=== PATIENT | male | born 1955 | race Caucasian/White ===

== ENCOUNTER → 2020-03-28 14:55 | Outpatient (BNVA) | payer MEDICARE, OTHER, SELFPAY | PROVIDERS: PCP Internal Medicine; Referring Provider Internal Medicine; Visit Provider Internal Medicine Cardiovascular Disease | DX: R06.00 Dyspnea, unspecified (principal); I48.0 Paroxysmal atrial fibrillation; R09.89 Other specified symptoms and signs involving the circulatory and respiratory systems; Z87.891 Personal history of nicotine dependence | CPT/HCPCS: 93005; 99212 ==

== ENCOUNTER 2020-04-11 14:54 | Outpatient (REF) | payer MEDICARE, OTHER, SELFPAY ==
--- NOTE | 2020-04-11 15:16 | US_ITS ---
EXAMINATION: US EXTRACRANIAL CAROTID DUPLEX, BILATERAL CLINICAL INFORMATION: Left carotid bruit COMPARISON: None TECHNIQUE: Real-time ultrasound and Doppler techniques (integrating B-mode 2-D vascular images, Doppler spectral analysis and color-flow Doppler imaging) were utilized to interrogate the extracranial carotid arteries, the vertebral arteries and proximal subclavian arteries bilaterally. The degree of stenosis is determined by criteria similar to NASCET. FINDINGS: Right Side: 1. There is moderate calcified and noncalcified atherosclerotic plaque seen in the bifurcation/proximal ICA region. 2. The common carotid artery PSV proximally is 161 cm/s and distally 151 cm/s. 3. The proximal internal carotid artery velocities are 156 cm/s systolic and 22 cm/s diastolic. 4. The proximal external carotid artery PSV is 153 cm/s. 5. The vertebral artery shows antegrade flow. 6. The subclavian artery waveforms are normal. Peak systolic velocity measures 221 cm/s suggestive of stenosis.. Left Side: 1. There is significant noncalcified or soft plaque seen in the left common carotid artery. There is mild calcified and noncalcified atherosclerotic plaque seen in the bifurcation/proximal ICA region. 2. The common carotid artery PSV proximally is 185 cm/s and distally 521 cm/s. 3. The proximal internal carotid artery velocities are 85 cm/s systolic and 17 cm/s diastolic. 4. The proximal external carotid artery PSV is 205 cm/s. 5. The vertebral artery shows antegrade flow. 6. The subclavian artery waveforms are normal. US/US carotid duplex BI IMPRESSION: 1. RIGHT: Moderate calcified and noncalcified plaque. 50-79% right ICA stenosis. Increased peak systolic velocity suggestive of right subclavian stenosis 2. LEFT: Severe noncalcified soft plaque in the left common carotid artery. Markedly increased peak systolic velocity in the common carotid artery suggestive of common carotid artery stenosis. Mild calcified and noncalcified plaque at the left carotid bulb. 0-49% left ICA stenosis. Increased peak systolic velocity suggestive of left ECA stenosis.
== END 2020-04-11 14:55 | disposition home or self-care (01) ==
LOC: HO.US 14:54
PROVIDERS: PCP Internal Medicine; Visit Provider Internal Medicine Cardiovascular Disease
DX: R09.89 Other specified symptoms and signs involving the circulatory and respiratory systems (principal)
CPT/HCPCS: 93880

== ENCOUNTER → 2020-04-19 14:20 | Outpatient (BNVA) | payer MEDICARE, OTHER, SELFPAY | PROVIDERS: PCP Internal Medicine; Referring Provider Internal Medicine; Visit Provider Surgery Vascular Surgery | DX: I65.23 Occlusion and stenosis of bilateral carotid arteries (principal) | CPT/HCPCS: 99212 ==

== ENCOUNTER 2020-04-26 13:26 | Outpatient (REF) | payer MEDICARE, OTHER, SELFPAY ==
[2020-04-26 17:19] LABS: Blood Urea Nitrogen 23 mg/dL (9-16); Estimated Glomerular Filt Rate 47
== END 2020-04-26 13:27 | disposition home or self-care (01) ==
LOC: HO.HMGCLDS 13:26
PROVIDERS: PCP Internal Medicine; Visit Provider Surgery Vascular Surgery
DX: I65.23 Occlusion and stenosis of bilateral carotid arteries (principal)
CPT/HCPCS: 82565; 84520

== ENCOUNTER 2020-05-02 13:57 | Outpatient (REF) | payer MEDICARE, OTHER, SELFPAY ==
--- NOTE | 2020-05-02 14:00 | CT_ITS ---
EXAMINATION: CT ANGIOGRAM NECK WITH CONTRAST CLINICAL INFORMATION: Occlusion and stenosis of bilateral carotid arteries. COMPARISON: Carotid ultrasound 04/11/2020. TECHNIQUE: Test bolus sequences followed by intravenous administration 70 mL of Omnipaque 350. Helical imaging was performed in the axial plane from the thoracic inlet to the skull base. The data was processed at the certified surgical technologist workstation for generation of MIP sequences. Angled MIPs and volume rendered reformatted images were also generated at an offline 3D workstation. Stenoses are assessed in accordance with NASCET criteria unless otherwise indicated. DLP: 593 mGy-cm FINDINGS: NECK CTA: Atheromatous changes are seen along the aortic arch but the great vessel origins are patent without significant narrowing. The proximal aspect of the right common carotid artery is difficult to evaluate due to significant artifact related to venous contrast. More distally, the right common carotid artery appears widely patent. Mild atheromatous changes are seen at the right carotid bifurcation without significant narrowing. The right ICA is widely patent. Atheromatous changes are seen along the left common carotid artery without significant stenosis. Mild atheromatous changes are seen at the left carotid bifurcation without significant stenosis. The left ICA is widely patent. The cervical course of the bilateral vertebral arteries are widely patent. PARTIALLY IMAGED HEAD CTA: No proximal vessel occlusion is seen within the imaged intracranial arterial circulation. Atheromatous changes are seen at the bilateral carotid siphons. The imaged [place] arteries are patent. The imaged portions of the intracranial contents appear normal. Postoperative findings related to prior functional endoscopic sinus surgery are noted. There is extensive polypoid opacification throughout the paranasal sinuses including within the nasal cavities. NON-VASCULAR FINDINGS: Emphysema is seen within the upper lungs. Multilevel degenerative changes are seen within the spine. CT/CT angio neck IMPRESSION: Atheromatous changes are seen within the neck but without resultant hemodynamically significant stenosis. Proximal aspect of the right common carotid artery is difficult to evaluate due to significant artifact related to adjacent venous contrast. Postoperative findings of prior functional endoscopic sinus surgery with extensive polypoid opacification noted. Consider ENT follow-up.
[2020-05-02] MEDS: iohexoL 350 MG/ML 100 ML INFUS..BTL IV (15:17)
== END 2020-05-02 13:58 | disposition home or self-care (01) ==
LOC: HO.CT 13:57
PROVIDERS: Visit Provider Surgery Vascular Surgery
DX: I65.23 Occlusion and stenosis of bilateral carotid arteries (principal)
CPT/HCPCS: 70498; Q9967

== ENCOUNTER → 2020-05-03 11:20 | Outpatient (BNVA) | payer MEDICARE, OTHER, SELFPAY | PROVIDERS: PCP Internal Medicine; Visit Provider Surgery Vascular Surgery | DX: I65.23 Occlusion and stenosis of bilateral carotid arteries (principal); I83.11 Varicose veins of right lower extremity with inflammation | CPT/HCPCS: 99212 ==

== ENCOUNTER → 2020-05-30 14:32 | Outpatient (BNVA) | payer MEDICARE, OTHER, SELFPAY | PROVIDERS: PCP Internal Medicine; Visit Provider Hospitalist | DX: J44.9 Chronic obstructive pulmonary disease, unspecified (principal); J31.0 Chronic rhinitis; R91.8 Other nonspecific abnormal finding of lung field; G47.33 Obstructive sleep apnea (adult) (pediatric); Z99.89 Dependence on other enabling machines and devices | CPT/HCPCS: 99212 ==

== ENCOUNTER → 2020-10-03 14:59 | Outpatient (BNVA) | payer MEDICARE, OTHER, SELFPAY | PROVIDERS: PCP Internal Medicine; Visit Provider Internal Medicine Cardiovascular Disease | DX: I48.0 Paroxysmal atrial fibrillation (principal); R60.0 Localized edema | CPT/HCPCS: 93005; 99212 ==

== ENCOUNTER → 2020-10-18 15:26 | Outpatient (BNVA) | payer MEDICARE, OTHER, SELFPAY | PROVIDERS: PCP Internal Medicine; Visit Provider Hospitalist | DX: L03.116 Cellulitis of left lower limb (principal); R91.8 Other nonspecific abnormal finding of lung field; G47.33 Obstructive sleep apnea (adult) (pediatric); J31.0 Chronic rhinitis; J44.9 Chronic obstructive pulmonary disease, unspecified; R60.0 Localized edema; Z99.89 Dependence on other enabling machines and devices; Z79.899 Other long term (current) drug therapy; Z87.891 Personal history of nicotine dependence | CPT/HCPCS: 99212 ==

== ENCOUNTER 2020-10-22 12:22 | Outpatient (REF) | payer MEDICARE, OTHER, SELFPAY ==
[2020-10-22 14:10] LABS: MANUAL DIFF FLAG NO
[2020-10-22 14:14] LABS: Basophils Percent Auto 0.1 % (0-2); Hematocrit 44.3 % (42-52); Hemoglobin 14.7 g/dl (14.0-18.0); Imm Gran Abs Auto 0.03 X10*3/uL (0.00-0.03); Imm Gran Pct Auto 0.3 % (0.0-0.4); Lymphocytes Absolute Auto 2.9 X10*3/uL (1.2-4.9); Lymphocytes Percent Auto 31.6 % (20-40); Mean Corpuscular HGB Conc 33.2 g/dl (31.0-36.0); Mean Corpuscular Hemoglobin 30.4 pg (27.0-33.0); Mean Corpuscular Volume 91.7 fL (80-98); Mean Platelet Volume 10.6 fL (9.4-12.4); Monocytes Absolute Auto 0.9 X10*3/uL (0.1-1.2); Monocytes Percent Auto 10.3 % (2-11); Neutrophils Absolute Auto 5.3 X10*3/uL (2.0-8.3); Neutrophils Percent Auto 57.7 % (45-73); Platelet Count 347 X10*3/uL (160-400); Red Blood Count 4.83 X10*6/uL (4.60-5.80); Red Cell Distribution Width 11.9 % (11.0-16.0); White Blood Count 9.1 X10*3/uL (4.8-10.8)
[2020-10-22 14:26] LABS: D Dimer 256 NG/ML
[2020-10-22 14:27] LABS: Alanine Aminotransferase 21 U/L (0-40); Albumin Level 3.7 g/dL (3.5-5.0); Alkaline Phosphatase 92 U/L (39-117); Anion Gap 13 (12-20); Aspartate Amino Transferase 17 U/L (5-37); Bilirubin Direct 0.3 mg/dL (0.0-0.5); Bilirubin Total 0.6 mg/dL (0.0-1.0); Blood Urea Nitrogen 17 mg/dL (9-16); Calcium 9.1 mg/dL (8.4-10.2); Carbon Dioxide 27 mmol/L (22-29); Chloride 107 mmol/L (96-108); Estimated Glomerular Filt Rate 50; Glucose Random 106 mg/dL (60-115); Potassium 4.1 mmol/L (3.3-5.1); Sodium 143 mmol/L (135-145); Total Protein 6.2 g/dL (6.5-8.0)
[2020-10-22 14:49] LABS: B Type Natriuretic Peptide 48 pg/mL (<100)
[2020-10-22 15:03] LABS: Erythrocyte Sedimentation Rate 8 MM/HR (0-15)
== END 2020-10-22 12:23 | disposition home or self-care (01) ==
LOC: HO.HMGCLDS 12:22
PROVIDERS: PCP Internal Medicine; Visit Provider Hospitalist
DX: J44.9 Chronic obstructive pulmonary disease, unspecified (principal); R60.0 Localized edema; R06.00 Dyspnea, unspecified; R91.8 Other nonspecific abnormal finding of lung field
CPT/HCPCS: 36415; 80048; 80076; 83880; 85025; 85379; 85652

== ENCOUNTER 2020-10-25 09:13 | Emergency (ER) | payer MEDICARE, OTHER, SELFPAY ==
--- NOTE | ~2020-10-25 | XR_ITS ---
EXAMINATION: XR CHEST CLINICAL INFORMATION: Shortness of breath COMPARISON: Previous chest x-ray most recent June 2018 TECHNIQUE: Frontal view of the chest was obtained. FINDINGS: The cardiac and mediastinal contours are stable. The lungs are clear. There is no pleural effusion or pneumothorax. There are degenerative changes of the spine. XR/XR chest 1V IMPRESSION: No evidence for acute disease in the chest.
--- NOTE | ~2020-10-25 | US_ITS ---
EXAMINATION: US VENOUS ULTRASOUND WITH DOPPLER LOWER EXTREMITY, BILATERAL CLINICAL INFORMATION: Swelling and pain both lower extremities COMPARISON: Ultrasound venous bilateral insufficiency exam 10/15/2019. Postablation ultrasound 11/16/2019 TECHNIQUE: Ultrasound of the deep veins is performed from the hip to the calf with compression sonography and color and pulse Doppler assessment. Spectral analysis with color-flow imaging is performed. FINDINGS: RIGHT: There is normal venous compression and respiratory variation and augmented flow. The visualized common femoral vein, superficial femoral vein, profunda femoral vein, popliteal vein, and the trifurcation region shows no evidence of deep venous thrombosis. There is no significant popliteal fossa cyst. Right posterior tibial vein was not visualized LEFT: There is normal venous compression and respiratory variation and augmented flow. The visualized common femoral vein, superficial femoral vein, profunda femoral vein, popliteal vein, and the trifurcation region shows no evidence of deep venous thrombosis. There is no significant popliteal fossa cyst. Left posterior tibial vein was not visualized If the patient's symptoms persist, followup ultrasound in 5 days 7 days might be of value to exclude proximal propagation from a non-visualized calf vein. US/US venous duplex LE BI IMPRESSION: No DVT demonstrated in the bilateral lower extremity.
--- NOTE | ~2020-10-25 | NM_ITS ---
EXAMINATION: NM LUNG IMAGE PERFUSION CLINICAL INFORMATION: Elevated d-dimer and SOB. COMPARISON: Chest x-ray 10/25/2020. TECHNIQUE: Following intravenous administration of 4 mCi of 90 9M technetium MVA, images of both lungs were obtained multiple projections. FINDINGS: There are bilateral nonsegmental defects seen centrally in the hilar region, anterior segment of right upper lobe and left lower lobe there is no segmental or subsegmental defects seen. The findings are suggestive of low to indeterminate probability for PE. No consolidation or atelectasis seen on chest x-ray 10/25/2020. NM/NM pul perfusion IMPRESSION: Multiple nonsegmental defects which could be secondary to respiratory insufficiency. Findings suggestive of low to indeterminate probability.
[2020-10-25 09:26] VITALS: BP 181/72; PULSE 85; RESP 22; TEMP 36.7; O2SAT 95; BMI 33.2
--- NOTE | 2020-10-25 09:37 | ED.GENADULT ---
HPI - General Adult General Chief complaint: General Medical Stated complaint: blood clots on legs Time Seen by Provider: 10/25/20 09:23 Source: patient Mode of arrival: ambulatory Limitations: no limitations History of Present Illness HPI narrative: 65 y/o male with history of COPD/asthma, RAYMOND on CPAP, paroxysmal afib not on anticoagulation, CKD, PVD, LE edema on Lasix who presents to the ED with increased LE edema and abnormal blood work. He saw his Server Programmer last week who ordered blood work. He was called today and told to go to the ER for ultrasound of his legs to r/o blood clot. He reports the last 6 weeks his legs have been more swollen, no improvement with lasix. He denies any chest pain or SOB (beyond his baseline). He has some mild redness of his LLE that has been present for 1 year. He has been dealing with the edema in his legs for about 1 year as well. MD complaint: elevated DDIMER, LE edema Onset (ago): month(s) Location: lower extremity Severity: moderate and similar to prior episodes Quality: aching Pain Consistency: constant Relieving factors: rest Exacerbating factors: movement Associated symptoms: denies other symptoms Treatments prior to arrival: none Related Data Home Medications Medication Instructions Recorded Confirmed levalbuterol HCl 0.63 mg/3 mL mg INHALATION 03/03/20 10/18/20 solution for nebulization omeprazole 20 mg capsule,delayed 20 mg PO DAILY 03/03/20 10/18/20 release tamsulosin 0.4 mg capsule mg PO 03/03/20 10/18/20 dronedarone 400 mg tablet 400 mg PO BID 03/28/20 05/30/20 fluticasone propionate 50 1 spray INTRANASAL DAILY 03/28/20 10/18/20 mcg/actuation nasal spray,suspension gabapentin 100 mg capsule 100 mg PO TID 03/28/20 10/18/20 loratadine 10 mg tablet 10 mg PO DAILY 03/28/20 10/18/20 dronedarone 400 mg tablet 400 mg PO BID 04/19/20 10/18/20 albuterol sulfate 90 mcg/actuation 2 inh INHALATION QID 05/30/20 10/18/20 breath activated powder inhaler benralizumab 30 mg/mL subcutaneous 30 mg SUBCUT Q8W 10/18/20 10/18/20 syringe celecoxib 200 mg capsule mg PO 10/18/20 10/18/20 Previous Rx's Medication Instructions Recorded amoxicillin 500 mg tablet 500 mg PO ONCE 1 Days #4 tab 03/02/20 furosemide 20 mg tablet 20 mg PO DAILY #90 tab 03/03/20 aspirin 81 mg tablet,delayed 81 mg PO DAILY #90 tab 04/11/20 release montelukast 10 mg tablet 10 mg PO DAILY 90 Days #90 tab 05/30/20 roflumilast 500 mcg tablet 500 mcg PO DAILY 90 Days #90 tab 05/30/20 arformoterol 15 mcg/2 mL solution 2 ml INHALATION BID #360 ml 08/15/20 for nebulization budesonide 0.5 mg/2 mL suspension 0.5 mg INHALATION BID #360 ml 08/15/20 for nebulization atorvastatin 80 mg tablet 80 mg PO DAILY #90 tab 08/17/20 doxycycline monohydrate 100 mg 100 mg PO BID 10 Days #20 tab 10/12/20 tablet bupropion HCl 75 mg tablet 150 mg PO BID 90 Days #360 tab 10/18/20 doxycycline hyclate 100 mg capsule 100 mg PO BID 11 Days #22 cap 10/18/20 levalbuterol HCl 1.25 mg/3 mL 1.25 mg INHALATION BID 90 Days 10/18/20 solution for nebulization #540 ml prednisone 10 mg tablet 10 mg PO DAILY 18 Days #63 tab 10/18/20 prednisone 10 mg tablet 10 mg PO DAILY 18 Days #63 tab 10/18/20 apixaban [Eliquis DVT-PE Treat 30D 5 mg PO PER PKG DIR #74 ea 10/25/20 Start] Allergies Allergy/AdvReac Type Severity Reaction Status Date / Time watermelon [WATERMELON] Allergy Severe ANAPHYLAXIS Verified 10/18/20 15:50 Iodinated Contrast Media Allergy Intermediate LIGHT Verified 10/18/20 15:50 [IV CONTRAST] HEADED AND SHORTNESS OF BREATH Review of Systems Review of Systems: Constitutional: No Fever, No Chills ENT/Mouth: No sore throat, No Rhinorrhea, No Swallowing Difficulty Cardiovascular: No Chest Pain, + SOB, No Orthopnea, + Edema Respiratory: No Cough, No Sputum, No Wheezing, + dyspnea Gastrointestinal: No Nausea, No Vomiting, No Diarrhea, No abdominal Pain Genitourinary: No Dysuria, No Urinary Frequency, No Hematuria Musculoskeletal: No joint pain, No Myalgias Skin: No Skin Lesions, No rash Neuro: No Weakness, No Numbness, No Dizziness, No Headache Psych: No Anxiety/Panic, No Depression Heme/Lymph: No Bruising, No Lymphadenopathy Endocrine: No Polyuria, No Polydipsia [facility] Past Medical History Medical History AC (acromioclavicular) joint arthritis Asthma-COPD overlap syndrome Atrial fibrillation BPH (benign prostatic hyperplasia) Chronic rhinitis COPD (chronic obstructive pulmonary disease) GAINES (dyspnea on exertion) Echocardiogram abnormal Edema leg Encounter for screening for lung cancer Hyperlipidemia RAYMOND on CPAP Pulmonary nodules Seasonal allergies Sleep apnea Venous insufficiency of both lower extremities Surgical History H/O colonoscopy History of cataract History of rotator cuff surgery History of surgery Family History Family History Father No problems noted. Mother CAD (coronary artery disease) CHF (congestive heart failure) HTN (hypertension) Brother No problems noted. Brother No problems noted. Sister No problems noted. Sister No problems noted. Sister No problems noted. Son No problems noted. Son No problems noted. Social History Social History (Updated 10/18/20 @ 15:39 by Khadra Ferrer MA) Alcohol intake: current Alcohol intake frequency: a few times a week Patient Tobacco Use Status: Former Tobacco user Tobacco use type: Cigarette Years Smoked: 40 years Use of substances other than those prescribed or required for medical reasons: No Advance Directives: Yes Advance Directives Information Provided: Yes Advance Directives on File: No Physical Exam Vital Signs: Vital Signs: Last Vital Signs Temp 98.1 F 10/25/20 09:26 Pulse 85 10/25/20 09:26 Resp 22 H 10/25/20 09:26 BP 181/72 H 10/25/20 09:26 Pulse Ox 95 10/25/20 09:26 Body Mass Index 33.2 Appearance: Alert. Oriented X3. No acute distress. Eyes: Pupils equal, round and reactive to light. ENT: Pharynx normal. Neck: Normal inspection. Neck supple. CVS: Normal heart rate and rhythm. Pulses normal. Respiratory: No respiratory distress. Breath sounds normal. Abdomen: Soft and nontender. +BS x4 Skin: Skin warm and dry. Normal skin color. Normal skin turgor. No rashes. Extremities: 4+ lower extremity edema. Neuro: Oriented X 3. No motor deficit. No sensory deficit. Course Course Course Narrative: 65 y/o male presenting with increased LE edema x6 weeks and recent outpatient blood work showing DDIMER of 256. No SOB or chest pain. Will get LE dopplers to assess for clot. Reevaluation(s) Reevaluation #1: LE dopplers are negative. Given elevated ddimer will proceed with V/Q scan to r/o DVT (CKD with GFR in the 40's, unable to do CTA). Reevaluation #2: V/Q scan showing multiple nonsegmental defects which could be secondary to respiratory insufficieny, finding suggestive of low to intermediate probability. Spoke with the patient about the test results and concern for possible pulmonary embolism. He has a CHADSVASc of 2 and Cardiology had recommended anticoagulation, however he refused. We discussed the scoring system, risk of stroke, in addition to the possibility of blood clots in the lungs is recommended he start anticoagulation. He was ultimately agreeable to starting. Risks and benefits were discussed in detail. He is agreeable to starting Eliquis and he will follow up with his Pulmologist and Freight Breaker moving forward. He is interested in arranging a new PCP and is working on that. Eliquis sent to his pharmacy and he was counseled on how to take it. He expressed understanding. Stable for d/c home. Discharge Plan Discharge Clinical Impression: Edema leg, Abnormal diagnostic test result Patient Disposition: Home, Self-Care Instructions: Apixaban (By mouth), Leg Edema (ED), Low-Sodium Diet (ED) Additional Instructions: Your ultrasound was negative for blood clots. Your lung scan showed low to intermediate risk of blood clot in the lungs. Given your atrial fibrillation history and intermediate risk of clots in the lungs, it is recommended that you start anticoagluation AKA blood thinner for treatment and to decrease risk of stroke. A one month prescription of Eliquis was sent to your pharmacy. Take as directed - 10 mg two times per day for 7 days and then 5 mg two times per day moving forward. Follow up with your doctor for continuation of treatment. Monitor for signs and symptoms of bleeding. Continue taking Lasix for your leg swelling. CUT OUT SALT from your diet. Elevate your legs whenever possible. If you have worsening shortness of breath or leg swelling or any other concerning symptom come back to the ER for further evaluation. Prescriptions: [place] DVT-PE Treat 30D Start 5 mg (74 tabs) tablets,dose pack 5 mg PO PER PKG DIR Qty: 74 RF: 0 No Action amoxicillin 500 mg tablet 500 mg PO ONCE 1 Days Qty: 4 RF: 3 aspirin [Adult Aspirin Regimen] 81 mg tablet,delayed release (DR/EC) 81 mg PO DAILY Qty: 90 RF: 4 arformoterol [Brovana] 15 mcg/2 mL solution for nebulization 2 ml inhalation BID Qty: 360 RF: 3 budesonide 0.5 mg/2 mL suspension for nebulization 0.5 mg inhalation BID Qty: 360 RF: 3 atorvastatin 80 mg tablet 80 mg PO DAILY Qty: 90 RF: 3 levalbuterol HCl 0.63 mg/3 mL solution for nebulization inhalation RF: 0 tamsulosin 0.4 mg capsule PO RF: 0 omeprazole 20 mg capsule,delayed release(DR/EC) 20 mg PO DAILY RF: 0 furosemide 20 mg tablet 20 mg PO DAILY Qty: 90 RF: 3 benralizumab 30 mg/mL syringe 30 mg subcut Q8W RF: 0 doxycycline monohydrate 100 mg tablet 100 mg PO BID 10 Days Qty: 20 RF: 0 Multaq 400 mg tablet 400 mg PO BID RF: 0 levalbuterol HCl [Xopenex] 1.25 mg/3 mL solution for nebulization 1.25 mg inhalation BID 90 Days Qty: 540 RF: 3 prednisone 10 mg tablet 10 mg PO DAILY 18 Days Qty: 63 RF: 0 prednisone 10 mg tablet 10 mg PO DAILY 18 Days Qty: 63 RF: 0 doxycycline hyclate 100 mg capsule 100 mg PO BID 11 Days Qty: 22 RF: 0 bupropion HCl 75 mg tablet 150 mg PO BID 90 Days Qty: 360 RF: 3 ProAir RespiClick 90 mcg/actuation aerosol powdr breath activated 2 inh inhalation QID RF: 0 montelukast 10 mg tablet 10 mg PO DAILY 90 Days Qty: 90 RF: 3 roflumilast 500 mcg tablet 500 mcg PO DAILY 90 Days Qty: 90 RF: 3 Multaq 400 mg tablet 400 mg PO BID RF: 0 loratadine 10 mg tablet 10 mg PO DAILY RF: 0 fluticasone propionate 50 mcg/actuation spray,suspension 1 spray intranasal DAILY RF: 0 gabapentin 100 mg capsule 100 mg PO TID RF: 0 celecoxib 200 mg capsule PO RF: 0
[2020-10-25] MEDS: Furosemide 40 MG TABLET PO (11:53)
--- NOTE | 2020-10-25 13:31 | PC.NURSE ---
pt ambulating to bathroom several times w steady gait to void, continues to await fo nm vent scan, pt appears to be getting impatient with wait, nm called to help expedite process.
== END 2020-10-25 15:19 | disposition home or self-care (01) ==
PROVIDERS: Emergency Provider Emergency Medicine; PCP Internal Medicine
DX: R22.43 Localized swelling, mass and lump, lower limb, bilateral (principal); M79.662 Pain in left lower leg; M79.661 Pain in right lower leg; R94.2 Abnormal results of pulmonary function studies; I48.0 Paroxysmal atrial fibrillation; Z79.82 Long term (current) use of aspirin; Z79.899 Other long term (current) drug therapy; Z87.891 Personal history of nicotine dependence
CPT/HCPCS: 71045; 78580; 93970; 99284; A9540

== ENCOUNTER → 2021-01-27 13:15 | Outpatient (BNVA) | payer MEDICARE, OTHER, SELFPAY | PROVIDERS: PCP Internal Medicine; Visit Provider Hospitalist | DX: G47.33 Obstructive sleep apnea (adult) (pediatric) (principal); R60.0 Localized edema; J44.9 Chronic obstructive pulmonary disease, unspecified; R91.8 Other nonspecific abnormal finding of lung field; J31.0 Chronic rhinitis; Z99.89 Dependence on other enabling machines and devices | CPT/HCPCS: 99212 ==

== ENCOUNTER → 2021-04-05 12:40 | Outpatient (BNVA) | payer MEDICARE, OTHER, SELFPAY | PROVIDERS: PCP Internal Medicine; Referring Provider Internal Medicine; Visit Provider Internal Medicine Cardiovascular Disease | DX: I48.0 Paroxysmal atrial fibrillation (principal); I65.29 Occlusion and stenosis of unspecified carotid artery; I49.1 Atrial premature depolarization; E78.5 Hyperlipidemia, unspecified; G47.33 Obstructive sleep apnea (adult) (pediatric); Z87.891 Personal history of nicotine dependence; Z82.49 Family history of ischemic heart disease and other diseases of the circulatory system; Z91.041 Radiographic dye allergy status; Z91.018 Allergy to other foods; Z99.89 Dependence on other enabling machines and devices; Z79.82 Long term (current) use of aspirin; Z79.899 Other long term (current) drug therapy | CPT/HCPCS: 93005; 99212 ==

== ENCOUNTER 2021-06-01 08:30 | Outpatient (REF) | payer MEDICARE, OTHER, SELFPAY ==
--- NOTE | ~2021-06-01 | US_ITS ---
EXAMINATION: US EXTRACRANIAL CAROTID DUPLEX, BILATERAL CLINICAL INFORMATION: This is a 65-year-old male with a carotid bruit. COMPARISON: Comparison is made to a previous study dated 04/11/2020 which demonstrated 50-79% right internal carotid artery stenosis and 0-49% left internal carotid artery stenosis and left, carotid artery stenosis. TECHNIQUE: Real-time ultrasound and Doppler techniques (integrating B-mode 2-D vascular images, Doppler spectral analysis and color-flow Doppler imaging) were utilized to interrogate the extracranial carotid arteries, the vertebral arteries and proximal subclavian arteries bilaterally. The degree of stenosis is determined by criteria similar to NASCET. FINDINGS: Right Side: 1. There is moderate atherosclerotic plaque seen in the bifurcation/proximal ICA region. 2. The common carotid artery PSV proximally is 127 cm/s and distally 128 cm/s. 3. The proximal internal carotid artery velocities are 160 cm/s systolic and 20 cm/s diastolic. 4. The proximal external carotid artery PSV is 200 cm/s. There is a mild hemodynamically significant stenosis in the external carotid artery. This appears more severe on the current study when compared to the previous study. 5. The vertebral artery shows antegrade flow. 6. The subclavian artery waveforms are normal. Left Side: 1. There is moderate atherosclerotic plaque seen in the bifurcation/proximal ICA region. 2. The common carotid artery PSV proximally is 166 cm/s and distally 337 cm/s. This is consistent with a hemodynamically subacute stenosis within the common carotid artery. This was seen previously. 3. The proximal internal carotid artery velocities are 106 cm/s systolic and 19 cm/s diastolic. 4. The proximal external carotid artery PSV is 150 cm/s. 5. The vertebral artery shows antegrade flow. 6. The subclavian artery waveforms are normal. US/US carotid duplex BI IMPRESSION: 1. RIGHT: Moderate, hemodynamically significant stenosis of the proximal right internal carotid artery corresponding to a 50-79% stenosis by velocity criteria. The category severity of disease appears unchanged. 2. LEFT: Minimal, non-hemodynamically significant stenosis of the proximal left internal carotid artery corresponding to a 0-49% stenosis by velocity criteria. The category severity of disease appears unchanged. 3. There is a mild hemodynamically significant stenosis in the right external carotid artery which appears more severe on the current study. 4. There is a hemodynamically significant stenosis in the left common carotid artery which was seen previously.
== END 2021-06-01 08:31 | disposition home or self-care (01) ==
LOC: HO.HMGCX 08:30
PROVIDERS: PCP Internal Medicine; Visit Provider Surgery Vascular Surgery
DX: I65.23 Occlusion and stenosis of bilateral carotid arteries (principal)
CPT/HCPCS: 93880

== ENCOUNTER 2021-07-27 12:57 | Outpatient (REF) | payer MEDICARE, OTHER, SELFPAY ==
[2021-07-27 13:43] LABS: MANUAL DIFF FLAG NO
[2021-07-27 14:14] LABS: Basophils Absolute Auto 0.1 X10*3/uL (0.0-0.2); Basophils Percent Auto 0.8 % (0-2); Eosinophils Percent Auto 16.9 % (0-4); Hematocrit 43.3 % (42.0-52.0); Hemoglobin 13.9 g/dl (14.0-18.0); Imm Gran Abs Auto 0.04 X10*3/uL (0.00-0.03); Imm Gran Pct Auto 0.3 % (0.0-0.4); Lymphocytes Percent Auto 17.5 % (20-40); Mean Corpuscular HGB Conc 32.1 g/dl (31.0-36.0); Mean Corpuscular Hemoglobin 29.6 pg (27.0-33.0); Mean Corpuscular Volume 92.1 fL (80.0-98.0); Mean Platelet Volume 10.5 fL (9.4-12.4); Monocytes Absolute Auto 1.4 X10*3/uL (0.1-1.2); Monocytes Percent Auto 11.7 % (2-11); Neutrophils Absolute Auto 6.1 x10*3/uL (2.0-8.3); Neutrophils Percent Auto 52.8 % (45-73); Platelet Count 424 X10*3/uL (160-400); Red Cell Distribution Width 12.3 % (11.0-16.0); White Blood Count 11.6 X10*3/uL (4.8-10.8)
[2021-07-27 14:34] LABS: Alanine Aminotransferase 31 U/L (0-40); Albumin Level 3.8 g/dL (3.5-5.0); Alkaline Phosphatase 126 U/L (39-117); Anion Gap 14 (12-20); Aspartate Amino Transferase 26 U/L (5-37); Bilirubin Total 0.5 mg/dL (0.0-1.0); Blood Urea Nitrogen 21 mg/dL (9-16); Calcium 9.4 mg/dL (8.4-10.2); Carbon Dioxide 26 mmol/L (22-29); Chloride 108 mmol/L (96-108); Cholesterol 123 mg/dL; Estimated Glomerular Filt Rate 46; Glucose Fasting 88 mg/dL (60-99); HDL Cholesterol 45 mg/dL; LDL Cholesterol Calculated 56 mg/dl; Potassium 5.2 mmol/L (3.3-5.1); Sodium 143 mmol/L (135-145); Total Protein 7.1 g/dL (6.5-8.0); Triglycerides 113 mg/dL
[2021-07-27 14:39] LABS: Appearance Urine CLEAR; Color Urine YELLOW; Glucose Urine UA NEG (NEG); Leukocyte Esterase Urine NEG (NEG); Nitrite Urine NEG (NEG); PH 5.5 (5.0-8.0); Specific Gravity - Urine >= 1.030 (1.005-1.025); Urine Blood NEG (NEG); Urine Ketones 15 MG/DL (NEG); Urine Protein NEG (NEG-TRACE)
[2021-07-27 14:54] LABS: Prostate Specific Antigen Scr 0.77 ng/mL (<0.05-4.0); TSH reflex Free T4 1.13 uIU/mL (0.32-4.0)
[2021-07-27 15:02] LABS: Erythrocyte Sedimentation Rate 23 MM/HR (0-15)
[2021-07-27 15:25] LABS: Mucus Urine 1+ /LPF; RBC Urine 0-2 /HPF (0); Squamous Epithelial Cell Urine TRACE /LPF; WBC Urine 0-2 /HPF (0-4)
[2021-07-29 06:32] LABS: Immunoglobulin E 16 kU/L (<OR=114)
[2021-08-03 20:17] LABS: Asperg fumigatus Precip Abs NEGATIVE (NEGATIVE); Micropoly faeni Abs NEGATIVE (NEGATIVE); Pigeon serum Abs NEGATIVE (NEGATIVE); Saccharo pora viridis Abs NEGATIVE (NEGATIVE); Thermo candidus Abs NEGATIVE (NEGATIVE); Thermoa vulgaris #1 NEGATIVE (NEGATIVE)
== END 2021-07-27 12:58 | disposition home or self-care (01) ==
LOC: HO.LAB 12:57
PROVIDERS: PCP Internal Medicine; Visit Provider Hospitalist
DX: Z00.00 Encounter for general adult medical examination without abnormal findings (principal); Z12.5 Encounter for screening for malignant neoplasm of prostate; R60.0 Localized edema; R06.00 Dyspnea, unspecified; R91.8 Other nonspecific abnormal finding of lung field; I48.0 Paroxysmal atrial fibrillation; J44.0 Chronic obstructive pulmonary disease with (acute) lower respiratory infection; J31.0 Chronic rhinitis; G47.33 Obstructive sleep apnea (adult) (pediatric); Z99.89 Dependence on other enabling machines and devices; E78.5 Hyperlipidemia, unspecified
CPT/HCPCS: 36415; 80048; 80053; 80061; 81001; 82785; 84153; 84443; 85025; 85027; 85652; 86331; 86606; 86609; 96372; 99212; J2930

== ENCOUNTER → 2021-08-17 11:46 | Outpatient (BNVA) | payer MEDICARE, OTHER, SELFPAY | PROVIDERS: PCP Internal Medicine; Visit Provider Hospitalist | DX: J44.0 Chronic obstructive pulmonary disease with (acute) lower respiratory infection (principal); R91.8 Other nonspecific abnormal finding of lung field; J31.0 Chronic rhinitis; G47.33 Obstructive sleep apnea (adult) (pediatric); Z99.89 Dependence on other enabling machines and devices | CPT/HCPCS: 99212 ==

== ENCOUNTER 2021-09-18 10:43 | Day surgery (SDC) | payer MEDICARE, OTHER, SELFPAY ==
[2021-09-13 10:10] VITALS: BMI 33.0
--- NOTE | 2021-09-15 08:42 | P.CONAN_ITS ---
Documented by User: Ping Longoria NP 09/25/21 14:37 HPI - Anesthesia Eval Consult details Narrative: 66yo M for Upper Endoscopy and Colonoscopy Eliquis for afib PMFSH Active Problems Active Problems: All Active Problems (Updated 08/17/21 @ 10:20 by Coco Lau PA-C) COPD (chronic obstructive pulmonary disease) (Acute) PAF (paroxysmal atrial fibrillation) (Acute ~2018) Asthma-COPD overlap syndrome (Acute) Pulmonary nodules (Acute) RAYMOND on CPAP (Acute) Chronic rhinitis (Acute) Varicose veins of right lower extremity with inflammation (Acute) Carotid stenosis, bilateral (Acute) Carotid bruit (Acute) Echocardiogram abnormal (Acute) Encounter for screening for lung cancer (Acute) Edema leg (Acute) Venous insufficiency of both lower extremities (Acute) Past Medical History Medical History (Updated 08/17/21 @ 10:20 by Coco Lau PA-C) 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 Mother CAD (coronary artery disease) CHF (congestive heart failure) HTN (hypertension) Brother No problems noted. Brother No problems noted. Sister No problems noted. Sister No problems noted. Sister No problems noted. Son No problems noted. Son No problems noted. Surgical History Surgical History (Updated 08/17/21 @ 10:15 by Coco Lau PA-C) History of appendectomy History of cataract (~2009) History of colonoscopy History of esophagogastroduodenoscopy (EGD) History of nasal septoplasty (~2008) History of repair of right rotator cuff (~2017) History of total left hip replacement (~2019) Social History Social History Housing: House Alcohol intake: current Alcohol intake frequency: holidays/special occasions only Patient Tobacco Use Status: Former Tobacco user Tobacco use type: Cigarette Years Smoked: 40 years e-Cigarette/Vaping Use: Former Use Second Hand Smoke Exposure: No Use of substances other than those prescribed or required for medical reasons: No Are you DNR?: No Advance Directives: No Advance Directives Information Provided: Yes Advance Directives on File: No Current occupational status: retired Meds Allergies Allergy/AdvReac Type Severity Reaction Status Date / Time watermelon [WATERMELON] Allergy Severe ANAPHYLAXIS Verified 08/17/21 11:49 Iodinated Contrast Media Allergy Intermediate LIGHT Verified 08/17/21 11:49 [IV CONTRAST] HEADED AND SHORTNESS OF BREATH Home Medications Medication Instructions Recorded Confirmed Last Taken Type fluticasone propionate 50 1 spray INTRANASAL DAILY 03/28/20 09/13/21 Unknown History mcg/actuation nasal spray,suspension albuterol sulfate 90 mcg/actuation 2 inh INHALATION QID 05/30/20 09/13/21 Unknown History breath activated powder inhaler (ProAir RespiClick) bupropion HCl 75 mg tablet 75 mg PO BID 01/27/21 09/13/21 Unknown History dupilumab 300 mg/2 mL subcutaneous mg SUBCUT 07/27/21 Unknown History pen injector (Dupixent) Exam Exam Date and Time: September 15, 2021 0842 Height,Weight and Vital Signs: Height 5 ft 9 in Weight 101.605 kg Pertinent Lab Results Pertinent Lab Results: Laboratory Tests 07/27/21 07/27/21 13:42 13:42 WBC 11.6 H Hgb 13.9 L Hct 43.3 Plt Count 424 H Sodium 143 Potassium 5.2 H D Chloride 108 Carbon Dioxide 26 BUN 21 H Creatinine 1.52 H Narrative Narrative: EKG 03/2021 Sinus rhythm with premature atrial complexes.? QT interval 412 milliseconds. CTA shows known nonsignificant stenosis per 03/2021 cardiol visit Assessment and Plan Assessment Anesthesia Assessment: Chart Reviewed Documented by User: Aldair Mora MD 10/01/21 18:21 [facility] Past Medical History Medical History (Updated 08/17/21 @ 10:20 by Coco Lau PA-C) AC (acromioclavicular) joint arthritis Asthma-COPD overlap syndrome BPH (benign prostatic hyperplasia) Chronic rhinitis COPD (chronic obstructive pulmonary disease) Echocardiogram abnormal Edema leg Encounter for screening for lung cancer Hyperlipidemia RAYMOND on CPAP PAF (paroxysmal atrial fibrillation) (~2017) Pulmonary nodules Seasonal allergies Tubular adenoma of colon (~2005) Venous insufficiency of both lower extremities Family History Family History Father No problems noted. Mother CAD (coronary artery disease) CHF (congestive heart failure) HTN (hypertension) Brother No problems noted. Brother No problems noted. Sister No problems noted. Sister No problems noted. Sister No problems noted. Son No problems noted. Son No problems noted. Family history of problems with anesthesia: No Surgical History Surgical History (Updated 08/17/21 @ 10:15 by Coco Lau PA-C) History of appendectomy History of cataract (~2009) History of colonoscopy History of esophagogastroduodenoscopy (EGD) History of nasal septoplasty (~2008) History of repair of right rotator cuff (~2017) History of total left hip replacement (~2019) History of Problems with Anesthesia: No Social History Social History Housing: House Alcohol intake: current Alcohol intake frequency: holidays/special occasions only Patient Tobacco Use Status: Former Tobacco user Tobacco use type: Cigarette Years Smoked: 40 years e-Cigarette/Vaping Use: Former Use Second Hand Smoke Exposure: No Use of substances other than those prescribed or required for medical reasons: No Are you DNR?: No Advance Directives: No Advance Directives Information Provided: Yes Advance Directives on File: No Current occupational status: retired Meds Allergies Allergy/AdvReac Type Severity Reaction Status Date / Time watermelon [WATERMELON] Allergy Severe ANAPHYLAXIS Verified 08/17/21 11:49 Iodinated Contrast Media Allergy Intermediate LIGHT Verified 08/17/21 11:49 [IV CONTRAST] HEADED AND SHORTNESS OF BREATH Home Medications Medication Instructions Recorded Confirmed Last Taken Type fluticasone propionate 50 1 spray INTRANASAL DAILY 03/28/20 09/13/21 Unknown History mcg/actuation nasal spray,suspension albuterol sulfate 90 mcg/actuation 2 inh INHALATION QID 05/30/20 09/13/21 Unknown History breath activated powder inhaler (ProAir RespiClick) bupropion HCl 75 mg tablet 75 mg PO BID 01/27/21 09/13/21 Unknown History dupilumab 300 mg/2 mL subcutaneous mg SUBCUT 07/27/21 Unknown History pen injector (Dupixent) Exam Airway Mallampati Class: II TM Dist: >3cm Neck ROM: Full Loose/Missing/Broken Teeth: Yes (Poor dentition , chipped teeth ) Heart: S1 , S2 Lungs: b/l breath sounds Assessment and Plan Assessment Anesthesia Assessment: Anesthesia Plan Discussed Final Anesthetic Review Family History of Problems with Anesthesia: No History of Problems with Anesthesia: No NPO: Yes ASA Class: III Final Preanesthetic Review: Meds/Allgs Chart Reviewed, Consent Obtained/Reviewed and Anes Risks/Benef Reviewed Patient Risk: Intermediate Procedure Risk: Intermediate Anesthetic Plan Anesthetic Plan: MAC: Disposition: Standard PACU
[2021-09-18 11:23] VITALS: BP 151/61; PULSE 90; RESP 16; TEMP 36.8; O2SAT 96
[2021-09-18] MEDS: Lactated Ringers 1,000 ML 100 ML IVCONT (11:27)
[2021-09-18 13:13] VITALS: BP 110/64; PULSE 117; RESP 20; TEMP 36.1; O2SAT 97
--- NOTE | 2021-09-18 13:17 | P.BOP_ITS ---
Brief Operative Note Date of Service: 09/18/21 Pre-op diagnosis: Watters's, Screening Post-op diagnosis: other (Hiatal hernia, Watters's esophagus, Colon polyps) Procedure: EGD with biopsies, Colonoscopy to the cecum and TI with hot snare polypectomy x 2 with placement of Resolution clips. Surgeon: Kwame Rashid Anesthesia: MAC Was an Global Compensation Manager used for this Procedure?: No Estimated blood loss (mL): 2.0 Pathology: other (A. Cecal polyp B. Polyp at 20cm C. EG Junction at 35cm) Condition: stable Disposition: PACU
[2021-09-18 13:28] VITALS: BP 102/55; PULSE 112; RESP 20; O2SAT 95
[2021-09-18 13:43] VITALS: BP 123/51; PULSE 95; RESP 20; O2SAT 93
[2021-09-18 13:58] VITALS: BP 134/61; PULSE 96; RESP 20; TEMP 36.1; O2SAT 94
--- NOTE | 2021-09-19 01:07 | OP_ITS ---
SURGEON: Kwame Rashid MD INDICATIONS: The patient presents for evaluation of gastroesophageal reflux, Watters esophagus, personal history of tubular adenoma of the colon, family history of colon cancer, and colorectal cancer screening. Full consent was obtained from him for both procedures, including risks of bleeding and perforation. PREOPERATIVE DIAGNOSIS: POSTOPERATIVE DIAGNOSIS: PROCEDURE PERFORMED: Esophagogastroduodenoscopy with biopsies, and colonoscopy to the cecum and terminal ileum with hot snare polypectomy and placement of Resolution Clips. ESTIMATED BLOOD LOSS: COMPLICATIONS: ANESTHESIA: Monitored anesthesia care. ASSISTANTS: SPECIMENS: PREOPERATIVE DIAGNOSES: Gastroesophageal reflux, Watters esophagus, personal history of tubular adenoma of the colon, family history of colon cancer, and colorectal cancer screening. POSTOPERATIVE DIAGNOSES: Gastroesophageal reflux, Watters esophagus, personal history of tubular adenoma of the colon, family history of colon cancer, and colorectal cancer screening, hiatal hernia, colon polyps, diverticulosis, and internal hemorrhoids. DESCRIPTION OF PROCEDURE: The patient was placed in the left lateral decubitus position. The digital rectal exam revealed no abnormalities. The Roomish video pediatric colonoscope was entered into the rectum and advanced easily to the cecum. Once in the cecum, I did identify normal-appearing cecal pouch other than an approximately 8 to 10 mm polyp. The terminal ileum was cannulated and appeared normal. The scope was withdrawn back in the colon. The entire cecum was well visualized and appeared normal other than the 10 mm polyp. This was removed by hot snare polypectomy and recovered by suction. A single clip was applied to the polypectomy site with good hemostasis and good deployment. There was no sign of any residual polyp. The scope was then slowly withdrawn assessing all mucosal surfaces carefully. Preparation was excellent. At 20 cm was an approximately 6 mm grossly adenomatous polyp, which was removed by hot snare polypectomy and recovered by suction. The polypectomy site appeared clean, without any sign of residual polyp nor bleeding. A single clip was applied with good hemostasis and good deployment. I did not visualize any other polyps, colitis, nor angiodysplasia. There was a mild amount of sigmoid diverticulosis. In the rectum, scope was retroflexed, visualizing internal hemorrhoids, but no other pathology. The rectal mucosa appeared normal. The scope was straightened and withdrawn from the patient. He was turned around for the upper endoscopy. The Olympus video gastroscope was passed in the posterior oropharynx and upper esophagus under direct vision. The scope was passed slowly into the distal esophagus. The gastroesophageal junction appeared at 35 cm. There were some small, less than 1 cm, areas of Watters mucosa. There was no esophagitis nor any lesions. The scope entered the stomach. There was a small hiatal hernia. The scope was advanced to pylorus and the duodenum was cannulated to the descending portion. The duodenum including the bulb appeared normal without mass or ulceration. The scope was withdrawn back in the stomach. The gastric antrum and body appeared normal with good peristalsis. The scope was retroflexed visualizing the proximal stomach carefully, which appeared normal, without any sign of mass or ulceration. The scope was straightened and withdrawn back in the esophagus. Biopsies were obtained at 35 cm in the area of Watters mucosa. Proximal to this, the esophageal mucosa appeared normal. The scope was withdrawn from the patient. He tolerated both procedures well and was returned to recovery area in stable condition. IMPRESSION: 1. Colon polyps. 2. Diverticulosis. 3. Internal hemorrhoids. 4. History of Watters esophagus. 5. Hiatal hernia. PLAN: The results of biopsies will be checked. I would recommend a repeat upper endoscopy and colonoscopy in 5 years for further surveillance. He was advised to resume his aspirin and Eliquis in 48 hours. He was advised to avoid NSAIDs. At this point, he is asymptomatic in regard to reflux and therefore, I do not think he needs to be on any acid suppression at this point since there is no evidence of any esophagitis. MD SHANICE Floyd/MARTÍN / [id number]
== END 2021-09-18 14:38 | disposition home or self-care (01) ==
PROVIDERS: PCP Internal Medicine; Visit Provider Internal Medicine
PROC: (CPT 45385; principal; 2021-09-18 11:50)
DX: Z12.11 Encounter for screening for malignant neoplasm of colon (principal); Z86.010 Personal history of colon polyps; Z80.0 Family history of malignant neoplasm of digestive organs; D12.0 Benign neoplasm of cecum; K63.5 Polyp of colon; K57.30 Diverticulosis of large intestine without perforation or abscess without bleeding; K21.9 Gastro-esophageal reflux disease without esophagitis; K22.70 Barrett's esophagus without dysplasia; K44.9 Diaphragmatic hernia without obstruction or gangrene; J44.9 Chronic obstructive pulmonary disease, unspecified; E78.5 Hyperlipidemia, unspecified; I48.0 Paroxysmal atrial fibrillation; R91.8 Other nonspecific abnormal finding of lung field; Z79.01 Long term (current) use of anticoagulants; Z79.82 Long term (current) use of aspirin; Z99.89 Dependence on other enabling machines and devices; Z87.891 Personal history of nicotine dependence
CPT/HCPCS: 45385; 43239; 88305; J3010

== ENCOUNTER → 2021-11-23 14:31 | Outpatient (BNVA) | payer MEDICARE, OTHER, SELFPAY | PROVIDERS: PCP Internal Medicine; Referring Provider Internal Medicine; Visit Provider Nurse Practitioner Family | DX: I48.0 Paroxysmal atrial fibrillation (principal); I65.23 Occlusion and stenosis of bilateral carotid arteries; I87.2 Venous insufficiency (chronic) (peripheral); G47.33 Obstructive sleep apnea (adult) (pediatric); Z79.01 Long term (current) use of anticoagulants; Z79.899 Other long term (current) drug therapy; Z99.89 Dependence on other enabling machines and devices | CPT/HCPCS: 93005; 99212 ==

== ENCOUNTER → 2022-01-02 14:02 | Outpatient (BNVA) | payer MEDICARE, OTHER, SELFPAY | PROVIDERS: PCP Internal Medicine; Visit Provider Hospitalist | DX: J44.1 Chronic obstructive pulmonary disease with (acute) exacerbation (principal); J31.0 Chronic rhinitis; R91.8 Other nonspecific abnormal finding of lung field; G47.33 Obstructive sleep apnea (adult) (pediatric); Z99.89 Dependence on other enabling machines and devices | CPT/HCPCS: 94640; 96372; 99212; J2930 ==

== ENCOUNTER 2022-01-18 10:32 | Outpatient (REF) | payer MEDICARE, OTHER, SELFPAY ==
--- NOTE | ~2022-01-18 | US_ITS ---
EXAMINATION: US EXTRACRANIAL CAROTID DUPLEX, BILATERAL CLINICAL INFORMATION: Carotid bruit. Smoking, hyperlipidemia. COMPARISON: 06/01/2021. TECHNIQUE: Real-time ultrasound and Doppler techniques (integrating B-mode 2-D vascular images, Doppler spectral analysis and color-flow Doppler imaging) were utilized to interrogate the extracranial carotid arteries, the vertebral arteries and proximal subclavian arteries bilaterally. The degree of stenosis is determined by criteria similar to NASCET. FINDINGS: Right Side: 1. There is moderate atherosclerotic plaque seen in the bifurcation/proximal ICA region. 2. The common carotid artery PSV proximally is 170 cm/s and distally 166 cm/s. 3. The proximal internal carotid artery velocities are 158 cm/s systolic and 20 cm/s diastolic. 4. The proximal external carotid artery PSV is 179 cm/s. 5. The vertebral artery shows antegrade flow. 6. The subclavian artery waveforms are normal. Left Side: 1. There is mild atherosclerotic plaque seen in the bifurcation/proximal ICA region. 2. The common carotid artery PSV proximally is 192 cm/s and distally 172 cm/s. 3. The proximal internal carotid artery velocities are 104 cm/s systolic and 80 cm/s diastolic. 4. The proximal external carotid artery PSV is 165 cm/s. 5. The vertebral artery shows antegrade flow. 6. The subclavian artery velocity is elevated at 251 cm/s. US/US carotid duplex BI IMPRESSION: 1. RIGHT: Moderate, hemodynamically significant stenosis of the proximal right internal carotid artery corresponding to a 50-79% stenosis by velocity criteria. 2. LEFT: Minimal, non-hemodynamically significant stenosis of the proximal left internal carotid artery corresponding to a 0-49% stenosis by velocity criteria. 3. There is no change in the category severity of disease when compared to the previous study dated 06/01/21.
== END 2022-01-18 10:33 | disposition home or self-care (01) ==
LOC: HO.US 10:32
PROVIDERS: Visit Provider Nurse Practitioner Family
DX: I65.23 Occlusion and stenosis of bilateral carotid arteries (principal); R09.89 Other specified symptoms and signs involving the circulatory and respiratory systems; E78.5 Hyperlipidemia, unspecified; Z72.0 Tobacco use
CPT/HCPCS: 93880

== ENCOUNTER → 2022-02-15 14:42 | Outpatient (BNVA) | payer MEDICARE, OTHER, SELFPAY | PROVIDERS: PCP Internal Medicine; Visit Provider Hospitalist | DX: J44.9 Chronic obstructive pulmonary disease, unspecified (principal); J31.0 Chronic rhinitis; R91.8 Other nonspecific abnormal finding of lung field; G47.33 Obstructive sleep apnea (adult) (pediatric); Z99.89 Dependence on other enabling machines and devices | CPT/HCPCS: 99212 ==

== ENCOUNTER → 2022-03-22 14:06 | Outpatient (BNVA) | payer MEDICARE, OTHER, SELFPAY | PROVIDERS: PCP Internal Medicine; Visit Provider Surgery Vascular Surgery | DX: I65.23 Occlusion and stenosis of bilateral carotid arteries (principal); I83.11 Varicose veins of right lower extremity with inflammation; I83.12 Varicose veins of left lower extremity with inflammation | CPT/HCPCS: 99212 ==

== ENCOUNTER → 2022-05-24 14:16 | Outpatient (BNVA) | payer MEDICARE, OTHER, SELFPAY | PROVIDERS: PCP Internal Medicine; Visit Provider Hospitalist | DX: J44.1 Chronic obstructive pulmonary disease with (acute) exacerbation (principal); J31.0 Chronic rhinitis; R06.02 Shortness of breath; U07.1 COVID-19; R91.8 Other nonspecific abnormal finding of lung field; G47.33 Obstructive sleep apnea (adult) (pediatric); Z99.89 Dependence on other enabling machines and devices | CPT/HCPCS: Q3014 ==

== ENCOUNTER → 2022-06-07 12:56 | Outpatient (BNVA) | payer MEDICARE, OTHER, SELFPAY | PROVIDERS: PCP Internal Medicine; Referring Provider Internal Medicine; Visit Provider Nurse Practitioner Family | DX: I48.0 Paroxysmal atrial fibrillation (principal); I65.23 Occlusion and stenosis of bilateral carotid arteries; I87.2 Venous insufficiency (chronic) (peripheral); E78.5 Hyperlipidemia, unspecified; G47.33 Obstructive sleep apnea (adult) (pediatric); Z87.891 Personal history of nicotine dependence; Z99.89 Dependence on other enabling machines and devices | CPT/HCPCS: 93005; 99212 ==

== ENCOUNTER 2022-06-22 09:45 | Outpatient (REF) | payer MEDICARE, OTHER, SELFPAY ==
[2022-06-22 11:17] LABS: MANUAL DIFF FLAG NO
[2022-06-22 11:24] LABS: Appearance Urine Clear; Color Urine Yellow; Glucose Urine UA Negative (Negative); Leukocyte Esterase Urine Negative (Negative); Nitrite Urine Negative (Negative); PH 5.5 (5.0-9.0); Urine Blood Negative (Negative); Urine Ketones Negative (Negative); Urine Protein Negative (Neg-Trace)
[2022-06-22 11:37] LABS: Basophils Absolute Auto 0.1 X10*3/uL (0.0-0.2); Basophils Percent Auto 0.5 % (0-2); Eosinophils Absolute Auto 0.2 X10*3/uL (0.0-0.4); Eosinophils Percent Auto 1.9 % (0-4); Hematocrit 44.8 % (42.0-52.0); Hemoglobin 14.3 g/dl (14.0-18.0); Imm Gran Abs Auto 0.04 X10*3/uL (0.00-0.03); Imm Gran Pct Auto 0.4 % (0.0-0.4); Lymphocytes Absolute Auto 2.8 X10*3/uL (1.2-4.9); Lymphocytes Percent Auto 24.5 % (20-40); Mean Corpuscular HGB Conc 31.9 g/dl (31.0-36.0); Mean Corpuscular Hemoglobin 29.9 pg (27.0-33.0); Mean Corpuscular Volume 93.7 fL (80.0-98.0); Mean Platelet Volume 10.4 fL (9.4-12.4); Monocytes Absolute Auto 1.2 X10*3/uL (0.1-1.2); Monocytes Percent Auto 10.1 % (2-11); Neutrophils Absolute Auto 7.1 x10*3/uL (2.0-8.3); Neutrophils Percent Auto 62.6 % (45-73); Platelet Count 375 X10*3/uL (160-400); Red Blood Count 4.78 X10*6/uL (4.60-5.80); Red Cell Distribution Width 12.6 % (11.0-16.0); White Blood Count 11.4 X10*3/uL (4.8-10.8)
[2022-06-22 11:50] LABS: Alanine Aminotransferase 35 U/L (0-40); Albumin Level 3.7 g/dL (3.5-5.0); Alkaline Phosphatase 90 U/L (39-117); Anion Gap 15 (12-20); Aspartate Amino Transferase 20 U/L (5-37); Bilirubin Total 0.5 mg/dL (0.0-1.0); Blood Urea Nitrogen 19 mg/dL (9-16); Calcium 9.2 mg/dL (8.4-10.2); Carbon Dioxide 27 mmol/L (22-29); Chloride 105 mmol/L (96-108); Cholesterol 157 mg/dL; Estimated Glomerular Filt Rate 52; Glucose Fasting 96 mg/dL (60-99); HDL Cholesterol 65 mg/dL; LDL Cholesterol Calculated 80 mg/dl; Potassium 4.3 mmol/L (3.3-5.1); Sodium 143 mmol/L (135-145); Total Protein 6.5 g/dL (6.5-8.0); Triglycerides 61 mg/dL
[2022-06-22 11:56] LABS: Prostate Specific Antigen Scr 0.86 ng/mL (<0.05-4.0); TSH reflex Free T4 1.13 uIU/mL (0.32-4.0)
[2022-06-22 12:05] LABS: Creatinine Urine 123.09 mg/dL; Microalbumin Urine < 5.0 mg/L
== END 2022-06-22 09:46 | disposition home or self-care (01) ==
LOC: HO.HMGCLDS 09:45
PROVIDERS: PCP Family Medicine; Visit Provider Family Medicine
DX: Z00.00 Encounter for general adult medical examination without abnormal findings (principal); I10 Essential (primary) hypertension; Z12.5 Encounter for screening for malignant neoplasm of prostate
CPT/HCPCS: 36415; 80053; 80061; 81003; 82043; 84153; 84443; 85025

== ENCOUNTER → 2022-07-26 12:54 | Outpatient (BNVA) | payer MEDICARE, OTHER, SELFPAY | PROVIDERS: PCP Family Medicine; Visit Provider Urology | DX: N40.1 Benign prostatic hyperplasia with lower urinary tract symptoms (principal); N13.8 Other obstructive and reflux uropathy; R39.11 Hesitancy of micturition; Z79.899 Other long term (current) drug therapy; Z99.89 Dependence on other enabling machines and devices | CPT/HCPCS: 51798; 99202 ==

== ENCOUNTER → 2022-09-13 14:25 | Outpatient (BNVA) | payer MEDICARE, OTHER, SELFPAY | PROVIDERS: PCP Family Medicine; Visit Provider Hospitalist | DX: J44.1 Chronic obstructive pulmonary disease with (acute) exacerbation (principal); J31.0 Chronic rhinitis; R91.8 Other nonspecific abnormal finding of lung field; G47.33 Obstructive sleep apnea (adult) (pediatric); Z99.89 Dependence on other enabling machines and devices | CPT/HCPCS: 99212 ==

== ENCOUNTER 2022-10-07 20:12 | Inpatient (IN) | payer MEDICARE, OTHER, SELFPAY ==
--- NOTE | ~2022-10-07 | XR_ITS ---
EXAMINATION: XR CHEST CLINICAL INFORMATION: Dyspnea COMPARISON: None available. TECHNIQUE: 10/25/2020 view of the chest was obtained. FINDINGS: Lung volumes are symmetric. No focal consolidation is seen. Somewhat coarsened appearance of the interstitium appears increased from prior. No evidence of pneumothorax or significant pleural effusion. Cardiac size is within normal limits. Calcification is present at the aortic arch. No acute osseous findings are seen. XR/XR chest 1V IMPRESSION: No focal consolidation. Mildly coarsened appearance of the interstitium may reflect airways disease versus developing interstitial edema in the proper clinical setting.
[2022-10-07 20:20] VITALS: BP 130/64; PULSE 110; RESP 30; TEMP 36.9; O2SAT 90; BMI 32.2
--- NOTE | 2022-10-07 20:22 | ECG_ITS ---
Test Reason : sob Blood Pressure : / mmHG Vent. Rate : 090 BPM Atrial Rate : 090 BPM P-R Int : 174 ms QRS Dur : 084 ms QT Int : 354 ms P-R-T Axes : 062 032 058 degrees QTc Int : 433 ms Normal sinus rhythm Normal ECG When compared with ECG of 01-JUN-2019 11:55, No significant change was found Referred By: Generic ED Physician Electronically Signed By:MAURA BIRMINGHAM
[2022-10-07 20:50] LABS: Basophils Percent Auto 0.2 % (0-2); Hemoglobin 13.4 g/dl (14.0-18.0); Imm Gran Abs Auto 0.13 X10*3/uL (0.00-0.03); Imm Gran Pct Auto 0.6 % (0.0-0.4); Lymphocytes Absolute Auto 1.4 X10*3/uL (1.2-4.9); Lymphocytes Percent Auto 6.9 % (20-40); MANUAL DIFF FLAG SCAN; Mean Corpuscular HGB Conc 32.7 g/dl (31.0-36.0); Mean Corpuscular Volume 91.7 fL (80.0-98.0); Mean Platelet Volume 9.4 fL (9.4-12.4); Monocytes Absolute Auto 1.7 X10*3/uL (0.1-1.2); Monocytes Percent Auto 8.1 % (2-11); Neutrophils Absolute Auto 17.5 x10*3/uL (2.0-8.3); Neutrophils Percent Auto 84.2 % (45-73); Platelet Count 431 X10*3/uL (160-400); Red Blood Count 4.47 X10*6/uL (4.60-5.80); Red Cell Distribution Width 12.7 % (11.0-16.0); SCAN SMEAR FLAG 1; White Blood Count 20.8 X10*3/uL (4.8-10.8)
--- NOTE | 2022-10-07 20:52 | ED.GENADULT ---
HPI - General Adult General Chief complaint: Dyspnea Stated complaint: trouble breathing, coughing Time Seen by Provider: 10/07/22 20:31 Source: patient, family, RN notes reviewed and old records reviewed Mode of arrival: ambulatory Limitations: no limitations History of Present Illness HPI narrative: 67-year-old male past medical history significant for COPD, paroxysmal AFib on Eliquis, obstructive sleep apnea, peripheral vascular disease presents for evaluation of shortness of breath Patient reports increasing shortness of breath over the last week. Denies any fevers or cough. He does not use oxygen at home He has been using his nebulizers with minimal relief. Patient denies any history of congestive heart failure but does have leg swelling Denies any chest pain Denies any history of DVT or PE Related Data Home Medications Medication Instructions Recorded Confirmed fluticasone propionate 50 1 spray intranasal DAILY 03/28/20 09/07/22 mcg/actuation nasal spray,suspension dupilumab 300 mg/2 mL subcutaneous 300 mg subcut 07/27/21 07/26/22 pen injector ([id number]) albuterol sulfate 90 mcg/actuation 2 puff inhalation QID 11/23/21 09/07/22 aerosol inhaler CPAP (CPAP Machine/Device) 02/15/22 07/26/22 nebulizers 02/15/22 07/26/22 tezepelumab-ekko 210 mg/1.91 mL 210 mg subcut Q4W 03/22/22 09/07/22 (110 mg/mL) subcutaneous syringe (Tezspire) Previous Rx's Medication Instructions Recorded furosemide 20 mg tablet 20 mg PO DAILY #90 tabs 01/24/21 apixaban 5 mg tablet (Eliquis) 5 mg PO BID 90 days #180 tabs 11/23/21 bupropion HCl 75 mg tablet 150 mg PO BID 90 days #360 tabs 01/23/22 diclofenac sodium 1 % topical gel 2 g topical QID PRN pain 30 days 04/05/22 #100 grams tamsulosin 0.4 mg capsule (Flomax) 0.4 mg PO BID 90 days #180 caps 04/05/22 budesonide 0.5 mg/2 mL suspension 0.5 mg (2 mL) inhalation BID #360 05/24/22 for nebulization mL dronedarone 400 mg tablet (Multaq) 400 mg PO BID 90 days #180 tabs 06/07/22 levalbuterol HCl 1.25 mg/3 mL 1.25 mg (3 mL) inhalation BID #504 06/11/22 solution for nebulization (Xopenex) mL roflumilast 500 mcg tablet 500 mcg PO DAILY #90 tabs 07/06/22 (Daliresp) montelukast 10 mg tablet 10 mg PO DAILY #90 tabs 07/23/22 prednisone 1 mg tablet 4 mg PO DAILY 30 days #120 tabs 09/13/22 prednisone 10 mg tablet 20 mg PO DAILY 30 days #60 tabs 09/13/22 arformoterol 15 mcg/2 mL solution 15 mcg (2 mL) inhalation BID #360 09/17/22 for nebulization (Brovana) mL atorvastatin 80 mg tablet 80 mg PO DAILY #90 tabs 10/03/22 Allergies Allergy/AdvReac Type Severity Reaction Status Date / Time watermelon [WATERMELON] Allergy Severe ANAPHYLAXIS Verified 10/07/22 20:20 Iodinated Contrast Media Allergy Intermediate LIGHT Verified 10/07/22 20:20 [IV CONTRAST] HEADED AND SHORTNESS OF BREATH Review of Systems Constitutional: Constitutional: Reports as per HPI, Denies chills, Denies fatigue, Denies fever(s) and Denies headache(s) ENT: Denies headache(s) Cardiovascular: Cardiovascular: Denies chest pain, Denies pedal edema, Denies leg edema, Reports dyspnea and Reports dyspnea on exertion Respiratory: Respiratory: Denies cough, Reports dyspnea and Reports dyspnea on exertion Gastrointestinal: Gastrointestinal: Denies abdominal pain, Denies constipation and Denies vomiting Genitourinary: Genitourinary: Denies difficulty urinating and Denies dysuria Neurologic: Denies headache(s) and Denies focal weakness Endocrine: Endocrine: Denies fatigue [facility] Past Medical History Medical History (Updated 10/07/22 @ 23:28 by Oliver Wong) AC (acromioclavicular) joint arthritis Asthma-COPD overlap syndrome BPH (benign prostatic hyperplasia) Chronic rhinitis COPD (chronic obstructive pulmonary disease) Echocardiogram abnormal Edema leg Encounter for screening for lung cancer Hyperlipidemia RAYMOND on CPAP PAF (paroxysmal atrial fibrillation) (~2017) Pulmonary nodules Seasonal allergies Tubular adenoma of colon (~2005) Venous insufficiency of both lower extremities Surgical History (Updated 09/07/22 @ 09:23 by Mouna Milligan RN) History of appendectomy History of cataract (~2009) History of colonoscopy History of esophagogastroduodenoscopy (EGD) History of nasal septoplasty (~2008) History of repair of right rotator cuff (~2017) History of total left hip replacement (~2019) Family History Family History Father No problems noted. Mother CAD (coronary artery disease) CHF (congestive heart failure) HTN (hypertension) Brother No problems noted. Brother No problems noted. Sister No problems noted. Sister No problems noted. Sister No problems noted. Son No problems noted. Son No problems noted. Social History Social History Housing: House Alcohol intake: current Alcohol intake frequency: holidays/special occasions only Patient Tobacco Use Status: Former Tobacco user Tobacco use type: Cigarette Years Smoked: 40 years Smoked in Last 30 Days: No e-Cigarette/Vaping Use: Former Use Second Hand Smoke Exposure: No Use of substances other than those prescribed or required for medical reasons: No Advance Directives: No Advance Directives Information Provided: No service: No Current occupational status: retired Physical Exam ED Vital Signs: Vital Signs - 24 hr 10/07/22 20:20 10/07/22 21:05 10/07/22 21:20 Temperature 98.4 F 98.2 F Pulse Rate 110 H 95 90 Respiratory Rate 30 H 20 16 Blood Pressure 130/64 142/54 H Pulse Oximetry 90 L 96 Oxygen Delivery Method Room Air Nasal Cannula Oxygen Flow Rate 2 BMI result Body Mass Index 32.2 Const General: healthy appearing, comfortable, no acute distress, alert and awake Nutritional Appearance: well nourished Orientation/consciousness: patient oriented x3 HENMT Head: Yes normocephalic and Yes atraumatic Throat: Yes posterior oropharynx normal Eyes Eyelids: Yes eyelids normal Conjunctivae: conjunctivae normal Sclerae: sclerae normal Corneas: corneas normal Pupils: Equal, round and reactive pupils present EOM: EOMs intact bilaterally Neck Neck: Yes full ROM Resp Other: Increase respiratory effort. Patient has diffuse expiratory wheeze, no crackles noted. Effort & Inspection: abnormal respiratory effort and audible wheezes Auscultation: not clear to auscultation bilaterally, no crackles, no rales, rhonchi and wheezes Cardio Other: No lower extremity edema Rate: regular rate Rhythm: regular rhythm GI Inspection: No distended Palpation (GI): Soft to palpation, not firm, nontender, no guarding and not rigid Auscultation: normoactive bowel sounds Skin General skin exam: no rashes or lesions noted and elasticity normal Neuro General: patient oriented x3 Cranial nerves: Yes Equal, round and reactive pupils present and Yes Bilaterally intact EOM present Cognition (Neuro): normal cognition Extrem Other: Moving all extremities well without any obvious deformities Course Reevaluation(s) Reevaluation #1: Patient's chest x-ray shows no evidence of focal infiltrate. There is a question of interstitial edema. The patient's BNP is only 80. He has no lower extremity edema, no crackles on exam. No JVD, less likely to be CHF. Patient reports feeling much better after his treatment. Will take him for an ambulatory sat to see if he is stable for discharge, his oxygen saturation is currently 96% on 2 L. I turned the oxygen off and will taken for a walk. Time: 23:13 Reevaluation #2: Patient has failed ambulation trial, after walking without oxygen supplementation his sat dropped to is number side quickly, he began tachypneic, tachycardic and very short of breath. Will discuss the hospitalist for admission of exacerbation of chronic lung disease. 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 Time: 23:25 Medications Administered Discontinued Medications Generic Name Dose Route Start Last Admin Trade Name Freq PRN Reason Stop Dose Admin Albuterol Sulfate 7.5 mg/ 0 mg 10/07/22 20:35 10/07/22 21:04 Albuterol/Ipratropium 3 ml INHALE 10/07/22 20:36 7.5 each ONCE ONE Administration Magnesium Sulfate/Dextrose 1 gm in 100 mls @ 100 mls/hr 10/07/22 20:35 10/07/22 22:19 Magnesium Sulfate/D5w IV 10/07/22 21:34 Infused ONCE ONE Infusion Methylprednisolone Sodium Succinate 125 mg 10/07/22 20:35 10/07/22 20:53 Methylprednisolone Sod Succ 125 Mg/2 Ml Vial IVPUSH 10/07/22 20:36 125 mg ONCE ONE Administration Medical Decision Making Medical Decision Making [facility] Narrative: 67-year-old male presents for evaluation of shortness of breath with a history of COPD. He is quite wheezy on exam consistent with a COPD exacerbation. He is tachypneic to 30 respirations per minute, his oxygen saturation is 90% on room air. Will get a chest x-ray, basic labs we will treat with a DuoNeb, Solu-Medrol, magnesium and re-evaluate to determine disposition. Differential Diagnosis COPD exacerbation Asthma Bronchitis Pneumonia Viral syndrome CHF Lab Data 10/07/22 20:45 10/07/22 20:45 Labs: Lab Results 10/07/22 10/07/22 10/07/22 Range/Units 20:45 20:45 20:45 WBC 20.8 H (4.8-10.8) X10*3/uL RBC 4.47 L (4.60-5.80) X10*6/uL Hgb 13.4 L (14.0-18.0) g/dl Hct 41.0 L (42.0-52.0) % MCV 91.7 (80.0-98.0) fL MCH 30.0 (27.0-33.0) pg MCHC 32.7 (31.0-36.0) g/dl RDW 12.7 (11.0-16.0) % Plt Count 431 H (160-400) X10*3/uL MPV 9.4 (9.4-12.4) fL Immature Gran % (Auto) 0.6 H (0.0-0.4) % Neut % (Auto) 84.2 H (45-73) % Lymph % (Auto) 6.9 L (20-40) % [place] % (Auto) 8.1 (2-11) % Eos % (Auto) 0.0 (0-4) % Baso % (Auto) 0.2 (0-2) % Lymph # (Auto) 1.4 (1.2-4.9) X10*3/uL [place] # (Auto) 1.7 H (0.1-1.2) X10*3/uL Eos # (Auto) 0.0 (0.0-0.4) X10*3/uL Baso # (Auto) 0.0 (0.0-0.2) X10*3/uL Abs Immat Gran (auto) 0.13 H (0.00-0.03) X10*3/uL Absolute Neuts (auto) 17.5 H (2.0-8.3) x10*3/uL Absolute Nucleated RBC 0.000 (0.0-0.012) X10*3/uL Nucleated RBC % (auto) 0.0 (0.0-0.2) /100WBC Smear Tech's Comments VERIFIED Sodium 142 (135-145) mmol/L Potassium 4.7 (3.3-5.1) mmol/L Chloride 107 (96-108) mmol/L Carbon Dioxide 24 (22-29) mmol/L Anion Gap 16 (12-20) BUN 20 H (9-16) mg/dL Creatinine 1.36 (0.5-1.4) mg/dL Estim Creat Clear Calc 61.0 Estimated GFR 52 Random Glucose 99 (60-115) mg/dL Calcium 9.0 (8.4-10.2) mg/dL Troponin I High Sens 10.1 (<3.5-35.0) ng/L B-Natriuretic Peptide (<100) pg/mL COVID-19 (AMALIA) (Negative) COVID-19 Clin Com Influenza Type A (JOHANA) (Negative) Influenza Type B (JOHANA) (Negative) Influenza A & B Note 10/07/22 10/07/22 10/07/22 Range/Units 20:45 20:45 20:45 WBC (4.8-10.8) X10*3/uL RBC (4.60-5.80) X10*6/uL Hgb (14.0-18.0) g/dl Hct (42.0-52.0) % MCV (80.0-98.0) fL MCH (27.0-33.0) pg MCHC (31.0-36.0) g/dl RDW (11.0-16.0) % Plt Count (160-400) X10*3/uL MPV (9.4-12.4) fL Immature Gran % (Auto) (0.0-0.4) % Neut % (Auto) (45-73) % Lymph % (Auto) (20-40) % [place] % (Auto) (2-11) % Eos % (Auto) (0-4) % Baso % (Auto) (0-2) % Lymph # (Auto) (1.2-4.9) X10*3/uL [place] # (Auto) (0.1-1.2) X10*3/uL Eos # (Auto) (0.0-0.4) X10*3/uL Baso # (Auto) (0.0-0.2) X10*3/uL Abs Immat Gran (auto) (0.00-0.03) X10*3/uL Absolute Neuts (auto) (2.0-8.3) x10*3/uL Absolute Nucleated RBC (0.0-0.012) X10*3/uL Nucleated RBC % (auto) (0.0-0.2) /100WBC Smear Tech's Comments Sodium (135-145) mmol/L Potassium (3.3-5.1) mmol/L Chloride (96-108) mmol/L Carbon Dioxide (22-29) mmol/L Anion Gap (12-20) BUN (9-16) mg/dL Creatinine (0.5-1.4) mg/dL Estim Creat Clear Calc Estimated GFR Random Glucose (60-115) mg/dL Calcium (8.4-10.2) mg/dL Troponin I High Sens (<3.5-35.0) ng/L B-Natriuretic Peptide 80 (<100) pg/mL COVID-19 (AMALIA) Negative (Negative) COVID-19 Clin Com See Note Influenza Type A (JOHANA) Negative (Negative) Influenza Type B (JOHANA) Negative (Negative) Influenza A & B Note See Note Discharge Plan Discharge Clinical Impression: Chronic lung disease Patient Disposition: Admitted As Inpatient Prescriptions: No Action furosemide 20 mg tablet 20 mg PO DAILY Qty: 90 3RF bupropion HCl 75 mg tablet 150 mg PO BID 90 Days Qty: 360 3RF levalbuterol HCl [Xopenex] 1.25 mg/3 mL solution for nebulization 1.25 mg inhalation BID Qty: 504 3RF Daliresp 500 mcg tablet 500 mcg PO DAILY Qty: 90 3RF montelukast 10 mg tablet 10 mg PO DAILY Qty: 90 3RF arformoterol [Brovana] 15 mcg/2 mL solution for nebulization 15 mcg inhalation BID Qty: 360 3RF atorvastatin 80 mg tablet 80 mg PO DAILY Qty: 90 3RF tamsulosin [Flomax] 0.4 mg capsule 0.4 mg PO BID 90 Days Qty: 180 2RF diclofenac sodium 1 % gel 2 g topical QID PRN (Reason: pain) 30 Days Qty: 100 2RF Rx Instructions: apply to single elbow, wrist or hand; for hand includes palm/fingers/back of hand Dupixent Pen 300 mg/2 mL pen injector 300 mg subcut fluticasone propionate 50 mcg/actuation spray,suspension 1 spray intranasal DAILY Multaq 400 mg tablet 400 mg PO BID 90 Days Qty: 180 3RF Rx Instructions: must administer with a meal/food Tezspire 210 mg/1.91 mL (110 mg/mL) syringe 210 mg subcut Q4W prednisone 10 mg tablet 20 mg PO DAILY 30 Days Qty: 60 3RF prednisone 1 mg tablet 4 mg PO DAILY 30 Days Qty: 120 0RF albuterol sulfate 90 mcg/actuation HFA aerosol inhaler 2 puff inhalation QID Eliquis 5 mg tablet 5 mg PO BID 90 Days Qty: 180 3RF (DME) nebulizers Misc See Rx Instructions .Route Rx Instructions: As directed (DME) CPAP Machine/Device Device See Rx Instructions .Route Rx Instructions: As directed budesonide 0.5 mg/2 mL suspension for nebulization 0.5 mg inhalation BID Qty: 360 3RF
[2022-10-07] MEDS: methylPREDNISolone Sod Succ 125 MG/2 ML VIAL IVPUSH (20:53)
[2022-10-07] MEDS: Magnesium Sulfate/D5W 1 GM/100 ML PIGGYBACK IV (20:55)
--- NOTE | 2022-10-07 21:00 | PC.NURSE ---
pt brought straight back from triage after presenting to ER with difficulty breathing. triage Sat was 90 RA, lung sounds very wheeze, speaking in short sentenses and diaphoretic. In room pt placed on monitor - NSR in 80s. Pt on 2L O2 and satting well about 96%. PA ordered labs, meds and resp updraft treatment. IV inserted and labs drawn, pt resting with at bedside with albuterol treatment running off all air, and 2L O2. RR rate 22-25. Will ctm.
[2022-10-07 21:05] VITALS: PULSE 95; RESP 20; O2SAT 95
[2022-10-07 21:09] LABS: SLIDE REVIEW VERIFIED
[2022-10-07 21:10] LABS: COVID-19 Test Negative (Negative); IDNOW Serial# 08D9AD1C; IDNOW Serial# BCCEAD1C; Influenza A Negative (Negative); Influenza B2 Negative (Negative)
[2022-10-07 21:20] VITALS: BP 142/54; PULSE 90; RESP 16; TEMP 36.8; O2SAT 96
[2022-10-07 21:21] LABS: Anion Gap 16 (12-20); Blood Urea Nitrogen 20 mg/dL (9-16); Carbon Dioxide 24 mmol/L (22-29); Chloride 107 mmol/L (96-108); Estimated Glomerular Filt Rate 52; Glucose Random 99 mg/dL (60-115); Potassium 4.7 mmol/L (3.3-5.1); Sodium 142 mmol/L (135-145)
--- NOTE | 2022-10-07 21:21 | MHC.EDTECH ---
PATIENT EKG DONE WAS READ BY PROVIDER ,VITALS SIGN TAKEN .
[2022-10-07 21:22] LABS: Troponin-I High Sensitivity 10.1 ng/L (<3.5-35.0)
[2022-10-07 21:23] LABS: B Type Natriuretic Peptide 80 pg/mL (<100)
--- NOTE | 2022-10-07 22:52 | PC.NURSE ---
pt sats remain stable, on 2L 02 95%. Pt still significantly wheezey, and has loud productive cough which flairs up when he moves around or breaths deeply
--- NOTE | 2022-10-07 23:19 | PC.NURSE ---
assumed care of pt at 2300 - ambulatory O2 trial done. pt drops down to 87% RA with ambulation, becomes sob w/ increased work of breathing. HR up to 112. PA aware. pt back in bed resting comfortably on stretcher
--- NOTE | 2022-10-07 23:49 | PM.IMHP ---
History of Present Illness Date of Service: 10/07/22 Chief Complaint: SOB 67-year-old male with past medical history of asthma COPD, BPH, RAYMOND on CPAP, paroxysmal AFib, venous insufficiency, presents to the hospital with complaints of shortness of breath increased cough and sputum production for the past 1 week. 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 He denies any fever, no chills, no chest pain, no palpitations, no abdominal pain nausea or vomiting, no diarrhea constipation, no urinary symptoms and no lower extremity edema. On arrival to the ED patient noted to be hypoxic on ambulation dropping to 87%, he is 90% at rest on room air, patient also noted to have tachycardia and tachypnea on arrival. Labs are significant for WBC count of 20, hemoglobin of 13.4, BNP of 80, troponin of 10, COVID-19, influenza negative Chest x-ray shows no focal consolidation, patient will be admitted for further management Review of Systems Review of Systems: Yes all other systems are reviewed and are negative [facility] Medical History AC (acromioclavicular) joint arthritis Asthma-COPD overlap syndrome BPH (benign prostatic hyperplasia) Chronic rhinitis COPD (chronic obstructive pulmonary disease) Echocardiogram abnormal Edema leg Encounter for screening for lung cancer Hyperlipidemia RAYMOND on CPAP PAF (paroxysmal atrial fibrillation) (~2017) Pulmonary nodules Seasonal allergies Tubular adenoma of colon (~2005) Venous insufficiency of both lower extremities Family History Father No problems noted. Mother CAD (coronary artery disease) CHF (congestive heart failure) HTN (hypertension) Brother No problems noted. Brother No problems noted. Sister No problems noted. Sister No problems noted. Sister No problems noted. Son No problems noted. Son No problems noted. Surgical History History of appendectomy History of cataract (~2009) History of colonoscopy History of esophagogastroduodenoscopy (EGD) History of nasal septoplasty (~2008) History of repair of right rotator cuff (~2017) History of total left hip replacement (~2019) Social History Housing: House Alcohol intake: current Alcohol intake frequency: holidays/special occasions only Patient Tobacco Use Status: Former Tobacco user Tobacco use type: Cigarette Years Smoked: 40 years Smoked in Last 30 Days: No e-Cigarette/Vaping Use: Former Use Second Hand Smoke Exposure: No Use of substances other than those prescribed or required for medical reasons: No Advance Directives: No Advance Directives Information Provided: No service: No Current occupational status: retired Meds Allergies Allergy/AdvReac Type Severity Reaction Status Date / Time watermelon [WATERMELON] Allergy Severe ANAPHYLAXIS Verified 10/07/22 20:20 Iodinated Contrast Media Allergy Intermediate LIGHT Verified 10/07/22 20:20 [IV CONTRAST] HEADED AND SHORTNESS OF BREATH Active Medications: Current Medications Acetaminophen (Acetaminophen 325 Mg Tablet) 650 mg PO Q6H PRN PRN Reason: Pain, Mild (Pain Scale 1-3) Albuterol/Ipratropium (Albuterol/Iprat 2.5/0.5mg 3 Ml Ampul.Neb) 3 ml INHALE RQ4H PRN PRN Reason: Shortness of Breath/Wheezing Albuterol/Ipratropium (Albuterol/Iprat 2.5/0.5mg 3 Ml Ampul.Neb) 3 ml INHALE RQ4H WHILE AWAKE DARREN Apixaban (Apixaban 5 Mg Tablet) 5 mg PO ONCE ONE Stop: 10/07/22 23:45 Docusate Sodium (Docusate Sodium 100 Mg Capsule) 100 mg PO DAILY PRN PRN Reason: Constipation Methylprednisolone Sodium Succinate (Methylprednisolone Sod Succ 40 Mg/Ml Vial) 40 mg IVPUSH Q12H DARREN Ondansetron HCl (Ondansetron Hcl 4 Mg/2 Ml Vial) 4 mg IVPUSH Q8H PRN PRN Reason: Nausea and Vomiting Pharmacy Consult (Consult Rx Perform Med Rec) 1 each MISCELLANE ONCE PRN PRN Reason: Consult order Sodium Chloride (0.9 % Sodium Chloride Flush 3 Ml Syringe) 3 ml IVFLUSH QSHIFT [facility] Home Medications Medication Instructions Recorded Confirmed Last Taken Type fluticasone propionate 50 1 spray intranasal DAILY 03/28/20 09/07/22 Unknown History mcg/actuation nasal spray,suspension dupilumab 300 mg/2 mL subcutaneous 300 mg subcut 07/27/21 07/26/22 Unknown History pen injector (itsDapper) albuterol sulfate 90 mcg/actuation 2 puff inhalation QID 11/23/21 09/07/22 Unknown History aerosol inhaler CPAP (CPAP Machine/Device) 02/15/22 07/26/22 Unknown History nebulizers 02/15/22 07/26/22 Unknown History tezepelumab-ekko 210 mg/1.91 mL 210 mg subcut Q4W 03/22/22 09/07/22 Unknown History (110 mg/mL) subcutaneous syringe (Tezspire) Physical Exam Vital Signs and Narrative: Vital Signs: Last Vital Signs Temp 98.2 F 10/07/22 21:20 Pulse 90 10/07/22 21:20 Resp 16 10/07/22 21:20 BP 142/54 H 10/07/22 21:20 Pulse Ox 96 10/07/22 21:20 O2 Del Method Nasal Cannula 10/07/22 21:20 O2 Flow Rate 2 10/07/22 21:20 BMI result Body Mass Index 32.2 Const: General: cooperative and no acute distress Orientation/consciousness: patient oriented x3 Eyes: General: appearance normal, both eyes and all related structures Resp: Other: inspiratory wheezing Effort & Inspection: normal respiratory effort Cardio: Rate: regular rate Rhythm: regular rhythm GI: Palpation (GI): Soft to palpation Auscultation: normal bowel sounds Skin: General skin exam: no rashes or lesions noted Neuro: General: patient oriented x3 Cognition (Neuro): normal cognition Extrem: General: Yes normal to inspection and Yes no pedal edema Results Labs 10/07/22 20:45 10/07/22 20:45 Labs: Laboratory Results - last 24 hr 10/07/22 10/07/22 10/07/22 20:45 20:45 20:45 MCV 91.7 MCH 30.0 MCHC 32.7 RDW 12.7 Plt Count 431 H MPV 9.4 Immature Gran % (Auto) 0.6 H Neut % (Auto) 84.2 H Lymph % (Auto) 6.9 L [place] % (Auto) 8.1 Eos % (Auto) 0.0 Baso % (Auto) 0.2 Lymph # (Auto) 1.4 [place] # (Auto) 1.7 H Eos # (Auto) 0.0 Baso # (Auto) 0.0 Abs Immat Gran (auto) 0.13 H Absolute Neuts (auto) 17.5 H Absolute Nucleated RBC 0.000 Nucleated RBC % (auto) 0.0 Smear Tech's Comments VERIFIED Anion Gap 16 Estim Creat Clear Calc 61.0 Estimated GFR 52 Random Glucose 99 Calcium 9.0 Troponin I High Sens 10.1 B-Natriuretic Peptide COVID-19 (AMALIA) COVID-19 Clin Com Influenza Type A (JOHANA) Influenza Type B (JOHANA) Influenza A & B Note 10/07/22 10/07/22 10/07/22 20:45 20:45 20:45 MCV MCH MCHC RDW Plt Count MPV Immature Gran % (Auto) Neut % (Auto) Lymph % (Auto) [place] % (Auto) Eos % (Auto) Baso % (Auto) Lymph # (Auto) [place] # (Auto) Eos # (Auto) Baso # (Auto) Abs Immat Gran (auto) Absolute Neuts (auto) Absolute Nucleated RBC Nucleated RBC % (auto) Smear Tech's Comments Anion Gap Estim Creat Clear Calc Estimated GFR Random Glucose Calcium Troponin I High Sens B-Natriuretic Peptide 80 COVID-19 (AMALIA) Negative COVID-19 Clin Com See Note Influenza Type A (JOHANA) Negative Influenza Type B (JOHANA) Negative Influenza A & B Note See Note Imaging Radiologist's Impressions: Impressions Chest X-Ray 10/07/22 21:35 IMPRESSION: No focal consolidation. Mildly coarsened appearance of the interstitium may reflect airways disease versus developing interstitial edema in the proper clinical setting. Assessment and Plan (1) Acute exacerbation of COPD with asthma: Status: Acute (2) Leukocytosis: Status: Acute (3) Acute respiratory failure with hypoxia: Status: Acute Plan this is a 67-year-old male with past medical history of asthma COPD presents to the hospital with complaints of shortness of breath, increased cough and sputum production # acute COPD/asthma exacerbation - has wheezing, dyspnea, increased cough and sputum production - tachypneic, tachycardic, hypoxic 87% - failed outpatient p.o. steroids - will treat with Solu-Medrol IV, DuoNeb p.r.n. as well as q.i.d. scheduled - monitor respiratory status - O2 as required # acute respiratory failure with hypoxia - secondary to COPD exacerbation, no evidence of pneumonia, PE less likely - management as above # leukocytosis - likely secondary to prednisone use - no evidence of pneumonia - will obtain lactic acid, - and send blood cultures precaution, - hold off starting antibiotics at this time # tachycardia, tachypnea - likely secondary to COPD exacerbation, less likely to be secondary to sepsis acute infection, will obtain lactic acid - resolved with breathing treatments # BPH - continue tamsulosin # RAYMOND - CPAP at bedtime DVT prophylaxis: Eliquis Time Spent With Patient Time: Total time managing care of this patient today ____ minutes. Quality Stroke Does the patient have a stroke diagnosis?: No VTE Prior VTE?: No VTE Risk Level:: Medical - moderate - high VTE Device Contraindication: Treatment Not Indicated VTE Drug Contraindication: N/A - Med Ordered
[2022-10-08] VITALS (10 sets, daily range): BP systolic 128–166; BP diastolic 66–75; PULSE 88–111; RESP 17–20; TEMP 36.5–37.2; O2SAT 91–96
[2022-10-08] MEDS: Apixaban 5 MG TABLET PO ×3 (00:18→22:54)
[2022-10-08 02:29] LABS: Lactic Acid 1.2 mmol/L (0.5-2.0)
[2022-10-08 06:09] LABS: Basophils Percent Auto 0.2 % (0-2); Hemoglobin 12.8 g/dl (14.0-18.0); Imm Gran Abs Auto 0.16 X10*3/uL (0.00-0.03); Lymphocytes Absolute Auto 0.6 X10*3/uL (1.2-4.9); Lymphocytes Percent Auto 3.7 % (20-40); MANUAL DIFF FLAG SCAN; Mean Corpuscular HGB Conc 32.8 g/dl (31.0-36.0); Mean Corpuscular Hemoglobin 30.5 pg (27.0-33.0); Mean Corpuscular Volume 93.1 fL (80.0-98.0); Mean Platelet Volume 9.9 fL (9.4-12.4); Monocytes Absolute Auto 0.2 X10*3/uL (0.1-1.2); Monocytes Percent Auto 1.1 % (2-11); Neutrophils Absolute Auto 15.2 x10*3/uL (2.0-8.3); Platelet Count 403 X10*3/uL (160-400); Red Blood Count 4.19 X10*6/uL (4.60-5.80); Red Cell Distribution Width 12.6 % (11.0-16.0); SCAN SMEAR FLAG 1; White Blood Count 16.1 X10*3/uL (4.8-10.8)
[2022-10-08 06:22] LABS: Anion Gap 13 (12-20); Blood Urea Nitrogen 26 mg/dL (9-16); Calcium 8.4 mg/dL (8.4-10.2); Carbon Dioxide 22 mmol/L (22-29); Chloride 108 mmol/L (96-108); Creatinine Clr Calc Pharmacy 62.9; Estimated Glomerular Filt Rate 54; Glucose Random 203 mg/dL (60-115); Potassium 4.4 mmol/L (3.3-5.1); Sodium 139 mmol/L (135-145)
[2022-10-08 06:30] LABS: SLIDE REVIEW VERIFIED
--- NOTE | 2022-10-08 07:54 | PHA.MEDREC ---
Pharmacy Consult ? Medication Reconciliation Pharmacy has completed the medication reconciliation. PT had list on his phone
[2022-10-08] MEDS: Albuterol/Iprat 2.5/0.5MG 3 ML AMPUL.NEB INHALE ×5 (08:02→22:59)
[2022-10-08] MEDS: Dronedarone HCl 400 MG TABLET PO ×2 (08:49→22:54)
[2022-10-08] MEDS: buPROPion HCL 75 MG TABLET 150 MG PO ×2 (08:49→22:54)
[2022-10-08] MEDS: Tamsulosin HCL 0.4 MG CAPSULE PO ×2 (08:49→22:54)
[2022-10-08] MEDS: 0.9 % Sodium Chloride Flush 3 ML SYRINGE IVFLUSH ×3 (08:49→22:58)
[2022-10-08] MEDS: methylPREDNISolone Sod Succ 40 MG/ML VIAL IVPUSH ×2 (08:49→22:51)
[2022-10-08] MEDS: Furosemide 20 MG TABLET PO (08:52)
[2022-10-08] MEDS: Montelukast Sodium 10 MG TABLET PO (08:53)
--- NOTE | 2022-10-08 09:42 | MHC.CM.PN ---
PATIENT LIVES WITH FAMILY. HE USES INHALERS AND A NEBULIZER NO OTHER DME OR VNA SERVICES. NO HCP ON FILE BUT HE IS WILLING TO COMPLETE ONE HERE. COMPLETED FORM WILL BE PLACED IN CHART AND UPLOADED INTO [facility]. HE WISHES TO NAME HIS , SELENA, AND TWO SONS, CHRISTO AND NABIL PLAN WILL LIKELY BE - HOME SELF CARE TO TRANSPORT IMM 10/08 IN CHART
--- NOTE | 2022-10-08 15:02 | HO.PM.IMPN ---
Subjective Subjective Date of Service: 10/08/22 Interval History: COPD exacerbation Review of Systems Patient is still significant short of breath , tight breathing. Has some chronic cough Denies any fever or chills Physical Exam Vital Signs: Vital Signs: Last Vital Signs Temp 97.7 F 10/08/22 08:00 Pulse 111 H 10/08/22 11:45 Resp 20 10/08/22 11:45 BP 166/70 H 10/08/22 08:00 Pulse Ox 92 10/08/22 08:00 O2 Del Method Nasal Cannula 10/08/22 08:00 O2 Flow Rate 2 10/08/22 08:00 BMI result Body Mass Index 32.2 Appearance: Alert.? Oriented X3.? sob cvs: rrr, [id number]. res: air entery seems dimisnhed at bases , b/l wheezing abd: no rebound or guarding ,nt, bs present. ext pulses present , no cyanosis . neuro: axo3 , nonfocal. Objective Data Active Medications Acetaminophen (Acetaminophen 325 Mg Tablet) 650 mg PO Q6H PRN PRN Reason: Pain, Mild (Pain Scale 1-3) Albuterol/Ipratropium (Albuterol/Iprat 2.5/0.5mg 3 Ml Ampul.Neb) 3 ml INHALE RQ4H PRN PRN Reason: Shortness of Breath/Wheezing Albuterol/Ipratropium (Albuterol/Iprat 2.5/0.5mg 3 Ml Ampul.Neb) 3 ml INHALE RQ4H WHILE AWAKE [facility] Last Admin: 10/08/22 11:44 Dose: 3 ml Documented By: SHIN Apixaban (Apixaban 5 Mg Tablet) 5 mg PO BID [facility] Last Admin: 10/08/22 08:53 Dose: 5 mg Documented By: JERARDO Atorvastatin Calcium (Atorvastatin Calcium 80 Mg Tablet) 80 mg PO BEDTIME [facility] Bupropion HCl (Bupropion Hcl 75 Mg Tablet) 150 mg PO BID [facility] Last Admin: 10/08/22 08:49 Dose: 150 mg Documented By: JERARDO Docusate Sodium (Docusate Sodium 100 Mg Capsule) 100 mg PO DAILY PRN PRN Reason: Constipation Dronedarone (Dronedarone Hcl 400 Mg Tablet) 400 mg PO BID [facility] Last Admin: 05/22/23 08:49 Dose: 400 mg Documented By: JERARDO Furosemide (Furosemide 20 Mg Tablet) 20 mg PO DAILY [facility]; Protocol Last Admin: 10/08/22 08:52 Dose: 20 mg Documented By: JERARDO Methylprednisolone Sodium Succinate (Methylprednisolone Sod Succ 40 Mg/Ml Vial) 40 mg IVPUSH BID [facility] Last Admin: 10/08/22 08:49 Dose: 40 mg Documented By: JERARDO Montelukast Sodium (Montelukast Sodium 10 Mg Tablet) 10 mg PO DAILY [facility] Last Admin: 10/08/22 08:53 Dose: 10 mg Documented By: JERARDO Non-Formulary Medication (Arformoterol [Brovana]) 15 mcg INHALE BID [facility] Non-Formulary Medication (Roflumilast [Daliresp]) 500 mcg PO DAILY [facility] Ondansetron HCl (Ondansetron Hcl 4 Mg/2 Ml Vial) 4 mg IVPUSH Q8H PRN PRN Reason: Nausea and Vomiting Pharmacy Consult (Consult Rx Perform Med Rec) 1 each MISCELLANE ONCE PRN PRN Reason: Consult order Sodium Chloride (0.9 % Sodium Chloride Flush 3 Ml Syringe) 3 ml IVFLUSH QSHIFT [facility] Last Admin: 10/08/22 08:49 Dose: 3 ml Documented By: JERARDO Tamsulosin HCl (Tamsulosin Hcl 0.4 Mg Capsule) 0.4 mg PO BID [facility] Last Admin: 10/08/22 08:49 Dose: 0.4 mg Documented By: JERARDO Labs 10/08/22 05:48 10/08/22 05:48 Labs: Laboratory Results - last 24 hr 10/07/22 10/07/22 10/07/22 20:45 20:45 20:45 MCV 91.7 MCH 30.0 MCHC 32.7 RDW 12.7 Plt Count 431 H MPV 9.4 Immature Gran % (Auto) 0.6 H Neut % (Auto) 84.2 H Lymph % (Auto) 6.9 L [place] % (Auto) 8.1 Eos % (Auto) 0.0 Baso % (Auto) 0.2 Lymph # (Auto) 1.4 [place] # (Auto) 1.7 H Eos # (Auto) 0.0 Baso # (Auto) 0.0 Abs Immat Gran (auto) 0.13 H Absolute Neuts (auto) 17.5 H Absolute Nucleated RBC 0.000 Nucleated RBC % (auto) 0.0 Smear Tech's Comments VERIFIED Anion Gap 16 Estim Creat Clear Calc 61.0 Estimated GFR 52 Random Glucose 99 Lactic Acid Calcium 9.0 Troponin I High Sens 10.1 B-Natriuretic Peptide COVID-19 (AMALIA) COVID-19 Clin Com Influenza Type A (JOHANA) Influenza Type B (JOHANA) Influenza A & B Note 10/07/22 10/07/22 10/07/22 20:45 20:45 20:45 MCV MCH MCHC RDW Plt Count MPV Immature Gran % (Auto) Neut % (Auto) Lymph % (Auto) [place] % (Auto) Eos % (Auto) Baso % (Auto) Lymph # (Auto) [place] # (Auto) Eos # (Auto) Baso # (Auto) Abs Immat Gran (auto) Absolute Neuts (auto) Absolute Nucleated RBC Nucleated RBC % (auto) Smear Tech's Comments Anion Gap Estim Creat Clear Calc Estimated GFR Random Glucose Lactic Acid Calcium Troponin I High Sens B-Natriuretic Peptide 80 COVID-19 (AMALIA) Negative COVID-19 [facility] Com See Note Influenza Type A (JOHANA) Negative Influenza Type B (JOHANA) Negative Influenza A & B Note See Note 10/08/22 10/08/22 10/08/22 01:55 05:48 05:48 MCV 93.1 MCH 30.5 MCHC 32.8 RDW 12.6 Plt Count 403 H MPV 9.9 Immature Gran % (Auto) 1.0 H Neut % (Auto) 94.0 H Lymph % (Auto) 3.7 L [place] % (Auto) 1.1 L Eos % (Auto) 0.0 Baso % (Auto) 0.2 Lymph # (Auto) 0.6 L [place] # (Auto) 0.2 Eos # (Auto) 0.0 Baso # (Auto) 0.0 Abs Immat Gran (auto) 0.16 H Absolute Neuts (auto) 15.2 H Absolute Nucleated RBC 0.000 Nucleated RBC % (auto) 0.0 Smear Tech's Comments VERIFIED Anion Gap 13 Estim Creat Clear Calc 62.9 Estimated GFR 54 Random Glucose 203 H Lactic Acid 1.2 Calcium 8.4 D Troponin I High Sens B-Natriuretic Peptide COVID-19 (AMALIA) COVID-19 Clin Com Influenza Type A (JOHANA) Influenza Type B (JOHANA) Influenza A & B Note Assessment and Plan (1) Acute exacerbation of COPD with asthma: Status: Acute Plan 67-year-old male with past medical history of asthma COPD? presents to the hospital with complaints of shortness of breath, increased cough and sputum production acute COPD/asthma exacerbation-? has wheezing, dyspnea, increased cough and sputum production In ed: tachypneic, tachycardic , hypoxic 87%,failed outpatient p.o. steroids on Solu-Medrol IV, DuoNeb p.r.n. as well as q.i.d. scheduled, O2 as required Monitor sats and respiratory status closely. ? acute respiratory failure with hypoxia due to above. -? secondary to COPD exacerbation, no evidence of pneumonia -? management as above ? leukocytosis -? likely secondary to prednisone use -? no evidence of pneumonia, lactic acid normal Leukocytosis trending Monitor CBC ? tachycardia, tachypnea-? likely secondary to COPD exacerbation, less likely to be secondary to sepsis acute infection. ? BPH- continue tamsulosin ? RAYMOND-? CPAP at bedtime ?DVT prophylaxis:? Eliquis Inpatient need: COPD exacerbation need IV steroids,, nebs, oxygen, monitor respiratory status closely. Time Spent With Patient Time: Total time managing care of this patient today ____ minutes. Quality Stroke Does the patient have a stroke diagnosis?: No VTE Prior VTE?: No VTE Risk Level:: Medical - moderate - high VTE Device Contraindication: Treatment Not Indicated VTE Drug Contraindication: N/A - Med Ordered
[2022-10-08] MEDS: Atorvastatin Calcium 80 MG TABLET PO (22:54)
[2022-10-09 04:00] VITALS: BP 131/64; PULSE 77; RESP 19; TEMP 36.6; O2SAT 93
[2022-10-09 06:12] LABS: Hematocrit 39.4 % (42.0-52.0); Hemoglobin 12.6 g/dl (14.0-18.0); Mean Corpuscular Hemoglobin 29.6 pg (27.0-33.0); Mean Corpuscular Volume 92.5 fL (80.0-98.0); Mean Platelet Volume 9.6 fL (9.4-12.4); Platelet Count 430 X10*3/uL (160-400); Red Blood Count 4.26 X10*6/uL (4.60-5.80); Red Cell Distribution Width 12.6 % (11.0-16.0); White Blood Count 22.2 X10*3/uL (4.8-10.8)
[2022-10-09 06:27] LABS: Anion Gap 14 (12-20); Blood Urea Nitrogen 39 mg/dL (9-16); Calcium 8.6 mg/dL (8.4-10.2); Carbon Dioxide 22 mmol/L (22-29); Chloride 105 mmol/L (96-108); Estimated Glomerular Filt Rate 52; Glucose Random 144 mg/dL (60-115); Potassium 4.3 mmol/L (3.3-5.1); Sodium 137 mmol/L (135-145)
[2022-10-09 07:35] VITALS: BP 135/65; PULSE 95; RESP 20; TEMP 37.2; O2SAT 96
[2022-10-09] MEDS: Albuterol/Iprat 2.5/0.5MG 3 ML AMPUL.NEB INHALE ×2 (07:43→11:41)
[2022-10-09 07:45] VITALS: PULSE 81; RESP 20; O2SAT 97
[2022-10-09] MEDS: Dronedarone HCl 400 MG TABLET PO (07:55)
[2022-10-09] MEDS: Montelukast Sodium 10 MG TABLET PO (07:55)
[2022-10-09] MEDS: Furosemide 20 MG TABLET PO (07:56)
[2022-10-09] MEDS: Apixaban 5 MG TABLET PO (07:56)
[2022-10-09] MEDS: Tamsulosin HCL 0.4 MG CAPSULE PO (07:56)
[2022-10-09] MEDS: buPROPion HCL 75 MG TABLET 150 MG PO (07:56)
[2022-10-09] MEDS: 0.9 % Sodium Chloride Flush 3 ML SYRINGE IVFLUSH (07:57)
[2022-10-09] MEDS: predniSONE 20 MG TABLET 40 MG PO (09:04)
--- NOTE | 2022-10-09 10:40 | P.DS_ITS ---
DS: Providers Provider Date of Service: 10/09/22 Date of admission: 10/07/22 23:47 Primary care physician: Guilherme Mcallister MD DS: Diagnosis Discharge Diagnosis (1) Acute exacerbation of COPD with asthma: Status: Acute DS: Summary Hospital Course Hospital Course: Chief Complaint: SOB ?67-year-old male with past medical history of? asthma COPD, BPH, RAYMOND on CPAP, paroxysmal AFib, venous insufficiency, presents to the hospital with complaints of shortness of breath increased cough and sputum production for the past 1 week.? ? Patient was started on prednisone several days ago by his leader assembler, with no relief of his symptoms, symptoms continued to? worsen? therefore patient decided to come to the hospital.? He denies any fever, no chills, no chest pain, no palpitations, no abdominal pain nausea or vomiting, no diarrhea constipation, no urinary symptoms and no lower extremity edema.? On arrival to the ED patient noted to be hypoxic on ambulation dropping to 87%, he is 90% at rest on room air, patient also noted to have tachycardia and tachypnea on arrival. Labs are significant for WBC count of 20, hemoglobin of 13.4, BNP of 80, troponin of 10, COVID-19, influenza negative Chest x-ray shows no focal consolidation, ?patient will be admitted for further management Hospital coruse: Patient with history of advanced COPD and required frequent prednisone use on outpatient basis. Presented yet again with another episode of acute exacerbation of COPD and noted to have elevated WBC no fever and checks x- ray showed no acute pulmonary infection. Patient was admitted treated with IV corticosteroid with significant improvement presently with some cough no shortness of breath no need for oxygen and at this point will be transitioned to oral prednisone with tapering and to follow up with his leader assembler on outpatient basis. Elevated WBC is likely related to frequent steroid use and should be monitored upon completion of the prednisone Time Spent with Patient Time attestation: Total time managing care of this patient today ____ minutes. Discharge coordination time: Greater than 30 minutes Quality: Safe Use of Opioids Does Pt have an Active Cancer Diagnosis on the Problem List?: No Quality: Stroke Does the patient have a stroke diagnosis?: No Physical Exam Vital Signs: Vital Signs: Last Vital Signs Temp 98.9 F 10/09/22 07:35 Pulse 81 10/09/22 07:45 Resp 20 10/09/22 07:45 BP 135/65 10/09/22 07:35 Pulse Ox 96 10/09/22 07:35 O2 Del Method Nasal Cannula 10/09/22 07:35 O2 Flow Rate 2 10/09/22 07:35 BMI result Body Mass Index 32.2 Const: Other: General: AO X 3, no acute distress Resp: CTA bilateral, no wheezes, no accessory muscle use CVS: S1,S2,RRR GI: +BS, NT, no distention Skin: No rash Neuro: motor grossly intact Psych: appropriate affect DS: Data Data Completed and Pending Labs on day of discharge: Laboratory Results - last 24 hr 10/09/22 10/09/22 05:46 05:46 WBC 22.2 H RBC 4.26 L Hgb 12.6 L Hct 39.4 L MCV 92.5 MCH 29.6 MCHC 32.0 RDW 12.6 Plt Count 430 H MPV 9.6 Absolute Nucleated RBC 0.000 Nucleated RBC % (auto) 0.0 Sodium 137 Potassium 4.3 Chloride 105 Carbon Dioxide 22 Anion Gap 14 BUN 39 H Creatinine 1.36 Estim Creat Clear Calc 61.0 Estimated GFR 52 Random Glucose 144 H Calcium 8.6 Discharge Plan Discharge Anticipated Discharge Date/Time: 10/09/22 10:45 Patient Disposition: Home, Self-Care Discharge Diagnosis: Acute respiratory failure with hypoxia, COPD exacerbation Referrals: Guilherme Mcallister MD [Primary Care Provider] - 1 Week Discharge Medications: New doxycycline monohydrate 100 mg Capsule 100 mg PO Q12H Qty: 9 0RF prednisone 10 mg tablets,dose pack See Taper PO DIRECTED Qty: 21 0RF Taper: Prednisone 40 mg daily for 3 Days and 0 Hour 30 mg daily for 3 Days and 0 Hour 20 mg daily for 3 Days and 0 Hour 10 mg daily for 3 Days and 0 Hour Continued furosemide 20 mg tablet 20 mg PO DAILY Qty: 90 3RF bupropion HCl 75 mg tablet 150 mg PO BID 90 Days Qty: 360 3RF levalbuterol HCl [Xopenex] 1.25 mg/3 mL solution for nebulization 1.25 mg inhalation BID Qty: 504 3RF Daliresp 500 mcg tablet 500 mcg PO DAILY Qty: 90 3RF montelukast 10 mg tablet 10 mg PO DAILY Qty: 90 3RF arformoterol [Brovana] 15 mcg/2 mL solution for nebulization 15 mcg inhalation BID Qty: 360 3RF atorvastatin 80 mg tablet 80 mg PO DAILY Qty: 90 3RF fluticasone propionate [Flovent HFA] 220 mcg/actuation Hfa Aerosol Inhaler 1 puff INHALATION Q12H tamsulosin [Flomax] 0.4 mg capsule 0.4 mg PO BID 90 Days Qty: 180 2RF Multaq 400 mg tablet 400 mg PO BID 90 Days Qty: 180 3RF Rx Instructions: must administer with a meal/food Tezspire 210 mg/1.91 mL (110 mg/mL) syringe 210 mg subcut Q4W albuterol sulfate 90 mcg/actuation HFA aerosol inhaler 2 puff inhalation QID Eliquis 5 mg tablet 5 mg PO BID 90 Days Qty: 180 3RF (DME) nebulizers Misc See Rx Instructions .Route Rx Instructions: As directed (DME) CPAP Machine/Device Device See Rx Instructions .Route Rx Instructions: As directed budesonide 0.5 mg/2 mL suspension for nebulization 0.5 mg inhalation BID Qty: 360 3RF No Action levalbuterol HCl 1.25 mg/3 mL solution for nebulization 1.25 mg inhalation BID 90 Days Qty: 540 3RF Discharge Orders: Discharge Order (Routine); Ordered 10/09/22 Ordered By: Yobani Ritter Diet: Advance to usual diet Activity on Discharge: No Running or jogging Stand Alone Forms: Patient Portal Discharge page Care Plan Goals: Full recovery from COPD exacerbation bronchitis Health Concerns: COPD Bronchitis Plan of Treatment: Take doxycycline as directed for bronchitis Take prednisone as directed for COPD exacerbation along with your usual inhalers, Take Robitussin for cough Follow-up with Dr. Head [facility] Follow-up with your primary care provider within a week, call for appointment Assessment: as above Discharge Date/Time: 10/09/22 15:06
[2022-10-09] MEDS: Doxycycline Monohydrate 100 MG CAPSULE PO (10:59)
[2022-10-09 11:38] VITALS: O2SAT 90; O2SAT 94
[2022-10-09 11:42] VITALS: PULSE 89; RESP 20; O2SAT 93
[2022-10-09] MEDS: guaiFEN/Codeine SF 200/20/10ML 10 ML LIQUID 5 ML PO (12:58)
--- NOTE | 2022-10-09 14:51 | MHC.CM.PN ---
PATIENT IS DC HOME - SELF CARE RN AWARE OF PLAN
== END 2022-10-09 15:06 | disposition home or self-care (01) | DRG 190 ==
LOC: HO.ED 23:30 → HO.EDOVER 23:54 → HO.S3 10-08 07:48
PROVIDERS: Internal Medicine; Physician Assistant; Admitting Provider Internal Medicine; Emergency Provider Internal Medicine; PCP Family Medicine; Visit Provider Internal Medicine
DX: J44.1 Chronic obstructive pulmonary disease with (acute) exacerbation (principal); J96.01 Acute respiratory failure with hypoxia; J45.901 Unspecified asthma with (acute) exacerbation; G47.33 Obstructive sleep apnea (adult) (pediatric); I48.0 Paroxysmal atrial fibrillation; I87.2 Venous insufficiency (chronic) (peripheral); N40.0 Benign prostatic hyperplasia without lower urinary tract symptoms; Z20.822 Contact with and (suspected) exposure to COVID-19; Z87.891 Personal history of nicotine dependence; Z91.041 Radiographic dye allergy status; Z79.01 Long term (current) use of anticoagulants; Z79.51 Long term (current) use of inhaled steroids; Z79.899 Other long term (current) drug therapy
CPT/HCPCS: 36415; 71045; 80048; 83605; 83880; 84484; 85025; 85027; 87502; 87635; 93005; 94640; 99285; J2920; J2930; J3475

== ENCOUNTER 2022-10-12 17:04 | Inpatient (IN) | payer MEDICARE, OTHER, SELFPAY ==
--- NOTE | ~2022-10-12 | XR_ITS ---
EXAMINATION: XR CHEST CLINICAL INFORMATION: Chest pain. Shortness of breath. COMPARISON: Chest x-ray 10/07/2022, May 2020 TECHNIQUE: 2 views of the chest were obtained. FINDINGS: Subtle hazy patchy multifocal airspace opacities in the mid and lower lungs bilaterally. These lung opacities have improved slightly since the exam of 10/07/2022. No significant pleural effusion. No pulmonary vascular congestion. Heart size is normal. Cardiac mediastinal contours are normal. XR/XR chest 2V IMPRESSION: Subtle hazy patchy multifocal airspace opacities in the mid and lower lungs bilaterally. CT chest may be helpful for further assessment.
--- NOTE | ~2022-10-12 | CT_ITS ---
EXAMINATION: CT CHEST WITH CONTRAST CLINICAL INFORMATION: Pneumonia. COMPARISON: No similar priors. TECHNIQUE: Multidetector volumetric CT imaging of the chest was obtained after the administration of 50 mL of Omnipaque 350 intravenous contrast without immediate adverse reactions. Axial MIP volume rendering provided. Sagittal and coronal reformatted images were obtained. This CT examination was performed using dose optimization techniques as appropriate, variously including the following: *Automated exposure control *Adjustment of mA and/or kV according to patient size (this includes techniques or standardized protocols for targeted exams where dose is matched to indication/reason for exam; i.e. extremities or head) *Use of iterative reconstruction technique DLP: 308 mGy-cm FINDINGS: LUNGS: Numerous bilateral nodular-like and patchy airspace opacities with many of the nodules demonstrating a tree-in-bud distribution. Background of emphysematous changes. Central airways are patent. MEDIASTINUM: Normal heart size. No pericardial effusion. Coronary artery calcifications are visualized. Normal appearance of the thyroid gland. Mediastinal and hilar lymphadenopathy, for instance a 1.2 cm short axis nodule anterior to the right mainstem bronchus (3:26). PLEURA: No pleural effusion or pneumothorax. AXILLA: No lymphadenopathy. Superficial skin based water density cyst measuring 1.6 cm (5:1) in the mid upper back, likely representing a sebaceous cyst. UPPER ABDOMEN: Cholelithiasis without significant associated inflammatory changes in the included portions of the gallbladder to suspect acute cholecystitis. Punctate calcified granuloma in the right hepatic lobe (3:54). OSSEOUS STRUCTURES: No acute or aggressive appearing osseous abnormalities. Degenerative changes of the spine. CT/CT chest w IV con IMPRESSION: 1. Numerous bilateral nodular and patchy airspace opacities, many with a tree-in-bud distribution. Multiplicity and distribution favors an infectious/inflammatory process such as an atypical pneumonia. However, a short-term follow-up diagnostic chest CT is highly recommended to ensure adequate resolution and rule out underlying malignancy in this patient with high risk factors as evident by a background of emphysematous changes. 2. Mediastinal and hilar lymphadenopathy, likely reactive. This could be follow-up with the above recommended CT. 3. Cholelithiasis but no evidence of acute cholecystitis in the included portions of the gallbladder. If clinically indicated, correlation with a right upper quadrant ultrasound could be obtained.
[2022-10-12 17:11] VITALS: BP 105/65; PULSE 97; RESP 17; TEMP 35.9; O2SAT 93; BMI 31.7
--- NOTE | 2022-10-12 17:11 | ED.GENADULT ---
HPI - General Adult General Chief complaint: Dyspnea Stated complaint: Sob Time Seen by Provider: 10/12/22 18:11 Related Data Home Medications Medication Instructions Recorded Confirmed albuterol sulfate 90 mcg/actuation 2 puff inhalation QID 11/23/21 10/08/22 aerosol inhaler CPAP (CPAP Machine/Device) 02/15/22 07/26/22 nebulizers 02/15/22 07/26/22 tezepelumab-ekko 210 mg/1.91 mL 210 mg subcut Q4W 03/22/22 10/08/22 (110 mg/mL) subcutaneous syringe (Tezspire) fluticasone propionate 220 1 puff inhalation Q12H 10/08/22 10/08/22 mcg/actuation HFA aerosol inhaler (Flovent HFA) Previous Rx's Medication Instructions Recorded furosemide 20 mg tablet 20 mg PO DAILY #90 tabs 01/24/21 apixaban 5 mg tablet (Eliquis) 5 mg PO BID 90 days #180 tabs 11/23/21 bupropion HCl 75 mg tablet 150 mg PO BID 90 days #360 tabs 01/23/22 tamsulosin 0.4 mg capsule (Flomax) 0.4 mg PO BID 90 days #180 caps 04/05/22 budesonide 0.5 mg/2 mL suspension 0.5 mg (2 mL) inhalation BID #360 05/24/22 for nebulization mL dronedarone 400 mg tablet (Multaq) 400 mg PO BID 90 days #180 tabs 06/07/22 levalbuterol HCl 1.25 mg/3 mL 1.25 mg (3 mL) inhalation BID #504 06/11/22 solution for nebulization (Xopenex) mL roflumilast 500 mcg tablet 500 mcg PO DAILY #90 tabs 07/06/22 (Daliresp) montelukast 10 mg tablet 10 mg PO DAILY #90 tabs 07/23/22 arformoterol 15 mcg/2 mL solution 15 mcg (2 mL) inhalation BID #360 09/17/22 for nebulization (Brovana) mL atorvastatin 80 mg tablet 80 mg PO DAILY #90 tabs 10/03/22 doxycycline monohydrate 100 mg 100 mg PO Q12H #9 caps 10/09/22 capsule prednisone 10 mg tablets in a dose See Taper PO DIRECTED #21 ea 10/09/22 pack levalbuterol HCl 1.25 mg/3 mL 1.25 mg (3 mL) inhalation BID 90 10/11/22 solution for nebulization days #540 mL Allergies Allergy/AdvReac Type Severity Reaction Status Date / Time watermelon [WATERMELON] Allergy Severe ANAPHYLAXIS Verified 10/07/22 20:20 Iodinated Contrast Media Allergy Intermediate LIGHT Verified 10/07/22 20:20 [IV CONTRAST] HEADED AND SHORTNESS OF BREATH PMFSH Past Medical History Medical History AC (acromioclavicular) joint arthritis Asthma-COPD overlap syndrome BPH (benign prostatic hyperplasia) Chronic rhinitis COPD (chronic obstructive pulmonary disease) Echocardiogram abnormal Edema leg Encounter for screening for lung cancer Hyperlipidemia RAYMOND on CPAP PAF (paroxysmal atrial fibrillation) (~2017) Pulmonary nodules Seasonal allergies Tubular adenoma of colon (~2005) Venous insufficiency of both lower extremities Surgical History History of appendectomy History of cataract (~2009) History of colonoscopy History of esophagogastroduodenoscopy (EGD) History of nasal septoplasty (~2008) History of repair of right rotator cuff (~2017) History of total left hip replacement (~2019) Family History Family History Father No problems noted. Mother CAD (coronary artery disease) CHF (congestive heart failure) HTN (hypertension) Brother No problems noted. Brother No problems noted. Sister No problems noted. Sister No problems noted. Sister No problems noted. Son No problems noted. Son No problems noted. Social History Social History Household Members: Family Housing: House Do you presently have visiting nurse or other home services: No Alcohol intake: current Alcohol intake frequency: holidays/special occasions only Patient Tobacco Use Status: Former Tobacco user Tobacco use type: Cigarette Years Smoked: 40 years e-Cigarette/Vaping Use: Former Use Second Hand Smoke Exposure: No Advance Directives: No Advance Directives Information Provided: Yes service: Yes Current occupational status: retired Physical Exam ED Vital Signs: Vital Signs - 24 hr 10/12/22 17:11 Temperature 96.7 F L Pulse Rate 97 Respiratory Rate 17 Blood Pressure 105/65 Pulse Oximetry 93 Oxygen Delivery Method Room Air BMI result Body Mass Index 31.7 Course Course Course Narrative: RME performed by Ashley Bean PA-C. Patient is a 67 year old assigned male at presenting to the emergency department with shortness of breath. Labs, imaging, and swabs ordered. Patient placed back in the waiting room pending room availability and results. Medications Administered Discontinued Medications Generic Name Dose Route Start Last Admin Trade Name Freq PRN Reason Stop Dose Admin Methylprednisolone Sodium Succinate 125 mg 10/12/22 18:24 10/12/22 18:56 Methylprednisolone Sod Succ 125 Mg/2 Ml Vial IVPUSH 10/12/22 18:25 125 mg ONCE ONE Administration Medical Decision Making Lab Data 10/12/22 17:46 10/12/22 17:46 Labs: Lab Results 10/12/22 10/12/22 10/12/22 Range/Units 17:46 17:46 17:46 WBC 15.7 H (4.8-10.8) X10*3/uL RBC 4.62 (4.60-5.80) X10*6/uL Hgb 14.2 (14.0-18.0) g/dl Hct 42.5 (42.0-52.0) % MCV 92.0 (80.0-98.0) fL MCH 30.7 (27.0-33.0) pg MCHC 33.4 (31.0-36.0) g/dl RDW 12.5 (11.0-16.0) % Plt Count 479 H (160-400) X10*3/uL MPV 9.6 (9.4-12.4) fL Immature Gran % (Auto) 1.9 H (0.0-0.4) % Neut % (Auto) 73.3 H (45-73) % Lymph % (Auto) 15.1 L (20-40) % [place] % (Auto) 8.0 (2-11) % Eos % (Auto) 1.4 (0-4) % Baso % (Auto) 0.3 (0-2) % Lymph # (Auto) 2.4 (1.2-4.9) X10*3/uL [place]eller # (Auto) 1.3 H (0.1-1.2) X10*3/uL Eos # (Auto) 0.2 (0.0-0.4) X10*3/uL Baso # (Auto) 0.0 (0.0-0.2) X10*3/uL Abs Immat Gran (auto) 0.30 H (0.00-0.03) X10*3/uL Absolute Neuts (auto) 11.5 H (2.0-8.3) x10*3/uL Absolute Nucleated RBC 0.000 (0.0-0.012) X10*3/uL Nucleated RBC % (auto) 0.0 (0.0-0.2) /100WBC PT (10.0-13.1) SEC INR (0.9-1.1) APTT (26.0-36.4) SEC VBG pH (7.32-7.43) VBG pCO2 mmHg VBG pO2 mmHg VBG HCO3 (22-26) mmol/L VBG O2 Saturation % VBG Base Excess mmol/L Sodium 139 (135-145) mmol/L Potassium 4.5 (3.3-5.1) mmol/L Chloride 105 (96-108) mmol/L Carbon Dioxide 28 (22-29) mmol/L Anion Gap 11 L (12-20) BUN 23 H (9-16) mg/dL Creatinine 1.13 (0.5-1.4) mg/dL Estim Creat Clear Calc 72.9 Estimated GFR > 60 Random Glucose 104 (60-115) mg/dL Calcium 8.9 (8.4-10.2) mg/dL Phosphorus (2.7-4.5) mg/dL Magnesium 2.1 (1.6-2.6) mg/dL Total Bilirubin 0.4 (0.0-1.0) mg/dL AST 35 (5-37) U/L ALT 79 H (0-40) U/L Alkaline Phosphatase 134 H (39-117) U/L Troponin I High Sens 6.3 (<3.5-35.0) ng/L Total Protein 6.3 L (6.5-8.0) g/dL Albumin 3.1 L (3.5-5.0) g/dL COVID-19 (AMALIA) (Negative) COVID-19 Clin Com 10/12/22 10/12/22 10/12/22 Range/Units 17:46 17:46 18:45 WBC (4.8-10.8) X10*3/uL RBC (4.60-5.80) X10*6/uL Hgb (14.0-18.0) g/dl Hct (42.0-52.0) % MCV (80.0-98.0) fL MCH (27.0-33.0) pg MCHC (31.0-36.0) g/dl RDW (11.0-16.0) % Plt Count (160-400) X10*3/uL MPV (9.4-12.4) fL Immature Gran % (Auto) (0.0-0.4) % Neut % (Auto) (45-73) % Lymph % (Auto) (20-40) % [place] % (Auto) (2-11) % Eos % (Auto) (0-4) % Baso % (Auto) (0-2) % Lymph # (Auto) (1.2-4.9) X10*3/uL [place]eller # (Auto) (0.1-1.2) X10*3/uL Eos # (Auto) (0.0-0.4) X10*3/uL Baso # (Auto) (0.0-0.2) X10*3/uL Abs Immat Gran (auto) (0.00-0.03) X10*3/uL Absolute Neuts (auto) (2.0-8.3) x10*3/uL Absolute Nucleated RBC (0.0-0.012) X10*3/uL Nucleated RBC % (auto) (0.0-0.2) /100WBC PT 12.8 (10.0-13.1) SEC INR 1.1 (0.9-1.1) APTT 30.4 (26.0-36.4) SEC VBG pH (7.32-7.43) VBG pCO2 mmHg VBG pO2 mmHg VBG HCO3 (22-26) mmol/L VBG O2 Saturation % VBG Base Excess mmol/L Sodium (135-145) mmol/L Potassium (3.3-5.1) mmol/L Chloride (96-108) mmol/L Carbon Dioxide (22-29) mmol/L Anion Gap (12-20) BUN (9-16) mg/dL Creatinine (0.5-1.4) mg/dL Estim Creat Clear Calc Estimated GFR Random Glucose (60-115) mg/dL Calcium (8.4-10.2) mg/dL Phosphorus 3.4 (2.7-4.5) mg/dL Magnesium (1.6-2.6) mg/dL Total Bilirubin (0.0-1.0) mg/dL AST (5-37) U/L ALT (0-40) U/L Alkaline Phosphatase (39-117) U/L Troponin I High Sens (<3.5-35.0) ng/L Total Protein (6.5-8.0) g/dL Albumin (3.5-5.0) g/dL COVID-19 (AMALIA) Negative (Negative) COVID-19 Clin Com See Note 10/12/22 Range/Units 18:47 WBC (4.8-10.8) X10*3/uL RBC (4.60-5.80) X10*6/uL Hgb (14.0-18.0) g/dl Hct (42.0-52.0) % MCV (80.0-98.0) fL MCH (27.0-33.0) pg MCHC (31.0-36.0) g/dl RDW (11.0-16.0) % Plt Count (160-400) X10*3/uL MPV (9.4-12.4) fL Immature Gran % (Auto) (0.0-0.4) % Neut % (Auto) (45-73) % Lymph % (Auto) (20-40) % Teller % (Auto) (2-11) % Eos % (Auto) (0-4) % Baso % (Auto) (0-2) % Lymph # (Auto) (1.2-4.9) X10*3/uL Teller # (Auto) (0.1-1.2) X10*3/uL Eos # (Auto) (0.0-0.4) X10*3/uL Baso # (Auto) (0.0-0.2) X10*3/uL Abs Immat Gran (auto) (0.00-0.03) X10*3/uL Absolute Neuts (auto) (2.0-8.3) x10*3/uL Absolute Nucleated RBC (0.0-0.012) X10*3/uL Nucleated RBC % (auto) (0.0-0.2) /100WBC PT (10.0-13.1) SEC INR (0.9-1.1) APTT (26.0-36.4) SEC VBG pH 7.41 (7.32-7.43) VBG pCO2 43 mmHg VBG pO2 55 mmHg VBG HCO3 27 H (22-26) mmol/L VBG O2 Saturation 85.0 % VBG Base Excess 3.0 mmol/L Sodium (135-145) mmol/L Potassium (3.3-5.1) mmol/L Chloride (96-108) mmol/L Carbon Dioxide (22-29) mmol/L Anion Gap (12-20) BUN (9-16) mg/dL Creatinine (0.5-1.4) mg/dL Estim Creat Clear Calc Estimated GFR Random Glucose (60-115) mg/dL Calcium (8.4-10.2) mg/dL Phosphorus (2.7-4.5) mg/dL Magnesium (1.6-2.6) mg/dL Total Bilirubin (0.0-1.0) mg/dL AST (5-37) U/L ALT (0-40) U/L Alkaline Phosphatase (39-117) U/L Troponin I High Sens (<3.5-35.0) ng/L Total Protein (6.5-8.0) g/dL Albumin (3.5-5.0) g/dL COVID-19 (AMALIA) (Negative) COVID-19 Clin Com Discharge Plan Discharge Clinical Impression: Respiratory failure Patient Disposition: Admitted As Inpatient
--- NOTE | 2022-10-12 17:13 | ECG_ITS ---
Test Reason : SOB Blood Pressure : / mmHG Vent. Rate : 088 BPM Atrial Rate : 088 BPM P-R Int : 166 ms QRS Dur : 086 ms QT Int : 352 ms P-R-T Axes : 079 043 071 degrees QTc Int : 425 ms Normal sinus rhythm Normal ECG When compared with ECG of 07-OCT-2022 21:14, No significant change was found Referred By: Ashley Bean Electronically Signed By:MAURA BIRMINGHAM
[2022-10-12 17:55] LABS: MANUAL DIFF FLAG NO
[2022-10-12 18:06] LABS: INTERNATIONAL NORM RATIO 1.1 (0.9-1.1); Prothrombin Time 12.8 SEC (10.0-13.1)
[2022-10-12 18:08] LABS: Partial Thromboplastin Time 30.4 SEC (26.0-36.4)
[2022-10-12 18:11] LABS: COVID-19 Test Negative (Negative); IDNOW Serial# 08D9AD1C
[2022-10-12 18:17] LABS: Alanine Aminotransferase 79 U/L (0-40); Albumin Level 3.1 g/dL (3.5-5.0); Alkaline Phosphatase 134 U/L (39-117); Anion Gap 11 (12-20); Aspartate Amino Transferase 35 U/L (5-37); Bilirubin Total 0.4 mg/dL (0.0-1.0); Blood Urea Nitrogen 23 mg/dL (9-16); Calcium 8.9 mg/dL (8.4-10.2); Carbon Dioxide 28 mmol/L (22-29); Chloride 105 mmol/L (96-108); Creatinine Clr Calc Pharmacy 72.9; Estimated Glomerular Filt Rate > 60; Glucose Random 104 mg/dL (60-115); Magnesium 2.1 mg/dL (1.6-2.6); Potassium 4.5 mmol/L (3.3-5.1); Sodium 139 mmol/L (135-145); Total Protein 6.3 g/dL (6.5-8.0)
[2022-10-12 18:25] LABS: Troponin-I High Sensitivity 6.3 ng/L (<3.5-35.0)
[2022-10-12 18:35] LABS: Basophils Percent Auto 0.3 % (0-2); Eosinophils Absolute Auto 0.2 X10*3/uL (0.0-0.4); Eosinophils Percent Auto 1.4 % (0-4); Hematocrit 42.5 % (42.0-52.0); Hemoglobin 14.2 g/dl (14.0-18.0); Imm Gran Pct Auto 1.9 % (0.0-0.4); Lymphocytes Absolute Auto 2.4 X10*3/uL (1.2-4.9); Lymphocytes Percent Auto 15.1 % (20-40); Mean Corpuscular HGB Conc 33.4 g/dl (31.0-36.0); Mean Corpuscular Hemoglobin 30.7 pg (27.0-33.0); Mean Platelet Volume 9.6 fL (9.4-12.4); Monocytes Absolute Auto 1.3 X10*3/uL (0.1-1.2); Neutrophils Absolute Auto 11.5 x10*3/uL (2.0-8.3); Neutrophils Percent Auto 73.3 % (45-73); Platelet Count 479 X10*3/uL (160-400); Red Blood Count 4.62 X10*6/uL (4.60-5.80); Red Cell Distribution Width 12.5 % (11.0-16.0); White Blood Count 15.7 X10*3/uL (4.8-10.8)
--- NOTE | 2022-10-12 18:39 | ED_ITS ---
HPI - SOB/Dyspnea General Chief Complaint: Dyspnea Stated Complaint: Sob Time Seen by Provider: 10/12/22 18:11 Source: patient and family Mode of arrival: ambulatory Limitations: no limitations History of Present Illness HPI Narrative: Patient is 67-year-old male with a significant history of COPD followed by Dr. Omar alvarez pulmonology who was previously discharged from [facility] 3 days ago after being admitted for a COPD exacerbation. He was discharged on doxycycline and a prednisone taper which he states that he has been taking as prescribed. He notes that he has been feeling unwell since being discharged and his oxygen has been fluctuating from the 80s to low 90s. He states today that he was sitting in bed when each became acutely short of breath and had increased work of breathing. His oxygen saturation at that time was 84%. His then drove him to the emergency department. Here he appears acutely dyspneic continued to feel short of breath. He denies fevers at home along with chest pain, abdominal pain, nausea vomiting, changes in bowel or bladder habits, or other systemic complaints. He has no known sick contacts. Related Data Home Medications Medication Instructions Recorded Confirmed albuterol sulfate 90 mcg/actuation 2 puff inhalation QID 11/23/21 10/08/22 aerosol inhaler CPAP (CPAP Machine/Device) 02/15/22 07/26/22 nebulizers 02/15/22 07/26/22 tezepelumab-ekko 210 mg/1.91 mL 210 mg subcut Q4W 03/22/22 10/08/22 (110 mg/mL) subcutaneous syringe (Tezspire) fluticasone propionate 220 1 puff inhalation Q12H 10/08/22 10/08/22 mcg/actuation HFA aerosol inhaler (Flovent HFA) Previous Rx's Medication Instructions Recorded furosemide 20 mg tablet 20 mg PO DAILY #90 tabs 01/24/21 apixaban 5 mg tablet (Eliquis) 5 mg PO BID 90 days #180 tabs 11/23/21 bupropion HCl 75 mg tablet 150 mg PO BID 90 days #360 tabs 01/23/22 tamsulosin 0.4 mg capsule (Flomax) 0.4 mg PO BID 90 days #180 caps 04/05/22 budesonide 0.5 mg/2 mL suspension 0.5 mg (2 mL) inhalation BID #360 01/05/23 for nebulization mL dronedarone 400 mg tablet (Multaq) 400 mg PO BID 90 days #180 tabs 06/07/22 levalbuterol HCl 1.25 mg/3 mL 1.25 mg (3 mL) inhalation BID #504 06/11/22 solution for nebulization (Xopenex) mL roflumilast 500 mcg tablet 500 mcg PO DAILY #90 tabs 07/06/22 (Daliresp) montelukast 10 mg tablet 10 mg PO DAILY #90 tabs 07/23/22 arformoterol 15 mcg/2 mL solution 15 mcg (2 mL) inhalation BID #360 09/17/22 for nebulization (Brovana) mL atorvastatin 80 mg tablet 80 mg PO DAILY #90 tabs 10/03/22 doxycycline monohydrate 100 mg 100 mg PO Q12H #9 caps 10/09/22 capsule prednisone 10 mg tablets in a dose See Taper PO DIRECTED #21 ea 10/09/22 pack levalbuterol HCl 1.25 mg/3 mL 1.25 mg (3 mL) inhalation BID 90 10/11/22 solution for nebulization days #540 mL Allergies Allergy/AdvReac Type Severity Reaction Status Date / Time watermelon [WATERMELON] Allergy Severe ANAPHYLAXIS Verified 10/07/22 20:20 Iodinated Contrast Media Allergy Intermediate LIGHT Verified 10/07/22 20:20 [IV CONTRAST] HEADED AND SHORTNESS OF BREATH Review of Systems Review of Systems: Yes all other systems are reviewed and are negative PMFSH Past Medical History Medical History AC (acromioclavicular) joint arthritis Asthma-COPD overlap syndrome BPH (benign prostatic hyperplasia) Chronic rhinitis COPD (chronic obstructive pulmonary disease) Echocardiogram abnormal Edema leg Encounter for screening for lung cancer Hyperlipidemia RAYMOND on CPAP PAF (paroxysmal atrial fibrillation) (~2017) Pulmonary nodules Seasonal allergies Tubular adenoma of colon (~2005) Venous insufficiency of both lower extremities Surgical History History of appendectomy History of cataract (~2009) History of colonoscopy History of esophagogastroduodenoscopy (EGD) History of nasal septoplasty (~2008) History of repair of right rotator cuff (~2018) History of total left hip replacement (~2019) Family History Family History Father No problems noted. Mother CAD (coronary artery disease) CHF (congestive heart failure) HTN (hypertension) Brother No problems noted. Brother No problems noted. Sister No problems noted. Sister No problems noted. Sister No problems noted. Son No problems noted. Son No problems noted. Social History Social History Household Members: Family Housing: House Do you presently have visiting nurse or other home services: No Alcohol intake: current Alcohol intake frequency: holidays/special occasions only Patient Tobacco Use Status: Former Tobacco user Tobacco use type: Cigarette Years Smoked: 40 years e-Cigarette/Vaping Use: Former Use Second Hand Smoke Exposure: No Advance Directives: No Advance Directives Information Provided: Yes service: Yes Current occupational status: retired Physical Exam Vital Signs: Vital Signs: Last Vital Signs Temp 96.7 F L 10/12/22 17:11 Pulse 97 10/12/22 17:11 Resp 17 10/12/22 17:11 BP 105/65 10/12/22 17:11 Pulse Ox 93 10/12/22 17:11 O2 Del Method Room Air 10/12/22 17:11 BMI result Body Mass Index 31.7 67-year-old male sitting in bed acutely dyspneic using accessory muscle uses and tachypneic on exam. His lungs display diffuse wheezes with scattered rhonchi. Heart is tachycardic. Abdomen is soft, obese, and non tender. No significant lower extremity edema. Mentation is normal. Medications Administered Discontinued Medications Generic Name Dose Route Start Last Admin Trade Name Freq PRN Reason Stop Dose Admin Methylprednisolone Sodium Succinate 125 mg 10/12/22 18:24 10/12/22 18:56 Methylprednisolone Sod Succ 125 Mg/2 Ml Vial IVPUSH 10/12/22 18:25 125 mg ONCE ONE Administration Medical Decision Making Medical Decision Making MDM Narrative: 67-year-old male with a history of COPD and paroxysmal AFib on Eliquis who was recently discharged from the hospital 3 days ago for COPD exacerbation presenting with persistent/worsening dyspnea. He appears in obvious respiratory discomfort on exam with diffuse wheezing. Concerns her for a persistent COPD exacerbation versus pneumonia. Do not suspect ACS or CHF. Will administer high-dose albuterol and 125 mg of Solu-Medrol. Labs reviewed along with chest x-ray. At this time findings are concerning for persistent exacerbation of his COPD. I do not feel strongly the patient is infected at this time and he is already being covered with doxycycline. Will admit the patient to the hospitalist service. He has been accepted in the ER requesting a CT of his chest which will be performed. They have elected to hold on additional antibiotics at this time as well. Will continue close monitoring while he is in the emergency department. Differential Diagnosis Differential Diagnoses: The differential diagnosis associated with the presentation includes COPD exacerbation, pneumonia, sepsis, ACS, CHF exacerbation Admission/Observation Consideration of admission/observation: Escalation of care including admission/observation considered Consult Healthcare Provider Management of the patient was discussed with: Hospitalist Lab Data MDM Lab Attestation statement: I reviewed the patient's lab results. 10/12/22 17:46 10/12/22 17:46 Labs: Lab Results 10/12/22 10/12/22 10/12/22 Range/Units 17:46 17:46 17:46 WBC 15.7 H (4.8-10.8) X10*3/uL RBC 4.62 (4.60-5.80) X10*6/uL Hgb 14.2 (14.0-18.0) g/dl Hct 42.5 (42.0-52.0) % MCV 92.0 (80.0-98.0) fL MCH 30.7 (27.0-33.0) pg MCHC 33.4 (31.0-36.0) g/dl RDW 12.5 (11.0-16.0) % Plt Count 479 H (160-400) X10*3/uL MPV 9.6 (9.4-12.4) fL Immature Gran % (Auto) 1.9 H (0.0-0.4) % Neut % (Auto) 73.3 H (45-73) % Lymph % (Auto) 15.1 L (20-40) % [place] % (Auto) 8.0 (2-11) % Eos % (Auto) 1.4 (0-4) % Baso % (Auto) 0.3 (0-2) % Lymph # (Auto) 2.4 (1.2-4.9) X10*3/uL [place] # (Auto) 1.3 H (0.1-1.2) X10*3/uL Eos # (Auto) 0.2 (0.0-0.4) X10*3/uL Baso # (Auto) 0.0 (0.0-0.2) X10*3/uL Abs Immat Gran (auto) 0.30 H (0.00-0.03) X10*3/uL Absolute Neuts (auto) 11.5 H (2.0-8.3) x10*3/uL Absolute Nucleated RBC 0.000 (0.0-0.012) X10*3/uL Nucleated RBC % (auto) 0.0 (0.0-0.2) /100WBC PT (10.0-13.1) SEC INR (0.9-1.1) APTT (26.0-36.4) SEC VBG pH (7.32-7.43) VBG pCO2 mmHg VBG pO2 mmHg VBG HCO3 (22-26) mmol/L VBG O2 Saturation % VBG Base Excess mmol/L Sodium 139 (135-145) mmol/L Potassium 4.5 (3.3-5.1) mmol/L Chloride 105 (96-108) mmol/L Carbon Dioxide 28 (22-29) mmol/L Anion Gap 11 L (12-20) BUN 23 H (9-16) mg/dL Creatinine 1.13 (0.5-1.4) mg/dL Estim Creat Clear Calc 72.9 Estimated GFR > 60 Random Glucose 104 (60-115) mg/dL Calcium 8.9 (8.4-10.2) mg/dL Magnesium 2.1 (1.6-2.6) mg/dL Total Bilirubin 0.4 (0.0-1.0) mg/dL AST 35 (5-37) U/L ALT 79 H (0-40) U/L Alkaline Phosphatase 134 H (39-117) U/L Troponin I High Sens 6.3 (<3.5-35.0) ng/L Total Protein 6.3 L (6.5-8.0) g/dL Albumin 3.1 L (3.5-5.0) g/dL COVID-19 ([facility]) (Negative) COVID-19 Clin Com 10/12/22 10/12/22 10/12/22 Range/Units 17:46 17:46 18:47 WBC (4.8-10.8) X10*3/uL RBC (4.60-5.80) X10*6/uL Hgb (14.0-18.0) g/dl Hct (42.0-52.0) % MCV (80.0-98.0) fL MCH (27.0-33.0) pg MCHC (31.0-36.0) g/dl RDW (11.0-16.0) % Plt Count (160-400) X10*3/uL MPV (9.4-12.4) fL Immature Gran % (Auto) (0.0-0.4) % Neut % (Auto) (45-73) % Lymph % (Auto) (20-40) % [place] % (Auto) (2-11) % Eos % (Auto) (0-4) % Baso % (Auto) (0-2) % Lymph # (Auto) (1.2-4.9) X10*3/uL [place] # (Auto) (0.1-1.2) X10*3/uL Eos # (Auto) (0.0-0.4) X10*3/uL Baso # (Auto) (0.0-0.2) X10*3/uL Abs Immat Gran (auto) (0.00-0.03) X10*3/uL Absolute Neuts (auto) (2.0-8.3) x10*3/uL Absolute Nucleated RBC (0.0-0.012) X10*3/uL Nucleated RBC % (auto) (0.0-0.2) /100WBC PT 12.8 (10.0-13.1) SEC INR 1.1 (0.9-1.1) APTT 30.4 (26.0-36.4) SEC VBG pH 7.41 (7.32-7.43) VBG pCO2 43 mmHg VBG pO2 55 mmHg VBG HCO3 27 H (22-26) mmol/L VBG O2 Saturation 85.0 % VBG Base Excess 3.0 mmol/L Sodium (135-145) mmol/L Potassium (3.3-5.1) mmol/L Chloride (96-108) mmol/L Carbon Dioxide (22-29) mmol/L Anion Gap (12-20) BUN (9-16) mg/dL Creatinine (0.5-1.4) mg/dL Estim Creat Clear Calc Estimated GFR Random Glucose (60-115) mg/dL Calcium (8.4-10.2) mg/dL Magnesium (1.6-2.6) mg/dL Total Bilirubin (0.0-1.0) mg/dL AST (5-37) U/L ALT (0-40) U/L Alkaline Phosphatase (39-117) U/L Troponin I High Sens (<3.5-35.0) ng/L Total Protein (6.5-8.0) g/dL Albumin (3.5-5.0) g/dL COVID-19 ([facility]) Negative (Negative) COVID-19 Clin Com See Note ABG Data Attestation ABG: I personally reviewed and interpreted this ABG as follows: Independent Interpretation I performed an independent interpretation of an: EKG and Plain X-Ray Interpretation: NSR rate of 88. No STEMI. QTc 425. Very subtle b/l hazy opacities when compared to prior Radiology Impression Discussion of test interpretation with radiology: I discussed test interpretation with the radiologist Radiologist Impression: XR/XR chest 2V IMPRESSION: Subtle hazy patchy multifocal airspace opacities in the mid and lower lungs bilaterally. CT chest may be helpful for further assessment. Critical Care Time Critical Care Time Critical Care Time: Yes Total Critical Care Time: 35 Attestation: Acute hypoxic respiratory failure in the setting of known COPD presenting with possible superimposed pneumonia requiring frequent frequent bedside evaluations of cardiopulmonary status along with aggressive medication administration. Discharge Plan Discharge Clinical Impression: Respiratory failure Patient Disposition: Admitted As Inpatient
[2022-10-12 18:55] LABS: VBG HCO3 27 mmol/L (22-26); VBG pCO2 43 mmHg; VBG pH 7.41 (7.32-7.43); VBG pO2 55 mmHg
[2022-10-12] MEDS: methylPREDNISolone Sod Succ 125 MG/2 ML VIAL IVPUSH (18:56)
[2022-10-12 19:05] LABS: Venous Blood Gas Refer to POC result
[2022-10-12 19:11] LABS: Phosphorus 3.4 mg/dL (2.7-4.5)
[2022-10-12] MEDS: Albuterol Sulfate (0.083%) 2.5 MG/3 ML VIAL.NEB 10 MG INHALE (19:37)
[2022-10-12 19:38] LABS: Procalcitonin 0.19 ng/mL
[2022-10-12 19:45] VITALS: PULSE 81; RESP 25; O2SAT 93
--- NOTE | 2022-10-12 19:52 | P.HPHOSP_ITS ---
History of Present Illness Date of Service: 10/12/22 Attending physician on admission: [facility] Chief Complaint: SOB Pt is a 67-year-old male with a PMH significant for?COPD, asthma, BPH, RAYMOND on CPAP, paroxysmal AFib on Eliquis, and venous insufficiency who presents to the ED with?persistent shortness of breath. Patient was discharged from the hospital 3 days prior after being admitted and treated for a COPD exacerbation. Patient was discharged on a 6-day course of doxycycline and on a prednisone taper. Patient states he was compliant with his medications but had no improvement to his symptoms. Has been essentially bed-bound since discharge. Patient complains of persistent shortness of breath with exertion. Has had a cough occasionally productive of whitish sputum. Patient also had a right-sided lower back pain with cough and deep inspiration. He describes it as achy and gone whenever he expires. Patient has been recording his O2 sats at home since discharge and notes they have been in the 80s to low 90s with a low of 84%. Patient denies fever, chills, nausea, vomiting. No abdominal pain. Patient denies chest pain/pressure, palpitations. In the ED patient was afebrile, tachypneic up to 25, and satting at 90% O2 on RA. Labs were significant for leukocytosis of 15.7 (down from 22.2 on 10/09/2022), chronically elevated platelets of 479, ALT 79, alk-phos 134, procalcitonin 0.19. Electrolytes WNL. Renal function baseline. Lactic acid WNL at 1.0. Coags WNL. VBG unremarkable. CXR showed subtle hazy patchy multifocal airspace opacities in the mid and lower lungs bilaterally. CT?of chest showed numerous bilateral nodular and patchy airspace opacities many with tree-in-bud distribution that favors an infectious/inflammatory process such as an atypical pneumonia. It is suggested that patient have a follow-up CT to ensure adequate resolution to rule out underlying malignancy. CT also found mediastinal and hilar lymphadenopathy that is likely reactive. EKG demonstrated normal sinus rhythm without evidence of ST elevations or depressions. Pt was treated with Solu-Medrol and DuoNebs. Pt will be admitted to the hospital acute hypoxic respiratory failure in the setting of COPD exacerbation with possible superimposed multifocal pneumonia. Review of Systems Review of Systems: Shortness of breath primarily with exertion Occasionally productive cough Right-sided lower back pain with cough and deep breathing [facility] Medical History AC (acromioclavicular) joint arthritis Asthma-COPD overlap syndrome BPH (benign prostatic hyperplasia) Chronic rhinitis COPD (chronic obstructive pulmonary disease) Echocardiogram abnormal Edema leg Encounter for screening for lung cancer Hyperlipidemia RAYMOND on CPAP PAF (paroxysmal atrial fibrillation) (~2017) Pulmonary nodules Seasonal allergies Tubular adenoma of colon (~2005) Venous insufficiency of both lower extremities Family History Father No problems noted. Mother CAD (coronary artery disease) CHF (congestive heart failure) HTN (hypertension) Brother No problems noted. Brother No problems noted. Sister No problems noted. Sister No problems noted. Sister No problems noted. Son No problems noted. Son No problems noted. Surgical History History of appendectomy History of cataract (~2009) History of colonoscopy History of esophagogastroduodenoscopy (EGD) History of nasal septoplasty (~2008) History of repair of right rotator cuff (~2017) History of total left hip replacement (~2019) Social History Household Members: Spouse Housing: House Do you presently have visiting nurse or other home services: No Alcohol intake: current Alcohol intake frequency: holidays/special occasions only Patient Tobacco Use Status: Former Tobacco user Tobacco use type: Cigarette Years Smoked: 40 years Smoked in Last 30 Days: No e-Cigarette/Vaping Use: Former Use Second Hand Smoke Exposure: No Use of substances other than those prescribed or required for medical reasons: No Currently Displaying Signs/Symptoms of Drug Intoxication Withdrawal: No Have you been hit, kicked, punched, or otherwise hurt by someone within the past year? If so, by whom?: No Do you feel safe in your current relationship?: Yes Is there a partner from a previous relationship who is making you feel unsafe now?: No Are you made to feel afraid or neglected: No Advance Directives: No Advance Directives Information Provided: Yes Do you have thoughts of harming others: None Do you have a plan to hurt others: No Plan Recently lost weight without trying: Yes Eating poorly because of decreased appetite: No Nutrition Risks: No Nutritional Risk service: Yes Current occupational status: retired Meds Allergies Allergy/AdvReac Type Severity Reaction Status Date / Time watermelon [WATERMELON] Allergy Severe ANAPHYLAXIS Verified 10/07/22 20:20 Iodinated Contrast Media Allergy Intermediate LIGHT Verified 10/07/22 20:20 [IV CONTRAST] HEADED AND SHORTNESS OF BREATH Active Medications: Current Medications Pharmacy Consult (Consult Rx Perform Med Rec) 1 each MISCELLANE ONCE PRN PRN Reason: Consult order Home Medications Medication Instructions Recorded Confirmed Last Taken Type albuterol sulfate 90 mcg/actuation 2 puff inhalation QID 11/23/21 10/12/22 10/11/22 08:00 History aerosol inhaler CPAP (CPAP Machine/Device) 02/15/22 07/26/22 Unknown History nebulizers 02/15/22 07/26/22 Unknown History tezepelumab-ekko 210 mg/1.91 mL 210 mg subcut Q4W 03/22/22 10/12/22 10/11/22 08:00 History (110 mg/mL) subcutaneous syringe (Tezspire) fluticasone propionate 220 1 puff inhalation Q12H 10/08/22 10/12/22 10/11/22 08:00 History mcg/actuation HFA aerosol inhaler (Flovent HFA) Physical Exam Vital Signs and Narrative: Vital Signs: Last Vital Signs Temp 96.7 F L 10/12/22 17:11 Pulse 81 10/12/22 19:45 Resp 25 H 10/12/22 19:45 BP 105/65 10/12/22 17:11 Pulse Ox 93 10/12/22 17:11 O2 Del Method Room Air 10/12/22 17:11 BMI result Body Mass Index 31.7 Constitutional: Alert, in mild respiratory discomfort. Mental Status: Oriented to person, place and time. Eyes: Pupils are equal, round, and reactive to light. Ear, Nose, and Throat: Oropharynx clear, mucous membranes moist. Ears and nose without deformities. Trachea midline. Respiratory: Diffuse rhonchi and wheezing. Significant coughing with deep inspiration. Cardiovascular: S1, S2 regular. No murmurs, rubs, or gallops. Gastrointestinal: Abdomen soft, non-tender, non-distended. Normal bowel sounds. Neurologic: Cranial nerves II-XII are grossly intact bilaterally. No focal neurological deficits. Moves all extremities spontaneously. Skin: Warm, dry. Musculoskeletal: No cyanosis or clubbing. Extremities: Trace bilateral pitting edema. Psychiatric: Normal mood and affect. Results Labs 10/12/22 17:46 10/12/22 17:46 Labs: Laboratory Results - last 24 hr 10/12/22 10/12/22 10/12/22 17:46 17:46 17:46 MCV 92.0 MCH 30.7 MCHC 33.4 RDW 12.5 Plt Count 479 H MPV 9.6 Immature Gran % (Auto) 1.9 H Neut % (Auto) 73.3 H Lymph % (Auto) 15.1 L [place] % (Auto) 8.0 Eos % (Auto) 1.4 Baso % (Auto) 0.3 Lymph # (Auto) 2.4 [place] # (Auto) 1.3 H Eos # (Auto) 0.2 Baso # (Auto) 0.0 Abs Immat Gran (auto) 0.30 H Absolute Neuts (auto) 11.5 H Absolute Nucleated RBC 0.000 Nucleated RBC % (auto) 0.0 PT INR APTT VBG pH VBG pCO2 VBG pO2 VBG HCO3 VBG O2 Saturation VBG Base Excess Anion Gap 11 L Estim Creat Clear Calc 72.9 Estimated GFR > 60 Random Glucose 104 Lactic Acid Calcium 8.9 Phosphorus Magnesium 2.1 Total Bilirubin 0.4 AST 35 ALT 79 H Alkaline Phosphatase 134 H Troponin I High Sens 6.3 Total Protein 6.3 L Albumin 3.1 L Procalcitonin COVID-19 ([facility]) COVID-19 Clin Com 10/12/22 10/12/22 10/12/22 17:46 17:46 18:45 MCV MCH MCHC RDW Plt Count MPV Immature Gran % (Auto) Neut % (Auto) Lymph % (Auto) [place] % (Auto) Eos % (Auto) Baso % (Auto) Lymph # (Auto) [place] # (Auto) Eos # (Auto) Baso # (Auto) Abs Immat Gran (auto) Absolute Neuts (auto) Absolute Nucleated RBC Nucleated RBC % (auto) PT 12.8 INR 1.1 APTT 30.4 VBG pH VBG pCO2 VBG pO2 VBG HCO3 VBG O2 Saturation VBG Base Excess Anion Gap Estim Creat Clear Calc Estimated GFR Random Glucose Lactic Acid Calcium Phosphorus 3.4 Magnesium Total Bilirubin AST ALT Alkaline Phosphatase Troponin I High Sens Total Protein Albumin Procalcitonin 0.19 COVID-19 ([facility]) Negative COVID-19 Clin Com See Note 10/12/22 10/12/22 18:47 19:22 MCV MCH MCHC RDW Plt Count MPV Immature Gran % (Auto) Neut % (Auto) Lymph % (Auto) [place] % (Auto) Eos % (Auto) Baso % (Auto) Lymph # (Auto) [place] # (Auto) Eos # (Auto) Baso # (Auto) Abs Immat Gran (auto) Absolute Neuts (auto) Absolute Nucleated RBC Nucleated RBC % (auto) PT INR APTT VBG pH 7.41 VBG pCO2 43 VBG pO2 55 VBG HCO3 27 H VBG O2 Saturation 85.0 VBG Base Excess 3.0 Anion Gap Estim Creat Clear Calc Estimated GFR Random Glucose Lactic Acid 1.0 Calcium Phosphorus Magnesium Total Bilirubin AST ALT Alkaline Phosphatase Troponin I High Sens Total Protein Albumin Procalcitonin COVID-19 ([facility]) COVID-19 Clin Com Imaging Radiologist's Impressions: Impressions Chest X-Ray 10/12/22 17:59 IMPRESSION: Subtle hazy patchy multifocal airspace opacities in the mid and lower lungs bilaterally. CT chest may be helpful for further assessment. Assessment and Plan (1) Acute respiratory failure with hypoxia: Status: Acute (2) COPD with acute exacerbation: Status: Acute (3) Pneumonia: Status: Acute Plan Pt is a 67-year-old male with a PMH significant for?COPD, asthma, BPH, RAYMOND on CPAP, paroxysmal AFib on Eliquis, and venous insufficiency who presents to the ED with?persistent shortness of breath. Patient was discharged from the hospital 3 days prior after being admitted and treated for a COPD exacerbation. Pt will be admitted to the hospital acute hypoxic respiratory failure in the setting of COPD exacerbation with likely superimposed multifocal pneumonia. Acute hypoxic respiratory failure in the setting of COPD exacerbation with likely superimposed multifocal pneumonia Patient discharged from hospital 3 days prior after being treated for COPD exacerbation Has continued wheezing, dyspnea, cough and sputum production since discharge despite treatment with doxy and prednisone Has been hypoxic at home as low as 87% Will treat with Solu-Medrol IV, DuoNebs Monitor respiratory status Titrate O2>92, wean as tolerated Question of multifocal pneumonia CXR showed subtle hazy patchy multifocal airspace opacities in the mid and lower lungs bilaterally CT of chest shows numerous bilateral nodular and patchy airspace opacities many with tree-in-bud distribution favoring an infectious/inflammatory process like an atypical pneumonia Hold doxycycline Will start patient on IV Zosyn, started 10/12/2022 Follow cultures Sepsis Patient meets sepsis criteria: Likely infection, WBC, tachypnea Lactic acid WNL at 1.0 Patient resuscitated with IVF and covered with broad-spectrum antibiotics Abnormal chest CT Chest CT with numerous bilateral nodular patchy airspace opacities, many and tree-in-bud distribution Chest CT also found mediastinal and hilar lymphadenopathy likely reactive CT recommendation is for short-term follow-up diagnostic chest CT to ensure adequate resolution and rule out underlying malignancy BPH Continue tamsulosin RAYMOND CPAP at bedtime Paroxysmal AFib Continue Eliquis HLD Continue statin Full Code Attending:?Dr. Ritter DVT Prophylaxis: On Eliquis Pt will require a hospitalization of at least two nights for treatment of? with . Pt will be admitted to the hospital acute hypoxic respiratory failure in the setting of COPD exacerbation with possible superimposed multifocal pneumonia. Time Spent With Patient Time: Total time managing care of this patient today ____ minutes. Quality Stroke Does the patient have a stroke diagnosis?: No VTE Prior VTE?: No VTE Risk Level:: Medical - moderate - high VTE Device Contraindication: Treatment Not Indicated VTE Drug Contraindication: N/A - Med Ordered
--- NOTE | 2022-10-12 20:31 | PC.NURSE ---
Report given to Horacio ATKINSON to move pt to overflow bed 2.
[2022-10-12 20:41] VITALS: BP 153/66; PULSE 98; RESP 24; TEMP 36.7; O2SAT 90
--- NOTE | 2022-10-12 20:45 | PHA.MEDREC ---
Pharmacy Consult ? Medication Reconciliation Pharmacy has completed the medication reconciliation. Pt discharged from this facility 3 days ago. Med rec done from discharge summary.
[2022-10-12] MEDS: iohexoL 350 MG/ML 100 ML INFUS..BTL IV (21:01)
--- NOTE | 2022-10-12 21:20 | PC.NURSE ---
pt arrived via stretcher from main ed, no resp distress observed, resting comfortably, at bedside
[2022-10-12] MEDS: Albuterol/Iprat 2.5/0.5MG 3 ML AMPUL.NEB INHALE (22:01)
[2022-10-12 22:04] VITALS: PULSE 100; RESP 18; O2SAT 93
[2022-10-12] MEDS: Tamsulosin HCL 0.4 MG CAPSULE PO ×2 (22:42→22:44)
[2022-10-12] MEDS: 0.9 % Sodium Chloride 500 ML IV (22:42)
[2022-10-12] MEDS: Apixaban 5 MG TABLET PO (22:44)
[2022-10-12 23:06] VITALS: BP 130/54; PULSE 68; RESP 20; TEMP 36.7; O2SAT 91
--- NOTE | 2022-10-12 23:18 | PC.NURSE ---
pt spo2 89-91% on room air . placed on 2 liters of oxygen [place]
[2022-10-13] VITALS (9 sets, daily range): BP systolic 131–148; BP diastolic 60–68; PULSE 75–102; RESP 17–20; TEMP 36.4–36.7; O2SAT 92–96; BMI 31.9
[2022-10-13] MEDS: Piperacillin Sodium/Tazobactam 4.5 GM in 0.9 % Sodium Chloride 100 ML IV ×4 (00:27→17:00)
[2022-10-13] MEDS: Dronedarone HCl 400 MG TABLET PO ×3 (00:28→20:49)
[2022-10-13] MEDS: 0.9 % Sodium Chloride Flush 3 ML SYRINGE IVFLUSH ×2 (00:28→07:16)
[2022-10-13] MEDS: buPROPion HCL 75 MG TABLET 150 MG PO ×3 (00:28→20:49)
[2022-10-13 06:20] LABS: Mean Corpuscular HGB Conc 32.6 g/dl (31.0-36.0); Mean Corpuscular Hemoglobin 30.3 pg (27.0-33.0); Mean Corpuscular Volume 93.1 fL (80.0-98.0); Mean Platelet Volume 9.7 fL (9.4-12.4); Platelet Count 450 X10*3/uL (160-400); Red Blood Count 4.62 X10*6/uL (4.60-5.80); Red Cell Distribution Width 12.3 % (11.0-16.0); White Blood Count 18.8 X10*3/uL (4.8-10.8)
[2022-10-13 06:29] LABS: Anion Gap 16 (12-20); Blood Urea Nitrogen 25 mg/dL (9-16); Calcium 8.8 mg/dL (8.4-10.2); Carbon Dioxide 22 mmol/L (22-29); Chloride 108 mmol/L (96-108); Creatinine Clr Calc Pharmacy 61.2; Estimated Glomerular Filt Rate 53; Glucose Random 153 mg/dL (60-115); Potassium 5.1 mmol/L (3.3-5.1); Sodium 141 mmol/L (135-145)
[2022-10-13] MEDS: methylPREDNISolone Sod Succ 40 MG/ML VIAL IVPUSH ×2 (07:16→20:49)
[2022-10-13] MEDS: Tamsulosin HCL 0.4 MG CAPSULE PO ×2 (07:17→20:50)
[2022-10-13] MEDS: Montelukast Sodium 10 MG TABLET PO (07:17)
[2022-10-13] MEDS: Atorvastatin Calcium 80 MG TABLET PO (07:17)
[2022-10-13] MEDS: Apixaban 5 MG TABLET PO ×2 (07:17→20:49)
[2022-10-13] MEDS: Furosemide 20 MG TABLET PO (07:17)
[2022-10-13] MEDS: Albuterol/Iprat 2.5/0.5MG 3 ML AMPUL.NEB INHALE ×4 (07:40→20:09)
--- NOTE | 2022-10-13 08:43 | P.PNIM_ITS ---
Subjective Subjective Date of Service: 10/13/22 Interval History: f/u on PNA, copd exacerbation, hypoxia interval history: doesn't feel good, no respiratory distress, cough Physical Exam Vital Signs: Vital Signs: Last Vital Signs Temp 97.9 F 10/13/22 07:38 Pulse 75 10/13/22 07:42 Resp 18 10/13/22 07:42 BP 141/66 H 10/13/22 07:38 Pulse Ox 96 10/13/22 07:38 O2 Del Method Nasal Cannula 10/13/22 07:38 O2 Flow Rate 3 10/13/22 07:38 BMI result Body Mass Index 31.9 Const: Other: General: AO X 3, no acute distress Resp: diffuse rhonchi CVS: S1,S2,RRR GI: +BS, NT, no distention Skin: No rash Neuro: motor grossly intact Psych: appropriate affect Objective Data Active Medications Acetaminophen (Acetaminophen 325 Mg Tablet) 650 mg PO Q6H PRN PRN Reason: Pain, Mild (Pain Scale 1-3) Albuterol Sulfate (Albuterol Sulfate 90 Mcg 8 Gm Inhaler) 2 puff INHALE RQID [facility] Last Admin: 10/13/22 07:40 Dose: Not Given Documented By: SHIN Non-Admin Reason: See Note Albuterol/Ipratropium (Albuterol/Iprat 2.5/0.5mg 3 Ml Ampul.Neb) 3 ml INHALE RQ4H WHILE AWAKE [facility] Last Admin: 10/13/22 07:40 Dose: 3 ml Documented By: SHIN Apixaban (Apixaban 5 Mg Tablet) 5 mg PO BID [facility] Last Admin: 10/13/22 07:17 Dose: 5 mg Documented By: STEPHON Atorvastatin Calcium (Atorvastatin Calcium 80 Mg Tablet) 80 mg PO DAILY [facility] Last Admin: 10/13/22 07:17 Dose: 80 mg Documented By: STEPHON Bupropion HCl (Bupropion Hcl 75 Mg Tablet) 150 mg PO BID [facility] Last Admin: 10/13/22 07:16 Dose: 150 mg Documented By: STEPHON Docusate Sodium (Docusate Sodium 100 Mg Capsule) 100 mg PO DAILY PRN PRN Reason: Constipation Dronedarone (Dronedarone Hcl 400 Mg Tablet) 400 mg PO BID [facility] Last Admin: 10/13/22 07:17 Dose: 400 mg Documented By: STEPHON Furosemide (Furosemide 20 Mg Tablet) 20 mg PO DAILY [facility]; Protocol Last Admin: 10/13/22 07:17 Dose: 20 mg Documented By: STEPHON Piperacillin Sod/Tazobactam (Sod 4.5 gm/ Sodium Chloride) 100 mls @ 200 mls/hr IV Q6H [facility] Last Infusion: 10/13/22 06:33 Dose: 0 mls/hr Documented By: PANTERA Methylprednisolone Sodium Succinate (Methylprednisolone Sod Succ 40 Mg/Ml Vial) 40 mg IVPUSH Q12H [facility] Last Admin: 10/13/22 07:16 Dose: 40 mg Documented By: STEPHON Montelukast Sodium (Montelukast Sodium 10 Mg Tablet) 10 mg PO DAILY [facility] Last Admin: 10/13/22 07:17 Dose: 10 mg Documented By: STEPHON Non-Formulary Medication (Roflumilast [Daliresp]) 500 mcg PO DAILY [facility] Ondansetron HCl (Ondansetron Hcl 4 Mg/2 Ml Vial) 4 mg IVPUSH Q8H PRN PRN Reason: Nausea and Vomiting Pharmacy Consult (Consult Rx Perform Med Rec) 1 each MISCELLANE ONCE PRN PRN Reason: Consult order Sodium Chloride (0.9 % Sodium Chloride Flush 3 Ml Syringe) 3 ml IVFLUSH QSHIFT [facility] Last Admin: 10/13/22 07:16 Dose: 3 ml Documented By: STEPHON Tamsulosin HCl (Tamsulosin Hcl 0.4 Mg Capsule) 0.4 mg PO BID [facility] Last Admin: 10/13/22 07:17 Dose: 0.4 mg Documented By: STEPHON Labs 10/13/22 05:35 10/13/22 05:35 Labs: Laboratory Results - last 24 hr 10/12/22 10/12/22 10/12/22 17:46 17:46 17:46 MCV 92.0 MCH 30.7 MCHC 33.4 RDW 12.5 Plt Count 479 H MPV 9.6 Immature Gran % (Auto) 1.9 H Neut % (Auto) 73.3 H Lymph % (Auto) 15.1 L [place] % (Auto) 8.0 Eos % (Auto) 1.4 Baso % (Auto) 0.3 Lymph # (Auto) 2.4 [place] # (Auto) 1.3 H Eos # (Auto) 0.2 Baso # (Auto) 0.0 Abs Immat Gran (auto) 0.30 H Absolute Neuts (auto) 11.5 H Absolute Nucleated RBC 0.000 Nucleated RBC % (auto) 0.0 PT INR APTT VBG pH VBG pCO2 VBG pO2 VBG HCO3 VBG O2 Saturation VBG Base Excess Anion Gap 11 L Estim Creat Clear Calc 72.9 Estimated GFR > 60 Random Glucose 104 Lactic Acid Calcium 8.9 Phosphorus Magnesium 2.1 Total Bilirubin 0.4 AST 35 ALT 79 H Alkaline Phosphatase 134 H Troponin I High Sens 6.3 Total Protein 6.3 L Albumin 3.1 L Procalcitonin COVID-19 ([facility]) COVID-19 Immunetics Com 10/12/22 10/12/22 10/12/22 17:46 17:46 18:45 MCV MCH MCHC RDW Plt Count MPV Immature Gran % (Auto) Neut % (Auto) Lymph % (Auto) [place] % (Auto) Eos % (Auto) Baso % (Auto) Lymph # (Auto) [place] # (Auto) Eos # (Auto) Baso # (Auto) Abs Immat Gran (auto) Absolute Neuts (auto) Absolute Nucleated RBC Nucleated RBC % (auto) PT 12.8 INR 1.1 APTT 30.4 VBG pH VBG pCO2 VBG pO2 VBG HCO3 VBG O2 Saturation VBG Base Excess Anion Gap Estim Creat Clear Calc Estimated GFR Random Glucose Lactic Acid Calcium Phosphorus 3.4 Magnesium Total Bilirubin AST ALT Alkaline Phosphatase Troponin I High Sens Total Protein Albumin Procalcitonin 0.19 COVID-19 ([facility]) Negative COVID-19 Clin Com See Note 10/12/22 10/12/22 10/13/22 18:47 19:22 05:35 MCV 93.1 MCH 30.3 MCHC 32.6 RDW 12.3 Plt Count 450 H MPV 9.7 Immature Gran % (Auto) Neut % (Auto) Lymph % (Auto) [place] % (Auto) Eos % (Auto) Baso % (Auto) Lymph # (Auto) [place] # (Auto) Eos # (Auto) Baso # (Auto) Abs Immat Gran (auto) Absolute Neuts (auto) Absolute Nucleated RBC 0.000 Nucleated RBC % (auto) 0.0 PT INR APTT VBG pH 7.41 VBG pCO2 43 VBG pO2 55 VBG HCO3 27 H VBG O2 Saturation 85.0 VBG Base Excess 3.0 Anion Gap Estim Creat Clear Calc Estimated GFR Random Glucose Lactic Acid 1.0 Calcium Phosphorus Magnesium Total Bilirubin AST ALT Alkaline Phosphatase Troponin I High Sens Total Protein Albumin Procalcitonin COVID-19 ([facility]) COVID-19 Clin Com 10/13/22 05:35 MCV MCH MCHC RDW Plt Count MPV Immature Gran % (Auto) Neut % (Auto) Lymph % (Auto) [place] % (Auto) Eos % (Auto) Baso % (Auto) Lymph # (Auto) [place] # (Auto) Eos # (Auto) Baso # (Auto) Abs Immat Gran (auto) Absolute Neuts (auto) Absolute Nucleated RBC Nucleated RBC % (auto) PT INR APTT VBG pH VBG pCO2 VBG pO2 VBG HCO3 VBG O2 Saturation VBG Base Excess Anion Gap 16 Estim Creat Clear Calc 61.2 Estimated GFR 53 Random Glucose 153 H Lactic Acid Calcium 8.8 Phosphorus Magnesium Total Bilirubin AST ALT Alkaline Phosphatase Troponin I High Sens Total Protein Albumin Procalcitonin COVID-19 ([facility]) COVID-19 Clin Com Assessment and Plan (1) Pneumonia: Status: Acute (2) COPD with acute exacerbation: Status: Acute (3) Respiratory failure: Status: Acute Plan 67-year-old male with a PMH significant for?COPD, asthma, BPH, RAYMOND on CPAP, paroxysmal AFib on Eliquis, and venous insufficiency who presents to the ED with?persistent shortness of breath. Patient was discharged from the hospital 3 days prior after being admitted and treated for a COPD exacerbation. Pt will be admitted to the hospital acute hypoxic respiratory failure in the setting of COPD exacerbation with likely superimposed multifocal pneumonia. Acute hypoxic respiratory failure in the setting of COPD exacerbation with likely superimposed multifocal pneumonia -treat underlying pneumonia, supplmental O2 goal of O2 sat 93, pulmonology consult Copd exacerbation--supplemental oxygen, bronchodilators by neb, iv steroid multifocal pneumonia with atypical pattern, -Zosyn 10/12, -repeat CT in near future Sepsis d/t PNA, Zosyn as above Leukocytosis--in part d/t sepsis, and recent use of steroid BPH Continue tamsulosin RAYMOND CPAP at bedtime Paroxysmal AFib Continue Eliquis HLD Continue statin Full Code DVT Prophylaxis: On Eliquis Pt will require a hospitalization of at least two nights for treatment of? with . Need for inpatient: IV Abx for sepsis, PNA, and oxygen for acute resp failure with hypoxia. Time Spent With Patient Time: Total time managing care of this patient today ____ minutes. Quality Stroke Does the patient have a stroke diagnosis?: No VTE Prior VTE?: No VTE Risk Level:: Medical - moderate - high VTE Device Contraindication: Treatment Not Indicated VTE Drug Contraindication: N/A - Med Ordered
[2022-10-13 13:31] LABS: Adenovirus PCR Not Detected (Not Detect.); Bordetella parapertussis PCR Not Detected (Not Detect.); Bordetella pertussis PCR Not Detected (Not Detect.); Chlamydia pneumoniae PCR Not Detected (Not Detect.); Coronavirus 229E PCR Not Detected (Not Detect.); Coronavirus HKU1 PCR Not Detected (Not Detect.); Coronavirus NL63 PCR Not Detected (Not Detect.); Coronavirus OC43 PCR Not Detected (Not Detect.); Human metapneumovirus PCR Not Detected (Not Detect.); Influenza A PCR Not Detected (Not Detect.); Influenza B PCR Not Detected (Not Detect.); Rhino/Enterovirus PCR Not Detected (Not Detect.); SARS-CoV-2 PCR Not Detected (Not Detect.)
[2022-10-13 13:32] LABS: Mycoplasma pneumoniae PCR Not Detected (Not Detect.); Parainfluenza 1 PCR Not Detected (Not Detect.); Parainfluenza 2 PCR Not Detected (Not Detect.); Parainfluenza 3 PCR Not Detected (Not Detect.); Parainfluenza 4 PCR Not Detected (Not Detect.); RSV PCR Not Detected (Not Detect.)
--- NOTE | 2022-10-13 14:13 | MHC.CM.PN ---
PT REPORTS HE LIVES WITH FAMILY AND IS INDEPENDENT WITH CARE PT HAS NO SERVICES AND A NEBULIZER FOR DME HCP ON FILE PCP: FRANCISCO SCHAFFER [facility] DELIVER[facility] CURRENT DC PLAN IS HOME WITH NO SERVICES VIA FAMILY TRANSPORT
--- NOTE | 2022-10-13 14:37 | P.CONPL_ITS ---
History of Present Illness History of Present Illness Consult date: 10/13/22 Reason for consult: cough, COPD and hypoxemia Chief complaint: Sob Narrative: PULMONARY CONSULT I HAVE SEEN THIS 67 YEARS OLD GENTLEMAN FOR PULMONARY CONSULTATION. He is a well known case of advanced chronic obstructive pulmonary disease with history of frequent exacerbations, and has been on maximum treatment, except for oxygen. In fact he was admitted for an acute exacerbation just last week and discharged home 3 days before, on doxycycline and prednisone taper in addition to his usual medications. He return to the emergency room because of increased shortness of breath and general weakness denies any chest pain. He does have frequent cough with only minimal expectoration. In the emergency room he did have leukocytosis, which may be partly due to recent treatment with steroids. CT scan shows thickening of the bronchial miramontes multiple nodular densities in the bibasilar areas, multiple airspace densities in the mid and lower lobes, In addition also has mediastinal and hilar lymphadenopathy which may be reactive. This gentleman is known to have obstructive sleep apnea and uses CPAP at home regularly. He has varicose veins of lower extremities with chronic stasis edema. Is other comorbidities include hypertension, hyperlipidemia, paroxysmal atrial fibrillation. And he has been on anticoagulation with apixaban Review of Systems Allergic/Immunologic: Comments: His main complaint is shortness of breath, general weakness, cough, and expectoration., PMFSH Past Medical History Medical History AC (acromioclavicular) joint arthritis Asthma-COPD overlap syndrome BPH (benign prostatic hyperplasia) Chronic rhinitis COPD (chronic obstructive pulmonary disease) Echocardiogram abnormal Edema leg Encounter for screening for lung cancer Hyperlipidemia RAYMOND on CPAP PAF (paroxysmal atrial fibrillation) (~2017) Pulmonary nodules Seasonal allergies Tubular adenoma of colon (~2005) Venous insufficiency of both lower extremities Family History Family History Father No problems noted. Mother CAD (coronary artery disease) CHF (congestive heart failure) HTN (hypertension) Brother No problems noted. Brother No problems noted. Sister No problems noted. Sister No problems noted. Sister No problems noted. Son No problems noted. Son No problems noted. Surgical History Surgical History History of appendectomy History of cataract (~2009) History of colonoscopy History of esophagogastroduodenoscopy (EGD) History of nasal septoplasty (~2008) History of repair of right rotator cuff (~2017) History of total left hip replacement (~2019) Social History Social History Household Members: Spouse Housing: House Do you presently have visiting nurse or other home services: No Alcohol intake: current Alcohol intake frequency: holidays/special occasions only Patient Tobacco Use Status: Former Tobacco user Tobacco use type: Cigarette Years Smoked: 40 years e-Cigarette/Vaping Use: Former Use Second Hand Smoke Exposure: No service: Yes Current occupational status: retired Meds Allergies Allergy/AdvReac Type Severity Reaction Status Date / Time watermelon [WATERMELON] Allergy Severe ANAPHYLAXIS Verified 10/07/22 20:20 Iodinated Contrast Media Allergy Intermediate LIGHT Verified 10/07/22 20:20 [IV CONTRAST] HEADED AND SHORTNESS OF BREATH Active Medications: Current Medications Acetaminophen (Acetaminophen 325 Mg Tablet) 650 mg PO Q6H PRN PRN Reason: Pain, Mild (Pain Scale 1-3) Albuterol Sulfate (Albuterol Sulfate 90 Mcg 8 Gm Inhaler) 2 puff INHALE RQID [facility] Last Admin: 10/13/22 11:52 Dose: Not Given Albuterol/Ipratropium (Albuterol/Iprat 2.5/0.5mg 3 Ml Ampul.Neb) 3 ml INHALE RQ4H WHILE AWAKE [facility] Last Admin: 10/13/22 11:50 Dose: 3 ml Apixaban (Apixaban 5 Mg Tablet) 5 mg PO BID [facility] Last Admin: 10/13/22 07:17 Dose: 5 mg Atorvastatin Calcium (Atorvastatin Calcium 80 Mg Tablet) 80 mg PO DAILY [facility] Last Admin: 10/13/22 07:17 Dose: 80 mg Bupropion HCl (Bupropion Hcl 75 Mg Tablet) 150 mg PO BID [facility] Last Admin: 10/13/22 07:16 Dose: 150 mg Docusate Sodium (Docusate Sodium 100 Mg Capsule) 100 mg PO DAILY PRN PRN Reason: Constipation Dronedarone (Dronedarone Hcl 400 Mg Tablet) 400 mg PO BID [facility] Last Admin: 10/13/22 07:17 Dose: 400 mg Furosemide (Furosemide 20 Mg Tablet) 20 mg PO DAILY [facility]; Protocol Last Admin: 10/13/22 07:17 Dose: 20 mg Guaifenesin/Codeine Phosphate (Guaifen/Codeine Sf 200/20/10ml 10 Ml Liquid) 5 ml PO Q6H PRN PRN Reason: Cough Piperacillin Sod/Tazobactam (Sod 4.5 gm/ Sodium Chloride) 100 mls @ 200 mls/hr IV Q6H [facility] Last Infusion: 10/13/22 11:30 Dose: Infused Methylprednisolone Sodium Succinate (Methylprednisolone Sod Succ 40 Mg/Ml Vial) 40 mg IVPUSH Q12H [facility] Last Admin: 10/13/22 07:16 Dose: 40 mg Montelukast Sodium (Montelukast Sodium 10 Mg Tablet) 10 mg PO DAILY [facility] Last Admin: 10/13/22 07:17 Dose: 10 mg Non-Formulary Medication (Roflumilast [Daliresp]) 500 mcg PO DAILY [facility] Ondansetron HCl (Ondansetron Hcl 4 Mg/2 Ml Vial) 4 mg IVPUSH Q8H PRN PRN Reason: Nausea and Vomiting Pharmacy Consult (Consult Rx Perform Med Rec) 1 each MISCELLANE ONCE PRN PRN Reason: Consult order Sodium Chloride (0.9 % Sodium Chloride Flush 3 Ml Syringe) 3 ml IVFLUSH QSHIFT [facility] Last Admin: 10/13/22 10:57 Dose: Not Given Tamsulosin HCl (Tamsulosin Hcl 0.4 Mg Capsule) 0.4 mg PO BID [facility] Last Admin: 10/13/22 07:17 Dose: 0.4 mg Home Medications Medication Instructions Recorded Confirmed Last Taken Type albuterol sulfate 90 mcg/actuation 2 puff inhalation QID 11/23/21 10/12/22 10/11/22 08:00 History aerosol inhaler CPAP (CPAP Machine/Device) 02/15/22 07/26/22 Unknown History nebulizers 02/15/22 07/26/22 Unknown History tezepelumab-ekko 210 mg/1.91 mL 210 mg subcut Q4W 03/22/22 10/12/22 10/11/22 08:00 History (110 mg/mL) subcutaneous syringe (Tezspire) fluticasone propionate 220 1 puff inhalation Q12H 10/08/22 10/12/22 10/11/22 08:00 History mcg/actuation HFA aerosol inhaler (Flovent HFA) Physical Exam Vital Signs: Vital Signs: Last Vital Signs Temp 97.9 F 10/13/22 07:38 Pulse 93 10/13/22 11:51 Resp 20 10/13/22 11:51 BP 141/66 H 10/13/22 07:38 Pulse Ox 96 10/13/22 07:38 O2 Del Method Nasal Cannula 10/13/22 07:38 O2 Flow Rate 3 10/13/22 07:38 BMI result Body Mass Index 31.9 Const: General: no acute distress (But has frequent cough and is short of breath), alert and awake Orientation/consciousness: patient oriented x3 HEENT: Head: Yes normal to inspection General nose exam: No nasal polyps present and No nasal discharge present Face and sinus: Yes sinuses nontender Mouth: oropharynx normal Throat: Yes posterior oropharynx normal Eyes: General: appearance normal, both eyes and all related structures Neck: Neck: Yes normal visual inspection, Yes no lymphadenopathy, Yes trachea midline and Yes no JVD Thyroid: Thyroid normal Chest: Chest palpation & inspection: normal inspection of the chest and no te nderness Resp: Other: Breath sounds are very distant. Breathing is quite tight on both sides. He does have scattered inspiratory wheezes with a few basilar crepitations. Cardio: Palpation: normal PMI Rate: regular rate Rhythm: regular rhythm Heart sounds: no gallops and no murmurs GI: Palpation (GI): Soft to palpation, nontender, No hepatosplenomegaly present and no masses Auscultation: normal bowel sounds Back/Spine/Pelvis: Thoracic/Lumbar Spine: thoracic and lumbar spine normal to inspection Skin: General skin exam: no rashes or lesions noted Neuro: General: patient oriented x3 and no focal motor deficits Cranial ner ves: Yes CN's II-XII intact bilaterally Extrem: General: Yes normal to inspection, Yes no clubbing, cyanosis or edema and Yes no calf tenderness Psych: Appearance: grossly normal and well kempt Speech and movement: Normal speech and movement present Results Laboratory Findings 10/13/22 05:35 10/13/22 05:35 ABG, PT/INR, D-dimer: PT/INR, D-dimer PT 12.8 SEC (10.0-13.1) 10/12/22 17:46 INR 1.1 (0.9-1.1) 10/12/22 17:46 Abnormal lab findings: Abnormal Labs 10/12/22 10/12/22 10/12/22 17:46 17:46 18:47 WBC 15.7 H Plt Count 479 H Immature Gran % (Auto) 1.9 H Neut % (Auto) 73.3 H Lymph % (Auto) 15.1 L [place] # (Auto) 1.3 H Abs Immat Gran (auto) 0.30 H Absolute Neuts (auto) 11.5 H VBG HCO3 27 H Anion Gap 11 L BUN 23 H Random Glucose ALT 79 H Alkaline Phosphatase 134 H Total Protein 6.3 L Albumin 3.1 L 10/13/22 10/13/22 05:35 05:35 WBC 18.8 H Plt Count 450 H Immature Gran % (Auto) Neut % (Auto) Lymph % (Auto) [place] # (Auto) Abs Immat Gran (auto) Absolute Neuts (auto) VBG HCO3 Anion Gap BUN 25 H Random Glucose 153 H ALT Alkaline Phosphatase Total Protein Albumin Diagnostic Findings Chest x-ray: report reviewed and image reviewed CT scan - chest: report reviewed and image reviewed Assessment and Plan (1) COPD with acute exacerbation: Status: Acute (2) Acute respiratory failure with hypoxia: Status: Acute (3) PAF (paroxysmal atrial fibrillation): Status: Acute (4) Pulmonary nodules: Status: Acute (5) RAYMOND on CPAP: Status: Acute Plan This gentleman with the advanced chronic obstructive pulmonary disease/bronchiectases, and peribronchial nodularities in the lower lobes, is currently suffering from acute exacerbation of COPD probably secondary to ongoing respiratory infection. He also has obstructive sleep apnea which is treated with CPAP, and he has been fully compliant. He has not required oxygen previously but at this time he needs O2 supplementation, Recc : I agree with the current management m, including IV Solu-Medro, DuoNeb updrafts, IV doxycycline, oxygen as needed, and continue his regular medications. He may have his own CPAP from home and use at night. Patient may need to go on oxygen when he is discharged but for this he should be evaluated before the discharge. Pulmonary nodules are most likely part of bronchiectases and jazmyn bronchial nodularities, but he would need ongoing surveillance, with repeat CT scan . Time Spent With Patient Time: Total time managing care of this patient today ____ minutes. Procedures Date of Service Date of Service: 10/13/22
[2022-10-13] MEDS: guaiFEN/Codeine SF 200/20/10ML 10 ML LIQUID 5 ML PO ×2 (14:44→20:57)
[2022-10-13 15:43] LABS: MRSA Nasal PCR NEGATIVE (Negative); SA Nasal PCR NEGATIVE (Negative)
--- NOTE | 2022-10-13 16:50 | PC.NURSE ---
AP HR 102, MD notified, pt is asymptomatic at this time.
[2022-10-14] VITALS (8 sets, daily range): BP systolic 120–156; BP diastolic 59–61; PULSE 74–100; RESP 18–20; TEMP 35.3–36.8; O2SAT 94–98
[2022-10-14] MEDS: Piperacillin Sodium/Tazobactam 4.5 GM in 0.9 % Sodium Chloride 100 ML IV ×5 (00:41→23:40)
[2022-10-14] MEDS: 0.9 % Sodium Chloride Flush 3 ML SYRINGE IVFLUSH ×3 (00:44→23:43)
[2022-10-14 06:32] LABS: Hematocrit 38.9 % (42.0-52.0); Hemoglobin 12.5 g/dl (14.0-18.0); Mean Corpuscular HGB Conc 32.1 g/dl (31.0-36.0); Mean Corpuscular Hemoglobin 29.6 pg (27.0-33.0); Mean Corpuscular Volume 92.2 fL (80.0-98.0); Mean Platelet Volume 9.6 fL (9.4-12.4); Platelet Count 403 X10*3/uL (160-400); Red Blood Count 4.22 X10*6/uL (4.60-5.80); Red Cell Distribution Width 12.7 % (11.0-16.0); White Blood Count 17.6 X10*3/uL (4.8-10.8)
[2022-10-14] MEDS: guaiFEN/Codeine SF 200/20/10ML 10 ML LIQUID 5 ML PO ×3 (06:53→21:42)
[2022-10-14] MEDS: Tamsulosin HCL 0.4 MG CAPSULE PO ×2 (07:44→20:21)
[2022-10-14] MEDS: buPROPion HCL 75 MG TABLET 150 MG PO ×2 (07:44→20:21)
[2022-10-14] MEDS: Dronedarone HCl 400 MG TABLET PO ×2 (07:44→20:21)
[2022-10-14] MEDS: Furosemide 20 MG TABLET PO (07:45)
[2022-10-14] MEDS: methylPREDNISolone Sod Succ 40 MG/ML VIAL IVPUSH ×2 (07:45→20:21)
[2022-10-14] MEDS: Montelukast Sodium 10 MG TABLET PO (07:45)
[2022-10-14] MEDS: Atorvastatin Calcium 80 MG TABLET PO (07:45)
[2022-10-14] MEDS: Apixaban 5 MG TABLET PO ×2 (07:45→20:21)
--- NOTE | 2022-10-14 07:53 | HO.PM.IMPN ---
Subjective Subjective Date of Service: 10/14/22 Interval History: f/u on PNA, copd exacerbation, hypoxia interval history: feels same, Physical Exam Vital Signs: Vital Signs: Last Vital Signs Temp 97.5 F 10/14/22 04:00 Pulse 77 10/14/22 04:00 Resp 20 10/14/22 04:00 BP 120/59 L 10/14/22 04:00 Pulse Ox 95 10/14/22 04:00 O2 Del Method CPAP 10/14/22 04:00 O2 Flow Rate 2 10/14/22 04:00 BMI result Body Mass Index 31.9 Const: Other: General: AO X 3, no acute distress Resp: diffuse rhonchi CVS: S1,S2,RRR GI: +BS, NT, no distention Skin: No rash Neuro: motor grossly intact Psych: appropriate affect Objective Data Active Medications Acetaminophen (Acetaminophen 325 Mg Tablet) 650 mg PO Q6H PRN PRN Reason: Pain, Mild (Pain Scale 1-3) Albuterol Sulfate (Albuterol Sulfate 90 Mcg 8 Gm Inhaler) 2 puff INHALE RQID [facility] Last Admin: 10/13/22 20:50 Dose: Not Given Documented By: PROSPER Non-Admin Reason: Duplicate Order Albuterol/Ipratropium (Albuterol/Iprat 2.5/0.5mg 3 Ml Ampul.Neb) 3 ml INHALE RQ4H WHILE AWAKE [facility] Last Admin: 10/13/22 20:09 Dose: 3 ml Documented By: RENATA Apixaban (Apixaban 5 Mg Tablet) 5 mg PO BID [facility] Last Admin: 10/14/22 07:45 Dose: 5 mg Documented By: STEPHON Atorvastatin Calcium (Atorvastatin Calcium 80 Mg Tablet) 80 mg PO DAILY [facility] Last Admin: 10/14/22 07:45 Dose: 80 mg Documented By: STEPHON Bupropion HCl (Bupropion Hcl 75 Mg Tablet) 150 mg PO BID [facility] Last Admin: 10/14/22 07:44 Dose: 150 mg Documented By: STEPHON Docusate Sodium (Docusate Sodium 100 Mg Capsule) 100 mg PO DAILY PRN PRN Reason: Constipation Dronedarone (Dronedarone Hcl 400 Mg Tablet) 400 mg PO BID [facility] Last Admin: 10/14/22 07:44 Dose: 400 mg Documented By: STEPHON Furosemide (Furosemide 20 Mg Tablet) 20 mg PO DAILY [facility]; Protocol Last Admin: 10/14/22 07:45 Dose: 20 mg Documented By: STEPHON Guaifenesin/Codeine Phosphate (Guaifen/Codeine Sf 200/20/10ml 10 Ml Liquid) 5 ml PO Q6H PRN PRN Reason: Cough Last Admin: 10/14/22 06:53 Dose: 5 ml Documented By: STEPHON Piperacillin Sod/Tazobactam (Sod 4.5 gm/ Sodium Chloride) 100 mls @ 200 mls/hr IV Q6H [facility] Last Infusion: 10/14/22 07:20 Dose: 0 mls/hr Documented By: STEPHON Methylprednisolone Sodium Succinate (Methylprednisolone Sod Succ 40 Mg/Ml Vial) 40 mg IVPUSH Q12H [facility] Last Admin: 10/14/22 07:45 Dose: 40 mg Documented By: STEPHON Montelukast Sodium (Montelukast Sodium 10 Mg Tablet) 10 mg PO DAILY [facility] Last Admin: 10/14/22 07:45 Dose: 10 mg Documented By: STEPHON Non-Formulary Medication (Roflumilast [Daliresp]) 500 mcg PO BEDTIME [facility] Last Admin: 10/13/22 23:06 Dose: 500 mcg Documented By: BRIAN Comments: late due to pharmacy just brought up medication Ondansetron HCl (Ondansetron Hcl 4 Mg/2 Ml Vial) 4 mg IVPUSH Q8H PRN PRN Reason: Nausea and Vomiting Pharmacy Consult (Consult Rx Perform Med Rec) 1 each MISCELLANE ONCE PRN PRN Reason: Consult order Sodium Chloride (0.9 % Sodium Chloride Flush 3 Ml Syringe) 3 ml IVFLUSH QSHIFT [facility] Last Admin: 10/14/22 07:45 Dose: 3 ml Documented By: STEPHON Tamsulosin HCl (Tamsulosin Hcl 0.4 Mg Capsule) 0.4 mg PO BID [facility] Last Admin: 10/14/22 07:44 Dose: 0.4 mg Documented By: STEPHON Labs 10/14/22 05:57 10/13/22 05:35 Labs: Laboratory Results - last 24 hr 10/12/22 10/12/22 10/14/22 20:39 20:39 05:57 MCV 92.2 MCH 29.6 MCHC 32.1 RDW 12.7 Plt Count 403 H MPV 9.6 Absolute Nucleated RBC 0.000 Nucleated RBC % (auto) 0.0 Nasal Screen MRSA (PCR) NEGATIVE Nasal S. aureus Screen NEGATIVE Nasal MRSA/S.aureus Interp SEE NOTE Respiratory Panel Lara See Note Adenovirus (Rapid PCR) Not Detected B.pert (TEM-PCR) Not Detected B.parapertussis DNA PCR Not Detected C. pneumoniae DNA (PCR) Not Detected Coronavirus OC43 (PCR) Not Detected Coronavirus HKU1 (PCR) Not Detected Coronavirus 229E (PCR) Not Detected Coronavirus NL63 (PCR) Not Detected Human Metapneumovir PCR Not Detected Influenza A (RT-PCR) Not Detected Influenza B (RT-PCR) Not Detected M. pneumoniae (PCR) Not Detected Parainfluenza 1 (PCR) Not Detected Parainfluenza 2 (PCR) Not Detected Parainfluenza 3 (PCR) Not Detected Parainfluenza 4 (PCR) Not Detected RSV (PCR) Not Detected Entero/Rhino (PCR) Not Detected SARS-CoV-2 RNA (RT-PCR) Not Detected Microbiology Microbiology Results: Microbiology 10/12/22 19:22 Blood Culture - Preliminary Blood - Venous No growth after 24 hours. 10/12/22 18:45 Blood Culture - Preliminary Blood - Venous No growth after 24 hours. Assessment and Plan (1) Pneumonia: Status: Acute (2) COPD with acute exacerbation: Status: Acute (3) Respiratory failure: Status: Acute Plan 67-year-old male with a PMH significant for?COPD, asthma, BPH, RAYMOND on CPAP, paroxysmal AFib on Eliquis, and venous insufficiency who presents to the ED with?persistent shortness of breath. Patient was discharged from the hospital 3 days prior after being admitted and treated for a COPD exacerbation. Pt will be admitted to the hospital acute hypoxic respiratory failure in the setting of COPD exacerbation with likely superimposed multifocal pneumonia. Acute hypoxic respiratory failure in the setting of COPD exacerbation with likely superimposed multifocal pneumonia -treat underlying pneumonia, supplmental O2 goal of O2 sat 93, pulmonology advises continuing present care Copd exacerbation--supplemental oxygen, bronchodilators by neb, iv steroid multifocal pneumonia with atypical pattern, -Zosyn 10/12, -repeat CT in near future Sepsis d/t PNA, Zosyn as above Leukocytosis--in part d/t sepsis, and recent use of steroid, trending down BPH Continue tamsulosin RAYMOND CPAP at bedtime Paroxysmal AFib Continue Eliquis HLD Continue statin Full Code DVT Prophylaxis: On Eliquis Need for inpatient: IV Abx for sepsis, PNA, and oxygen for acute resp failure with hypoxia. Time Spent With Patient Time: Total time managing care of this patient today ____ minutes. Quality Stroke Does the patient have a stroke diagnosis?: No VTE Prior VTE?: No VTE Risk Level:: Medical - moderate - high VTE Device Contraindication: Treatment Not Indicated VTE Drug Contraindication: N/A - Med Ordered
[2022-10-14] MEDS: Albuterol/Iprat 2.5/0.5MG 3 ML AMPUL.NEB INHALE ×4 (08:11→19:08)
[2022-10-15] VITALS (8 sets, daily range): BP systolic 132–157; BP diastolic 61–72; PULSE 82–101; RESP 16–20; TEMP 36.1–36.9; O2SAT 93–96
[2022-10-15] MEDS: Piperacillin Sodium/Tazobactam 4.5 GM in 0.9 % Sodium Chloride 100 ML IV ×3 (06:02→17:41)
[2022-10-15] MEDS: guaiFEN/Codeine SF 200/20/10ML 10 ML LIQUID 5 ML PO ×3 (06:48→22:33)
[2022-10-15] MEDS: Albuterol/Iprat 2.5/0.5MG 3 ML AMPUL.NEB INHALE ×4 (07:48→20:06)
[2022-10-15] MEDS: methylPREDNISolone Sod Succ 40 MG/ML VIAL IVPUSH ×2 (07:52→20:51)
[2022-10-15] MEDS: buPROPion HCL 75 MG TABLET 150 MG PO ×2 (07:52→20:52)
[2022-10-15] MEDS: Apixaban 5 MG TABLET PO ×2 (07:53→20:51)
[2022-10-15] MEDS: Montelukast Sodium 10 MG TABLET PO (07:53)
[2022-10-15] MEDS: Furosemide 20 MG TABLET PO (07:53)
[2022-10-15] MEDS: Tamsulosin HCL 0.4 MG CAPSULE PO ×2 (07:53→20:51)
[2022-10-15] MEDS: Dronedarone HCl 400 MG TABLET PO ×2 (07:53→20:52)
[2022-10-15] MEDS: 0.9 % Sodium Chloride Flush 3 ML SYRINGE IVFLUSH ×2 (07:55→19:44)
[2022-10-15] MEDS: Atorvastatin Calcium 80 MG TABLET PO (08:01)
--- NOTE | 2022-10-15 09:02 | P.PNIM_ITS ---
Subjective Subjective Date of Service: 10/15/22 Interval History: f/u on PNA, copd exacerbation, hypoxia interval history: feels a little better, persistent cough, no fever Physical Exam Vital Signs: Vital Signs: Last Vital Signs Temp 97 F 10/15/22 07:05 Pulse 91 10/15/22 07:49 Resp 20 10/15/22 07:49 BP 157/72 H 10/15/22 07:05 Pulse Ox 94 10/15/22 07:05 O2 Del Method Nasal Cannula 10/15/22 07:05 O2 Flow Rate 1 10/15/22 07:05 BMI result Body Mass Index 31.9 Const: Other: General: AO X 3, no acute distress Resp: diffuse rhonchi and some wheeze, no access muslce use CVS: S1,S2,RRR GI: +BS, NT, no distention Skin: No rash Neuro: motor grossly intact Psych: appropriate affect Objective Data Active Medications Acetaminophen (Acetaminophen 325 Mg Tablet) 650 mg PO Q6H PRN PRN Reason: Pain, Mild (Pain Scale 1-3) Albuterol Sulfate (Albuterol Sulfate 90 Mcg 8 Gm Inhaler) 2 puff INHALE RQID [facility] Last Admin: 10/15/22 07:41 Dose: Not Given Documented By: PADMINI Non-Admin Reason: pt on duonebs Albuterol/Ipratropium (Albuterol/Iprat 2.5/0.5mg 3 Ml Ampul.Neb) 3 ml INHALE RQ4H WHILE AWAKE [facility] Last Admin: 10/15/22 07:48 Dose: 3 ml Documented By: PADMINI Apixaban (Apixaban 5 Mg Tablet) 5 mg PO BID [facility] Last Admin: 10/15/22 07:53 Dose: 5 mg Documented By: MARIBEL Atorvastatin Calcium (Atorvastatin Calcium 80 Mg Tablet) 80 mg PO DAILY [facility] Last Admin: 10/15/22 08:01 Dose: 80 mg Documented By: MARIBEL Bupropion HCl (Bupropion Hcl 75 Mg Tablet) 150 mg PO BID [facility] Last Admin: 10/15/22 07:52 Dose: 150 mg Documented By: MARIBEL Docusate Sodium (Docusate Sodium 100 Mg Capsule) 100 mg PO DAILY PRN PRN Reason: Constipation Dronedarone (Dronedarone Hcl 400 Mg Tablet) 400 mg PO BID [facility] Last Admin: 10/15/22 07:53 Dose: 400 mg Documented By: MARIBEL Furosemide (Furosemide 20 Mg Tablet) 20 mg PO DAILY [facility]; Protocol Last Admin: 10/15/22 07:53 Dose: 20 mg Documented By: MARIBEL Guaifenesin/Codeine Phosphate (Guaifen/Codeine Sf 200/20/10ml 10 Ml Liquid) 5 ml PO Q6H PRN PRN Reason: Cough Last Admin: 10/15/22 06:48 Dose: 5 ml Documented By: CAROL Piperacillin Sod/Tazobactam (Sod 4.5 gm/ Sodium Chloride) 100 mls @ 200 mls/hr IV Q6H [facility] Last Infusion: 10/15/22 06:32 Dose: 0 mls/hr Documented By: CAROL Methylprednisolone Sodium Succinate (Methylprednisolone Sod Succ 40 Mg/Ml Vial) 40 mg IVPUSH Q12H [facility] Last Admin: 10/15/22 07:52 Dose: 40 mg Documented By: MARIBEL Montelukast Sodium (Montelukast Sodium 10 Mg Tablet) 10 mg PO DAILY [facility] Last Admin: 10/15/22 07:53 Dose: 10 mg Documented By: MARIBEL Non-Formulary Medication (Roflumilast [Daliresp]) 500 mcg PO BEDTIME [facility] Last Admin: 10/14/22 20:21 Dose: 500 mcg Documented By: PANTERA Ondansetron HCl (Ondansetron Hcl 4 Mg/2 Ml Vial) 4 mg IVPUSH Q8H PRN PRN Reason: Nausea and Vomiting Pharmacy Consult (Consult Rx Perform Med Rec) 1 each MISCELLANE ONCE PRN PRN Reason: Consult order Sodium Chloride (0.9 % Sodium Chloride Flush 3 Ml Syringe) 3 ml IVFLUSH QSHIFT [facility] Last Admin: 10/15/22 07:55 Dose: 3 ml Documented By: MARIBEL Tamsulosin HCl (Tamsulosin Hcl 0.4 Mg Capsule) 0.4 mg PO BID [facility] Last Admin: 10/15/22 07:53 Dose: 0.4 mg Documented By: MARIBEL Labs 10/14/22 05:57 10/13/22 05:35 Microbiology Microbiology Results: Microbiology 10/12/22 19:22 Blood Culture - Preliminary Blood - Venous No growth after 48 hours. 10/12/22 18:45 Blood Culture - Preliminary Blood - Venous No growth after 48 hours. Assessment and Plan (1) Pneumonia: Status: Acute (2) COPD with acute exacerbation: Status: Acute (3) Respiratory failure: Status: Acute Plan 67-year-old male with a PMH significant for?COPD, asthma, BPH, RAYMOND on CPAP, paroxysmal AFib on Eliquis, and venous insufficiency who presents to the ED with?persistent shortness of breath. Patient was discharged from the hospital 3 days prior after being admitted and treated for a COPD exacerbation. Pt will be admitted to the hospital acute hypoxic respiratory failure in the setting of COPD exacerbation with likely superimposed multifocal pneumonia. Acute hypoxic respiratory failure in the setting of COPD exacerbation and superimposed multifocal pneumonia -treat underlying pneumonia, supplmental O2 goal of O2 sat 93, pulmonology advises continuing present care Copd exacerbation--supplemental oxygen, bronchodilators by neb, iv steroid and change to PO prednisone by tomorrow multifocal pneumonia with atypical pattern, -Zosyn 10/12, change to oral Augmentin or Ceftin 1day -repeat CT in near future -robitussin AC for cough Sepsis d/t PNA, Zosyn as above, sepsis POA and now resolved. Leukocytosis--in part d/t sepsis, and recent use of steroid, trending down BPH Continue tamsulosin RAYMOND CPAP at bedtime Paroxysmal AFib Continue Eliquis HLD Continue statin Full Code DVT Prophylaxis: On Eliquis Need for inpatient: IV Abx for sepsis, PNA, and oxygen for acute resp failure with hypoxia Time Spent With Patient Time: Total time managing care of this patient today ____ minutes. Quality Stroke Does the patient have a stroke diagnosis?: No VTE Prior VTE?: No VTE Risk Level:: Medical - moderate - high VTE Device Contraindication: Treatment Not Indicated VTE Drug Contraindication: N/A - Med Ordered
[2022-10-16] VITALS (8 sets, daily range): BP systolic 125–162; BP diastolic 60–72; PULSE 75–92; RESP 16–20; TEMP 36.3–36.7; O2SAT 93–98
[2022-10-16] MEDS: Piperacillin Sodium/Tazobactam 4.5 GM in 0.9 % Sodium Chloride 100 ML IV ×4 (01:06→18:39)
[2022-10-16] MEDS: 0.9 % Sodium Chloride Flush 3 ML SYRINGE IVFLUSH ×4 (01:07→20:24)
[2022-10-16 06:26] LABS: Hematocrit 39.2 % (42.0-52.0); Hemoglobin 12.7 g/dl (14.0-18.0); Mean Corpuscular HGB Conc 32.4 g/dl (31.0-36.0); Mean Corpuscular Hemoglobin 30.2 pg (27.0-33.0); Mean Corpuscular Volume 93.3 fL (80.0-98.0); Mean Platelet Volume 10.1 fL (9.4-12.4); Platelet Count 424 X10*3/uL (160-400); Red Cell Distribution Width 12.7 % (11.0-16.0); White Blood Count 16.1 X10*3/uL (4.8-10.8)
[2022-10-16 06:36] LABS: Anion Gap 11 (12-20); Blood Urea Nitrogen 29 mg/dL (9-16); Calcium 8.9 mg/dL (8.4-10.2); Carbon Dioxide 24 mmol/L (22-29); Chloride 108 mmol/L (96-108); Estimated Glomerular Filt Rate 51; Glucose Random 123 mg/dL (60-115); Potassium 4.6 mmol/L (3.3-5.1); Sodium 138 mmol/L (135-145)
[2022-10-16] MEDS: guaiFEN/Codeine SF 200/20/10ML 10 ML LIQUID 5 ML PO ×2 (07:09→17:06)
[2022-10-16] MEDS: methylPREDNISolone Sod Succ 40 MG/ML VIAL IVPUSH ×2 (07:43→20:24)
[2022-10-16] MEDS: Dronedarone HCl 400 MG TABLET PO ×2 (07:43→20:22)
[2022-10-16] MEDS: buPROPion HCL 75 MG TABLET 150 MG PO ×2 (07:43→20:22)
[2022-10-16] MEDS: Atorvastatin Calcium 80 MG TABLET PO (07:44)
[2022-10-16] MEDS: Furosemide 20 MG TABLET PO (07:44)
[2022-10-16] MEDS: Apixaban 5 MG TABLET PO ×2 (07:44→20:23)
[2022-10-16] MEDS: Montelukast Sodium 10 MG TABLET PO (07:44)
[2022-10-16] MEDS: Tamsulosin HCL 0.4 MG CAPSULE PO ×2 (07:44→20:23)
[2022-10-16] MEDS: Albuterol/Iprat 2.5/0.5MG 3 ML AMPUL.NEB INHALE ×4 (07:48→20:09)
[2022-10-16] MEDS: Benzonatate 100 MG CAPSULE PO ×3 (11:32→20:23)
--- NOTE | 2022-10-16 14:59 | HO.PM.IMPN ---
Subjective Subjective Date of Service: 10/16/22 Interval History: f/u on PNA, copd exacerbation, hypoxia Review of Systems still sob with minimun exceresion,has aggressive cough episodes , no fevers or chills Physical Exam Vital Signs: Vital Signs: Last Vital Signs Temp 97.7 F 10/16/22 07:42 Pulse 90 10/16/22 12:04 Resp 16 10/16/22 12:04 BP 135/62 10/16/22 07:42 Pulse Ox 93 10/16/22 07:42 O2 Del Method Nasal Cannula 10/16/22 07:42 O2 Flow Rate 1.0 10/16/22 07:42 BMI result Body Mass Index 31.9 General: AO X 3, no acute distress Resp:? diffuse rhonchi and some wheeze, no access muslce use CVS: S1,S2,RRR GI: +BS, NT, no distention Skin: No rash Neuro:? motor grossly intact Psych: appropriate affect Objective Data Active Medications Acetaminophen (Acetaminophen 325 Mg Tablet) 650 mg PO Q6H PRN PRN Reason: Pain, Mild (Pain Scale 1-3) Albuterol Sulfate (Albuterol Sulfate 90 Mcg 8 Gm Inhaler) 2 puff INHALE RQID [facility] Last Admin: 10/16/22 12:05 Dose: Not Given Documented By: JAKE Non-Admin Reason: Duplicate Order Albuterol/Ipratropium (Albuterol/Iprat 2.5/0.5mg 3 Ml Ampul.Neb) 3 ml INHALE RQ4H WHILE AWAKE [facility] Last Admin: 10/16/22 12:03 Dose: 3 ml Documented By: JAKE Apixaban (Apixaban 5 Mg Tablet) 5 mg PO BID [facility] Last Admin: 10/16/22 07:44 Dose: 5 mg Documented By: MARIBEL Atorvastatin Calcium (Atorvastatin Calcium 80 Mg Tablet) 80 mg PO DAILY [facility] Last Admin: 10/16/22 07:44 Dose: 80 mg Documented By: MARIBEL Benzonatate (Benzonatate 100 Mg Capsule) 100 mg PO TID [facility] Last Admin: 10/16/22 11:32 Dose: 100 mg Documented By: MARIBEL Bupropion HCl (Bupropion Hcl 75 Mg Tablet) 150 mg PO BID [facility] Last Admin: 10/16/22 07:43 Dose: 150 mg Documented By: MARIBEL Docusate Sodium (Docusate Sodium 100 Mg Capsule) 100 mg PO DAILY PRN PRN Reason: Constipation Dronedarone (Dronedarone Hcl 400 Mg Tablet) 400 mg PO BID [facility] Last Admin: 10/16/22 07:43 Dose: 400 mg Documented By: MARIBEL Furosemide (Furosemide 20 Mg Tablet) 20 mg PO DAILY [facility]; Protocol Last Admin: 10/16/22 07:44 Dose: 20 mg Documented By: MARIBEL Guaifenesin/Codeine Phosphate (Guaifen/Codeine Sf 200/20/10ml 10 Ml Liquid) 5 ml PO Q6H PRN PRN Reason: Cough Last Admin: 10/16/22 07:09 Dose: 5 ml Documented By: MARIBEL Piperacillin Sod/Tazobactam (Sod 4.5 gm/ Sodium Chloride) 100 mls @ 200 mls/hr IV Q6H [facility] Last Infusion: 10/16/22 12:03 Dose: 0 mls/hr Documented By: MARIBEL Loratadine (Loratadine 10 Mg Tablet) 10 mg PO DAILY [facility] Methylprednisolone Sodium Succinate (Methylprednisolone Sod Succ 40 Mg/Ml Vial) 40 mg IVPUSH Q12H [facility] Last Admin: 10/16/22 07:43 Dose: 40 mg Documented By: MARIBEL Montelukast Sodium (Montelukast Sodium 10 Mg Tablet) 10 mg PO DAILY [facility] Last Admin: 10/16/22 07:44 Dose: 10 mg Documented By: MARIBEL Non-Formulary Medication (Roflumilast [Daliresp]) 500 mcg PO BEDTIME [facility] Last Admin: 10/15/22 20:52 Dose: 500 mcg Documented By: VIKAS Ondansetron HCl (Ondansetron Hcl 4 Mg/2 Ml Vial) 4 mg IVPUSH Q8H PRN PRN Reason: Nausea and Vomiting Pharmacy Consult (Consult Rx Perform Med Rec) 1 each MISCELLANE ONCE PRN PRN Reason: Consult order Sodium Chloride (0.9 % Sodium Chloride Flush 3 Ml Syringe) 3 ml IVFLUSH QSHIFT [facility] Last Admin: 10/16/22 07:43 Dose: 3 ml Documented By: MARIBEL Tamsulosin HCl (Tamsulosin Hcl 0.4 Mg Capsule) 0.4 mg PO BID [facility] Last Admin: 10/16/22 07:44 Dose: 0.4 mg Documented By: MARIBEL Labs 10/16/22 05:55 10/16/22 05:55 Labs: Laboratory Results - last 24 hr 10/16/22 10/16/22 05:55 05:55 MCV 93.3 MCH 30.2 MCHC 32.4 RDW 12.7 Plt Count 424 H MPV 10.1 Absolute Nucleated RBC 0.000 Nucleated RBC % (auto) 0.0 Anion Gap 11 L Estim Creat Clear Calc 59.0 Estimated GFR 51 Random Glucose 123 H Calcium 8.9 Assessment and Plan (1) Pneumonia: Status: Acute (2) COPD with acute exacerbation: Status: Acute (3) Respiratory failure: Status: Acute Plan 67-year-old male with a PMH significant for?COPD, asthma, BPH, RAYMOND on CPAP, paroxysmal AFib on Eliquis, and venous insufficiency who presents to the ED with?persistent shortness of breath. Patient was discharged from the hospital 3 days prior after being admitted and treated for a COPD exacerbation. Pt will be admitted to the hospital acute hypoxic respiratory failure in the setting of COPD exacerbation with likely superimposed multifocal pneumonia. Acute hypoxic respiratory failure in the setting of COPD exacerbation and superimposed multifocal pneumonia -treat underlying pneumonia, supplmental O2 goal of O2 sat 93, pulmonology advises continuing present care Copd exacerbation--supplemental oxygen, bronchodilators by neb, iv steroid and change to PO prednisone by tomorrow multifocal pneumonia with atypical pattern, -Zosyn 10/12, change to oral Augmentin or Ceftin 1day -repeat CT in near future -robitussin AC for cough Sepsis d/t PNA, Zosyn as above, sepsis POA and now resolved. Leukocytosis--in part d/t sepsis, and recent use of steroid, trending down BPH Continue tamsulosin RAYMOND CPAP at bedtime Paroxysmal AFib Continue Eliquis HLD Continue statin Full Code DVT Prophylaxis: On Eliquis Need for inpatient: IV Abx for sepsis, PNA, and oxygen for acute resp failure with hypoxia Time Spent With Patient Time: Total time managing care of this patient today ____ minutes. Quality Stroke Does the patient have a stroke diagnosis?: No VTE Prior VTE?: No VTE Risk Level:: Medical - moderate - high VTE Device Contraindication: Treatment Not Indicated VTE Drug Contraindication: N/A - Med Ordered
[2022-10-17] MEDS: Piperacillin Sodium/Tazobactam 4.5 GM in 0.9 % Sodium Chloride 100 ML IV ×3 (00:19→11:32)
[2022-10-17 04:00] VITALS: BP 151/70; PULSE 82; RESP 16; TEMP 36.9; O2SAT 97
[2022-10-17] MEDS: guaiFEN/Codeine SF 200/20/10ML 10 ML LIQUID 5 ML PO ×2 (05:36→11:37)
[2022-10-17] MEDS: Albuterol/Iprat 2.5/0.5MG 3 ML AMPUL.NEB INHALE ×2 (07:39→11:27)
[2022-10-17 07:40] VITALS: PULSE 87; RESP 18; O2SAT 95
[2022-10-17 07:45] VITALS: BP 168/77; PULSE 78; RESP 22; TEMP 36.2; O2SAT 98
[2022-10-17] MEDS: buPROPion HCL 75 MG TABLET 150 MG PO (08:21)
[2022-10-17] MEDS: Atorvastatin Calcium 80 MG TABLET PO (08:21)
[2022-10-17] MEDS: Furosemide 20 MG TABLET PO (08:21)
[2022-10-17] MEDS: Apixaban 5 MG TABLET PO (08:21)
[2022-10-17] MEDS: Tamsulosin HCL 0.4 MG CAPSULE PO (08:21)
[2022-10-17] MEDS: predniSONE 20 MG TABLET 40 MG PO (08:21)
[2022-10-17] MEDS: Montelukast Sodium 10 MG TABLET PO (08:21)
[2022-10-17] MEDS: Dronedarone HCl 400 MG TABLET PO (08:21)
[2022-10-17] MEDS: Benzonatate 100 MG CAPSULE PO (08:22)
[2022-10-17] MEDS: 0.9 % Sodium Chloride Flush 3 ML SYRINGE IVFLUSH (08:22)
[2022-10-17] MEDS: Loratadine 10 MG TABLET PO (08:22)
[2022-10-17 11:28] VITALS: PULSE 86; RESP 18; O2SAT 94
[2022-10-17 11:33] VITALS: PULSE 104; PULSE 86; O2SAT 92; O2SAT 94
--- NOTE | 2022-10-17 11:37 | MHC.CM.PN ---
IMM 10/17/22 Male 67 Patient is discharged to home self care. He has arranged for transport home.
[2022-10-17] MEDS: Doxycycline Monohydrate 100 MG CAPSULE PO (12:12)
[2022-10-17] MEDS: Amoxicillin/Potassium Clav 875 MG TABLET PO (12:12)
--- NOTE | 2022-10-20 08:18 | PM.DS ---
DS: Providers Provider Date of Service: 10/17/22 Date of admission: 10/12/22 20:46 Date of discharge: 10/17/22 Primary care physician: Guilherme Mcallister MD Consults: 10/13/22 08:42 Consult to Pulmonology Routine Consulting Provider: [facility] Reason for consultation: multilobar pneumonia, copd Has provider been notified: No Attending physician on discharge: Bri Montesinos Discharging clinician: Bri Montesinos DS: Diagnosis Discharge Diagnosis (1) Pneumonia: Status: Acute (2) COPD with acute exacerbation: Status: Acute (3) Respiratory failure: Status: Acute DS: Summary Hospital Course Hospital Course: 67-year-old male with a PMH significant for?COPD, asthma, BPH, RAYMOND on CPAP, paroxysmal AFib on Eliquis, and venous insufficiency who presents to the ED with?persistent shortness of breath.? Patient was discharged from the hospital 3 days prior after being admitted and treated for a COPD exacerbation.? Patient was discharged on a 6-day course of doxycycline and on a prednisone taper.? Patient states he was compliant with his medications but had no improvement to his symptoms. Has been essentially bed-bound since discharge.? Patient complains of persistent shortness of breath with exertion.? Has had a cough occasionally productive of whitish sputum.? Patient also had a right-sided lower back pain with cough and deep inspiration.? He describes it as achy and gone whenever he expires.? Patient has been recording his O2 sats at home since discharge and notes they have been in the 80s to low 90s with a low of 84%.? Patient denies fever, chills, nausea, vomiting.? No abdominal pain.? Patient denies chest pain/pressure, palpitations. In the ED patient was afebrile, tachypneic up to 25, and satting at 90% O2 on RA. Labs were significant for leukocytosis of 15.7 (down from 22.2 on 10/09/2022), chronically elevated platelets of 479, ALT 79, alk-phos 134, procalcitonin 0.19. Electrolytes WNL.? Renal function baseline.? Lactic acid WNL at 1.0.? Coags WNL.? VBG unremarkable.? CXR showed subtle hazy patchy multifocal airspace opacities in the mid and lower lungs bilaterally. CT?of chest showed numerous bilateral nodular and patchy airspace opacities many with tree-in-bud distribution that favors an infectious/inflammatory process such as an atypical pneumonia.? It is suggested that patient have a follow-up CT to ensure adequate resolution to rule out underlying malignancy.? CT also found mediastinal and hilar lymphadenopathy that is likely reactive. EKG demonstrated normal sinus rhythm without evidence of ST elevations or depressions. Pt was treated with Solu-Medrol and DuoNebs. Pt will be admitted to the hospital acute hypoxic respiratory failure in the setting of COPD exacerbation with possible superimposed multifocal pneumonia. Hospital course: Patient came to the hospital because shortness of breath -admitted for acute hypoxemic respiratory failure secondary to COPD exacerbation, sepsis secondary to multifocal pneumonia: Patient was treated with IV antibiotic, steroids, nebs, antibiotics, blood cultures sent-with treatment patient seems to be improved significantly, blood culture negative at 48 hours. Patient's symptoms are also improved significantly-disease patient will be going home with p.o. steroids and antibiotics.patient does not qualify for home oxygen. due to multifocal pneumonia with atypical pattern,Please repeat chest imaging study in short term ( within 3-4 weeks)after completion of treatment and pulmonary follow-up. plan: Please complete the course of antibiotics for 7 days, also complete prednisone 4 days. due to multifocal pneumonia with atypical pattern,Please repeat chest imaging study in short term ( within 3-4 weeks)after completion of treatment and pulmonary follow-up. Above management discussed the patient detail and he understand and in agreement with above plan, time spent 50 minute. Time Spent with Patient Time attestation: Total time managing care of this patient today ____ minutes. Discharge coordination time: Greater than 30 minutes Quality: Safe Use of Opioids Does Pt have an Active Cancer Diagnosis on the Problem List?: No Quality: Stroke Does the patient have a stroke diagnosis?: No Physical Exam Vital Signs: Vital Signs: Last Vital Signs Temp 97.2 F 10/17/22 07:45 Pulse 86 10/17/22 11:28 Resp 18 10/17/22 11:28 BP 168/77 H 10/17/22 07:45 Pulse Ox 98 10/17/22 07:45 O2 Del Method Nasal Cannula 10/17/22 07:45 O2 Flow Rate 1 10/17/22 07:45 BMI result Body Mass Index 31.9 General: AO X 3, no acute distress Resp:? Air entry fair, no rales or wheezing. CVS: S1,S2,RRR GI: +BS, NT, no distention Skin: No rash Neuro:? motor grossly intact Psych: appropriate affect DS: Data Imaging Chest x-ray: Radiologist's impression: ITS Impressions Chest X-Ray 10/12/22 17:59 IMPRESSION: Subtle hazy patchy multifocal airspace opacities in the mid and lower lungs bilaterally. CT chest may be helpful for further assessment. Chest CT 10/12/22 20:57 IMPRESSION: 1. Numerous bilateral nodular and patchy airspace opacities, many with a tree-in-bud distribution. Multiplicity and distribution favors an infectious/inflammatory process such as an atypical pneumonia. However, a short-term follow-up diagnostic chest CT is highly recommended to ensure adequate resolution and rule out underlying malignancy in this patient with high risk factors as evident by a background of emphysematous changes. 2. Mediastinal and hilar lymphadenopathy, likely reactive. This could be follow-up with the above recommended CT. 3. Cholelithiasis but no evidence of acute cholecystitis in the included portions of the gallbladder. If clinically indicated, correlation with a right upper quadrant ultrasound could be obtained. Discharge Plan Discharge Anticipated Discharge Date/Time: 10/17/22 11:22 Patient Disposition: Home, Self-Care Discharge Diagnosis: Acute hypoxemic respiratory failure 2nd to COPD exacerbation, pneumonia. Referrals: Guilherme Mcallister MD [Primary Care Provider] - 1 Week Discharge Medications: New amoxicillin-pot clavulanate 875-125 mg tablet 1 tab PO BID Qty: 14 0RF doxycycline hyclate 100 mg capsule 100 mg PO BID Qty: 14 0RF prednisone 20 mg tablet 40 mg PO DAILY Qty: 8 0RF Continued furosemide 20 mg tablet 20 mg PO DAILY Qty: 90 3RF bupropion HCl 75 mg tablet 150 mg PO BID 90 Days Qty: 360 3RF Daliresp 500 mcg tablet 500 mcg PO DAILY Qty: 90 3RF montelukast 10 mg tablet 10 mg PO DAILY Qty: 90 3RF arformoterol [Brovana] 15 mcg/2 mL solution for nebulization 15 mcg inhalation BID Qty: 360 3RF atorvastatin 80 mg tablet 80 mg PO DAILY Qty: 90 3RF levalbuterol HCl 1.25 mg/3 mL solution for nebulization 1.25 mg inhalation BID 90 Days Qty: 540 3RF fluticasone propionate [Flovent HFA] 220 mcg/actuation Hfa Aerosol Inhaler 1 puff INHALATION Q12H tamsulosin [Flomax] 0.4 mg capsule 0.4 mg PO BID 90 Days Qty: 180 2RF Multaq 400 mg tablet 400 mg PO BID 90 Days Qty: 180 3RF Rx Instructions: must administer with a meal/food Tezspire 210 mg/1.91 mL (110 mg/mL) syringe 210 mg subcut Q4W albuterol sulfate 90 mcg/actuation HFA aerosol inhaler 2 puff inhalation QID Eliquis 5 mg tablet 5 mg PO BID 90 Days Qty: 180 3RF (DME) nebulizers Misc See Rx Instructions .Route Rx Instructions: As directed (DME) CPAP Machine/Device Device See Rx Instructions .Route Rx Instructions: As directed budesonide 0.5 mg/2 mL suspension for nebulization 0.5 mg inhalation BID Qty: 360 3RF Held prednisone 10 mg tablets,dose pack See Taper PO DIRECTED Qty: 21 0RF Hold Instructions: Resume on 10/23/22. Taper: Prednisone 40 mg daily for 3 Days and 0 Hour 30 mg daily for 3 Days and 0 Hour 20 mg daily for 3 Days and 0 Hour 10 mg daily for 3 Days and 0 Hour Discontinued doxycycline monohydrate 100 mg Capsule 100 mg PO Q12H Qty: 9 0RF Discharge Orders: Discharge Order (Routine); Ordered 10/17/22 Ordered By: Bri Montesinos Diet: Advance to usual diet Activity on Discharge: As tolerated Stand Alone Forms: Patient Portal Discharge page Care Plan Goals: Patient came to the hospital because shortness of breath -admitted for acute hypoxemic respiratory failure secondary to COPD exacerbation, sepsis secondary to multifocal pneumonia: Patient was treated with IV antibiotic, steroids, nebs, antibiotics, blood cultures sent-with treatment patient seems to be improved significantly, blood culture negative at 48 hours. Patient's symptoms are also improved significantly-disease patient will be going home with p.o. steroids and antibiotics.patient does not qualify for home oxygen. due to multifocal pneumonia with atypical pattern,Please repeat chest imaging study in short term ( within 3-4 weeks)after completion of treatment and pulmonary follow-up. Health Concerns: As above. Plan of Treatment: As above. Assessment: As above. Patient Instructions: COPD (Chronic Obstructive Pulmonary Disease) (DC), Pneumonia (DC) Discharge Date/Time: 10/17/22 14:26
== END 2022-10-17 14:26 | disposition home or self-care (01) | DRG 871 ==
LOC: HO.ED 19:06 → HO.EDOVER 21:03 → HO.S3 23:36
PROVIDERS: Internal Medicine; Physician Assistant; Physician Assistant Medical; Admitting Provider Student in an Organized Health Care Education/Training Program; Emergency Provider Emergency Medicine; PCP Family Medicine; Visit Provider Internal Medicine
DX: A41.9 Sepsis, unspecified organism (principal); J18.9 Pneumonia, unspecified organism; J96.01 Acute respiratory failure with hypoxia; J44.0 Chronic obstructive pulmonary disease with (acute) lower respiratory infection; J44.1 Chronic obstructive pulmonary disease with (acute) exacerbation; I48.0 Paroxysmal atrial fibrillation; N40.0 Benign prostatic hyperplasia without lower urinary tract symptoms; E78.5 Hyperlipidemia, unspecified; G47.33 Obstructive sleep apnea (adult) (pediatric); Z79.01 Long term (current) use of anticoagulants; Z87.891 Personal history of nicotine dependence; Z91.041 Radiographic dye allergy status; Z79.51 Long term (current) use of inhaled steroids; Z79.899 Other long term (current) drug therapy
CPT/HCPCS: 36415; 71046; 71260; 80048; 80053; 82803; 83605; 83735; 84100; 84145; 84484; 85025; 85027; 85610; 85730; 87040; 87633; 87635; 87640; 87641; 93005; 94640; 99285; J2543; J2920; J2930; Q9967

== ENCOUNTER → 2022-10-26 10:04 | Outpatient (BNVA) | payer MEDICARE, OTHER, SELFPAY | PROVIDERS: PCP Family Medicine; Visit Provider Nurse Practitioner Family | DX: J44.1 Chronic obstructive pulmonary disease with (acute) exacerbation (principal); R91.8 Other nonspecific abnormal finding of lung field; J31.0 Chronic rhinitis; G47.33 Obstructive sleep apnea (adult) (pediatric); Z99.89 Dependence on other enabling machines and devices | CPT/HCPCS: 99212 ==

== ENCOUNTER 2022-12-18 10:12 | Outpatient (REF) | payer MEDICARE, OTHER, SELFPAY ==
--- NOTE | ~2022-12-18 | CT_ITS ---
EXAMINATION: CT CHEST WITHOUT CONTRAST CLINICAL INFORMATION: Pulmonary nodules COMPARISON: Previous chest CT September 2022 TECHNIQUE: Multidetector volumetric CT imaging of the chest was done. Axial MIP volume rendering provided. Sagittal and coronal reformatted images were obtained. This CT examination was performed using dose optimization techniques as appropriate, variously including the following: *Automated exposure control *Adjustment of mA and/or kV according to patient size (this includes techniques or standardized protocols for targeted exams where dose is matched to indication/reason for exam; i.e. extremities or head) *Use of iterative reconstruction technique DLP: 200 mGy-cm FINDINGS: LUNGS: There is biapical pleural and parenchymal scarring. Previously identified pulmonary nodules September 2022 appear decreased in size and number. There is still evidence of mild residual airways disease with scattered areas of bronchial wall thickening, increased peribronchial attenuation and clustered peribronchial nodules. Largest areas are seen in the right upper lobe axial image 282 series 5. There are several small solitary calcified and noncalcified pulmonary nodules that are stable, largest measuring 3 mm in the peripheral or subpleural left lower lobe axial image 532 series 5. No endobronchial or endotracheal lesion. MEDIASTINUM: There isatherosclerotic disease with coronary artery, aortic and aortic valve calcification. Mediastinum is otherwise normal. CORONARY ARTERY CALCIFICATION: Mild to moderate PLEURA: There is no pleural effusion. No pleural mass or thickening. AXILLA: No lymphadenopathy. UPPER ABDOMEN: Gallstones. Small calcifications in the liver probably from old granulomatous disease. Thinning or scarring of the left kidney. OSSEOUS STRUCTURES: Degenerative changes. CT/CT chest wo IV con IMPRESSION: Interval improvement in pulmonary nodules and airways disease compared to September 2022 exam. Fleischner guidelines were followed.
== END 2022-12-18 10:13 | disposition home or self-care (01) ==
LOC: HO.CT 10:12
PROVIDERS: PCP Family Medicine; Visit Provider Nurse Practitioner Family
DX: R91.8 Other nonspecific abnormal finding of lung field (principal)
CPT/HCPCS: 71250

== ENCOUNTER 2022-12-20 09:27 | Outpatient (AMB) | payer MEDICARE, OTHER, SELFPAY ==
[2022-12-20 09:38] VITALS: BP 160/62; PULSE 89; BMI 32.6
--- NOTE | 2022-12-20 09:38 | A.OFFVIS_ITS ---
Intake Vital Signs 12/20/22 09:38 12/20/22 12:03 Height 5 ft 9 in Weight 220 lb 7.396 oz BMI 32.6 BP 160/62 H 132/60 Blood Pressure Location Lt brachial Lt brachial Position Sitting Sitting Pulse 89 Intake Visit Reasons: 6 MON FUP (KM PT R/S BY US 7.13) Intake Note: 6 month f/up Steam Brush Operator Required: No Allergies watermelon [WATERMELON] Allergy (Severe, Verified 12/20/22 09:45) ANAPHYLAXIS Iodinated Contrast Media [IV CONTRAST] Allergy (Intermediate, Verified 12/20/22 09:45) LIGHT HEADED AND SHORTNESS OF BREATH Medication List - Last Reconciled 12/20/22 by IMELDA North albuterol sulfate 90 mcg/actuation 2 puffs inhalation QID apixaban (Eliquis) 5 mg PO BID 90 days arformoterol (Brovana) 15 mcg (2 mL) inhalation BID atorvastatin 80 mg PO DAILY budesonide 0.5 mg (2 mL) inhalation BID bupropion HCl 150 mg (2 x 75 mg) PO BID 90 days CPAP (CPAP Machine/Device) As directed dronedarone (Multaq) 400 mg PO BID 90 days fluticasone propionate 220 mcg/actuation (Flovent HFA) 1 puff inhalation Q12H furosemide 20 mg PO DAILY levalbuterol HCl 1.25 mg (3 mL) inhalation BID 90 days montelukast 10 mg PO DAILY nebulizers As directed prednisone See Taper mg PO DIRECTED prednisone 10 mg PO DIRECTED roflumilast (Daliresp) 500 mcg PO DAILY tamsulosin (Flomax) 0.4 mg PO BID 90 days tezepelumab-ekko (Tezspire) 210 mg subcut Q4W HPI 6 MON FUP (KM PT R/S BY US 7.13) HPI Details Kiran is a 66-year-old male with past medical history of hyperlipidemia, carotid stenosis, obstructive sleep apnea with CPAP use, paroxysmal AFib who presents for follow-up. Today he reports he was in the hospital recently with pneumonia. At this time he feels his pneumonia has fully resolved. He denies any known recurrent atrial fibrillation since last visit. No heart palpitations, dizziness, presyncope, syncope. No PND, orthopnea or edema. No chest discomfort at rest or with activity. He reports occasional epistaxis which he describes as mild. No other signs of bleeding. Taking meds as directed. Continues on Multaq. [facility] Medical History AC (acromioclavicular) joint arthritis Asthma-COPD overlap syndrome BPH (benign prostatic hyperplasia) Chronic lung disease Chronic rhinitis COPD (chronic obstructive pulmonary disease) Echocardiogram abnormal Edema leg Encounter for screening for lung cancer Hyperlipidemia RAYMOND on CPAP PAF (paroxysmal atrial fibrillation) (~2017) Pulmonary nodules Seasonal allergies Tubular adenoma of colon (~2005) Venous insufficiency of both lower extremities Surgical History History of appendectomy History of cataract (~2009) History of colonoscopy History of esophagogastroduodenoscopy (EGD) History of nasal septoplasty (~2008) History of repair of right rotator cuff (~2017) History of total left hip replacement (~2019) Family History Father No problems noted. Mother CAD (coronary artery disease) CHF (congestive heart failure) HTN (hypertension) Brother No problems noted. Brother No problems noted. Sister No problems noted. Sister No problems noted. Sister No problems noted. Son No problems noted. Son No problems noted. Social History Household Members: Spouse Housing: House Do you presently have visiting nurse or other home services: No Alcohol intake: current Alcohol intake frequency: holidays/special occasions only Patient Tobacco Use Status: Former Tobacco user Tobacco use type: Cigarette Years Smoked: 40 years e-Cigarette/Vaping Use: Former Use Second Hand Smoke Exposure: No service: Yes Current occupational status: retired Review of Systems Const All systems reviewed & are unremarkable except as noted in HPI and below ENT Reports dizziness Card Denies chest pain, Denies chest pain at rest, Denies chest pain with activity, Denies rapid heart rate, Denies pedal edema, Denies edema, Denies leg edema, Denies lightheadedness, Denies palpitations, Denies dyspnea, Denies dyspnea on exertion and Denies orthopnea Resp Denies cough, Denies dyspnea and Denies dyspnea on exertion GI Denies hematochezia and Denies change in stool character Musc Denies abnormal gait, Reports limited range of motion, Reports muscle cramps, Denies muscle weakness, Denies numbness, Denies radiating pain into limb, Denies stiffness and Denies tingling Neuro Denies abnormal gait, Reports dizziness, Denies numbness and Denies tingling Endo Denies palpitations Physical Exam Vital Signs: Last Vital Signs Pulse 89 12/20/22 09:38 BP 160/62 H 12/20/22 09:38 BMI result Body Mass Index 32.6 Const General: cooperative, healthy appearing, comfortable and no acute distress Orientation/consciousness: patient oriented x3 Neck Neck: Yes normal visual inspection Resp Effort & Inspection: normal respiratory effort Auscultation: clear to auscultation bilaterally, no crackles, no rales, no rhonchi and no wheezes Cardio Jugular venous distension: no JVD Rate: regular rate Rhythm: regular rhythm Heart sounds: S1 normal heart sound present, S2 normal heart sound present, no murmurs and no rubs Neuro General: patient oriented x3 Extrem General: Yes normal to inspection, No no pedal edema and No calf tenderness Psych Appearance: grossly normal Mental Status: mental status grossly normal Speech and movement: Normal speech and movement present Office Procedures EKG Details: Today, read by me, normal sinus rhythm, nonspecific T-wave abnormality, rate 89, QTC 438 millisecond [id number], Complete Assessment & Plan Assessment & Plan (1) PAF (paroxysmal atrial fibrillation): Onset Date: ~2017 Code(s): I48.0 - Paroxysmal atrial fibrillation Plan: History of paroxysmal atrial fibrillation. Currently suppressed with use of Multaq. EKG done today showing sinus rhythm rate 89, QTC 438 milliseconds. No reports of chest discomfort or heart palpitations. He continues on Eliquis for anticoagulation. Occasional mild epistaxis. No other bleeding issues. Recommend twice yearly kidney function tests. Labs done 10/16/2022 shows creatinine 1.4. Continue current management. Office EKG in 3 months. Cardiac follow-up and EKG in 6 months (2) Carotid stenosis, bilateral: Code(s): I65.23 - Occlusion and stenosis of bilateral carotid arteries Plan: History of carotid stenosis. Last carotid ultrasound 01/18/22 shows right ICA 50- 79% stenosis, left ICA 0- 49% stenosis. No neurological changes/symptoms reported. He is on Eliquis. He is on atorvastatin 80 mg daily. Labs done on 07/27/2021 show LDL 56. Labs done 06/22/2022 shows LDL 80. Repeat Lipid order in place from his PCP. Recheck of carotid ultrasound due 1 year from last, order is in place.. Following with Dr Mello.. (3) Venous insufficiency of both lower extremities: Code(s): I87.2 - Venous insufficiency (chronic) (peripheral) Plan: Bilateral lower leg edema from venous insufficiency. He describes having vein ablation in the past. He continues to have stable chronic edema without recent change. Following with Dr Mello (4) RAYMOND on CPAP: Code(s): G47.33 - Obstructive sleep apnea (adult) (pediatric); Z99.89 - Dependence on other enabling machines and devices Coding Level of Care Code Est Pt Level 4 (74282) Diagnoses PAF (paroxysmal atrial fibrillation) I48.0 Carotid stenosis, bilateral I65.23 Venous insufficiency of both lower extremities I87.2 RAYMOND on CPAP G47.33; Z99.89 CPT Codes EKG - CPT: 09644-[id number], Complete ([id number]) Time Spent (min) 26 Comment Chart review, documentation, interview assessment
[2022-12-20 12:03] VITALS: BP 132/60
== END 2022-12-20 10:23 | disposition home or self-care (01) ==
PROVIDERS: PCP Family Medicine; Referring Provider Family Medicine; Visit Provider Nurse Practitioner Family
DX: I48.0 Paroxysmal atrial fibrillation (principal); I65.23 Occlusion and stenosis of bilateral carotid arteries; I87.2 Venous insufficiency (chronic) (peripheral); G47.33 Obstructive sleep apnea (adult) (pediatric); Z99.89 Dependence on other enabling machines and devices
CPT/HCPCS: 93010; 99214

== ENCOUNTER → 2022-12-20 09:27 | Outpatient (BNVA) | payer MEDICARE, OTHER, SELFPAY | PROVIDERS: PCP Family Medicine; Referring Provider Family Medicine; Visit Provider Nurse Practitioner Family | DX: I48.0 Paroxysmal atrial fibrillation (principal); I87.2 Venous insufficiency (chronic) (peripheral); I65.23 Occlusion and stenosis of bilateral carotid arteries; G47.33 Obstructive sleep apnea (adult) (pediatric); Z99.89 Dependence on other enabling machines and devices | CPT/HCPCS: 93005; 99212 ==

== ENCOUNTER 2022-12-27 10:30 | Outpatient (AMB) | payer MEDICARE, OTHER, SELFPAY ==
--- NOTE | 2022-12-27 10:31 | A.OFFPC_ITS ---
Vital Signs 12/27/22 10:32 Height 5 ft 9 in Weight 221 lb 8 oz BMI 32.7 BP 140/62 H Blood Pressure Location Lt brachial Position Sitting Respiration 12 Pulse 92 Pulse Source Pulse Oximeter Temp 98.1 F Temp Source Temporal Artery Scan Pulse Oximetry (%) 95 Oxygen Delivery Method Room Air Intake Visit Reasons: f/u hyperlipidemia Loft Patternmaker Required: No Accompanied by: Self / Same As Patient Allergies watermelon [WATERMELON] Allergy (Severe, Verified 12/27/22 10:39) ANAPHYLAXIS Iodinated Contrast Media [IV CONTRAST] Allergy (Intermediate, Verified 12/27/22 10:39) LIGHT HEADED AND SHORTNESS OF BREATH Medication List - Last Reconciled 12/27/22 by Guilherme Mcallister MD albuterol sulfate 90 mcg/actuation 2 puffs inhalation QID apixaban (Eliquis) 5 mg PO BID 90 days arformoterol (Brovana) 15 mcg (2 mL) inhalation BID atorvastatin 80 mg PO DAILY budesonide 0.5 mg (2 mL) inhalation BID bupropion HCl 150 mg (2 x 75 mg) PO BID 90 days CPAP (CPAP Machine/Device) As directed dronedarone (Multaq) 400 mg PO BID 90 days fluticasone propionate 220 mcg/actuation (Flovent HFA) 1 puff inhalation Q12H furosemide 20 mg PO DAILY levalbuterol HCl 1.25 mg (3 mL) inhalation BID 90 days montelukast 10 mg PO DAILY nebulizers As directed roflumilast (Daliresp) 500 mcg PO DAILY tamsulosin (Flomax) 0.4 mg PO BID 90 days tezepelumab-ekko (Tezspire) 210 mg subcut Q4W Tobacco use date assessed: 06/28/22 Fall risk assessment: No Falls in past year Last assessed Fall Risk: 12/27/22 Dental Screening Dental Screen Date: 12/27/22 Did you have a dental visit in the last 12 months?: Yes Did you have a dental problem in the last 6 months where you did not have access to dental care?: No Was dental information given to patient?: Patient has dentist HPI f/u hyperlipidemia HPI Details 67 y/o male presents to f/u hyperlipidemia. No recent lipid panel to review. Blood pressure today elevated at 140/62 and has been elevated before in the past. He reports he does not want to take any blood pressure medications. He reports he has cut back on his salt intake. [facility] Medical History AC (acromioclavicular) joint arthritis Asthma-COPD overlap syndrome BPH (benign prostatic hyperplasia) Chronic lung disease Chronic rhinitis COPD (chronic obstructive pulmonary disease) Echocardiogram abnormal Edema leg Encounter for screening for lung cancer Hyperlipidemia RAYMOND on CPAP PAF (paroxysmal atrial fibrillation) (~2017) Pulmonary nodules Seasonal allergies Tubular adenoma of colon (~2005) Venous insufficiency of both lower extremities Surgical History History of appendectomy History of cataract (~2009) History of colonoscopy History of esophagogastroduodenoscopy (EGD) History of nasal septoplasty (~2008) History of repair of right rotator cuff (~2017) History of total left hip replacement (~2019) Family History Father No problems noted. Mother CAD (coronary artery disease) CHF (congestive heart failure) HTN (hypertension) Brother No problems noted. Brother No problems noted. Sister No problems noted. Sister No problems noted. Sister No problems noted. Son No problems noted. Son No problems noted. Social History Household Members: Spouse Housing: House Do you presently have visiting nurse or other home services: No Alcohol intake: current Alcohol intake frequency: holidays/special occasions only Patient Tobacco Use Status: Former Tobacco user Tobacco use type: Cigarette Years Smoked: 40 years e-Cigarette/Vaping Use: Former Use Second Hand Smoke Exposure: No service: Yes Current occupational status: retired Cognitive needs: No Hearing needs: No Vision needs: No Questionnaire Thrive Questionnaire Date Thrive assessed: 06/28/22 STEVEN-7 AMB Questionnaire STEVEN-7 Date STEVEN - 7 assessed: 06/28/22 Source: Developed by Drs. Kwame William, Cayla Candelario, Damian Lee and colleagues, with an educational maria g from [employer]. Physical exam (Primary Care) Vital Signs: Last Vital Signs Temp 98.1 F 12/27/22 10:32 Pulse 92 12/27/22 10:32 Resp 12 12/27/22 10:32 BP 140/62 H 12/27/22 10:32 Pulse Ox 95 12/27/22 10:32 Oxygen Delivery Method Room Air 12/27/22 10:32 BMI result Body Mass Index 32.7 Tobacco/Smoking Status: Tobacco use Status Tobacco use date assessed 06/28/22 12/27/22 10:44 Patient Tobacco Use Status Former Tobacco user 12/27/22 10:44 Tobacco use type Cigarette 12/27/22 10:44 e-Cigarette/Vaping Use Former Use 12/27/22 10:44 Thrive Assessment: Date of Thrive Assessment Date Thrive assessed 06/28/22 12/27/22 10:44 Assessment and Plan Assessment & Plan (1) Hypertension: Code(s): I10 - Essential (primary) hypertension Plan: Blood pressures are fairly consistently too high Patient was resistant to starting a blood pressure medication as he is on many medications and he is on a fixed income We discussed using lisinopril which should be fairly affordable Will follow-up in a month to see how this is affecting his blood pressure. (2) Hyperlipidemia: Code(s): E78.5 - Hyperlipidemia, unspecified Plan: Patient is on atorvastatin 80 mg daily Following lipids but he has not had these drawn yet. He will get them drawn prior to her next visit Medications: New lisinopril 20 mg PO DAILY 90 tabs 3RF 90 days Coding Level of Care Code Est Pt Level 3 (01230) Diagnoses Hypertension I10 Hyperlipidemia E78.5
[2022-12-27 10:32] VITALS: BP 140/62; PULSE 92; RESP 12; TEMP 36.7; O2SAT 95; BMI 32.7
== END 2022-12-27 11:40 | disposition home or self-care (01) ==
PROVIDERS: PCP Family Medicine; Visit Provider Family Medicine
DX: I10 Essential (primary) hypertension (principal); E78.5 Hyperlipidemia, unspecified
CPT/HCPCS: 99213

== ENCOUNTER 2023-01-03 14:08 | Outpatient (AMB) | payer MEDICARE, OTHER, SELFPAY ==
--- NOTE | 2023-01-03 14:13 | A.OFFVIS_ITS ---
Intake Vital Signs 01/03/23 14:18 Height 5 ft 9 in Weight 217 lb BMI 32.0 Pulse 88 Pulse Source Pulse Oximeter Pulse Oximetry (%) 92 Oxygen Delivery Method Room Air Intake Visit Reasons: Obstructive sleep apnea [employer]ental [employer] Manager Required: No Allergies watermelon [WATERMELON] Allergy (Severe, Verified 01/03/23 14:20) ANAPHYLAXIS Iodinated Contrast Media [IV CONTRAST] Allergy (Intermediate, Verified 01/03/23 14:20) LIGHT HEADED AND SHORTNESS OF BREATH HPI HPI Comments History of Present Illness Details Patient is a 67 y/o man with history of underlying pulmonary nodules, RAYMOND on CPAP, asthma COPD overlap syndrome, tracheobronchomalacia in addition to hypersensitivity pneumonitis due to multiple exposures especially at while he was working. He has been using CPAP therapy the CPAP therapy has been very affecting beneficial. The CPAP therapy he uses every night for more than 4 hours. Recently he did have a CT scan of his chest for the lung cancer screening program and is nodular densities have resolved which is very reassuring. He is scheduled for the CT scan in a year's time. I am hopeful that we can decrease the amount of Xopenex that he is using and then hopefully decrease the amount of budesonide that he is using. His CPAP therapy has been affecting beneficial. He has been getting supplies through [employer] now regularly. His CPAP therapy he does use for more than 4 hours a night. He has lost about 30 lb. He still on Daliresp that is likely contributing to that. If he continues doing well we can also consider decreasing the or stopping the Daliresp in the future. 07/27/2021 the patient is here for a pulmonary follow-up visit. For the last 2 weeks he has been having hard time with his breathing. Has had significant coughing spells. Moderate to severe. Has been expectorating some phlegm yellowish in color. Has been very wheezing. Has had it is a lot of ch est tightness. Has been using his nebulizer 4 times a day if not more. He has not been taking any prednisone. He continues on the Fasenra injection. He also continues with CPAP at nighttime. The CPAP therapy continues to be affecting beneficial. On examination today he has significant wheezing. He opted not a getting a breathing treatment since he already had 1 just prior to coming in. We did provide him with Solu-Medrol. Will do additional blood work to assess his eosinophilic levels and IgE levels. At this point is not clear if this is allergic related or infectious. In the meantime will treating for a bacterial infection with antibiotics. 08/17/2021 the patient is here for a pulmonary follow-up visit. He is finally feeling better. He completed the steroids. He continues on his current respiratory regimen. He is currently on Dupixent. Will have to see how he response to the Dupixent as he failed Fasenra. I am hopeful that his symptoms continue to improve. I did discuss with him to try the picks at least for 6 months. if the patient continues to be symptomatic could also consider TSLP inhibitor. the patient continues uses CPAP without any issues. He does use it for more than 4 hours a night. He has been getting supplies regularly. 01/02/2022 the patient is here for sick visit. He has been having worsening respiratory symptoms for the last for 5 days. Significant shortness of breath and wheezing. Moderate to severe. He continues uses nebulized therapy. In addition to that he has been using Dupixent every 2 weeks. Seems like he has had multiple exacerbations. He is also off the prednisone completely. I did reach out to his precision devices inspector/tester. Currently he does get allergy shots. He has a follow-up visit in February. If he continues to be symptomatic he may need to consider switching to a different biologic medications such as Tezspire. in the office he does have significant wheezing. I did provide him with to Xopenex nebs and 1 ipratropium neb. He also received 125 mg of Solu- Medrol. Patient will start antibiotic and also prednisone taper. If the patient has no better he is to follow-up and call the office. he does continue to use CPAP. However, with difficulty breathing and the coughing he has had a hard time keeping the mask on. I did advise him to wait till he felt better to put on CPAP. 02/15/2022 the patient is here for a pulmonary follow-up visit. He is feeling a lot better now. The patient did require Solu-Medrol and prednisone during the last Visit. Unfortunately, he does continue on some prednisone. He taper down to 10 mg. once he is up the prednisone his symptoms will return. Therefore I will make sure for him to have prednisone to continue therapy. He did follow-up with his precision devices inspector/tester and he will be starting a new biologic medication, Tezspire, in 2 weeks. I am hopeful that once he starts the new biologic therapy that we can see about weaning him down further from the prednisone. Will have to assess for adrenal insufficiency due to his chronic prednisone use. The patient does continue to use CPAP well. CPAP therapy continues to be affecting beneficial. He does use it for more than 4 hours a night. If he continues with his current respiratory regimen. He did also undergo a CT scan of the chest at [facility] the summer as part of the lung cancer screening program and his CT scan was stable and will be having another CT scan in a year's time. 05/24/2022 the patient has a telephone visit today. Several days ago he started developing worsening cough in addition to fevers. He did test positive for COVID about 3-4 days ago. He was not placed on PACS Flovent. Currently he is on his respiratory therapy. He is also on his baseline prednisone. He is complaining of productive cough with green mucus. Moderate severity. His fever is a little better. He has been having significant wheezing and chest tightness. He has been using his nebulizer therapy throughout the day. Will go ahead and place him on a prednisone taper in addition to start him on Levaquin. He knows the adverse effects including tendinitis. If he has any adverse effects he is to call. Otherwise if his respiratory status gets worse need to go to the ER for further evaluation. 09/13/2022 the patient is here for pulmonary follow-up visit. Overall the patient is doing better. He has been on the test prior injections now for few months and appear to be working better for him. He still can get off the prednisone. He recently ran out of prednisone his breathing got worse again. He had been down to 10 mg alternating with 20 mg daily. I did see him in a prednisone for him to slowly wean down from 20 mg which I am hopeful that he can wean slowly down to 10 mg in due time. He will continue with current respiratory therapy. He continues uses CPAP at nighttime. CPAP therapy continues to be affecting beneficial and he does use it for more than 4 hours a night. 01/03/2023 the patient is here for pulmonary follow-up visit. The patient had been hospitalized with worsening respiratory symptoms. He had been on a prednisone taper. However, now is completely off. He has been using his nebulized therapy in addition to his respiratory medications. Continues to have chest tightness and wheezing. He is also having coughing. Moderate severity. The patient has been on multiple medication now on biologic therapy. The only other option to try to improve his significant bronchospasms would be to try theophylline. He does have a history of atrial fibrillation so and to be careful with the dose. Will start him on a very small dose and see if he can tolerated. The hope is with the low-dose theophylline he may be able to be on less amount of prednisone. The patient also continues uses CPAP. He has not been getting supplies the of from the [employer], I did send a message to the [employer] and did fill out another script. The CPAP therapy has been very affecting beneficial for him. He does use it for more than 4 hours. However, without supplies the patient is not able to use it effectively. In the office we also reviewed his recent CT scan that he had 12/18/2022. There is interval improvement of the significant bronchiolitis and nodular densities appreciated on the CT scan back in he was in the hospital in September/October. [facility] Medical History AC (acromioclavicular) joint arthritis Asthma-COPD overlap syndrome BPH (benign prostatic hyperplasia) Chronic lung disease Chronic rhinitis COPD (chronic obstructive pulmonary disease) Echocardiogram abnormal Edema leg Encounter for screening for lung cancer Hyperlipidemia RAYMOND on CPAP PAF (paroxysmal atrial fibrillation) (~2017) Pulmonary nodules Seasonal allergies Tubular adenoma of colon (~2005) Venous insufficiency of both lower extremities Surgical History History of appendectomy History of cataract (~2009) History of colonoscopy History of esophagogastroduodenoscopy (EGD) History of nasal septoplasty (~2008) History of repair of right rotator cuff (~2017) History of total left hip replacement (~2019) Family History Father No problems noted. Mother CAD (coronary artery disease) CHF (congestive heart failure) HTN (hypertension) Brother No problems noted. Brother No problems noted. Sister No problems noted. Sister No problems noted. Sister No problems noted. Son No problems noted. Son No problems noted. Social History Household Members: Spouse Housing: House Do you presently have visiting nurse or other home services: No Alcohol intake: current Alcohol intake frequency: holidays/special occasions only Patient Tobacco Use Status: Former Tobacco user Tobacco use type: Cigarette Years Smoked: 40 years e-Cigarette/Vaping Use: Former Use Second Hand Smoke Exposure: No service: Yes Current occupational status: retired Cognitive needs: No Hearing needs: No Vision needs: No Review of Systems Const Reports weight gain Eyes Denies change in vision ENT Reports nasal congestion, Reports nasal discharge and Reports sore throat Card Denies chest pain and Reports dyspnea on exertion Resp Denies change in phlegm color, Denies chest congestion, Reports cough, Denies hemoptysis, Denies excessive phlegm production, Reports dyspnea on exertion and Reports wheezing GI Reports no additional complaints Musc Reports no additional complaints Skin/Breast Denies rash Neuro Reports no additional complaints Psych Reports no additional complaints Endo Denies heat intolerance Kelvin/Lymph Denies easy bleeding, Denies easy bruising and Denies lymphadenopathy Aller/Immun Reports wheezing Physical Exam Vital Signs: Last Vital Signs Pulse 88 01/03/23 14:18 Pulse Ox 92 01/03/23 14:18 Oxygen Delivery Method Room Air 01/03/23 14:18 BMI result Body Mass Index 32.0 Const General: alert Orientation/consciousness: patient oriented x3 Eyes Pupils: Equal, round and reactive pupils present Neck Neck: Yes normal visual inspection, Yes full ROM and Yes no lymphadenopathy Chest Chest palpation & inspection: normal inspection of the chest Resp Auscultation: no rhonchi, wheezes and diminished lung sounds Cardio Rate: regular rate Rhythm: regular rhythm Heart sounds: S1 normal heart sound present and S2 normal heart sound present GI Palpation (GI): Soft to palpation and nontender Auscultation: normal bowel sounds General: Yes no CVA tenderness Back/Spine/Pelvis Back: no CVA tenderness Skin General skin exam: no rashes or lesions noted Neuro General: patient oriented x3 Cranial nerves: Yes Equal, round and reactive pupils present Extrem General: Yes no clubbing, cyanosis or edema Office Procedures 6 Minute Walk Time:: 14:50 SPO2 % at rest: 92 Pulse at rest: 92 SPO2 % during excercise: 89 Pulse during excercise: 109 SPO2 % after excercise: 93 Pulse after excercise: 106 Distance in yards walked: 200 Leila Score: 7 Performance Observations:: arsalan walked on level ground without assistance, he walked on room air maintaining his SPO2 89-91% for the entire walk, no supplemental O2 needed. [id number] - 6 Minute Walk Assessment & Plan Assessment & Plan (1) Asthma-COPD overlap syndrome: Code(s): J44.9 - Chronic obstructive pulmonary disease, unspecified (2) COPD (chronic obstructive pulmonary disease): Code(s): J44.9 - Chronic obstructive pulmonary disease, unspecified Qualifiers: COPD type: chronic bronchitis Chronic bronchitis type: mucopurulent Qualified Code(s): J41.1 - Mucopurulent chronic bronchitis (3) Pulmonary nodules: Code(s): R91.8 - Other nonspecific abnormal finding of lung field (4) RAYMOND on CPAP: Code(s): G47.33 - Obstructive sleep apnea (adult) (pediatric); Z99.89 - Dependence on other enabling machines and devices (5) Chronic rhinitis: Code(s): J31.0 - Chronic rhinitis Plan Prednisone 10mg daily start Theophylline, monitor for adverse effects Labs in 2-3 weeks ANN as needed CPAP therapy, needs supplies Continue Brovana/BUdesonide/Xopenex nebs Flonase/Singulair/Loratidine LDCT Summer 2022 continue Tezspire F/U 3-4 months Orders: Orders Liver Panel Today J44.9 - Chronic obstructive pulmonary disease, unspecified Complete Blood Count Auto Diff Today J44.9 - Chronic obstructive pulmonary disease, unspecified Theophylline Today J44.9 - Chronic obstructive pulmonary disease, unspecified AMB 6 minute walk Today J44.9 - Chronic obstructive pulmonary disease, unspecified Medications: New theophylline ER 150 mg (1/2 x 300 mg) PO Q12H 30 days 30 tabs 2RF Coding Level of Care Code Est Pt Level 4 (70209) Diagnoses Asthma-COPD overlap syndrome J44.9 COPD (chronic obstructive pulmonary disease) J41.1 COPD type: chronic bronchitis Chronic bronchitis type: mucopurulent Pulmonary nodules R91.8 RAYMOND on CPAP G47.33; Z99.89 Chronic rhinitis J31.0 CPT Codes Coding ([id number]) Time Spent (min) 20
[2023-01-03 14:18] VITALS: PULSE 88; O2SAT 92; BMI 32.0
[2023-01-03 15:05] VITALS: PULSE 92; O2SAT 92
== END 2023-01-03 15:06 | disposition home or self-care (01) ==
PROVIDERS: PCP Family Medicine; Visit Provider Hospitalist
DX: G47.33 Obstructive sleep apnea (adult) (pediatric) (principal); Z99.89 Dependence on other enabling machines and devices
CPT/HCPCS: 94618; 99214

== ENCOUNTER → 2023-01-03 14:08 | Outpatient (BNVA) | payer MEDICARE, OTHER, SELFPAY | PROVIDERS: PCP Family Medicine; Visit Provider Hospitalist | DX: G47.33 Obstructive sleep apnea (adult) (pediatric) (principal); J44.9 Chronic obstructive pulmonary disease, unspecified; J41.1 Mucopurulent chronic bronchitis; J31.0 Chronic rhinitis; R91.8 Other nonspecific abnormal finding of lung field; Z99.89 Dependence on other enabling machines and devices | CPT/HCPCS: 94618; 99212 ==

== ENCOUNTER 2023-01-15 06:12 | Outpatient (REF) | payer MEDICARE, OTHER, SELFPAY ==
[2023-01-15 11:37] LABS: MANUAL DIFF FLAG NO
[2023-01-15 11:58] LABS: Basophils Absolute Auto 0.1 X10*3/uL (0.0-0.2); Basophils Percent Auto 0.9 % (0-2); Eosinophils Absolute Auto 0.2 X10*3/uL (0.0-0.4); Eosinophils Percent Auto 2.4 % (0-4); Hematocrit 43.1 % (42.0-52.0); Hemoglobin 13.7 g/dl (14.0-18.0); Imm Gran Abs Auto 0.02 X10*3/uL (0.00-0.03); Imm Gran Pct Auto 0.2 % (0.0-0.4); Lymphocytes Absolute Auto 2.7 X10*3/uL (1.2-4.9); Mean Corpuscular HGB Conc 31.8 g/dl (31.0-36.0); Mean Corpuscular Hemoglobin 29.7 pg (27.0-33.0); Mean Corpuscular Volume 93.3 fL (80.0-98.0); Mean Platelet Volume 11.4 fL (9.4-12.4); Monocytes Absolute Auto 0.8 X10*3/uL (0.1-1.2); Monocytes Percent Auto 9.2 % (2-11); Neutrophils Absolute Auto 4.9 x10*3/uL (2.0-8.3); Neutrophils Percent Auto 56.3 % (45-73); Platelet Count 376 X10*3/uL (160-400); Red Blood Count 4.62 X10*6/uL (4.60-5.80); Red Cell Distribution Width 12.6 % (11.0-16.0); White Blood Count 8.8 X10*3/uL (4.8-10.8)
[2023-01-15 12:14] LABS: Alanine Aminotransferase 18 U/L (0-40); Albumin Level 3.8 g/dL (3.5-5.0); Alkaline Phosphatase 82 U/L (39-117); Anion Gap 13 (12-20); Aspartate Amino Transferase 16 U/L (5-37); Bilirubin Direct 0.2 mg/dL (0.0-0.5); Bilirubin Total 0.4 mg/dL (0.0-1.0); Blood Urea Nitrogen 25 mg/dL (9-16); Calcium 9.2 mg/dL (8.4-10.2); Carbon Dioxide 23 mmol/L (22-29); Chloride 111 mmol/L (96-108); Cholesterol 128 mg/dL (<200); Estimated Glomerular Filt Rate 42; Glucose Fasting 95 mg/dL (60-99); HDL Cholesterol 59 mg/dL (>40); LDL Cholesterol Calculated 56 mg/dL (<100); Sodium 143 mmol/L (135-145); Total Protein 6.7 g/dL (6.5-8.0); Triglycerides 69 mg/dL (<150)
[2023-01-16 04:41] LABS: Theophylline 3.1 MG/L ((10-20))
== END 2023-01-15 06:13 | disposition home or self-care (01) ==
LOC: HO.HMGCLDS 06:12
PROVIDERS: PCP Family Medicine; Visit Provider Hospitalist
DX: Z00.00 Encounter for general adult medical examination without abnormal findings (principal); E78.5 Hyperlipidemia, unspecified; J44.9 Chronic obstructive pulmonary disease, unspecified
CPT/HCPCS: 36415; 80053; 80061; 80076; 80198; 82248; 85025

== ENCOUNTER 2023-01-28 10:25 | Outpatient (AMB) | payer MEDICARE, OTHER, SELFPAY ==
--- NOTE | 2023-01-28 10:31 | A.OFFPC_ITS ---
Vital Signs 01/28/23 10:33 Height 5 ft 9 in Weight 214 lb BMI 31.6 BP 132/72 Blood Pressure Location Rt brachial Position Sitting Pulse 88 Pulse Source Pulse Oximeter Pulse Oximetry (%) 95 Oxygen Delivery Method Room Air Intake Visit Reasons: f/u hypertension Intake Note: Patient is following up on hypertension today. Allergies watermelon [WATERMELON] Allergy (Severe, Verified 01/28/23 10:34) ANAPHYLAXIS Iodinated Contrast Media [IV CONTRAST] Allergy (Intermediate, Verified 01/28/23 10:34) LIGHT HEADED AND SHORTNESS OF BREATH Tobacco use date assessed: 06/28/22 Fall risk assessment: No Falls in past year Last assessed Fall Risk: 01/28/23 Dental Screening Dental Screen Date: 01/28/23 Did you have a dental visit in the last 12 months?: Yes Did you have a dental problem in the last 6 months where you did not have access to dental care?: No Was dental information given to patient?: Patient has dentist HPI f/u hypertension HPI Details 67 y/o male presents to f/u hypertension and hyperlipidemia. Labs were drawn 01/15/23. Reviewed labs with pt. Triglycerides 69. TC 128. LDL 56. HDL 59. He is on artovastatin 80mg daily. Elevated creatinine of 1.63. Blood pressure today 132/72. He is on lisinopril 20mg but he states he has stopped this last week as he was blacking out. HPI Comments History of Present Illness Details Documentation assistance for Guilherme Mcallister MD, was provided by Felix Oconnor,? Pulverizer Tender on 01/28/2023 11:12 AM EST. Jerome, Dr. Mcallister, have read, observed, and verified documentation.? [facility] Medical History Chronic lung disease Tubular adenoma of colon (~2005) COPD (chronic obstructive pulmonary disease) Pulmonary nodules RAYMOND on CPAP Chronic rhinitis Asthma-COPD overlap syndrome PAF (paroxysmal atrial fibrillation) (~2017) Echocardiogram abnormal Encounter for screening for lung cancer Edema leg Venous insufficiency of both lower extremities AC (acromioclavicular) joint arthritis BPH (benign prostatic hyperplasia) Seasonal allergies Hyperlipidemia Surgical History History of appendectomy History of esophagogastroduodenoscopy (EGD) History of total left hip replacement (~2019) History of repair of right rotator cuff (~2017) History of nasal septoplasty (~2008) History of colonoscopy History of cataract (~2009) Family History (Reviewed 01/28/23 @ 10:37 by Jaz Van [facility]) Father No problems noted. Mother CAD (coronary artery disease) CHF (congestive heart failure) HTN (hypertension) Brother No problems noted. Brother No problems noted. Sister No problems noted. Sister No problems noted. Sister No problems noted. Son No problems noted. Son No problems noted. Social History (Reviewed 01/28/23 @ 10:37 by Jaz Van [facility]) Household Members: Spouse Housing: House Do you presently have visiting nurse or other home services: No Alcohol intake: current Alcohol intake frequency: holidays/special occasions only Patient Tobacco Use Status: Former Tobacco user Tobacco use type: Cigarette Years Smoked: 40 years e-Cigarette/Vaping Use: Former Use Second Hand Smoke Exposure: No service: Yes Current occupational status: retired Cognitive needs: No Hearing needs: No Vision needs: No Questionnaire Thrive Questionnaire Date Thrive assessed: 06/28/22 STEVEN-7 AMB Questionnaire STEVEN-7 Date STEVEN - 7 assessed: 06/28/22 Source: Developed by Drs. Kwame William, Cayla Candelario, Damian Lee and colleagues, with an educational maria g from [employer]). Review of Systems Const Denies chills, Denies fatigue, Denies fever(s), Denies headache(s) and Denies weakness ENT Denies dizziness and Denies headache(s) Card Denies chest pain, Denies lightheadedness, Denies dyspnea and Denies other (Palpitations) Resp Denies cough, Denies dyspnea, Denies wheezing and Denies other ( shortness of breath) Musc Denies numbness and Denies tingling Neuro Denies dizziness, Denies headache(s), Denies numbness, Denies tingling, Denies paresthesias and Denies weakness Psych Denies anxiety and Denies depression Endo Denies fatigue Aller/Immun Denies wheezing Physical exam (Primary Care) Vital Signs: Last Vital Signs Pulse 88 01/28/23 10:33 BP 132/72 01/28/23 10:33 Pulse Ox 95 09/11/23 10:33 Oxygen Delivery Method Room Air 01/28/23 10:33 BMI result Body Mass Index 31.6 Tobacco/Smoking Status: Tobacco use Status Tobacco use date assessed 06/28/22 01/28/23 10:32 Patient Tobacco Use Status Former Tobacco user 01/28/23 10:32 Tobacco use type Cigarette 01/28/23 10:32 e-Cigarette/Vaping Use Former Use 01/28/23 10:32 Thrive Assessment: Date of Thrive Assessment Date Thrive assessed 06/28/22 01/28/23 10:32 Const General: no acute distress and well developed Nutritional Appearance: well nourished Orientation/consciousness: patient oriented x3 HENMT Head: Yes normocephalic and Yes atraumatic Eyes General: appearance normal, both eyes and all related structures Pupils: Equal, round and reactive pupils present EOM: EOMs intact bilaterally Resp Effort & Inspection: normal respiratory effort Auscultation: clear to auscultation bilaterally Cardio Rate: regular rate Rhythm: regular rhythm Heart sounds: S1 normal heart sound present, S2 normal heart sound present, no gallops, no murmurs and no rubs Neuro General: patient oriented x3 and gait normal Cranial nerves: Yes Equal, round and reactive pupils present Psych Affect: normal affect Assessment and Plan Assessment & Plan (1) Hypertension: Code(s): I10 - Essential (primary) hypertension Plan: Patient discontinued lisinopril as he said it was giving him problems Also creatinine level has bumped up in this may be due to lisinopril or combination of lisinopril with his furosemide. He is no longer taking this. Will recheck creatinine level. Encouraged diet low in salt/sodium encouraged weight loss and exercise (2) Hyperlipidemia: Code(s): E78.5 - Hyperlipidemia, unspecified Plan: Lipids appear well controlled. Continue atorvastatin (3) Elevated serum creatinine: Code(s): R79.89 - Other specified abnormal findings of blood chemistry Plan: As above, his creatinine level has bumped up. He has recently discontinued lisinopril Recheck creatinine (4) Shoulder pain: Code(s): M25.519 - Pain in unspecified shoulder Plan: Patient declines physical therapy He has a history of rotator cuff injury. Referred to Ortho Orders: Orders Comprehensive Met. Panel Today R79.89 - Other specified abnormal findings of blood chemistry Referrals Orthopedics Referral M25.519 - Pain in unspecified shoulder Coding Level of Care Code Est Pt Level 4 (55854) Diagnoses Hypertension I10 Hyperlipidemia E78.5 Elevated serum creatinine R79.89 Shoulder pain M25.519
[2023-01-28 10:33] VITALS: BP 132/72; PULSE 88; O2SAT 95; BMI 31.6
== END 2023-01-28 11:22 | disposition home or self-care (01) ==
PROVIDERS: PCP Family Medicine; Visit Provider Family Medicine
DX: I10 Essential (primary) hypertension (principal); E78.5 Hyperlipidemia, unspecified; R79.89 Other specified abnormal findings of blood chemistry; M25.519 Pain in unspecified shoulder
CPT/HCPCS: 99214

== ENCOUNTER 2023-01-28 11:40 | Outpatient (REF) | payer MEDICARE, OTHER, SELFPAY ==
[2023-01-28 14:58] LABS: Alanine Aminotransferase 20 U/L (0-40); Alkaline Phosphatase 96 U/L (39-117); Anion Gap 13 (12-20); Aspartate Amino Transferase 14 U/L (5-37); Bilirubin Total 0.7 mg/dL (0.0-1.0); Blood Urea Nitrogen 45 mg/dL (9-16); Calcium 9.7 mg/dL (8.4-10.2); Carbon Dioxide 24 mmol/L (22-29); Chloride 107 mmol/L (96-108); Estimated Glomerular Filt Rate 25; Glucose Random 101 mg/dL (60-115); Sodium 139 mmol/L (135-145); Total Protein 7.1 g/dL (6.5-8.0)
== END 2023-01-28 11:41 | disposition home or self-care (01) ==
LOC: HO.WFDLDS 11:40
PROVIDERS: Visit Provider Family Medicine
DX: R79.89 Other specified abnormal findings of blood chemistry (principal)
CPT/HCPCS: 36415; 80053

== ENCOUNTER 2023-02-21 12:55 | Outpatient (REF) | payer MEDICARE, OTHER, SELFPAY | END 2023-02-21 12:56 | disposition home or self-care (01) | LOC: HO.US 12:55 | PROVIDERS: PCP Family Medicine; Visit Provider Surgery Vascular Surgery | DX: I65.23 Occlusion and stenosis of bilateral carotid arteries (principal) | CPT/HCPCS: 93880 ==

== ENCOUNTER 2023-03-05 09:21 | Outpatient (AMB) | payer MEDICARE, OTHER, SELFPAY ==
--- NOTE | 2023-03-05 09:31 | MHC.OFFVIS ---
Intake Vital Signs 03/05/23 09:32 Height 5 ft 9 in Weight 214 lb BMI 31.6 Intake Visit Reasons: New Pt - left shoulder pain Intake Note: Kiran is a 67 year old right hand dominant male who presents today as a new patient for a evaluation for his left shoulder pain. Hx of left RTC repair and a right shoulder repair on 05/29/2017 and left shoulder in 2004. He states he has limited ROM since after his surgery. States pain has worsen. States he has intermittent numbness and tingling. Denies recent injury or neck pain. States he has only done P.T after his surgery with little improvement. Allergies watermelon [WATERMELON] Allergy (Severe, Verified 03/05/23 09:31) ANAPHYLAXIS Iodinated Contrast Media [IV CONTRAST] Allergy (Intermediate, Verified 03/05/23 09:31) LIGHT HEADED AND SHORTNESS OF BREATH HPI New Pt - left shoulder pain HPI Details 67-year-old right hand dominant male who presents in the office today, as a new patient, for an evaluation of left shoulder pain. The patient states he has a limited ROM after surgery. He claims to have increase in pain with intermittent numbness and tingling. He denies any injury to the left shoulder or neck. He confirms participating in physical therapy after surgery with little improvement. He claims his biggest concern is limited ROM. He confirms he also has pain. He states he is not interested in the cortisone injection due to his having them with no relief. Patient has a history of left shoulder rotator cuff repair in 2005 in [place]. A history of right shoulder rotator cuff repair and arthroscopy on 05/29/[address] Mueller[address] [facility] Medical History Chronic lung disease Tubular adenoma of colon (~2005) COPD (chronic obstructive pulmonary disease) Pulmonary nodules RAYMOND on CPAP Chronic rhinitis Asthma-COPD overlap syndrome PAF (paroxysmal atrial fibrillation) (~2017) Echocardiogram abnormal Encounter for screening for lung cancer Edema leg Venous insufficiency of both lower extremities AC (acromioclavicular) joint arthritis BPH (benign prostatic hyperplasia) Seasonal allergies Hyperlipidemia Surgical History History of appendectomy History of esophagogastroduodenoscopy (EGD) History of total left hip replacement (~2019) History of repair of right rotator cuff (~2017) History of nasal septoplasty (~2008) History of colonoscopy History of cataract (~2009) Family History Father No problems noted. Mother CAD (coronary artery disease) CHF (congestive heart failure) HTN (hypertension) Brother No problems noted. Brother No problems noted. Sister No problems noted. Sister No problems noted. Sister No problems noted. Son No problems noted. Son No problems noted. Social History Household Members: Spouse Housing: House Do you presently have visiting nurse or other home services: No Alcohol intake: current Alcohol intake frequency: holidays/special occasions only Patient Tobacco Use Status: Former Tobacco user Tobacco use type: Cigarette Years Smoked: 40 years e-Cigarette/Vaping Use: Former Use Second Hand Smoke Exposure: No service: Yes Current occupational status: retired Cognitive needs: No Hearing needs: No Vision needs: No Review of Systems Const All systems reviewed & are unremarkable except as noted in HPI and below Physical Exam Vital Signs: BMI result Body Mass Index 31.6 Const General: cooperative and no acute distress Orientation/consciousness: patient oriented x3 Resp Effort & Inspection: normal respiratory effort and able to speak in complete sentences Cardio Peripheral pulses: Peripheral pulses 2+ throughout Skin General skin exam: no rashes or lesions noted Neuro General: patient oriented x3 Extrem Other: Left shoulder: Forward flexion to 90 degrees. Abduction to 70 degrees. Able to reach back pocket. Positive cross-body reach. 3/5 strength with empty can. Negative drop arm. NVI. Assessment & Plan Assessment & Plan (1) Painful arc syndrome of left shoulder: Code(s): M75.102 - Unspecified rotator cuff tear or rupture of left shoulder, not specified as traumatic Plan Mr. Dela Cruz is a 67-year-old right hand dominant male who presents in the office today, as a new patient, for an evaluation of left shoulder pain. The patient states he has a limited ROM after surgery. He claims to have increase in pain with intermittent numbness and tingling. He denies any injury to the left shoulder or neck. He confirms participating in physical therapy after surgery with little improvement. He claims his biggest concern is limited ROM. He confirms he also has pain. He states he is not interested in the cortisone injection due to his having them with no relief. Patient has a history of left shoulder rotator cuff repair in 2004 in [place]. A history of right shoulder rotator cuff repair and arthroscopy on 05/29/[address] Mueller. The patient will be referred for an open MRI for further evaluation of the left shoulder. Follow up will be after the open MRI is obtained or 4 weeks, or sooner if needed. X-rays of the left shoulder obtained while in the office today and reviewed by me, Meghana Wellington PA-C, revealed osteoarthritis. Slight migration of the humeral head superior evidence of the subacromial decompression. Distal clavicle excision. Orders: Orders XR shoulder LT min 2V Today M25.519 - Pain in unspecified shoulder MR shoulder LT wo con Today M12.812 - Other specific arthropathies, not elsewhere classified, left shoulder Patient Instructions: Scribed for Meghana Wellington PA-C by Ava Fontanez certified medical technician, on 03/05/2023 at 9:26 am, EST. Coding Level of Care Code New Pt Level 4 (82386) Diagnoses Painful arc syndrome of left shoulder M75.102
[2023-03-05 09:32] VITALS: BMI 31.6
== END 2023-03-05 10:46 | disposition home or self-care (01) ==
PROVIDERS: PCP Family Medicine; Visit Provider Physician Assistant
DX: M75.102 Unspecified rotator cuff tear or rupture of left shoulder, not specified as traumatic (principal)
CPT/HCPCS: 99204

== ENCOUNTER 2023-03-05 14:56 | Outpatient (REF) | payer MEDICARE, OTHER, SELFPAY ==
--- NOTE | ~2023-03-05 | XR_ITS ---
EXAMINATION: XR SHOULDER, LEFT CLINICAL INFORMATION: Pain in unspecified shoulder. COMPARISON: None available. TECHNIQUE: Three views of the left shoulder. FINDINGS: Borderline widening of the acromioclavicular space of approximately 1.2 cm with hypertrophic change. Distal end of the clavicle appears concave and irregular, possibly related to prior trauma or degenerative process. Mild degenerative changes at the glenohumeral joint. Humeral head appears somewhat superiorly located. Concavity with sclerosis along the superolateral aspect of the humeral head may reflect prior trauma. Tiny calcification in the soft tissues adjacent to the humeral head. XR/XR shoulder LT min 2V IMPRESSION: Degenerative changes and possible post traumatic changes left shoulder as detailed above. Correlation with clinical exam and possible additional imaging with CT scan or MRI recommended for further evaluation.
== END 2023-03-05 14:57 | disposition home or self-care (01) ==
LOC: HO.HOSX 14:56
PROVIDERS: Visit Provider Physician Assistant
DX: M25.512 Pain in left shoulder (principal); M12.812 Other specific arthropathies, not elsewhere classified, left shoulder; M75.102 Unspecified rotator cuff tear or rupture of left shoulder, not specified as traumatic
CPT/HCPCS: 73030

== ENCOUNTER 2023-03-14 14:24 | Outpatient (AMB) | payer MEDICARE, OTHER, SELFPAY ==
[2023-03-14 14:28] VITALS: BP 128/64; PULSE 95; O2SAT 95; BMI 30.9
--- NOTE | 2023-03-14 14:28 | A.OFFVIS_ITS ---
Intake Vital Signs 03/14/23 14:28 Height 5 ft 9 in Weight 209 lb 7.026 oz BMI 30.9 BP 128/64 Blood Pressure Location Lt brachial Position Sitting Pulse 95 Pulse Source Pulse Oximeter Pulse Oximetry (%) 95 Oxygen Delivery Method Room Air Intake Visit Reasons: Obstructive sleep apnea Patient Care Associate Required: No Treater: Treater offered & declined Accompanied by: Self / Same As Patient Allergies watermelon [WATERMELON] Allergy (Severe, Verified 03/14/23 14:31) ANAPHYLAXIS Iodinated Contrast Media [IV CONTRAST] Allergy (Intermediate, Verified 03/14/23 14:31) LIGHT HEADED AND SHORTNESS OF BREATH Medication List - Last Reconciled 03/14/23 by Tori Chaves LPN albuterol sulfate 90 mcg/actuation 2 puffs inhalation QID apixaban (Eliquis) 5 mg PO BID arformoterol (Brovana) 15 mcg (2 mL) inhalation BID atorvastatin 80 mg PO DAILY budesonide 0.5 mg (2 mL) inhalation BID bupropion HCl 150 mg (2 x 75 mg) PO BID 90 days CPAP (CPAP Machine/Device) As directed dronedarone (Multaq) 400 mg PO BID 90 days fluticasone propionate 220 mcg/actuation (Flovent HFA) 1 puff inhalation Q12H furosemide 20 mg PO DAILY levalbuterol HCl 1.25 mg (3 mL) inhalation BID 90 days lisinopril 20 mg PO DAILY 90 days montelukast 10 mg PO DAILY nebulizers As directed roflumilast (Daliresp) 500 mcg PO DAILY tamsulosin (Flomax) 0.4 mg PO BID 90 days tezepelumab-ekko (Tezspire) 210 mg subcut Q4W theophylline ER 150 mg (1/2 x 300 mg) PO Q12H 30 days HPI HPI Comments History of Present Illness Details Patient is a 67 y/o man with history of underlying pulmonary nodules, RAYMOND on CPAP, asthma COPD overlap syndrome, tracheobronchomalacia in addition to hypersensitivity pneumonitis due to multiple exposures especially at while he was working. He has been using CPAP therapy the CPAP therapy has been very affecting beneficial. The CPAP therapy he uses every night for more than 4 h ours. Recently he did have a CT scan of his chest for the lung cancer screening program and is nodular densities have resolved which is very reassuring. He is scheduled for the CT scan in a year's time. I am hopeful that we can decrease the amount of Xopenex that he is using and then hopefully decrease the amount of budesonide that he is using. His CPAP therapy has been affecting beneficial. He has been getting supplies through [employer] now regularly. His CPAP therapy he does use for more than 4 hours a night. He has lost about 30 lb. He still on Daliresp that is likely contributing to that. If he continues doing well we can also consider decreasing the or stopping the Daliresp in the future. 07/27/2021 the patient is here for a pulmonary follow-up visit. For the last 2 weeks he has been having hard time with his breathing. Has had significant coughing spells. Moderate to severe. Has been expectorating some phlegm yellowish in color. Has been very wheezing. Has had it is a lot of chest tightness. Has been using his nebulizer 4 times a day if not more. He has not been taking any prednisone. He continues on the Fasenra injection. He also continues with CPAP at nighttime. The CPAP therapy continues to be affecting beneficial. On examination today he has significant wheezing. He opted not a getting a breathing treatment since he already had 1 just prior to coming in. We did provide him with Solu-Medrol. Will do additional blood work to assess his eosinophilic levels and IgE levels. At this point is not clear if this is allergic related or infectious. In the meantime will treating for a bacterial infection with antibiotics. 08/17/2021 the patient is here for a pulmonary follow-up visit. He is finally feeling better. He completed the steroids. He continues on his current respiratory regimen. He is currently on Dupixent. Will have to see how he response to the Dupixent as he failed Fasenra. I am hopeful that his symptoms continue to improve. I did discuss with him to try the picks at least for 6 months. if the patient continues to be symptomatic could also consider TSLP inhibitor. the patient continues uses CPAP without any issues. He does use it for more than 4 hours a night. He has been getting supplies regularly. 01/02/2022 the patient is here for sick visit. He has been having worsening respiratory symptoms for the last for 5 days. Significant shortness of breath and wheezing. Moderate to severe. He continues uses nebulized therapy. In addition to that he has been using Dupixent every 2 weeks. Seems like he has had multiple exacerbations. He is also off the prednisone completely. I did reach out to his uptwist spinner. Currently he does get allergy shots. He has a follow-up visit in February. If he continues to be symptomatic he may need to consider switching to a different biologic medications such as Tezspire. in the office he does have significant wheezing. I did provide him with to Xopenex nebs and 1 ipratropium neb. He also received 125 mg of Solu- Medrol. Patient will start antibiotic and also prednisone taper. If the patient has no better he is to follow-up and call the office. he does continue to use CPAP. However, with difficulty breathing and the coughing he has had a hard time keeping the mask on. I did advise him to wait till he felt better to put on CPAP. 02/15/2022 the patient is here for a pulmonary follow-up visit. He is feeling a lot better now. The patient did require Solu-Medrol and prednisone during the last Visit. Unfortunately, he does continue on some prednisone. He taper down to 10 mg. once he is up the prednisone his symptoms will return. Therefore I will make sure for him to have prednisone to continue therapy. He did follow-up with his uptwist spinner and he will be starting a new biologic medication, Tezspire, in 2 weeks. I am hopeful that once he starts the new biologic therapy that we can see about weaning him down further from the predni sone. Will have to assess for adrenal insufficiency due to his chronic prednisone use. The patient does continue to use CPAP well. CPAP therapy continues to be affecting beneficial. He does use it for more than 4 hours a night. If he continues with his current respiratory regimen. He did also undergo a CT scan of the chest at [facility] the summer as part of the lung cancer screening program and his CT scan was stable and will be having another CT scan in a year's time. 05/24/2022 the patient has a telephone visit today. Several days ago he started developing worsening cough in addition to fevers. He did test positive for COVID about 3-4 days ago. He was not placed on PACS Flovent. Currently he is on his respiratory therapy. He is also on his baseline prednisone. He is complaining of productive cough with green mucus. Moderate severity. His fever is a little better. He has been having significant wheezing and chest tightness. He has been using his nebulizer therapy throughout the day. Will go ahead and place him on a prednisone taper in addition to start him on Levaquin. He knows the adverse effects including tendinitis. If he has any adverse eff ects he is to call. Otherwise if his respiratory status gets worse need to go to the ER for further evaluation. 09/13/2022 the patient is here for pulmonary follow-up visit. Overall the patient is doing better. He has been on the test prior injections now for few months and appear to be working better for him. He still can get off the prednisone. He recently ran out of prednisone his breathing got worse again. He had been down to 10 mg alternating with 20 mg daily. I did see him in a prednisone for him to slowly wean down from 20 mg which I am hopeful that he can wean slowly down to 10 mg in due time. He will continue with current respiratory therapy. He continues uses CPAP at nighttime. CPAP therapy continues to be affecting beneficial and he does use it for more than 4 hours a night. 01/03/2023 the patient is here for pulmonary follow-up visit. The patient had been hospitalized with worsening respiratory symptoms. He had been on a prednisone taper. However, now is completely off. He has been using his nebulized therapy in addition to his respiratory medications. Continues to have chest tightness and wheezing. He is also having coughing. Moderate severity. The patient has been on multiple medication now on biologic therapy. The only other option to try to improve his significant bronchospasms would be to try theophylline. He does have a history of atrial fibrillation so and to be careful with the dose. Will start him on a very small dose and see if he can tolerated. The hope is with the low-dose theophylline he may be able to be on less amount of prednisone. The patient also continues uses CPAP. He has not been getting supplies the of from the [employer], I did send a message to the [employer] and did fill out another script. The CPAP therapy has been very affecting beneficial for him. He does use it for more than 4 hours. However, without supplies the patient is not able to use it effectively. In the office we also reviewed his recent CT scan that he had 12/18/2022. There is interval improvement of the significant bronchiolitis and nodular densities appreciated on the CT scan back in he was in the hospital in September/October. 03/14/2023 the patient is here for a pulmonary follow-up visit. The patient has been having hard time with his breathing. Having significant chest tightness and wheezing. Moderate to severe. The patient was started on theophylline during the last visit. Although he started developing some uncomfortable symptoms with nausea and headaches and therefore the patient has stopped it. Once she stopped the medication symptoms her side effects got better. He is also been dealing with some cardiac medication changes. The patient also has been off the prednisone altogether specially because of his other comorbidities. He also has been on the biologic therapy, Tezspire. still having hard time with his breathing. He has significant chest tightness and wheezing on exam. We did provide him Solu-Medrol because of significant wheezing. He is going to have to start prednisone again. Will try to keep him on a low dose. [facility] Medical History Chronic lung disease Tubular adenoma of colon (~2005) COPD (chronic obstructive pulmonary disease) Pulmonary nodules RAYMOND on CPAP Chronic rhinitis Asthma-COPD overlap syndrome PAF (paroxysmal atrial fibrillation) (~2017) Echocardiogram abnormal Encounter for screening for lung cancer Edema leg Venous insufficiency of both lower extremities AC (acromioclavicular) joint arthritis BPH (benign prostatic hyperplasia) Seasonal allergies Hyperlipidemia Surgical History History of appendectomy History of esophagogastroduodenoscopy (EGD) History of total left hip replacement (~2019) History of repair of right rotator cuff (~2017) History of nasal septoplasty (~2008) History of colonoscopy History of cataract (~2009) Family History Father No problems noted. Mother CAD (coronary artery disease) CHF (congestive heart failure) HTN (hypertension) Brother No problems noted. Brother No problems noted. Sister No problems noted. Sister No problems noted. Sister No problems noted. Son No problems noted. Son No problems noted. Social History (Updated 03/14/23 @ 14:35 by Tori Chaves LPN) Household Members: Spouse Housing: House Do you presently have visiting nurse or other home services: No Alcohol intake: current Alcohol intake frequency: holidays/special occasions only Patient Tobacco Use Status: Former Tobacco user Tobacco use type: Cigarette Years Smoked: 40 years e-Cigarette/Vaping Use: Former Use Second Hand Smoke Exposure: No service: Yes Current occupational status: retired Cognitive needs: No Hearing needs: No Vision needs: No Review of Systems Const Reports weight gain Eyes Denies change in vision ENT Reports nasal congestion, Reports nasal discharge and Reports sore throat Card Denies chest pain and Reports dyspnea on exertion Resp Denies change in phlegm color, Reports chest congestion, Reports cough, Denies hemoptysis, Denies excessive phlegm production, Reports dyspnea on exertion and Reports wheezing GI Reports no additional complaints Musc Reports no additional complaints Skin/Breast Denies rash Neuro Reports no additional complaints Psych Reports no additional complaints Endo Denies heat intolerance Kelvin/Lymph Denies easy bleeding, Denies easy bruising and Denies lymphadenopathy Aller/Immun Reports wheezing Physical Exam Vital Signs: Last Vital Signs Pulse 95 03/14/23 14:28 BP 128/64 03/14/23 14:28 Pulse Ox 95 03/14/23 14:28 Oxygen Delivery Method Room Air 03/14/23 14:28 BMI result Body Mass Index 30.9 Const General: alert Orientation/consciousness: patient oriented x3 Eyes Pupils: Equal, round and reactive pupils present Neck Neck: Yes normal visual inspection, Yes full ROM and Yes no lymphadenopathy Chest Chest palpation & inspection: normal inspection of the chest Resp Effort & Inspection: audible wheezes, Actively coughing Quality: productive, tachypneic and prolonged expiratory phase Auscultation: no rhonchi, wheezes and diminished lung sounds Cardio Rate: regular rate Rhythm: regular rhythm Heart sounds: S1 normal heart sound present and S2 normal heart sound present GI Palpation (GI): Soft to palpation and nontender Auscultation: normal bowel sounds General: Yes no CVA tenderness Back/Spine/Pelvis Back: no CVA tenderness Skin General skin exam: no rashes or lesions noted Neuro General: patient oriented x3 Cranial nerves: Yes Equal, round and reactive pupils present Extrem General: Yes no clubbing, cyanosis or edema Office Meds methylprednisolone sod suc(PF) 125 mg/2 mL solution for injection Performing Provider: Sha Head MD Performing Location: [facility] Administered by: Qiana Valencia LPN on 03/14/23 15:05 Dose Route Admin Location Dispensed Lot Number Expiration Date NDC [employer] 125 mg IM R buttock 2 mL [id number] 02/16/25 9877-1788-09 [employer] Assessment & Plan Assessment & Plan (1) Asthma-COPD overlap syndrome: Code(s): J44.9 - Chronic obstructive pulmonary disease, unspecified (2) COPD (chronic obstructive pulmonary disease): Code(s): J44.9 - Chronic obstructive pulmonary disease, unspecified Qualifiers: COPD type: COPD with acute lower respiratory infection Qualified Code(s): J44.0 - Chronic obstructive pulmonary disease with (acute) lower respiratory infection (3) Pulmonary nodules: Code(s): R91.8 - Other nonspecific abnormal finding of lung field (4) RAYMOND on CPAP: Code(s): G47.33 - Obstructive sleep apnea (adult) (pediatric); Z99.89 - Dependence on other enabling machines and devices (5) Chronic rhinitis: Code(s): J31.0 - Chronic rhinitis Plan Solumedrol 125mg IM x 1 restart low dose prednisone continue Tezspire Sputum cx/CXR if no better continue Brovana/BUdesonide ANN as needed Stopped Theophylline F/U 4-6 weeks Orders: Orders XR chest 2V Today J18.9 - Pneumonia, unspecified organism AMB Methylprednisolone Injection Today J44.1 - Chronic obstructive pulmonary disease with (acute) exacerbation Medications: New prednisone 20 mg (2 x 10 mg) PO DAILY 30 days 60 tabs 9RF cefpodoxime must administer with a meal/food 200 mg PO BID 20 tabs 0RF doxycycline hyclate 100 mg PO BID 10 days 20 caps 0RF Coding Level of Care Code Est Pt Level 4 (41849) Diagnoses Asthma-COPD overlap syndrome J44.9 Chronic obstructive pulmonary disease with acute lower respiratory infection J44.0 COPD type: COPD with acute lower respiratory infection Pulmonary nodules R91.8 RAYMOND on CPAP G47.33; Z99.89 Chronic rhinitis J31.0 Time Spent (min) 18
== END 2023-03-14 14:59 | disposition home or self-care (01) ==
PROVIDERS: PCP Family Medicine; Visit Provider Hospitalist
DX: J44.9 Chronic obstructive pulmonary disease, unspecified (principal); J44.0 Chronic obstructive pulmonary disease with (acute) lower respiratory infection; R91.8 Other nonspecific abnormal finding of lung field; G47.33 Obstructive sleep apnea (adult) (pediatric); Z99.89 Dependence on other enabling machines and devices; J31.0 Chronic rhinitis
CPT/HCPCS: 99214

== ENCOUNTER → 2023-03-14 14:24 | Outpatient (BNVA) | payer MEDICARE, OTHER, SELFPAY | PROVIDERS: PCP Family Medicine; Visit Provider Hospitalist | DX: G47.33 Obstructive sleep apnea (adult) (pediatric) (principal); J44.0 Chronic obstructive pulmonary disease with (acute) lower respiratory infection; J31.0 Chronic rhinitis; R91.8 Other nonspecific abnormal finding of lung field; Z99.89 Dependence on other enabling machines and devices | CPT/HCPCS: 96372; 99212; J2930 ==

== ENCOUNTER → 2023-03-28 09:49 | Outpatient (BNVA) | payer MEDICARE, OTHER, SELFPAY | PROVIDERS: PCP Family Medicine; Visit Provider Nurse Practitioner Family | DX: I65.23 Occlusion and stenosis of bilateral carotid arteries (principal); I83.11 Varicose veins of right lower extremity with inflammation; I83.12 Varicose veins of left lower extremity with inflammation; I48.0 Paroxysmal atrial fibrillation | CPT/HCPCS: 99212 ==

== ENCOUNTER 2023-03-28 12:51 | Outpatient (AMB) | payer MEDICARE, OTHER, SELFPAY ==
[2023-03-28 12:56] VITALS: BMI 30.9
--- NOTE | 2023-03-28 12:56 | A.OFFVIS_ITS ---
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 Pt states he does get blurred vision and loss of balance. He states he's had that for years. Accompanied by: Self / Same As Patient Allergies watermelon [WATERMELON] Allergy (Severe, Verified 03/28/23 13:02) ANAPHYLAXIS Iodinated Contrast Media [IV CONTRAST] Allergy (Intermediate, Verified 03/28/23 13:02) LIGHT HEADED AND SHORTNESS OF BREATH HPI FU Carotid US HPI Details Very pleasant 67-year-old gentleman presents for follow-up regarding carotid stenosis. Of note he had seen us in the past for venous disease as well. He reports that his leg swelling and discomfort have been significantly improved. In addition he has lost 30 lb. In terms of his carotids he remains asymptomatic. He denies any lateralizing signs or symptoms any visual changes or speech disturbances. He now presents for routine follow-up. [facility], [facility] Medical History Chronic lung disease Tubular adenoma of colon (~2005) COPD (chronic obstructive pulmonary disease) Pulmonary nodules RAYMOND on CPAP Chronic rhinitis Asthma-COPD overlap syndrome PAF (paroxysmal atrial fibrillation) (~2017) Echocardiogram abnormal Encounter for screening for lung cancer Edema leg Venous insufficiency of both lower extremities AC (acromioclavicular) joint arthritis BPH (benign prostatic hyperplasia) Seasonal allergies Hyperlipidemia Surgical History History of appendectomy History of esophagogastroduodenoscopy (EGD) History of total left hip replacement (~2019) History of repair of right rotator cuff (~2017) History of nasal septoplasty (~2008) History of colonoscopy History of cataract (~2009) Family History Father No problems noted. Mother CAD (coronary artery disease) CHF (congestive heart failure) HTN (hypertension) Brother No problems noted. Brother No problems noted. Sister No problems noted. Sister No problems noted. Sister No problems noted. Son No problems noted. Son No problems noted. Social History Household Members: Spouse Housing: House Do you presently have visiting nurse or other home services: No Alcohol intake: current Alcohol intake frequency: holidays/special occasions only Patient Tobacco Use Status: Former Tobacco user Tobacco use type: Cigarette Years Smoked: 40 years e-Cigarette/Vaping Use: Former Use Second Hand Smoke Exposure: No service: Yes Current occupational status: retired Cognitive needs: No Hearing needs: No Vision needs: No Review of Systems Const All systems reviewed & are unremarkable except as noted in HPI and below Reports no additional complaints ENT Reports Normal hearing present Card Denies chest pain, Denies chest pain at rest, Denies chest pain with activity and Denies pedal edema Resp Denies cough GI Denies abdominal pain Musc Denies abnormal gait, Denies muscle cramps and Denies radiating pain into limb Skin/Breast Denies skin ulcer and Denies wounds Neuro Reports Normal hearing present and Denies abnormal gait Psych Reports no additional complaints Physical Exam Vital Signs: BMI result Body Mass Index 30.9 Const General: cooperative, healthy appearing and comfortable Orientation/consciousness: oriented to person, oriented to place and oriented to time HEENT Head: Yes normal to inspection Neck Neck: Yes normal visual inspection Carotids: no bruits Chest Chest palpation & inspection: normal inspection of the chest Resp Effort & Inspection: normal respiratory effort and able to speak in complete sentences Auscultation: clear to auscultation bilaterally, no crackles, no rales, no rhonchi and no wheezes Cardio Rate: regular rate Rhythm: regular rhythm Heart sounds: S1 normal heart sound present and S2 normal heart sound present Bruits: no carotid bruits Peripheral pulses: Peripheral pulses 2+ throughout GI Inspection: Yes normal to inspection Skin Wounds: no wounds Hair: normal Neuro General: oriented to person, oriented to place and oriented to time Cranial nerves: Yes CN's II-XII intact bilaterally and Yes Normal hearing present Cognition (Neuro): normal cognition Motor exam (neuro): 5/5 motor strength present throughout Extrem Other: venous exam: No significant superficial varicosities or spider telangiectasias, minimal edema General: No clubbing, No cyanosis and No edema Psych Appearance: grossly normal Mental Status: mental status grossly normal Speech and movement: Normal speech and movement present Results Reviewed Results Reviewed: Carotid testing dated 02/21/2023 demonstrates right-sided stenosis 50-79% with a peak systolic of 156 and on the left side 0-49% stenosis. No change from prior year. Written report and images were reviewed. Assessment & Plan Assessment & Plan (1) Carotid stenosis, bilateral: Code(s): I65.23 - Occlusion and stenosis of bilateral carotid arteries Plan: In short patient has asymptomatic carotid disease. We have reviewed signs and symptoms of a stroke. We also discussed risk factor modification inclusive a healthy diet low in cholesterol. The patient will follow up with us with surveillance ultrasound of the carotids 1 year. Should there be any changes or signs or symptoms of a stroke we will be happy to see them back sooner. Thank you for allowing us to participate in this patient's care. If there are any que stions or concerns please do not hesitate to contact us. (2) Varicose veins of right lower extremity with inflammation: Comment: 01/01/2020 - right great saphenous vein Cyanoacralate ablation Code(s): I83.11 - Varicose veins of right lower extremity with inflammation (3) Varicose veins of left lower extremity with inflammation: Comment: 11/13/2019 - left great saphenous vein Cyanoacralate ablation Code(s): I83.12 - Varicose veins of left lower extremity with inflammation Orders: Orders US carotid duplex BI 364 Days I65.23 - Occlusion and stenosis of bilateral carotid arteries Coding Level of Care Code Est Pt Level 4 (40821) Diagnoses Carotid stenosis, bilateral I65.23 Varicose veins of right lower extremity with inflammation I83.11 Varicose veins of left lower extremity with inflammation I83.12
== END 2023-03-28 13:18 | disposition home or self-care (01) ==
PROVIDERS: PCP Family Medicine; Visit Provider Surgery Vascular Surgery
DX: I65.23 Occlusion and stenosis of bilateral carotid arteries (principal); I83.11 Varicose veins of right lower extremity with inflammation; I83.12 Varicose veins of left lower extremity with inflammation
CPT/HCPCS: 99213

== ENCOUNTER 2023-04-08 10:55 | Outpatient (AMB) | payer MEDICARE, OTHER, SELFPAY ==
[2023-04-08 10:56] VITALS: BMI 30.9
--- NOTE | 2023-04-08 10:56 | A.OFFVIS_ITS ---
Intake Vital Signs 04/08/23 10:56 Height 5 ft 9 in Weight 209 lb BMI 30.9 Intake Visit Reasons: OV - left shoulder MRI review Intake Note: Kiran is a 67 year old male who presents today for a MRI review of his left shoulder. Allergies watermelon [WATERMELON] Allergy (Severe, Verified 04/08/23 10:59) ANAPHYLAXIS Iodinated Contrast Media [IV CONTRAST] Allergy (Intermediate, Verified 04/08/23 10:59) LIGHT HEADED AND SHORTNESS OF BREATH HPI OV - left shoulder MRI review HPI Details 67-year-old right hand dominant male who presents in the office today for a follow up of left shoulder pain and review of his MRI. [facility] Medical History Chronic lung disease Tubular adenoma of colon (~2005) COPD (chronic obstructive pulmonary disease) Pulmonary nodules RAYMOND on CPAP Chronic rhinitis Asthma-COPD overlap syndrome PAF (paroxysmal atrial fibrillation) (~2017) Echocardiogram abnormal Encounter for screening for lung cancer Edema leg Venous insufficiency of both lower extremities AC (acromioclavicular) joint arthritis BPH (benign prostatic hyperplasia) Seasonal allergies Hyperlipidemia Surgical History History of appendectomy History of esophagogastroduodenoscopy (EGD) History of total left hip replacement (~2019) History of repair of right rotator cuff (~2017) History of nasal septoplasty (~2008) History of colonoscopy History of cataract (~2009) Family History Father No problems noted. Mother CAD (coronary artery disease) CHF (congestive heart failure) HTN (hypertension) Brother No problems noted. Brother No problems noted. Sister No problems noted. Sister No problems noted. Sister No problems noted. Son No problems noted. Son No problems noted. Social History Household Members: Spouse Housing: House Do you presently have visiting nurse or other home services: No Alcohol intake: current Alcohol intake frequency: holidays/special occasions only Patient Tobacco Use Status: Former Tobacco user Tobacco use type: Cigarette Years Smoked: 40 years e-Cigarette/Vaping Use: Former Use Second Hand Smoke Exposure: No service: Yes Current occupational status: retired Cognitive needs: No Hearing needs: No Vision needs: No Review of Systems Const All systems reviewed & are unremarkable except as noted in HPI and below Physical Exam Vital Signs: BMI result Body Mass Index 30.9 Const General: cooperative, healthy appearing and no acute distress Resp Effort & Inspection: normal respiratory effort and able to speak in complete sentences Cardio Rate: regular rate Peripheral pulses: Peripheral pulses 2+ throughout GI Palpation (GI): Soft to palpation Skin Lesions: no lesions Rashes: no rashes Extrem Other: Left shoulder: Forward flexion to 90 degrees. Abduction to 70 degrees. Able to reach back pocket. Positive cross-body reach. 3/5 strength with empty can. Negative drop arm. NVI. Assessment & Plan Assessment & Plan (1) Painful arc syndrome of left shoulder: Code(s): M75.102 - Unspecified rotator cuff tear or rupture of left shoulder, not specified as traumatic Plan Mr. Dela Cruz is a 67-year-old right hand dominant male who presents in the office today for a follow up of left shoulder pain and review of his MRI. We discussed the role of physical therapy with the patient while in the office today. He was declined at this time reporting he works on home exercises on his own. I discussed the role of cortisone injections with the patient but due to needle phobia he has declined at this time. We discussed topical pain creams as he is unable to take any anti-inflammatories due to being on blood thinners. He reports occasional use of Icy Hot topical cream. He will reach out to the office should he decide to try a prescription medication or wish to move forward with injections. Follow up will be PRN, or sooner if needed. MRI of the left shoulder, obtained on 03/11/2023 at [facility], revealed: 1. Susceptibility artifact the distal supraspinatus and infraspinatus, limits assessment of the tendons for recurrent tear. There is no evidence of recurrent full-thickness tear or significant tendon retraction or muscle atrophy. 2. Status post acromioplasty with susceptibility artifact and attenuation of the undersurface of the acromion. 3. Mild glenohumeral joint degeneration cartilage thinning as indicated. Patient Instructions: Scribed for Meghana Wellington PA-C by Ava Fontanez certified medical technician, on 04/08/2023 at 10:56 am, EST. Coding Level of Care Code Est Pt Level 3 (32103) Diagnoses Painful arc syndrome of left shoulder M75.102
== END 2023-04-08 11:09 | disposition home or self-care (01) ==
PROVIDERS: PCP Family Medicine; Visit Provider Physician Assistant
DX: M75.102 Unspecified rotator cuff tear or rupture of left shoulder, not specified as traumatic (principal)
CPT/HCPCS: 99213

== ENCOUNTER → 2023-04-08 10:55 | Outpatient (BNVA) | payer MEDICARE, OTHER, SELFPAY | PROVIDERS: PCP Family Medicine; Visit Provider Physician Assistant | DX: M75.102 Unspecified rotator cuff tear or rupture of left shoulder, not specified as traumatic (principal) | CPT/HCPCS: 99212 ==

== ENCOUNTER 2023-04-18 11:07 | Outpatient (AMB) | payer MEDICARE, OTHER, SELFPAY ==
--- NOTE | 2023-04-18 11:12 | A.OFFVIS_ITS ---
Intake Vital Signs 04/18/23 11:13 Height 5 ft 9 in Weight 211 lb BMI 31.2 BP 140/80 H Blood Pressure Location Lt brachial Pulse 78 Pulse Oximetry (%) 97 Intake Visit Reasons: Obstructive sleep apnea Allergies watermelon [WATERMELON] Allergy (Severe, Verified 04/18/23 11:20) ANAPHYLAXIS Iodinated Contrast Media [IV CONTRAST] Allergy (Intermediate, Verified 04/18/23 11:20) LIGHT HEADED AND SHORTNESS OF BREATH HPI HPI Comments History of Present Illness Details Patient is a 67 y/o man with history of underlying pulmonary nodules, RAYMOND on CPAP, asthma COPD overlap syndrome, tracheobronchomalacia in addition to hypersensitivity pneumonitis due to multiple exposures especially at while he was working. He has been using CPAP therapy the CPAP therapy has been very affecting beneficial. The CPAP therapy he uses every night for more than 4 hours. Recently he did have a CT scan of his chest for the lung cancer screening program and is nodular densities have resolved which is very reassuring. He is scheduled for the CT scan in a year's time. I am hopeful that we can decrease the amount of Xopenex that he is using and then hopefully decrease the amount of budesonide that he is using. His CPAP therapy has been affecting beneficial. He has been getting supplies through [employer] now regularly. His CPAP therapy he does use for more than 4 hours a night. He has lost about 30 lb. He still on Daliresp that is likely contributing to that. If he co 05/24/2022 the patient has a telephone vis it today. Several days ago he started developing worsening cough in addition to fevers. He did test positive for COVID about 3-4 days ago. He was not placed on PACS Flovent. Currently he is on his respiratory therapy. He is also on his baseline prednisone. He is complaining of productive cough with green mucus. Moderate severity. His fever is a little better. He has been having significant wheezing and chest tightness. He has been using his nebulizer therapy throughout the day. Will go ahead and place him on a prednisone taper in addition to start him on Levaquin. He knows the adverse effects including tendinitis. If he has any adverse effects he is to call. Otherwise if his respiratory status gets worse need to go to the ER for further evaluation. 09/13/2022 the patient is here for pulmon myles follow-up visit. Overall the patient is doing better. He has been on the test prior injections now for few months and appear to be working better for him. He still can get off the pred nisone. He recently ran out of prednisone his breathing got worse again. He had been down to 10 mg alternating with 20 mg daily. I did see him in a prednisone for him to slowly wean down from 20 mg which I am hopeful that he can wean slowly down to 10 mg in due time. He will continue with current respiratory therapy. He continues uses CPAP at nighttime. CPAP therapy continues to be affecting beneficial and he does use it for more than 4 hours a night. 01/03/2023 the patient is here for pulmon myles follow-up visit. The patient had been hospitalized with worsening respiratory symptoms. He had been on a prednisone taper. However, now is completely off. He has been using his nebulized therapy in addition to his respiratory medications. Continues to have chest tightness and wheezing. He is also having coughing. Moderate severity. The patient has been on multiple medication now on biologic therapy. The only other option to try to improve his significant bronchospasms would be to try theophylline. He does have a history of atrial fibrillation so and to be careful with the dose. Will start him on a very small dose and see if he can tolerated. The hope is with the low-dose theophylline he may be able to be on less amount of prednisone. The patient also continues uses CPAP. He has not been getting supplies the of from the [employer], I did send a message to the [employer] and did fill out another script. The CPAP therapy has been very affecting beneficial for him. He does use it for more than 4 hours. However, without supplies the patient is not able to use it effectively. In the office we also reviewed his recent CT scan that he had 12/18/2022. There is interval improvement of the significant bronchiolitis and nodular densities appreciated on the CT scan back in he was in the hospital in September/October. 03/14/2023 the patient is here [facility]. The patient has been having hard time with his breathing. Having significant chest tightness and wheezing. Moderate to severe. The patient was started on theophylline during the last visit. Although he started developing some uncomfortable symptoms with nausea and headaches and therefore the patient has stopped it. Once she stopped the medication symptoms her side effects got better. He is also been dealing with some cardiac medication changes. The patient also has been off the prednisone altogether specially because of his other comorbidities. He also has been on the biologic therapy, Tezspire. still having hard time with his breathing. He has significant chest tightness and wheezing on exam. We did provide him Solu-Medrol because of significant wheezing. He is going to have to start prednisone again. Will try to keep him on a low dose. 04/18/2023 the patient is here for a pul monary follow-up visit. He is doing a lot better. He is back on his regular maintenance therapies which appeared to be effective in beneficial. He has been on a very low dose of prednisone of 10 mg daily. He is wondering if he can cut back a little bit. I did give him instructions on how to go very slowly down on the medication. He has been on the Tezspire biologic injections every month and appears to be working well for him. He is also continued the nebulized therapy at least twice a day. The patient also continues uses CPAP at nighttime. CPAP therapy continues to be affecting beneficial. He does use it for more than 4 hours a night. His CPAP machine is now greater than 7 years old. Although still working well. Therefore no need to replace at this time. Although will reassess during his next visit. [facility] Medical History Chronic lung disease Tubular adenoma of colon (~2005) COPD (chronic obstructive pulmonary disease) Pulmonary nodules RAYMOND on CPAP Chronic rhinitis Asthma-COPD overlap syndrome PAF (paroxysmal atrial fibrillation) (~2017) Echocardiogram abnormal Encounter for screening for lung cancer Edema leg Venous insufficiency of both lower extremities AC (acromioclavicular) joint arthritis BPH (benign prostatic hyperplasia) Seasonal allergies Hyperlipidemia Surgical History History of appendectomy History of esophagogastroduodenoscopy (EGD) History of total left hip replacement (~2019) History of repair of right rotator cuff (~2017) History of nasal septoplasty (~2008) History of colonoscopy History of cataract (~2009) Family History Father No problems noted. Mother CAD (coronary artery disease) CHF (congestive heart failure) HTN (hypertension) Brother No problems noted. Brother No problems noted. Sister No problems noted. Sister No problems noted. Sister No problems noted. Son No problems noted. Son No problems noted. Social History Household Members: Spouse Housing: House Do you presently have visiting nurse or other home services: No Alcohol intake: current Alcohol intake frequency: holidays/special occasions only Patient Tobacco Use Status: Former Tobacco user Tobacco use type: Cigarette Years Smoked: 40 years e-Cigarette/Vaping Use: Former Use Second Hand Smoke Exposure: No service: Yes Current occupational status: retired Cognitive needs: No Hearing needs: No Vision needs: No Review of Systems Const Reports weight gain Eyes Denies change in vision ENT Reports nasal congestion, Reports nasal discharge and Reports sore throat Card Denies chest pain and Reports dyspnea on exertion Resp Denies change in phlegm color, Denies chest congestion, Reports cough, Denies hemoptysis, Denies excessive phlegm production, Reports dyspnea on exertion and Reports wheezing GI Reports no additional complaints Musc Reports no additional complaints Skin/Breast Denies rash Neuro Reports no additional complaints Psych Reports no additional complaints Endo Denies heat intolerance Kelvin/Lymph Denies easy bleeding, Denies easy bruising and Denies lymphadenopathy Aller/Immun Reports wheezing Physical Exam Vital Signs: Last Vital Signs Pulse 78 04/18/23 11:13 BP 140/80 H 04/18/23 11:13 Pulse Ox 97 04/18/23 11:13 BMI result Body Mass Index 31.2 Const General: alert Orientation/consciousness: patient oriented x3 Eyes Pupils: Equal, round and reactive pupils present Neck Neck: Yes normal visual inspection, Yes full ROM and Yes no lymphadenopathy Chest Chest palpation & inspection: normal inspection of the chest Resp Effort & Inspection: no cough and prolonged expiratory phase Auscultation: no rhonchi, no wheezes and diminished lung sounds Cardio Rate: regular rate Rhythm: regular rhythm Heart sounds: S1 normal heart sound present and S2 normal heart sound present GI Palpation (GI): Soft to palpation and nontender Auscultation: normal bowel sounds General: Yes no CVA tenderness Back/Spine/Pelvis Back: no CVA tenderness Skin General skin exam: no rashes or lesions noted Neuro General: patient oriented x3 Cranial nerves: Yes Equal, round and reactive pupils present Extrem General: Yes no clubbing, cyanosis or edema Assessment & Plan Assessment & Plan (1) Asthma-COPD overlap syndrome: Code(s): J44.9 - Chronic obstructive pulmonary disease, unspecified (2) COPD (chronic obstructive pulmonary disease): Code(s): J44.9 - Chronic obstructive pulmonary disease, unspecified Qualifiers: COPD type: COPD with acute lower respiratory infection Qualified Code(s): J44.0 - Chronic obstructive pulmonary disease with (acute) lower respiratory infection (3) Pulmonary nodules: Code(s): R91.8 - Other nonspecific abnormal finding of lung field (4) RAYMOND on CPAP: Code(s): G47.33 - Obstructive sleep apnea (adult) (pediatric); Z99.89 - Dependence on other enabling machines and devices (5) Chronic rhinitis: Code(s): J31.0 - Chronic rhinitis Plan continue prednisone 10mg, will slowly taper to 10mg every other day continue Tezspire [id number] continue Brovana/BUdesonide BID ANN as needed continue APAP F/U 4 months Coding Level of Care Code Est Pt Level 4 (58774) Diagnoses Asthma-COPD overlap syndrome J44.9 Chronic obstructive pulmonary disease with acute lower respiratory infection J44.0 COPD type: COPD with acute lower respiratory infection Pulmonary nodules R91.8 RAYMOND on CPAP G47.33; Z99.89 Chronic rhinitis J31.0 Time Spent (min) 16
[2023-04-18 11:13] VITALS: BP 140/80; PULSE 78; O2SAT 97; BMI 31.2
== END 2023-04-18 11:31 | disposition home or self-care (01) ==
PROVIDERS: PCP Family Medicine; Visit Provider Hospitalist
DX: J44.9 Chronic obstructive pulmonary disease, unspecified (principal); J44.0 Chronic obstructive pulmonary disease with (acute) lower respiratory infection; R91.8 Other nonspecific abnormal finding of lung field; G47.33 Obstructive sleep apnea (adult) (pediatric); Z99.89 Dependence on other enabling machines and devices; J31.0 Chronic rhinitis
CPT/HCPCS: 99214

== ENCOUNTER → 2023-04-18 11:07 | Outpatient (BNVA) | payer MEDICARE, OTHER, SELFPAY | PROVIDERS: PCP Family Medicine; Visit Provider Hospitalist | DX: J44.0 Chronic obstructive pulmonary disease with (acute) lower respiratory infection (principal); R91.8 Other nonspecific abnormal finding of lung field; G47.33 Obstructive sleep apnea (adult) (pediatric); J31.0 Chronic rhinitis; Z99.89 Dependence on other enabling machines and devices | CPT/HCPCS: 99212 ==

== ENCOUNTER 2023-05-29 10:20 | Outpatient (AMB) | payer MEDICARE, OTHER, SELFPAY ==
--- NOTE | 2023-05-29 10:26 | ...WebTmpl.AM.BPCHK ---
Intake Intake Visit Reasons: f/u HTN, HLD, elevated creatinine, see comments Allergies watermelon [WATERMELON] Allergy (Severe, Verified 04/18/23 11:20) ANAPHYLAXIS Iodinated Contrast Media [IV CONTRAST] Allergy (Intermediate, Verified 04/18/23 11:20) LIGHT HEADED AND SHORTNESS OF BREATH Coding
[2023-05-29 10:29] VITALS: BP 130/52; PULSE 72; O2SAT 96; BMI 31.5
--- NOTE | 2023-05-29 10:29 | A.OFFPC_ITS ---
Vital Signs 05/29/23 10:29 Height 5 ft 9 in Weight 213 lb 4 oz BMI 31.5 BP 130/52 L Blood Pressure Location Lt brachial Position Sitting Pulse 72 Pulse Source Auscultation Pulse Oximetry (%) 96 Oxygen Delivery Method Room Air Intake Visit Reasons: f/u HTN, HLD, elevated creatinine, see comments Intake Note: Patient is here to follow up on blood work today. Patient has had nose bleeds on the right side, 3-4 months. Allergies watermelon [WATERMELON] Allergy (Severe, Verified 05/29/23 10:31) ANAPHYLAXIS Iodinated Contrast Media [IV CONTRAST] Allergy (Intermediate, Verified 05/29/23 10:31) LIGHT HEADED AND SHORTNESS OF BREATH Tobacco use date assessed: 05/29/23 Dental Screening Dental Screen Date: 05/29/23 Did you have a dental visit in the last 12 months?: Yes Did you have a dental problem in the last 6 months where you did not have access to dental care?: No Was dental information given to patient?: Patient has dentist HPI f/u HTN, HLD, elevated creatinine, see comments HPI Details 67 y/o male presents to f/u hypertension , hyperlipidemia, elevated creatinine levels. Labs were drawn 01/28/23. Reviewed labs with pt. Creatinine level worsened from 1.63 to 2.59. 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 Blood pressure today 130/52. He is on lisinopril 20mg. Pulse today in the 70s. No recent lipid panel to review. Pt reports nose bleeds on R side, x3-4 months. [facility] Medical History Chronic lung disease Tubular adenoma of colon (~2005) COPD (chronic obstructive pulmonary disease) Pulmonary nodules RAYMOND on CPAP Chronic rhinitis Asthma-COPD overlap syndrome PAF (paroxysmal atrial fibrillation) (~2017) Echocardiogram abnormal Encounter for screening for lung cancer Edema leg Venous insufficiency of both lower extremities AC (acromioclavicular) joint arthritis BPH (benign prostatic hyperplasia) Seasonal allergies Hyperlipidemia Surgical History History of appendectomy History of esophagogastroduodenoscopy (EGD) History of total left hip replacement (~2019) History of repair of right rotator cuff (~2017) History of nasal septoplasty (~2008) History of colonoscopy History of cataract (~2009) Family History Father No problems noted. Mother CAD (coronary artery disease) CHF (congestive heart failure) HTN (hypertension) Brother No problems noted. Brother No problems noted. Sister No problems noted. Sister No problems noted. Sister No problems noted. Son No problems noted. Son No problems noted. Social History Household Members: Spouse Housing: House Do you presently have visiting nurse or other home services: No Alcohol intake: current Alcohol intake frequency: holidays/special occasions only Patient Tobacco Use Status: Former Tobacco user Tobacco use type: Cigarette Years Smoked: 40 years e-Cigarette/Vaping Use: Former Use Second Hand Smoke Exposure: No service: Yes Current occupational status: retired Cognitive needs: No Hearing needs: No Vision needs: No Questionnaire Thrive Questionnaire Date Thrive assessed: 06/28/22 STEVEN-7 AMB Questionnaire STEVEN-7 Date STEVEN - 7 assessed: 06/28/22 Source: Developed by Drs. Kwame William, Cayla Candelario, Damian Lee and colleagues, with an educational maria g from [employer]. Review of Systems Const Denies chills, Denies fatigue, Denies fever(s), Denies headache(s) and Denies weakness ENT Denies dizziness and Denies headache(s) Card Denies chest pain, Denies lightheadedness, Denies dyspnea and Denies other (Palpitations) Resp Denies cough, Denies dyspnea, Denies wheezing and Denies other ( shortness of breath) Musc Denies numbness and Denies tingling Neuro Denies dizziness, Denies headache(s), Denies numbness, Denies tingling, Denies paresthesias and Denies weakness Psych Denies anxiety and Denies depression Endo Denies fatigue Aller/Immun Denies wheezing Physical exam (Primary Care) Vital Signs: Last Vital Signs Pulse 54 05/29/23 10:29 BP 130/52 L 05/29/23 10:29 Pulse Ox 96 05/29/23 10:29 Oxygen Delivery Method Room Air 05/29/23 10:29 BMI result Body Mass Index 31.5 Tobacco/Smoking Status: Tobacco use Status Tobacco use date assessed 05/29/23 05/29/23 10:32 Patient Tobacco Use Status Former Tobacco user 05/29/23 10:32 Tobacco use type Cigarette 05/29/23 10:32 e-Cigarette/Vaping Use Former Use 05/29/23 10:32 Thrive Assessment: Date of Thrive Assessment Date Thrive assessed 06/28/22 05/29/23 10:32 Const General: no acute distress and well developed Nutritional Appearance: well nourished Orientation/consciousness: patient oriented x3 HENMT Head: Yes normocephalic and Yes atraumatic Eyes General: appearance normal, both eyes and all related structures Pupils: Equal, round and reactive pupils present EOM: EOMs intact bilaterally Resp Effort & Inspection: normal respiratory effort Auscultation: clear to auscultation bilaterally Cardio Rate: regular rate Rhythm: regular rhythm Heart sounds: S1 normal heart sound present, S2 normal heart sound present, no gallops, no murmurs and no rubs Neuro General: patient oriented x3 and gait normal Cranial nerves: Yes Equal, round and reactive pupils present Psych Affect: normal affect Assessment and Plan Assessment & Plan (1) Hypertension: Code(s): I10 - Essential (primary) hypertension Plan: Blood?pressure?shows?fair?control?however?patient's?creatinine?level?is?high?and ?he?is?on?lisinopril?as?well?as?furosemide. Has?significant?lower?extremity?edema?which?is?fairly?well?contro lled?with?furosemide.??Likely?amlodipine?and?other?calcium?channel?blockers?woul d?worsen?this. Other?diuretics?and ACEi and ARBs would?likely?worsened?renal?function Beta-blockers?may exacerbate?his?a sthma?but?this?is?well?controlled.??We?discussed?watching?out?for?any?worsening? of?his?asthma?which?may?be?attributed?to?new?medication;?metoprolol?ER 100?mg?daily (2) Elevated serum creatinine: Code(s): R79.89 - Other specified abnormal findings of blood chemistry Plan: He?will?recheck?in ?a?couple?weeks?this?after?stopping?lisinopril?and?starting?metoprolol We?will?follow-up?in?a?month If?renal?function?is?the?same?or?worse,?will?refer?him?to?Nephrology (3) Hyperlipidemia: Code(s): E78.5 - Hyperlipidemia, unspecified Plan: He?will?get?lipids?checked?with?his?next?lab?draw (4) Epistaxis: Code(s): R04.0 - Epistaxis Plan: Rhinitis?and?epistaxis?which?is?occurring?a?couple?of?times?a?week He?is?also?on?Eliquis As?rhinitis?seems?to?be?a?significant?feature,?will?try?some?Flonase.??Also?advi sed?nasal?saline?and?humidified?air He?sees?an?ENT?and?I?recommended?he?follow-up?with?him. He?should?go?to?the?emergency?department?if?he?has?nosebleeds?which?he?can?not?c ontrol/do?not?stop. Medications: New metoprolol succinate ER 100 mg PO DAILY 90 days 90 tabs 3RF fluticasone propionate 50 mcg/actuation (Flonase Allergy Relief) administer into each nostril 1 spray intranasal Q12H 30 days 16 grams 2RF Discontinued lisinopril Discontinued Reason: Doctor's Order 20 mg PO DAILY 90 days 90 tabs 3RF Coding Level of Care Code Est Pt Level 4 (71721) Diagnoses Hypertension I10 Elevated serum creatinine R79.89 Hyperlipidemia E78.5 Epistaxis R04.0
== END 2023-05-29 11:14 | disposition home or self-care (01) ==
PROVIDERS: PCP Family Medicine; Visit Provider Family Medicine
DX: I10 Essential (primary) hypertension (principal); R79.89 Other specified abnormal findings of blood chemistry; E78.5 Hyperlipidemia, unspecified; R04.0 Epistaxis
CPT/HCPCS: 99214

== ENCOUNTER 2023-06-24 11:12 | Outpatient (REF) | payer MEDICARE, OTHER, SELFPAY ==
[2023-06-24 13:49] LABS: Alanine Aminotransferase 21 U/L (0-40); Albumin Level 3.6 g/dL (3.5-5.0); Alkaline Phosphatase 84 U/L (39-117); Anion Gap 12 (12-20); Aspartate Amino Transferase 13 U/L (5-37); Bilirubin Total 0.3 mg/dL (0.0-1.0); Blood Urea Nitrogen 19 mg/dL (9-16); Calcium 8.8 mg/dL (8.4-10.2); Carbon Dioxide 26 mmol/L (22-29); Chloride 111 mmol/L (96-108); Cholesterol 130 mg/dL (<200); Estimated Glomerular Filt Rate 40; Glucose Fasting 93 mg/dL (60-99); HDL Cholesterol 61 mg/dL (>40); LDL Cholesterol Calculated 57 mg/dL (<100); Potassium 4.2 mmol/L (3.3-5.1); Sodium 145 mmol/L (135-145); Total Protein 6.6 g/dL (6.5-8.0); Triglycerides 64 mg/dL (<150)
[2023-06-24 13:51] LABS: Creatinine Urine 279.85 mg/dL; Microalbum/Creatinine Ratio Ur 17.8 ug/mg cr (<30)
== END 2023-06-24 11:13 | disposition home or self-care (01) ==
LOC: HO.HMGCLDS 11:12
PROVIDERS: PCP Family Medicine; Visit Provider Family Medicine
DX: Z00.00 Encounter for general adult medical examination without abnormal findings (principal); I10 Essential (primary) hypertension
CPT/HCPCS: 36415; 80053; 80061; 82043; 82570

== ENCOUNTER 2023-06-26 13:49 | Outpatient (AMB) | payer MEDICARE, OTHER, SELFPAY ==
--- NOTE | 2023-06-26 13:56 | A.OFFVIS_ITS ---
Intake Vital Signs 06/26/23 13:59 Height 5 ft 9 in Weight 220 lb 7.396 oz BMI 32.6 BP 130/52 L Blood Pressure Location Lt brachial Position Sitting Pulse 64 Intake Visit Reasons: 6 mth f/up Intake Note: pt kits in office today for a 6 month f/up pt states that he its fine with no symptoms. Detective [place] Required: No Accompanied by: Self / Same As Patient Allergies watermelon [WATERMELON] Allergy (Severe, Verified 05/29/23 10:31) ANAPHYLAXIS Iodinated Contrast Media [IV CONTRAST] Allergy (Intermediate, Verified 05/29/23 10:31) LIGHT HEADED AND SHORTNESS OF BREATH Medication List - Last Reconciled 06/26/23 by Sanjay Seymour MD albuterol sulfate 90 mcg/actuation 2 puffs inhalation QID apixaban (Eliquis) 5 mg PO BID arformoterol (Brovana) 15 mcg (2 mL) inhalation BID atorvastatin 80 mg PO DAILY budesonide 0.5 mg (2 mL) inhalation BID bupropion HCl 150 mg (2 x 75 mg) PO BID 90 days cefpodoxime 200 mg PO BID CPAP (CPAP Machine/Device) As directed doxycycline hyclate 100 mg PO BID 10 days dronedarone (Multaq) 400 mg PO BID 90 days fluticasone propionate 220 mcg/actuation (Flovent HFA) 1 puff inhalation Q12H fluticasone propionate 50 mcg/actuation (Flonase Allergy Relief) 1 spray intranasal Q12H 30 days furosemide 20 mg PO DAILY levalbuterol HCl 1.25 mg (3 mL) inhalation BID 90 days lisinopril 20 mg PO BID metoprolol succinate ER 100 mg PO DAILY 90 days montelukast 10 mg PO DAILY nebulizers As directed prednisone 20 mg (2 x 10 mg) PO DAILY 30 days roflumilast (Daliresp) 500 mcg PO DAILY tamsulosin (Flomax) 0.4 mg PO BID 90 days tezepelumab-ekko (Tezspire) 210 mg subcut Q4W theophylline ER 150 mg (1/2 x 300 mg) PO Q12H 30 days HPI HPI Comments 2 History of Present Illness Details Pleasant 68 gentleman here for follow-up. He has background of paroxysmal atrial fibrillation. Previously was not on anticoagulation. Underwent carotid ultrasound for carotid bruit which showed evidence of carotid stenosis. He underwent CTA which showed nonsignificant stenosis. He has seen Dr. Mello in the past. He has been on anticoagulation and has been stable. No bleeding issues. Denies any chest discomfort shortness of breath. Blood pressure control is optimal. 06/26/23: He returns for follow-up. He h as been doing well. No palpitations. No chest discomfort. He has COPD and gets dyspnea due to lung disease. He is following closely with pulmonology. He is on multiple inhalers and medications. Overall he is saying that he is stable from his lungs point of view 2. [facility] Medical History Chronic lung disease Tubular adenoma of colon (~2005) COPD (chronic obstructive pulmonary disease) Pulmonary nodules RAYMOND on CPAP Chronic rhinitis Asthma-COPD overlap syndrome PAF (paroxysmal atrial fibrillation) (~2017) Echocardiogram abnormal Encounter for screening for lung cancer Edema leg Venous insufficiency of both lower extremities AC (acromioclavicular) joint arthritis BPH (benign prostatic hyperplasia) Seasonal allergies Hyperlipidemia Surgical History History of appendectomy History of esophagogastroduodenoscopy (EGD) History of total left hip replacement (~2019) History of repair of right rotator cuff (~2017) History of nasal septoplasty (~2008) History of colonoscopy History of cataract (~2009) Family History Father No problems noted. Mother CAD (coronary artery disease) CHF (congestive heart failure) HTN (hypertension) Brother No problems noted. Brother No problems noted. Sister No problems noted. Sister No problems noted. Sister No problems noted. Son No problems noted. Son No problems noted. Social History Household Members: Spouse Housing: House Do you presently have visiting nurse or other home services: No Alcohol intake: current Alcohol intake frequency: holidays/special occasions only Patient Tobacco Use Status: Former Tobacco user Tobacco use type: Cigarette Years Smoked: 40 years e-Cigarette/Vaping Use: Former Use Second Hand Smoke Exposure: No service: Yes Current occupational status: retired Cognitive needs: No Hearing needs: No Vision needs: No Review of Systems Const Denies chills, Denies fatigue, Denies fever(s), Denies frequent falls, Denies weakness, Denies weight gain and Denies weight loss ENT Denies dizziness Card Denies chest pain, Denies leg edema, Denies lightheadedness, Denies palpitations, Denies dyspnea and Denies dyspnea on exertion Resp Denies cough, Denies dyspnea and Denies dyspnea on exertion GI Denies hematochezia Musc Denies abnormal gait, Denies muscle weakness, Denies numbness, Denies radiating pain into limb and Denies tingling Neuro Denies abnormal gait, Denies dizziness, Denies frequent falls, Denies numbness, Denies tingling and Denies weakness Endo Denies fatigue and Denies palpitations Physical Exam Vital Signs: BMI result Body Mass Index 32.6 GENERAL APPEARANCE: in no acute distress, well developed, well nourished. NECK/THYROID: no jugular venous distention, left carotid bruit. SKIN: no suspicious lesions, warm and dry. HEART: no murmurs, regular rate and rhythm, S1, S2 normal. LUNGS: Mild expiratory wheezes. ABDOMEN: normal, bowel sounds present, soft, nontender, nondistended. EXTREMITIES: no clubbing, cyanosis. PERIPHERAL PULSES: equal. NEUROLOGIC: nonfocal, motor strength normal upper and lower extremities, sensory exam intact. Office Procedures EKG Details: Sinus rhythm 64 beats per minute, normal axis, normal ECG, QTC 408 milliseconds. [id number], Complete Assessment & Plan Assessment & Plan (1) Hypertension: Code(s): I10 - Essential (primary) hypertension (2) PAF (paroxysmal atrial fibrillation): Onset Date: ~2017 Code(s): I48.0 - Paroxysmal atrial fibrillation Plan Pleasant 68-year-old gentleman who is here for follow-up. He has background history of paroxysmal atrial fibrillation. He has been on apixaban for anticoagulation and on Multaq for rhythm control strategy. He has done well with this strategy and has been in sinus rhythm. Repeat EKG in the office is showing sinus rhythm. He has dyspnea on exertion which is chronic and is due to underlying advanced COPD. He follows up closely with pulmonology. He can follow up with us once a year. Thank you for allowing me to participate in the care of your patient. Please feel free to contact me if you have any questions. Coding Level of Care Code Est Pt Level 4 (57480) Diagnoses Hypertension I10 PAF (paroxysmal atrial fibrillation) I48.0 CPT Codes EKG - CPT: 18928-[id number], Complete ([id number])
[2023-06-26 13:59] VITALS: BP 130/52; PULSE 64; BMI 32.6
== END 2023-06-26 14:22 | disposition home or self-care (01) ==
PROVIDERS: PCP Family Medicine; Visit Provider Internal Medicine Cardiovascular Disease
DX: I10 Essential (primary) hypertension (principal); I48.0 Paroxysmal atrial fibrillation
CPT/HCPCS: 93010; 99214

== ENCOUNTER → 2023-06-26 13:49 | Outpatient (BNVA) | payer MEDICARE, OTHER, SELFPAY | PROVIDERS: PCP Family Medicine; Visit Provider Internal Medicine Cardiovascular Disease | DX: I48.0 Paroxysmal atrial fibrillation (principal); I10 Essential (primary) hypertension | CPT/HCPCS: 93005; 99212 ==

== ENCOUNTER 2023-06-27 10:22 | Outpatient (AMB) | payer MEDICARE, OTHER, SELFPAY ==
[2023-06-27 10:42] VITALS: BP 128/78; PULSE 68; O2SAT 98; BMI 32.6
--- NOTE | 2023-06-27 10:42 | A.OFFPC_ITS ---
Vital Signs 06/27/23 10:42 Height 5 ft 9 in Weight 221 lb BMI 32.6 BP 128/78 Blood Pressure Location Lt brachial Position Sitting Pulse 68 Pulse Source Pulse Oximeter Pulse Oximetry (%) 98 Oxygen Delivery Method Room Air Intake Visit Reasons: f/u elevated creatinine levels and labs Intake Note: Patient is here to follow up on new blood pressure med and labs. Allergies watermelon [WATERMELON] Allergy (Severe, Verified 06/27/23 10:44) ANAPHYLAXIS Iodinated Contrast Media [IV CONTRAST] Allergy (Intermediate, Verified 06/27/23 10:44) LIGHT HEADED AND SHORTNESS OF BREATH Tobacco use date assessed: 06/27/23 Fall risk assessment: No Falls in past year Last assessed Fall Risk: 06/27/23 Dental Screening Dental Screen Date: 06/27/23 Did you have a dental visit in the last 12 months?: Yes Did you have a dental problem in the last 6 months where you did not have access to dental care?: No Was dental information given to patient?: Patient has dentist HPI f/u elevated creatinine levels and labs HPI Details 68 y/o male presents to f/u elevated cre atinine levels and labs. Blood pressure today 128/78. He is on lisinopril 20mg and metoprolol 100mg daily. Labs were drawn 06/24/23. Reviewed labs with pt. Creatinine level improved from 2.59 to 1.73. Triglycerides 64. TC 130. LDL 57. HDL 61. Pt reports swelling on his lower extremities. [facility] Medical History Chronic lung disease Tubular adenoma of colon (~2005) COPD (chronic obstructive pulmonary disease) Pulmonary nodules RAYMOND on CPAP Chronic rhinitis Asthma-COPD overlap syndrome PAF (paroxysmal atrial fibrillation) (~2017) Echocardiogram abnormal Encounter for screening for lung cancer Edema leg Venous insufficiency of both lower extremities AC (acromioclavicular) joint arthritis BPH (benign prostatic hyperplasia) Seasonal allergies Hyperlipidemia Surgical History History of appendectomy History of esophagogastroduodenoscopy (EGD) History of total left hip replacement (~2019) History of repair of right rotator cuff (~2017) History of nasal septoplasty (~2008) History of colonoscopy History of cataract (~2009) Family History Father No problems noted. Mother CAD (coronary artery disease) CHF (congestive heart failure) HTN (hypertension) Brother No problems noted. Brother No problems noted. Sister No problems noted. Sister No problems noted. Sister No problems noted. Son No problems noted. Son No problems noted. Social History Household Members: Spouse Housing: House Do you presently have visiting nurse or other home services: No Alcohol intake: current Alcohol intake frequency: holidays/special occasions only Patient Tobacco Use Status: Former Tobacco user Tobacco use type: Cigarette Years Smoked: 40 years e-Cigarette/Vaping Use: Former Use Second Hand Smoke Exposure: No service: Yes Current occupational status: retired Cognitive needs: No Hearing needs: No Vision needs: No Questionnaire PHQ-9 Over the last 2 weeks, how often have you been bothered by any of the following problems? 1. Little interest or pleasure in doing things: not at all 2. Feeling down, depressed, or hopeless: not at all 3. Trouble falling or staying asleep, or sleeping too much: not at all 4. Feeling tired or having little energy: not at all 5. Poor appetite or overeating: not at all 6. Feeling bad about yourself - or that you are a failure or have let yourself or your family down: not at all 7. Trouble concentrating on things, such as reading the newspaper or watching television: not at all 8. Moving or speaking so slowly that other people could have noticed. Or the opposite - being so fidgety or restless that you have been moving around a lot more than usual: not at all 9. Thoughts that you would be better off or of hurting yourself in some way: not at all Total score: 0 Source: Developed by Drs. Kwame William, Cayla Candelario, Damian Lee and colleagues, with an educational maria g from [employer]. Thrive Questionnaire Date Thrive assessed: 06/27/23 I am a: Patient What is your living situation today?: I have a steady place to live Within the past 12 months, did the food you bought not last and you didn't have the money to get more?: Never true Within the past 12 months, did you worry whether your food would run out before you got money to buy more?: Never true Do you have trouble paying for medicines?: No Do you have trouble getting transportation to medical appointments?: No Do you have trouble paying your heating and electricity bill?: No Do you have trouble taking care of your child, family member or friend?: No Do you have trouble with day-to-day activities such as bathing, preparing meals, shopping, managing finances, etc.?: No Are you currently unemployed and looking for a job?: No Are you interested in more education?: No THRIVE Score: 0 AUDIT C Alcohol Use Questionnaire (AUDIT-C) 1. How often do you have a drink containing alcohol?: 2-4 times a month 2. How many drinks containing alcohol do you have on a typical day when you are drinking?: 1 or 2 3. How often do you have six or more drinks on one occasion?: Never Total Score: 2 STEVEN-7 AMB Questionnaire STEVEN-7 Date STEVEN - 7 assessed: 06/27/23 Feeling nervous, anxious, or on edge: 0 = Not at all Not being able to stop or control worryin = Not at all Worrying too much about different things: 0 = Not at all Trouble relaxin = Not at all Being so restless that it is hard to sit still: 0 = Not at all Becoming easily annoyed or irritable: 0 = Not at all Feeling afraid as if something awful might happen: 0 = Not at all Total STEVEN-7 score (0-4 normal; 5-9 mild; 10-14 moderate; 15-21 severe): 0 Source: Developed by Drs. Kwame William, Cayla Candelario, Damian Lee and colleagues, with an educational maria g from [employer]. Review of Systems Const Denies chills, Denies fatigue, Denies fever(s), Denies headache(s) and Denies weakness ENT Denies dizziness and Denies headache(s) Card Denies chest pain, Denies lightheadedness, Denies dyspnea and Denies other (Palpitations) Resp Denies cough, Denies dyspnea, Denies wheezing and Denies other ( shortness of breath) Musc Denies numbness and Denies tingling Neuro Denies dizziness, Denies headache(s), Denies numbness, Denies tingling, Denies paresthesias and Denies weakness Psych Denies anxiety and Denies depression Endo Denies fatigue Aller/Immun Denies wheezing Physical exam (Primary Care) Vital Signs: Last Vital Signs Pulse 68 06/27/23 10:42 BP 128/78 06/27/23 10:42 Pulse Ox 98 06/27/23 10:42 Oxygen Delivery Method Room Air 06/27/23 10:42 BMI result Body Mass Index 32.6 Tobacco/Smoking Status: Tobacco use Status Tobacco use date assessed 06/27/23 06/27/23 10:44 Patient Tobacco Use Status Former Tobacco user 06/27/23 10:44 Tobacco use type Cigarette 06/27/23 10:44 e-Cigarette/Vaping Use Former Use 06/27/23 10:44 PHQ-9: PHQ-9 Score PHQ-9: Total score 0 06/27/23 11:23 Thrive Assessment: Date of Thrive Assessment Date Thrive assessed 06/27/23 06/27/23 10:50 Const General: no acute distress and well developed Nutritional Appearance: well nourished Orientation/consciousness: [facility]3 [facility]: Yes normocephalic and Yes atraumatic Eyes General: appearance normal, both eyes and all related structures Pupils: Equal, round and reactive pupils present EOM: EOMs intact bilaterally Resp Effort & Inspection: normal respiratory effort Auscultation: clear to auscultation bilaterally Cardio Rate: regular rate Rhythm: regular rhythm Heart sounds: S1 normal heart sound present, S2 normal heart sound present, no gallops, no murmurs and no rubs Neuro General: patient oriented x3 and gait normal Cranial nerves: Yes Equal, round and reactive pupils present Extrem Other: 1+ edema bilateral lower extremity Psych Affect: normal affect Assessment and Plan Assessment & Plan (1) Hypertension: Code(s): I10 - Essential (primary) hypertension Plan: Blood?pressure?is?controlled. Continue?current?medication - metoprolol Lungs?are?clear,?no?appreciated?exacerbation?of?his?asthma. (2) Renal failure: Code(s): N19 - Unspecified kidney failure Plan: Creatinine?has?improved?since?stopping?lisinopril. Patient?discontinued?furosemide?due?to?cramping?and?this?was?just?previous?to?ge tting?his?labs?drawn - renal?function?may?improve?further. He?will?wait?a?week?and?get?his?blood?drawn?again?to?re-evaluate?renal?function. He?will?stay?off?lisinopril?for?now?and?continue?metoprolol (3) Hyperlipidemia: Code(s): E78.5 - Hyperlipidemia, unspecified Plan: Lipids?show?good?control. Continue?current?medication (4) Swelling of lower extremity: Code(s): M79.89 - Other specified soft tissue disorders Plan: Patient?has?some?edema?of?lower?extremities?since?stopping?furosemide?which?was? causing?cramping?when?taking?it?regularly. He?will?switch?to?a?strategy?of?using?for?2-3?days?when?he?has?si gnificant?swelling?and?hold?otherwise. Elevate?legs Avoid?salt/sodium Orders: Orders Basic Metabolic Panel Today N19 - Unspecified kidney failure, Z00.00 - Encounter for general adult medical examination without abnormal findings Medications: Refilled metoprolol succinate ER 100 mg PO DAILY 90 days 90 tabs 3RF Coding Level of Care Code Est Pt Level 4 (50619) Diagnoses Hypertension I10 Renal failure N19 Hyperlipidemia E78.5 Swelling of lower extremity M79.89
== END 2023-06-27 11:37 | disposition home or self-care (01) ==
PROVIDERS: PCP Family Medicine; Visit Provider Family Medicine
DX: I10 Essential (primary) hypertension (principal); N19 Unspecified kidney failure; E78.5 Hyperlipidemia, unspecified; M79.89 Other specified soft tissue disorders
CPT/HCPCS: 99214

== ENCOUNTER 2023-08-05 20:21 | Inpatient (IN) | payer MEDICARE, OTHER, SELFPAY ==
--- NOTE | 2023-08-05 | ECG_ITS ---
Test Reason : DYSPENA Blood Pressure : / mmHG Vent. Rate : 096 BPM Atrial Rate : 096 BPM P-R Int : 164 ms QRS Dur : 078 ms QT Int : 334 ms P-R-T Axes : 070 054 081 degrees QTc Int : 421 ms Normal sinus rhythm Nonspecific ST and T wave abnormality Abnormal ECG When compared with ECG of 12-OCT-2022 17:34, No significant change was found Referred By: Generic ED Physician Electronically Signed By:MAURA BIRMINGHAM
--- NOTE | ~2023-08-05 | XR_ITS ---
EXAMINATION: XR CHEST CLINICAL INFORMATION: Shortness of breath. COMPARISON: Chest radiograph 10/12/2022. TECHNIQUE: 2 views of the chest were obtained. FINDINGS: Normal heart size. Chronic interstitial thickening. Some of the previously described airspace opacities are resolved, however there are a few new focal hazy airspace opacities, for instance as identified in the lateral right upper lobe at the level of the fifth through seventh rib and left lower lobe at the level of the posterior ninth rib. No pleural effusion or pneumothorax. No acute osseous findings. Right humeral head surgical anchors are seen. XR/XR chest 2V IMPRESSION: Chronic interstitial thickening with waxing and wanning multifocal airspace opacities suspicious for an infectious/inflammatory process and small airways disease. Recommend short-term follow-up to ensure appropriate resolution and rule out occult malignancy.
[2023-08-05 20:42] VITALS: BP 138/63; PULSE 97; RESP 20; TEMP 37.1; O2SAT 95; BMI 28.5
[2023-08-05 21:22] LABS: MANUAL DIFF FLAG NO
[2023-08-05 21:23] LABS: Basophils Absolute Auto 0.1 X10*3/uL (0.0-0.2); Basophils Percent Auto 0.4 % (0-2); Eosinophils Absolute Auto 0.2 X10*3/uL (0.0-0.4); Eosinophils Percent Auto 1.3 % (0-4); Hematocrit 44.9 % (42.0-52.0); Hemoglobin 14.3 g/dl (14.0-18.0); Imm Gran Abs Auto 0.13 X10*3/uL (0.00-0.03); Lymphocytes Absolute Auto 1.1 X10*3/uL (1.2-4.9); Lymphocytes Percent Auto 8.2 % (20-40); Mean Corpuscular HGB Conc 31.8 g/dl (31.0-36.0); Mean Corpuscular Hemoglobin 30.1 pg (27.0-33.0); Mean Corpuscular Volume 94.5 fL (80.0-98.0); Mean Platelet Volume 9.1 fL (9.4-12.4); Monocytes Percent Auto 7.8 % (2-11); Neutrophils Absolute Auto 10.9 x10*3/uL (2.0-8.3); Neutrophils Percent Auto 81.3 % (45-73); Platelet Count 526 X10*3/uL (160-400); Red Blood Count 4.75 X10*6/uL (4.60-5.80); Red Cell Distribution Width 11.9 % (11.0-16.0); White Blood Count 13.4 X10*3/uL (4.8-10.8)
[2023-08-05 21:40] LABS: Alanine Aminotransferase 93 U/L (0-40); Albumin Level 3.5 g/dL (3.5-5.0); Alkaline Phosphatase 177 U/L (39-117); Anion Gap 15 (12-20); Aspartate Amino Transferase 41 U/L (5-37); Bilirubin Total 0.6 mg/dL (0.0-1.0); Blood Urea Nitrogen 20 mg/dL (9-16); Calcium 9.7 mg/dL (8.4-10.2); Carbon Dioxide 21 mmol/L (22-29); Chloride 109 mmol/L (96-108); Creatinine Clr Calc Pharmacy 46.9; Estimated Glomerular Filt Rate 42; Glucose Random 96 mg/dL (60-115); Potassium 5.3 mmol/L (3.3-5.1); Sodium 140 mmol/L (135-145); Total Protein 8.2 g/dL (6.5-8.0)
[2023-08-05 21:44] LABS: B Type Natriuretic Peptide 84 pg/mL (<100)
[2023-08-05 21:45] LABS: Troponin-I High Sensitivity 5.1 ng/L (<3.5-35.0)
[2023-08-05 22:01] LABS: Influenza A PCR NEGATIVE (Negative); Influenza B PCR NEGATIVE (Negative); Resp Syncy Virus RNA Qual PCR NEGATIVE (Negative); SARS COV2 PCR INHOUSE NEGATIVE (Negative)
[2023-08-05 22:14] VITALS: BP 134/60; PULSE 94; RESP 18; O2SAT 94
[2023-08-06] VITALS (15 sets, daily range): BP systolic 117–172; BP diastolic 53–75; PULSE 91–113; RESP 15–28; TEMP 36.6–37.1; O2SAT 90–96
--- NOTE | 2023-08-06 03:58 | ED_ITS ---
HPI - SOB/Dyspnea General Chief Complaint: Dyspnea Stated Complaint: diff breathing, vomiting, diarrhea Time Seen by Provider: 08/06/23 03:43 Source: patient Mode of arrival: ambulatory Limitations: no limitations History of Present Illness HPI Narrative: Patient comes to the emergency room complaining of worsening asthma/COPD symptoms. Patient states that this week he has been having recurrent asthma exacerbations, not responding very well to treatment as the usually do. Patient denies chest pain. Patient states the coughing does not allow him to sleep. Patient has had subjective fevers at home. Patient denies lower extremity swelling. Patient states that over the last this week, patient has been monitoring his oxygen at home. He has not O2 dependent. When hit when he walks, his oxygen drops to the high 70s. Related Data Home Medications Medication Instructions Recorded Confirmed albuterol sulfate 90 mcg/actuation 2 puff inhalation QID 11/23/21 06/26/23 aerosol inhaler CPAP (CPAP Machine/Device) 02/15/22 12/27/22 nebulizers 02/15/22 12/20/22 tezepelumab-ekko 210 mg/1.91 mL 210 mg subcut Q4W 03/22/22 06/26/23 (110 mg/mL) subcutaneous syringe (Tezspire) fluticasone propionate 220 1 puff inhalation Q12H 10/08/22 06/26/23 mcg/actuation HFA aerosol inhaler (Flovent HFA) lisinopril 20 mg tablet 20 mg PO BID 06/26/23 06/26/23 Previous Rx's Medication Instructions Recorded furosemide 20 mg tablet 20 mg PO DAILY #90 tabs 01/24/21 montelukast 10 mg tablet 10 mg PO DAILY #90 tabs 07/23/22 arformoterol 15 mcg/2 mL solution 15 mcg (2 mL) inhalation BID #360 09/17/22 for nebulization (Brovana) mL atorvastatin 80 mg tablet 80 mg PO DAILY #90 tabs 10/03/22 levalbuterol HCl 1.25 mg/3 mL 1.25 mg (3 mL) inhalation BID 90 10/11/22 solution for nebulization days #540 mL tamsulosin 0.4 mg capsule (Flomax) 0.4 mg PO BID 90 days #180 caps 12/11/22 bupropion HCl 75 mg tablet 150 mg (2 x 75 mg) PO BID 90 days 01/01/23 #360 tabs theophylline 300 mg 150 mg (1/2 x 300 mg) PO Q12H 30 01/03/23 tablet,extended release,12 hr days #30 tabs cefpodoxime 200 mg tablet 200 mg PO BID #20 tabs 03/14/23 doxycycline hyclate 100 mg capsule 100 mg PO BID 10 days #20 caps 03/14/23 prednisone 10 mg tablet 20 mg (2 x 10 mg) PO DAILY 30 days 03/14/23 #60 tabs dronedarone 400 mg tablet (Multaq) 400 mg PO BID 90 days #180 tabs 05/10/23 apixaban 5 mg tablet (Eliquis) 5 mg PO BID #180 tabs 05/21/23 budesonide 0.5 mg/2 mL suspension 0.5 mg (2 mL) inhalation BID #360 05/21/23 for nebulization mL fluticasone propionate 50 1 spray intranasal Q12H 30 days 05/29/23 mcg/actuation nasal #16 grams spray,suspension (Flonase Allergy Relief) metoprolol succinate 100 mg 100 mg PO DAILY 90 days #90 tabs 06/27/23 tablet,extended release 24 hr roflumilast 500 mcg tablet 500 mcg PO DAILY #90 tabs 07/02/23 Allergies Allergy/AdvReac Type Severity Reaction Status Date / Time watermelon [WATERMELON] Allergy Severe ANAPHYLAXIS Verified 08/05/23 20:42 Iodinated Contrast Media Allergy Intermediate LIGHT Verified 08/05/23 20:42 [IV CONTRAST] HEADED AND SHORTNESS OF BREATH Review of Systems 2 Review of Systems: Constitutional : No Weight loss, No Fever, No Chills, No Night Sweats, No Fatigue, No Malaise ENT/Mouth : No Hearing loss, No Ear Pain, No Nasal Congestion, No Sinus Pain, No Hoarseness, No sore throat, No Rhinorrhea, No Swallowing Difficulty Eyes: No Eye Pain, No Swelling, No Redness, No Foreign Body, No Discharge, No Vision Changes Cardiovascular : No Chest Pain, No SOB, No Dyspnea on Exertion, No Orthopnea, No Edema, No Palpitations Respiratory : Complaining of productive cough, wheezing, shortness of breath worse with exertion Gastrointestinal : No Nausea, No Vomiting, No Diarrhea, No Constipation, No abdominal Pain, No Hematochezia, No Melena Genitourinary : no irregular bleeding, No Dysuria, No Urinary Frequency, No Hematuria, No Urinary Incontinence, No Urgency, No Flank Pain, No Urinary Flow Changes, No Hesitancy Musculoskeletal : No joint pain, No Myalgias, No Joint Swelling Skin : No Skin Lesions, No rash Neuro : No Weakness, No Numbness, No Paresthesias, No Loss of Consciousness, No Dizziness, No Headache Psych : No Anxiety/Panic, No Depression, No SI/HI/AH/VH, No Social Issues, Heme/Lymph: No Bruising, No Bleeding,No Lymphadenopathy Endocrine : No Polyuria, No Polydipsia, No Temperature Intolerance [facility] Past Medical History Medical History Chronic lung disease Tubular adenoma of colon (~2005) COPD (chronic obstructive pulmonary disease) Pulmonary nodules RAYMOND on CPAP Chronic rhinitis Asthma-COPD overlap syndrome PAF (paroxysmal atrial fibrillation) (~2017) Echocardiogram abnormal Encounter for screening for lung cancer Edema leg Venous insufficiency of both lower extremities AC (acromioclavicular) joint arthritis BPH (benign prostatic hyperplasia) Seasonal allergies Hyperlipidemia Surgical History (Reviewed 06/27/23 @ 10:45 by Jaz Van [facility]) History of appendectomy History of esophagogastroduodenoscopy (EGD) History of total left hip replacement (~2019) History of repair of right rotator cuff (~2017) History of nasal septoplasty (~2008) History of colonoscopy History of cataract (~2009) Family History Family History (Reviewed 06/27/23 @ 10:45 by Jaz Van [facility]) Father No problems noted. Mother CAD (coronary artery disease) CHF (congestive heart failure) HTN (hypertension) Brother No problems noted. Brother No problems noted. Sister No problems noted. Sister No problems noted. Sister No problems noted. Son No problems noted. Son No problems noted. Social History Social History (Reviewed 06/27/23 @ 10:45 by Jaz Van [facility]) Household Members: Spouse Housing: House Do you presently have visiting nurse or other home services: No Alcohol intake: current Alcohol intake frequency: holidays/special occasions only Patient Tobacco Use Status: Former Tobacco user Tobacco use type: Cigarette Years Smoked: 40 years Smoked in Last 30 Days: No e-Cigarette/Vaping Use: Former Use Second Hand Smoke Exposure: No Use of substances other than those prescribed or required for medical reasons: No Advance Directives: Yes Advance Directives on File: Yes Advance Directives Date on File: 10/10/22 service: Yes Current occupational status: retired Cognitive needs: No Hearing needs: No Vision needs: No Physical Exam 2 Vital Signs: Vital Signs: Last Vital Signs Temp 98.7 F 08/06/23 06:00 Pulse 105 H 08/06/23 06:00 Resp 18 08/06/23 06:00 BP 148/53 H 08/06/23 06:00 Pulse Ox 92 08/06/23 06:00 O2 Del Method Room Air 08/06/23 06:00 BMI result Body Mass Index 28.5 Const: Other: Appearance: Alert. Oriented X3. No acute distress. Eyes: Pupils equal, round and reactive to light. ENT: Pharynx normal. Neck: Normal inspection. Neck supple. No lymph nodes noted. No crepitus CVS: Normal heart rate and rhythm. Pulses normal. Normal S1 and S2 Respiratory: No respiratory distress. Bilateral wheezing, decreased breath sounds, no rales or crackles Abdomen: Soft and nontender. No rigidity. No distention. Skin: Skin warm and dry. Normal skin color. Normal skin turgor. Extremities: No lower extremity edema. No Lacerations. No Rash Neuro: Oriented X 3. No motor deficit. No sensory deficit. Moving all extremities. No slurred speech. CN 2 through 12 grossly intact Psych: calm, cooperative, normal affect Course Course Course Narrative: -patient complaining of 1 week of worsening asthma/COPD symptoms. -labs and imaging pending Medications Administered Discontinued Medications Generic Name Dose Route Start Last Admin Trade Name Freq PRN Reason Stop Dose Admin Albuterol Sulfate 2.5 mg/ 5 mg 08/06/23 05:12 08/06/23 05:17 Albuterol Sulfate 2.5 mg INHALE 08/06/23 05:13 5 mg ONCE ONE Administration Azithromycin 500 mg 08/06/23 03:56 08/06/23 04:33 Azithromycin 500 Mg Tablet PO 08/06/23 03:57 500 mg ONCE ONE Administration Benzonatate 100 mg 08/06/23 03:59 08/06/23 04:33 Benzonatate 100 Mg Capsule PO 08/06/23 04:00 100 mg ONCE ONE Administration Magnesium Sulfate 2 gm in 50 mls @ 25 mls/hr 08/06/23 03:56 08/06/23 04:22 Magnesium Sulfate/H2o IV 08/06/23 05:55 25 mls/hr ONCE ONE Administration Ceftriaxone Sodium 1 gm/ 50 mls @ 100 mls/hr 08/06/23 03:56 08/06/23 04:55 Sodium Chloride IV 08/06/23 04:25 Infused ONCE ONE Infusion Sodium Chloride 1,000 mls @ 999 mls/hr 08/06/23 04:01 08/06/23 05:48 Ns IVCONT 08/06/23 05:01 Infused .Q1H1M ONE Infusion Sodium Chloride 1,000 mls @ 999 mls/hr 08/06/23 04:11 08/06/23 04:40 Ns IVCONT 08/06/23 05:11 999 mls/hr .Q1H1M ONE Administration Methylprednisolone Sodium Succinate 125 mg 08/06/23 03:56 08/06/23 04:34 Methylprednisolone Sod Succ 125 Mg/2 Ml Vial IVPUSH 08/06/23 03:57 125 mg ONCE ONE Administration Medical Decision Making Medical Decision Making MDM Narrative: -my interpretation of labs: Patient's white blood cell count 13.4, chronic. Patient's potassium 5.3, no need for treatment. Patient will be getting nebulization treatments which will likely help decrease the potassium as it is. Creatinine 1.65, chronic and at baseline. Serology negative for RSV, COVID, influenza. My interpretation of chest x-ray, likely pneumonia bilaterally. -patient receiving IV fluids based on ideal weight of 64 kg, IV azithromycin and ceftriaxone. Magnesium IV, Solu-Medrol. Also for symptomatic treatment Billy Mckeon -after patient receives his nebulization treatments, we will ambulate the patient. I discussed with the patient and his that if his oxygen drops ambulating, you may have to admit him. Patient agrees with plan. -patient's vitals are stable, no fever, no tachycardia or hypotension. Lactic acid and blood cultures pending. At this time, 04:10, sepsis is not suspected -patient received nebulization treatments, patient still wheezing, feeling short of breath. Oxygen saturation did not drop below 90, lowest O2 sat 91%. However, patient does feel fatigue from a short walk. -I discussed the patient with our hospitalist Dr. Garcia, even though patient is not significantly hypoxic, patient does seem ill, patient would benefit from an admission. Differential Diagnosis Differential Diagnoses: The differential diagnosis associated with the presentation includes (Asthma, chronic lung disease, pneumonia, viral syndrome) Admission/Observation Consideration of admission/observation: Escalation of care including admission/observation considered Consult Healthcare Provider Management of the patient was discussed with: Hospitalist Lab Data MDM Lab Attestation statement: I reviewed the patient's lab results. 08/05/23 21:18 08/05/23 21:18 Labs: Lab Results 08/05/23 08/06/23 Range/Units 21:18 04:15 WBC 13.4 H (4.8-10.8) X10*3/uL RBC 4.75 (4.60-5.80) X10*6/uL Hgb 14.3 (14.0-18.0) g/dl Hct 44.9 (42.0-52.0) % MCV 94.5 (80.0-98.0) fL MCH 30.1 (27.0-33.0) pg MCHC 31.8 (31.0-36.0) g/dl RDW 11.9 (11.0-16.0) % Plt Count 526 H D (160-400) X10*3/uL MPV 9.1 L (9.4-12.4) fL Immature Gran % (Auto) 1.0 H (0.0-0.4) % Neut % (Auto) 81.3 H (45-73) % Lymph % (Auto) 8.2 L (20-40) % Lares % (Auto) 7.8 (2-11) % Eos % (Auto) 1.3 (0-4) % Baso % (Auto) 0.4 (0-2) % Lymph # (Auto) 1.1 L (1.2-4.9) X10*3/uL Lares # (Auto) 1.0 (0.1-1.2) X10*3/uL Eos # (Auto) 0.2 (0.0-0.4) X10*3/uL Baso # (Auto) 0.1 (0.0-0.2) X10*3/uL Abs Immat Gran (auto) 0.13 H (0.00-0.03) X10*3/uL Absolute Neuts (auto) 10.9 H (2.0-8.3) x10*3/uL Absolute Nucleated RBC 0.000 (0.0-0.012) X10*3/uL Nucleated RBC % (auto) 0.0 (0.0-0.2) /100WBC Sodium 140 (135-145) mmol/L Potassium 5.3 H D (3.3-5.1) mmol/L Chloride 109 H (96-108) mmol/L Carbon Dioxide 21 L (22-29) mmol/L Anion Gap 15 (12-20) BUN 20 H (9-16) mg/dL Creatinine 1.65 H (0.5-1.4) mg/dL Estim Creat Clear Calc 46.9 Estimated GFR 42 Random Glucose 96 (60-115) mg/dL Lactic Acid 3.0 H* (0.5-2.0) mmol/L Calcium 9.7 D (8.4-10.2) mg/dL Total Bilirubin 0.6 (0.0-1.0) mg/dL AST 41 H (5-37) U/L ALT 93 H (0-40) U/L Alkaline Phosphatase 177 H (39-117) U/L Troponin I High Sens 5.1 (<3.5-35.0) ng/L B-Natriuretic Peptide 84 (<100) pg/mL Total Protein 8.2 H (6.5-8.0) g/dL Albumin 3.5 (3.5-5.0) g/dL Influenza Type A (PCR) NEGATIVE (Negative) Influenza Type B (PCR) NEGATIVE (Negative) RSV RNA Qual (PCR) NEGATIVE (Negative) SARS-CoV-2 RNA (RT-PCR) NEGATIVE (Negative) Independent Interpretation I performed an independent interpretation of an: EKG and Plain X-Ray Radiology Impression Discussion of test interpretation with radiology: I have reviewed the radiologist's reading. Radiologist Impression: Chronic interstitial thickening. Some of the previously described airspace opacities are resolved, however there are a few new focal hazy airspace opacities, for instance as identified in the lateral right upper lobe at the level of the fifth through seventh rib and left lower lobe at the level of the posterior ninth rib. No pleural effusion or pneumothorax. No acute osseous findings. Right humeral head surgical anchors are seen. XR/XR chest 2V IMPRESSION: Chronic interstitial thickening with waxing and wanning multifocal airspace opacities suspicious for an infectious/inflammatory process and small airways disease. Recommend short-term follow-up to ensure appropriate resolution and rule out occult malignancy Independent Historian Clinical information obtained from an independent historian. History obtained from or confirmed by: Spouse Critical Care Time Critical Care Time Critical Care Time: Yes Total Critical Care Time: 75 Attestation: I have personally provided critical care time. Time includes review of lab data, radiology results, discussion with consultants, and monitoring for potential decompensation. Intervention performed as documented. Discharge Plan Discharge Clinical Impression: Pneumonia, Chronic lung disease Patient Disposition: Admitted As Inpatient Prescriptions: No Action furosemide 20 mg tablet 20 mg PO DAILY Qty: 90 3RF montelukast 10 mg tablet 10 mg PO DAILY Qty: 90 3RF arformoterol [Brovana] 15 mcg/2 mL solution for nebulization 15 mcg inhalation BID Qty: 360 3RF atorvastatin 80 mg tablet 80 mg PO DAILY Qty: 90 3RF levalbuterol HCl 1.25 mg/3 mL solution for nebulization 1.25 mg inhalation BID 90 Days Qty: 540 3RF tamsulosin [Flomax] 0.4 mg capsule 0.4 mg PO BID 90 Days Qty: 180 2RF bupropion HCl 75 mg tablet 150 mg PO BID 90 Days Qty: 360 3RF Multaq 400 mg tablet 400 mg PO BID 90 Days Qty: 180 3RF Rx Instructions: must administer with a meal/food Eliquis 5 mg tablet 5 mg PO BID Qty: 180 3RF budesonide 0.5 mg/2 mL suspension for nebulization 0.5 mg inhalation BID Qty: 360 3RF roflumilast 500 mcg tablet 500 mcg PO DAILY Qty: 90 3RF fluticasone propionate [Flovent HFA] 220 mcg/actuation Hfa Aerosol Inhaler 1 puff INHALATION Q12H fluticasone propionate [Flonase Allergy Relief] 50 mcg/actuation spray,suspension 1 spray intranasal Q12H 30 Days Qty: 16 2RF Rx Instructions: administer into each nostril metoprolol succinate 100 mg tablet extended release 24 hr 100 mg PO DAILY 90 Days Qty: 90 3RF Tezspire 210 mg/1.91 mL (110 mg/mL) syringe 210 mg subcut Q4W albuterol sulfate 90 mcg/actuation HFA aerosol inhaler 2 puff inhalation QID (DME) nebulizers Misc See Rx Instructions .Route Rx Instructions: As directed (DME) CPAP Machine/Device Device See Rx Instructions .Route Rx Instructions: As directed theophylline 300 mg tablet extended release 12 hr 150 mg PO Q12H 30 Days Qty: 30 2RF lisinopril 20 mg tablet 20 mg PO BID prednisone 10 mg tablet 20 mg PO DAILY 30 Days Qty: 60 9RF cefpodoxime 200 mg tablet 200 mg PO BID Qty: 20 0RF Rx Instructions: must administer with a meal/food doxycycline hyclate 100 mg capsule 100 mg PO BID 10 Days Qty: 20 0RF
[2023-08-06] MEDS: cefTRIAXone sodium 1 GM in 0.9 % Sodium Chloride 50 ML IV (04:22)
[2023-08-06] MEDS: Magnesium Sulfate/H2O 2 GM/50 ML PIGGYBACK IV (04:22)
[2023-08-06] MEDS: 0.9 % Sodium Chloride 1,000 ML 999 ML IVCONT ×2 (04:23→04:40)
[2023-08-06] MEDS: Benzonatate 100 MG CAPSULE PO (04:33)
[2023-08-06] MEDS: Azithromycin 500 MG TABLET PO (04:33)
[2023-08-06] MEDS: methylPREDNISolone Sod Succ 125 MG/2 ML VIAL IVPUSH (04:34)
[2023-08-06] MEDS: Albuterol Sulfate 2.5 MG, Albuterol Sulfate (0.083%) 2.5 MG 5 MG INHALE (05:17)
--- NOTE | 2023-08-06 06:07 | PC.NURSE ---
this rn assumed care of pt from waiting room @ [id number]. pt at bedside pt calm and cooperative. 20g iv paced in L hand pt tolerated well. pt on panel monitor labs obtained pt dr corona pt does not meet sepsis criteria pt medicated according to yaneth
[2023-08-06 06:22] LABS: Reflex Lactate? Lactic Acid Added
[2023-08-06 06:51] LABS: ~Lactic Acid-LAB USE ONLY 0.6 mmol/L (0.5-2.0)
--- NOTE | 2023-08-06 07:31 | P.HPHOSP_ITS ---
History of Present Illness Date of Service: 08/06/23 Chief Complaint: sob 68M PMH pafib, copd/moderate persistent asthma, mood disorder, bph, DEIDRA presented with shortness of breath. Patient states that he has had viral syndrome for the past week. Reports nausea vomiting, diarrhea, shortness of breath. Vomiting and diarrhea have subsided for the past 2 days, appetite has improved. But continues to be short of breath. Patient came to the ED on insistence of his . Denies fevers, chills, chest pain. Review of Systems 2 Review of Systems: Yes all other systems are reviewed and are negative [facility] Medical History Chronic lung disease Tubular adenoma of colon (~2005) COPD (chronic obstructive pulmonary disease) Pulmonary nodules DEIDRA on CPAP Chronic rhinitis Asthma-COPD overlap syndrome PAF (paroxysmal atrial fibrillation) (~2017) Echocardiogram abnormal Encounter for screening for lung cancer Edema leg Venous insufficiency of both lower extremities AC (acromioclavicular) joint arthritis BPH (benign prostatic hyperplasia) Seasonal allergies Hyperlipidemia Family History Father No problems noted. Mother CAD (coronary artery disease) CHF (congestive heart failure) HTN (hypertension) Brother No problems noted. Brother No problems noted. Sister No problems noted. Sister No problems noted. Sister No problems noted. Son No problems noted. Son No problems noted. Surgical History History of appendectomy History of esophagogastroduodenoscopy (EGD) History of total left hip replacement (~2019) History of repair of right rotator cuff (~2017) History of nasal septoplasty (~2008) History of colonoscopy History of cataract (~2009) Social History Household Members: Spouse Housing: House Do you presently have visiting nurse or other home services: No Alcohol intake: current Alcohol intake frequency: holidays/special occasions only Patient Tobacco Use Status: Former Tobacco user Tobacco use type: Cigarette Years Smoked: 40 years Smoked in Last 30 Days: No e-Cigarette/Vaping Use: Former Use Second Hand Smoke Exposure: No Use of substances other than those prescribed or required for medical reasons: No Advance Directives: Yes Advance Directives on File: Yes Advance Directives Date on File: 10/10/22 Nutrition Risks: No Nutritional Risk and Acute nausea or vomiting x1 week service: Yes Current occupational status: retired Cognitive needs: No Hearing needs: No Vision needs: No Meds Allergies Allergy/AdvReac Type Severity Reaction Status Date / Time watermelon [WATERMELON] Allergy Severe ANAPHYLAXIS Verified 08/05/23 20:42 Iodinated Contrast Media Allergy Intermediate LIGHT Verified 08/05/23 20:42 [IV CONTRAST] HEADED AND SHORTNESS OF BREATH Active Medications: Current Medications Acetaminophen (Acetaminophen 325 Mg Tablet) 650 mg PO Q6H PRN PRN Reason: Pain, Mild (Pain Scale 1-3) Albuterol/Ipratropium (Albuterol/Iprat 2.5/0.5mg 3 Ml Ampul.Neb) 3 ml INHALE RQ4H WHILE AWAKE DARREN Doxycycline Monohydrate (Doxycycline Monohydrate 100 Mg Capsule) 100 mg PO Q12H DARREN Melatonin (Melatonin 3 Mg Tablet) 6 mg PO BEDTIME PRN PRN Reason: Insomnia Methylprednisolone Sodium Succinate (Methylprednisolone Sod Succ 40 Mg/Ml Vial) 40 mg IVPUSH Q12H DARREN Sodium Chloride (0.9 % Sodium Chloride Flush 3 Ml Syringe) 3 ml IVFLUSH QSHIFT DARREN Home Medications Medication Instructions Recorded Confirmed Last Taken Type albuterol sulfate 90 mcg/actuation 2 puff inhalation QID 11/23/21 08/06/23 08/05/23 History aerosol inhaler CPAP (CPAP Machine/Device) 02/15/22 12/27/22 08/05/23 History nebulizers 02/15/22 12/20/22 08/05/23 History tezepelumab-ekko 210 mg/1.91 mL 210 mg subcut Q4W 08/06/23 08/06/23 07/18/23 History (110 mg/mL) subcutaneous pen injector (Tezspire) Physical Exam 2 Vital Signs and Narrative: Vital Signs: Last Vital Signs Temp 98.2 F 08/06/23 07:20 Pulse 100 08/06/23 07:20 Resp 28 H 08/06/23 07:20 BP 160/68 H 08/06/23 07:20 Pulse Ox 95 08/06/23 07:20 O2 Del Method Room Air 08/06/23 07:20 BMI result Body Mass Index 28.5 General: AO X 3, no acute distress Resp: wheezing bilateral, no accessory muscles used CVS: S1,S2,RRR GI: soft, non tender, non distended Neuro: motor grossly intact, alert Psych: appropriate affect, appropriate insight Results Labs 08/05/23 21:18 08/05/23 21:18 Labs: Laboratory Results - last 24 hr 08/05/23 08/06/23 08/06/23 21:18 04:15 06:37 MCV 94.5 MCH 30.1 MCHC 31.8 RDW 11.9 Plt Count 526 H D MPV 9.1 L Immature Gran % (Auto) 1.0 H Neut % (Auto) 81.3 H Lymph % (Auto) 8.2 L Lyon % (Auto) 7.8 Eos % (Auto) 1.3 Baso % (Auto) 0.4 Lymph # (Auto) 1.1 L Lyon # (Auto) 1.0 Eos # (Auto) 0.2 Baso # (Auto) 0.1 Abs Immat Gran (auto) 0.13 H Absolute Neuts (auto) 10.9 H Absolute Nucleated RBC 0.000 Nucleated RBC % (auto) 0.0 Anion Gap 15 Estim Creat Clear Calc 46.9 Estimated GFR 42 Random Glucose 96 Lactic Acid 3.0 H* Lactic Acid F/U @ 2Hr 0.6 Calcium 9.7 D Total Bilirubin 0.6 AST 41 H ALT 93 H Alkaline Phosphatase 177 H Troponin I High Sens 5.1 B-Natriuretic Peptide 84 Total Protein 8.2 H Albumin 3.5 Influenza Type A (PCR) NEGATIVE Influenza Type B (PCR) NEGATIVE RSV RNA Qual (PCR) NEGATIVE SARS-CoV-2 RNA (RT-PCR) NEGATIVE Imaging Radiologist's Impressions: Impressions Chest X-Ray 08/05/23 21:05 IMPRESSION: Chronic interstitial thickening with waxing and wanning multifocal airspace opacities suspicious for an infectious/inflammatory process and small airways disease. Recommend short-term follow-up to ensure appropriate resolution and rule out occult malignancy. Assessment and Plan (1) Chronic lung disease: Status: Acute Plan 68M PMH pafib, copd/moderate persistent asthma, mood disorder, bph, DEIDRA presented with shortness of breath. sepsis due to COPD/moderate persistent asthma with acute decompensation solumedrol, duonebs, doxy, roflumilast, singulair deidra cpap at night paroxysmal afib eliquis, metoprolol, multaq bph flomax mood disorder dvt prophylaxis - eliquis full code Quality Stroke Does the patient have a stroke diagnosis?: No VTE Prior VTE?: No VTE Risk Level:: Medical - moderate - high VTE Device Contraindication: Treatment Not Indicated VTE Drug Contraindication: N/A - Med Ordered
[2023-08-06] MEDS: 0.9 % Sodium Chloride Flush 3 ML SYRINGE IVFLUSH ×2 (07:49→16:41)
[2023-08-06] MEDS: Albuterol/Iprat 2.5/0.5MG 3 ML AMPUL.NEB INHALE ×4 (08:40→19:47)
--- NOTE | 2023-08-06 09:47 | PHA.MEDREC ---
Pharmacy Consult ? Medication Reconciliation Pharmacy has completed the medication reconciliation. Spoke with patient who knew medications.
[2023-08-06] MEDS: Theophylline Anhydrous ER 300 MG TAB.ER.12H 150 MG PO ×2 (10:36→22:45)
--- NOTE | 2023-08-06 15:27 | PC.NURSE ---
pt resting comfortably in bed. A&Ox4. had intermittent barking cough with patient reports is baseline for him. ate lunch well. no distress, resp even and unlabored. on room air. awaiting bed assignment
[2023-08-06] MEDS: Doxycycline Monohydrate 100 MG CAPSULE PO (18:37)
[2023-08-06] MEDS: methylPREDNISolone Sod Succ 40 MG/ML VIAL IVPUSH (18:37)
[2023-08-06] MEDS: Tamsulosin HCL 0.4 MG CAPSULE PO (22:44)
[2023-08-06] MEDS: Apixaban 5 MG TABLET PO (22:44)
[2023-08-06] MEDS: Dronedarone HCl 400 MG TABLET PO (22:45)
[2023-08-06] MEDS: buPROPion HCL 75 MG TABLET 150 MG PO (22:51)
[2023-08-06] MEDS: Metoprolol Succinate ER 100 MG TAB.ER.24H PO (22:59)
[2023-08-06] MEDS: Acetaminophen 325 MG TABLET 650 MG PO (22:59)
[2023-08-07] VITALS (8 sets, daily range): BP systolic 135–174; BP diastolic 63–75; PULSE 69–114; RESP 16–20; TEMP 36.1–36.7; O2SAT 93–94; BMI 30.2
[2023-08-07] MEDS: 0.9 % Sodium Chloride Flush 3 ML SYRINGE IVFLUSH ×4 (01:11→23:56)
[2023-08-07 06:42] LABS: Hematocrit 37.5 % (42.0-52.0); Mean Corpuscular Hemoglobin 29.9 pg (27.0-33.0); Mean Corpuscular Volume 93.3 fL (80.0-98.0); Mean Platelet Volume 9.4 fL (9.4-12.4); Platelet Count 509 X10*3/uL (160-400); Red Blood Count 4.02 X10*6/uL (4.60-5.80); Red Cell Distribution Width 11.7 % (11.0-16.0); White Blood Count 13.8 X10*3/uL (4.8-10.8)
[2023-08-07 07:02] LABS: Alanine Aminotransferase 58 U/L (0-40); Albumin Level 3.1 g/dL (3.5-5.0); Alkaline Phosphatase 121 U/L (39-117); Anion Gap 12 (12-20); Aspartate Amino Transferase 30 U/L (5-37); Bilirubin Direct < 0.2 mg/dL (0.0-0.5); Bilirubin Total 0.2 mg/dL (0.0-1.0); Blood Urea Nitrogen 33 mg/dL (9-16); Calcium 9.2 mg/dL (8.4-10.2); Carbon Dioxide 24 mmol/L (22-29); Chloride 108 mmol/L (96-108); Creatinine Clr Calc Pharmacy 54.8; Estimated Glomerular Filt Rate 48; Glucose Fasting 120 mg/dL (60-99); Potassium 5.1 mmol/L (3.3-5.1); Sodium 139 mmol/L (135-145); Total Protein 6.8 g/dL (6.5-8.0)
--- NOTE | 2023-08-07 08:01 | PC.RT ---
pt was not in med Pyxis
[2023-08-07] MEDS: methylPREDNISolone Sod Succ 40 MG/ML VIAL IVPUSH ×2 (08:55→19:28)
[2023-08-07] MEDS: guaiFENesin DM 100/10/5 ML 5 ML SYRUP PO ×3 (08:55→21:41)
[2023-08-07] MEDS: buPROPion HCL 75 MG TABLET 150 MG PO ×2 (08:55→20:27)
[2023-08-07] MEDS: Montelukast Sodium 10 MG TABLET PO (08:55)
[2023-08-07] MEDS: Apixaban 5 MG TABLET PO ×2 (08:56→20:27)
[2023-08-07] MEDS: Tamsulosin HCL 0.4 MG CAPSULE PO ×2 (08:56→20:27)
[2023-08-07] MEDS: Doxycycline Monohydrate 100 MG CAPSULE PO ×2 (08:57→19:28)
[2023-08-07] MEDS: Theophylline Anhydrous ER 300 MG TAB.ER.12H 150 MG PO ×2 (08:57→20:26)
[2023-08-07] MEDS: Dronedarone HCl 400 MG TABLET PO ×2 (08:57→20:26)
[2023-08-07] MEDS: Roflumilast 500 MCG TABLET PO (08:57)
[2023-08-07] MEDS: Atorvastatin Calcium 80 MG TABLET PO (08:57)
--- NOTE | 2023-08-07 09:03 | P.PNIM_ITS ---
Subjective Subjective Date of Service: 08/07/23 Interval History: sob, cough, a bit worse this morning Physical Exam 2 Vital Signs: Vital Signs: Last Vital Signs Temp 98.1 F 08/07/23 08:00 Pulse 69 08/07/23 08:00 Resp 18 08/07/23 08:00 BP 151/71 H 08/07/23 08:00 Pulse Ox 93 08/07/23 08:00 O2 Del Method Room Air 08/07/23 08:00 BMI result Body Mass Index 30.2 General: AO X 3, no acute distress Resp: diminished with rhonchi bilateral, no accessory muscles used CVS: S1,S2,RRR GI: soft, non tender, non distended Neuro: motor grossly intact, alert Psych: appropriate affect, appropriate insight Objective Data Active Medications Acetaminophen (Acetaminophen 325 Mg Tablet) 650 mg PO Q6H PRN PRN Reason: Pain, Mild (Pain Scale 1-3) Last Admin: 08/06/23 22:59 Dose: 650 mg Documented By: MERRICK Albuterol/Ipratropium (Albuterol/Iprat 2.5/0.5mg 3 Ml Ampul.Neb) 3 ml INHALE RQ4H WHILE AWAKE [facility] Last Admin: 08/07/23 08:00 Dose: Not Given Documented By: TASHA Non-Admin Reason: See Note Apixaban (Apixaban 5 Mg Tablet) 5 mg PO BID [facility] Last Admin: 08/07/23 08:56 Dose: 5 mg Documented By: YU Atorvastatin Calcium (Atorvastatin Calcium 80 Mg Tablet) 80 mg PO DAILY [facility] Last Admin: 08/07/23 08:57 Dose: 80 mg Documented By: YU Bupropion HCl (Bupropion Hcl 75 Mg Tablet) 150 mg PO BID [facility] Last Admin: 08/07/23 08:55 Dose: 150 mg Documented By: YU Doxycycline Monohydrate (Doxycycline Monohydrate 100 Mg Capsule) 100 mg PO Q12H [facility] Last Admin: 08/07/23 08:57 Dose: 100 mg Documented By: YU Dronedarone (Dronedarone Hcl 400 Mg Tablet) 400 mg PO BID [facility] Last Admin: 08/07/23 08:57 Dose: 400 mg Documented By: YU Furosemide (Furosemide 20 Mg Tablet) 20 mg PO DAILY [facility]; Protocol Last Admin: 08/07/23 08:56 Dose: Not Given Documented By: YU Non-Admin Reason: Patient Refused Guaifenesin/Dextromethorphan (Guaifenesin Dm 100/10/5 Ml 5 Ml Syrup) 5 ml PO Q4H PRN PRN Reason: Cough Last Admin: 08/07/23 08:55 Dose: 5 ml Documented By: YU Melatonin (Melatonin 3 Mg Tablet) 6 mg PO BEDTIME PRN PRN Reason: Insomnia Methylprednisolone Sodium Succinate (Methylprednisolone Sod Succ 40 Mg/Ml Vial) 40 mg IVPUSH Q12H [facility] Last Admin: 08/07/23 08:55 Dose: 40 mg Documented By: YU Metoprolol Succinate (Metoprolol Succinate Er 100 Mg Tab.Er.24h) 100 mg PO BEDTIME [facility]; Protocol Last Admin: 08/06/23 22:59 Dose: 100 mg Documented By: MERRICK Montelukast Sodium (Montelukast Sodium 10 Mg Tablet) 10 mg PO DAILY [facility] Last Admin: 08/07/23 08:55 Dose: 10 mg Documented By: YU Roflumilast (Roflumilast 500 Mcg Tablet) 500 mcg PO DAILY [facility] Last Admin: 08/07/23 08:57 Dose: 500 mcg Documented By: YU Sodium Chloride (0.9 % Sodium Chloride Flush 3 Ml Syringe) 3 ml IVFLUSH QSHIFT [facility] Last Admin: 08/07/23 08:57 Dose: 3 ml Documented By: YU Tamsulosin HCl (Tamsulosin Hcl 0.4 Mg Capsule) 0.4 mg PO BID [facility] Last Admin: 08/07/23 08:56 Dose: 0.4 mg Documented By: YU Theophylline (Theophylline Anhydrous Er 300 Mg Tab.Er.12h) 150 mg PO BID [facility] Last Admin: 08/07/23 08:57 Dose: 150 mg Documented By: YU Labs 08/07/23 05:26 08/07/23 05:26 Labs: Laboratory Results - last 24 hr 08/07/23 05:26 MCV 93.3 MCH 29.9 MCHC 32.0 RDW 11.7 Plt Count 509 H MPV 9.4 Absolute Nucleated RBC 0.000 Nucleated RBC % (auto) 0.0 Anion Gap 12 Estim Creat Clear Calc 54.8 Estimated GFR 48 Fasting Glucose 120 H Calcium 9.2 Total Bilirubin 0.2 Direct Bilirubin < 0.2 AST 30 ALT 58 H Alkaline Phosphatase 121 H Total Protein 6.8 Albumin 3.1 L Microbiology Microbiology Results: Microbiology 08/06/23 04:15 Blood Culture - Preliminary Blood - Venous No growth after 24 hours. 08/06/23 04:16 Blood Culture - Preliminary Blood - Venous No growth after 24 hours. Assessment and Plan (1) Chronic lung disease: Status: Acute Plan 68M PMH pafib, copd/moderate persistent asthma, mood disorder, bph, RAYMOND presented with shortness of breath. sepsis due to COPD/moderate persistent asthma with acute decompensation continue solumedrol, duonebs, doxy, roflumilast, singulair raymond cpap at night paroxysmal afib eliquis, metoprolol, multaq bph flomax mood disorder dvt prophylaxis - eliquis full code reason for continued hospitalization: patient feeling more sob and more wheezing today, likely to require atleast 2 midnights inpatient. Quality Stroke Does the patient have a stroke diagnosis?: No VTE Prior VTE?: No VTE Risk Level:: Medical - moderate - high VTE Device Contraindication: Treatment Not Indicated VTE Drug Contraindication: N/A - Med Ordered
[2023-08-07] MEDS: Albuterol/Iprat 2.5/0.5MG 3 ML AMPUL.NEB INHALE ×3 (09:49→19:32)
--- NOTE | 2023-08-07 11:25 | MHC.CM.PN ---
PER REVIEW OF CHART, PATIENT STILL SYMPTOMATIC NO PLAN FOR DC TODAY. CASE MANAGEMENT FOLLOWING.
--- NOTE | 2023-08-07 11:30 | MHC.CLN ---
NUTRITION CONSULT FOR RECENT WEIGHT LOSS. VISITED WITH PATIENT. STATED THAT LOSES WEIGHT WHEN SICK. REPORTS THAT EATING WELL NOW. REVIEW OF WEIGHT HX SHOWS WEIGHT FLUCTUATION X ONE YEAR. DIET=REGULAR. NO ADDITIONAL NUTRITION INTERVENTIONS AT THIS TIME.
[2023-08-07] MEDS: Metoprolol Succinate ER 100 MG TAB.ER.24H PO (20:27)
[2023-08-08] VITALS (8 sets, daily range): BP systolic 127–157; BP diastolic 62–73; PULSE 61–84; RESP 16–18; TEMP 36.1–36.4; O2SAT 92–97; BMI 30.5
[2023-08-08] MEDS: guaiFENesin DM 100/10/5 ML 5 ML SYRUP PO ×4 (04:21→21:11)
[2023-08-08 06:32] LABS: Hemoglobin 12.9 g/dl (14.0-18.0); Mean Corpuscular HGB Conc 31.5 g/dl (31.0-36.0); Mean Corpuscular Hemoglobin 29.7 pg (27.0-33.0); Mean Corpuscular Volume 94.5 fL (80.0-98.0); Mean Platelet Volume 9.7 fL (9.4-12.4); Platelet Count 591 X10*3/uL (160-400); Red Blood Count 4.34 X10*6/uL (4.60-5.80); Red Cell Distribution Width 11.7 % (11.0-16.0); White Blood Count 21.3 X10*3/uL (4.8-10.8)
[2023-08-08 06:46] LABS: Anion Gap 16 (12-20); Blood Urea Nitrogen 43 mg/dL (9-16); Calcium 9.6 mg/dL (8.4-10.2); Carbon Dioxide 24 mmol/L (22-29); Chloride 105 mmol/L (96-108); Creatinine Clr Calc Pharmacy 57.5; Estimated Glomerular Filt Rate 51; Glucose Fasting 94 mg/dL (60-99); Sodium 140 mmol/L (135-145)
--- NOTE | 2023-08-08 07:54 | HO.PM.IMPN ---
Subjective Subjective Date of Service: 08/08/23 Interval History: still coughing and wheezy Physical Exam Vital Signs: Vital Signs: Last Vital Signs Temp 97.1 F 08/08/23 04:00 Pulse 66 08/08/23 04:00 Resp 18 08/08/23 04:00 BP 127/62 08/08/23 04:00 Pulse Ox 95 08/08/23 04:00 O2 Del Method CPAP 08/08/23 04:00 BMI result Body Mass Index 30.5 General: AO X 3, no acute distress Resp: diminished with rhonchi bilateral, no accessory muscles used CVS: S1,S2,RRR GI: soft, non tender, non distended Neuro: motor grossly intact, alert Psych: appropriate affect, appropriate insight Objective Data Active Medications Acetaminophen (Acetaminophen 325 Mg Tablet) 650 mg PO Q6H PRN PRN Reason: Pain, Mild (Pain Scale 1-3) Last Admin: 08/06/23 22:59 Dose: 650 mg Documented By: MERRICK Albuterol/Ipratropium (Albuterol/Iprat 2.5/0.5mg 3 Ml Ampul.Neb) 3 ml INHALE RQ4H WHILE AWAKE [facility] Last Admin: 08/07/23 19:32 Dose: 3 ml Documented By: AMINAH Albuterol/Ipratropium (Albuterol/Iprat 2.5/0.5mg 3 Ml Ampul.Neb) 3 ml INHALE RQ4H WHILE AWAKE PRN PRN Reason: sob Apixaban (Apixaban 5 Mg Tablet) 5 mg PO BID [facility] Last Admin: 08/07/23 20:27 Dose: 5 mg Documented By: PAT Atorvastatin Calcium (Atorvastatin Calcium 80 Mg Tablet) 80 mg PO DAILY [facility] Last Admin: 08/07/23 08:57 Dose: 80 mg Documented By: YU Bupropion HCl (Bupropion Hcl 75 Mg Tablet) 150 mg PO BID [facility] Last Admin: 08/07/23 20:27 Dose: 150 mg Documented By: PAT Doxycycline Monohydrate (Doxycycline Monohydrate 100 Mg Capsule) 100 mg PO Q12H [facility] Last Admin: 08/07/23 19:28 Dose: 100 mg Documented By: PAT Dronedarone (Dronedarone Hcl 400 Mg Tablet) 400 mg PO BID [facility] Last Admin: 08/07/23 20:26 Dose: 400 mg Documented By: PAT Furosemide (Furosemide 20 Mg Tablet) 20 mg PO DAILY [facility]; Protocol Last Admin: 08/07/23 08:56 Dose: Not Given Documented By: YU Non-Admin Reason: Patient Refused Guaifenesin/Dextromethorphan (Guaifenesin Dm 100/10/5 Ml 5 Ml Syrup) 5 ml PO Q4H PRN PRN Reason: Cough Last Admin: 08/08/23 04:21 Dose: 5 ml Documented By: SAIDA Melatonin (Melatonin 3 Mg Tablet) 6 mg PO BEDTIME PRN PRN Reason: Insomnia Methylprednisolone Sodium Succinate (Methylprednisolone Sod Succ 40 Mg/Ml Vial) 40 mg IVPUSH Q12H [facility] Last Admin: 08/07/23 19:28 Dose: 40 mg Documented By: PAT Metoprolol Succinate (Metoprolol Succinate Er 100 Mg Tab.Er.24h) 100 mg PO BEDTIME [facility]; Protocol Last Admin: 08/07/23 20:27 Dose: 100 mg Documented By: PAT Montelukast Sodium (Montelukast Sodium 10 Mg Tablet) 10 mg PO DAILY [facility] Last Admin: 08/07/23 08:55 Dose: 10 mg Documented By: YU Roflumilast (Roflumilast 500 Mcg Tablet) 500 mcg PO DAILY [facility] Last Admin: 08/07/23 08:57 Dose: 500 mcg Documented By: YU Sodium Chloride (0.9 % Sodium Chloride Flush 3 Ml Syringe) 3 ml IVFSH [facility] Last Admin: 08/07/23 23:56 Dose: 3 ml Documented By: SAIDA Tamsulosin HCl (Tamsulosin Hcl 0.4 Mg Capsule) 0.4 mg PO BID [facility] Last Admin: 08/07/23 20:27 Dose: 0.4 mg Documented By: PAT Theophylline (Theophylline Anhydrous Er 300 Mg Tab.Er.12h) 150 mg PO BID [facility] Last Admin: 08/07/23 20:26 Dose: 150 mg Documented By: PAT Labs 08/08/23 05:00 08/08/23 05:00 Labs: Laboratory Results - last 24 hr 08/08/23 05:00 MCV 94.5 MCH 29.7 MCHC 31.5 RDW 11.7 Plt Count 591 H MPV 9.7 Absolute Nucleated RBC 0.000 Nucleated RBC % (auto) 0.0 Anion Gap 16 Estim Creat Clear Calc 57.5 Estimated GFR 51 Fasting Glucose 94 Calcium 9.6 Microbiology Microbiology Results: Microbiology 08/06/23 04:15 Blood Culture - Preliminary Blood - Venous No growth after 48 hours. 08/06/23 04:16 Blood Culture - Preliminary Blood - Venous No growth after 48 hours. Assessment and Plan (1) Chronic lung disease: Status: Acute Plan 68M PMH pafib, copd/moderate persistent asthma, mood disorder, bph, RAYMOND presented with shortness of breath. sepsis due to COPD/moderate persistent asthma with acute decompensation continue solumedrol, duonebs, doxy, roflumilast, singulair raymond cpap at night paroxysmal afib eliquis, metoprolol, multaq bph flomax mood disorder dvt prophylaxis - eliquis full code reason for continued hospitalization: patient continues to feel sob and wheezy Quality Stroke Does the patient have a stroke diagnosis?: No VTE Prior VTE?: No VTE Risk Level:: Medical - moderate - high VTE Device Contraindication: Treatment Not Indicated VTE Drug Contraindication: N/A - Med Ordered
[2023-08-08] MEDS: Tamsulosin HCL 0.4 MG CAPSULE PO ×2 (08:18→21:11)
[2023-08-08] MEDS: Atorvastatin Calcium 80 MG TABLET PO (08:20)
[2023-08-08] MEDS: Dronedarone HCl 400 MG TABLET PO ×2 (08:20→21:10)
[2023-08-08] MEDS: Montelukast Sodium 10 MG TABLET PO (08:21)
[2023-08-08] MEDS: Apixaban 5 MG TABLET PO ×2 (08:21→21:09)
[2023-08-08] MEDS: Roflumilast 500 MCG TABLET PO (08:22)
[2023-08-08] MEDS: buPROPion HCL 75 MG TABLET 150 MG PO ×2 (08:22→21:11)
[2023-08-08] MEDS: Doxycycline Monohydrate 100 MG CAPSULE PO ×2 (08:23→19:44)
[2023-08-08] MEDS: Theophylline Anhydrous ER 300 MG TAB.ER.12H 150 MG PO ×2 (08:23→21:09)
[2023-08-08] MEDS: methylPREDNISolone Sod Succ 40 MG/ML VIAL IVPUSH ×2 (08:25→19:44)
[2023-08-08] MEDS: Albuterol/Iprat 2.5/0.5MG 3 ML AMPUL.NEB INHALE ×4 (09:35→20:16)
[2023-08-08] MEDS: 0.9 % Sodium Chloride Flush 3 ML SYRINGE IVFLUSH (19:45)
[2023-08-08] MEDS: Metoprolol Succinate ER 100 MG TAB.ER.24H PO (21:09)
[2023-08-09] VITALS (8 sets, daily range): BP systolic 147–156; BP diastolic 68–73; PULSE 60–76; RESP 16–22; TEMP 36.1–36.9; O2SAT 95–98
[2023-08-09] MEDS: Albuterol/Iprat 2.5/0.5MG 3 ML AMPUL.NEB INHALE ×4 (08:17→20:38)
[2023-08-09] MEDS: Furosemide 20 MG TABLET PO (08:34)
[2023-08-09] MEDS: Apixaban 5 MG TABLET PO ×2 (08:34→21:12)
[2023-08-09] MEDS: Montelukast Sodium 10 MG TABLET PO (08:34)
[2023-08-09] MEDS: methylPREDNISolone Sod Succ 40 MG/ML VIAL IVPUSH ×2 (08:34→19:25)
[2023-08-09] MEDS: guaiFENesin DM 100/10/5 ML 5 ML SYRUP PO ×3 (08:34→19:25)
[2023-08-09] MEDS: Dronedarone HCl 400 MG TABLET PO ×2 (08:34→21:12)
[2023-08-09] MEDS: Theophylline Anhydrous ER 300 MG TAB.ER.12H 150 MG PO ×2 (08:35→20:22)
[2023-08-09] MEDS: Tamsulosin HCL 0.4 MG CAPSULE PO ×2 (08:35→21:12)
[2023-08-09] MEDS: buPROPion HCL 75 MG TABLET 150 MG PO ×2 (08:35→21:12)
[2023-08-09] MEDS: Atorvastatin Calcium 80 MG TABLET PO (08:36)
[2023-08-09] MEDS: Doxycycline Monohydrate 100 MG CAPSULE PO ×2 (08:37→19:25)
[2023-08-09] MEDS: 0.9 % Sodium Chloride Flush 3 ML SYRINGE IVFLUSH ×2 (08:39→20:23)
--- NOTE | 2023-08-09 09:02 | HO.PM.IMPN ---
Subjective Subjective Date of Service: 08/09/23 Interval History: Continues to have significant expiratory wheeze Respiratory Respiratory: Reports cough and Reports wheezing Allergic/Immunologic Allergic/Immunologic: Reports wheezing Physical Exam Vital Signs: Vital Signs: Last Vital Signs Temp 97.6 F 08/09/23 07:16 Pulse 76 08/09/23 08:18 Resp 18 08/09/23 08:18 BP 156/73 H 08/09/23 07:16 Pulse Ox 95 08/09/23 07:16 O2 Del Method Room Air 08/09/23 07:16 BMI result Body Mass Index 30.5 Const: Other: Appearance: Alert. Oriented X3. No acute distress. Eyes: Pupils equal, round and reactive to light. ENT: Pharynx normal. Neck: Normal inspection. Neck supple. No lymph nodes noted. No crepitus CVS: Normal heart rate and rhythm. Pulses normal. Normal S1 and S2 Respiratory: Mild respiratory distress. Bilateral wheezing, decreased breath sounds, no rales or crackles Abdomen: Soft and nontender. No rigidity. No distention. Skin: Skin warm and dry. Normal skin color. Normal skin turgor. Extremities: No lower extremity edema. No Lacerations. No Rash Neuro: Oriented X 3. No motor deficit. No sensory deficit. Moving all extremities. No slurred speech. CN 2 through 12 grossly intact Psych: calm, cooperative, normal affect Objective Data Active Medications Acetaminophen (Acetaminophen 325 Mg Tablet) 650 mg PO Q6H PRN PRN Reason: Pain, Mild (Pain Scale 1-3) Last Admin: 08/06/23 22:59 Dose: 650 mg Documented By: MERRICK Albuterol/Ipratropium (Albuterol/Iprat 2.5/0.5mg 3 Ml Ampul.Neb) 3 ml INHALE RQ4H WHILE AWAKE [facility] Last Admin: 08/09/23 08:17 Dose: 3 ml Documented By: SHIN Albuterol/Ipratropium (Albuterol/Iprat 2.5/0.5mg 3 Ml Ampul.Neb) 3 ml INHALE RQ4H WHILE AWAKE PRN PRN Reason: sob Apixaban (Apixaban 5 Mg Tablet) 5 mg PO BID [facility] Last Admin: 08/09/23 08:34 Dose: 5 mg Documented By: VALE Atorvastatin Calcium (Atorvastatin Calcium 80 Mg Tablet) 80 mg PO DAILY [facility] Last Admin: 08/09/23 08:36 Dose: 80 mg Documented By: VALE Bupropion HCl (Bupropion Hcl 75 Mg Tablet) 150 mg PO BID [facility] Last Admin: 08/09/23 08:35 Dose: 150 mg Documented By: VALE Doxycycline Monohydrate (Doxycycline Monohydrate 100 Mg Capsule) 100 mg PO Q12H [facility] Last Admin: 08/09/23 08:37 Dose: 100 mg Documented By: VALE Dronedarone (Dronedarone Hcl 400 Mg Tablet) 400 mg PO BID [facility] Last Admin: 08/09/23 08:34 Dose: 400 mg Documented By: VALE Furosemide (Furosemide 20 Mg Tablet) 20 mg PO DAILY [facility]; Protocol Last Admin: 08/09/23 08:34 Dose: 20 mg Documented By: VALE Guaifenesin/Dextromethorphan (Guaifenesin Dm 100/10/5 Ml 5 Ml Syrup) 5 ml PO Q4H PRN PRN Reason: Cough Last Admin: 08/09/23 08:34 Dose: 5 ml Documented By: VALE Melatonin (Melatonin 3 Mg Tablet) 6 mg PO BEDTIME PRN PRN Reason: Insomnia Methylprednisolone Sodium Succinate (Methylprednisolone Sod Succ 40 Mg/Ml Vial) 40 mg IVPUSH Q12H [facility] Last Admin: 08/09/23 08:34 Dose: 40 mg Documented By: VALE Metoprolol Succinate (Metoprolol Succinate Er 100 Mg Tab.Er.24h) 100 mg PO BEDTIME [facility]; Protocol Last Admin: 08/08/23 21:09 Dose: 100 mg Documented By: SAIDA Montelukast Sodium (Montelukast Sodium 10 Mg Tablet) 10 mg PO DAILY [facility] Last Admin: 08/09/23 08:34 Dose: 10 mg Documented By: VALE Roflumilast (Roflumilast 500 Mcg Tablet) 500 mcg PO DAILY [facility] Last Admin: 08/08/23 08:22 Dose: 500 mcg Documented By: JULIETTE Sodium Chloride (0.9 % Sodium Chloride Flush 3 Ml Syringe) 3 ml IVFLUSH QSHIFT [facility] Last Admin: 08/09/23 08:39 Dose: 3 ml Documented By: VALE Tamsulosin HCl (Tamsulosin Hcl 0.4 Mg Capsule) 0.4 mg PO BID [facility] Last Admin: 08/09/23 08:35 Dose: 0.4 mg Documented By: VALE Theophylline (Theophylline Anhydrous Er 300 Mg Tab.Er.12h) 150 mg PO BID [facility] Last Admin: 08/09/23 08:35 Dose: 150 mg Documented By: VALE Labs 08/08/23 05:00 08/08/23 05:00 Microbiology Microbiology Results: Microbiology 08/06/23 04:15 Blood Culture - Preliminary Blood - Venous No growth after 48 hours. 08/06/23 04:16 Blood Culture - Preliminary Blood - Venous No growth after 48 hours. Assessment and Plan (1) COPD with acute exacerbation: Status: Acute Plan 68M PMH pafib, copd/moderate persistent asthma, mood disorder, bph, RAYMOND presented with shortness of breath. sepsis due to COPD/moderate persistent asthma with acute decompensation continue solumedrol, duonebs, doxy, roflumilast, singulair raymond cpap at night paroxysmal afib eliquis, metoprolol, multaq bph flomax mood disorder dvt prophylaxis - eliquis full code reason for continued hospitalization: patient continues to feel sob and wheezy ; anticipate d/c home tomorrow Quality Stroke Does the patient have a stroke diagnosis?: No VTE Prior VTE?: No VTE Risk Level:: Medical - moderate - high VTE Device Contraindication: Treatment Not Indicated VTE Drug Contraindication: N/A - Med Ordered
--- NOTE | 2023-08-09 13:13 | MHC.CM.PN ---
EMR REVIEWED AND PER MD ROUNDS, PT IS NOT MEDICALLY CLEARED FOR DC HOME (SOB AND WHEEZING CONTINUES) CM WILL CONTINUE TO FOLLOW FOR ANY CHANGES IN DC PLAN/NEEDS.
[2023-08-09] MEDS: Metoprolol Succinate ER 100 MG TAB.ER.24H PO (21:12)
[2023-08-10] MEDS: guaiFENesin DM 100/10/5 ML 5 ML SYRUP PO (00:29)
[2023-08-10] MEDS: 0.9 % Sodium Chloride Flush 3 ML SYRINGE IVFLUSH (00:30)
[2023-08-10 03:08] VITALS: BP 132/63; PULSE 61; RESP 16; TEMP 36.8; O2SAT 94
[2023-08-10 08:00] VITALS: BP 151/70; PULSE 60; RESP 18; TEMP 36.8; O2SAT 95
[2023-08-10] MEDS: Albuterol/Iprat 2.5/0.5MG 3 ML AMPUL.NEB INHALE (08:30)
[2023-08-10 08:31] VITALS: PULSE 64; RESP 18; O2SAT 96
[2023-08-10] MEDS: Atorvastatin Calcium 80 MG TABLET PO (08:52)
[2023-08-10] MEDS: Montelukast Sodium 10 MG TABLET PO (08:52)
[2023-08-10] MEDS: Apixaban 5 MG TABLET PO (08:52)
[2023-08-10] MEDS: Dronedarone HCl 400 MG TABLET PO (08:52)
[2023-08-10] MEDS: Tamsulosin HCL 0.4 MG CAPSULE PO (08:52)
[2023-08-10] MEDS: Doxycycline Monohydrate 100 MG CAPSULE PO (08:52)
[2023-08-10] MEDS: Roflumilast 500 MCG TABLET PO (08:52)
[2023-08-10] MEDS: buPROPion HCL 75 MG TABLET 150 MG PO (08:52)
[2023-08-10] MEDS: Theophylline Anhydrous ER 300 MG TAB.ER.12H 150 MG PO (08:52)
[2023-08-10] MEDS: methylPREDNISolone Sod Succ 40 MG/ML VIAL IVPUSH (08:53)
--- NOTE | 2023-08-10 09:02 | PM.DS ---
DS: Providers Provider Date of Service: 08/10/23 Date of admission: 08/07/23 07:54 Primary care physician: Guilherme Mcallister MD DS: Diagnosis Discharge Diagnosis (1) COPD with acute exacerbation: Status: Acute DS: Summary Hospital Course Hospital Course: HPI : 68M PMH pafib, copd/moderate persistent asthma, mood disorder, bph, RAYMOND presented with shortness of breath. Patient states that he has had viral syndrome for the past week. Reports nausea vomiting, diarrhea, shortness of breath. Vomiting and diarrhea have subsided for the past 2 days, appetite has improved. But continues to be short of breath. Patient came to the ED on insistence of his . Denies fevers, chills, chest pain. Hospital course: Patient was admitted and initiated on IV systemic steroids. Scheduled and p.r.n. DuoNebs throughout hospital course. Wheezing and symptoms significantly improved prior to discharge. Patient was also initiated on doxycycline and completed 5 day course prior to discharge. Chronic home medications continued for chronic diseases. Patient is stable to be discharged with p.o. prednisone Status at Discharge Functional status at discharge: independent ambulation Overall status at discharge: patient is back to baseline Time Attestation Discharge Coordination Time (in mins): 20 Quality: Safe Use of Opioids Does Pt have an Active Cancer Diagnosis on the Problem List?: No Quality: Stroke Does the patient have a stroke diagnosis?: No Physical Exam Vital Signs: Vital Signs: Last Vital Signs Temp 98.2 F 08/10/23 08:00 Pulse 64 08/10/23 08:31 Resp 18 08/10/23 08:31 BP 151/70 H 08/10/23 08:00 Pulse Ox 95 08/10/23 08:00 O2 Del Method Room Air 08/10/23 08:00 BMI result Body Mass Index 30.5 Appearance: Alert. Oriented X3. No acute distress. Eyes: Pupils equal, round and reactive to light. ENT: Pharynx normal. Neck: Normal inspection. Neck supple. No lymph nodes noted. No crepitus CVS: Normal heart rate and rhythm. Pulses normal. Normal S1 and S2 Respiratory: No respiratory distress, wheezing improved Abdomen: Soft and nontender. No rigidity. No distention. Skin: Skin warm and dry. Normal skin color. Normal skin turgor. Extremities: No lower extremity edema. No Lacerations. No Rash Neuro: Oriented X 3. No motor deficit. No sensory deficit. Moving all extremities. No slurred speech. CN 2 through 12 grossly intact Psych: calm, cooperative, normal affect DS: Data Data Completed and Pending Labs on day of discharge: Preliminary micro results at discharge 08/06/23 04:15 Blood Culture - Preliminary Blood - Venous No growth after 48 hours. 08/06/23 04:16 Blood Culture - Preliminary Blood - Venous No growth after 48 hours. Imaging Chest x-ray: Radiologist's impression: ITS Impressions Chest X-Ray 08/05/23 21:05 IMPRESSION: Chronic interstitial thickening with waxing and wanning multifocal airspace opacities suspicious for an infectious/inflammatory process and small airways disease. Recommend short-term follow-up to ensure appropriate resolution and rule out occult malignancy. Discharge Plan Discharge Anticipated Discharge Date/Time: 08/10/23 09:06 Patient Disposition: Home, Self-Care Discharge Diagnosis: COPD with acute exacerbation Referrals: Guilherme Mcallister MD [Primary Care Provider] - 1 Week Discharge Medications: Continued furosemide 20 mg tablet 20 mg PO DAILY Qty: 90 3RF montelukast 10 mg tablet 10 mg PO DAILY Qty: 90 3RF arformoterol [Brovana] 15 mcg/2 mL solution for nebulization 15 mcg inhalation BID Qty: 360 3RF atorvastatin 80 mg tablet 80 mg PO DAILY Qty: 90 3RF levalbuterol HCl 1.25 mg/3 mL solution for nebulization 1.25 mg inhalation BID 90 Days Qty: 540 3RF tamsulosin [Flomax] 0.4 mg capsule 0.4 mg PO BID 90 Days Qty: 180 2RF bupropion HCl 75 mg tablet 150 mg PO BID 90 Days Qty: 360 3RF Multaq 400 mg tablet 400 mg PO BID 90 Days Qty: 180 3RF Rx Instructions: must administer with a meal/food Eliquis 5 mg tablet 5 mg PO BID Qty: 180 3RF budesonide 0.5 mg/2 mL suspension for nebulization 0.5 mg inhalation BID Qty: 360 3RF roflumilast 500 mcg tablet 500 mcg PO DAILY Qty: 90 3RF Tezspire 210 mg/1.91 mL (110 mg/mL) Pen Injector 210 mg SUBCUT Q4W metoprolol succinate 100 mg tablet extended release 24 hr 100 mg PO DAILY 90 Days Qty: 90 3RF albuterol sulfate 90 mcg/actuation HFA aerosol inhaler 2 puff inhalation QID (DME) nebulizers Misc See Rx Instructions .Route Rx Instructions: As directed (DME) CPAP Machine/Device Device See Rx Instructions .Route Rx Instructions: As directed theophylline 300 mg tablet extended release 12 hr 150 mg PO Q12H 30 Days Qty: 30 2RF prednisone 10 mg tablet 20 mg PO DAILY 30 Days Qty: 60 9RF Discharge Orders: Discharge Order (Routine); Ordered 08/10/23 Ordered By: Kailey Nunes Diet: Advance to usual diet Activity on Discharge: As tolerated Stand Alone Forms: Patient Portal Discharge page Care Plan Goals: Follow-up with PCP within 1 week Health Concerns: COPD Plan of Treatment: Continue p.o. prednisone Assessment: As above
--- NOTE | 2023-08-10 10:40 | MHC.CM.PN ---
IMM 07/12/23 Patient is discharged today to home with family assist and transport.
== END 2023-08-10 11:39 | disposition home or self-care (01) | DRG 872 ==
LOC: HO.ED 08-06 06:13 → HO.EDOVER 08-06 07:37 → HO.S3 08-06 23:32
PROVIDERS: Admitting Provider Internal Medicine; Emergency Provider Emergency Medicine; PCP Family Medicine; Visit Provider Student in an Organized Health Care Education/Training Program
DX: A41.9 Sepsis, unspecified organism (principal); J44.1 Chronic obstructive pulmonary disease with (acute) exacerbation; J45.41 Moderate persistent asthma with (acute) exacerbation; N40.0 Benign prostatic hyperplasia without lower urinary tract symptoms; F39 Unspecified mood [affective] disorder; G47.33 Obstructive sleep apnea (adult) (pediatric); I48.0 Paroxysmal atrial fibrillation; Z20.822 Contact with and (suspected) exposure to COVID-19; Z87.891 Personal history of nicotine dependence; Z91.041 Radiographic dye allergy status; Z79.01 Long term (current) use of anticoagulants; Z79.899 Other long term (current) drug therapy
CPT/HCPCS: 0241U; 36415; 71046; 80048; 80053; 80076; 83605; 83880; 84484; 85025; 85027; 87040; 93005; 94640; 99221; 99285; J0696; J2920; J2930; J3475

== ENCOUNTER → 2023-08-05 21:20 | Outpatient (BNV) | payer MEDICARE, OTHER, SELFPAY | PROVIDERS: Admitting Provider Internal Medicine; Emergency Provider Emergency Medicine; PCP Family Medicine; Visit Provider Internal Medicine | DX: R06.09 Other forms of dyspnea (principal); R94.31 Abnormal electrocardiogram [ECG] [EKG] | CPT/HCPCS: 93010 ==

== ENCOUNTER → 2023-08-06 07:26 | Outpatient (BNV) | payer MEDICARE, OTHER, SELFPAY | PROVIDERS: Admitting Provider Internal Medicine; Emergency Provider Emergency Medicine; Visit Provider Internal Medicine | DX: J44.1 Chronic obstructive pulmonary disease with (acute) exacerbation (principal); J45.51 Severe persistent asthma with (acute) exacerbation | CPT/HCPCS: 99223; 99232; 99233; 99238 ==

== ENCOUNTER 2023-08-28 10:37 | Outpatient (AMB) | payer MEDICARE, OTHER, SELFPAY ==
[2023-08-28 10:39] VITALS: PULSE 89; O2SAT 93; BMI 31.0
--- NOTE | 2023-08-28 10:39 | MHC.OFFVIS ---
Intake Vital Signs 08/28/23 10:39 Height 5 ft 9 in Weight 210 lb BMI 31.0 Pulse 89 Pulse Source Pulse Oximeter Pulse Oximetry (%) 93 Oxygen Delivery Method Room Air Intake Visit Reasons: raymond : 4 month f/u Trauma Program Manager Required: No Allergies watermelon [WATERMELON] Allergy (Severe, Verified 08/28/23 10:40) ANAPHYLAXIS Iodinated Contrast Media [IV CONTRAST] Allergy (Intermediate, Verified 08/28/23 10:40) LIGHT HEADED AND SHORTNESS OF BREATH HPI HPI Comments History of Present Illness Details Patient is a 68 y/o man with history of underlying pulmonary nodules, RAYMOND on CPAP, asthma COPD overlap syndrome, tracheobronchomalacia in addition to hypersensitivity pneumonitis due to multiple exposures especially at while he was working. He has been using CPAP therapy the CPAP therapy has been very affecting beneficial. The CPAP therapy he uses every night for more than 4 hours. Recently he did have a CT scan of his chest for the lung cancer screening program and is nodular densities have resolved which is very reassuring. He is scheduled for the CT scan in a year's time. I am hopeful that we can decrease the amount of Xopenex that he is using and then hopefully decrease the amount of budesonide that he is using. His CPAP therapy has been affecting beneficial. He has been getting supplies through [employer] now regularly. His CPAP therapy he does use for more than 4 hours a night. He has lost about 30 lb. He still on Daliresp that is likely contributing to that. If he co 05/24/2022 the patient has a telephone visit today. Several days ago he started developing worsening cough in addition to fevers. He did test positive for COVID about 3-4 days ago. He was not placed on PACS Flovent. Currently he is on his respiratory therapy. He is also on his baseline prednisone. He is complaining of productive cough with green mucus. Moderate severity. His fever is a little better. He has been having significant wheezing and chest tightness. He has been using his nebulizer therapy throughout the day. Will go ahead and place him on a prednisone taper in addition to start him on Levaquin. He knows the adverse effects including tendinitis. If he has any adverse effects he is to call. Otherwise if his respiratory status gets worse need to go to the ER for further evaluation. 09/13/2022 the patient is here for pulmonary follow-up visit. Overall the patient is doing better. He has been on the test prior injections now for few months and appear to be working better for him. He still can get off the prednisone. He recently ran out of prednisone his breathing got worse again. He had been down to 10 mg alternating with 20 mg daily. I did see him in a prednisone for him to slowly wean down from 20 mg which I am hopeful that he can wean slowly down to 10 mg in due time. He will continue with current respiratory therapy. He continues uses CPAP at nighttime. CPAP therapy continues to be affecting beneficial and he does use it for more than 4 hours a night. 01/03/2023 the patient is here for pulmonary follow-up visit. The patient had been hospitalized with worsening respiratory symptoms. He had been on a prednisone taper. However, now is completely off. He has been using his nebulized therapy in addition to his respiratory medications. Continues to have chest tightness and wheezing. He is also having coughing. Moderate severity. The patient has been on multiple medication now on biologic therapy. The only other option to try to improve his significant bronchospasms would be to try theophylline. He does have a history of atrial fibrillation so and to be careful with the dose. Will start him on a very small dose and see if he can tolerated. The hope is with the low-dose theophylline he may be able to be on less amount of prednisone. The patient also continues uses CPAP. He has not been getting supplies the of from the [employer], I did send a message to the [employer] and did fill out another script. The CPAP therapy has been very affecting beneficial for him. He does use it for more than 4 hours. However, without supplies the patient is not able to use it effectively. In the office we also reviewed his recent CT scan that he had 12/18/2022. There is interval improvement of the significant bronchiolitis and nodular densities appreciated on the CT scan back in he was in the hospital in September/October. 03/14/2023 the patient is here for a pulmonary follow-up visit. The patient has been having hard time with his breathing. Having significant chest tightness and wheezing. Moderate to severe. The patient was started on theophylline during the last visit. Although he started developing some uncomfortable symptoms with nausea and headaches and therefore the patient has stopped it. Once she stopped the medication symptoms her side effects got better. He is also been dealing with some cardiac medication changes. The patient also has been off the prednisone altogether specially because of his other comorbidities. He also has been on the biologic therapy, Tezspire. still having hard time with his breathing. He has significant chest tightness and wheezing on exam. We did provide him Solu-Medrol because of significant wheezing. He is going to have to start prednisone again. Will try to keep him on a low dose. 04/18/2023 the patient is here for a pulmonary follow-up visit. He is doing a lot better. He is back on his regular maintenance therapies which appeared to be effective in beneficial. He has been on a very low dose of prednisone of 10 mg daily. He is wondering if he can cut back a little bit. I did give him instructions on how to go very slowly down on the medication. He has been on the Tezspire biologic injections every month and appears to be working well for him. He is also continued the nebulized therapy at least twice a day. The patient also continues uses CPAP at nighttime. CPAP therapy continues to be affecting beneficial. He does use it for more than 4 hours a night. His CPAP machine is now greater than 7 years old. Although still working well. Therefore no need to replace at this time. Although will reassess during his next visit. 08/28/2023 the patient is here for sick visit. He is having hard time with his breathing. The patient recently call the office with worsening risk was sent to the ER. He wants admitted on August 04 to the hospital. He had a chest x-ray demonstrating bilateral pneumonia. This is superimposed on his underlying interstitial lung disease. He was treated with prednisone addition to antibiotics subsequently discharged. He did not require oxygen upon discharge. The patient has been weaning off the prednisone down to 10 mg of prednisone having hard time with his breathing. He is then in bed now for about 3 days. His coughing has gotten worse expectorating discolored mucus. Denies any hemoptysis. In the office he does have significant wheezing chest tightness. Will go ahead and give him a couple treatments of DuoNeb. Hopefully we can improve his respiratory symptoms we can start antibiotics and give him additional Solu-Medrol and prednisone for home. If however he does not improve after the breathing treatments then will consider transferring him to the ER. [facility] [place] Medical History Chronic lung disease Tubular adenoma of colon (~2005) COPD (chronic obstructive pulmonary disease) Pulmonary nodules RAYMOND on CPAP Chronic rhinitis Asthma-COPD overlap syndrome PAF (paroxysmal atrial fibrillation) (~2017) Echocardiogram abnormal Encounter for screening for lung cancer Edema leg Venous insufficiency of both lower extremities AC (acromioclavicular) joint arthritis BPH (benign prostatic hyperplasia) Seasonal allergies Hyperlipidemia Surgical History History of appendectomy History of esophagogastroduodenoscopy (EGD) History of total left hip replacement (~2019) History of repair of right rotator cuff (~2017) History of nasal septoplasty (~2008) History of colonoscopy History of cataract (~2009) Family History Father No problems noted. Mother CAD (coronary artery disease) CHF (congestive heart failure) HTN (hypertension) Brother No problems noted. Brother No problems noted. Sister No problems noted. Sister No problems noted. Sister No problems noted. Son No problems noted. Son No problems noted. Social History Household Members: Spouse Housing: House Do you presently have visiting nurse or other home services: No Alcohol intake: current Alcohol intake frequency: holidays/special occasions only Patient Tobacco Use Status: Former Tobacco user Tobacco use type: Cigarette Years Smoked: 40 years e-Cigarette/Vaping Use: Former Use Second Hand Smoke Exposure: No Advance Directives Date on File: 10/10/22 service: Yes Current occupational status: retired Cognitive needs: No Hearing needs: No Vision needs: No Review of Systems Const Reports daytime sleepiness, Reports difficulty sleeping, Reports fatigue, Reports malaise and Reports weight gain Eyes Denies change in vision ENT Reports nasal congestion, Reports nasal discharge and Reports sore throat Card Denies chest pain, Reports dyspnea and Reports dyspnea on exertion Resp Reports change in phlegm color, Denies chest congestion, Reports cough, Denies hemoptysis, Reports excessive phlegm production, Reports dyspnea, Reports dyspnea on exertion and Reports wheezing GI Reports no additional complaints Musc Reports no additional complaints Skin/Breast Denies rash Neuro Reports no additional complaints Psych Reports no additional complaints Endo Reports fatigue and Denies heat intolerance Kelvin/Lymph Denies easy bleeding, Denies easy bruising and Denies lymphadenopathy Aller/Immun Reports wheezing Physical Exam Vital Signs: Last Vital Signs Pulse 89 08/28/23 10:39 Pulse Ox 93 08/28/23 10:39 Oxygen Delivery Method Room Air 08/28/23 10:39 BMI result Body Mass Index 31.0 Const General: alert and tired appearing Orientation/consciousness: patient oriented x3 Eyes Pupils: Equal, round and reactive pupils present Neck Neck: Yes normal visual inspection, Yes full ROM and Yes no lymphadenopathy Chest Chest palpation & inspection: normal inspection of the chest Resp Effort & Inspection: Actively coughing and prolonged expiratory phase Auscultation: rhonchi, wheezes and diminished lung sounds Cardio Rate: regular rate Rhythm: regular rhythm Heart sounds: S1 normal heart sound present and S2 normal heart sound present GI Palpation (GI): Soft to palpation and nontender Auscultation: normal bowel sounds General: Yes no CVA tenderness Back/Spine/Pelvis Back: no CVA tenderness Skin General skin exam: no rashes or lesions noted Neuro General: patient oriented x3 Cranial nerves: Yes Equal, round and reactive pupils present Extrem General: Yes no clubbing, cyanosis or edema Office Procedures Nebulizer Treatment Nebulizer Treatment [id number]/[id number] RX initial, or Nebulizer Subsequent Treatment Office Meds methylprednisolone sod suc(PF) 125 mg/2 mL solution for injection Performing Provider: Sha Head MD Performing Location: [facility] Pulmonology Services Administered by: Qiana Valencia LPN on 08/28/23 11:33 Dose Route Admin Location Dispensed Lot Number Expiration Date [facility] Pump Rebuilder 125 mg IM R buttock 2 mL [id number] 05/19/25 4411-9833-13 [employer] ipratropium 0.5 mg-albuterol 3 mg (2.5 mg base)/3 mL nebulization soln Performing Provider: Sha Head MD Performing Location: [facility] [place] Pulmonology Services Administered by: Qiana Valencia LPN on 08/28/23 11:01 Dose Route Admin Location Dispensed Lot Number Expiration Date [place] Pump Rebuilder 3 mL inhalation 3 mL [id number] 03/19/25 88232-339-27 [employer] Assessment & Plan Assessment & Plan (1) Bronchopneumonia: Code(s): J18.0 - Bronchopneumonia, unspecified organism (2) Asthma-COPD overlap syndrome: Code(s): J44.9 - Chronic obstructive pulmonary disease, unspecified (3) COPD (chronic obstructive pulmonary disease): Code(s): J44.9 - Chronic obstructive pulmonary disease, unspecified Qualifiers: COPD type: COPD with acute exacerbation Qualified Code(s): J44.1 - Chronic obstructive pulmonary disease with (acute) exacerbation (4) Pulmonary nodules: Code(s): R91.8 - Other nonspecific abnormal finding of lung field (5) RAYMOND on CPAP: Code(s): G47.33 - Obstructive sleep apnea (adult) (pediatric); Z99.89 - Dependence on other enabling machines and devices (6) Chronic rhinitis: Code(s): J31.0 - Chronic rhinitis Plan Solumedrol 125mg IM x 1, then taper Duoneb x 2 in the office start vantin/doxucycline x 10 days continue Tezspire [id number] continue Brovana/BUdesonide BID ANN as needed continue APAP Needs to go to the ED if worsens F/U 2 weeks Orders: Orders AMB Nebulizer Treatment Today J44.9 - Chronic obstructive pulmonary disease, unspecified AMB Methylprednisolone Injection Today J44.0 - Chronic obstructive pulmonary disease with (acute) lower respiratory infection XR chest 2V Today J18.0 - Bronchopneumonia, unspecified organism Medications: New cefpodoxime must administer with a meal/food 200 mg PO BID 20 tabs 0RF doxycycline hyclate 100 mg PO BID 20 caps 0RF 10 days prednisone PO daily; Take 6 tabs daily x 3 days, then 5 tabs x 3 days, then 4 tabs x 3 days, then 3 tabs x 3 days, then 2 tabs daily x 3 days, then 1 tab x 3 days to complete. 63 tabs 0RF 18 days Coding Level of Care Code Est Pt Level 4 (01368) Diagnoses Bronchopneumonia J18.0 Asthma-COPD overlap syndrome J44.9 Chronic obstructive pulmonary disease with acute exacerbation J44.1 COPD type: COPD with acute exacerbation Pulmonary nodules R91.8 RAYMOND on CPAP G47.33; Z99.89 Chronic rhinitis J31.0 CPT Codes Nebulizer Treatment - Nebulizer Treatment, initial or subsequent: [id number]/MDI RX initial, or Nebulizer Subsequent Treatment ([id number]) Time Spent (min) 18
== END 2023-08-28 11:42 | disposition home or self-care (01) ==
PROVIDERS: PCP Family Medicine; Visit Provider Hospitalist
DX: J18.0 Bronchopneumonia, unspecified organism (principal); J44.9 Chronic obstructive pulmonary disease, unspecified; J44.1 Chronic obstructive pulmonary disease with (acute) exacerbation; R91.8 Other nonspecific abnormal finding of lung field; G47.33 Obstructive sleep apnea (adult) (pediatric); Z99.89 Dependence on other enabling machines and devices; J31.0 Chronic rhinitis
CPT/HCPCS: 99214

== ENCOUNTER 2023-08-30 13:37 | Inpatient (IN) | payer MEDICARE, OTHER, SELFPAY ==
[2023-08-30] VITALS (8 sets, daily range): BP systolic 120–161; BP diastolic 44–75; PULSE 68–104; RESP 23–31; TEMP 36.4–36.6; O2SAT 92–96; BMI 30.7
--- NOTE | ~2023-08-30 | XR_ITS ---
EXAMINATION: XR CHEST CLINICAL INFORMATION: Shortness of breath. COMPARISON: Chest radiograph 08/05/2023. TECHNIQUE: 2 views of the chest were obtained. FINDINGS: Unchanged cardiomediastinal silhouette. Increased interstitial thickening compared to 08/05/2023 with suggestion of a few focal areas of new reticular and hazy airspace opacities. Trace amount of right-sided pleural fluid. No pneumothorax. No acute osseous findings. Right humeral head anchors. XR/XR chest 2V IMPRESSION: Worsening interstitial thickening and a few new focal bilateral airspace opacities concerning for an atypical infectious/inflammatory process. Recommend short-term follow-up to ensure appropriate resolution.
--- NOTE | 2023-08-30 13:54 | ECG_ITS ---
Test Reason : SOB Blood Pressure : / mmHG Vent. Rate : 072 BPM Atrial Rate : 072 BPM P-R Int : 160 ms QRS Dur : 090 ms QT Int : 380 ms P-R-T Axes : 067 042 058 degrees QTc Int : 416 ms Normal sinus rhythm Normal ECG When compared with ECG of 05-AUG-2023 21:20, No significant change was found Referred By: Néstor Roberson Electronically Signed By:Sanjay Seymour
--- NOTE | 2023-08-30 14:11 | ED.GENADULT ---
HPI - General Adult General Chief complaint: Dyspnea Stated complaint: SOB COPD/PNU Time Seen by Provider: 08/30/23 13:53 Source: patient Limitations: no limitations History of Present Illness HPI narrative: 68 years old with past medical history of atrial fibrillation, COPD, moderate asthma, mood disorder, BPH, RAYMOND, who is being currently treated for pneumonia with doxycycline, presents to the emergency room for worsening dyspnea. Patient reports that at home is SpO2 was 84% in room air and that he is being using increasingly his inhalers. Patient reports that he has been on 6 days of doxycycline without improvement of his symptoms. The patient in addition denies chest pain, abdominal pain nausea or vomiting. Reports that yesterday he had a temperature of 101? and that he is having worsening productive cough over the past 5 days. Patient denies recent trauma. Denies headache, blurry vision or slurred speech No urinary symptoms Related Data Home Medications ?Medication ?Instructions ?Recorded ?Confirmed albuterol sulfate 90 mcg/actuation 2 puff inhalation QID 11/23/21 08/06/23 aerosol inhaler CPAP (CPAP Machine/Device) 02/15/22 12/27/22 nebulizers 02/15/22 12/20/22 tezepelumab-ekko 210 mg/1.91 mL 210 mg subcut Q4W 08/06/23 08/06/23 (110 mg/mL) subcutaneous pen injector (Tezspire) Previous Rx's ?Medication ?Instructions ?Recorded furosemide 20 mg tablet 20 mg PO DAILY #90 tabs 01/24/21 montelukast 10 mg tablet 10 mg PO DAILY #90 tabs 07/23/22 arformoterol 15 mcg/2 mL solution 15 mcg (2 mL) inhalation BID #360 09/17/22 for nebulization (Brovana) mL atorvastatin 80 mg tablet 80 mg PO DAILY #90 tabs 10/03/22 levalbuterol HCl 1.25 mg/3 mL 1.25 mg (3 mL) inhalation BID 90 10/11/22 solution for nebulization days #540 mL tamsulosin 0.4 mg capsule (Flomax) 0.4 mg PO BID 90 days #180 caps 12/11/22 bupropion HCl 75 mg tablet 150 mg (2 x 75 mg) PO BID 90 days 01/01/23 #360 tabs theophylline 300 mg 150 mg (1/2 x 300 mg) PO Q12H 30 01/03/23 tablet,extended release,12 hr days #30 tabs dronedarone 400 mg tablet (Multaq) 400 mg PO BID 90 days #180 tabs 05/10/23 apixaban 5 mg tablet (Eliquis) 5 mg PO BID #180 tabs 05/21/23 budesonide 0.5 mg/2 mL suspension 0.5 mg (2 mL) inhalation BID #360 05/21/23 for nebulization mL metoprolol succinate 100 mg 100 mg PO DAILY 90 days #90 tabs 06/27/23 tablet,extended release 24 hr roflumilast 500 mcg tablet 500 mcg PO DAILY #90 tabs 07/02/23 cefpodoxime 200 mg tablet 200 mg PO BID #20 tabs 08/28/23 doxycycline hyclate 100 mg capsule 100 mg PO BID 10 days #20 caps 08/28/23 prednisone 10 mg tablet See Rx Instructions PO DAILY 18 08/28/23 days #63 tabs Allergies Allergy/AdvReac Type Severity Reaction Status Date / Time watermelon [WATERMELON] Allergy Severe ANAPHYLAXIS Verified 08/30/23 13:51 Iodinated Contrast Media Allergy Intermediate LIGHT Verified 08/30/23 13:51 [IV CONTRAST] HEADED AND SHORTNESS OF BREATH Review of Systems Review of Systems: Yes all other systems are reviewed and are negative PMFSH Past Medical History Medical History COPD with acute exacerbation Chronic lung disease Tubular adenoma of colon (~2005) COPD (chronic obstructive pulmonary disease) Pulmonary nodules RAYMOND on CPAP Chronic rhinitis Asthma-COPD overlap syndrome PAF (paroxysmal atrial fibrillation) (~2017) Echocardiogram abnormal Encounter for screening for lung cancer Edema leg Venous insufficiency of both lower extremities AC (acromioclavicular) joint arthritis BPH (benign prostatic hyperplasia) Seasonal allergies Hyperlipidemia Surgical History History of appendectomy History of esophagogastroduodenoscopy (EGD) History of total left hip replacement (~2019) History of repair of right rotator cuff (~2017) History of nasal septoplasty (~2008) History of colonoscopy History of cataract (~2009) Family History Family History Father No problems noted. Mother CAD (coronary artery disease) CHF (congestive heart failure) HTN (hypertension) Brother No problems noted. Brother No problems noted. Sister No problems noted. Sister No problems noted. Sister No problems noted. Son No problems noted. Son No problems noted. Social History Social History Household Members: Spouse Housing: House Do you presently have visiting nurse or other home services: No Alcohol intake: current Alcohol intake frequency: holidays/special occasions only Patient Tobacco Use Status: Former Tobacco user Tobacco use type: Cigarette Years Smoked: 40 years Smoked in Last 30 Days: No e-Cigarette/Vaping Use: Former Use Second Hand Smoke Exposure: No Use of substances other than those prescribed or required for medical reasons: No Advance Directives: Yes Advance Directives on File: Yes Advance Directives Date on File: 10/10/22 service: Yes Current occupational status: retired Cognitive needs: No Hearing needs: No Vision needs: No Physical Exam ED Vital Signs: Vital Signs - 24 hr 08/30/23 13:49 08/30/23 14:29 08/30/23 15:50 Temperature 97.5 F Pulse Rate 73 79 87 Respiratory Rate 30 H 31 H 26 H Blood Pressure 140/59 H Pulse Oximetry 96 Oxygen Delivery Method Nasal Cannula BMI result Body Mass Index 30.7 General: Alert, Not in Distress Skin: No rash, warm HEENT: Atraumatic, No Exudate or Pharyngeal Erythema Resp: Bilateral expiratory wheezing on all lung correa Cardio: Regular rate and Rhythm, Normal S1, S2, bilateral 2 + pitting edema of LE ABD: Abd soft, non tender, no guarding or rebound. Normal Bowel sounds. : No cva tenderness Neuro: Alert, oriented x4, PERRL Strenght 5/5 on all extremities Sensation is preserved in both lower and upper extremities Index to nose: normal Cranial Nerves II-XII grossly intact No dysarthria, or aphasia No neglet. Visual correa are normal bilaterally Psych: Cooperative, NO SI Course Reevaluation(s) Reevaluation #1: Patient received albuterol however still has increased work of breathing. Will try magnesium and will continue to observe, patient's VBG was not showing any respiratory acidosis therefore I think the patient may be a good candidate for high-flow. We will continue to monitor Time: 15:08 Reevaluation #2: Patient is a formal report for x-ray showed possible bilateral atypical pneumonia, for this reason I started the patient on ceftriaxone and azithromycin. Patient's work of breathing has improved after magnesium now saturating well in room air still wheezy but at this time I do not think requires high-flow. Consulted hospitalist for admission. Time: 16:00 Medications Administered Discontinued Medications Generic Name Dose Route Start Last Admin Trade Name Peter PRN Reason Stop Dose Admin Albuterol Sulfate 5 mg/ 7.5 mg 08/30/23 15:45 08/30/23 15:50 Albuterol Sulfate 2.5 mg INHALE 08/30/23 15:46 7.5 mg ONCE ONE Administration Albuterol Sulfate 5 mg/ 0 mg 08/30/23 14:19 08/30/23 14:29 Albuterol/Ipratropium 3 ml INHALE 08/30/23 14:20 7.5 each ONCE ONE Administration Furosemide 40 mg 08/30/23 14:16 08/30/23 14:21 Furosemide 40 Mg/4 Ml Vial IVPUSH 08/30/23 14:17 40 mg ONCE ONE Administration Protocol Magnesium Sulfate 2 gm in 50 mls @ 150 mls/hr 08/30/23 14:45 08/30/23 15:52 Magnesium Sulfate/H2o IV 08/30/23 15:04 Infused ONCE ONE Infusion Ceftriaxone Sodium 2 gm/ 50 mls @ 100 mls/hr 08/30/23 15:59 08/30/23 16:27 Sodium Chloride IV 08/30/23 16:28 100 mls/hr ONCE ONE Administration Medical Decision Making Medical Decision Making [facility] Narrative: Patient presented to the emergency room for worsening shortness of breath and productive cough. Saturating 84% in room air now on 2 L nasal cannula doing slightly better, has received steroids 125 Solu-Medrol and 1 DuoNeb Patient's symptoms may be secondary to pneumonia not responding to oral antibiotic although COPD exacerbation not infectious is also possibility therefore will hold on antibiotic right now patient has bilateral lower extremity edema and bedside ultrasound showed B lines at the bases bilaterally which makes me think there is also an active component of heart failure exacerbation for which will treat the patient with furosemide IV. Will give DuoNeb, continue O2 Plan Obtain chest x-ray, COVID flu RSV CBC, BMP, BNP VBG Lab Data [facility] Lab Attestation statement: I reviewed the patient's lab results. 08/30/23 14:07 08/30/23 14:07 Labs: Lab Results 08/30/23 08/30/23 Range/Units 14:07 14:09 WBC 11.0 H (4.8-10.8) X10*3/uL RBC 3.96 L (4.60-5.80) X10*6/uL Hgb 11.8 L (14.0-18.0) g/dl Hct 37.1 L (42.0-52.0) % MCV 93.7 (80.0-98.0) fL MCH 29.8 (27.0-33.0) pg MCHC 31.8 (31.0-36.0) g/dl RDW 13.5 (11.0-16.0) % Plt Count 250 D (160-400) X10*3/uL MPV 10.1 (9.4-12.4) fL Immature Gran % (Auto) 0.9 H (0.0-0.4) % Neut % (Auto) 86.1 H (45-73) % Lymph % (Auto) 6.4 L (20-40) % [place] % (Auto) 6.3 (2-11) % Eos % (Auto) 0.2 (0-4) % Baso % (Auto) 0.1 (0-2) % Lymph # (Auto) 0.7 L (1.2-4.9) X10*3/uL [place] # (Auto) 0.7 (0.1-1.2) X10*3/uL Eos # (Auto) 0.0 (0.0-0.4) X10*3/uL Baso # (Auto) 0.0 (0.0-0.2) X10*3/uL Abs Immat Gran (auto) 0.10 H (0.00-0.03) X10*3/uL Absolute Neuts (auto) 9.5 H (2.0-8.3) x10*3/uL Absolute Nucleated RBC 0.000 (0.0-0.012) X10*3/uL Nucleated RBC % (auto) 0.0 (0.0-0.2) /100WBC Smear Tech's Comments VERIFIED VBG pH 7.46 H (7.32-7.43) VBG pCO2 36 mmHg VBG pO2 112 mmHg VBG HCO3 25 (22-26) mmol/L VBG O2 Saturation 99.0 % VBG Base Excess 2.2 mmol/L Sodium 140 (135-145) mmol/L Potassium 4.4 (3.3-5.1) mmol/L Chloride 110 H (96-108) mmol/L Carbon Dioxide 25 (22-29) mmol/L Anion Gap 9 L (12-20) BUN 32 H (9-16) mg/dL Creatinine 1.18 (0.5-1.4) mg/dL Estim Creat Clear Calc 67.9 Estimated GFR > 60 Random Glucose 110 (60-115) mg/dL Calcium 9.4 (8.4-10.2) mg/dL Troponin I High Sens 7.8 D (<3.5-35.0) ng/L B-Natriuretic Peptide 81 (<100) pg/mL Influenza Type A (PCR) NEGATIVE (Negative) Influenza Type B (PCR) NEGATIVE (Negative) RSV RNA Qual (PCR) NEGATIVE (Negative) SARS-CoV-2 RNA (RT-PCR) NEGATIVE (Negative) Independent Interpretation I performed an independent interpretation of an: EKG and Ultrasound (I personally performed, interpreted patient bedside ultrasound which showed A lines patterns on the apical correa bilaterally and B-lines bilaterally at the bases consistent with COPD exacerbation and CHF exacerbation) External Record Review External record reviewed: Inpatient record (Patient's last admission records were reviewed) Discharge Plan Discharge Clinical Impression: Acute exacerbation of chronic obstructive pulmonary disease, Respiratory failure, Pneumonia Patient Disposition: Admitted As Inpatient Print Language: Gabonese
[2023-08-30 14:15] LABS: Basophils Percent Auto 0.1 % (0-2); Eosinophils Percent Auto 0.2 % (0-4); Hematocrit 37.1 % (42.0-52.0); Hemoglobin 11.8 g/dl (14.0-18.0); Imm Gran Pct Auto 0.9 % (0.0-0.4); Lymphocytes Absolute Auto 0.7 X10*3/uL (1.2-4.9); Lymphocytes Percent Auto 6.4 % (20-40); MANUAL DIFF FLAG SCAN; Mean Corpuscular HGB Conc 31.8 g/dl (31.0-36.0); Mean Corpuscular Hemoglobin 29.8 pg (27.0-33.0); Mean Corpuscular Volume 93.7 fL (80.0-98.0); Mean Platelet Volume 10.1 fL (9.4-12.4); Monocytes Absolute Auto 0.7 X10*3/uL (0.1-1.2); Monocytes Percent Auto 6.3 % (2-11); Neutrophils Absolute Auto 9.5 x10*3/uL (2.0-8.3); Neutrophils Percent Auto 86.1 % (45-73); Platelet Count 250 X10*3/uL (160-400); Red Blood Count 3.96 X10*6/uL (4.60-5.80); Red Cell Distribution Width 13.5 % (11.0-16.0); SCAN SMEAR FLAG 1
[2023-08-30 14:20] LABS: Venous Blood Gas Refer to POC result
[2023-08-30 14:21] LABS: VBG Base Excess 2.2 mmol/L; VBG HCO3 25 mmol/L (22-26); VBG pCO2 36 mmHg; VBG pH 7.46 (7.32-7.43); VBG pO2 112 mmHg
[2023-08-30] MEDS: Furosemide 40 MG/4 ML VIAL IVPUSH (14:21)
[2023-08-30 14:29] LABS: Anion Gap 9 (12-20); Blood Urea Nitrogen 32 mg/dL (9-16); Calcium 9.4 mg/dL (8.4-10.2); Carbon Dioxide 25 mmol/L (22-29); Chloride 110 mmol/L (96-108); Creatinine Clr Calc Pharmacy 67.9; Estimated Glomerular Filt Rate > 60; Glucose Random 110 mg/dL (60-115); Potassium 4.4 mmol/L (3.3-5.1); Sodium 140 mmol/L (135-145)
[2023-08-30] MEDS: Albuterol Sulfate 5 MG, Albuterol/Iprat 2.5/0.5MG 3 ML 3 ML INHALE (14:29)
[2023-08-30 14:35] LABS: B Type Natriuretic Peptide 81 pg/mL (<100)
[2023-08-30 14:39] LABS: Troponin-I High Sensitivity 7.8 ng/L (<3.5-35.0)
--- NOTE | 2023-08-30 14:49 | PC.NURSE ---
pt requesting to use bathroom, this nurse and tech advised the patient that he should use the urinal vs ambulating to the bathroom due to his current respiratory status, pt became beligerant and stated im going to the bathroom....im telling you I am going to the bathroom!! radiology then came into the room and transported patient to radiology.
[2023-08-30 14:58] LABS: SLIDE REVIEW VERIFIED
[2023-08-30 15:14] LABS: Influenza A PCR NEGATIVE (Negative); Influenza B PCR NEGATIVE (Negative); Resp Syncy Virus RNA Qual PCR NEGATIVE (Negative); SARS COV2 PCR INHOUSE NEGATIVE (Negative)
[2023-08-30] MEDS: Magnesium Sulfate/H2O 2 GM/50 ML PIGGYBACK IV (15:32)
--- NOTE | 2023-08-30 15:32 | PC.NURSE ---
iv magnesium hung per order
[2023-08-30] MEDS: Albuterol Sulfate 5 MG, Albuterol Sulfate (0.083%) 2.5 MG 7.5 MG INHALE (15:50)
--- NOTE | 2023-08-30 16:24 | PM.IMHP ---
History of Present Illness Date of Service: 08/30/23 Chief Complaint: sob 68M PMH pafib, copd/moderate persistent asthma, ild, mood disorder, bph, RAYMOND presented with shortness of breath. Patient had been admitted to [facility] [place] from 08/06/23- 08/10/23 for COPD/asthma exacerbation. Was treated with steroids and antibiotics and discharged on taper. Patient states that he really has not felt any improvement since discharge. Continues to be short of breath on minimal exertion. Was seen by Pulmonary on 08/28/2023. Was given additional steroids, DuoNebs, antibiotics. But patient continued to feel poorly so came to ED. Patient reports fever of 101 1 day prior to presentation. Denies any sick contacts. Review of Systems Review of Systems: Yes all other systems are reviewed and are negative [facility] Medical History COPD with acute exacerbation Chronic lung disease Tubular adenoma of colon (~2005) COPD (chronic obstructive pulmonary disease) Pulmonary nodules RAYMOND on CPAP Chronic rhinitis Asthma-COPD overlap syndrome PAF (paroxysmal atrial fibrillation) (~2017) Echocardiogram abnormal Encounter for screening for lung cancer Edema leg Venous insufficiency of both lower extremities AC (acromioclavicular) joint arthritis BPH (benign prostatic hyperplasia) Seasonal allergies Hyperlipidemia Family History Father No problems noted. Mother CAD (coronary artery disease) CHF (congestive heart failure) HTN (hypertension) Brother No problems noted. Brother No problems noted. Sister No problems noted. Sister No problems noted. Sister No problems noted. Son No problems noted. Son No problems noted. Surgical History History of appendectomy History of esophagogastroduodenoscopy (EGD) History of total left hip replacement (~2019) History of repair of right rotator cuff (~2017) History of nasal septoplasty (~2008) History of colonoscopy History of cataract (~2009) Social History Household Members: Spouse Housing: House Do you presently have visiting nurse or other home services: No Alcohol intake: current Alcohol intake frequency: holidays/special occasions only Patient Tobacco Use Status: Former Tobacco user Tobacco use type: Cigarette Years Smoked: 40 years Smoked in Last 30 Days: No e-Cigarette/Vaping Use: Former Use Second Hand Smoke Exposure: No Use of substances other than those prescribed or required for medical reasons: No Advance Directives: Yes Advance Directives on File: Yes Advance Directives Date on File: 10/10/22 service: Yes Current occupational status: retired Cognitive needs: No Hearing needs: No Vision needs: No Meds Allergies Allergy/AdvReac Type Severity Reaction Status Date / Time watermelon [WATERMELON] Allergy Severe ANAPHYLAXIS Verified 08/30/23 13:51 Iodinated Contrast Media Allergy Intermediate LIGHT Verified 08/30/23 13:51 [IV CONTRAST] HEADED AND SHORTNESS OF BREATH Active Medications: Current Medications Albuterol/Ipratropium (Albuterol/Iprat 2.5/0.5mg 3 Ml Ampul.Neb) 3 ml INHALE RQ4H WHILE AWAKE DARREN Doxycycline Monohydrate (Doxycycline Monohydrate 100 Mg Capsule) 100 mg PO Q12H DARREN Furosemide (Furosemide 40 Mg Tablet) 40 mg PO DAILY DARREN; Protocol Ceftriaxone Sodium 2 gm/ (Sodium Chloride) 50 mls @ 100 mls/hr IV ONCE ONE Stop: 08/30/23 16:28 Azithromycin 500 mg/ Sodium (Chloride) 250 mls @ 125 mls/hr IV ONCE ONE Stop: 08/30/23 17:58 Ceftriaxone Sodium 1 gm/ (Sodium Chloride) 50 mls @ 100 mls/hr IV Q24H DARREN Methylprednisolone Sodium Succinate (Methylprednisolone Sod Succ 40 Mg/Ml Vial) 40 mg IVPUSH Q12H DARREN Sodium Chloride (0.9 % Sodium Chloride Flush 3 Ml Syringe) 3 ml IVFLUSH QSHIFT [facility] Home Medications ?Medication ?Instructions ?Recorded ?Confirmed ?Last Taken ?Type albuterol sulfate 90 mcg/actuation 2 puff inhalation QID PRN 11/23/21 08/30/23 08/05/23 History aerosol inhaler Shortness Of Breath CPAP (CPAP Machine/Device) 02/15/22 12/27/22 08/05/23 History nebulizers 02/15/22 12/20/22 08/05/23 History tezepelumab-ekko 210 mg/1.91 mL 210 mg subcut Q4W 08/06/23 08/30/23 07/18/23 History (110 mg/mL) subcutaneous pen injector (Tezspire) furosemide 20 mg tablet 20 mg PO Q48H 08/30/23 08/30/23 Unknown History metoprolol succinate 100 mg 100 mg PO BEDTIME 08/30/23 08/30/23 Unknown History tablet,extended release 24 hr prednisone 10 mg tablet See Taper PO DAILY 08/30/23 08/30/23 08/30/23 History theophylline 300 mg 300 mg PO Q48H 08/30/23 08/30/23 Unknown History tablet,extended release,12 hr Physical Exam Vital Signs and Narrative: Vital Signs: Last Vital Signs Temp 97.5 F 08/30/23 13:49 Pulse 87 08/30/23 15:50 Resp 26 H 08/30/23 15:50 BP 140/59 H 08/30/23 13:49 Pulse Ox 96 08/30/23 13:49 O2 Del Method Nasal Cannula 08/30/23 13:49 Oxygen Flow Rate 2 08/30/23 13:49 BMI result Body Mass Index 30.7 General: AO X 3, dyspneic Resp: wheezes, tight bilateral, accessory muscles used CVS: S1,S2,RRR, trace edema GI: soft, non tender, non distended Neuro: motor grossly intact, alert Psych: appropriate affect, appropriate insight Results Labs 08/30/23 14:07 08/30/23 14:07 Labs: Laboratory Results - last 24 hr 08/30/23 08/30/23 14:07 14:09 MCV 93.7 MCH 29.8 MCHC 31.8 RDW 13.5 Plt Count 250 D MPV 10.1 Immature Gran % (Auto) 0.9 H Neut % (Auto) 86.1 H Lymph % (Auto) 6.4 L [place] % (Auto) 6.3 Eos % (Auto) 0.2 Baso % (Auto) 0.1 Lymph # (Auto) 0.7 L [place] # (Auto) 0.7 Eos # (Auto) 0.0 Baso # (Auto) 0.0 Abs Immat Gran (auto) 0.10 H Absolute Neuts (auto) 9.5 H Absolute Nucleated RBC 0.000 Nucleated RBC % (auto) 0.0 Smear Tech's Comments VERIFIED VBG pH 7.46 H VBG pCO2 36 VBG pO2 112 VBG HCO3 25 VBG O2 Saturation 99.0 VBG Base Excess 2.2 Anion Gap 9 L Estim Creat Clear Calc 67.9 Estimated GFR > 60 Random Glucose 110 Calcium 9.4 Troponin I High Sens 7.8 D B-Natriuretic Peptide 81 Influenza Type A (PCR) NEGATIVE Influenza Type B (PCR) NEGATIVE RSV RNA Qual (PCR) NEGATIVE SARS-CoV-2 RNA (RT-PCR) NEGATIVE Imaging Radiologist's Impressions: Impressions Chest X-Ray 08/30/23 14:58 IMPRESSION: Worsening interstitial thickening and a few new focal bilateral airspace opacities concerning for an atypical infectious/inflammatory process. Recommend short-term follow-up to ensure appropriate resolution. Assessment and Plan (1) Respiratory failure: Status: Acute Plan 68M PMH pafib, copd/moderate persistent asthma, ild, mood disorder, bph, RAYMOND presented with shortness of breath COPD/moderate persistent asthma/ILD with acute decompensation No sepsis - tachycardia likely due to bronchodilators IV steroids, bronchodilators, ceftriaxone and doxycycline, pulmonary eval Paroxysmal atrial fibrillation Metoprolol, Multaq, apixaban Chronic unspecified CHF Lasix Check echo BPH Flomax RAYMOND CPAP at night DVT prophylaxis-on Eliquis Full code Patient in significant respiratory distress, due to underlying advanced lung disease, expected require at least 2 midnights inpatient Quality Stroke Does the patient have a stroke diagnosis?: No VTE Prior VTE?: No VTE Risk Level:: Medical - moderate - high VTE Device Contraindication: Treatment Not Indicated VTE Drug Contraindication: N/A - Med Ordered
[2023-08-30] MEDS: cefTRIAXone sodium 2 GM in 0.9 % Sodium Chloride 50 ML IV (16:27)
--- NOTE | 2023-08-30 16:53 | PHA.MEDREC ---
Pharmacy Consult ? Medication Reconciliation Pharmacy has completed the medication reconciliation. Patient's had list of medications. Patient report he takes lasix about every other day. Patient report he had his first dose of his prednisone taper today. Serene Lemon, Pharmd
[2023-08-30] MEDS: Azithromycin 500 MG in 0.9 % Sodium Chloride 250 ML 125 MG IV (17:08)
[2023-08-30] MEDS: methylPREDNISolone Sod Succ 40 MG/ML VIAL IVPUSH (17:08)
--- NOTE | 2023-08-30 17:10 | PC.NURSE ---
patient a&ox3, pt stitting at bedside talking with , pt sinus tach on monitor, denies pain/discomfort, iv abx running per order, pt gets oob to bedside to use urinal however has increased dyspnea when doing so. call cao within reach, will continue to monitor
--- NOTE | 2023-08-30 17:13 | PC.NURSE ---
patient a&ox3, medicated per order, panel monitor intact nsr 90s, pt rr in mid 20s, O2 sat low 90s and is now on room air, pt continues to speak in short sentences and gets dyspnic with movement, family at bedside, will continue to monitor
--- NOTE | 2023-08-30 19:03 | MHC.EDTECH ---
[facility] care @1900, received report from [employer] Criselda
[2023-08-30] MEDS: Albuterol/Iprat 2.5/0.5MG 3 ML AMPUL.NEB INHALE (19:05)
--- NOTE | 2023-08-30 19:29 | PC.NURSE ---
This RN assumed pt care @ 1900. Plan of care ongoing.
[2023-08-30] MEDS: Tamsulosin HCL 0.4 MG CAPSULE PO (21:42)
[2023-08-30] MEDS: Apixaban 5 MG TABLET PO (21:42)
[2023-08-30] MEDS: Metoprolol Succinate ER 100 MG TAB.ER.24H PO (21:42)
--- NOTE | 2023-08-30 21:45 | PC.NURSE ---
Pt ca&ox4, no signs of distress. Pt medicated per jul. Pt advised 2 meds still required from pharmacy. Pt requested and HOB lowered. Plan of care ongoing.
[2023-08-30] MEDS: buPROPion HCL 75 MG TABLET 150 MG PO (21:59)
[2023-08-30] MEDS: Dronedarone HCl 400 MG TABLET PO (21:59)
[2023-08-31] VITALS (11 sets, daily range): BP systolic 127–166; BP diastolic 67–85; PULSE 68–94; RESP 18–20; TEMP 36.6–37.4; O2SAT 93–96
[2023-08-31] MEDS: 0.9 % Sodium Chloride Flush 3 ML SYRINGE IVFLUSH ×4 (00:57→20:58)
[2023-08-31] MEDS: Benzonatate 100 MG CAPSULE 200 MG PO ×4 (02:33→20:57)
[2023-08-31] MEDS: methylPREDNISolone Sod Succ 40 MG/ML VIAL IVPUSH ×2 (05:41→17:07)
[2023-08-31 05:54] LABS: Hematocrit 34.9 % (42.0-52.0); Hemoglobin 11.1 g/dl (14.0-18.0); Mean Corpuscular HGB Conc 31.8 g/dl (31.0-36.0); Mean Corpuscular Hemoglobin 29.9 pg (27.0-33.0); Mean Corpuscular Volume 94.1 fL (80.0-98.0); Platelet Count 226 X10*3/uL (160-400); Red Blood Count 3.71 X10*6/uL (4.60-5.80); Red Cell Distribution Width 13.4 % (11.0-16.0); White Blood Count 11.4 X10*3/uL (4.8-10.8)
[2023-08-31 06:13] LABS: Anion Gap 14 (12-20); Blood Urea Nitrogen 33 mg/dL (9-16); Calcium 8.2 mg/dL (8.4-10.2); Carbon Dioxide 24 mmol/L (22-29); Chloride 108 mmol/L (96-108); Creatinine Clr Calc Pharmacy 64.1; Estimated Glomerular Filt Rate 57; Glucose Fasting 140 mg/dL (60-99); Magnesium 2.9 mg/dL (1.6-2.6); Potassium 4.5 mmol/L (3.3-5.1); Sodium 141 mmol/L (135-145)
[2023-08-31] MEDS: Albuterol/Iprat 2.5/0.5MG 3 ML AMPUL.NEB INHALE ×4 (07:41→18:59)
[2023-08-31] MEDS: Dronedarone HCl 400 MG TABLET PO ×2 (08:53→20:57)
[2023-08-31] MEDS: Furosemide 40 MG TABLET PO (08:53)
[2023-08-31] MEDS: Atorvastatin Calcium 80 MG TABLET PO (08:53)
[2023-08-31] MEDS: Apixaban 5 MG TABLET PO ×2 (08:53→20:57)
[2023-08-31] MEDS: Tamsulosin HCL 0.4 MG CAPSULE PO ×2 (08:53→20:57)
[2023-08-31] MEDS: buPROPion HCL 75 MG TABLET 150 MG PO ×2 (08:53→20:58)
[2023-08-31] MEDS: Theophylline Anhydrous ER 300 MG TAB.ER.12H PO (08:53)
[2023-08-31] MEDS: Doxycycline Monohydrate 100 MG CAPSULE PO ×2 (08:53→20:57)
[2023-08-31] MEDS: Roflumilast 500 MCG TABLET PO (08:53)
[2023-08-31] MEDS: Montelukast Sodium 10 MG TABLET PO (08:53)
--- NOTE | 2023-08-31 09:33 | MHC.CM.PN ---
IMM 08/30. Pt self-care, lives at home with his . Pt will arrange for his own transport at D/C. HCP on file and verified. PCP: Dr. Guilherme Mcallister
--- NOTE | 2023-08-31 09:50 | P.CONPL_ITS ---
History of Present Illness History of Present Illness Consult date: 08/31/23 Chief complaint: COPD / asthma Narrative: 68-year-old gentleman with underlying history of chronic lung disease ? COPD/asthma/ILD, followed by Dr. Head, with recent admission to [facility] for bronchopneumonia admitted on 08/30/2023 with dyspnea and empirically treated for COPD exacerbation. Patient does complain of paroxysmal nocturnal dyspnea and some orthopnea symptoms at home. He denies productive cough. Patient has received a dose of diuretic and states that his respiratory symptoms are better today. His last CT chest from December of 2023 does not demonstrate significant interstitial lung disease. Review of Systems 2 Constitutional: Constitutional: Denies daytime sleepiness, Denies excessive sweating, Denies fatigue, Denies fever(s), Denies lethargy, Denies malaise, Denies night sweats, Denies snoring and Denies weight loss Eyes: Eyes: Denies blurry vision and Denies itchy eyes ENT: Denies nasal congestion, Denies post nasal drip, Denies sinus pain, Denies sinus pressure and Denies other ( Thrush) Cardiovascular: Cardiovascular: Denies chest pain, Reports pedal edema, Denies dyspnea, Reports dyspnea on exertion, Denies orthopnea and Reports paroxysmal nocturnal dyspnea Respiratory: Respiratory: Denies cough, Denies hemoptysis, Denies excessive phlegm production, Denies dyspnea, Reports dyspnea on exertion, Denies snoring and Denies wheezing Gastrointestinal: Gastrointestinal: Denies abdominal pain and Denies heartburn Musculoskeletal: Musculoskeletal: Denies myalgias, Denies arthralgias and Denies joint swelling Integumentary/Breasts: Skin/Breast: Denies rash Neurologic: Denies memory loss and Denies seizure-like activity Psychiatric: Psychiatric: Denies abnormal sleep pattern, Denies anxiety and Denies memory loss Endocrine: Endocrine: Denies excessive sweating, Denies fatigue and Denies heat intolerance Hematologic/Lymphatic: Hematologic/Lymphatic: Denies easy bruising Allergic/Immunologic: Allergic/Immunologic: Denies itchy eyes, Denies seasonal rhinorrhea and Denies wheezing PMFSH Past Medical History Medical History COPD with acute exacerbation Chronic lung disease Tubular adenoma of colon (~2005) COPD (chronic obstructive pulmonary disease) Pulmonary nodules RAYMOND on CPAP Chronic rhinitis Asthma-COPD overlap syndrome PAF (paroxysmal atrial fibrillation) (~2017) Echocardiogram abnormal Encounter for screening for lung cancer Edema leg Venous insufficiency of both lower extremities AC (acromioclavicular) joint arthritis BPH (benign prostatic hyperplasia) Seasonal allergies Hyperlipidemia Family History Family History Father No problems noted. Mother CAD (coronary artery disease) CHF (congestive heart failure) HTN (hypertension) Brother No problems noted. Brother No problems noted. Sister No problems noted. Sister No problems noted. Sister No problems noted. Son No problems noted. Son No problems noted. Surgical History Surgical History History of appendectomy History of esophagogastroduodenoscopy (EGD) History of total left hip replacement (~2019) History of repair of right rotator cuff (~2017) History of nasal septoplasty (~2008) History of colonoscopy History of cataract (~2009) Social History Social History Household Members: Spouse, Family and Children Housing: House Do you presently have visiting nurse or other home services: No Alcohol intake: current Alcohol intake frequency: holidays/special occasions only Patient Tobacco Use Status: Former Tobacco user Quit Date: 13 years ago Tobacco use type: Cigarette Years Smoked: 40 years e-Cigarette/Vaping Use: Former Use Second Hand Smoke Exposure: No Advance Directives Date on File: 10/10/22 service: No Current occupational status: retired Cognitive needs: No Hearing needs: No Vision needs: No Meds Allergies Allergy/AdvReac Type Severity Reaction Status Date / Time watermelon [WATERMELON] Allergy Severe ANAPHYLAXIS Verified 08/30/23 13:51 Iodinated Contrast Media Allergy Intermediate LIGHT Verified 08/30/23 13:51 [IV CONTRAST] HEADED AND SHORTNESS OF BREATH Active Medications: Current Medications Albuterol/Ipratropium (Albuterol/Iprat 2.5/0.5mg 3 Ml Ampul.Neb) 3 ml INHALE RQ4H WHILE AWAKE [facility] Last Admin: 08/31/23 07:41 Dose: 3 ml Apixaban (Apixaban 5 Mg Tablet) 5 mg PO BID [facility] Last Admin: 08/31/23 08:53 Dose: 5 mg Atorvastatin Calcium (Atorvastatin Calcium 80 Mg Tablet) 80 mg PO DAILY [facility] Last Admin: 08/31/23 08:53 Dose: 80 mg Benzonatate (Benzonatate 100 Mg Capsule) 200 mg PO TID PRN PRN Reason: Cough Last Admin: 08/31/23 09:01 Dose: 200 mg Bupropion HCl (Bupropion Hcl 75 Mg Tablet) 150 mg PO BID [facility] Last Admin: 08/31/23 08:53 Dose: 150 mg Doxycycline Monohydrate (Doxycycline Monohydrate 100 Mg Capsule) 100 mg PO Q12H [facility] Last Admin: 08/31/23 08:53 Dose: 100 mg Dronedarone (Dronedarone Hcl 400 Mg Tablet) 400 mg PO BID [facility] Last Admin: 08/31/23 08:53 Dose: 400 mg Furosemide (Furosemide 40 Mg/4 Ml Vial) 40 mg IVPUSH BID@0900,1800 [facility]; Protocol Ceftriaxone Sodium 1 gm/ (Sodium Chloride) 50 mls @ 100 mls/hr IV Q24H [facility] Methylprednisolone Sodium Succinate (Methylprednisolone Sod Succ 40 Mg/Ml Vial) 40 mg IVPUSH Q12H [facility] Last Admin: 08/31/23 05:41 Dose: 40 mg Metoprolol Succinate (Metoprolol Succinate Er 100 Mg Tab.Er.24h) 100 mg PO BEDTIME [facility]; Protocol Last Admin: 08/30/23 21:42 Dose: 100 mg Montelukast Sodium (Montelukast Sodium 10 Mg Tablet) 10 mg PO DAILY [facility] Last Admin: 08/31/23 08:53 Dose: 10 mg Roflumilast (Roflumilast 500 Mcg Tablet) 500 mcg PO DAILY [facility] Last Admin: 08/31/23 08:53 Dose: 500 mcg Sodium Chloride (0.9 % Sodium Chloride Flush 3 Ml Syringe) 3 ml IVFLUSH QSHIFT [facility] Last Admin: 08/31/23 08:53 Dose: 3 ml Tamsulosin HCl (Tamsulosin Hcl 0.4 Mg Capsule) 0.4 mg PO BID [facility] Last Admin: 08/31/23 08:53 Dose: 0.4 mg Theophylline (Theophylline Anhydrous Er 300 Mg Tab.Er.12h) 300 mg PO Q48H [facility] Last Admin: 08/31/23 08:53 Dose: 300 mg Home Medications ?Medication ?Instructions ?Recorded ?Confirmed ?Last Taken ?Type albuterol sulfate 90 mcg/actuation 2 puff inhalation QID PRN 11/23/21 08/30/23 08/05/23 History aerosol inhaler Shortness Of Breath CPAP (CPAP Machine/Device) 02/15/22 12/27/22 08/05/23 History nebulizers 02/15/22 12/20/22 08/05/23 History tezepelumab-ekko 210 mg/1.91 mL 210 mg subcut Q4W 08/06/23 08/30/23 07/18/23 History (110 mg/mL) subcutaneous pen injector (Tezspire) furosemide 20 mg tablet 20 mg PO Q48H 08/30/23 08/30/23 Unknown History metoprolol succinate 100 mg 100 mg PO BEDTIME 08/30/23 08/30/23 Unknown History tablet,extended release 24 hr prednisone 10 mg tablet See Taper PO DAILY 08/30/23 08/30/23 08/30/23 History theophylline 300 mg 300 mg PO Q48H 08/30/23 08/30/23 Unknown History tablet,extended release,12 hr Physical Exam 2 Vital Signs: Vital Signs: Last Vital Signs Temp 99.3 F 08/31/23 07:56 Pulse 75 08/31/23 07:56 Resp 20 08/31/23 07:56 BP 127/85 08/31/23 07:56 Pulse Ox 95 08/31/23 07:56 O2 Del Method Room Air 08/31/23 07:56 Oxygen Flow Rate 2 08/30/23 13:49 BMI result Body Mass Index 30.7 Const: General: no acute distress and alert Nutritional Appearance: not obese Orientation/consciousness: Other orientation findings ( oriented) HEENT: Head: Yes atraumatic Eyes: General: appearance normal, both eyes and all related structures S clerae: sclerae normal EOM: EOMs intact bilaterally Neck: Neck: Yes supple Lymphatic: no lymphadenopathy noted Resp: Effort & Inspection: normal respiratory effort and no use of accessory muscles Auscultation: wheezes expiratory wheezes (Bilateral) Cardio: Rate: regular rate Rhythm: regular rhythm Heart sounds: no gallops, no murmurs and no rubs Skin: General skin exam: other ( warm) Extrem: General: No clubbing, No cyanosis and Yes edema (2+ bilateral) Results Laboratory Findings 08/31/23 05:43 08/31/23 05:43 Abnormal lab findings: Abnormal Labs 08/30/23 08/30/23 08/31/23 14:07 14:09 05:43 WBC 11.0 H 11.4 H RBC 3.96 L 3.71 L Hgb 11.8 L 11.1 L Hct 37.1 L 34.9 L Immature Gran % (Auto) 0.9 H Neut % (Auto) 86.1 H Lymph % (Auto) 6.4 L Lymph # (Auto) 0.7 L Abs Immat Gran (auto) 0.10 H Absolute Neuts (auto) 9.5 H VBG pH 7.46 H Chloride 110 H Anion Gap 9 L BUN 32 H 33 H Fasting Glucose 140 H Calcium 8.2 L D Magnesium 2.9 H Assessment and Plan (1) Acute exacerbation of chronic obstructive pulmonary disease: Status: Acute (2) Dyspnea: Status: Acute Plan Impression: 68-year-old gentleman with underlying chronic lung disease admitted with worsening dyspnea over several days and significant wheezing. Patient has been treated empirically for COPD exacerbation and diuretic with improvement in his symptoms. Patient does complain of significant paroxysmal nocturnal dyspnea and lower extremity edema. It is not clear whether his wheezing is from exacerbation of his COPD or cardiac in nature. Recommendations: Agree with empiric treatment for COPD exacerbation with systemic glucocorticoids, azithromycin, and nebulized bronchodilators. Consider empiric diuresis and obtaining 2D echocardiogram. Procedures Date of Service Date of Service: 08/31/23
--- NOTE | 2023-08-31 10:10 | HO.PM.IMPN ---
Subjective Subjective Date of Service: 08/31/23 Interval History: a bit better, still sob, coughing Physical Exam Vital Signs: Vital Signs: Last Vital Signs Temp 99.3 F 08/31/23 07:56 Pulse 75 08/31/23 07:56 Resp 20 08/31/23 07:56 BP 127/85 08/31/23 07:56 Pulse Ox 95 08/31/23 07:56 O2 Del Method Room Air 08/31/23 07:56 Oxygen Flow Rate 2 08/30/23 13:49 BMI result Body Mass Index 30.7 Const: General: no acute distress and alert Nutritional Appearance: not obese Orientation/consciousness: Other orientation findings ( oriented) HEENT: Head: Yes atraumatic Eyes: General: appearance normal, both eyes and all related structures Sclerae: sclerae normal EOM: EOMs intact bilaterally Neck: Neck: Yes supple Lymphatic: no lymphadenopathy noted Resp: Effort & Inspection: normal respiratory effort and no use of accessory muscles Auscultation: wheezes expiratory wheezes (Bilateral) Cardio: Rate: regular rate Rhythm: regular rhythm Heart sounds: no gallops, no murmurs and no rubs Skin: General skin exam: other ( warm) Extrem: General: No clubbing, No cyanosis and Yes edema (2+ bilateral) Objective Data Active Medications Albuterol/Ipratropium (Albuterol/Iprat 2.5/0.5mg 3 Ml Ampul.Neb) 3 ml INHALE RQ4H WHILE AWAKE [facility] Last Admin: 08/31/23 07:41 Dose: 3 ml Documented By: JEANE Apixaban (Apixaban 5 Mg Tablet) 5 mg PO BID [facility] Last Admin: 08/31/23 08:53 Dose: 5 mg Documented By: ALISA Atorvastatin Calcium (Atorvastatin Calcium 80 Mg Tablet) 80 mg PO DAILY [facility] Last Admin: 08/31/23 08:53 Dose: 80 mg Documented By: ALISA Benzonatate (Benzonatate 100 Mg Capsule) 200 mg PO TID PRN PRN Reason: Cough Last Admin: 08/31/23 09:01 Dose: 200 mg Documented By: ALISA Comments: approved early dose Bupropion HCl (Bupropion Hcl 75 Mg Tablet) 150 mg PO BID [facility] Last Admin: 08/31/23 08:53 Dose: 150 mg Documented By: ALISA Doxycycline Monohydrate (Doxycycline Monohydrate 100 Mg Capsule) 100 mg PO Q12H [facility] Last Admin: 08/31/23 08:53 Dose: 100 mg Documented By: ALISA Dronedarone (Dronedarone Hcl 400 Mg Tablet) 400 mg PO BID [facility] Last Admin: 08/31/23 08:53 Dose: 400 mg Documented By: ALISA Furosemide (Furosemide 40 Mg/4 Ml Vial) 40 mg IVPUSH BID@0900,1800 [facility]; Protocol Ceftriaxone Sodium 1 gm/ (Sodium Chloride) 50 mls @ 100 mls/hr IV Q24H [facility] Methylprednisolone Sodium Succinate (Methylprednisolone Sod Succ 40 Mg/Ml Vial) 40 mg IVPUSH Q12H [facility] Last Admin: 08/31/23 05:41 Dose: 40 mg Documented By: ANTBERNARD Metoprolol Succinate (Metoprolol Succinate Er 100 Mg Tab.Er.24h) 100 mg PO BEDTIME [facility]; Protocol Last Admin: 08/30/23 21:42 Dose: 100 mg Documented By: DAVIS Montelukast Sodium (Montelukast Sodium 10 Mg Tablet) 10 mg PO DAILY [facility] Last Admin: 08/31/23 08:53 Dose: 10 mg Documented By: ALISA Roflumilast (Roflumilast 500 Mcg Tablet) 500 mcg PO DAILY [facility] Last Admin: 08/31/23 08:53 Dose: 500 mcg Documented By: ALISA Sodium Chloride (0.9 % Sodium Chloride Flush 3 Ml Syringe) 3 ml IVFLUSH QSHIFT [facility] Last Admin: 08/31/23 08:53 Dose: 3 ml Documented By: ALISA Tamsulosin HCl (Tamsulosin Hcl 0.4 Mg Capsule) 0.4 mg PO BID [facility] Last Admin: 08/31/23 08:53 Dose: 0.4 mg Documented By: ALISA Theophylline (Theophylline Anhydrous Er 300 Mg Tab.Er.12h) 300 mg PO Q48H [facility] Last Admin: 08/31/23 08:53 Dose: 300 mg Documented By: ALISA Labs 08/31/23 05:43 08/31/23 05:43 Labs: Laboratory Results - last 24 hr 08/30/23 08/30/23 08/31/23 14:07 14:09 05:43 MCV 93.7 94.1 MCH 29.8 29.9 MCHC 31.8 31.8 RDW 13.5 13.4 Plt Count 250 D 226 MPV 10.1 10.0 Immature Gran % (Auto) 0.9 H Neut % (Auto) 86.1 H Lymph % (Auto) 6.4 L [place] % (Auto) 6.3 Eos % (Auto) 0.2 Baso % (Auto) 0.1 Lymph # (Auto) 0.7 L [place] # (Auto) 0.7 Eos # (Auto) 0.0 Baso # (Auto) 0.0 Abs Immat Gran (auto) 0.10 H Absolute Neuts (auto) 9.5 H Absolute Nucleated RBC 0.000 0.000 Nucleated RBC % (auto) 0.0 0.0 Smear Tech's Comments VERIFIED VBG pH 7.46 H VBG pCO2 36 VBG pO2 112 VBG HCO3 25 VBG O2 Saturation 99.0 VBG Base Excess 2.2 Anion Gap 9 L 14 Estim Creat Clear Calc 67.9 64.1 Estimated GFR > 60 57 Random Glucose 110 Fasting Glucose 140 H Calcium 9.4 8.2 L D Magnesium 2.9 H Troponin I High Sens 7.8 D B-Natriuretic Peptide 81 Influenza Type A (PCR) NEGATIVE Influenza Type B (PCR) NEGATIVE RSV RNA Qual (PCR) NEGATIVE SARS-CoV-2 RNA (RT-PCR) NEGATIVE Assessment and Plan (1) COPD with acute exacerbation: Status: Inactive Plan 68M PMH pafib, copd/moderate persistent asthma, ild, mood disorder, bph, RAYMOND presented with shortness of breath COPD/moderate persistent asthma/ILD with acute decompensation continue IV steroids, bronchodilators, ceftriaxone and doxycycline, pulmonary appreciated - additional component of acute on chronic unspecied chf suspected follow up echo, start iv lasix Paroxysmal atrial fibrillation Metoprolol, Multaq, apixaban BPH Flomax RAYMOND CPAP at night DVT prophylaxis-on Eliquis Full code reason for continued hospitalization:iv diuresis Quality Stroke Does the patient have a stroke diagnosis?: No VTE Prior VTE?: No VTE Risk Level:: Medical - moderate - high VTE Device Contraindication: Treatment Not Indicated VTE Drug Contraindication: N/A - Med Ordered
[2023-08-31] MEDS: Furosemide 40 MG/4 ML VIAL IVPUSH (17:08)
[2023-08-31] MEDS: cefTRIAXone sodium 1 GM in 0.9 % Sodium Chloride 50 ML IV (17:14)
[2023-08-31] MEDS: Metoprolol Succinate ER 100 MG TAB.ER.24H PO (20:58)
--- NOTE | 2023-08-31 21:13 | HE.PHANOTE ---
RE PT OWN ARFORMOTEROL: PHARMACY VERIFIED 2 PACKAGES OF PATIENT OWN ARFORMOTEROL WITH 4 VIALS IN EACH CONTAINER. PT SHOULD HAVE DOSES FOR 413 PM THROUGH 09/03 AM DOSE.
[2023-09-01] VITALS (10 sets, daily range): BP systolic 130–168; BP diastolic 62–74; PULSE 51–76; RESP 18–20; TEMP 36.6–37.3; O2SAT 91–96
[2023-09-01] MEDS: methylPREDNISolone Sod Succ 40 MG/ML VIAL IVPUSH ×2 (04:41→17:01)
[2023-09-01 07:55] LABS: Anion Gap 14 (12-20); Blood Urea Nitrogen 44 mg/dL (9-16); Calcium 8.7 mg/dL (8.4-10.2); Carbon Dioxide 27 mmol/L (22-29); Chloride 105 mmol/L (96-108); Creatinine Clr Calc Pharmacy 52.3; Estimated Glomerular Filt Rate 45; Glucose Fasting 111 mg/dL (60-99); Magnesium 2.6 mg/dL (1.6-2.6); Potassium 4.8 mmol/L (3.3-5.1); Sodium 141 mmol/L (135-145)
[2023-09-01 07:59] LABS: Hematocrit 35.3 % (42.0-52.0); Hemoglobin 11.3 g/dl (14.0-18.0); Mean Corpuscular Hemoglobin 30.2 pg (27.0-33.0); Mean Corpuscular Volume 94.4 fL (80.0-98.0); Mean Platelet Volume 10.5 fL (9.4-12.4); Platelet Count 270 X10*3/uL (160-400); Red Blood Count 3.74 X10*6/uL (4.60-5.80); Red Cell Distribution Width 13.3 % (11.0-16.0)
[2023-09-01] MEDS: Albuterol/Iprat 2.5/0.5MG 3 ML AMPUL.NEB INHALE ×4 (08:36→18:49)
[2023-09-01] MEDS: Montelukast Sodium 10 MG TABLET PO (08:59)
[2023-09-01] MEDS: Roflumilast 500 MCG TABLET PO (08:59)
[2023-09-01] MEDS: Tamsulosin HCL 0.4 MG CAPSULE PO ×2 (08:59→20:27)
[2023-09-01] MEDS: Doxycycline Monohydrate 100 MG CAPSULE PO ×2 (08:59→20:27)
[2023-09-01] MEDS: Dronedarone HCl 400 MG TABLET PO ×2 (08:59→20:27)
[2023-09-01] MEDS: Atorvastatin Calcium 80 MG TABLET PO (08:59)
[2023-09-01] MEDS: Apixaban 5 MG TABLET PO ×2 (08:59→20:27)
[2023-09-01] MEDS: buPROPion HCL 75 MG TABLET 150 MG PO ×2 (08:59→20:26)
[2023-09-01] MEDS: 0.9 % Sodium Chloride Flush 3 ML SYRINGE IVFLUSH ×3 (08:59→23:05)
--- NOTE | 2023-09-01 08:59 | P.PNIM_ITS ---
Subjective Subjective Date of Service: 09/01/23 Interval History: more sob today Physical Exam 2 Vital Signs: Vital Signs: Last Vital Signs Temp 99.1 F 09/01/23 07:38 Pulse 63 09/01/23 08:37 Resp 20 09/01/23 08:37 BP 168/74 H 09/01/23 07:38 Pulse Ox 95 09/01/23 07:38 O2 Del Method Room Air 09/01/23 07:38 Oxygen Flow Rate 2 08/30/23 13:49 BMI result Body Mass Index 30.7 Const: General: no acute distress and alert Nutritional Appearance: not obese Orientation/consciousness: Other orientation findings ( oriented) HEENT: Head: Yes atraumatic Eyes: General: appearance normal, both eyes and all related structures S clerae: sclerae normal EOM: EOMs intact bilaterally Neck: Neck: Yes supple Lymphatic: no lymphadenopathy noted Resp: Effort & Inspection: normal respiratory effort and no use of accessory muscles Auscultation: wheezes expiratory wheezes (Bilateral) Cardio: Rate: regular rate Rhythm: regular rhythm Heart sounds: no gallops, no murmurs and no rubs Skin: General skin exam: other ( warm) Extrem: General: No clubbing, No cyanosis and Yes edema (2+ bilateral) Objective Data Active Medications Albuterol/Ipratropium (Albuterol/Iprat 2.5/0.5mg 3 Ml Ampul.Neb) 3 ml INHALE RQ4H WHILE AWAKE [facility] Last Admin: 09/01/23 08:36 Dose: 3 ml Documented By: PATRICIA Apixaban (Apixaban 5 Mg Tablet) 5 mg PO BID [facility] Last Admin: 08/31/23 20:57 Dose: 5 mg Documented By: RADHA Atorvastatin Calcium (Atorvastatin Calcium 80 Mg Tablet) 80 mg PO DAILY [facility] Last Admin: 08/31/23 08:53 Dose: 80 mg Documented By: ALISA Benzonatate (Benzonatate 100 Mg Capsule) 200 mg PO TID PRN PRN Reason: Cough Last Admin: 08/31/23 20:57 Dose: 200 mg Documented By: RADHA Bupropion HCl (Bupropion Hcl 75 Mg Tablet) 150 mg PO BID [facility] Last Admin: 08/31/23 20:58 Dose: 150 mg Documented By: RADHA Doxycycline Monohydrate (Doxycycline Monohydrate 100 Mg Capsule) 100 mg PO Q12H [facility] Last Admin: 08/31/23 20:57 Dose: 100 mg Documented By: RADHA Dronedarone (Dronedarone Hcl 400 Mg Tablet) 400 mg PO BID [facility] Last Admin: 08/31/23 20:57 Dose: 400 mg Documented By: RADHA Furosemide (Furosemide 40 Mg/4 Ml Vial) 40 mg IVPUSH BID@0900,1800 [facility]; Protocol Last Admin: 08/31/23 17:08 Dose: 40 mg Documented By: ALISA Ceftriaxone Sodium 1 gm/ (Sodium Chloride) 50 mls @ 100 mls/hr IV Q24H [facility] Last Infusion: 08/31/23 18:00 Dose: Infused Documented By: ALISA Methylprednisolone Sodium Succinate (Methylprednisolone Sod Succ 40 Mg/Ml Vial) 40 mg IVPUSH Q12H [facility] Last Admin: 09/01/23 04:41 Dose: 40 mg Documented By: RADHA Metoprolol Succinate (Metoprolol Succinate Er 100 Mg Tab.Er.24h) 100 mg PO BEDTIME [facility]; Protocol Last Admin: 08/31/23 20:58 Dose: 100 mg Documented By: RADHA Montelukast Sodium (Montelukast Sodium 10 Mg Tablet) 10 mg PO DAILY [facility] Last Admin: 08/31/23 08:53 Dose: 10 mg Documented By: ALISA Roflumilast (Roflumilast 500 Mcg Tablet) 500 mcg PO DAILY [facility] Last Admin: 08/31/23 08:53 Dose: 500 mcg Documented By: ALISA Sodium Chloride (0.9 % Sodium Chloride Flush 3 Ml Syringe) 3 ml IVFLUSH QSHIFT [facility] Last Admin: 08/31/23 20:58 Dose: 3 ml Documented By: RADHA Tamsulosin HCl (Tamsulosin Hcl 0.4 Mg Capsule) 0.4 mg PO BID [facility] Last Admin: 08/31/23 20:57 Dose: 0.4 mg Documented By: RADHA Theophylline (Theophylline Anhydrous Er 300 Mg Tab.Er.12h) 300 mg PO Q48H [facility] Last Admin: 08/31/23 08:53 Dose: 300 mg Documented By: ALISA Labs 09/01/23 06:42 09/01/23 06:42 Labs: Laboratory Results - last 24 hr 09/01/23 06:42 MCV 94.4 MCH 30.2 MCHC 32.0 RDW 13.3 Plt Count 270 MPV 10.5 Absolute Nucleated RBC 0.000 Nucleated RBC % (auto) 0.0 Anion Gap 14 Estim Creat Clear Calc 52.3 Estimated GFR 45 Fasting Glucose 111 H Calcium 8.7 D Magnesium 2.6 Assessment and Plan (1) COPD with acute exacerbation: Status: Inactive Plan 68M PMH pafib, copd/moderate persistent asthma, ild, mood disorder, bph, RAYMOND presented with shortness of breath COPD/moderate persistent asthma/ILD with acute decompensation worsening sob today continue IV steroids, bronchodilators, ceftriaxone and doxycycline pulmonary appreciated - additional component of acute on chronic unspecied chf suspected follow up echo, started iv lasix Paroxysmal atrial fibrillation Metoprolol, Multaq, apixaban BPH Flomax RAYMOND CPAP at night DVT prophylaxis-on Eliquis Full code reason for continued hospitalization:iv diuresis Quality Stroke Does the patient have a stroke diagnosis?: No VTE Prior VTE?: No VTE Risk Level:: Medical - moderate - high VTE Device Contraindication: Treatment Not Indicated VTE Drug Contraindication: N/A - Med Ordered
[2023-09-01] MEDS: Furosemide 40 MG/4 ML VIAL IVPUSH ×2 (09:01→17:01)
[2023-09-01] MEDS: Benzonatate 100 MG CAPSULE 200 MG PO ×2 (09:01→17:00)
[2023-09-01] MEDS: cefTRIAXone sodium 1 GM in 0.9 % Sodium Chloride 50 ML IV (17:00)
[2023-09-01] MEDS: Metoprolol Succinate ER 100 MG TAB.ER.24H PO (20:27)
[2023-09-01] MEDS: Acetaminophen 325 MG TABLET 650 MG PO (20:27)
[2023-09-01] MEDS: Melatonin 3 MG TABLET 6 MG PO (23:05)
[2023-09-02] VITALS (11 sets, daily range): BP systolic 131–151; BP diastolic 63–85; PULSE 56–80; RESP 18–20; TEMP 36.4–37.1; O2SAT 92–98
[2023-09-02] MEDS: methylPREDNISolone Sod Succ 40 MG/ML VIAL IVPUSH ×2 (05:33→17:36)
[2023-09-02 07:00] LABS: Hematocrit 35.9 % (42.0-52.0); Hemoglobin 11.6 g/dl (14.0-18.0); Mean Corpuscular HGB Conc 32.3 g/dl (31.0-36.0); Mean Corpuscular Hemoglobin 29.8 pg (27.0-33.0); Mean Corpuscular Volume 92.3 fL (80.0-98.0); Mean Platelet Volume 10.2 fL (9.4-12.4); Platelet Count 298 X10*3/uL (160-400); Red Blood Count 3.89 X10*6/uL (4.60-5.80); Red Cell Distribution Width 13.2 % (11.0-16.0)
--- NOTE | 2023-09-02 07:00 | CA_ITS ---
Transthoracic Echocardiogram Patient (Last, First, Middle): Kiran Dela Cruz E Gender: Male Date of : 1955 Age: 68 Procedure Date: 09/02/2023 Procedure Type: Transthoracic Echocardiogram [place] [facility] [place] Height: 175.26 cm Weight: 94.35 kg BSA: 2.10 m2 Heart Rate: bpm BP: 131 / 85 mmHg Ski Production Supervisor: FLAVIO Referring MD: Jean-Claude Borges MD Symptoms: ?chf vs pulm htn Study Quality: Adequate ECG Rhythm: Sinus Conclusions: - The left ventricular systolic function is normal. The calculated ejection fraction is 65% by biplane method. - There is mild aortic valve stenosis. Findings Left Ventricle Normal left ventricular cavity size. The left ventricular systolic function is normal. The calculated ejection fraction is 65% by biplane method. There is no evidence of regional wall motion abnormalities. Diastolic function is indeterminate on the basis of available data. There is mild septal asymmetric hypertrophy. LV peak GLS -19.9%. Right Ventricle Normal right ventricular cavity size and systolic function. Atria Both atria are normal in size. Aortic Valve There is mild calcification of the aortic valve. There is mild aortic valve stenosis. There is no aortic valve regurgitation. Mitral Valve There is mild anterior mitral leaflet thickening. There is mild mitral annular calcification. There is trace mitral valve regurgitation. There is no mitral valve stenosis. Pulmonic Valve The pulmonic valve is likely normal. Tricuspid Valve There is trace tricuspid valve regurgitation. There is no evidence of pulmonary hypertension. Great Vessels The asc aorta is normal in size. Venous The inferior vena cava is mildly dilated and collapses greater than 50% with inspiration. Pericardium/Pleural There is no evidence of pericardial effusion. Prior Study Comparison Changes noted compared to prior study dated: 10/16/2018. Mild aortic stenosis seen. Measurements 2D Linear Measurements IVSd: 1.03 0.6-0.9/0.6-1.0 cm LVIDd: 5.62 3.9-5.3/4.2-5.9 cm LVIDd Index: 2.68 2.4-3.2/2.2-3.1 cm/m2 LVIDs: 3.21 2.0-3.6 cm LVPWd: 0.87 0.7-1.1 cm LA Diam: 4.10 2.7-3.8/3.0-4.0 cm LAIDs Index: 1.95 1.5-2.3 cm/m2 LV Mass: 257.49 67-162/88-224 g LV Mass Index: 122.61 43-95/49-115 g/m2 LVOT Diam: 1.90 3.0+(-)1.3 cm 2D Systolic Function EF 4C: 65.90 >55% EF 2C: 61.50 >55% EF BiP: 64.70 >55% Mitral Valve MV Pk E: 1.39 MV PK A: 1.03 MV Decel Time: 182.00 E/A: 1.30 E'Lateral: 8.92 E'Medial: 6.85 E/E' Med: 20.30 E/E' Lat: 15.60 PHT: 53.00 MVA PHT: 4.15 Decel [place]: 7.65 Aortic Valve AoV Pk Esdras: 2.35 AoV Mn Esdras: 1.58 AoV VTI: 0.54 AoV Pk Grad: 22.00 Aov Mn Grad: 12.00 NALINI Cont.VTI: 1.73 LVOT LVOT Pk Esdras: 1.56 LVOT Mn Esdras: 1.03 LVOT VTI: 0.33 LVOT Pk Grad: 10.00 LVOT Mn Grad: 5.00 LVOT Diam: 1.90 LVOT Area: 2.84 Diastolic Function MV Pk E: 1.39 MV Pk A: 1.03 E/A: 1.30 E'Medial: 6.85 E/E' Med: 20.30 E' Laterial: 8.92 E/E' Lat: 15.60 Right Ventricle TAPSE (mm): 25.90 TVS' Esdras: 14.80 Tricuspid Valve TR Pk Esdras: 2.32 TR Pk Grad: 22.00 RA Press: 8.00 RVSP: 30.00 Great Vessels Aorta Sinus of Valsalva: 3.40 2.0-3.5 cm Ao Asc: 3.20 2.1-3.4 cm Pulmonary Valve PV Pk Esdras: 1.29 Peak PV Grad: 7.00 Updated in Other Vendor System with Status of Final Wyatt Ross MD electronically signed on 09/02/2023 12:41:04 PM with status of Final
[2023-09-02 07:19] LABS: Anion Gap 12 (12-20); Blood Urea Nitrogen 53 mg/dL (9-16); Calcium 8.7 mg/dL (8.4-10.2); Carbon Dioxide 28 mmol/L (22-29); Chloride 102 mmol/L (96-108); Creatinine Clr Calc Pharmacy 49.1; Estimated Glomerular Filt Rate 42; Glucose Fasting 119 mg/dL (60-99); Magnesium 2.3 mg/dL (1.6-2.6); Potassium 4.8 mmol/L (3.3-5.1); Sodium 137 mmol/L (135-145)
[2023-09-02] MEDS: Albuterol/Iprat 2.5/0.5MG 3 ML AMPUL.NEB INHALE ×4 (07:30→18:48)
[2023-09-02] MEDS: buPROPion HCL 75 MG TABLET 150 MG PO ×2 (09:07→21:37)
[2023-09-02] MEDS: Doxycycline Monohydrate 100 MG CAPSULE PO ×2 (09:07→21:44)
[2023-09-02] MEDS: Apixaban 5 MG TABLET PO ×2 (09:07→21:44)
[2023-09-02] MEDS: Theophylline Anhydrous ER 300 MG TAB.ER.12H PO (09:07)
[2023-09-02] MEDS: Tamsulosin HCL 0.4 MG CAPSULE PO ×2 (09:07→21:43)
[2023-09-02] MEDS: Atorvastatin Calcium 80 MG TABLET PO (09:07)
[2023-09-02] MEDS: Dronedarone HCl 400 MG TABLET PO ×2 (09:07→21:44)
[2023-09-02] MEDS: Roflumilast 500 MCG TABLET PO (09:08)
[2023-09-02] MEDS: Montelukast Sodium 10 MG TABLET PO (09:08)
[2023-09-02] MEDS: Benzonatate 100 MG CAPSULE 200 MG PO ×3 (09:09→21:42)
[2023-09-02] MEDS: 0.9 % Sodium Chloride Flush 3 ML SYRINGE IVFLUSH ×3 (09:09→23:19)
--- NOTE | 2023-09-02 10:07 | P.PNIM_ITS ---
Subjective Subjective Date of Service: 09/02/23 Interval History: still sob Physical Exam 2 Vital Signs: Vital Signs: Last Vital Signs Temp 97.6 F 09/02/23 07:37 Pulse 56 09/02/23 07:37 Resp 18 09/02/23 07:37 BP 131/85 09/02/23 07:37 Pulse Ox 96 09/02/23 07:37 O2 Del Method Room Air 09/02/23 07:37 Oxygen Flow Rate 2 08/30/23 13:49 BMI result Body Mass Index 30.7 Const: General: no acute distress and alert Nutritional Appearance: not obese Orientation/consciousness: Other orientation findings ( oriented) HEENT: Head: Yes atraumatic Eyes: General: appearance normal, both eyes and all related structures S clerae: sclerae normal EOM: EOMs intact bilaterally Neck: Neck: Yes supple Lymphatic: no lymphadenopathy noted Resp: Effort & Inspection: normal respiratory effort and no use of accessory muscles Auscultation: wheezes expiratory wheezes (Bilateral) Cardio: Rate: regular rate Rhythm: regular rhythm Heart sounds: no gallops, no murmurs and no rubs Skin: General skin exam: other ( warm) Extrem: General: No clubbing, No cyanosis and Yes edema (2+ bilateral) Objective Data Active Medications Acetaminophen (Acetaminophen 325 Mg Tablet) 650 mg PO Q6H PRN PRN Reason: Pain, Mild (Pain Scale 1-3) Last Admin: 09/01/23 20:27 Dose: 650 mg Documented By: MEGAN Albuterol/Ipratropium (Albuterol/Iprat 2.5/0.5mg 3 Ml Ampul.Neb) 3 ml INHALE RQ4H WHILE AWAKE [facility] Last Admin: 09/02/23 07:30 Dose: 3 ml Documented By: PADMINI Apixaban (Apixaban 5 Mg Tablet) 5 mg PO BID [facility] Last Admin: 09/02/23 09:07 Dose: 5 mg Documented By: ARUNA Atorvastatin Calcium (Atorvastatin Calcium 80 Mg Tablet) 80 mg PO DAILY [facility] Last Admin: 09/02/23 09:07 Dose: 80 mg Documented By: ARUNA Benzonatate (Benzonatate 100 Mg Capsule) 200 mg PO TID PRN PRN Reason: Cough Last Admin: 09/02/23 09:09 Dose: 200 mg Documented By: ARUNA Bupropion HCl (Bupropion Hcl 75 Mg Tablet) 150 mg PO BID [facility] Last Admin: 09/02/23 09:07 Dose: 150 mg Documented By: ARUNA Doxycycline Monohydrate (Doxycycline Monohydrate 100 Mg Capsule) 100 mg PO Q12H [facility] Last Admin: 09/02/23 09:07 Dose: 100 mg Documented By: ARUNA Dronedarone (Dronedarone Hcl 400 Mg Tablet) 400 mg PO BID [facility] Last Admin: 09/02/23 09:07 Dose: 400 mg Documented By: ARUNA Furosemide (Furosemide 40 Mg/4 Ml Vial) 40 mg IVPUSH BID@0900,1800 [facility]; Protocol Last Admin: 09/02/23 08:16 Dose: Not Given Documented By: ARUNA Non-Admin Reason: hold dose per md order Ceftriaxone Sodium 1 gm/ (Sodium Chloride) 50 mls @ 100 mls/hr IV Q24H [facility] Last Infusion: 09/01/23 17:38 Dose: Infused Documented By: ALISA Melatonin (Melatonin 3 Mg Tablet) 6 mg PO BEDTIME PRN PRN Reason: Insomnia Last Admin: 09/01/23 23:05 Dose: 6 mg Documented By: MEGAN Methylprednisolone Sodium Succinate (Methylprednisolone Sod Succ 40 Mg/Ml Vial) 40 mg IVPUSH Q12H [facility] Last Admin: 09/02/23 05:33 Dose: 40 mg Documented By: MEGAN Metoprolol Succinate (Metoprolol Succinate Er 100 Mg Tab.Er.24h) 100 mg PO BEDTIME [facility]; Protocol Last Admin: 09/01/23 20:27 Dose: 100 mg Documented By: MEGAN Montelukast Sodium (Montelukast Sodium 10 Mg Tablet) 10 mg PO DAILY [facility] Last Admin: 09/02/23 09:08 Dose: 10 mg Documented By: ARUNA Non-Formulary Medication (Arformoterol) 15 mg INHALE RBID [facility] Last Admin: 09/02/23 07:57 Dose: 15 mg Documented By: PADMINI Roflumilast (Roflumilast 500 Mcg Tablet) 500 mcg PO DAILY [facility] Last Admin: 09/02/23 09:08 Dose: 500 mcg Documented By: ARUNA Sodium Chloride (0.9 % Sodium Chloride Flush 3 Ml Syringe) 3 ml IVFLUSH QSHIFT [facility] Last Admin: 09/02/23 09:09 Dose: 3 ml Documented By: ARUNA Tamsulosin HCl (Tamsulosin Hcl 0.4 Mg Capsule) 0.4 mg PO BID [facility] Last Admin: 09/02/23 09:07 Dose: 0.4 mg Documented By: ARUNA Theophylline (Theophylline Anhydrous Er 300 Mg Tab.Er.12h) 300 mg PO Q48H [facility] Last Admin: 09/02/23 09:07 Dose: 300 mg Documented By: ARUNA Labs 09/02/23 06:26 09/02/23 06:26 Labs: Laboratory Results - last 24 hr 09/02/23 06:26 MCV 92.3 MCH 29.8 MCHC 32.3 RDW 13.2 Plt Count 298 MPV 10.2 Absolute Nucleated RBC 0.000 Nucleated RBC % (auto) 0.0 Anion Gap 12 Estim Creat Clear Calc 49.1 Estimated GFR 42 Fasting Glucose 119 H Calcium 8.7 Magnesium 2.3 Assessment and Plan (1) COPD with acute exacerbation: Status: Inactive Plan 68M PMH pafib, copd/moderate persistent asthma, ild, mood disorder, bph, RAYMOND presented with shortness of breath COPD/moderate persistent asthma/ILD with acute decompensation sob a bit better, but still very wheezy continue IV steroids, bronchodilators, ceftriaxone and doxycycline pulmonary appreciated - additional component of acute on chronic unspecied chf suspected follow up echo, creatinine trending up, will hold lasix Paroxysmal atrial fibrillation Metoprolol, Multaq, apixaban BPH Flomax RAYMOND CPAP at night DVT prophylaxis-on Eliquis Full code reason for continued hospitalization:sob, wheezing Quality Stroke Does the patient have a stroke diagnosis?: No VTE Prior VTE?: No VTE Risk Level:: Medical - moderate - high VTE Device Contraindication: Treatment Not Indicated VTE Drug Contraindication: N/A - Med Ordered
--- NOTE | 2023-09-02 10:51 | P.PNPL_ITS ---
Subjective Subjective Date of Service: 09/02/23 Interval history: Respiratory status improved significantly. Wheezing resolved. Objective Data Labs 09/02/23 06:26 09/02/23 06:26 Labs: Laboratory Results - last 24 hr 09/02/23 06:26 WBC 13.0 H RBC 3.89 L Hgb 11.6 L Hct 35.9 L MCV 92.3 MCH 29.8 MCHC 32.3 RDW 13.2 Plt Count 298 MPV 10.2 Absolute Nucleated RBC 0.000 Nucleated RBC % (auto) 0.0 Sodium 137 Potassium 4.8 Chloride 102 Carbon Dioxide 28 Anion Gap 12 BUN 53 H Creatinine 1.63 H Estim Creat Clear Calc 49.1 Estimated GFR 42 Fasting Glucose 119 H Calcium 8.7 Magnesium 2.3 Physical Exam 2 Vital Signs: Vital Signs: Last Vital Signs Temp 97.6 F 09/02/23 07:37 Pulse 56 09/02/23 07:37 Resp 18 09/02/23 07:37 BP 131/85 09/02/23 07:37 Pulse Ox 96 09/02/23 07:37 O2 Del Method Room Air 09/02/23 07:37 Oxygen Flow Rate 2 08/30/23 13:49 BMI result Body Mass Index 30.7 Const: General: no acute distress, alert and awake Eyes: Sclerae: sclerae normal EOM: EOMs intact bilaterally Neck: Neck: Yes no lymphadenopathy, Yes trachea midline and Yes supple Resp: Effort & Inspection: normal respiratory effort and no respiratory distress Auscultation: clear to auscultation bilaterally Cardio: Rate: regular rate Rhythm: regular rhythm Heart sounds: no gallops, no murmurs and no rubs GI: Palpation (GI): Soft to palpation and Other GI palpation findings present ( Nontender) Auscultation: normal bowel sounds Extrem: General: No clubbing, No cyanosis and Yes edema (Trace bilateral) Procedures Date of Service Date of Service: 09/02/23 Assessment and Plan Assessment and plan (1) Dyspnea: Status: Acute (2) Acute exacerbation of chronic obstructive pulmonary disease: Status: Acute Plan Impression: 68-year-old gentleman with underlying chronic lung disease admitted with worsening dyspnea over several days and significant wheezing. Patient has been treated empirically for COPD exacerbation and diuretic with significant improvement in his symptoms, now essentially at baseline. His 2D echocardiogram is pending. Recommendations: Agree with empiric treatment for COPD exacerbation with systemic glucocorticoids, azithromycin, and nebulized bronchodilators. Consider decreasing diuretic dose. Time Spent With Patient Time: Total time managing care of this patient today ____ minutes. Progress Note: Quality Stroke Does the patient have a stroke diagnosis?: No
[2023-09-02] MEDS: cefTRIAXone sodium 1 GM in 0.9 % Sodium Chloride 50 ML IV (17:36)
[2023-09-02] MEDS: Metoprolol Succinate ER 100 MG TAB.ER.24H PO (21:44)
[2023-09-02] MEDS: Melatonin 3 MG TABLET 6 MG PO (23:15)
[2023-09-02] MEDS: Albuterol Sulfate (0.083%) 2.5 MG/3 ML VIAL.NEB INHALE (23:20)
[2023-09-03] VITALS (11 sets, daily range): BP systolic 140–183; BP diastolic 62–81; PULSE 64–79; RESP 12–20; TEMP 36.4–37.3; O2SAT 92–96
[2023-09-03] MEDS: methylPREDNISolone Sod Succ 40 MG/ML VIAL IVPUSH ×2 (04:17→16:50)
[2023-09-03] MEDS: Albuterol/Iprat 2.5/0.5MG 3 ML AMPUL.NEB INHALE ×4 (07:30→19:19)
[2023-09-03] MEDS: Montelukast Sodium 10 MG TABLET PO (08:21)
[2023-09-03] MEDS: Doxycycline Monohydrate 100 MG CAPSULE PO ×2 (08:21→20:52)
[2023-09-03] MEDS: Roflumilast 500 MCG TABLET PO (08:21)
[2023-09-03] MEDS: buPROPion HCL 75 MG TABLET 150 MG PO ×2 (08:21→20:52)
[2023-09-03] MEDS: Apixaban 5 MG TABLET PO ×2 (08:21→20:52)
[2023-09-03] MEDS: Atorvastatin Calcium 80 MG TABLET PO (08:21)
[2023-09-03] MEDS: Dronedarone HCl 400 MG TABLET PO ×2 (08:21→20:52)
[2023-09-03] MEDS: Acetaminophen 325 MG TABLET 650 MG PO (08:22)
[2023-09-03] MEDS: Tamsulosin HCL 0.4 MG CAPSULE PO ×2 (08:22→20:52)
[2023-09-03] MEDS: Benzonatate 100 MG CAPSULE 200 MG PO ×3 (08:22→20:52)
[2023-09-03] MEDS: 0.9 % Sodium Chloride Flush 3 ML SYRINGE IVFLUSH ×3 (08:23→20:53)
[2023-09-03] MEDS: Furosemide 40 MG/4 ML VIAL IVPUSH (09:41)
--- NOTE | 2023-09-03 10:16 | P.PNIM_ITS ---
Subjective Subjective Date of Service: 09/03/23 Interval History: still sob Physical Exam 2 Vital Signs: Vital Signs: Last Vital Signs Temp 97.6 F 09/03/23 07:20 Pulse 67 09/03/23 07:31 Resp 20 09/03/23 07:31 BP 140/62 H 09/03/23 07:20 Pulse Ox 92 09/03/23 07:20 O2 Del Method Room Air 09/03/23 07:20 Oxygen Flow Rate 2 08/30/23 13:49 BMI result Body Mass Index 30.7 Const: General: no acute distress, alert and awake Eyes: Sclerae: sclerae normal EOM: EOMs intact bilaterally Neck: Neck: Yes no lymphadenopathy, Yes trachea midline and Yes supple Resp: Effort & Inspection: normal respiratory effort and no respiratory distress Auscultation: clear to auscultation bilaterally Cardio: Rate: regular rate Rhythm: regular rhythm Heart sounds: no gallops, no murmurs and no rubs GI: Palpation (GI): Soft to palpation and Other GI palpation findings present ( Nontender) Auscultation: normal bowel sounds Extrem: General: No clubbing, No cyanosis and Yes edema (Trace bilateral) Objective Data Active Medications Acetaminophen (Acetaminophen 325 Mg Tablet) 650 mg PO Q6H PRN PRN Reason: Pain, Mild (Pain Scale 1-3) Last Admin: 09/03/23 08:22 Dose: 650 mg Documented By: ARUNA Albuterol Sulfate (Albuterol Sulfate (0.083%) 2.5 Mg/3 Ml Vial.Neb) 2.5 mg INHALE Q2H PRN PRN Reason: Shortness of Breath/Wheezing Last Admin: 09/02/23 23:20 Dose: 2.5 mg Documented By: AMINAH Albuterol/Ipratropium (Albuterol/Iprat 2.5/0.5mg 3 Ml Ampul.Neb) 3 ml INHALE RQ4H WHILE AWAKE [facility] Last Admin: 09/03/23 07:30 Dose: 3 ml Documented By: SHIN Apixaban (Apixaban 5 Mg Tablet) 5 mg PO BID [facility] Last Admin: 09/03/23 08:21 Dose: 5 mg Documented By: ARUNA Atorvastatin Calcium (Atorvastatin Calcium 80 Mg Tablet) 80 mg PO DAILY [facility] Last Admin: 09/03/23 08:21 Dose: 80 mg Documented By: ARUNA Benzonatate (Benzonatate 100 Mg Capsule) 200 mg PO TID PRN PRN Reason: Cough Last Admin: 09/03/23 08:22 Dose: 200 mg Documented By: ARUNA Bupropion HCl (Bupropion Hcl 75 Mg Tablet) 150 mg PO BID [facility] Last Admin: 09/03/23 08:21 Dose: 150 mg Documented By: ARUNA Doxycycline Monohydrate (Doxycycline Monohydrate 100 Mg Capsule) 100 mg PO Q12H [facility] Last Admin: 09/03/23 08:21 Dose: 100 mg Documented By: ARUNA Dronedarone (Dronedarone Hcl 400 Mg Tablet) 400 mg PO BID [facility] Last Admin: 09/03/23 08:21 Dose: 400 mg Documented By: ARUNA Furosemide (Furosemide 40 Mg/4 Ml Vial) 40 mg IVPUSH DAILY [facility]; Protocol Last Admin: 09/03/23 09:41 Dose: 40 mg Documented By: ARUNA Ceftriaxone Sodium 1 gm/ (Sodium Chloride) 50 mls @ 100 mls/hr IV Q24H [facility] Last Infusion: 09/02/23 18:55 Dose: Infused Documented By: ARUNA Melatonin (Melatonin 3 Mg Tablet) 6 mg PO BEDTIME PRN PRN Reason: Insomnia Last Admin: 09/02/23 23:15 Dose: 6 mg Documented By: JONATAN Methylprednisolone Sodium Succinate (Methylprednisolone Sod Succ 40 Mg/Ml Vial) 40 mg IVPUSH Q12H [facility] Last Admin: 09/03/23 04:17 Dose: 40 mg Documented By: JONATAN Metoprolol Succinate (Metoprolol Succinate Er 100 Mg Tab.Er.24h) 100 mg PO BEDTIME [facility]; Protocol Last Admin: 09/02/23 21:44 Dose: 100 mg Documented By: JONATAN Montelukast Sodium (Montelukast Sodium 10 Mg Tablet) 10 mg PO DAILY [facility] Last Admin: 09/03/23 08:21 Dose: 10 mg Documented By: ARUNA Non-Formulary Medication (Arformoterol) 15 mg INHALE RBID [facility] Last Admin: 09/03/23 07:30 Dose: 15 mg Documented By: SHIN Roflumilast (Roflumilast 500 Mcg Tablet) 500 mcg PO DAILY [facility] Last Admin: 09/03/23 08:21 Dose: 500 mcg Documented By: ARUNA Sodium Chloride (0.9 % Sodium Chloride Flush 3 Ml Syringe) 3 ml IVFLUSH QSHIFT [facility] Last Admin: 09/03/23 08:23 Dose: 3 ml Documented By: ARUNA Tamsulosin HCl (Tamsulosin Hcl 0.4 Mg Capsule) 0.4 mg PO BID [facility] Last Admin: 09/03/23 08:22 Dose: 0.4 mg Documented By: ARUNA Theophylline (Theophylline Anhydrous Er 300 Mg Tab.Er.12h) 300 mg PO Q48H [facility] Last Admin: 09/02/23 09:07 Dose: 300 mg Documented By: ARUNA Labs 09/02/23 06:26 09/02/23 06:26 Assessment and Plan (1) COPD with acute exacerbation: Status: Inactive Plan 68M PMH pafib, copd/moderate persistent asthma, ild, mood disorder, bph, RAYMOND presented with shortness of breath COPD/moderate persistent asthma/ILD with acute decompensation sob a bit better, but still wheezy continue IV steroids, bronchodilators, ceftriaxone and doxycycline acute on chronic diastolic chf echo with normal EF creatinine trending up, decreased lasix to 40mg iv daily, monitor Paroxysmal atrial fibrillation Metoprolol, Multaq, apixaban BPH Flomax RAYMOND CPAP at night DVT prophylaxis-on Eliquis Full code reason for continued hospitalization:sob, wheezing Quality Stroke Does the patient have a stroke diagnosis?: No VTE Prior VTE?: No VTE Risk Level:: Medical - moderate - high VTE Device Contraindication: Treatment Not Indicated VTE Drug Contraindication: N/A - Med Ordered
--- NOTE | 2023-09-03 14:09 | P.PNPL_ITS ---
Subjective Subjective Date of Service: 09/03/23 Interval history: Respiratory status improved to baseline. Objective Data Labs 09/02/23 06:26 09/02/23 06:26 Physical Exam 2 Vital Signs: Vital Signs: Last Vital Signs Temp 98.2 F 09/03/23 11:14 Pulse 73 09/03/23 11:14 Resp 12 09/03/23 11:14 BP 143/65 H 09/03/23 11:14 Pulse Ox 94 09/03/23 11:14 O2 Del Method Room Air 09/03/23 11:14 Oxygen Flow Rate 2 08/30/23 13:49 BMI result Body Mass Index 30.7 Const: General: no acute distress, alert and awake Eyes: Sclerae: sclerae normal EOM: EOMs intact bilaterally Neck: Neck: Yes no lymphadenopathy, Yes trachea midline and Yes supple Resp: Effort & Inspection: normal respiratory effort and no respiratory distress Auscultation: clear to auscultation bilaterally Cardio: Rate: regular rate Rhythm: regular rhythm Heart sounds: no gallops, no murmurs and no rubs GI: Palpation (GI): Soft to palpation and Other GI palpation findings present ( Nontender) Auscultation: normal bowel sounds Extrem: General: Yes no pedal edema, No clubbing, No cyanosis and Yes edema (Trace bilateral) Procedures Date of Service Date of Service: 09/03/23 Assessment and Plan Assessment and plan (1) Dyspnea: Status: Acute (2) Acute exacerbation of chronic obstructive pulmonary disease: Status: Acute Plan Impression: 68-year-old gentleman with underlying chronic lung disease admitted with worsening dyspnea over several days and significant wheezing. Patient has been treated empirically for COPD exacerbation and diuretic with significant improvement in his symptoms, now at baseline. His 2D echocardiogram is essentially normal. Recommendations: Agree with empiric treatment for COPD exacerbation. Taper systemic glucocorticoids. Continue discontinuation of azithromycin. Continue nebulized bronchodilators. Time Spent With Patient Time: Total time managing care of this patient today ____ minutes. Progress Note: Quality Stroke Does the patient have a stroke diagnosis?: No
--- NOTE | 2023-09-03 14:13 | MHC.CM.PN ---
Pt has not been medically cleared for DC, he is being treated for SOB and wheezing. His DC plan is home self care, CM will follow and assist as needed with DC plan.
[2023-09-03] MEDS: cefTRIAXone sodium 1 GM in 0.9 % Sodium Chloride 50 ML IV (16:50)
[2023-09-03] MEDS: Metoprolol Succinate ER 100 MG TAB.ER.24H PO (20:52)
[2023-09-03] MEDS: Melatonin 3 MG TABLET 6 MG PO (20:53)
[2023-09-04] VITALS (11 sets, daily range): BP systolic 136–172; BP diastolic 63–75; PULSE 58–80; RESP 16–20; TEMP 36.3–37.3; O2SAT 94–97
[2023-09-04] MEDS: methylPREDNISolone Sod Succ 40 MG/ML VIAL IVPUSH ×2 (05:41→17:17)
[2023-09-04 06:00] LABS: Hematocrit 37.7 % (42.0-52.0); Hemoglobin 12.1 g/dl (14.0-18.0); Mean Corpuscular HGB Conc 32.1 g/dl (31.0-36.0); Mean Corpuscular Hemoglobin 29.7 pg (27.0-33.0); Mean Corpuscular Volume 92.4 fL (80.0-98.0); Mean Platelet Volume 10.1 fL (9.4-12.4); Platelet Count 313 X10*3/uL (160-400); Red Blood Count 4.08 X10*6/uL (4.60-5.80); Red Cell Distribution Width 13.2 % (11.0-16.0); White Blood Count 16.5 X10*3/uL (4.8-10.8)
[2023-09-04 06:21] LABS: Anion Gap 12 (12-20); Blood Urea Nitrogen 52 mg/dL (9-16); Calcium 9.4 mg/dL (8.4-10.2); Carbon Dioxide 29 mmol/L (22-29); Chloride 106 mmol/L (96-108); Creatinine Clr Calc Pharmacy 57.6; Estimated Glomerular Filt Rate 51; Glucose Fasting 97 mg/dL (60-99); Potassium 5.8 mmol/L (3.3-5.1); Sodium 141 mmol/L (135-145)
[2023-09-04] MEDS: Albuterol/Iprat 2.5/0.5MG 3 ML AMPUL.NEB INHALE ×4 (07:39→19:47)
[2023-09-04] MEDS: Apixaban 5 MG TABLET PO ×2 (08:38→21:17)
[2023-09-04] MEDS: Dronedarone HCl 400 MG TABLET PO ×2 (08:38→21:18)
[2023-09-04] MEDS: buPROPion HCL 75 MG TABLET 150 MG PO ×2 (08:38→21:17)
[2023-09-04] MEDS: Atorvastatin Calcium 80 MG TABLET PO (08:38)
[2023-09-04] MEDS: Furosemide 40 MG/4 ML VIAL IVPUSH (08:38)
[2023-09-04] MEDS: Doxycycline Monohydrate 100 MG CAPSULE PO ×2 (08:38→21:18)
[2023-09-04] MEDS: Tamsulosin HCL 0.4 MG CAPSULE PO ×2 (08:38→21:17)
[2023-09-04] MEDS: Roflumilast 500 MCG TABLET PO (08:38)
[2023-09-04] MEDS: Montelukast Sodium 10 MG TABLET PO (08:38)
[2023-09-04] MEDS: Theophylline Anhydrous ER 300 MG TAB.ER.12H PO (08:38)
[2023-09-04] MEDS: Sodium Zirconium Cyclosilicate 10 GM POWD.PACK PO (08:39)
[2023-09-04] MEDS: 0.9 % Sodium Chloride Flush 3 ML SYRINGE IVFLUSH ×3 (08:39→21:19)
--- NOTE | 2023-09-04 09:52 | P.PNIM_ITS ---
Subjective Subjective Date of Service: 09/04/23 Interval History: somewhat better, but still sob Physical Exam 2 Vital Signs: Vital Signs: Last Vital Signs Temp 98.3 F 09/04/23 07:09 Pulse 60 09/04/23 07:41 Resp 18 09/04/23 07:41 BP 172/74 H 09/04/23 07:09 Pulse Ox 96 09/04/23 07:09 O2 Del Method Room Air 09/04/23 07:09 Oxygen Flow Rate 2 08/30/23 13:49 BMI result Body Mass Index 30.7 Const: General: no acute distress, alert and awake Eyes: Sclerae: sclerae normal EOM: EOMs intact bilaterally Neck: Neck: Yes no lymphadenopathy, Yes trachea midline and Yes supple Resp: Effort & Inspection: normal respiratory effort and no respiratory distress Auscultation: clear to auscultation bilaterally Cardio: Rate: regular rate Rhythm: regular rhythm Heart sounds: no gallops, no murmurs and no rubs GI: Palpation (GI): Soft to palpation and Other GI palpation findings present ( Nontender) Auscultation: normal bowel sounds Extrem: General: Yes no pedal edema, No clubbing, No cyanosis and Yes edema (Trace bilateral) Objective Data Active Medications Acetaminophen (Acetaminophen 325 Mg Tablet) 650 mg PO Q6H PRN PRN Reason: Pain, Mild (Pain Scale 1-3) Last Admin: 09/03/23 08:22 Dose: 650 mg Documented By: ARUNA Albuterol Sulfate (Albuterol Sulfate (0.083%) 2.5 Mg/3 Ml Vial.Neb) 2.5 mg INHALE Q2H PRN PRN Reason: Shortness of Breath/Wheezing Last Admin: 09/02/23 23:20 Dose: 2.5 mg Documented By: AMINAH Albuterol/Ipratropium (Albuterol/Iprat 2.5/0.5mg 3 Ml Ampul.Neb) 3 ml INHALE RQ4H WHILE AWAKE [facility] Last Admin: 09/04/23 07:39 Dose: 3 ml Documented By: DIANELYS Amlodipine Besylate (Amlodipine Besylate 5 Mg Tablet) 5 mg PO DAILY [facility]; Protocol Apixaban (Apixaban 5 Mg Tablet) 5 mg PO BID [facility] Last Admin: 09/04/23 08:38 Dose: 5 mg Documented By: SHERINE Atorvastatin Calcium (Atorvastatin Calcium 80 Mg Tablet) 80 mg PO DAILY [facility] Last Admin: 09/04/23 08:38 Dose: 80 mg Documented By: SHERINE Benzonatate (Benzonatate 100 Mg Capsule) 200 mg PO TID PRN PRN Reason: Cough Last Admin: 09/03/23 20:52 Dose: 200 mg Documented By: LUPE Bupropion HCl (Bupropion Hcl 75 Mg Tablet) 150 mg PO BID [facility] Last Admin: 09/04/23 08:38 Dose: 150 mg Documented By: SHERINE Doxycycline Monohydrate (Doxycycline Monohydrate 100 Mg Capsule) 100 mg PO Q12H [facility] Last Admin: 09/04/23 08:38 Dose: 100 mg Documented By: SHERINE Dronedarone (Dronedarone Hcl 400 Mg Tablet) 400 mg PO BID [facility] Last Admin: 09/04/23 08:38 Dose: 400 mg Documented By: SHERINE Furosemide (Furosemide 40 Mg/4 Ml Vial) 40 mg IVPUSH DAILY [facility]; Protocol Last Admin: 09/04/23 08:38 Dose: 40 mg Documented By: SHERINE Ceftriaxone Sodium 1 gm/ (Sodium Chloride) 50 mls @ 100 mls/hr IV Q24H [facility] Last Infusion: 09/03/23 17:20 Dose: Infused Documented By: ARUNA Melatonin (Melatonin 3 Mg Tablet) 6 mg PO BEDTIME PRN PRN Reason: Insomnia Last Admin: 09/03/23 20:53 Dose: 6 mg Documented By: LUPE Methylprednisolone Sodium Succinate (Methylprednisolone Sod Succ 40 Mg/Ml Vial) 40 mg IVPUSH Q12H [facility] Last Admin: 09/04/23 05:41 Dose: 40 mg Documented By: LUPE Metoprolol Succinate (Metoprolol Succinate Er 100 Mg Tab.Er.24h) 100 mg PO BEDTIME [facility]; Protocol Last Admin: 09/03/23 20:52 Dose: 100 mg Documented By: LUPE Montelukast Sodium (Montelukast Sodium 10 Mg Tablet) 10 mg PO DAILY [facility] Last Admin: 09/04/23 08:38 Dose: 10 mg Documented By: SHERINE Non-Formulary Medication (Arformoterol) 15 mg INHALE RBID [facility] Last Admin: 09/04/23 07:39 Dose: 15 mg Documented By: DIANELYS Roflumilast (Roflumilast 500 Mcg Tablet) 500 mcg PO DAILY [facility] Last Admin: 09/04/23 08:38 Dose: 500 mcg Documented By: SHERINE Sodium Chloride (0.9 % Sodium Chloride Flush 3 Ml Syringe) 3 ml IVFLUSH QSHIFT [facility] Last Admin: 09/04/23 08:39 Dose: 3 ml Documented By: SHERINE Tamsulosin HCl (Tamsulosin Hcl 0.4 Mg Capsule) 0.4 mg PO BID [facility] Last Admin: 09/04/23 08:38 Dose: 0.4 mg Documented By: SHERINE Theophylline (Theophylline Anhydrous Er 300 Mg Tab.Er.12h) 300 mg PO Q48H [facility] Last Admin: 09/04/23 08:38 Dose: 300 mg Documented By: SHERINE Labs 09/04/23 05:43 09/04/23 05:43 Labs: Laboratory Results - last 24 hr 09/04/23 05:43 MCV 92.4 MCH 29.7 MCHC 32.1 RDW 13.2 Plt Count 313 MPV 10.1 Absolute Nucleated RBC 0.000 Nucleated RBC % (auto) 0.0 Anion Gap 12 Estim Creat Clear Calc 57.6 Estimated GFR 51 Fasting Glucose 97 Calcium 9.4 D Assessment and Plan (1) COPD with acute exacerbation: Status: Inactive Plan 68M PMH pafib, copd/moderate persistent asthma, ild, CKD III, mood disorder, bph, RAYMOND presented with shortness of breath COPD/moderate persistent asthma/ILD with acute decompensation cotninues to be sob and very wheezy continue IV steroids, bronchodilators, ceftriaxone and doxycycline acute hyperkalemia lokelma, monitor htn will start amlodipine 5mg daily acute on chronic diastolic chf echo with normal EF lasix to 40mg iv daily mild dorinda on CKD III improving Paroxysmal atrial fibrillation Metoprolol, Multaq, apixaban BPH Flomax RAYMOND CPAP at night DVT prophylaxis-on Eliquis Full code reason for continued hospitalization:sob, wheezing Quality Stroke Does the patient have a stroke diagnosis?: No VTE Prior VTE?: No VTE Risk Level:: Medical - moderate - high VTE Device Contraindication: Treatment Not Indicated VTE Drug Contraindication: N/A - Med Ordered
--- NOTE | 2023-09-04 10:32 | MHC.CM.PN ---
Per ROUNDS discussion, Patient is not yet medically cleared for dc (still SOB & Wheezing); home is the goal and CM will continue to follow.
[2023-09-04] MEDS: amLODIPine Besylate 5 MG TABLET PO (11:27)
[2023-09-04] MEDS: Benzonatate 100 MG CAPSULE 200 MG PO ×2 (11:27→21:17)
--- NOTE | 2023-09-04 13:24 | P.PNPL_ITS ---
Subjective Subjective Date of Service: 09/04/23 Interval history: Respiratory status at baseline. Objective Data Labs 09/04/23 05:43 09/04/23 05:43 Labs: Laboratory Results - last 24 hr 09/04/23 05:43 WBC 16.5 H RBC 4.08 L Hgb 12.1 L Hct 37.7 L MCV 92.4 MCH 29.7 MCHC 32.1 RDW 13.2 Plt Count 313 MPV 10.1 Absolute Nucleated RBC 0.000 Nucleated RBC % (auto) 0.0 Sodium 141 Potassium 5.8 H D Chloride 106 Carbon Dioxide 29 Anion Gap 12 BUN 52 H Creatinine 1.39 Estim Creat Clear Calc 57.6 Estimated GFR 51 Fasting Glucose 97 Calcium 9.4 D Physical Exam 2 Vital Signs: Vital Signs: Last Vital Signs Temp 98.2 F 09/04/23 11:04 Pulse 58 09/04/23 11:21 Resp 16 09/04/23 11:21 BP 136/63 09/04/23 11:04 Pulse Ox 94 09/04/23 11:04 O2 Del Method Room Air 09/04/23 11:04 Oxygen Flow Rate 2 08/30/23 13:49 BMI result Body Mass Index 30.7 Const: General: no acute distress, alert and awake Eyes: Sclerae: sclerae normal EOM: EOMs intact bilaterally Neck: Neck: Yes no lymphadenopathy, Yes trachea midline and Yes supple Resp: Effort & Inspection: normal respiratory effort and no respiratory distress Auscultation: clear to auscultation bilaterally Cardio: Rate: regular rate Rhythm: regular rhythm Heart sounds: no gallops, no murmurs and no rubs GI: Palpation (GI): Soft to palpation and Other GI palpation findings present ( Nontender) Auscultation: normal bowel sounds Extrem: General: Yes no pedal edema, No clubbing and No cyanosis Procedures Date of Service Date of Service: 09/04/23 Assessment and Plan Assessment and plan (1) Dyspnea: Status: Acute (2) Chronic lung disease: Status: Acute Plan Impression: 68-year-old gentleman with underlying chronic lung disease admitted with worsening dyspnea over several days and significant wheezing. Patient has been treated empirically for COPD exacerbation and diuretic with resolution of his symptoms, now at baseline. His 2D echocardiogram is essentially normal. Recommendations: Taper systemic glucocorticoids. Consider discontinuation of empiric antibiotic. Continue nebulized bronchodilators/theophylline. Time Spent With Patient Time: Total time managing care of this patient today ____ minutes. Progress Note: Quality Stroke Does the patient have a stroke diagnosis?: No
[2023-09-04] MEDS: cefTRIAXone sodium 1 GM in 0.9 % Sodium Chloride 50 ML IV (16:41)
[2023-09-04] MEDS: Melatonin 3 MG TABLET 6 MG PO (21:17)
[2023-09-04] MEDS: Metoprolol Succinate ER 100 MG TAB.ER.24H PO (21:18)
[2023-09-05] VITALS (11 sets, daily range): BP systolic 121–152; BP diastolic 57–69; PULSE 57–78; RESP 17–20; TEMP 36.6–37.2; O2SAT 93–98
[2023-09-05] MEDS: methylPREDNISolone Sod Succ 40 MG/ML VIAL IVPUSH ×2 (04:20→17:43)
[2023-09-05 06:05] LABS: Hematocrit 38.4 % (42.0-52.0); Hemoglobin 12.2 g/dl (14.0-18.0); Mean Corpuscular HGB Conc 31.8 g/dl (31.0-36.0); Mean Corpuscular Hemoglobin 29.3 pg (27.0-33.0); Mean Corpuscular Volume 92.3 fL (80.0-98.0); Mean Platelet Volume 10.3 fL (9.4-12.4); Platelet Count 311 X10*3/uL (160-400); Red Blood Count 4.16 X10*6/uL (4.60-5.80); Red Cell Distribution Width 13.2 % (11.0-16.0)
[2023-09-05 06:17] LABS: Anion Gap 13 (12-20); Blood Urea Nitrogen 57 mg/dL (9-16); Calcium 9.5 mg/dL (8.4-10.2); Carbon Dioxide 27 mmol/L (22-29); Chloride 104 mmol/L (96-108); Creatinine Clr Calc Pharmacy 54.1; Estimated Glomerular Filt Rate 47; Glucose Fasting 100 mg/dL (60-99); Sodium 139 mmol/L (135-145)
[2023-09-05] MEDS: Albuterol/Iprat 2.5/0.5MG 3 ML AMPUL.NEB INHALE ×4 (08:11→19:49)
[2023-09-05] MEDS: amLODIPine Besylate 5 MG TABLET PO (09:42)
[2023-09-05] MEDS: 0.9 % Sodium Chloride Flush 3 ML SYRINGE IVFLUSH ×3 (09:42→21:59)
[2023-09-05] MEDS: buPROPion HCL 75 MG TABLET 150 MG PO ×2 (09:43→21:56)
[2023-09-05] MEDS: Atorvastatin Calcium 80 MG TABLET PO (09:43)
[2023-09-05] MEDS: Tamsulosin HCL 0.4 MG CAPSULE PO ×2 (09:43→21:59)
[2023-09-05] MEDS: Roflumilast 500 MCG TABLET PO (09:43)
[2023-09-05] MEDS: Doxycycline Monohydrate 100 MG CAPSULE PO ×2 (09:43→21:59)
[2023-09-05] MEDS: Apixaban 5 MG TABLET PO ×2 (09:43→21:56)
[2023-09-05] MEDS: Dronedarone HCl 400 MG TABLET PO ×2 (09:43→21:55)
[2023-09-05] MEDS: Furosemide 40 MG/4 ML VIAL IVPUSH (09:43)
[2023-09-05] MEDS: Montelukast Sodium 10 MG TABLET PO (09:43)
[2023-09-05] MEDS: Benzonatate 100 MG CAPSULE 200 MG PO ×2 (10:17→19:15)
--- NOTE | 2023-09-05 10:47 | MHC.CM.PN ---
CM met with Patient at bedside and addressed IMM with him; original was given to Patient and a copy was placed on the chart.
--- NOTE | 2023-09-05 14:34 | P.PNIM_ITS ---
Subjective Subjective Date of Service: 09/05/23 Interval History: Seen and evaluated this morning reports dyspnea with exertion overall better no overnight events Review of Systems Review of Systems: Yes all other systems are reviewed and are negative Physical Exam 2 Vital Signs: Vital Signs: Last Vital Signs Temp 98.8 F 09/05/23 11:18 Pulse 64 09/05/23 11:38 Resp 17 09/05/23 11:38 BP 149/69 H 09/05/23 11:18 Pulse Ox 97 09/05/23 11:18 O2 Del Method Room Air 09/05/23 11:18 Oxygen Flow Rate 2 08/30/23 13:49 BMI result Body Mass Index 30.7 Const: Other: Constitutional : Awake, interactive, not in distress Neck : Normal inspection, Supple Cardiovascular : RRR, no JVP, no lower extremity edema Respiratory : decreased bilateral air entry, no crackles, bilateral wheezes Gastrointestinal: soft, lax, Normal bowel sounds, Non tender Skin : Warm, Dry Neurological : Alert & oriented x3, No focal deficit Objective Data Active Medications Acetaminophen (Acetaminophen 325 Mg Tablet) 650 mg PO Q6H PRN PRN Reason: Pain, Mild (Pain Scale 1-3) Last Admin: 09/03/23 08:22 Dose: 650 mg Documented By: ARUNA Albuterol Sulfate (Albuterol Sulfate (0.083%) 2.5 Mg/3 Ml Vial.Neb) 2.5 mg INHALE Q2H PRN PRN Reason: Shortness of Breath/Wheezing Last Admin: 09/02/23 23:20 Dose: 2.5 mg Documented By: AMINAH Albuterol/Ipratropium (Albuterol/Iprat 2.5/0.5mg 3 Ml Ampul.Neb) 3 ml INHALE RQ4H WHILE AWAKE [facility] Last Admin: 09/05/23 11:37 Dose: 3 ml Documented By: PATRICIA Amlodipine Besylate (Amlodipine Besylate 5 Mg Tablet) 5 mg PO DAILY [facility]; Protocol Last Admin: 09/05/23 09:42 Dose: 5 mg Documented By: SHERINE Apixaban (Apixaban 5 Mg Tablet) 5 mg PO BID [facility] Last Admin: 09/05/23 09:43 Dose: 5 mg Documented By: SHERINE Atorvastatin Calcium (Atorvastatin Calcium 80 Mg Tablet) 80 mg PO DAILY [facility] Last Admin: 09/05/23 09:43 Dose: 80 mg Documented By: SHERINE Benzonatate (Benzonatate 100 Mg Capsule) 200 mg PO TID PRN PRN Reason: Cough Last Admin: 09/05/23 10:17 Dose: 200 mg Documented By: SHERINE Bupropion HCl (Bupropion Hcl 75 Mg Tablet) 150 mg PO BID [facility] Last Admin: 09/05/23 09:43 Dose: 150 mg Documented By: SHERINE Doxycycline Monohydrate (Doxycycline Monohydrate 100 Mg Capsule) 100 mg PO Q12H [facility] Last Admin: 09/05/23 09:43 Dose: 100 mg Documented By: SHERINE Dronedarone (Dronedarone Hcl 400 Mg Tablet) 400 mg PO BID [facility] Last Admin: 09/05/23 09:43 Dose: 400 mg Documented By: SHERINE Furosemide (Furosemide 40 Mg/4 Ml Vial) 40 mg IVPUSH DAILY [facility]; Protocol Last Admin: 09/05/23 09:43 Dose: 40 mg Documented By: SHERINE Ceftriaxone Sodium 1 gm/ (Sodium Chloride) 50 mls @ 100 mls/hr IV Q24H [facility] Last Infusion: 09/04/23 17:16 Dose: Infused Documented By: SHERINE Melatonin (Melatonin 3 Mg Tablet) 6 mg PO BEDTIME PRN PRN Reason: Insomnia Last Admin: 09/04/23 21:17 Dose: 6 mg Documented By: CHRISTIE Methylprednisolone Sodium Succinate (Methylprednisolone Sod Succ 40 Mg/Ml Vial) 40 mg IVPUSH Q12H [facility] Last Admin: 09/05/23 04:20 Dose: 40 mg Documented By: CHRISTIE Metoprolol Succinate (Metoprolol Succinate Er 100 Mg Tab.Er.24h) 100 mg PO BEDTIME [facility]; Protocol Last Admin: 09/04/23 21:18 Dose: 100 mg Documented By: CHRISTIE Montelukast Sodium (Montelukast Sodium 10 Mg Tablet) 10 mg PO DAILY [facility] Last Admin: 09/05/23 09:43 Dose: 10 mg Documented By: SHERINE Non-Formulary Medication (Arformoterol) 15 mg INHALE RBID [facility] Last Admin: 09/05/23 08:11 Dose: 15 mg Documented By: HO.BRESNE Roflumilast (Roflumilast 500 Mcg Tablet) 500 mcg PO DAILY [facility] Last Admin: 09/05/23 09:43 Dose: 500 mcg Documented By: SHERINE Sodium Chloride (0.9 % Sodium Chloride Flush 3 Ml Syringe) 3 ml IVFLUSH QSHIFT [facility] Last Admin: 09/05/23 09:42 Dose: 3 ml Documented By: SHERINE Tamsulosin HCl (Tamsulosin Hcl 0.4 Mg Capsule) 0.4 mg PO BID [facility] Last Admin: 09/05/23 09:43 Dose: 0.4 mg Documented By: SHERINE Theophylline (Theophylline Anhydrous Er 300 Mg Tab.Er.12h) 300 mg PO Q48H [facility] Last Admin: 09/04/23 08:38 Dose: 300 mg Documented By: SHERINE Labs 09/05/23 05:34 09/05/23 05:34 Labs: Laboratory Results - last 24 hr 09/05/23 05:34 MCV 92.3 MCH 29.3 MCHC 31.8 RDW 13.2 Plt Count 311 MPV 10.3 Absolute Nucleated RBC 0.000 Nucleated RBC % (auto) 0.0 Anion Gap 13 Estim Creat Clear Calc 54.1 Estimated GFR 47 Fasting Glucose 100 H Calcium 9.5 Assessment and Plan (1) Dyspnea: Status: Acute (2) Pneumonia: Status: Acute (3) Acute exacerbation of chronic obstructive pulmonary disease: Status: Acute Plan 68M PMH pafib, copd/moderate persistent asthma, ild, CKD III, mood disorder, bph, RAYMOND presented with shortness of breath COPD/moderate persistent asthma/ILD with acute decompensation cotninues to be sob and very wheezy DC IV steroids, start PO continue bronchodilators,theophylline Continue ceftriaxone and doxycycline acute hyperkalemia resolved htn will start amlodipine 5mg daily acute on chronic diastolic chf echo with normal EF lasix to 40mg iv daily mild dorinda on CKD III improving Paroxysmal atrial fibrillation Metoprolol, Multaq, apixaban BPH Flomax RAYMOND CPAP at night DVT prophylaxis-on Eliquis Full code reason for continued hospitalization:sob, wheezing pending clinical improvement Quality Stroke Does the patient have a stroke diagnosis?: No VTE Prior VTE?: No VTE Risk Level:: Medical - moderate - high VTE Device Contraindication: Treatment Not Indicated VTE Drug Contraindication: N/A - Med Ordered
[2023-09-05] MEDS: cefTRIAXone sodium 1 GM in 0.9 % Sodium Chloride 50 ML IV (17:42)
[2023-09-05] MEDS: Melatonin 3 MG TABLET 6 MG PO (21:56)
[2023-09-05] MEDS: Metoprolol Succinate ER 100 MG TAB.ER.24H PO (21:56)
[2023-09-06 03:28] VITALS: BP 128/59; PULSE 70; RESP 18; TEMP 36.6; O2SAT 94
[2023-09-06 06:21] LABS: Anion Gap 11 (12-20); Blood Urea Nitrogen 61 mg/dL (9-16); Calcium 9.2 mg/dL (8.4-10.2); Carbon Dioxide 28 mmol/L (22-29); Chloride 105 mmol/L (96-108); Creatinine Clr Calc Pharmacy 53.7; Estimated Glomerular Filt Rate 47; Glucose Random 113 mg/dL (60-115); Potassium 4.9 mmol/L (3.3-5.1); Sodium 139 mmol/L (135-145)
[2023-09-06 07:26] VITALS: BP 149/70; PULSE 63; RESP 20; TEMP 36.1; O2SAT 96
[2023-09-06] MEDS: Montelukast Sodium 10 MG TABLET PO (08:03)
[2023-09-06] MEDS: Apixaban 5 MG TABLET PO (08:03)
[2023-09-06] MEDS: predniSONE 20 MG TABLET 40 MG PO (08:03)
[2023-09-06] MEDS: Atorvastatin Calcium 80 MG TABLET PO (08:03)
[2023-09-06] MEDS: Doxycycline Monohydrate 100 MG CAPSULE PO (08:03)
[2023-09-06] MEDS: Dronedarone HCl 400 MG TABLET PO (08:03)
[2023-09-06] MEDS: amLODIPine Besylate 5 MG TABLET PO (08:03)
[2023-09-06] MEDS: Theophylline Anhydrous ER 300 MG TAB.ER.12H PO (08:04)
[2023-09-06] MEDS: buPROPion HCL 75 MG TABLET 150 MG PO (08:04)
[2023-09-06] MEDS: Furosemide 40 MG/4 ML VIAL IVPUSH (08:04)
[2023-09-06] MEDS: Tamsulosin HCL 0.4 MG CAPSULE PO (08:04)
[2023-09-06] MEDS: Roflumilast 500 MCG TABLET PO (08:04)
[2023-09-06] MEDS: 0.9 % Sodium Chloride Flush 3 ML SYRINGE IVFLUSH (08:04)
[2023-09-06] MEDS: Benzonatate 100 MG CAPSULE 200 MG PO (08:06)
[2023-09-06] MEDS: Albuterol/Iprat 2.5/0.5MG 3 ML AMPUL.NEB INHALE ×2 (08:53→11:27)
[2023-09-06 08:55] VITALS: PULSE 63; RESP 18; O2SAT 95; O2SAT 96
[2023-09-06 11:21] VITALS: BP 131/63; PULSE 60; RESP 16; TEMP 36.6; O2SAT 95
[2023-09-06 11:27] VITALS: PULSE 74; RESP 16; O2SAT 97
--- NOTE | 2023-09-06 14:24 | PM.DS ---
DS: Providers Provider Date of Service: 09/06/23 Date of admission: 08/30/23 16:22 Primary care physician: Guilherme Mcallister MD Consults: 08/30/23 16:19 Consult to Pulmonology Routine Consulting Provider: [facility] [place] Pulmonology Services Reason for consultation: copd/asthma DS: Diagnosis Discharge Diagnosis (1) Dyspnea: Status: Acute (2) Pneumonia: Status: Acute (3) Acute exacerbation of chronic obstructive pulmonary disease: Status: Acute (4) Bronchopneumonia: Status: Acute DS: Summary Hospital Course Hospital Course: Admission note 68M PMH pafib, copd/moderate persistent asthma, ild, mood disorder, bph, RAYMOND presented with shortness of breath. Patient had been admitted to [facility] [place] from 08/06/23- 08/10/23 for COPD/asthma exacerbation. Was treated with steroids and antibiotics and discharged on taper. Patient states that he really has not felt any improvement since discharge. Continues to be short of breath on minimal exertion. Was seen by Pulmonary on 08/28/2023. Was given additional steroids, DuoNebs, antibiotics. But patient continued to feel poorly so came to ED. Patient reports fever of 101 1 day prior to presentation. Denies any sick contacts. Hospital course The patient was admitted to the hospital for acute COPD exacerbation, ILD with acute decompensation and possible pneumonia based on CXR done showing airspace disease. covered with IV antibiotics of Doxycycline and Ceftriaxone and treated with IV steroids, nebulizers along with theophylline as he was seen by pulmonology with good response over the course of hospital stay as he was weaned off O2 supplement. acute hyperkalemia resolved with K lowering agent. For uncontrolled HTN he was started on amlodipine 5mg daily with fair control. for acute on chronic diastolic chf. echo with normal EF. improved with lasix to 40mg iv daily. Discharge Plan USe home nebulizer every 4-6 hours while awake and as needed for the next 3 days Continue Prednisone Continue Doxycycline Tessalon for cough Start Amlodipine for blood pressure control. Monitor your readings for next week and report them to PCP for furhter adjustments of medications Follow CXR in [address] Head Time Attestation Discharge Coordination Time (in mins): 35 Quality: Safe Use of Opioids Does Pt have an Active Cancer Diagnosis on the Problem List?: No Quality: Stroke Does the patient have a stroke diagnosis?: No Physical Exam Vital Signs: Vital Signs: Last Vital Signs Temp 97.8 F 09/06/23 11:21 Pulse 74 09/06/23 11:27 Resp 16 09/06/23 11:27 BP 131/63 09/06/23 11:21 Pulse Ox 95 09/06/23 11:21 O2 Del Method Room Air 09/06/23 11:21 Oxygen Flow Rate 2 08/30/23 13:49 BMI result Body Mass Index 30.7 Const: Other: Constitutional : Awake, interactive, not in distress Neck : Normal inspection, Supple Cardiovascular : RRR, no JVP, no lower extremity edema Respiratory : fair bilateral air entry, no crackles, scattered wheezes bilaterally Gastrointestinal: soft, lax, Normal bowel sounds, Non tender Skin : Warm, Dry Neurological : Alert & oriented x3, No focal deficit DS: Data Data Completed and Pending Completed studies during hospitalization [Text1]: Procedures Assistance with Respiratory Ventilation, Less than 24 Consecutive Hours, Continuous Positive Airway Pressure (08/07/23) Labs on day of discharge: Laboratory Results - last 24 hr 09/06/23 05:44 Hold Purple Top SEE NOTE Sodium 139 Potassium 4.9 Chloride 105 Carbon Dioxide 28 Anion Gap 11 L BUN 61 H Creatinine 1.49 H Estim Creat Clear Calc 53.7 Estimated GFR 47 Random Glucose 113 Calcium 9.2 Imaging Chest x-ray: Radiologist's impression: ITS Impressions Chest X-Ray 08/30/23 14:58 IMPRESSION: Worsening interstitial thickening and a few new focal bilateral airspace opacities concerning for an atypical infectious/inflammatory process. Recommend short-term follow-up to ensure appropriate resolution. Discharge Plan Discharge Anticipated Discharge Date/Time: 09/06/23 14:15 Patient Disposition: Home, Self-Care Discharge Diagnosis: COPD exacerbation Referrals: Marilou Bartlett FNP-BC [Nurse Practitioner] - 09/12/23 11:30 am (You have a follow up appointment scheduled. If you can not make this appointment please call the office to reschedule. ) Discharge Medications: New prednisone 20 mg Tablet 40 mg PO DAILY Qty: 8 0RF amlodipine 5 mg Tablet 5 mg PO DAILY Qty: 90 0RF Protocol: Hold for SBP< HOLD for SBP < : 90 benzonatate 100 mg Capsule 200 mg PO TID PRN (Reason: Cough) Qty: 30 0RF doxycycline monohydrate 100 mg Capsule 100 mg PO Q12H Qty: 6 0RF Continued montelukast 10 mg tablet 10 mg PO DAILY Qty: 90 3RF arformoterol [Brovana] 15 mcg/2 mL solution for nebulization 15 mcg inhalation BID Qty: 360 3RF atorvastatin 80 mg tablet 80 mg PO DAILY Qty: 90 3RF levalbuterol HCl 1.25 mg/3 mL solution for nebulization 1.25 mg inhalation BID 90 Days Qty: 540 3RF tamsulosin [Flomax] 0.4 mg capsule 0.4 mg PO BID 90 Days Qty: 180 2RF bupropion HCl 75 mg tablet 150 mg PO BID 90 Days Qty: 360 3RF Multaq 400 mg tablet 400 mg PO BID 90 Days Qty: 180 3RF Rx Instructions: must administer with a meal/food Eliquis 5 mg tablet 5 mg PO BID Qty: 180 3RF budesonide 0.5 mg/2 mL suspension for nebulization 0.5 mg inhalation BID Qty: 360 3RF roflumilast 500 mcg tablet 500 mcg PO DAILY Qty: 90 3RF prednisone 10 mg tablet See Taper PO DAILY Taper: Prednisone 60 mg daily for 2 Days and 0 Hour 50 mg daily for 3 Days and 0 Hour 40 mg daily for 3 Days and 0 Hour 30 mg daily for 3 Days and 0 Hour 20 mg daily for 3 Days 10 mg daily for 3 Days Rx Instructions: PO daily; Take 6 tabs daily x 3 days, then 5 tabs x 3 days, then 4 tabs x 3 days, then 3 tabs x 3 days, then 2 tabs daily x 3 days, then 1 tab x 3 days to complete. metoprolol succinate 100 mg tablet extended release 24 hr 100 mg PO BEDTIME theophylline 300 mg tablet extended release 12 hr 300 mg PO Q48H furosemide 20 mg tablet 20 mg PO Q48H Tezspire 210 mg/1.91 mL (110 mg/mL) Pen Injector 210 mg SUBCUT Q4W albuterol sulfate 90 mcg/actuation HFA aerosol inhaler 2 puff inhalation QID PRN (Reason: Shortness Of Breath) (DME) nebulizers Misc See Rx Instructions .Route Rx Instructions: As directed (DME) CPAP Machine/Device Device See Rx Instructions .Route Rx Instructions: As directed Discontinued doxycycline hyclate 100 mg capsule 100 mg PO BID 10 Days Qty: 20 0RF Rx Instructions: X 10 DAYS, FINSIHED 09/08/23 cefpodoxime 200 mg tablet 200 mg PO BID Qty: 20 0RF Rx Instructions: must administer with a meal/food X 10 DAYS, FINSIHED 09/08/23 Discharge Orders: Discharge Order (Routine); Ordered 09/06/23 Ordered By: Jackie Edmond Diet: Advance to usual diet Activity on Discharge: As tolerated Stand Alone Forms: Patient Portal Discharge page Print Language: Australian Other Ambulatory Orders: XR chest 2V (Routine) Timeframe: 2 Weeks Facility: [facility] - Location: Radiology Ordered By: Jackie Edmond Care Plan Goals: Read below Health Concerns: Read below Plan of Treatment: Read below Assessment: USe home nebulizer every 4-6 hours while awake and as needed for the next 3 days Continue Prednisone Continue Doxycycline Tessalon for cough Start Amlodipine for blood pressure control. Monitor your readings for next week and report them to PCP for furhter adjustments of medications Repeat Chest XR Discharge Date/Time: 09/06/23 16:39
== END 2023-09-06 16:39 | disposition home or self-care (01) | DRG 190 ==
LOC: HO.ED 16:23 → HO.EDOVER 16:42 → HO.IMC 08-31 00:51
PROVIDERS: Admitting Provider Internal Medicine; Emergency Provider Student in an Organized Health Care Education/Training Program; PCP Family Medicine; Visit Provider Student in an Organized Health Care Education/Training Program
DX: J44.0 Chronic obstructive pulmonary disease with (acute) lower respiratory infection (principal); I50.33 Acute on chronic diastolic (congestive) heart failure; J18.9 Pneumonia, unspecified organism; I13.0 Hypertensive heart and chronic kidney disease with heart failure and stage 1 through stage 4 chronic kidney disease, or unspecified chronic kidney disease; J45.41 Moderate persistent asthma with (acute) exacerbation; N17.9 Acute kidney failure, unspecified; E87.5 Hyperkalemia; N40.0 Benign prostatic hyperplasia without lower urinary tract symptoms; J44.1 Chronic obstructive pulmonary disease with (acute) exacerbation; G47.33 Obstructive sleep apnea (adult) (pediatric); N18.30 Chronic kidney disease, stage 3 unspecified; Z20.822 Contact with and (suspected) exposure to COVID-19; Z87.891 Personal history of nicotine dependence; Z79.01 Long term (current) use of anticoagulants; Z79.899 Other long term (current) drug therapy
CPT/HCPCS: 0241U; 36415; 71046; 80048; 82803; 83735; 83880; 84484; 85025; 85027; 93005; 93306; 93356; 94640; 96372; 97162; 99212; 99285; J0456; J0696; J1940; J2920; J2930; J3475; Q9957

== ENCOUNTER → 2023-08-30 13:54 | Outpatient (BNV) | payer MEDICARE, OTHER, SELFPAY | PROVIDERS: Admitting Provider Internal Medicine; Emergency Provider Student in an Organized Health Care Education/Training Program; PCP Family Medicine; Visit Provider Internal Medicine Cardiovascular Disease | DX: R06.02 Shortness of breath (principal) | CPT/HCPCS: 93010 ==

== ENCOUNTER 2023-08-30 16:22 | Outpatient (BNV) | payer MEDICARE, OTHER, SELFPAY | END 2023-09-02 07:00 | PROVIDERS: Admitting Provider Internal Medicine; Emergency Provider Student in an Organized Health Care Education/Training Program; PCP Family Medicine; Visit Provider Internal Medicine | DX: I35.0 Nonrheumatic aortic (valve) stenosis (principal) | CPT/HCPCS: 93306; 93356 ==

== ENCOUNTER → 2023-08-30 16:22 | Outpatient (BNV) | payer MEDICARE, OTHER, SELFPAY | PROVIDERS: Admitting Provider Internal Medicine; Emergency Provider Student in an Organized Health Care Education/Training Program; PCP Family Medicine; Visit Provider Internal Medicine Pulmonary Disease | DX: R06.00 Dyspnea, unspecified (principal); J98.4 Other disorders of lung | CPT/HCPCS: 99222; 99231; 99232 ==

== ENCOUNTER → 2023-08-30 16:22 | Outpatient (BNV) | payer MEDICARE, OTHER, SELFPAY | PROVIDERS: Admitting Provider Internal Medicine; Emergency Provider Student in an Organized Health Care Education/Training Program; PCP Family Medicine; Visit Provider Internal Medicine | DX: R06.00 Dyspnea, unspecified (principal); J18.9 Pneumonia, unspecified organism; J44.1 Chronic obstructive pulmonary disease with (acute) exacerbation; J18.0 Bronchopneumonia, unspecified organism | CPT/HCPCS: 99223; 99232; 99233; 99239 ==

== ENCOUNTER 2023-09-12 11:20 | Outpatient (AMB) | payer MEDICARE, OTHER, SELFPAY ==
--- NOTE | 2023-09-12 11:24 | MHC.PC.OV ---
Vital Signs 09/12/23 11:27 Height 5 ft 9 in Weight 216 lb BMI 31.9 BP 136/50 L Blood Pressure Location Lt brachial Position Sitting Respiration 15 Pulse 98 Pulse Source Pulse Oximeter Pulse Oximetry (%) 99 Oxygen Delivery Method Room Air Intake Visit Reasons: [facility] [place] Intake Note: Patient is here to follow up for hospital visit. Patient reports he has no concerns at this time. 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 Accompanied by: Self / Same As Patient Allergies watermelon [WATERMELON] Allergy (Severe, Verified 09/12/23 11:46) ANAPHYLAXIS Iodinated Contrast Media [IV CONTRAST] Allergy (Intermediate, Verified 09/12/23 11:46) LIGHT HEADED AND SHORTNESS OF BREATH Medication List - Last Reconciled 09/12/23 by MATILDE Olguin- albuterol sulfate 90 mcg/actuation 2 puffs inhalation QID PRN amlodipine 5 mg See Protocol PO DAILY apixaban (Eliquis) 5 mg PO BID arformoterol (Brovana) 15 mcg (2 mL) inhalation BID atorvastatin 80 mg PO DAILY benzonatate 200 mg (2 x 100 mg) PO TID PRN budesonide 0.5 mg (2 mL) inhalation BID bupropion HCl 150 mg (2 x 75 mg) PO BID 90 days CPAP (CPAP Machine/Device) As directed dronedarone (Multaq) 400 mg PO BID 90 days furosemide 20 mg PO Q48H levalbuterol HCl 1.25 mg (3 mL) inhalation BID 90 days metoprolol succinate ER 100 mg PO BEDTIME montelukast 10 mg PO DAILY nebulizers As directed roflumilast 500 mcg PO DAILY tamsulosin (Flomax) 0.4 mg PO BID 90 days tezepelumab-ekko (Tezspire) 210 mg subcut Q4W theophylline ER 300 mg PO Q48H Tobacco use date assessed: 06/27/23 Dental Screening Dental Screen Date: 06/27/23 HPI HPI Comments History of Present Illness Details A 68-year-old male with AFib, COPD/moderate persistent asthma interstitial lung disease presented to [facility] on 08/30/2023 and was admitted with an acute exacerbation of COPD, bronchopneumonia, discharged home 09/06/2023. Hospital discharge workup and discharge summary reviewed. He was treated with steroids and antibiotics and discharged on a taper. Pulmonology was consulted. His labs initially showed acute hyperkalemia which resolved with K lowering agent. Uncontrolled hypertension he was started on amlodipine 5 mg with good control. Acute on chronic diastolic CHF, echo normal ejection fraction, treated with IV Lasix. Chest X-Ray 08/30/23 14:58 IMPRESSION: Worsening interstitial thickening and a few new focal bilateral airspace opacities concerning for an atypical infectious/inflammatory process. Recommend short-term follow-up to ensure appropriate resolution. Discharge Plan USe home nebulizer every 4-6 hours while awake and as needed for the next 3 days Continue Prednisone Continue Doxycycline Tessalon for cough Start Amlodipine for blood pressure control. Monitor your readings for next week and report them to PCP for further adjustments of medications Follow CXR in [address] Head Discharge Medications: New prednisone 20 mg Tablet 40 mg PO DAILY Qty: 8 0RF amlodipine 5 mg Tablet 5 mg PO DAILY Qty: 90 0RF Protocol: Hold for SBP< HOLD for SBP < : 90 benzonatate 100 mg Capsule 200 mg PO TID PRN (Reason: Cough) Qty: 30 0RF doxycycline monohydrate 100 mg Capsule 100 mg PO Q12H Qty: 6 0RF Presents today, feeling better. Completed prednisone. Cont to use tessalon PRN. Admits cough is better. Completed ABT. Cont to get winded easy Appt with Dr Head 09/18/23 Chronic swelling of bilat lower ext; does not weight self at home. Feels the edema is worse since returning home. Taking lasix when he doesnt have cramps; so not taking every day. Was RXd norvasc for uncontrolled BP. When he returned home, he self d/c his Metoprolol Im not taking both. I cannot afford it. Its one or the other . I asked if he wanted asst to help w/ his out of pocket costs for meds there's no way because i have for life . Reviewed his med list -- seems the inhalers and eliquis are the big ticket items. I explained CHF. He was not aware he had CHF. Lots of time spent educating him on this. Offered to send him to [facility] for GDMT. He declined. what, all im going to do is spend all of my time at the doctors. no way . Annual appts w/ [facility]. Next appt 06/2024. [facility] Medical History COPD with acute exacerbation Chronic lung disease Tubular adenoma of colon (~2005) COPD (chronic obstructive pulmonary disease) Pulmonary nodules RAYMOND on CPAP Chronic rhinitis Asthma-COPD overlap syndrome PAF (paroxysmal atrial fibrillation) (~2017) Echocardiogram abnormal Encounter for screening for lung cancer Edema leg Venous insufficiency of both lower extremities AC (acromioclavicular) joint arthritis BPH (benign prostatic hyperplasia) Seasonal allergies Hyperlipidemia Surgical History History of appendectomy History of esophagogastroduodenoscopy (EGD) History of total left hip replacement (~2019) History of repair of right rotator cuff (~2017) History of nasal septoplasty (~2008) History of colonoscopy History of cataract (~2009) Family History Father No problems noted. Mother CAD (coronary artery disease) CHF (congestive heart failure) HTN (hypertension) Brother No problems noted. Brother No problems noted. Sister No problems noted. Sister No problems noted. Sister No problems noted. Son No problems noted. Son No problems noted. Social History Household Members: Spouse, Family and Children Housing: House Do you presently have visiting nurse or other home services: No Alcohol intake: current Alcohol intake frequency: holidays/special occasions only Patient Tobacco Use Status: Former Tobacco user Quit Date: 13 years ago Tobacco use type: Cigarette Years Smoked: 40 years e-Cigarette/Vaping Use: Former Use Second Hand Smoke Exposure: No Advance Directives Date on File: 10/10/22 service: No Current occupational status: retired Cognitive needs: No Hearing needs: No Vision needs: No Questionnaire Thrive Questionnaire Date Thrive assessed: 08/31/23 STEVEN-7 AMB Questionnaire STEVEN-7 Date STEVEN - 7 assessed: 06/27/23 Source: Developed by Drs. Kwame William, Cayla Candelario, Damian Lee and colleagues, with an educational maria g from [employer] Review of Systems Const All systems reviewed & are unremarkable except as noted in HPI and below Physical exam (Primary Care) Vital Signs: Last Vital Signs Pulse 98 09/12/23 11:27 Resp 15 09/12/23 11:27 BP 136/50 L 09/12/23 11:27 Pulse Ox 99 09/12/23 11:27 Oxygen Delivery Method Room Air 09/12/23 11:27 BMI result Body Mass Index 31.9 Tobacco/Smoking Status: Tobacco use Status Tobacco use date assessed 06/27/23 09/12/23 11:38 Patient Tobacco Use Status Former Tobacco user 09/12/23 11:38 Tobacco use type Cigarette 09/12/23 11:38 e-Cigarette/Vaping Use Former Use 09/12/23 11:38 Thrive Assessment: Date of Thrive Assessment Date Thrive assessed 08/31/23 09/12/23 11:38 Const Other: awake alert RRR, 3/6 systolic murmur LS dim throughout, faint exp wheezes + 2 edema BLE, skin intact Assessment and Plan Assessment & Plan (1) Hospital discharge follow-up: Code(s): Z09 - Encounter for follow-up examination after completed treatment for conditions other than malignant neoplasm (2) Hypertension: Code(s): I10 - Essential (primary) hypertension Qualifiers: Hypertension type: primary hypertension Qualified Code(s): I10 - Essential (primary) hypertension (3) CHF (congestive heart failure): Code(s): I50.9 - Heart failure, unspecified Qualifiers: Heart failure type: diastolic Heart failure chronicity: chronic Qualified Code(s): I50.32 - Chronic diastolic (congestive) heart failure Plan: Difficult hospital discharge follow up today. Given the edema I have advised him to discontinue the amlodipine and restart his metoprolol. He reports that he has this at home and does not need a new prescription. I offered to assist him with prescription co-pay cost he declined. I offered to refer him to cardiology where he has no co-pay for the office visit to see if we can optimize his medical management of heart failure he also declined. He does have a close follow up with his primary care scheduled September 25. I have advised him to keep this appointment. He should have a blood pressure recheck and re-evaluation of his edema. Ideally his diuretic should be given daily. However he tells me that his primary care told him he did not have to do that he is going to take it the way that his primary care advised him to do. He knows he is at risk for readmission to the hospital for not following medical advice. He is accepting of this risk. Patient Instructions: CHF/HTN/COPD Goals: Decrease swelling in lower legs; Control blood pressure. Take all meds as directed Barriers: Financial; education. Coding Level of Care Code TCM High MDM <= 14 days Diagnoses Hospital discharge follow-up Z09 Primary hypertension I10 Hypertension type: primary hypertension Chronic diastolic congestive heart failure I50.32 Heart failure type: diastolic Heart failure chronicity: chronic
[2023-09-12 11:27] VITALS: BP 136/50; PULSE 98; RESP 15; O2SAT 99; BMI 31.9
== END 2023-09-12 12:01 | disposition home or self-care (01) ==
PROVIDERS: PCP Family Medicine; Visit Provider Nurse Practitioner Family
DX: I11.0 Hypertensive heart disease with heart failure (principal); I50.32 Chronic diastolic (congestive) heart failure; Z09 Encounter for follow-up examination after completed treatment for conditions other than malignant neoplasm
CPT/HCPCS: 99495

== ENCOUNTER 2023-09-16 11:46 | Outpatient (REF) | payer MEDICARE, OTHER, SELFPAY ==
--- NOTE | ~2023-09-16 | XR_ITS ---
EXAMINATION: XR CHEST CLINICAL INFORMATION: Follow-up airspace disease COMPARISON: 08/30/2023 TECHNIQUE: 2 views of the chest were obtained. FINDINGS: The current examination lungs are clear cardiomediastinal silhouette is normal. There is no pleural effusion seen. XR/XR chest 2V IMPRESSION: No active cardiopulmonary disease
== END 2023-09-16 11:47 | disposition home or self-care (01) ==
LOC: HO.XRAY 11:46
PROVIDERS: PCP Family Medicine; Visit Provider Hospitalist
DX: J44.1 Chronic obstructive pulmonary disease with (acute) exacerbation (principal)
CPT/HCPCS: 71046

== ENCOUNTER 2023-09-18 09:51 | Outpatient (AMB) | payer MEDICARE, OTHER, SELFPAY ==
[2023-09-18 10:10] VITALS: PULSE 71; O2SAT 95; BMI 31.0
--- NOTE | 2023-09-18 10:10 | A.OFFVIS_ITS ---
Vital Signs 09/18/23 10:10 Height 5 ft 9 in Weight 210 lb BMI 31.0 Pulse 71 Pulse Source Pulse Oximeter Pulse Oximetry (%) 95 Oxygen Delivery Method Room Air Intake Visit Reasons: Obstructive sleep apnea Allergies watermelon [WATERMELON] Allergy (Severe, Verified 09/18/23 10:11) ANAPHYLAXIS Iodinated Contrast Media [IV CONTRAST] Allergy (Intermediate, Verified 09/18/23 10:11) LIGHT HEADED AND SHORTNESS OF BREATH HPI Comments Details: Patient is a 68 y/o man with history of underlying pulmonary nodules, RAYMOND on CPAP, asthma COPD overlap syndrome, tracheobronchomalacia in addition to hypersensitivity pneumonitis due to multiple exposures especially at while he was working. He has been using CPAP therapy the CPAP therapy has been very affecting beneficial. The CPAP therapy he uses every night for more than 4 hours. Recently he did have a CT scan of his chest for the lung cancer screening program and is nodular densities have resolved which is very reassuring. He is scheduled for the CT scan in a year's time. I am hopeful that we can decrease the amount of Xopenex that he is using and then hopefully decrease the amount of budesonide that he is using. His CPAP therapy has been affecting beneficial. He has been getting supplies through [employer] now regularly. His CPAP therapy he does use for more than 4 hours a night. He has lost about 30 lb. He still on Daliresp that is likely contributing to that. If he co 05/24/2022 the patient has a telephone visit today. Several days ago he started developing worsening cough in addition to fevers. He did test positive for COVID about 3-4 days ago. He was not placed on PACS Flovent. Currently he is on his respiratory therapy. He is also on his baseline prednisone. He is complaining of productive cough with green mucus. Moderate severity. His fever is a little better. He has been having significant wheezing and chest tightness. He has been using his nebulizer therapy throughout the day. Will go ahead and place him on a prednisone taper in addition to start him on Levaquin. He knows the adverse effects including tendinitis. If he has any adverse effects he is to call. Otherwise if his respiratory status gets worse need to go to the ER for further evaluation. 09/13/2022 the patient is here for pulmonary follow-up visit. Overall the patient is doing better. He has been on the test prior injections now for few months and appear to be working better for him. He still can get off the prednisone. He recently ran out of prednisone his breathing got worse again. He had been down to 10 mg alternating with 20 mg daily. I did see him in a prednisone for him to slowly wean down from 20 mg which I am hopeful that he can wean slowly down to 10 mg in due time. He will continue with current respiratory therapy. He continues uses CPAP at nighttime. CPAP therapy continues to be affecting beneficial and he does use it for more than 4 hours a night. 01/03/2023 the patient is here for pulmonary follow-up visit. The patient had been hospitalized with worsening respiratory symptoms. He had been on a prednisone taper. However, now is completely off. He has been using his nebulized therapy in addition to his respiratory medications. Continues to have chest tightness and wheezing. He is also having coughing. Moderate severity. The patient has been on multiple medication now on biologic therapy. The only other option to try to improve his significant bronchospasms would be to try theophylline. He does have a history of atrial fibrillation so and to be careful with the dose. Will start him on a very small dose and see if he can tolerated. The hope is with the low-dose theophylline he may be able to be on less amount of prednisone. The patient also continues uses CPAP. He has not been getting supplies the of from the [employer], I did send a message to the [employer] and did fill out another script. The CPAP therapy has been very affecting beneficial for him. He does use it for more than 4 hours. However, without supplies the patient is not able to use it effectively. In the office we also reviewed his recent CT scan that he had 12/18/2022. There is interval improvement of the significant bronchiolitis and nodular densities appreciated on the CT scan back in he was in the hospital in September/October. 03/14/2023 the patient is here for a pulmonary follow-up visit. The patient has been having hard time with his breathing. Having significant chest tightness and wheezing. Moderate to severe. The patient was started on theophylline during the last visit. Although he started developing some uncomfortable symptoms with nausea and headaches and therefore the patient has stopped it. Once she stopped the medication symptoms her side effects got better. He is als o been dealing with some cardiac medication changes. The patient also has been off the prednisone altogether specially because of his other comorbidities. He also has been on the biologic therapy, Tezspire. still having hard time with his breathing. He has significant chest tightness and wheezing on exam. We did provide him Solu-Medrol because of significant wheezing. He is going to have to start prednisone again. Will try to keep him on a low dose. 04/18/2023 the patient is here for a pulmonary follow-up visit. He is doing a lot better. He is back on his regular maintenance therapies which appeared to be effective in beneficial. He has been on a very low dose of prednisone of 10 mg daily. He is wondering if he can cut back a little bit. I did give him instructions on how to go very slowly down on the medication. He has been on the Tezspire biologic injections every month and appears to be working well for him. He is also continued the nebulized therapy at least twice a day. The patient also continues uses CPAP at nighttime. CPAP therapy continues to be affecting beneficial. He does use it for more than 4 hours a night. His CPAP machine is now greater than 7 years old. Although still working well. Therefore no need to replace at this time. Although will reassess during his next visit. 08/28/2023 the patient is here for sick visit. He is having hard time with his breathing. The patient recently call the office with worsening risk was sent to the ER. He wants admitted on August 04 to the hospital. He had a chest x-ray demonstrating bilateral pneumonia. This is superimposed on his underlying interstitial lung disease. He was treated with prednisone addition to antibiotics subsequently discharged. He did not require oxygen upon discharge. The patient has been weaning off the prednisone down to 10 mg of prednisone having hard time with his breathing. He is then in bed now for about 3 days. His coughing has gotten worse expectorating discolored mucus. Denies any hemoptysis. In the office he does have significant wheezing chest tightness. Will go ahead and give him a couple treatments of DuoNeb. Hopefully we can improve his respiratory symptoms we can start antibiotics and give him additional Solu-Medrol and prednisone for home. If however he does not improve after the breathing treatments then will consider transferring him to the ER. 09/18/2023 the patient is here for a pulmonary follow-up visit. The patient recently was hospitalized because of the bad bronchopneumonia and asthma exacerbation. He is now recovering. He feels a little better although starting to get chest tightness again. He has been using prednisone 20 mg daily in his also been using all his respiratory medicines. He is also developing some lower extremity edema swelling redness. Is tender to the touch. It appears to be bilateral cellulitis. I did review his chest x-ray he did have run this is a week ago and compared to the x-ray he had when he was admitted to the hospital still demonstrates hazy opacities suggesting some component of pneumonitis. Therefore will increase the prednisone and also will keep him on some antibiotics to treat him for cellulitis. He will return in 3-4 weeks. If he has any worsening symptoms he will call prior to that visit. [facility] Medical History COPD with acute exacerbation Chronic lung disease Tubular adenoma of colon (~2005) COPD (chronic obstructive pulmonary disease) Pulmonary nodules RAYMOND on CPAP Chronic rhinitis Asthma-COPD overlap syndrome PAF (paroxysmal atrial fibrillation) (~2017) Echocardiogram abnormal Encounter for screening for lung cancer Edema leg Venous insufficiency of both lower extremities AC (acromioclavicular) joint arthritis BPH (benign prostatic hyperplasia) Seasonal allergies Hyperlipidemia Surgical History History of appendectomy History of esophagogastroduodenoscopy (EGD) History of total left hip replacement (~2019) History of repair of right rotator cuff (~2017) History of nasal septoplasty (~2008) History of colonoscopy History of cataract (~2009) Family History Father No problems noted. Mother CAD (coronary artery disease) CHF (congestive heart failure) HTN (hypertension) Brother No problems noted. Brother No problems noted. Sister No problems noted. Sister No problems noted. Sister No problems noted. Son No problems noted. Son No problems noted. Social History Household Members: Spouse, Family and Children Housing: House Do you presently have visiting nurse or other home services: No Alcohol intake: current Alcohol intake frequency: holidays/special occasions only Patient Tobacco Use Status: Former Tobacco user Quit Date: 13 years ago Tobacco use type: Cigarette Years Smoked: 40 years e-Cigarette/Vaping Use: Former Use Second Hand Smoke Exposure: No Advance Directives Date on File: 10/10/22 service: No Current occupational status: retired Cognitive needs: No Hearing needs: No Vision needs: No Review of Systems Const Reports daytime sleepiness, Reports difficulty sleeping, Reports fatigue and Reports weight gain Eyes Denies change in vision ENT Reports nasal congestion, Reports nasal discharge and Reports sore throat Card Denies chest pain and Reports dyspnea Resp Reports chest congestion, Reports cough, Denies hemoptysis, Reports dyspnea and Reports wheezing GI Reports no additional complaints Musc Reports no additional complaints Skin/Breast Denies rash Neuro Reports no additional complaints Psych Reports no additional complaints Endo Reports fatigue and Denies heat intolerance Kelvin/Lymph Denies easy bleeding, Denies easy bruising and Denies lymphadenopathy Aller/Immun Reports wheezing Physical Exam Vital Signs: Last Vital Signs Pulse 71 09/18/23 10:10 Pulse Ox 95 09/18/23 10:10 Oxygen Delivery Method Room Air 09/18/23 10:10 BMI result Body Mass Index 31.0 Const General: comfortable and alert Orientation/consciousness: patient oriented x3 Eyes Pupils: Equal, round and reactive pupils present Neck Neck: Yes normal visual inspection, Yes full ROM and Yes no lymphadenopathy Chest Chest palpation & inspection: normal inspection of the chest Resp Effort & Inspection: prolonged expiratory phase Auscultation: rhonchi, wheezes and diminished lung sounds Cardio Rate: regular rate Rhythm: regular rhythm Heart sounds: S1 normal heart sound present and S2 normal heart sound present GI Palpation (GI): Soft to palpation and nontender Auscultation: normal bowel sounds General: Yes no CVA tenderness Back/Spine/Pelvis Back: no CVA tenderness Skin General skin exam: no rashes or lesions noted Neuro General: patient oriented x3 Cranial nerves: Yes Equal, round and reactive pupils present Extrem General: Yes no clubbing, cyanosis or edema Assessment & Plan Assessment & Plan (1) Bronchopneumonia: Code(s): J18.0 - Bronchopneumonia, unspecified organism Category: Medical (2) Asthma-COPD overlap syndrome: Code(s): J44.9 - Chronic obstructive pulmonary disease, unspecified Category: Medical (3) COPD (chronic obstructive pulmonary disease): Code(s): J44.9 - Chronic obstructive pulmonary disease, unspecified Category: Medical Qualifiers: COPD type: COPD with acute exacerbation Qualified Code(s): J44.1 - Chronic obstructive pulmonary disease with (acute) exacerbation (4) Pulmonary nodules: Code(s): R91.8 - Other nonspecific abnormal finding of lung field Category: Medical (5) RAYMOND on CPAP: Code(s): G47.33 - Obstructive sleep apnea (adult) (pediatric); Z99.89 - Dependence on other enabling machines and devices Category: Medical (6) Chronic rhinitis: Code(s): J31.0 - Chronic rhinitis Category: Medical Plan increased Prednisone 40mg daily with slow taper start Doxycycline for cellulitis continue Tezspire [id number] continue Brovana/BUdesonide BID ANN as needed continue APAP F/U 2 weeks Medications: New prednisone 40 mg (4 x 10 mg) PO DAILY 120 tabs 1RF 30 days Refilled arformoterol (Brovana) 15 mcg (2 mL) inhalation BID 360 mL 3RF J44.1 - Chronic obstructive pulmonary disease with (acute) exacerbation levalbuterol HCl 1.25 mg (3 mL) inhalation BID 540 mL 3RF 90 days J44.9 - Chronic obstructive pulmonary disease, unspecified Coding Level of Care Code Est Pt Level 4 (78574) Diagnoses Bronchopneumonia J18.0 Asthma-COPD overlap syndrome J44.9 Chronic obstructive pulmonary disease with acute exacerbation J44.1 COPD type: COPD with acute exacerbation Pulmonary nodules R91.8 RAYMOND on CPAP G47.33; Z99.89 Chronic rhinitis J31.0 Time Spent (min) 17
== END 2023-09-18 10:30 | disposition home or self-care (01) ==
PROVIDERS: PCP Family Medicine; Visit Provider Hospitalist
DX: J18.0 Bronchopneumonia, unspecified organism (principal); J44.9 Chronic obstructive pulmonary disease, unspecified; J44.1 Chronic obstructive pulmonary disease with (acute) exacerbation; R91.8 Other nonspecific abnormal finding of lung field; G47.33 Obstructive sleep apnea (adult) (pediatric); Z99.89 Dependence on other enabling machines and devices; J31.0 Chronic rhinitis
CPT/HCPCS: 99214

== ENCOUNTER → 2023-09-18 09:51 | Outpatient (BNVA) | payer MEDICARE, OTHER, SELFPAY | PROVIDERS: PCP Family Medicine; Visit Provider Hospitalist | DX: J44.1 Chronic obstructive pulmonary disease with (acute) exacerbation (principal); J18.0 Bronchopneumonia, unspecified organism; J31.0 Chronic rhinitis; R91.8 Other nonspecific abnormal finding of lung field; G47.33 Obstructive sleep apnea (adult) (pediatric); Z99.89 Dependence on other enabling machines and devices | CPT/HCPCS: 99212 ==

== ENCOUNTER 2023-09-26 10:39 | Outpatient (AMB) | payer MEDICARE, OTHER, SELFPAY ==
[2023-09-26 10:44] VITALS: BP 120/58; PULSE 65; O2SAT 97; BMI 32.3
--- NOTE | 2023-09-26 10:44 | A.OFFPC_ITS ---
Vital Signs 09/26/23 10:44 Height 5 ft 9 in Weight 219 lb BMI 32.3 BP 120/58 L Blood Pressure Location Lt brachial Position Sitting Pulse 65 Pulse Source Pulse Oximeter Pulse Oximetry (%) 97 Oxygen Delivery Method Room Air Intake Visit Reasons: f/u hypertension, renal failure Intake Note: Patient is here for follow up on hypertension and renal failure. Allergies watermelon [WATERMELON] Allergy (Severe, Verified 09/26/23 10:54) ANAPHYLAXIS Iodinated Contrast Media [IV CONTRAST] Allergy (Intermediate, Verified 09/26/23 10:54) LIGHT HEADED AND SHORTNESS OF BREATH Medication List - Last Reconciled 09/26/23 by Guilherme Mcallister MD albuterol sulfate 90 mcg/actuation 2 puffs inhalation QID PRN amlodipine 5 mg See Protocol PO DAILY apixaban (Eliquis) 5 mg PO BID arformoterol (Brovana) 15 mcg (2 mL) inhalation BID atorvastatin 80 mg PO DAILY benzonatate 200 mg (2 x 100 mg) PO TID PRN budesonide 0.5 mg (2 mL) inhalation BID bupropion HCl 150 mg (2 x 75 mg) PO BID 90 days CPAP (CPAP Machine/Device) As directed dronedarone (Multaq) 400 mg PO BID 90 days furosemide 20 mg PO Q48H levalbuterol HCl 1.25 mg (3 mL) inhalation BID 90 days metoprolol succinate ER 100 mg PO BEDTIME montelukast 10 mg PO DAILY nebulizers As directed prednisone 40 mg (4 x 10 mg) PO DAILY 30 days roflumilast 500 mcg PO DAILY tamsulosin (Flomax) 0.4 mg PO BID 90 days tezepelumab-ekko (Tezspire) 210 mg subcut Q4W theophylline ER 300 mg PO Q48H Tobacco use date assessed: 09/26/23 Fall risk assessment: No Falls in past year Last assessed Fall Risk: 09/26/23 Dental Screening Dental Screen Date: 09/26/23 Did you have a dental visit in the last 12 months?: Yes Did you have a dental problem in the last 6 months where you did not have access to dental care?: No Was dental information given to patient?: Patient has dentist HPI f/u hypertension, renal failure HPI Details Patient?returns?to?follow- up?hypertension?and?also?some?chronic?renal?failure. Had?had?acute?on?chronic?renal?failure?and?lisinopril?was?discontinued.??Switche d?this?to?metoprolol. He?had?discontinued?metoprolol? and?blood?pressure?was?rather?high.??He?was?started?on?amlodipine?it?caused?sign ificant?lower?extremity?edema?so?this?was?discontinued?again?and?he?was?restarte d?on?metoprolol. Apparently,?he?is?back? on?both?of?these?medications?and?tolerating?them?though?he?does?have?increased?l ower?extremity?edema. Blood?pressure?today?120/58 Creatinine?had?risen?above?2?and?then?was?receding?after?stopping?lisinopril. Now?down?to?baseline?of?around?1.4?or?1.5. He?continues?furosemide?for?lower?extremity?edema and CHF. [facility] Medical History Chronic lung disease COPD with acute exacerbation Chronic lung disease Tubular adenoma of colon (~2005) COPD (chronic obstructive pulmonary disease) Pulmonary nodules RAYMOND on CPAP Chronic rhinitis Asthma-COPD overlap syndrome PAF (paroxysmal atrial fibrillation) (~2017) Echocardiogram abnormal Encounter for screening for lung cancer Edema leg Venous insufficiency of both lower extremities AC (acromioclavicular) joint arthritis BPH (benign prostatic hyperplasia) Seasonal allergies Hyperlipidemia Surgical History History of appendectomy History of esophagogastroduodenoscopy (EGD) History of total left hip replacement (~2019) History of repair of right rotator cuff (~2017) History of nasal septoplasty (~2008) History of colonoscopy History of cataract (~2009) Family History (Updated 09/26/23 @ 11:15 by Jaz Van CMA) Father No problems noted. Mother CAD (coronary artery disease) CHF (congestive heart failure) HTN (hypertension) Brother No problems noted. Brother No problems noted. Sister No problems noted. Sister No problems noted. Sister Mental health disorder Son No problems noted. Son No problems noted. Social History Household Members: Spouse, Family and Children Housing: House Do you presently have visiting nurse or other home services: No Alcohol intake: current Alcohol intake frequency: holidays/special occasions only Patient Tobacco Use Status: Former Tobacco user Quit Date: 13 years ago Tobacco use type: Cigarette Years Smoked: 40 years e-Cigarette/Vaping Use: Former Use Second Hand Smoke Exposure: No Advance Directives Date on File: 10/10/22 service: No Current occupational status: retired Cognitive needs: No Hearing needs: No Vision needs: No Questionnaire Thrive Questionnaire Date Thrive assessed: 08/31/23 STEVEN-7 AMB Questionnaire STEVEN-7 Date STEVEN - 7 assessed: 06/27/23 Source: Developed by Drs. Kwame William, Cayla Candelario, Damian Lee and colleagues, with an educational maria g from [employer]. Review of Systems Const Denies chills, Denies fatigue, Denies fever(s), Denies headache(s) and Denies weakness ENT Denies dizziness and Denies headache(s) Card Denies chest pain, Denies lightheadedness, Denies dyspnea and Denies other (Palpitations) Resp Denies cough, Denies dyspnea, Denies wheezing and Denies other ( shortness of breath) Musc Denies numbness and Denies tingling Neuro Denies dizziness, Denies headache(s), Denies numbness, Denies tingling, Denies paresthesias and Denies weakness Psych Denies anxiety and Denies depression Endo Denies fatigue Kelvin/Lymph Details: Lower?extremity?swelling Aller/Immun Denies wheezing Physical exam (Primary Care) Vital Signs: Last Vital Signs Pulse 65 09/26/23 10:44 BP 120/58 L 09/26/23 10:44 Pulse Ox 97 09/26/23 10:44 Oxygen Delivery Method Room Air 09/26/23 10:44 BMI result Body Mass Index 32.3 Tobacco/Smoking Status: Tobacco use Status Tobacco use date assessed 09/26/23 09/26/23 10:57 Patient Tobacco Use Status Former Tobacco user 09/26/23 10:57 Tobacco use type Cigarette 09/26/23 10:57 e-Cigarette/Vaping Use Former Use 09/26/23 10:57 Thrive Assessment: Date of Thrive Assessment Date Thrive assessed 08/31/23 09/26/23 10:57 Const General: no acute distress and well developed Nutritional Appearance: well nourished Orientation/consciousness: patient oriented x3 [facility] Head: Yes normocephalic and Yes atraumatic Eyes General: appearance normal, both eyes and all related structures Pupils: Equal, round and reactive pupils present EOM: EOMs intact bilaterally Resp Effort & Inspection: normal respiratory effort Auscultation: clear to auscultation bilaterally Cardio Rate: regular rate Rhythm: regular rhythm Heart sounds: S1 normal heart sound present, S2 normal heart sound present, no gallops, no murmurs and no rubs Neuro General: patient oriented x3 and gait normal Cranial nerves: Yes Equal, round and reactive pupils present Extrem Other: 2+?bilateral?lower?extremity?edema Psych Affect: normal affect Assessment and Plan Assessment & Plan (1) Hypertension: Code(s): I10 - Essential (primary) hypertension Qualifiers: Hypertension type: primary hypertension Qualified Code(s): I10 - Essential (primary) hypertension Plan: Blood?pressure?appears?well?controlled.??Goal?is?less?than?130/80. Continue?current?medication?regimen (2) Renal failure: Code(s): N19 - Unspecified kidney failure Plan: Ongoing?mild?chronic?renal?failure. Significant?lower?extremity?edema?and?some?CHF.??He?is?us ing?furosemide?and?medications?seem?to?be?affecting?his?renal?function. He?would?like?to?see?the?gearcase assembler?to?discuss?renal?failure?and?lower?extremi ty?edema.??Referral?made (3) Swelling of lower extremity: Code(s): M79.89 - Other specified soft tissue disorders Plan: He?will?continue?using?his?furosemide?for?now. Elevate?legs He?says?he?can?not?use?compression?stockings?but?he?recalled?at?this?visit?that? he?has?some?pneumatic?compression?boots?at?home.??He?will?get?these?and?begin? to?use?them?again?when?he?has?worsened?lower?extremity?edema. Orders: Orders Comprehensive Met. Panel Today M79.89 - Other specified soft tissue disorders Referrals Nephrology Referral N19 - Unspecified kidney failure Medications: Changed From furosemide 20 mg PO Q48H To furosemide 20 mg PO Q48H 90 days 45 tabs 2RF Coding Level of Care Code Est Pt Level 4 (58298) Diagnoses Primary hypertension I10 Hypertension type: primary hypertension Renal failure N19 Swelling of lower extremity M79.89
== END 2023-09-26 11:53 | disposition home or self-care (01) ==
PROVIDERS: PCP Family Medicine; Visit Provider Family Medicine
DX: I10 Essential (primary) hypertension (principal); N19 Unspecified kidney failure; M79.89 Other specified soft tissue disorders
CPT/HCPCS: 99214

== ENCOUNTER 2023-10-07 09:57 | Outpatient (AMB) | payer MEDICARE, OTHER, SELFPAY ==
--- NOTE | 2023-10-07 10:25 | A.OFFVIS_ITS ---
Vital Signs 10/07/23 10:26 Height 5 ft 9 in Weight 220 lb BMI 32.5 Pulse 90 Pulse Source Pulse Oximeter Pulse Oximetry (%) 95 Oxygen Delivery Method Room Air Intake Visit Reasons: Obstructive sleep apnea Rail Bonder Required: No Allergies watermelon [WATERMELON] Allergy (Severe, Verified 10/07/23 13:53) ANAPHYLAXIS Iodinated Contrast Media [IV CONTRAST] Allergy (Intermediate, Verified 10/07/23 13:53) LIGHT HEADED AND SHORTNESS OF BREATH HPI Comments Details: Patient is a 68 y/o man with history of underlying pulmonary nodules, RAYMOND on CPAP, asthma COPD overlap syndrome, tracheobronchomalacia in addition to hypersensitivity pneumonitis due to multiple exposures especially at while he was working. He has been using CPAP therapy the CPAP therapy has been very affecting beneficial. The CPAP therapy he uses every night for more than 4 hours. Recently he did have a CT scan of his chest for the lung cancer screening program and is nodular densities have resolved which is very reassuring. He is scheduled for the CT scan in a year's time. I am hopeful that we can decrease the amount of Xopenex that he is using and then hopefully decrease the amount of budesonide that he is using. His CPAP therapy has been affecting beneficial. He has been getting supplies through [employer] now regularly. His CPAP therapy he does use for more than 4 hours a night. He has lost about 30 lb. He still on Daliresp that is likely contributing to that. If he co 08/28/2023 the patient is here for sick visit. He is having hard time with his breathing. The patient recently call the office with worsening risk was sent to the ER. He wants admitted on August 04 to the hospital. He had a chest x-ray demonstrating bilateral pneumonia. This is superimposed on his underlying interstitial lung disease. He was treated with prednisone addition to antibiotics subsequently discharged. He did not require oxygen upon discharge. The patient has been weaning off the prednisone down to 10 mg of prednisone having hard time with his breathing. He is then in bed now for about 3 days. His coughing has gotten worse expectorating discolored mucus. Denies any hemoptysis. In the office he does have significant wheezing chest tightness. Will go ahead and give him a couple treatments of DuoNeb. Hopefully we can improve his respiratory symptoms we can start antibiotics and give him addit ional Solu-Medrol and prednisone for home. If however he does not improve after the breathing treatments then will consider transferring him to the ER. 09/18/2023 the patient is here for a pulmonary follow-up visit. The patient recently was hospitalized because of the bad bronchopneumonia and asthma exacerbation. He is now recovering. He feels a little better although starting to get chest tightness again. He has been using prednisone 20 mg daily in his also been using all his respiratory medicines. He is also developing some lower extremity edema swelling redness. Is tender to the touch. It appears to be bilateral cellulitis. I did review his chest x-ray he did have run this is a week ago and compared to the x-ray he had when he was admitted to the hospital still demonstrates hazy opacities suggesting some component of pneumonitis. Therefore will increase the prednisone and also will keep him on some antibiotics to treat him for cellulitis. He will return in 3-4 weeks. If he has any worsening symptoms he will call prior to that visit. 10/07/2023 the patient is here for a pulmonary follow-up visit. The patient is feeling lot better. He is recovering now closer to his baseline. He is down to 20 mg of prednisone. He would like to come off. However, will need to very careful as we wean off slowly. Therefore will decrease by 5 mg every 7-10 days. Hopefully he can come off completely. He continues on his respiratory therapy with good effect. He also continues with CPAP using more than 4 hours a night. The CPAP therapy continues to be affecting beneficial. The lower extremity edema as a little better he continues to have some degree of erythema but it does not look infected anymore. He did complete the doxycycline. Otherwise patient is doing better so therefore we will continue his current respiratory regimen and hopefully we can wean off completely from the prednisone. Will follow-up in 4 months. [facility] Medical History Chronic lung disease COPD with acute exacerbation Chronic lung disease Tubular adenoma of colon (~2005) COPD (chronic obstructive pulmonary disease) Pulmonary nodules RAYMOND on CPAP Chronic rhinitis Asthma-COPD overlap syndrome PAF (paroxysmal atrial fibrillation) (~2017) Echocardiogram abnormal Encounter for screening for lung cancer Edema leg Venous insufficiency of both lower extremities AC (acromioclavicular) joint arthritis BPH (benign prostatic hyperplasia) Seasonal allergies Hyperlipidemia Surgical History History of appendectomy History of esophagogastroduodenoscopy (EGD) History of total left hip replacement (~2019) History of repair of right rotator cuff (~2017) History of nasal septoplasty (~2008) History of colonoscopy History of cataract (~2009) Family History Father No problems noted. Mother CAD (coronary artery disease) CHF (congestive heart failure) HTN (hypertension) Brother No problems noted. Brother No problems noted. Sister No problems noted. Sister No problems noted. Sister Mental health disorder Son No problems noted. Son No problems noted. Social History Household Members: Spouse, Family and Children Housing: House Do you presently have visiting nurse or other home services: No Alcohol intake: current Alcohol intake frequency: holidays/special occasions only Patient Tobacco Use Status: Former Tobacco user Quit Date: 13 years ago Tobacco use type: Cigarette Years Smoked: 40 years e-Cigarette/Vaping Use: Former Use Second Hand Smoke Exposure: No Advance Directives Date on File: 10/10/22 service: No Current occupational status: retired Cognitive needs: No Hearing needs: No Vision needs: No Review of Systems Const Reports daytime sleepiness, Reports difficulty sleeping, Reports fatigue and Reports weight gain Eyes Denies change in vision ENT Reports nasal congestion, Reports nasal discharge and Reports sore throat Card Denies chest pain and Reports dyspnea on exertion Resp Reports cough, Denies hemoptysis, Reports dyspnea on exertion and Reports wheezing GI Reports no additional complaints Musc Reports no additional complaints Skin/Breast Denies rash Neuro Reports no additional complaints Psych Reports no additional complaints Endo Reports fatigue and Denies heat intolerance Kelvin/Lymph Denies easy bleeding, Denies easy bruising and Denies lymphadenopathy Aller/Immun Reports wheezing Physical Exam Vital Signs: Last Vital Signs Pulse 90 10/07/23 10:26 Pulse Ox 95 10/07/23 10:26 Oxygen Delivery Method Room Air 10/07/23 10:26 BMI result Body Mass Index 32.5 Const General: comfortable and alert Orientation/consciousness: patient oriented x3 Eyes Pupils: Equal, round and reactive pupils present Neck Neck: Yes normal visual inspection, Yes full ROM and Yes no lymphadenopathy Chest Chest palpation & inspection: normal inspection of the chest Resp Effort & Inspection: prolonged expiratory phase Auscultation: no rhonchi, wheezes and diminished lung sounds Cardio Rate: regular rate Rhythm: regular rhythm Heart sounds: S1 normal heart sound present and S2 normal heart sound present GI Palpation (GI): Soft to palpation and nontender Auscultation: normal bowel sounds General: Yes no CVA tenderness Back/Spine/Pelvis Back: no CVA tenderness Skin General skin exam: no rashes or lesions noted Neuro General: patient oriented x3 Cranial nerves: Yes Equal, round and reactive pupils present Extrem General: Yes no clubbing, cyanosis or edema Assessment & Plan Assessment & Plan (1) Asthma-COPD overlap syndrome: Code(s): J44.9 - Chronic obstructive pulmonary disease, unspecified Category: Medical (2) COPD (chronic obstructive pulmonary disease): Code(s): J44.9 - Chronic obstructive pulmonary disease, unspecified Category: Medical Qualifiers: COPD type: chronic bronchitis Chronic bronchitis type: mucopurulent Qualified Code(s): J41.1 - Mucopurulent chronic bronchitis (3) Pulmonary nodules: Code(s): R91.8 - Other nonspecific abnormal finding of lung field Category: Medical (4) RAYMOND on CPAP: Code(s): G47.33 - Obstructive sleep apnea (adult) (pediatric); Z99.89 - Dependence on other enabling machines and devices Category: Medical (5) Chronic rhinitis: Code(s): J31.0 - Chronic rhinitis Category: Medical Plan Prednisone with slow taper continue Tezspire [id number] continue Brovana/BUdesonide BID ANN as needed continue APAP, adjusted pressures 6-12 F/U 3-4 months Medications: New albuterol sulfate 90 mcg/actuation 2 puffs inhalation QID PRN 8.5 grams 11RF Shortness Of Breath Coding Level of Care Code Est Pt Level 4 (18686) Diagnoses Asthma-COPD overlap syndrome J44.9 Mucopurulent chronic bronchitis J41.1 COPD type: chronic bronchitis Chronic bronchitis type: mucopurulent Pulmonary nodules R91.8 RAYMOND on CPAP G47.33; Z99.89 Chronic rhinitis J31.0 Time Spent (min) 17
[2023-10-07 10:26] VITALS: PULSE 90; O2SAT 95; BMI 32.5
== END 2023-10-07 10:49 | disposition home or self-care (01) ==
PROVIDERS: PCP Family Medicine; Visit Provider Hospitalist
DX: J41.1 Mucopurulent chronic bronchitis (principal); R91.8 Other nonspecific abnormal finding of lung field; G47.33 Obstructive sleep apnea (adult) (pediatric); Z99.89 Dependence on other enabling machines and devices; J31.0 Chronic rhinitis
CPT/HCPCS: 99214

== ENCOUNTER → 2023-10-07 09:57 | Outpatient (BNVA) | payer MEDICARE, OTHER, SELFPAY | PROVIDERS: PCP Family Medicine; Visit Provider Hospitalist | DX: I12.9 Hypertensive chronic kidney disease with stage 1 through stage 4 chronic kidney disease, or unspecified chronic kidney disease (principal); N18.9 Chronic kidney disease, unspecified; I65.23 Occlusion and stenosis of bilateral carotid arteries; R60.9 Edema, unspecified | CPT/HCPCS: 99202; 99212 ==

== ENCOUNTER 2023-10-07 13:50 | Outpatient (AMB) | payer MEDICARE, OTHER, SELFPAY ==
[2023-10-07 13:51] VITALS: BP 130/48; PULSE 95; O2SAT 97; BMI 33.7
--- NOTE | 2023-10-07 13:51 | HO.NEPHOV ---
Vital Signs 10/07/23 13:51 Height 5 ft 9 in Weight 228 lb BMI 33.7 BP 130/48 L Blood Pressure Location Lt brachial Position Sitting Pulse 95 Pulse Source Pulse Oximeter Pulse Oximetry (%) 97 Oxygen Delivery Method Room Air Intake Visit Reasons: Unspecified kidney failure/ Confirmed Buccaro Required: No Accompanied by: Self / Same As Patient Allergies watermelon [WATERMELON] Allergy (Severe, Verified 10/07/23 13:53) ANAPHYLAXIS Iodinated Contrast Media [IV CONTRAST] Allergy (Intermediate, Verified 10/07/23 13:53) LIGHT HEADED AND SHORTNESS OF BREATH HPI Comments Details: . Kiran is a pleasant 68-year-old man with a history of hypertension COPD with peripheral vascular disease. He has had significantly leg edema. He was on amlodipine which has been discontinued recently. He is on Lasix 20 mg a day. He has underlying CKD with a serum creatinine of around 1.2-1.3 at baseline. Recently there has been a bump in serum creatinine up to 1.6. He was on lisinopril 20 mg a day which has been discontinued few months ago. The diuretics are being adjusted based on the creatinine but he continues to have leg edema and hence this referral. He is history of COPD and obstructive sleep apnea. Was recently hospitalized for exacerbation of COPD. He is currently on prednisone. He had an echocardiogram which did not reveal any significant right sided heart failure. He has a significant history of smoking for almost 40 years 1-2 packs per day he quit smoking about 15 years ago. Review of system was positive for significantly leg edema. He had increased urinary frequency which has resolved. No nausea vomiting no chest pain no palpitations no fever no rash [facility] Medical History Chronic lung disease COPD with acute exacerbation Chronic lung disease Tubular adenoma of colon (~2005) COPD (chronic obstructive pulmonary disease) Pulmonary nodules RAYMOND on CPAP Chronic rhinitis Asthma-COPD overlap syndrome PAF (paroxysmal atrial fibrillation) (~2017) Echocardiogram abnormal Encounter for screening for lung cancer Edema leg Venous insufficiency of both lower extremities AC (acromioclavicular) joint arthritis BPH (benign prostatic hyperplasia) Seasonal allergies Hyperlipidemia Surgical History History of appendectomy History of esophagogastroduodenoscopy (EGD) History of total left hip replacement (~2019) History of repair of right rotator cuff (~2017) History of nasal septoplasty (~2008) History of colonoscopy History of cataract (~2009) Family History Father No problems noted. Mother CAD (coronary artery disease) CHF (congestive heart failure) HTN (hypertension) Brother No problems noted. Brother No problems noted. Sister No problems noted. Sister No problems noted. Sister Mental health disorder Son No problems noted. Son No problems noted. Social History Household Members: Spouse, Family and Children Housing: House Do you presently have visiting nurse or other home services: No Alcohol intake: current Alcohol intake frequency: holidays/special occasions only Patient Tobacco Use Status: Former Tobacco user Quit Date: 13 years ago Tobacco use type: Cigarette Years Smoked: 40 years e-Cigarette/Vaping Use: Former Use Second Hand Smoke Exposure: No Advance Directives Date on File: 10/10/22 service: No Current occupational status: retired Cognitive needs: No Hearing needs: No Vision needs: No Physical Exam Vital Signs: Last Vital Signs Pulse 95 10/07/23 13:51 BP 130/48 L 10/07/23 13:51 Pulse Ox 97 10/07/23 13:51 Oxygen Delivery Method Room Air 10/07/23 13:51 BMI result Body Mass Index 33.7 Const General: comfortable Nutritional Appearance: well nourished Orientation/consciousness: patient oriented x3 HEENT Head: No normal to inspection Mouth: moist mucous membranes Neck Neck: Yes supple and Yes no JVD Resp Auscultation: clear to auscultation bilaterally, no rales and rub present Cardio Jugular venous distension: no JVD Palpation: no palpable S3 and no palpable S4 Heart sounds: no rubs GI Palpation (GI): Soft to palpation and nontender Percussion: No Fluid wave present General: Yes no CVA tenderness Back/Spine/Pelvis Back: no CVA tenderness Skin General skin exam: no rashes or lesions noted Neuro General: patient oriented x3 Extrem General: No clubbing and Yes edema (3+ pitting edema bilaterally with significant erythema. Not warm or tender) Results Reviewed Nephrology Results: Hgb 12.2 g/dl (14.0-18.0) L 09/05/23 WBC 20.0 X10*3/uL (4.8-10.8) H 09/05/23 Plt Count 311 X10*3/uL (160-400) 09/05/23 Sodium 139 mmol/L (135-145) 09/06/23 Potassium 4.9 mmol/L (3.3-5.1) 09/06/23 Chloride 105 mmol/L (96-108) 09/06/23 Carbon Dioxide 28 mmol/L (22-29) 09/06/23 BUN 61 mg/dL (9-16) H 09/06/23 Creatinine 1.49 mg/dL (0.5-1.4) H 09/06/23 Calcium 9.2 mg/dL (8.4-10.2) 09/06/23 Assessment & Plan Assessment & Plan (1) CKD (chronic kidney disease): Code(s): N18.9 - Chronic kidney disease, unspecified Category: Medical (2) Carotid stenosis, bilateral: Code(s): I65.23 - Occlusion and stenosis of bilateral carotid arteries Category: Medical (3) Edema: Code(s): R60.9 - Edema, unspecified Category: Medical (4) Hypertension: Code(s): I10 - Essential (primary) hypertension Category: Medical Qualifiers: Hypertension type: primary hypertension Qualified Code(s): I10 - Essential (primary) hypertension Plan . 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 Superimposed CHATO due to hypoperfusion in the setting of LATONIA inhibitors and diuretics. Given the history of present disease/carotid stenosis, underlying renal artery stenosis should be ruled out. Obstructive uropathy is a possibility but seems unlikely given the clinical picture. Urinary sediments are bland therefore glomerular interstitial disease seem unlikely Echocardiogram revealed normal right ventricular pressures without evidence of right heart failure Serum albumin was relatively low at 3.1. Mild elevation in alkaline phosphatase and ALT Check urine protein creatinine ratio Serum electrophoresis. Check LFTs. DC furosemide 20 mg Add Bumex 0.5 mg daily Stay on low-sodium diet. Leg elevation Check renal ultrasonogram based on this I will consider a renal Doppler as well. Avoid calcium channel blockers like amlodipine Agree with holding LATONIA inhibitors until renal function stabilizes. All his questions were answered . Orders: Orders Creatinine Urine Today M79.89 - Other specified soft tissue disorders, N18.9 - Chronic kidney disease, unspecified Total Protein Urine Random Today M79.89 - Other specified soft tissue disorders, N18.9 - Chronic kidney disease, unspecified UA and rflx microscopic Today M79.89 - Other specified soft tissue disorders, N18.9 - Chronic kidney disease, unspecified US renal BI Today M79.89 - Other specified soft tissue disorders, N18.9 - Chronic kidney disease, unspecified Comprehensive Met. Panel Today M79.89 - Other specified soft tissue disorders, N18.9 - Chronic kidney disease, unspecified Basic Metabolic Panel 3 Weeks M79.89 - Other specified soft tissue disorders, N18.9 - Chronic kidney disease, unspecified Protein Electrophoresis, Serum Today N18.9 - Chronic kidney disease, unspecified Medications: New bumetanide 0.5 mg PO DAILY 30 tabs 0RF Discontinued furosemide Discontinued Reason: Doctor's Order 20 mg PO Q48H 90 days 45 tabs 2RF Coding Level of Care Code New Pt Level 4 (51426) Diagnoses CKD (chronic kidney disease) N18.9 Carotid stenosis, bilateral I65.23 Edema R60.9 Primary hypertension I10 Hypertension type: primary hypertension
== END 2023-10-07 14:17 | disposition home or self-care (01) ==
PROVIDERS: PCP Family Medicine; Visit Provider Internal Medicine Hypertension Specialist
DX: I12.9 Hypertensive chronic kidney disease with stage 1 through stage 4 chronic kidney disease, or unspecified chronic kidney disease (principal); N18.9 Chronic kidney disease, unspecified; I65.23 Occlusion and stenosis of bilateral carotid arteries; R60.9 Edema, unspecified
CPT/HCPCS: 99204

== ENCOUNTER 2023-10-09 08:49 | Outpatient (REF) | payer MEDICARE, OTHER, SELFPAY ==
[2023-10-09 10:21] LABS: Appearance Urine Clear; Color Urine Yellow; Glucose Urine UA Negative (Negative); Leukocyte Esterase Urine Negative (Negative); Nitrite Urine Negative (Negative); Urine Blood Negative (Negative); Urine Ketones Negative (Negative); Urine Protein Negative (Neg-Trace)
[2023-10-09 10:56] LABS: Alanine Aminotransferase 25 U/L (0-40); Anion Gap 14 (12-20); Aspartate Amino Transferase 13 U/L (5-37); Bilirubin Total 0.4 mg/dL (0.0-1.0); Blood Urea Nitrogen 19 mg/dL (9-16); Calcium 9.3 mg/dL (8.4-10.2); Carbon Dioxide 27 mmol/L (22-29); Chloride 106 mmol/L (96-108); Estimated Glomerular Filt Rate 57; Glucose Random 108 mg/dL (60-115); Sodium 142 mmol/L (135-145)
[2023-10-09 10:57] LABS: Albumin Level 3.8 g/dL (3.5-5.0); Alkaline Phosphatase 82 U/L (39-117); Total Protein 6.8 g/dL (6.5-8.0)
[2023-10-09 11:09] LABS: Creatinine Urine 143.86 mg/dL; Total Protein Urine Random 13 mg/dL (<12)
[2023-10-10 23:03] LABS: PES - Abn Protein Band 1 0.2 g/dL (NONE DETECTED); Prot Elec - Albumin 3.5 g/dL (3.8-4.8); Prot Elec - Alpha1 0.4 g/dL (0.2-0.3); Prot Elec - Alpha2 0.9 g/dL (0.5-0.9); Prot Elec - Beta 1 0.5 g/dL (0.4-0.6); Prot Elec - Beta 2 0.4 g/dL (0.2-0.5); Prot Elec - Gamma 0.8 g/dL (0.8-1.7); Prot Elec - Total Protein 6.6 g/dL (6.1-8.1)
== END 2023-10-09 08:50 | disposition home or self-care (01) ==
LOC: HO.HMGCLDS 08:49
PROVIDERS: PCP Family Medicine; Visit Provider Internal Medicine Hypertension Specialist
DX: M79.89 Other specified soft tissue disorders (principal); N18.9 Chronic kidney disease, unspecified
CPT/HCPCS: 36415; 80053; 81003; 82570; 84156; 84165

== ENCOUNTER 2023-10-11 12:23 | Outpatient (REF) | payer MEDICARE, OTHER, SELFPAY ==
--- NOTE | ~2023-10-11 | US_ITS ---
EXAMINATION: US RETROPERITONEAL LIMITED (RENAL ONLY) CLINICAL INFORMATION: Chronic kidney disease. COMPARISON: None available. TECHNIQUE: Real-time imaging of the kidneys. FINDINGS: RIGHT KIDNEY: 11.5 x 5.5 x 4.9 cm (SAG x AP x TRV). The kidney is normal in size, contour, and echogenicity. Renal cortical thickness is normal. No calculi or focal parenchymal lesions. No hydronephrosis. LEFT KIDNEY: 11.6 x 5.2 x 5.1 cm (SAG x AP x TRV). The kidney is normal in size, contour, and echogenicity. Renal cortical thickness is normal. No calculi or focal parenchymal lesions. No hydronephrosis. US/US renal BI IMPRESSION: Normal renal ultrasound.
== END 2023-10-11 12:24 | disposition home or self-care (01) ==
LOC: HO.US 12:23
PROVIDERS: PCP Family Medicine; Visit Provider Psychiatry & Neurology Neurology
DX: R60.0 Localized edema (principal); N18.9 Chronic kidney disease, unspecified
CPT/HCPCS: 76775

== ENCOUNTER 2023-10-24 11:58 | Outpatient (REF) | payer MEDICARE, OTHER, SELFPAY ==
--- NOTE | ~2023-10-24 | XR_ITS ---
EXAMINATION: XR CHEST CLINICAL INFORMATION: Bronchopneumonia, unspecified organism. COMPARISON: 09/16/2023 TECHNIQUE: 3 views of the chest. FINDINGS: Heart size is normal. There is no gross pneumothorax. S-shaped thoracolumbar scoliosis with multilevel degenerative changes. No gross pleural effusion. No new focal consolidation to suggest pneumonia. XR/XR chest 2V IMPRESSION: No evidence of pneumonia.
== END 2023-10-24 11:59 | disposition home or self-care (01) ==
LOC: HO.XRAY 11:58
PROVIDERS: PCP Family Medicine; Visit Provider Hospitalist
DX: J18.0 Bronchopneumonia, unspecified organism (principal)
CPT/HCPCS: 71046

== ENCOUNTER 2023-10-25 11:07 | Outpatient (REF) | payer MEDICARE, OTHER, SELFPAY | END 2023-10-25 11:08 | disposition home or self-care (01) | LOC: HO.HMGCLDS 11:07 | PROVIDERS: PCP Family Medicine; Visit Provider Internal Medicine Hypertension Specialist | DX: Z13.89 Encounter for screening for other disorder (principal) ==

== ENCOUNTER 2023-10-26 10:22 | Outpatient (REF) | payer MEDICARE, OTHER, SELFPAY ==
[2023-10-26 11:25] LABS: Anion Gap 15 (12-20); Blood Urea Nitrogen 16 mg/dL (9-16); Calcium 9.8 mg/dL (8.4-10.2); Carbon Dioxide 26 mmol/L (22-29); Chloride 106 mmol/L (96-108); Estimated Glomerular Filt Rate 43; Glucose Random 111 mg/dL (60-115); Potassium 4.7 mmol/L (3.3-5.1); Sodium 142 mmol/L (135-145)
== END 2023-10-26 10:23 | disposition home or self-care (01) ==
LOC: HO.HMGCLDS 10:22
PROVIDERS: PCP Family Medicine; Visit Provider Internal Medicine Hypertension Specialist
DX: N18.9 Chronic kidney disease, unspecified (principal); M79.89 Other specified soft tissue disorders
CPT/HCPCS: 36415; 80048

== ENCOUNTER 2023-10-28 10:19 | Outpatient (AMB) | payer MEDICARE, OTHER, SELFPAY ==
--- NOTE | 2023-10-28 10:19 | HO.NEPHOV ---
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 Kiran is a pleasant 68-year-old man with a history of hypertension COPD with peripheral vascular disease. He has had significantly leg edema. He was on amlodipine which has been discontinued recently. He is on Lasix 20 mg a day. He has underlying CKD with a serum creatinine of around 1.2-1.3 at baseline. Recently there has been a bump in serum creatinine up to 1.6. He was on lisinopril 20 mg a day which has been discontinued few months ago. The diuretics are being adjusted based on the creatinine but he continues to have leg edema and hence this referral. He is history of COPD and obstructive sleep apnea. Was recently hospitalized for exacerbation of COPD. He is currently on prednisone. He had an echocardiogram which did not reveal any significant right sided heart failure. He has a significant history of smoking for almost 40 years 1-2 packs per day he quit smoking about 15 years ago. Review of system was positive for significantly leg edema. He had increased urinary frequency which has resolved. No nausea vomiting no chest pain no palpitations no fever no rash 10/28/2023. He admits taking Bumex for for a week. He took it for few days. Repeat serum creatinine was 1.62. No increase in BUN. He continues her leg edema. Urine did not reveal any significant proteinuria FORMERLY [facility] Medical History Chronic lung disease COPD with acute exacerbation Chronic lung disease Tubular adenoma of colon (~2005) COPD (chronic obstructive pulmonary disease) Pulmonary nodules RAYMOND on CPAP Chronic rhinitis Asthma-COPD overlap syndrome PAF (paroxysmal atrial fibrillation) (~2017) Echocardiogram abnormal Encounter for screening for lung cancer Edema leg Venous insufficiency of both lower extremities AC (acromioclavicular) joint arthritis BPH (benign prostatic hyperplasia) Seasonal allergies Hyperlipidemia Surgical History History of appendectomy History of esophagogastroduodenoscopy (EGD) History of total left hip replacement (~2019) History of repair of right rotator cuff (~2017) History of nasal septoplasty (~2008) History of colonoscopy History of cataract (~2009) Family History Father No problems noted. Mother CAD (coronary artery disease) CHF (congestive heart failure) HTN (hypertension) Brother No problems noted. Brother No problems noted. Sister No problems noted. Sister No problems noted. Sister Mental health disorder Son No problems noted. Son No problems noted. Social History Household Members: Spouse, Family and Children Housing: House Do you presently have visiting nurse or other home services: No Alcohol intake: current Alcohol intake frequency: holidays/special occasions only Patient Tobacco Use Status: Former Tobacco user Tobacco use type: Cigarette Years Smoked: 40 years e-Cigarette/Vaping Use: Former Use Second Hand Smoke Exposure: No Advance Directives Date on File: 10/10/22 service: No Current occupational status: retired Cognitive needs: No Hearing needs: No Vision needs: No Physical Exam Vital Signs: Last Vital Signs Pulse 89 10/28/23 10:20 BP 130/50 L 10/28/23 10:20 Pulse Ox 95 10/28/23 10:20 Oxygen Delivery Method Room Air 10/28/23 10:20 BMI result Body Mass Index 33.7 Const General: comfortable Nutritional Appearance: well nourished Orientation/consciousness: patient oriented x3 HEENT Head: No normal to inspection Mouth: moist mucous membranes Neck Neck: Yes supple and Yes no JVD Resp Auscultation: clear to auscultation bilaterally and no rales Cardio Jugular venous distension: no JVD Palpation: no palpable S3 and no palpable S4 Heart sounds: no rubs GI Palpation (GI): Soft to palpation and nontender Percussion: No Fluid wave present General: Yes no CVA tenderness Back/Spine/Pelvis Back: no CVA tenderness Skin General skin exam: no rashes or lesions noted Neuro General: patient oriented x3 Extrem General: No clubbing and Yes edema (3+ pitting edema bilaterally with significant erythema. Not warm or tender) Results Reviewed Nephrology Results: Sodium 142 mmol/L (135-145) 10/26/23 Potassium 4.7 mmol/L (3.3-5.1) 10/26/23 Chloride 106 mmol/L (96-108) 10/26/23 Carbon Dioxide 26 mmol/L (22-29) 10/26/23 BUN 16 mg/dL (9-16) 10/26/23 Creatinine 1.62 mg/dL (0.5-1.4) H 10/26/23 Calcium 9.8 mg/dL (8.4-10.2) 10/26/23 Urine Protein Negative mg/dL (Neg-Trace) 10/09/23 Urine Creatinine 143.86 mg/dL 10/09/23 Renal US 10/11/23 Assessment & Plan Assessment & Plan (1) CKD (chronic kidney disease): Code(s): N18.9 - Chronic kidney disease, unspecified Category: Medical (2) Carotid stenosis, bilateral: Code(s): I65.23 - Occlusion and stenosis of bilateral carotid arteries Category: Medical (3) Edema: Code(s): R60.9 - Edema, unspecified Category: Medical (4) Hypertension: Code(s): I10 - Essential (primary) hypertension Category: Medical Qualifiers: Hypertension type: primary hypertension Qualified Code(s): I10 - Essential (primary) hypertension Plan . 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 Superimposed CHATO due to hypoperfusion in the setting of LATONIA inhibitors and diuretics. Renal ultrasonogram was unremarkable No significant proteinuria Order serum immunofixation as suggested due to faint restricted band/M spike Urinary sediments are bland therefore glomerular interstitial disease seem unlikely Echocardiogram revealed normal right ventricular pressures without evidence of right heart failure Serum albumin was relatively low at 3.1. Mild elevation in alkaline phosphatase and ALT; repeat LFTs were normal Keep Bumex 0.5 mg daily for few more weeks and reassess the renal function. The renal function does not improve then I would discontinue the diuretics. Stay on low-sodium diet. Leg elevation No need for Doppler ultrasonogram of the renal arteries at this time. Avoid calcium channel blockers like amlodipine Agree with holding LATONIA inhibitors until renal function stabilizes. All his questions were answered . Orders: Orders Basic Metabolic Panel 3 Weeks N18.9 - Chronic kidney disease, unspecified, R60.9 - Edema, unspecified Immunofixation Pnl, Serum 3 Weeks N18.9 - Chronic kidney disease, unspecified, R60.9 - Edema, unspecified Medications: Refilled bumetanide 0.5 mg PO DAILY 30 tabs 0RF Coding Level of Care Code Est Pt Level 4 (03494) Diagnoses CKD (chronic kidney disease) N18.9 Carotid stenosis, bilateral I65.23 Edema R60.9 Primary hypertension I10 Hypertension type: primary hypertension
[2023-10-28 10:20] VITALS: BP 130/50; PULSE 89; O2SAT 95; BMI 33.7
== END 2023-10-28 10:38 | disposition home or self-care (01) ==
PROVIDERS: PCP Family Medicine; Visit Provider Internal Medicine Hypertension Specialist
DX: I12.9 Hypertensive chronic kidney disease with stage 1 through stage 4 chronic kidney disease, or unspecified chronic kidney disease (principal); N18.9 Chronic kidney disease, unspecified; I65.23 Occlusion and stenosis of bilateral carotid arteries; R60.9 Edema, unspecified
CPT/HCPCS: 99214

== ENCOUNTER → 2023-10-28 10:19 | Outpatient (BNVA) | payer MEDICARE, OTHER, SELFPAY | PROVIDERS: PCP Family Medicine; Visit Provider Internal Medicine Hypertension Specialist | DX: I12.9 Hypertensive chronic kidney disease with stage 1 through stage 4 chronic kidney disease, or unspecified chronic kidney disease (principal); I73.9 Peripheral vascular disease, unspecified; I65.23 Occlusion and stenosis of bilateral carotid arteries; N18.9 Chronic kidney disease, unspecified; R60.9 Edema, unspecified; Z79.52 Long term (current) use of systemic steroids | CPT/HCPCS: 99212 ==

== ENCOUNTER 2023-11-22 10:38 | Outpatient (REF) | payer MEDICARE, OTHER, SELFPAY ==
[2023-11-22 13:39] LABS: Anion Gap 13 (12-20); Blood Urea Nitrogen 19 mg/dL (9-16); Calcium 9.5 mg/dL (8.4-10.2); Carbon Dioxide 26 mmol/L (22-29); Chloride 105 mmol/L (96-108); Estimated Glomerular Filt Rate 42; Glucose Random 106 mg/dL (60-115); Potassium 4.4 mmol/L (3.3-5.1); Sodium 140 mmol/L (135-145)
[2023-11-25 23:27] LABS: IgA 237 mg/dL (70-320); IgG 1129 mg/dL (600-1540); IgM 59 mg/dL (50-300)
== END 2023-11-22 10:39 | disposition home or self-care (01) ==
LOC: HO.HMGCLDS 10:38
PROVIDERS: PCP Family Medicine; Visit Provider Internal Medicine Hypertension Specialist
DX: Z13.89 Encounter for screening for other disorder (principal)
CPT/HCPCS: 36415; 80048; 82784; 86334

== ENCOUNTER 2023-11-22 10:51 | Outpatient (AMB) | payer MEDICARE, OTHER, SELFPAY ==
--- NOTE | 2023-11-22 11:27 | AM.OFFWIN_ITS ---
Intake Vital Signs 3 11/22/23 11:29 Height 5 ft 9 in Weight 228 lb BMI 33.7 BP 132/66 Blood Pressure Location Rt brachial Position Sitting Pulse 82 Pulse Source Pulse Oximeter Temp 97.8 F Temp Source Oral Pulse Oximetry (%) 96 Oxygen Delivery Method Room Air Intake Visit Reasons: EP legs swollen Intake Note: pt is here c/o bilateral leg swelling. Ongoing but worse recently Patient Tobacco Use Status: Former Tobacco user Allergies watermelon [WATERMELON] Allergy (Severe, Verified 11/22/23 11:28) ANAPHYLAXIS Iodinated Contrast Media [IV CONTRAST] Allergy (Intermediate, Verified 11/22/23 11:28) LIGHT HEADED AND SHORTNESS OF BREATH Do you need a note to return to daycare/school/sports/work: No HPI HPI Comments 2 History of Present Illness0 Details 68 y/o male patient who presents to walk in clinic with c/o swelling and pain on both lower legs. Pt has h/o bilateral peripheral edema for years now. Pt believes that the swelling is getting worse in the past 2 weeks, and very painful to bend legs. He is currently being managed by Nephrology (Next Appt 11/25). He was on lasix but stopped because dropped his Kidney functions. Denies CP, dizziness, headaches, or SOB. FORMERLY [facility] Medical History Chronic lung disease COPD with acute exacerbation Chronic lung disease Tubular adenoma of colon (~2005) COPD (chronic obstructive pulmonary disease) Pulmonary nodules RAYMOND on CPAP Chronic rhinitis Asthma-COPD overlap syndrome PAF (paroxysmal atrial fibrillation) (~2017) Echocardiogram abnormal Encounter for screening for lung cancer Edema leg Venous insufficiency of both lower extremities AC (acromioclavicular) joint arthritis BPH (benign prostatic hyperplasia) Seasonal allergies Hyperlipidemia Surgical History History of appendectomy History of esophagogastroduodenoscopy (EGD) History of total left hip replacement (~2019) History of repair of right rotator cuff (~2017) History of nasal septoplasty (~2008) History of colonoscopy History of cataract (~2009) Family History Father No problems noted. Mother CAD (coronary artery disease) CHF (congestive heart failure) HTN (hypertension) Brother No problems noted. Brother No problems noted. Sister No problems noted. Sister No problems noted. Sister Mental health disorder Son No problems noted. Son No problems noted. Social History Household Members: Spouse, Family and Children Housing: House Do you presently have visiting nurse or other home services: No Alcohol intake: current Alcohol intake frequency: holidays/special occasions only Patient Tobacco Use Status: Former Tobacco user Tobacco use type: Cigarette Years Smoked: 40 years e-Cigarette/Vaping Use: Former Use Second Hand Smoke Exposure: No Advance Directives Date on File: 10/10/22 service: No Current occupational status: retired Cognitive needs: No Hearing needs: No Vision needs: No Review of Systems Const All systems reviewed & are unremarkable except as noted in HPI and below Physical Exam Vital Signs: Last Vital Signs Temp 97.8 F 11/22/23 11:29 Pulse 82 11/22/23 11:29 BP 132/66 11/22/23 11:29 Pulse Ox 96 11/22/23 11:29 Oxygen Delivery Method Room Air 11/22/23 11:29 BMI result Body Mass Index 33.7 Const Orientation/consciousness: patient oriented x3 Resp Effort & Inspection: normal respiratory effort Auscultation: clear to auscultation bilaterally Cardio Rate: regular rate Rhythm: regular rhythm Neuro General: patient oriented x3, gait normal and moves all extremities Extrem Right lower extremity: lower leg Details: erythema, tenderness, non-pitting edema and warmth Left lower extremity: lower leg Details: erythema, tenderness, non-pitting edema and warmth Ankle/foot/toe images: 2 1. Non-pitting edema, redness, very tender and firm to touch. 2. Non-pitting edema, redness, very tender and firm to touch. Psych Speech and movement: Normal speech and movement present Assessment & Plan Assessment & Plan (1) Peripheral edema: Code(s): R60.0 - Localized edema Plan: Advised to go to ED for further evaluation He does have f/u appointment 11/25 with Kidney doctor. Coding Level of Care Code Est Pt Level 3 (27871) Diagnoses Peripheral edema R60.0 Time Spent (min) 15
[2023-11-22 11:29] VITALS: BP 132/66; PULSE 82; TEMP 36.6; O2SAT 96; BMI 33.7
== END 2023-11-22 12:31 | disposition home or self-care (01) ==
PROVIDERS: PCP Family Medicine; Visit Provider Nurse Practitioner Family
DX: R60.0 Localized edema (principal)
CPT/HCPCS: 99213

== ENCOUNTER 2023-11-22 12:37 | Emergency (ER) | payer MEDICARE, OTHER, SELFPAY ==
--- NOTE | ~2023-11-22 | US_ITS ---
EXAMINATION: US VENOUS ULTRASOUND WITH DOPPLER LOWER EXTREMITY, BILATERAL CLINICAL INFORMATION: Lower extremity DVT ultrasound 10/25/2020 COMPARISON: None available. TECHNIQUE: Ultrasound of the deep veins is performed from the hip to the calf with compression sonography and color and pulse Doppler assessment. Spectral analysis with color-flow imaging is performed. FINDINGS: RIGHT: There is normal venous compression and respiratory variation and augmented flow. The visualized common femoral vein, superficial femoral vein, profunda femoral vein, popliteal vein, and the trifurcation region shows no evidence of deep venous thrombosis. There is no significant popliteal fossa cyst. LEFT: There is normal venous compression and respiratory variation and augmented flow. The visualized common femoral vein, superficial femoral vein, profunda femoral vein, popliteal vein, and the trifurcation region shows no evidence of deep venous thrombosis. There is no significant popliteal fossa cyst. A few subcentimeter short axis left inguinal nodes with normal hilar architecture not pathologically enlarged. Moderate subcutaneous edema in the bilateral calves. US/US venous duplex LE BI IMPRESSION: 1. No DVT demonstrated in the bilateral lower extremity. 2. Moderate subcutaneous edema in the bilateral calves.
[2023-11-22 13:10] VITALS: BP 159/67; PULSE 88; RESP 20; TEMP 36.8; O2SAT 94; BMI 35.8
--- NOTE | 2023-11-22 13:14 | ED.GENADULT ---
HPI - General Adult General Chief complaint: Extremity Problem Stated complaint: Bilateral leg swelling Time Seen by Provider: 11/22/23 15:59 Source: patient, RN notes reviewed and old records reviewed Mode of arrival: ambulatory Limitations: no limitations History of Present Illness ED Provider: Scar Herron PA-C HPI narrative: 68-year-old male with a history of HTN, COPD, PVD, chronic lower extremity edema, RAYMOND, HLD, BPH, AFib on Eliquis, CKD who presents to the ER from home for evaluation of worsening lower extremity edema for the last 3 or 4 weeks. Patient states he was recently seen by his baseball inspector and repairer who adjusted his diuretic medication. He states since then he has had worsening lower extremity swelling and a 10 lb weight gain. He denies any associated shortness of breath or chest pain. He is able to lay down flat without being short of breath. States his lower anterior legs are always red and there is no change in coloration at this time. He denies any fever or chills. He states the swelling is now up to his thighs which is new. he reports compliance with his diuretic medication. He states he eats whatever he wants but has cut down on his salt intake. He reports being unable to use compression stockings because he can not get them on. His got him velcro compression devices from [employer] which he intermittently uses. He tries to elevate his legs when he can. complaint: Worsening lower extremity edema Onset (ago): week(s) (3) Location: left, right and lower extremity Radiation: proximal Severity: severe Quality: aching Pain Consistency: constant Relieving factors: rest Exacerbating factors: movement Associated symptoms: denies other symptoms Treatments prior to arrival: none Related Data Home Medications ?Medication ?Instructions ?Recorded ?Confirmed CPAP (CPAP Machine/Device) 02/15/22 09/26/23 nebulizers 02/15/22 09/26/23 tezepelumab-ekko 210 mg/1.91 mL 210 mg subcut Q4W 08/06/23 09/26/23 (110 mg/mL) subcutaneous pen injector (Januszspire) metoprolol succinate 100 mg 100 mg PO BEDTIME 08/30/23 09/26/23 tablet,extended release 24 hr theophylline 300 mg 300 mg PO Q48H 08/30/23 09/26/23 tablet,extended release,12 hr Previous Rx's ?Medication ?Instructions ?Recorded atorvastatin 80 mg tablet 80 mg PO DAILY #90 tabs 10/03/22 bupropion HCl 75 mg tablet 150 mg (2 x 75 mg) PO BID 90 days 01/01/23 #360 tabs dronedarone 400 mg tablet (Multaq) 400 mg PO BID 90 days #180 tabs 05/10/23 apixaban 5 mg tablet (Eliquis) 5 mg PO BID #180 tabs 05/21/23 budesonide 0.5 mg/2 mL suspension 0.5 mg (2 mL) inhalation BID #360 05/21/23 for nebulization mL arformoterol 15 mcg/2 mL solution 15 mcg (2 mL) inhalation BID #360 09/18/23 for nebulization (Brovana) mL levalbuterol HCl 1.25 mg/3 mL 1.25 mg (3 mL) inhalation BID 90 09/18/23 solution for nebulization days #540 mL prednisone 10 mg tablet 40 mg (4 x 10 mg) PO DAILY 30 days 09/18/23 #120 tabs tamsulosin 0.4 mg capsule (Flomax) 0.4 mg PO BID 90 days #180 caps 09/20/23 montelukast 10 mg tablet 10 mg PO DAILY #90 tabs 09/23/23 albuterol sulfate 90 mcg/actuation 2 puff inhalation QID PRN 10/07/23 aerosol inhaler Shortness Of Breath #8.5 grams bumetanide 0.5 mg tablet 0.5 mg PO DAILY #30 tabs 10/28/23 roflumilast 500 mcg tablet 500 mcg PO DAILY #90 tabs 11/20/23 bumetanide 1 mg tablet 1 mg PO DAILY #30 tabs 11/22/23 Allergies Allergy/AdvReac Type Severity Reaction Status Date / Time watermelon [WATERMELON] Allergy Severe ANAPHYLAXIS Verified 11/22/23 13:15 Iodinated Contrast Media Allergy Intermediate LIGHT Verified 11/22/23 13:15 [IV CONTRAST] HEADED AND SHORTNESS OF BREATH Review of Systems Review of Systems: Yes all other systems are reviewed and are negative PMFSH Past Medical History Medical History Chronic lung disease COPD with acute exacerbation Chronic lung disease Tubular adenoma of colon (~2005) COPD (chronic obstructive pulmonary disease) Pulmonary nodules RAYMOND on CPAP Chronic rhinitis Asthma-COPD overlap syndrome PAF (paroxysmal atrial fibrillation) (~2017) Echocardiogram abnormal Encounter for screening for lung cancer Edema leg Venous insufficiency of both lower extremities AC (acromioclavicular) joint arthritis BPH (benign prostatic hyperplasia) Seasonal allergies Hyperlipidemia Surgical History History of appendectomy History of esophagogastroduodenoscopy (EGD) History of total left hip replacement (~2019) History of repair of right rotator cuff (~2017) History of nasal septoplasty (~2008) History of colonoscopy History of cataract (~2009) Family History Family History Father No problems noted. Mother CAD (coronary artery disease) CHF (congestive heart failure) HTN (hypertension) Brother No problems noted. Brother No problems noted. Sister No problems noted. Sister No problems noted. Sister Mental health disorder Son No problems noted. Son No problems noted. Social History Social History Household Members: Spouse, Family and Children Housing: House Do you presently have visiting nurse or other home services: No Alcohol intake: current Alcohol intake frequency: holidays/special occasions only Patient Tobacco Use Status: Former Tobacco user Tobacco use type: Cigarette Years Smoked: 40 years e-Cigarette/Vaping Use: Former Use Second Hand Smoke Exposure: No Advance Directives: Yes Advance Directives on File: Yes Advance Directives Date on File: 10/10/22 Do you have a plan to hurt others: No Plan service: No Current occupational status: retired Cognitive needs: No Hearing needs: No Vision needs: No Physical Exam ED Vital Signs: Vital Signs - 24 hr 11/22/23 13:10 11/22/23 14:47 11/22/23 15:59 Temperature 98.3 F 98.2 F 98.1 F Pulse Rate 88 86 85 Respiratory Rate 20 17 17 Blood Pressure 159/67 H 145/58 H 149/58 H Pulse Oximetry 94 95 97 Oxygen Delivery Method Room Air Room Air Room Air 11/22/23 17:38 Temperature 98.5 F Pulse Rate 89 Respiratory Rate 18 Blood Pressure 141/63 H Pulse Oximetry 95 Oxygen Delivery Method Room Air BMI result Body Mass Index 35.8 Appearance: Alert. Oriented X3. No acute distress. Head: normocephalic, atraumatic. Eyes: Pupils equal, round and reactive to light. ENT: Pharynx normal. No tonsillar swelling or exudate. Neck: Normal inspection. Neck supple. CVS: Normal heart rate and rhythm. Pulses normal. Respiratory: No respiratory distress. Breath sounds With end-expiratory wheeze in left lower lobe Abdomen: Obese,Soft and nontender. +BS x4 Skin: Skin warm and dry. Normal skin color. Normal skin turgor. No rashes. Extremities: 4+ lower extremity edema of the lower legs with [id number] pretibial erythema Bilaterally, 2+ pitting edema of the bilateral outer thighs. No joint swelling. Neuro/psych: Oriented X 3. No motor deficit. No sensory deficit. CN II-XII intact. Normal speech and cognition. Course Course Course Narrative: This is an RME done by CALI Fletcher: Additional HPI, ROS, PE not included below will be deferred to primary provider. 68 yo male with past medical history of CKD, CHF, HTN, cartoid stenosis, HLD, COPD, paroxysmal atrial fibrillation, RAYMOND presenting with bilateral lower extremity pain and swelling. Appearance: Alert.? Oriented X3.? No acute cardiopulmonary distress distress.? Head: Normocephalic, atraumatic, no step-offs or deformities Neck: Normal inspection.? Neck supple.? CVS: Pulses normal.? Respiratory: No respiratory distress.? Skin: ? Normal skin color. Extremities: 5/5 strength to bilateral upper and lower extremities. 3+ pitting edema to bilateral lower extremities with overlying erythema. Neuro: Oriented X 3.? No motor deficit.? No sensory deficit. Medical Decision Making Medical Decision Making MDM Narrative: 68-year-old male with a history of HTN, COPD, PVD, chronic lower extremity edema, RAYMOND, HLD, BPH, AFib on Eliquis, CKD who presents to the ER from home for evaluation of worsening lower extremity edema for the last 3 or 4 weeks after his baseball inspector and repairer changed him from 20 mg of Lasix to 0.5 mg of Bumex daily. Patient arrives to the ER hemodynamically stable. He is saturating well on room air. He is able to lay flat on the stretcher and not be short of breath. He has some expiratory wheeze on exam which he states is his baseline. He does have significant lower extremity edema that is now pitting to the dependent thighs. He has a normal BNP today. Lower extremity Dopplers were done that were negative for DVT. He is on anticoagulation for his AFib. He had a recent echo in August that shows an indeterminate diastolic function with a normal EF. He is followed by Nephrology for his CKD and edema. Dr. Yates's note from October 28 was reviewed. He was consulted via [facility] text for recommendations. given that he has not short of breath at this time, will plan to increase the Bumex to 1 mg per day and he has an appointment with nephrology next week. He will get his labs redrawn. He was advised to significantly decrease his salt intake, work on increasing time with his legs elevated as well as obtain more effective compression stockings. Stable for discharge home with Bumex increased dose and close outpatient follow-up. Return precautions were discussed and all questions were answered. Stable for DC Differential Diagnosis Differential Diagnoses: The differential diagnosis associated with the presentation includes worsening peripheral vascular disease, lymphedema, cellulitis, acute CHF exacerbation, anasarca, volume overload Admission/Observation Consideration of admission/observation: Escalation of care including admission/observation considered Consult Healthcare Provider Management of the patient was discussed with: Pie Maker Dr. Yates Lab Data MDM Lab Attestation statement: I reviewed the patient's lab results. mild thrombocytosis, CKD near baseline 11/22/23 13:28 11/22/23 13:27 Labs: Lab Results 11/22/23 11/22/23 Range/Units 13:27 13:28 WBC 9.3 (4.8-10.8) X10*3/uL RBC 4.94 (4.60-5.80) X10*6/uL Hgb 14.8 D (14.0-18.0) g/dl Hct 43.8 (42.0-52.0) % MCV 88.7 (80.0-98.0) fL MCH 30.0 (27.0-33.0) pg MCHC 33.8 (31.0-36.0) g/dl RDW 13.1 (11.0-16.0) % Plt Count 406 H D (160-400) X10*3/uL MPV 9.7 (9.4-12.4) fL Immature Gran % (Auto) 0.3 (0.0-0.4) % Neut % (Auto) 67.0 (45-73) % Lymph % (Auto) 19.5 L (20-40) % Union % (Auto) 10.3 (2-11) % Eos % (Auto) 2.3 (0-4) % Baso % (Auto) 0.6 (0-2) % Lymph # (Auto) 1.8 (1.2-4.9) X10*3/uL Union # (Auto) 1.0 (0.1-1.2) X10*3/uL Eos # (Auto) 0.2 (0.0-0.4) X10*3/uL Baso # (Auto) 0.1 (0.0-0.2) X10*3/uL Abs Immat Gran (auto) 0.03 (0.00-0.03) X10*3/uL Absolute Neuts (auto) 6.2 (2.0-8.3) x10*3/uL Absolute Nucleated RBC 0.000 (0.0-0.012) X10*3/uL Nucleated RBC % (auto) 0.0 (0.0-0.2) /100WBC PT 13.1 (11.1-13.3) SEC INR 1.1 (0.9-1.1) Sodium 141 (135-145) mmol/L Potassium 4.2 (3.3-5.1) mmol/L Chloride 104 (96-108) mmol/L Carbon Dioxide 25 (22-29) mmol/L Anion Gap 16 (12-20) BUN 19 H (9-16) mg/dL Creatinine 1.72 H (0.5-1.4) mg/dL Estim Creat Clear Calc 47.1 Estimated GFR 40 Random Glucose 92 (60-115) mg/dL Calcium 9.9 (8.4-10.2) mg/dL Total Bilirubin 0.5 (0.0-1.0) mg/dL AST 15 (5-37) U/L ALT 17 (0-40) U/L Alkaline Phosphatase 110 (39-117) U/L B-Natriuretic Peptide 38 (<100) pg/mL Total Protein 8.1 H (6.5-8.0) g/dL Albumin 4.1 (3.5-5.0) g/dL Independent Interpretation I performed an independent interpretation of an: Ultrasound Interpretation: no acute DVT demonstrated, agrees radiology read Radiology Impression Discussion of test interpretation with radiology: I have reviewed the radiologist's reading. Radiologist Impression: EXAMINATION: US VENOUS ULTRASOUND WITH DOPPLER LOWER EXTREMITY, BILATERAL CLINICAL INFORMATION: Lower extremity DVT ultrasound 10/25/2020 COMPARISON: None available. TECHNIQUE: Ultrasound of the deep veins is performed from the hip to the calf with compression sonography and color and pulse Doppler assessment. Spectral analysis with color-flow imaging is performed. FINDINGS: RIGHT: There is normal venous compression and respiratory variation and augmented flow. The visualized common femoral vein, superficial femoral vein, profunda femoral vein, popliteal vein, and the trifurcation region shows no evidence of deep venous thrombosis. There is no significant popliteal fossa cyst. LEFT: There is normal venous compression and respiratory variation and augmented flow. The visualized common femoral vein, superficial femoral vein, profunda femoral vein, popliteal vein, and the trifurcation region shows no evidence of deep venous thrombosis. There is no significant popliteal fossa cyst. A few subcentimeter short axis left inguinal nodes with normal hilar architecture not pathologically enlarged. Moderate subcutaneous edema in the bilateral calves. US/US venous duplex LE BI IMPRESSION: 1. No DVT demonstrated in the bilateral lower extremity. 2. Moderate subcutaneous edema in the bilateral calves. External Record Review External record reviewed: Office record, Outpatient record, Prior outpatient labs and Prior outpatient radiology Prescription Management I considered prescription management with: Antibiotic ( considered however low clinical suspicion for cellulitis) and Other (diuretic ) Chronic Conditions Patient?s care impacted by: Other ( peripheral vascular disease, CKD) Critical Care Time Critical Care Time Critical Care Time: No Discharge Plan Discharge Clinical Impression: Edema leg Patient Disposition: Home, Self-Care Instructions: Leg Edema (ED) Additional Instructions: recommend increasing your diuretic medication to 1mg per day this should help decrease the fluid in your legs work on elevating your legs more decrease your salt intake wear compression stockings to your thighs, you may need to get medical grade ones that are XL size from your doctor follow up with your PCP and your kidney doctor you should get your kidney function and your labs checked next week If you develop new or worsening symptoms call 911 or come back to the ER for further evaluation. Prescriptions: New bumetanide 1 mg tablet 1 mg PO DAILY Qty: 30 0RF No Action atorvastatin 80 mg tablet 80 mg PO DAILY Qty: 90 3RF bupropion HCl 75 mg tablet 150 mg PO BID 90 Days Qty: 360 3RF Multaq 400 mg tablet 400 mg PO BID 90 Days Qty: 180 3RF Rx Instructions: must administer with a meal/food Eliquis 5 mg tablet 5 mg PO BID Qty: 180 3RF budesonide 0.5 mg/2 mL suspension for nebulization 0.5 mg inhalation BID Qty: 360 3RF tamsulosin [Flomax] 0.4 mg capsule 0.4 mg PO BID 90 Days Qty: 180 3RF montelukast 10 mg tablet 10 mg PO DAILY Qty: 90 3RF roflumilast 500 mcg tablet 500 mcg PO DAILY Qty: 90 3RF metoprolol succinate 100 mg tablet extended release 24 hr 100 mg PO BEDTIME theophylline 300 mg tablet extended release 12 hr 300 mg PO Q48H Tezspire 210 mg/1.91 mL (110 mg/mL) Pen Injector 210 mg SUBCUT Q4W (DME) nebulizers Misc See Rx Instructions .Route Rx Instructions: As directed (DME) CPAP Machine/Device Device See Rx Instructions .Route Rx Instructions: As directed prednisone 10 mg tablet 40 mg PO DAILY 30 Days Qty: 120 1RF arformoterol [Brovana] 15 mcg/2 mL solution for nebulization 15 mcg inhalation BID Qty: 360 3RF levalbuterol HCl 1.25 mg/3 mL solution for nebulization 1.25 mg inhalation BID 90 Days Qty: 540 3RF albuterol sulfate 90 mcg/actuation HFA aerosol inhaler 2 puff inhalation QID PRN (Reason: Shortness Of Breath) Qty: 8.5 11RF bumetanide 0.5 mg tablet 0.5 mg PO DAILY Qty: 30 0RF Interventions: ED Discharge Assessment Last Done: 11/22/23 17:38 Discharge Date/Time: 11/22/23 17:40 Print Language: Palauan
[2023-11-22 13:32] LABS: MANUAL DIFF FLAG NO
[2023-11-22 13:39] LABS: INTERNATIONAL NORM RATIO 1.1 (0.9-1.1); Prothrombin Time 13.1 SEC (11.1-13.3)
[2023-11-22 13:40] LABS: Basophils Absolute Auto 0.1 X10*3/uL (0.0-0.2); Basophils Percent Auto 0.6 % (0-2); Eosinophils Absolute Auto 0.2 X10*3/uL (0.0-0.4); Eosinophils Percent Auto 2.3 % (0-4); Hematocrit 43.8 % (42.0-52.0); Hemoglobin 14.8 g/dl (14.0-18.0); Imm Gran Abs Auto 0.03 X10*3/uL (0.00-0.03); Imm Gran Pct Auto 0.3 % (0.0-0.4); Lymphocytes Absolute Auto 1.8 X10*3/uL (1.2-4.9); Lymphocytes Percent Auto 19.5 % (20-40); Mean Corpuscular HGB Conc 33.8 g/dl (31.0-36.0); Mean Corpuscular Volume 88.7 fL (80.0-98.0); Mean Platelet Volume 9.7 fL (9.4-12.4); Monocytes Percent Auto 10.3 % (2-11); Neutrophils Absolute Auto 6.2 x10*3/uL (2.0-8.3); Platelet Count 406 X10*3/uL (160-400); Red Blood Count 4.94 X10*6/uL (4.60-5.80); Red Cell Distribution Width 13.1 % (11.0-16.0); White Blood Count 9.3 X10*3/uL (4.8-10.8)
[2023-11-22 13:49] LABS: Alanine Aminotransferase 17 U/L (0-40); Albumin Level 4.1 g/dL (3.5-5.0); Alkaline Phosphatase 110 U/L (39-117); Anion Gap 16 (12-20); Aspartate Amino Transferase 15 U/L (5-37); Bilirubin Total 0.5 mg/dL (0.0-1.0); Blood Urea Nitrogen 19 mg/dL (9-16); Calcium 9.9 mg/dL (8.4-10.2); Carbon Dioxide 25 mmol/L (22-29); Chloride 104 mmol/L (96-108); Creatinine Clr Calc Pharmacy 47.1; Estimated Glomerular Filt Rate 40; Glucose Random 92 mg/dL (60-115); Potassium 4.2 mmol/L (3.3-5.1); Sodium 141 mmol/L (135-145); Total Protein 8.1 g/dL (6.5-8.0)
[2023-11-22 13:55] LABS: B Type Natriuretic Peptide 38 pg/mL (<100)
[2023-11-22 14:47] VITALS: BP 145/58; PULSE 86; RESP 17; TEMP 36.8; O2SAT 95
[2023-11-22 15:59] VITALS: BP 149/58; PULSE 85; RESP 17; TEMP 36.7; O2SAT 97
[2023-11-22 17:38] VITALS: BP 141/63; PULSE 89; RESP 18; TEMP 36.9; O2SAT 95
== END 2023-11-22 17:40 | disposition home or self-care (01) ==
PROVIDERS: Physician Assistant; Emergency Provider Emergency Medicine; PCP Family Medicine
DX: R60.0 Localized edema (principal); I48.0 Paroxysmal atrial fibrillation; Z79.01 Long term (current) use of anticoagulants
CPT/HCPCS: 36415; 80048; 80053; 82784; 83880; 85025; 85610; 86334; 93970; 99283; 99284

== ENCOUNTER 2023-11-26 10:05 | Outpatient (AMB) | payer MEDICARE, OTHER, SELFPAY ==
[2023-11-26 10:07] VITALS: BP 128/56; PULSE 92; O2SAT 93; BMI 35.7
--- NOTE | 2023-11-26 10:07 | HO.NEPHOV ---
Vital Signs 11/26/23 10:07 Height 5 ft 7 in Weight 228 lb BMI 35.7 BP 128/56 L Blood Pressure Location Lt brachial Position Sitting Pulse 92 Pulse Source Pulse Oximeter Pulse Oximetry (%) 93 Oxygen Delivery Method Room Air Intake Visit Reasons: 4week f/u/ Conf Assistant Softball Coach Required: No Accompanied by: Self / Same As Patient Allergies watermelon [WATERMELON] Allergy (Severe, Verified 11/26/23 10:09) ANAPHYLAXIS Iodinated Contrast Media [IV CONTRAST] Allergy (Intermediate, Verified 11/26/23 10:09) LIGHT HEADED AND SHORTNESS OF BREATH HPI Comments Details: . Kiran is a pleasant 68-year-old man with a history of hypertension COPD with peripheral vascular disease. He has had significantly leg edema. He was on amlodipine which has been discontinued recently. He is on Lasix 20 mg a day. He has underlying CKD with a serum creatinine of around 1.2-1.3 at baseline. Recently there has been a bump in serum creatinine up to 1.6. He was on lisinopril 20 mg a day which has been discontinued few months ago. The diuretics are being adjusted based on the creatinine but he continues to have leg edema and hence this referral. He is history of COPD and obstructive sleep apnea. Was recently hospitalized for exacerbation of COPD. He is currently on prednisone. He had an echocardiogram which did not reveal any significant right sided heart failure. He has a significant history of smoking for almost 40 years 1-2 packs per day he quit smoking about 15 years ago. Review of system was positive for significantly leg edema. He had increased urinary frequency which has resolved. No nausea vomiting no chest pain no palpitations no fever no rash 10/28/2023. He admits taking Bumex for for a week. He took it for few days. Repeat serum creatinine was 1.62. No increase in BUN. He continues her leg edema. Urine did not reveal any significant proteinuria 11/26/2023. He was on Bumex 0.5 mg once a day. However he felt that the leg edema was worsening. He went to the ER and he had more swelling. Bumex was increased to 1 mg a day. However is still believes that the edema gets worse with a high dose of Bumex. He has significant redness in his legs which is pain Doppler did not reveal any DVTs [facility] Medical History Chronic lung disease COPD with acute exacerbation Chronic lung disease Tubular adenoma of colon (~2005) COPD (chronic obstructive pulmonary disease) Pulmonary nodules RAYMOND on CPAP Chronic rhinitis Asthma-COPD overlap syndrome PAF (paroxysmal atrial fibrillation) (~2017) Echocardiogram abnormal Encounter for screening for lung cancer Edema leg Venous insufficiency of both lower extremities AC (acromioclavicular) joint arthritis BPH (benign prostatic hyperplasia) Seasonal allergies Hyperlipidemia Surgical History History of appendectomy History of esophagogastroduodenoscopy (EGD) History of total left hip replacement (~2019) History of repair of right rotator cuff (~2017) History of nasal septoplasty (~2008) History of colonoscopy History of cataract (~2009) Family History Father No problems noted. Mother CAD (coronary artery disease) CHF (congestive heart failure) HTN (hypertension) Brother No problems noted. Brother No problems noted. Sister No problems noted. Sister No problems noted. Sister Mental health disorder Son No problems noted. Son No problems noted. Social History Household Members: Spouse, Family and Children Housing: House Do you presently have visiting nurse or other home services: No Alcohol intake: current Alcohol intake frequency: holidays/special occasions only Patient Tobacco Use Status: Former Tobacco user Tobacco use type: Cigarette Years Smoked: 40 years e-Cigarette/Vaping Use: Former Use Second Hand Smoke Exposure: No Advance Directives Date on File: 10/10/22 service: No Current occupational status: retired Cognitive needs: No Hearing needs: No Vision needs: No Physical Exam Vital Signs: Last Vital Signs Pulse 92 11/26/23 10:07 BP 128/56 L 11/26/23 10:07 Pulse Ox 93 11/26/23 10:07 Oxygen Delivery Method Room Air 11/26/23 10:07 BMI result Body Mass Index 35.7 Const General: comfortable; No acute distress Orientation/consciousness: patient oriented x3 Eyes General: appearance normal, both eyes and all related structures Visual [place]: normal visual españa by confrontation Neck Neck: Yes supple and Yes no JVD Resp Effort & Inspection: normal respiratory effort and respiratory effort not decreased Auscultation: rhonchi Cardio Palpation: no palpable S3 and no palpable S4 Heart sounds: no rubs GI Inspection: Yes normal to inspection Palpation (GI): Soft to palpation Percussion: Yes normal to percussion Auscultation: normal bowel sounds General: Yes no CVA tenderness Back/Spine/Pelvis Back: no CVA tenderness Skin General skin exam: no petechiae and no purpura Neuro General: patient oriented x3 and no focal motor deficits Extrem Other: Erythema in both lower extremities with tenderness General: No clubbing and Yes edema Results Reviewed Nephrology Results: Hgb 14.8 g/dl (14.0-18.0) 11/22/23 WBC 9.3 X10*3/uL (4.8-10.8) 11/22/23 Plt Count 406 X10*3/uL (160-400) H 11/22/23 Sodium 141 mmol/L (135-145) 11/22/23 Potassium 4.2 mmol/L (3.3-5.1) 11/22/23 Chloride 104 mmol/L (96-108) 11/22/23 Carbon Dioxide 25 mmol/L (22-29) 11/22/23 BUN 19 mg/dL (9-16) H 11/22/23 Creatinine 1.72 mg/dL (0.5-1.4) H 11/22/23 Calcium 9.9 mg/dL (8.4-10.2) 11/22/23 Urine Protein Negative mg/dL (Neg-Trace) 10/09/23 Urine Creatinine 143.86 mg/dL 10/09/23 Renal US 10/11/23 Assessment & Plan Assessment & Plan (1) Edema: Code(s): R60.9 - Edema, unspecified Category: Medical (2) CKD (chronic kidney disease): Code(s): N18.9 - Chronic kidney disease, unspecified Category: Medical (3) Carotid stenosis, bilateral: Code(s): I65.23 - Occlusion and stenosis of bilateral carotid arteries Category: Medical (4) Hypertension: Code(s): I10 - Essential (primary) hypertension Category: Medical Qualifiers: Hypertension type: primary hypertension Qualified Code(s): I10 - Essential (primary) hypertension Plan . 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 Superimposed CHATO due to hypoperfusion in the setting of LATONIA inhibitors and diuretics. Renal ultrasonogram was unremarkable No significant proteinuria serum immunofixation shows IgG kappa monoclonal protein Urinary sediments are bland therefore glomerular/ interstitial disease seem unlikely Echocardiogram revealed normal right ventricular pressures without evidence of right heart failure Serum albumin was relatively low at 3.1. Mild elevation in alkaline phosphatase and ALT; repeat LFTs were normal Bilateral leg erythema suggestive of cellulitis. I will treat him with a course of cephalexin for a week. Discontinue Bumex at his request and start him on Lasix 20 mg b.i.d. for a week and then decrease dose 20 mg a day. Stay on low-sodium diet. Leg elevation No need for Doppler ultrasonogram of the renal arteries at this time. Avoid calcium channel blockers like amlodipine Agree with holding LATONIA inhibitors until renal function stabilizes. . Orders: Orders Complete Blood Count Auto Diff 2 Weeks R60.9 - Edema, unspecified Basic Metabolic Panel 2 Weeks R60.9 - Edema, unspecified Uric Acid 2 Weeks R60.9 - Edema, unspecified Medications: New furosemide (Lasix) 20 mg PO DAILY 30 tabs 0RF cephalexin 250 mg PO Q8H 21 caps 0RF Discontinued bumetanide Discontinued Reason: Doctor's Order 1 mg PO DAILY 30 tabs 0RF prednisone Discontinued Reason: Patient no longer taking 40 mg (4 x 10 mg) PO DAILY 30 days 120 tabs 1RF Coding Level of Care Code Est Pt Level 4 (22412) Diagnoses Edema R60.9 CKD (chronic kidney disease) N18.9 Carotid stenosis, bilateral I65.23 Primary hypertension I10 Hypertension type: primary hypertension
== END 2023-11-26 10:33 | disposition home or self-care (01) ==
LOC: HO.HKA 10:05
PROVIDERS: PCP Family Medicine; Visit Provider Internal Medicine Hypertension Specialist
DX: R60.9 Edema, unspecified (principal); I12.9 Hypertensive chronic kidney disease with stage 1 through stage 4 chronic kidney disease, or unspecified chronic kidney disease; N18.9 Chronic kidney disease, unspecified; I65.23 Occlusion and stenosis of bilateral carotid arteries
CPT/HCPCS: 99214

== ENCOUNTER → 2023-11-26 10:05 | Outpatient (BNVA) | payer MEDICARE, OTHER, SELFPAY | PROVIDERS: PCP Family Medicine; Visit Provider Internal Medicine Hypertension Specialist | DX: I12.9 Hypertensive chronic kidney disease with stage 1 through stage 4 chronic kidney disease, or unspecified chronic kidney disease (principal); N18.9 Chronic kidney disease, unspecified; I65.23 Occlusion and stenosis of bilateral carotid arteries | CPT/HCPCS: 99212 ==

== ENCOUNTER 2023-12-10 11:38 | Outpatient (REF) | payer MEDICARE, OTHER, SELFPAY ==
[2023-12-10 13:14] LABS: MANUAL DIFF FLAG NO
[2023-12-10 13:26] LABS: Basophils Absolute Auto 0.1 X10*3/uL (0.0-0.2); Basophils Percent Auto 0.4 % (0-2); Eosinophils Absolute Auto 0.1 X10*3/uL (0.0-0.4); Eosinophils Percent Auto 0.7 % (0-4); Hemoglobin 13.5 g/dl (14.0-18.0); Imm Gran Abs Auto 0.07 X10*3/uL (0.00-0.03); Imm Gran Pct Auto 0.5 % (0.0-0.4); Lymphocytes Absolute Auto 3.3 X10*3/uL (1.2-4.9); Lymphocytes Percent Auto 24.7 % (20-40); Mean Corpuscular HGB Conc 32.9 g/dl (31.0-36.0); Mean Corpuscular Hemoglobin 29.9 pg (27.0-33.0); Mean Corpuscular Volume 90.7 fL (80.0-98.0); Mean Platelet Volume 11.1 fL (9.4-12.4); Monocytes Absolute Auto 1.4 X10*3/uL (0.1-1.2); Monocytes Percent Auto 10.3 % (2-11); Neutrophils Absolute Auto 8.6 x10*3/uL (2.0-8.3); Neutrophils Percent Auto 63.4 % (45-73); Platelet Count 465 X10*3/uL (160-400); Red Blood Count 4.52 X10*6/uL (4.60-5.80); Red Cell Distribution Width 12.9 % (11.0-16.0); White Blood Count 13.5 X10*3/uL (4.8-10.8)
[2023-12-10 13:32] LABS: Anion Gap 11 (12-20); Blood Urea Nitrogen 34 mg/dL (9-16); Calcium 9.4 mg/dL (8.4-10.2); Carbon Dioxide 30 mmol/L (22-29); Chloride 107 mmol/L (96-108); Estimated Glomerular Filt Rate 41; Glucose Random 95 mg/dL (60-115); Potassium 3.7 mmol/L (3.3-5.1); Sodium 144 mmol/L (135-145); Uric Acid 11.4 mg/dL (3.4-7.0)
== END 2023-12-10 11:39 | disposition home or self-care (01) ==
LOC: HO.HMGCLDS 11:38
PROVIDERS: Visit Provider Internal Medicine Hypertension Specialist
DX: R60.9 Edema, unspecified (principal)
CPT/HCPCS: 36415; 80048; 84550; 85025

== ENCOUNTER 2023-12-12 12:09 | Outpatient (AMB) | payer MEDICARE, OTHER, SELFPAY ==
[2023-12-12 12:10] VITALS: BP 114/50; PULSE 61; O2SAT 95; BMI 36.5
--- NOTE | 2023-12-12 12:10 | HO.NEPHOV ---
Vital Signs 12/12/23 12:10 Height 5 ft 7 in Weight 233 lb BMI 36.5 BP 114/50 L Blood Pressure Location Lt brachial Position Sitting Pulse 61 Pulse Source Pulse Oximeter Pulse Oximetry (%) 95 Oxygen Delivery Method Room Air Intake Visit Reasons: Edema/ Conf Nfl Player Required: No Accompanied by: Self / Same As Patient Allergies watermelon [WATERMELON] Allergy (Severe, Verified 12/12/23 12:11) ANAPHYLAXIS Iodinated Contrast Media [IV CONTRAST] Allergy (Intermediate, Verified 12/12/23 12:11) LIGHT HEADED AND SHORTNESS OF BREATH HPI Comments Details: . Kiran is a pleasant 68-year-old man with a history of hypertension COPD with peripheral vascular disease. He has had significantly leg edema. He was on amlodipine which has been discontinued recently. He is on Lasix 20 mg a day. He has underlying CKD with a serum creatinine of around 1.2-1.3 at baseline. Recently there has been a bump in serum creatinine up to 1.6. He was on lisinopril 20 mg a day which has been discontinued few months ago. The diuretics are being adjusted based on the creatinine but he continues to have leg edema and hence this referral. He is history of COPD and obstructive sleep apnea. Was recently hospitalized for exacerbation of COPD. He is currently on prednisone. He had an echocardiogram which did not reveal any significant right sided heart failure. He has a significant history of smoking for almost 40 years 1-2 packs per day he quit smoking about 15 years ago. Review of system was positive for significantly leg edema. He had increased urinary frequency which has resolved. No nausea vomiting no chest pain no palpitations no fever no rash 10/28/2023. He admits taking Bumex for for a week. He took it for few days. Repeat serum creatinine was 1.62. No increase in BUN. He continues her leg edema. Urine did not reveal any significant proteinuria 11/26/2023. He was on Bumex 0.5 mg once a day. However he felt that the leg edema was worsening. He went to the ER and he had more swelling. Bumex was increased to 1 mg a day. However is still believes that the edema gets worse with a high dose of Bumex. He has significant redness in his legs which is pain Doppler did not reveal any DVTs 12/12/2023. After course of antibiotics the erythema has improved. He is still has edema. He is tolerating Lasix well. 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 [facility] Medical History Chronic lung disease COPD with acute exacerbation Chronic lung disease Tubular adenoma of colon (~2005) COPD (chronic obstructive pulmonary disease) Pulmonary nodules RAYMOND on CPAP Chronic rhinitis Asthma-COPD overlap syndrome PAF (paroxysmal atrial fibrillation) (~2017) Echocardiogram abnormal Encounter for screening for lung cancer Edema leg Venous insufficiency of both lower extremities AC (acromioclavicular) joint arthritis BPH (benign prostatic hyperplasia) Seasonal allergies Hyperlipidemia Surgical History History of appendectomy History of esophagogastroduodenoscopy (EGD) History of total left hip replacement (~2019) History of repair of right rotator cuff (~2017) History of nasal septoplasty (~2008) History of colonoscopy History of cataract (~2009) Family History Father No problems noted. Mother CAD (coronary artery disease) CHF (congestive heart failure) HTN (hypertension) Brother No problems noted. Brother No problems noted. Sister No problems noted. Sister No problems noted. Sister Mental health disorder Son No problems noted. Son No problems noted. Social History Household Members: Spouse, Family and Children Housing: House Do you presently have visiting nurse or other home services: No Alcohol intake: current Alcohol intake frequency: holidays/special occasions only Patient Tobacco Use Status: Former Tobacco user Tobacco use type: Cigarette Years Smoked: 40 years e-Cigarette/Vaping Use: Former Use Second Hand Smoke Exposure: No Advance Directives Date on File: 10/10/22 service: No Current occupational status: retired Cognitive needs: No Hearing needs: No Vision needs: No Physical Exam Vital Signs: Last Vital Signs Pulse 61 12/12/23 12:10 BP 114/50 L 12/12/23 12:10 Pulse Ox 95 12/12/23 12:10 Oxygen Delivery Method Room Air 12/12/23 12:10 BMI result Body Mass Index 36.5 Const General: comfortable; No acute distress Orientation/consciousness: patient oriented x3 Eyes General: appearance normal, both eyes and all related structures Visual [place]: normal visual [place] by confrontation Neck Neck: Yes supple and Yes no JVD Resp Effort & Inspection: normal respiratory effort and respiratory effort not decreased Auscultation: rhonchi Cardio Palpation: no palpable S3 and no palpable S4 Heart sounds: no rubs GI Inspection: Yes normal to inspection Palpation (GI): Soft to palpation Percussion: Yes normal to percussion Auscultation: normal bowel sounds General: No CVA tenderness Back/Spine/Pelvis Back: No CVA tenderness Skin General skin exam: no petechiae and no purpura Neuro General: patient oriented x3 and no focal motor deficits Extrem Other: Erythema in both lower extremities with tenderness General: No clubbing and Yes edema Results Reviewed Nephrology Results: Hgb 13.5 g/dl (14.0-18.0) L 12/10/23 WBC 13.5 X10*3/uL (4.8-10.8) H 12/10/23 Plt Count 465 X10*3/uL (160-400) H 12/10/23 Sodium 144 mmol/L (135-145) 12/10/23 Potassium 3.7 mmol/L (3.3-5.1) 12/10/23 Chloride 107 mmol/L (96-108) 12/10/23 Carbon Dioxide 30 mmol/L (22-29) H 12/10/23 BUN 34 mg/dL (9-16) H 12/10/23 Creatinine 1.66 mg/dL (0.5-1.4) H 12/10/23 Calcium 9.4 mg/dL (8.4-10.2) 12/10/23 Urine Protein Negative mg/dL (Neg-Trace) 10/09/23 Urine Creatinine 143.86 mg/dL 10/09/23 Renal US 10/11/23 Assessment & Plan Assessment & Plan (1) Edema: Code(s): R60.9 - Edema, unspecified Category: Medical (2) CKD (chronic kidney disease): Code(s): N18.9 - Chronic kidney disease, unspecified Category: Medical (3) Carotid stenosis, bilateral: Code(s): I65.23 - Occlusion and stenosis of bilateral carotid arteries Category: Medical (4) Hypertension: Code(s): I10 - Essential (primary) hypertension Category: Medical Qualifiers: Hypertension type: primary hypertension Qualified Code(s): I10 - Essential (primary) hypertension Plan . 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 Superimposed CHATO due to hypoperfusion in the setting of LATONIA inhibitors and diuretics. Renal ultrasonogram was unremarkable No significant proteinuria serum immunofixation shows IgG kappa monoclonal protein Urinary sediments are bland therefore glomerular/ interstitial disease seem unlikely Echocardiogram revealed normal right ventricular pressures without evidence of right heart failure Serum albumin was relatively low at 3.1. Mild elevation in alkaline phosphatase and ALT; repeat LFTs were normal Change Lasix to 20 mg b.i.d. Stay on low-sodium diet. Leg elevation No need for Doppler ultrasonogram of the renal arteries at this time. Avoid calcium channel blockers like amlodipine Agree with holding LATONIA inhibitors until renal function stabilizes. . Orders: Orders Basic Metabolic Panel 3 Weeks N18.9 - Chronic kidney disease, unspecified, R60.9 - Edema, unspecified Medications: Changed From furosemide (Lasix) 20 mg PO DAILY 30 tabs 0RF To furosemide (Lasix) 20 mg PO BID 60 tabs 1RF Coding Level of Care Code Est Pt Level 4 (65024) Diagnoses Edema R60.9 CKD (chronic kidney disease) N18.9 Carotid stenosis, bilateral I65.23 Primary hypertension I10 Hypertension type: primary hypertension
== END 2023-12-12 12:25 | disposition home or self-care (01) ==
PROVIDERS: PCP Family Medicine; Visit Provider Internal Medicine Hypertension Specialist
DX: R60.9 Edema, unspecified (principal); I12.9 Hypertensive chronic kidney disease with stage 1 through stage 4 chronic kidney disease, or unspecified chronic kidney disease; N18.9 Chronic kidney disease, unspecified; I65.23 Occlusion and stenosis of bilateral carotid arteries
CPT/HCPCS: 99214

== ENCOUNTER → 2023-12-12 12:09 | Outpatient (BNVA) | payer MEDICARE, OTHER, SELFPAY | PROVIDERS: PCP Family Medicine; Visit Provider Internal Medicine Hypertension Specialist | DX: R60.9 Edema, unspecified (principal); I12.9 Hypertensive chronic kidney disease with stage 1 through stage 4 chronic kidney disease, or unspecified chronic kidney disease; N18.9 Chronic kidney disease, unspecified; I65.23 Occlusion and stenosis of bilateral carotid arteries | CPT/HCPCS: 99212 ==

== ENCOUNTER → 2023-12-27 10:42 | Outpatient (AMB) | payer MEDICARE, OTHER, SELFPAY ==
--- NOTE | 2023-12-27 10:56 | MHC.PC.OV ---
Vital Signs 12/27/23 11:04 12/27/23 11:06 Height 5 ft 9 in Weight 216 lb 6 oz BMI 31.9 BP 130/40 L 144/58 H Blood Pressure Location Lt brachial Lt brachial Position Sitting Sitting Respiration 24 H 24 H Pulse 146 H 75 Pulse Source Pulse Oximeter Pulse Oximeter Temp 98.7 F Temp Source Oral Pulse Oximetry (%) 92 96 Oxygen Delivery Method Room Air Room Air Intake Visit Reasons: f/u hypertension, renal failure Intake Note: follow up for hypertension pt came in with sob x1week headache since sat of this week and diarrha since saturday cough x1week with discolored phlem. Allergies watermelon [WATERMELON] Allergy (Severe, Verified 12/27/23 11:00) ANAPHYLAXIS Iodinated Contrast Media [IV CONTRAST] Allergy (Intermediate, Verified 12/27/23 11:00) LIGHT HEADED AND SHORTNESS OF BREATH Tobacco use date assessed: 09/26/23 Dental Screening Dental Screen Date: 09/26/23 HPI f/u hypertension, renal failure HPI Details 68 y/o male presents today with complaints of shortness of breath x1 week and diarrhea since Saturday. Also has complaints of a cough x1 week with discolored phlegm. Hx of COPD and CHF. Reports abd. pain. Denies any significant weight gain the last few days. Reports some lower extremity edema. Has taken prednisone 30mg this morning. He notes he was started on this about 2 weeks ago with not much relief of symptoms. [facility] Medical History Chronic lung disease COPD with acute exacerbation Chronic lung disease Tubular adenoma of colon (~2005) COPD (chronic obstructive pulmonary disease) Pulmonary nodules RAYMOND on CPAP Chronic rhinitis Asthma-COPD overlap syndrome PAF (paroxysmal atrial fibrillation) (~2017) Echocardiogram abnormal Encounter for screening for lung cancer Edema leg Venous insufficiency of both lower extremities AC (acromioclavicular) joint arthritis BPH (benign prostatic hyperplasia) Seasonal allergies Hyperlipidemia Surgical History History of appendectomy History of esophagogastroduodenoscopy (EGD) History of total left hip replacement (~2019) History of repair of right rotator cuff (~2017) History of nasal septoplasty (~2008) History of colonoscopy History of cataract (~2009) Family History Father No problems noted. Mother CAD (coronary artery disease) CHF (congestive heart failure) HTN (hypertension) Brother No problems noted. Brother No problems noted. Sister No problems noted. Sister No problems noted. Sister Mental health disorder Son No problems noted. Son No problems noted. Social History Household Members: Spouse, Family and Children Housing: House Do you presently have visiting nurse or other home services: No Alcohol intake: current Alcohol intake frequency: holidays/special occasions only Patient Tobacco Use Status: Former Tobacco user Tobacco use type: Cigarette Years Smoked: 40 years e-Cigarette/Vaping Use: Former Use Second Hand Smoke Exposure: No Advance Directives Date on File: 10/10/22 service: No Current occupational status: retired Cognitive needs: No Hearing needs: No Vision needs: No Questionnaire Thrive Questionnaire Date Thrive assessed: 08/31/23 STEVEN-7 AMB Questionnaire STEVEN-7 Date STEVEN - 7 assessed: 06/27/23 Source: Developed by Drs. Kwame William, Cayla Candelario, Damian Lee and colleagues, with an educational maria g from [employer]. Review of Systems Const Denies chills, Denies fatigue, Denies fever(s), Denies headache(s) and Denies weakness ENT Denies dizziness and Denies headache(s) Card Reports dyspnea Resp Reports cough and Reports dyspnea GI Reports abdominal pain and Reports diarrhea Musc Denies numbness and Denies tingling Neuro Denies dizziness, Denies headache(s), Denies numbness, Denies tingling and Denies weakness Psych Denies anxiety and Denies depression Endo Denies fatigue Physical exam (Primary Care) Vital Signs: Last Vital Signs Temp 98.7 F 12/27/23 11:04 Pulse 75 12/27/23 11:06 Resp 24 H 12/27/23 11:06 BP 144/58 H 12/27/23 11:06 Pulse Ox 96 12/27/23 11:06 Oxygen Delivery Method Room Air 12/27/23 11:06 BMI result Body Mass Index 31.9 Tobacco/Smoking Status: Tobacco use Status Tobacco use date assessed 09/26/23 12/27/23 10:58 Patient Tobacco Use Status Former Tobacco user 12/27/23 10:58 Tobacco use type Cigarette 12/27/23 10:58 e-Cigarette/Vaping Use Former Use 12/27/23 10:58 Thrive Assessment: Date of Thrive Assessment Date Thrive assessed 08/31/23 12/27/23 10:58 Const General: well developed; No acute distress Nutritional Appearance: well nourished Orientation/consciousness: patient oriented x3 HENMT Other: Distended neck veins Head: Yes normocephalic and Yes atraumatic Eyes General: appearance normal, both eyes and all related structures Pupils: Equal, round and reactive pupils present EOM: EOMs intact bilaterally Resp Other: Decreased air movement with diffused wheezing, squeaks, pops throughout all lung correa Effort & Inspection: abnormal respiratory effort Auscultation: not clear to auscultation bilaterally Cardio Rate: tachycardic Neuro General: patient oriented x3 and gait normal Cranial nerves: Yes Equal, round and reactive pupils present Extrem Other: 1+ edema at his feet Psych Affect: normal affect Assessment and Plan Assessment & Plan (1) Acute exacerbation of chronic obstructive pulmonary disease: Code(s): J44.1 - Chronic obstructive pulmonary disease with (acute) exacerbation Plan: Patient?with?history?of?COPD,?history?of?CHF?and?history?pneumonias Presents?with?shortness?of?breath, dyspnea,?tachycardia and?severe?cough?with?hypoxia. He?has?taking?prednisone?30?mg?daily?for?the?past?2?weeks?but?is?worsening Also?has?orthopnea?and?distended?neck?veins?but?no?weight?gain.??He?does?have?some?lower?extremity?edema. Likely?COPD?exacerbation?but by?likely?CHF?component?as?well.??Unclear?if?this?is?all?due?to?an?underlying?pneumonia. Also?has?issues?with?diarrhea?at?this?time?so?may?have?a?GI?infection?as?an?underlying?cause. At?this?point,?I?have?discussed?with?the?patient?that?he?has?been?taking?prednisone?for?the?past?2?weeks?without?improving?and?should?be?evaluated?and?treated?in?the?emergency?department. He?does?not?have?a?safe?way?to?get?to?the?emergency?department?so?we?will?send?him?by?ambulance (2) Shortness of breath: Code(s): R06.02 - Shortness of breath Plan: As?above (3) Diarrhea: Code(s): R19.7 - Diarrhea, unspecified Plan: As above, pt will go to ED Coding Level of Care Code Est Pt Level 4 (85363) Diagnoses Acute exacerbation of chronic obstructive pulmonary disease J44.1 Shortness of breath R06.02 Diarrhea R19.7
[2023-12-27 11:04] VITALS: BP 130/40; PULSE 146; RESP 24; TEMP 37.1; O2SAT 92; BMI 31.9
[2023-12-27 11:06] VITALS: BP 144/58; PULSE 75; RESP 24; O2SAT 96
== END ==
PROVIDERS: PCP Family Medicine; Visit Provider Family Medicine
DX: J44.1 Chronic obstructive pulmonary disease with (acute) exacerbation (principal); R06.02 Shortness of breath; R19.7 Diarrhea, unspecified
CPT/HCPCS: 99214

== ENCOUNTER 2023-12-27 12:05 | Inpatient (IN) | payer MEDICARE, OTHER, SELFPAY ==
[2023-12-27] VITALS (8 sets, daily range): BP systolic 140–155; BP diastolic 52–68; PULSE 77–96; RESP 18–28; TEMP 36.8–37.3; O2SAT 91–99; BMI 33.1; BMI 31.4
--- NOTE | 2023-12-27 | ECG_ITS ---
Test Reason : QT CHECK Blood Pressure : / mmHG Vent. Rate : 085 BPM Atrial Rate : 085 BPM P-R Int : 168 ms QRS Dur : 100 ms QT Int : 380 ms P-R-T Axes : 070 035 062 degrees QTc Int : 452 ms Normal sinus rhythm Normal ECG When compared with ECG of 30-AUG-2023 14:08, No significant change was found Referred By: Jackie Edmond Electronically Signed By:CHRISSY WIGGINS MD
--- NOTE | ~2023-12-27 | XR_ITS ---
EXAMINATION: XR CHEST CLINICAL INFORMATION: Shortness of breath. COMPARISON: 10/23/2024 TECHNIQUE: Frontal view of the chest was obtained. FINDINGS: Patchy airspace opacities in the lung bases, particularly in the right middle lobe, may correspond to aspiration or pneumonia. No pneumothorax or pleural effusion. Cardiac and mediastinal contours are normal. No acute osseous findings. XR/XR chest 1V IMPRESSION: Patchy airspace opacities in the lung bases, particularly in the right middle lobe, may correspond to aspiration or pneumonia.
--- NOTE | 2023-12-27 12:08 | ED_ITS ---
HPI - General Adult General Chief complaint: Dyspnea Stated complaint: SOB Time Seen by Provider: 12/27/23 12:06 Source: patient and EMS Mode of arrival: EMS Limitations: no limitations History of Present Illness ED Provider: Adry LANGSTON HPI narrative: This is a 60-year-old male history of renal failure, CKD, CHF, hypertension, respiratory failure, COPD, AFib anticoagulated, asthma, obesity presenting to the emergency department complaints of shortness of breath, productive cough since Saturday/ 5 days. Reports he went to his PCP where he was 88% on RA, he is not on home O2. He has also been having vomiting, diarrhea, fevers, chills. Was told to come in here for further eval. + covid. Denies CP, blood in stool or vomit. Related Data Home Medications ?Medication ?Instructions ?Recorded ?Confirmed CPAP (CPAP Machine/Device) 02/15/22 12/27/23 nebulizers 02/15/22 12/27/23 tezepelumab-ekko 210 mg/1.91 mL 210 mg subcut Q4W 08/06/23 12/27/23 (110 mg/mL) subcutaneous pen injector (Tezspire) metoprolol succinate 100 mg 100 mg PO BEDTIME 08/30/23 12/27/23 tablet,extended release 24 hr theophylline 300 mg 300 mg PO Q48H 08/30/23 12/27/23 tablet,extended release,12 hr prednisone 10 mg tablet 10 mg PO DAILY 12/12/23 12/27/23 Previous Rx's ?Medication ?Instructions ?Recorded bupropion HCl 75 mg tablet 150 mg (2 x 75 mg) PO BID 90 days 01/01/23 #360 tabs dronedarone 400 mg tablet (Multaq) 400 mg PO BID 90 days #180 tabs 05/10/23 apixaban 5 mg tablet (Eliquis) 5 mg PO BID #180 tabs 05/21/23 budesonide 0.5 mg/2 mL suspension 0.5 mg (2 mL) inhalation BID #360 05/21/23 for nebulization mL arformoterol 15 mcg/2 mL solution 15 mcg (2 mL) inhalation BID #360 09/18/23 for nebulization (Brovana) mL levalbuterol HCl 1.25 mg/3 mL 1.25 mg (3 mL) inhalation BID 90 09/18/23 solution for nebulization days #540 mL tamsulosin 0.4 mg capsule (Flomax) 0.4 mg PO BID 90 days #180 caps 09/20/23 montelukast 10 mg tablet 10 mg PO DAILY #90 tabs 09/23/23 albuterol sulfate 90 mcg/actuation 2 puff inhalation QID PRN 10/07/23 aerosol inhaler Shortness Of Breath #8.5 grams roflumilast 500 mcg tablet 500 mcg PO DAILY #90 tabs 11/20/23 cephalexin 250 mg capsule 250 mg PO Q8H #21 caps 11/26/23 furosemide 20 mg tablet (Lasix) 20 mg PO BID #60 tabs 12/12/23 atorvastatin 80 mg tablet 80 mg PO DAILY #90 tabs 12/27/23 Allergies Allergy/AdvReac Type Severity Reaction Status Date / Time watermelon [WATERMELON] Allergy Severe ANAPHYLAXIS Verified 12/27/23 12:12 Iodinated Contrast Media Allergy Intermediate LIGHT Verified 12/27/23 12:12 [IV CONTRAST] HEADED AND SHORTNESS OF BREATH Review of Systems 2 Review of Systems: Yes all other systems are reviewed and are negative PMFSH Past Medical History Attestation statement: The following information was validated with the patient. Source: old records reviewed and nursing notes reviewed Medical History Chronic lung disease COPD with acute exacerbation Chronic lung disease Tubular adenoma of colon (~2005) COPD (chronic obstructive pulmonary disease) Pulmonary nodules RAYMOND on CPAP Chronic rhinitis Asthma-COPD overlap syndrome PAF (paroxysmal atrial fibrillation) (~2017) Echocardiogram abnormal Encounter for screening for lung cancer Edema leg Venous insufficiency of both lower extremities AC (acromioclavicular) joint arthritis BPH (benign prostatic hyperplasia) Seasonal allergies Hyperlipidemia Surgical History History of appendectomy History of esophagogastroduodenoscopy (EGD) History of total left hip replacement (~2019) History of repair of right rotator cuff (~2017) History of nasal septoplasty (~2008) History of colonoscopy History of cataract (~2009) Family History Family History Father No problems noted. Mother CAD (coronary artery disease) CHF (congestive heart failure) HTN (hypertension) Brother No problems noted. Brother No problems noted. Sister No problems noted. Sister No problems noted. Sister Mental health disorder Son No problems noted. Son No problems noted. Social History Social History Household Members: Spouse, Family and Children Housing: House Do you presently have visiting nurse or other home services: No Alcohol intake: current Alcohol intake frequency: holidays/special occasions only Patient Tobacco Use Status: Former Tobacco user Tobacco use type: Cigarette Years Smoked: 40 years Smoked in Last 30 Days: No e-Cigarette/Vaping Use: Former Use Second Hand Smoke Exposure: No Use of substances other than those prescribed or required for medical reasons: No Advance Directives: Yes Advance Directives on File: Yes Advance Directives Date on File: 10/10/22 Do you have a plan to hurt others: No Plan service: No Current occupational status: retired Cognitive needs: No Hearing needs: No Vision needs: No Physical Exam ED Vital Signs: Vital Signs - 24 hr 12/27/23 12:07 12/27/23 12:15 12/27/23 12:29 Temperature 98.3 F 98.3 F Pulse Rate 81 81 77 Respiratory Rate 27 H 27 H 21 H Blood Pressure 141/52 H 141/52 H Pulse Oximetry 93 93 Oxygen Delivery Method Room Air Room Air BMI result Body Mass Index 33.1 vss Appearance: Alert.? Oriented X3.? No acute distress.? Head: Normocephalic, atraumatic, no step-offs or deformities Eyes: Pupils equal, round and reactive to light.? ENT: Pharynx normal.? Neck: Normal inspection.? Neck supple.? CVS: Normal heart rate and rhythm.? Pulses normal.? Respiratory: + mild respiratory distress.? Breath sounds diminished with wheezing bilaterally w/ coars breath sounds b/l..? Abdomen: Soft and nontender.? Skin: Skin warm and dry.? Normal skin color.? Normal skin turgor.? Extremities: No lower extremity edema.? No calf ttp. 5/5 strength to bilateral upper and lower extremities Back: No midline tenderness, no C-spine tenderness, full range of motion, no CVA tenderness bilaterally Neuro: Oriented X 3.? No motor deficit.? No sensory deficit. CN 2-12 intact Course Reevaluation(s) Reevaluation #1: CBC with leukocytosis and left shift. Chemistry with seems kidney injury this is likely secondary to CKD this is not a new finding. Normal lactic acid. Troponin BNP pending. Chest x-ray pending. Time: 13:09 Reevaluation #2: Lactic negative. Patient noted to have pneumonia on x-ray. Ceftriaxone as well as a thorough ordered. He has already been given Solu-Medrol. As well as multiple breathing treatments. He is now 93% on room air. Time: 13:57 Reevaluation #3: Plan hospital admission Time: 14:00 Medications Administered Discontinued Medications Generic Name Dose Route Start Last Admin Trade Name Freq PRN Reason Stop Dose Admin Albuterol Sulfate 2.5 mg/ 0 mg 12/27/23 12:19 12/27/23 12:24 Albuterol/Ipratropium 3 ml INHALE 12/27/23 12:20 5 dose ONCE ONE Administration Ceftriaxone Sodium 1 gm/ 50 mls @ 100 mls/hr 12/27/23 12:19 12/27/23 13:38 Sodium Chloride IV 12/27/23 12:48 Infused ONCE ONE Infusion Methylprednisolone Sodium Succinate 125 mg 12/27/23 12:21 12/27/23 12:49 Methylprednisolone Sod Succ 125 Mg/2 Ml Vial IVPUSH 12/27/23 12:22 125 mg ONCE ONE Administration Medical Decision Making Medical Decision Making [facility] Narrative: 1209 60-year-old male presents with shortness of breath, cough Physical exam diminished breath sounds and wheezing bilaterally b/l coarse breathsound History and physical exam concerning for pneumonia versus chronic lung disease versus asthma versus viral illness. Unlikely ACS, PE, dissection. Plan labs, imaging, viral tests Plan- labs, imaging Differential Diagnosis Differential Diagnoses: The differential diagnosis associated with the presentation includes History and physical exam concerning for pneumonia versus chronic lung disease versus asthma versus viral illness. Unlikely ACS, PE, dissection. Admission/Observation Consideration of admission/observation: Escalation of care including admission/observation considered possible Consult Healthcare Provider Management of the patient was discussed with: Hospitalist Lab Data [facility] Lab Attestation statement: I reviewed the patient's lab results. 12/27/23 12:36 12/27/23 12:36 Labs: Lab Results 12/27/23 12/27/23 12/27/23 Range/Units 12:36 12:38 12:42 WBC 17.7 H (4.8-10.8) X10*3/uL RBC 4.42 L (4.60-5.80) X10*6/uL Hgb 13.1 L (14.0-18.0) g/dl Hct 40.9 L (42.0-52.0) % MCV 92.5 (80.0-98.0) fL MCH 29.6 (27.0-33.0) pg MCHC 32.0 (31.0-36.0) g/dl RDW 12.6 (11.0-16.0) % Plt Count 357 (160-400) X10*3/uL MPV 10.2 (9.4-12.4) fL Immature Gran % (Auto) 1.2 H (0.0-0.4) % Neut % (Auto) 90.7 H (45-73) % Lymph % (Auto) 3.6 L (20-40) % [place] % (Auto) 4.1 (2-11) % Eos % (Auto) 0.2 (0-4) % Baso % (Auto) 0.2 (0-2) % Lymph # (Auto) 0.6 L (1.2-4.9) X10*3/uL [place] # (Auto) 0.7 (0.1-1.2) X10*3/uL Eos # (Auto) 0.0 (0.0-0.4) X10*3/uL Baso # (Auto) 0.0 (0.0-0.2) X10*3/uL Abs Immat Gran (auto) 0.21 H (0.00-0.03) X10*3/uL Absolute Neuts (auto) 16.1 H (2.0-8.3) x10*3/uL Absolute Nucleated RBC 0.000 (0.0-0.012) X10*3/uL Nucleated RBC % (auto) 0.0 (0.0-0.2) /100WBC Smear Tech's Comments VERIFIED PT 19.2 H D (11.1-13.3) SEC INR 1.6 H (0.9-1.1) Sodium 143 (135-145) mmol/L Potassium 4.2 (3.3-5.1) mmol/L Chloride 106 (96-108) mmol/L Carbon Dioxide 28 (22-29) mmol/L Anion Gap 13 (12-20) BUN 22 H (9-16) mg/dL Creatinine 1.53 H (0.5-1.4) mg/dL Estim Creat Clear Calc 54.3 Estimated GFR 45 Random Glucose 106 (60-115) mg/dL Lactic Acid 1.4 (0.5-2.0) mmol/L Calcium 9.6 (8.4-10.2) mg/dL Magnesium 2.4 (1.6-2.6) mg/dL Total Bilirubin 0.6 (0.0-1.0) mg/dL AST 46 H (5-37) U/L ALT 51 H (0-40) U/L Alkaline Phosphatase 131 H (39-117) U/L Troponin I High Sens 7.5 (<3.5-35.0) ng/L Total Protein 7.6 (6.5-8.0) g/dL Albumin 3.5 (3.5-5.0) g/dL Lipase 12 (8-78) U/L Influenza Type A (PCR) NEGATIVE (Negative) Influenza Type B (PCR) NEGATIVE (Negative) RSV RNA Qual (PCR) NEGATIVE (Negative) SARS-CoV-2 RNA (RT-PCR) NEGATIVE (Negative) Independent Interpretation I performed an independent interpretation of an: Plain X-Ray (XR/XR chest 1V IMPRESSION: Patchy airspace opacities in the lung bases, particularly in the right middle lobe, may correspond to aspiration or pneumonia. ) Radiology Impression Discussion of test interpretation with radiology: I have reviewed the radiologist's reading. External Record Review External record reviewed: Inpatient record, Office record, Outpatient record, Prior outpatient labs, Prior outpatient radiology, Primary care record and Outside ED record Prescription Management I considered prescription management with: Antibiotic Chronic Conditions Patient?s care impacted by: Other (choric respiratory d/o, HTN, obesity, ) Critical Care Time Critical Care Time Critical Care Time: Yes Total Critical Care Time: 35 Attestation: I attest to this time spent taking care of the patient, obtaining history, physical, reviewing labs, imaging, speaking to my attending, specialist or hospitalist. Discharge Plan Discharge Clinical Impression: Pneumonia, Chronic lung disease Prescriptions: No Action bupropion HCl 75 mg tablet 150 mg PO BID 90 Days Qty: 360 3RF Multaq 400 mg tablet 400 mg PO BID 90 Days Qty: 180 3RF Rx Instructions: must administer with a meal/food Eliquis 5 mg tablet 5 mg PO BID Qty: 180 3RF budesonide 0.5 mg/2 mL suspension for nebulization 0.5 mg inhalation BID Qty: 360 3RF tamsulosin [Flomax] 0.4 mg capsule 0.4 mg PO BID 90 Days Qty: 180 3RF montelukast 10 mg tablet 10 mg PO DAILY Qty: 90 3RF roflumilast 500 mcg tablet 500 mcg PO DAILY Qty: 90 3RF metoprolol succinate 100 mg tablet extended release 24 hr 100 mg PO BEDTIME theophylline 300 mg tablet extended release 12 hr 300 mg PO Q48H Tezspire 210 mg/1.91 mL (110 mg/mL) Pen Injector 210 mg SUBCUT Q4W atorvastatin 80 mg tablet 80 mg PO DAILY Qty: 90 3RF (DME) nebulizers Misc See Rx Instructions .Route Rx Instructions: As directed (DME) CPAP Machine/Device Device See Rx Instructions .Route Rx Instructions: As directed arformoterol [Brovana] 15 mcg/2 mL solution for nebulization 15 mcg inhalation BID Qty: 360 3RF levalbuterol HCl 1.25 mg/3 mL solution for nebulization 1.25 mg inhalation BID 90 Days Qty: 540 3RF albuterol sulfate 90 mcg/actuation HFA aerosol inhaler 2 puff inhalation QID PRN (Reason: Shortness Of Breath) Qty: 8.5 11RF cephalexin 250 mg capsule 250 mg PO Q8H Qty: 21 0RF prednisone 10 mg tablet 10 mg PO DAILY furosemide [Lasix] 20 mg tablet 20 mg PO BID Qty: 60 1RF Print Language: Turkish
--- NOTE | 2023-12-27 12:13 | PC.NURSE ---
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
[2023-12-27] MEDS: Albuterol Sulfate 2.5 MG, Albuterol/Iprat 2.5/0.5MG 3 ML 3 ML INHALE (12:24)
[2023-12-27] MEDS: methylPREDNISolone Sod Succ 125 MG/2 ML VIAL IVPUSH (12:49)
[2023-12-27] MEDS: cefTRIAXone sodium 1 GM in 0.9 % Sodium Chloride 50 ML IV (12:49)
[2023-12-27 12:58] LABS: Basophils Percent Auto 0.2 % (0-2); Eosinophils Percent Auto 0.2 % (0-4); Hematocrit 40.9 % (42.0-52.0); Hemoglobin 13.1 g/dl (14.0-18.0); Imm Gran Abs Auto 0.21 X10*3/uL (0.00-0.03); Imm Gran Pct Auto 1.2 % (0.0-0.4); Lymphocytes Absolute Auto 0.6 X10*3/uL (1.2-4.9); Lymphocytes Percent Auto 3.6 % (20-40); MANUAL DIFF FLAG SCAN; Mean Corpuscular Hemoglobin 29.6 pg (27.0-33.0); Mean Corpuscular Volume 92.5 fL (80.0-98.0); Mean Platelet Volume 10.2 fL (9.4-12.4); Monocytes Absolute Auto 0.7 X10*3/uL (0.1-1.2); Monocytes Percent Auto 4.1 % (2-11); Neutrophils Absolute Auto 16.1 x10*3/uL (2.0-8.3); Neutrophils Percent Auto 90.7 % (45-73); Platelet Count 357 X10*3/uL (160-400); Red Blood Count 4.42 X10*6/uL (4.60-5.80); Red Cell Distribution Width 12.6 % (11.0-16.0); SCAN SMEAR FLAG 1; White Blood Count 17.7 X10*3/uL (4.8-10.8)
[2023-12-27 13:01] LABS: INTERNATIONAL NORM RATIO 1.6 (0.9-1.1); Prothrombin Time 19.2 SEC (11.1-13.3)
[2023-12-27 13:04] LABS: Lactic Acid 1.4 mmol/L (0.5-2.0)
[2023-12-27 13:07] LABS: Alanine Aminotransferase 51 U/L (0-40); Albumin Level 3.5 g/dL (3.5-5.0); Alkaline Phosphatase 131 U/L (39-117); Anion Gap 13 (12-20); Aspartate Amino Transferase 46 U/L (5-37); Bilirubin Total 0.6 mg/dL (0.0-1.0); Blood Urea Nitrogen 22 mg/dL (9-16); Calcium 9.6 mg/dL (8.4-10.2); Carbon Dioxide 28 mmol/L (22-29); Chloride 106 mmol/L (96-108); Creatinine Clr Calc Pharmacy 54.3; Estimated Glomerular Filt Rate 45; Glucose Random 106 mg/dL (60-115); Lipase 12 U/L (8-78); Magnesium 2.4 mg/dL (1.6-2.6); Potassium 4.2 mmol/L (3.3-5.1); Sodium 143 mmol/L (135-145); Total Protein 7.6 g/dL (6.5-8.0)
[2023-12-27 13:14] LABS: Troponin-I High Sensitivity 7.5 ng/L (<3.5-35.0)
[2023-12-27 13:27] LABS: Influenza A PCR NEGATIVE (Negative); Influenza B PCR NEGATIVE (Negative); Resp Syncy Virus RNA Qual PCR NEGATIVE (Negative); SARS COV2 PCR INHOUSE NEGATIVE (Negative)
[2023-12-27 13:29] LABS: SLIDE REVIEW VERIFIED
[2023-12-27 14:23] LABS: B Type Natriuretic Peptide 120 pg/mL (<100)
[2023-12-27] MEDS: Azithromycin 500 MG in 0.9 % Sodium Chloride 250 ML 125 MG IV (14:35)
--- NOTE | 2023-12-27 15:27 | PHA.MEDREC ---
Addendum entered by Sheila Rodrigez RPh 12/27/23 16:04: Med rec reviewed. Original Note: Pharmacy Consult ? Medication Reconciliation Pharmacy has completed the medication reconciliation. Confirmed medications with list patient had on his phone. Patient was able to confirm the last time he took his Eliquis 5mg dose which was this morning. Patient also on Tezspire injection once every 4 weeks and he said he got it last roughly the week of 12/06 from that . He is also on a Theophylline 300mg tab Q48H and he last took that dose this AM.
--- NOTE | 2023-12-27 15:42 | PM.IMHP ---
History of Present Illness Date of Service: 12/27/23 Chief Complaint: SOB, dyspnea A 68 years old male with PMH of COPD\Asthma, ILD, RAYMOND, BPH, CHF, CKD, PAF among others presenting to the hospital with SOB and DYspnea for 4 days [employer]. He reports coughing greenish mucus over the last 4-5 days with associated shortness of breath and low O2 sat of 88%. reporting chills and subjective fever associated with nausea and vomiting with diarrhea. No chest pain, palpitations or urinary symptoms. His tested positive for Covid last week. In ED he tested -ve for Covid but CXR showed infiltrates suggestive of pneumonia and started on antibiotics. He also received steroids and nebulizers for signficant wheezing/ Admitted for further work up and treatment. Review of Systems Review of Systems: reports fever, chills or weakness No chest pain, palpitation having shortness of breath or coughing with wheezing No abdominal pain, nausea or vomiting No urinary symptoms No any rash or wounds [facility] Medical History Chronic lung disease COPD with acute exacerbation Chronic lung disease Tubular adenoma of colon (~2005) COPD (chronic obstructive pulmonary disease) Pulmonary nodules RAYMOND on CPAP Chronic rhinitis Asthma-COPD overlap syndrome PAF (paroxysmal atrial fibrillation) (~2017) Echocardiogram abnormal Encounter for screening for lung cancer Edema leg Venous insufficiency of both lower extremities AC (acromioclavicular) joint arthritis BPH (benign prostatic hyperplasia) Seasonal allergies Hyperlipidemia Family History Father No problems noted. Mother CAD (coronary artery disease) CHF (congestive heart failure) HTN (hypertension) Brother No problems noted. Brother No problems noted. Sister No problems noted. Sister No problems noted. Sister Mental health disorder Son No problems noted. Son No problems noted. Surgical History History of appendectomy History of esophagogastroduodenoscopy (EGD) History of total left hip replacement (~2019) History of repair of right rotator cuff (~2017) History of nasal septoplasty (~2008) History of colonoscopy History of cataract (~2009) Social History Household Members: Spouse, Family and Children Housing: House Do you presently have visiting nurse or other home services: No Alcohol intake: current Alcohol intake frequency: holidays/special occasions only Patient Tobacco Use Status: Former Tobacco user Tobacco use type: Cigarette Years Smoked: 40 years Smoked in Last 30 Days: No e-Cigarette/Vaping Use: Former Use Second Hand Smoke Exposure: No Use of substances other than those prescribed or required for medical reasons: No Advance Directives: Yes Advance Directives on File: Yes Advance Directives Date on File: 10/10/22 Do you have a plan to hurt others: No Plan service: No Current occupational status: retired Cognitive needs: No Hearing needs: No Vision needs: No Meds Allergies Allergy/AdvReac Type Severity Reaction Status Date / Time watermelon [WATERMELON] Allergy Severe ANAPHYLAXIS Verified 12/27/23 12:12 Iodinated Contrast Media Allergy Intermediate LIGHT Verified 12/27/23 12:12 [IV CONTRAST] HEADED AND SHORTNESS OF BREATH Active Medications: Current Medications Acetaminophen (Acetaminophen 325 Mg Tablet) 650 mg PO Q6H PRN PRN Reason: Pain, Mild (Pain Scale 1-3), fever or headache Albuterol Sulfate (Albuterol Sulfate (0.083%) 2.5 Mg/3 Ml Vial.Neb) 2.5 mg INHALE Q4H PRN PRN Reason: Shortness of Breath/Wheezing Albuterol/Ipratropium (Albuterol/Iprat 2.5/0.5mg 3 Ml Ampul.Neb) 3 ml INHALE RQ4H WHILE AWAKE DARREN Apixaban (Apixaban 5 Mg Tablet) 5 mg PO BID DARREN Benzonatate (Benzonatate 100 Mg Capsule) 100 mg PO TID PRN PRN Reason: Cough Calcium Carbonate (Calcium Carbonate 750 Mg Tab.Chew) 750 mg PO Q4H PRN PRN Reason: Heartburn Furosemide (Furosemide 40 Mg/4 Ml Vial) 40 mg IVPUSH DAILY DARREN; Protocol Azithromycin 500 mg/ Sodium (Chloride) 250 mls @ 125 mls/hr IV ONCE ONE Stop: 12/27/23 15:55 Last Admin: 12/27/23 14:35 Dose: 125 mls/hr Azithromycin 500 mg/ Sodium (Chloride) 250 mls @ 125 mls/hr IV Q24H DARREN Ceftriaxone Sodium 1 gm/ (Sodium Chloride) 50 mls @ 100 mls/hr IV Q24H [facility] Magnesium Hydroxide (Milk Of Magnesia 30 Ml Oral.Susp) 30 ml PO DAILY PRN PRN Reason: Constipation Melatonin (Melatonin 3 Mg Tablet) 6 mg PO BEDTIME PRN PRN Reason: Insomnia Methylprednisolone Sodium Succinate (Methylprednisolone Sod Succ 40 Mg/Ml Vial) 40 mg IVPUSH Q12H DARREN Ondansetron HCl (Ondansetron Hcl 4 Mg/2 Ml Vial) 4 mg IVPUSH Q8H PRN PRN Reason: Nausea and Vomiting Sodium Chloride (0.9 % Sodium Chloride Flush 3 Ml Syringe) 3 ml IVFLUSH QSHIFT [facility] Home Medications ?Medication ?Instructions ?Recorded ?Confirmed ?Last Taken ?Type CPAP (CPAP Machine/Device) 02/15/22 12/27/23 08/05/23 History nebulizers 02/15/22 12/27/23 08/05/23 History tezepelumab-ekko 210 mg/1.91 mL 210 mg subcut Q4W 08/06/23 12/27/23 12/05/23 History (110 mg/mL) subcutaneous pen injector (Tezspire) metoprolol succinate 100 mg 100 mg PO BEDTIME 08/30/23 12/27/23 12/27/23 08:00 History tablet,extended release 24 hr theophylline 300 mg 300 mg PO Q48H 08/30/23 12/27/23 12/27/23 08:00 History tablet,extended release,12 hr prednisone 10 mg tablet 10 mg PO DAILY 12/12/23 12/27/23 12/27/23 08:00 History Physical Exam Vital Signs and Narrative: Vital Signs: Last Vital Signs Temp 98.4 F 12/27/23 14:22 Pulse 88 12/27/23 14:22 Resp 28 H 12/27/23 14:22 BP 140/54 H 12/27/23 14:22 Pulse Ox 92 12/27/23 14:22 O2 Del Method Room Air 12/27/23 14:22 BMI result Body Mass Index 33.1 Const: Other: Constitutional : Awake, interactive, in moderate distress using accessory muscles Neck : Normal inspection, Supple Cardiovascular : RRR, no JVP, +2 bilateral lower extremity edema Respiratory : decreased bilateral air entry, basal RLL crackles, bilateral wheezes Gastrointestinal: soft, lax, Normal bowel sounds, Non tender Skin : Warm, Dry Neurological : Alert & oriented x3, No focal deficit Results Labs 12/27/23 12:36 12/27/23 12:36 Labs: Laboratory Results - last 24 hr 12/27/23 12/27/23 12/27/23 12:36 12:38 12:42 MCV 92.5 MCH 29.6 MCHC 32.0 RDW 12.6 Plt Count 357 MPV 10.2 Immature Gran % (Auto) 1.2 H Neut % (Auto) 90.7 H Lymph % (Auto) 3.6 L [place] % (Auto) 4.1 Eos % (Auto) 0.2 Baso % (Auto) 0.2 Lymph # (Auto) 0.6 L [place] # (Auto) 0.7 Eos # (Auto) 0.0 Baso # (Auto) 0.0 Abs Immat Gran (auto) 0.21 H Absolute Neuts (auto) 16.1 H Absolute Nucleated RBC 0.000 Nucleated RBC % (auto) 0.0 Smear Tech's Comments VERIFIED PT 19.2 H D INR 1.6 H Anion Gap 13 Estim Creat Clear Calc 54.3 Estimated GFR 45 Random Glucose 106 Lactic Acid 1.4 Calcium 9.6 Magnesium 2.4 Total Bilirubin 0.6 AST 46 H ALT 51 H Alkaline Phosphatase 131 H Troponin I High Sens 7.5 B-Natriuretic Peptide 120 H Total Protein 7.6 Albumin 3.5 Lipase 12 Influenza Type A (PCR) NEGATIVE Influenza Type B (PCR) NEGATIVE RSV RNA Qual (PCR) NEGATIVE SARS-CoV-2 RNA (RT-PCR) NEGATIVE Imaging Radiologist's Impressions: Impressions Chest X-Ray 12/27/23 12:27 IMPRESSION: Patchy airspace opacities in the lung bases, particularly in the right middle lobe, may correspond to aspiration or pneumonia. Assessment and Plan (1) Chronic lung disease: Status: Acute (2) Pneumonia: Status: Acute (3) Shortness of breath: Status: Acute (4) Edema: Status: Acute (5) CHF (congestive heart failure): Qualifiers: Heart failure type: diastolic Heart failure chronicity: chronic Qualified Code(s): I50.32 - Chronic diastolic (congestive) heart failure Status: Acute Plan A 68 years old male with PMH of COPD\Asthma, ILD, RAYMOND, BPH, CHF, CKD, PAF among others presenting to the hospital with SOB and DYspnea for 4 days [employer]. Sepsis 2/2 RML Pneumonia Meets sepsis with leukocytosis, Tachycardia and tachypnea LA negative, Blood cultures pending Started Azithromycin and Ceftriaxone Incentive spirometry Mucinex COPD/moderate persistent asthma/ILD with acute decompensation Start IV steroids continue bronchodilators,theophylline cough medicine acute on chronic diastolic chf recent echo with normal EF Elevated BNP with LE edema Start lasix to 40mg iv daily htn on Metoprolol, monitor mild dorinda on CKD III improving Paroxysmal atrial fibrillation Metoprolol, Multaq, apixaban BPH Flomax RAYMOND CPAP at night DVT prophylaxis-on Eliquis Full code The patient will need 2 overnight hospital stay for treatment of sepsis pending clinical improvement and final blood cultures while treating with IV antibiotics and nebulizers which can not be done at any less acute facility. Quality Stroke Does the patient have a stroke diagnosis?: No VTE Prior VTE?: No VTE Risk Level:: Medical - moderate - high VTE Device Contraindication: Treatment Not Indicated VTE Drug Contraindication: Treatment Not Indicated
--- NOTE | 2023-12-27 16:00 | PC.NURSE ---
Awaiting 15:45 Theophylline per pharmacy
[2023-12-27] MEDS: Furosemide 40 MG/4 ML VIAL IVPUSH (16:04)
[2023-12-27] MEDS: levalbuterol HCL 1.25 MG/3 ML VIAL.NEB INHALE ×2 (18:47→19:17)
[2023-12-27] MEDS: Budesonide 0.5 MG/2 ML AMPUL.NEB INHALE (19:17)
[2023-12-27] MEDS: Tamsulosin HCL 0.4 MG CAPSULE PO (20:43)
[2023-12-27] MEDS: Dronedarone HCl 400 MG TABLET PO (20:43)
[2023-12-27] MEDS: buPROPion HCL 75 MG TABLET 150 MG PO (20:43)
[2023-12-27] MEDS: Metoprolol Succinate ER 100 MG TAB.ER.24H PO (20:43)
[2023-12-27] MEDS: guaiFENesin LA 600 MG TAB.ER.12H PO (20:44)
[2023-12-27] MEDS: Apixaban 5 MG TABLET PO (20:44)
[2023-12-27] MEDS: 0.9 % Sodium Chloride Flush 3 ML SYRINGE IVFLUSH (20:46)
[2023-12-28] VITALS (12 sets, daily range): BP systolic 142–163; BP diastolic 66–70; PULSE 70–105; RESP 16–24; TEMP 36.3–37.1; O2SAT 91–98
[2023-12-28] MEDS: levalbuterol HCL 1.25 MG/3 ML VIAL.NEB INHALE ×6 (00:26→20:20)
[2023-12-28 07:08] LABS: Basophils Percent Auto 0.1 % (0-2); Hemoglobin 12.6 g/dl (14.0-18.0); Imm Gran Abs Auto 0.12 X10*3/uL (0.00-0.03); Imm Gran Pct Auto 0.8 % (0.0-0.4); Lymphocytes Absolute Auto 0.8 X10*3/uL (1.2-4.9); Lymphocytes Percent Auto 5.3 % (20-40); MANUAL DIFF FLAG SCAN; Mean Corpuscular HGB Conc 32.3 g/dl (31.0-36.0); Mean Corpuscular Hemoglobin 29.6 pg (27.0-33.0); Mean Corpuscular Volume 91.8 fL (80.0-98.0); Mean Platelet Volume 10.4 fL (9.4-12.4); Monocytes Absolute Auto 0.4 X10*3/uL (0.1-1.2); Monocytes Percent Auto 2.6 % (2-11); Neutrophils Absolute Auto 13.1 x10*3/uL (2.0-8.3); Neutrophils Percent Auto 91.2 % (45-73); Platelet Count 380 X10*3/uL (160-400); Red Blood Count 4.25 X10*6/uL (4.60-5.80); Red Cell Distribution Width 12.7 % (11.0-16.0); SCAN SMEAR FLAG 1; White Blood Count 14.4 X10*3/uL (4.8-10.8)
[2023-12-28 07:22] LABS: Anion Gap 17 (12-20); Blood Urea Nitrogen 30 mg/dL (9-16); Calcium 9.1 mg/dL (8.4-10.2); Carbon Dioxide 24 mmol/L (22-29); Chloride 106 mmol/L (96-108); Creatinine Clr Calc Pharmacy 56.2; Estimated Glomerular Filt Rate 49; Glucose Random 132 mg/dL (60-115); Potassium 3.6 mmol/L (3.3-5.1); Sodium 143 mmol/L (135-145)
[2023-12-28 07:26] LABS: B Type Natriuretic Peptide 127 pg/mL (<100)
[2023-12-28 07:36] LABS: SLIDE REVIEW VERIFIED
[2023-12-28] MEDS: Budesonide 0.5 MG/2 ML AMPUL.NEB INHALE ×2 (08:17→20:20)
[2023-12-28] MEDS: Montelukast Sodium 10 MG TABLET PO (08:18)
[2023-12-28] MEDS: buPROPion HCL 75 MG TABLET 150 MG PO ×2 (08:18→19:46)
[2023-12-28] MEDS: Atorvastatin Calcium 80 MG TABLET PO (08:18)
[2023-12-28] MEDS: guaiFENesin LA 600 MG TAB.ER.12H PO ×2 (08:18→19:47)
[2023-12-28] MEDS: Dronedarone HCl 400 MG TABLET PO ×2 (08:18→19:46)
[2023-12-28] MEDS: Roflumilast 500 MCG TABLET PO (08:18)
[2023-12-28] MEDS: Furosemide 40 MG/4 ML VIAL IVPUSH (08:18)
[2023-12-28] MEDS: Apixaban 5 MG TABLET PO ×2 (08:18→19:48)
[2023-12-28] MEDS: methylPREDNISolone Sod Succ 40 MG/ML VIAL IVPUSH ×2 (08:18→19:46)
[2023-12-28] MEDS: Tamsulosin HCL 0.4 MG CAPSULE PO ×2 (08:18→19:48)
[2023-12-28] MEDS: 0.9 % Sodium Chloride Flush 3 ML SYRINGE IVFLUSH ×3 (08:19→22:04)
--- NOTE | 2023-12-28 09:41 | P.PNIM_ITS ---
Subjective Subjective Date of Service: 12/28/23 Interval History: seen and evaluated feels little better but still coughing and wheezing no other events overnight Review of Systems Review of Systems: Yes all other systems are reviewed and are negative Physical Exam 2 Vital Signs: Vital Signs: Last Vital Signs Temp 97.8 F 12/28/23 07:48 Pulse 82 12/28/23 08:18 Resp 16 12/28/23 08:18 BP 160/70 H 12/28/23 07:48 Pulse Ox 92 12/28/23 07:48 O2 Del Method Room Air 12/28/23 07:48 BMI result Body Mass Index 31.4 Const: Other: Constitutional : Awake, interactive, in moderate distress using accessory muscles Neck : Normal inspection, Supple Cardiovascular : RRR, no JVP, +1 bilateral lower extremity edema Respiratory : decreased bilateral air entry, basal RLL crackles, bilateral wheezes Gastrointestinal: soft, lax, Normal bowel sounds, Non tender Skin : Warm, Dry Neurological : Alert & oriented x3, No focal deficit Objective Data Active Medications Acetaminophen (Acetaminophen 325 Mg Tablet) 650 mg PO Q6H PRN PRN Reason: Pain, Mild (Pain Scale 1-3), fever or headache Albuterol Sulfate (Albuterol Sulfate (0.083%) 2.5 Mg/3 Ml Vial.Neb) 2.5 mg INHALE Q4H PRN PRN Reason: Shortness of Breath/Wheezing Apixaban (Apixaban 5 Mg Tablet) 5 mg PO BID [facility] Last Admin: 12/28/23 08:18 Dose: 5 mg Documented By: SHRUTHI Atorvastatin Calcium (Atorvastatin Calcium 80 Mg Tablet) 80 mg PO DAILY [facility] Last Admin: 12/28/23 08:18 Dose: 80 mg Documented By: SHRUTHI Benzonatate (Benzonatate 100 Mg Capsule) 100 mg PO TID PRN PRN Reason: Cough Budesonide (Budesonide 0.5 Mg/2 Ml Ampul.Neb) 0.5 mg INHALE RBID [facility] Last Admin: 12/28/23 08:17 Dose: 0.5 mg Documented By: DEQUAN Bupropion HCl (Bupropion Hcl 75 Mg Tablet) 150 mg PO BID [facility] Last Admin: 12/28/23 08:18 Dose: 150 mg Documented By: SHRUTHI Calcium Carbonate (Calcium Carbonate 750 Mg Tab.Chew) 750 mg PO Q4H PRN PRN Reason: Heartburn Dronedarone (Dronedarone Hcl 400 Mg Tablet) 400 mg PO BID [facility] Last Admin: 12/28/23 08:18 Dose: 400 mg Documented By: SHRUTHI Furosemide (Furosemide 40 Mg/4 Ml Vial) 40 mg IVPUSH DAILY [facility]; Protocol Last Admin: 12/28/23 08:18 Dose: 40 mg Documented By: SHRUTHI Guaifenesin (Guaifenesin La 600 Mg Tab.Er.12h) 600 mg PO BID [facility] Last Admin: 12/28/23 08:18 Dose: 600 mg Documented By: SHRUTHI Azithromycin 500 mg/ Sodium (Chloride) 250 mls @ 125 mls/hr IV Q24H DARREN Ceftriaxone Sodium 1 gm/ (Sodium Chloride) 50 mls @ 100 mls/hr IV Q24H [facility] Ipratropium [place] (Ipratropium [place] 0.5 Mg/2.5 Ml Solution) 0.5 mg INHALE RQ4H WHILE AWAKE [facility] Levalbuterol HCl (Levalbuterol Hcl 1.25 Mg/3 Ml Vial.Neb) 1.25 mg INHALE RQ4H [facility] Last Admin: 12/28/23 08:16 Dose: 1.25 mg Documented By: DEQUAN Magnesium Hydroxide (Milk Of Magnesia 30 Ml Oral.Susp) 30 ml PO DAILY PRN PRN Reason: Constipation Melatonin (Melatonin 3 Mg Tablet) 6 mg PO BEDTIME PRN PRN Reason: Insomnia Methylprednisolone Sodium Succinate (Methylprednisolone Sod Succ 40 Mg/Ml Vial) 40 mg IVPUSH Q12H [facility] Last Admin: 12/28/23 08:18 Dose: 40 mg Documented By: SHRUTHI Metoprolol Succinate (Metoprolol Succinate Er 100 Mg Tab.Er.24h) 100 mg PO BEDTIME [facility]; Protocol Last Admin: 12/27/23 20:43 Dose: 100 mg Documented By: LI Montelukast Sodium (Montelukast Sodium 10 Mg Tablet) 10 mg PO DAILY [facility] Last Admin: 12/28/23 08:18 Dose: 10 mg Documented By: SHRUTHI Non-Formulary Medication (Arformoterol [Brovana]) 15 mcg INHALE BID [facility] Ondansetron HCl (Ondansetron Hcl 4 Mg/2 Ml Vial) 4 mg IVPUSH Q8H PRN PRN Reason: Nausea and Vomiting Roflumilast (Roflumilast 500 Mcg Tablet) 500 mcg PO DAILY [facility] Last Admin: 12/28/23 08:18 Dose: 500 mcg Documented By: SHRUTHI Sodium Chloride (0.9 % Sodium Chloride Flush 3 Ml Syringe) 3 ml IVFLUSH QSHIFT [facility] Last Admin: 12/28/23 08:19 Dose: 3 ml Documented By: SHRUTHI Tamsulosin HCl (Tamsulosin Hcl 0.4 Mg Capsule) 0.4 mg PO BID [facility] Last Admin: 12/28/23 08:18 Dose: 0.4 mg Documented By: SHRUTHI Theophylline (Theophylline Anhydrous Er 300 Mg Tab.Er.12h) 300 mg PO Q48H [facility] Last Admin: 12/27/23 18:40 Dose: Not Given Documented By: MAURICIO Non-Admin Reason: Med Not Available Labs 12/28/23 06:03 12/28/23 06:03 Labs: Laboratory Results - last 24 hr 12/27/23 12/27/23 12/27/23 12:36 12:38 12:42 MCV 92.5 MCH 29.6 MCHC 32.0 RDW 12.6 Plt Count 357 MPV 10.2 Immature Gran % (Auto) 1.2 H Neut % (Auto) 90.7 H Lymph % (Auto) 3.6 L [place] % (Auto) 4.1 Eos % (Auto) 0.2 Baso % (Auto) 0.2 Lymph # (Auto) 0.6 L [place] # (Auto) 0.7 Eos # (Auto) 0.0 Baso # (Auto) 0.0 Abs Immat Gran (auto) 0.21 H Absolute Neuts (auto) 16.1 H Absolute Nucleated RBC 0.000 Nucleated RBC % (auto) 0.0 Smear Tech's Comments VERIFIED PT 19.2 H D INR 1.6 H Anion Gap 13 Estim Creat Clear Calc 54.3 Estimated GFR 45 Random Glucose 106 Lactic Acid 1.4 Calcium 9.6 Magnesium 2.4 Total Bilirubin 0.6 AST 46 H ALT 51 H Alkaline Phosphatase 131 H Troponin I High Sens 7.5 B-Natriuretic Peptide 120 H Total Protein 7.6 Albumin 3.5 Lipase 12 Influenza Type A (PCR) NEGATIVE Influenza Type B (PCR) NEGATIVE RSV RNA Qual (PCR) NEGATIVE SARS-CoV-2 RNA (RT-PCR) NEGATIVE 12/28/23 06:03 MCV 91.8 MCH 29.6 MCHC 32.3 RDW 12.7 Plt Count 380 MPV 10.4 Immature Gran % (Auto) 0.8 H Neut % (Auto) 91.2 H Lymph % (Auto) 5.3 L [place] % (Auto) 2.6 Eos % (Auto) 0.0 Baso % (Auto) 0.1 Lymph # (Auto) 0.8 L [place] # (Auto) 0.4 Eos # (Auto) 0.0 Baso # (Auto) 0.0 Abs Immat Gran (auto) 0.12 H Absolute Neuts (auto) 13.1 H Absolute Nucleated RBC 0.000 Nucleated RBC % (auto) 0.0 Smear Tech's Comments VERIFIED PT INR Anion Gap 17 Estim Creat Clear Calc 56.2 Estimated GFR 49 Random Glucose 132 H Lactic Acid Calcium 9.1 Magnesium Total Bilirubin AST ALT Alkaline Phosphatase Troponin I High Sens B-Natriuretic Peptide 127 H Total Protein Albumin Lipase Influenza Type A (PCR) Influenza Type B (PCR) RSV RNA Qual (PCR) SARS-CoV-2 RNA (RT-PCR) Assessment and Plan (1) Pneumonia: Status: Acute (2) Shortness of breath: Status: Acute (3) CHF (congestive heart failure): Status: Acute (4) COPD with acute exacerbation: Status: Acute Plan A 68 years old male with PMH of COPD\Asthma, ILD, RAYMOND, BPH, CHF, CKD, PAF among others presenting to the hospital 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 Sepsis 2/2 RML Pneumonia Blood cultures pending Continue Azithromycin and Ceftriaxone Incentive spirometry Mucinex COPD/moderate persistent asthma/ILD with acute decompensation Start IV steroids continue bronchodilators,theophylline add Ipratropium neb. cough medicine acute on chronic diastolic chf recent echo with normal EF Elevated BNP with LE edema Continue lasix to 40mg iv daily htn on Metoprolol, monitor mild dorinda on CKD III improving Paroxysmal atrial fibrillation Metoprolol, Multaq, apixaban BPH Flomax RAYMOND CPAP at night DVT prophylaxis-on Eliquis Full code The patient will need overnight hospital stay for treatment of sepsis pending clinical improvement and final blood cultures while treating with IV antibiotics and nebulizers which can not be done at any less acute facility. Quality Stroke Does the patient have a stroke diagnosis?: No VTE Prior VTE?: No VTE Risk Level:: Medical - moderate - high VTE Device Contraindication: Treatment Not Indicated VTE Drug Contraindication: Treatment Not Indicated
[2023-12-28] MEDS: Ipratropium Bromide 0.5 MG/2.5 ML SOLUTION INHALE ×3 (11:52→20:20)
[2023-12-28] MEDS: cefTRIAXone sodium 1 GM in 0.9 % Sodium Chloride 50 ML IV (12:13)
[2023-12-28] MEDS: Benzonatate 100 MG CAPSULE PO ×2 (12:19→19:47)
[2023-12-28] MEDS: Azithromycin 500 MG in 0.9 % Sodium Chloride 250 ML 125 MG IV (13:56)
--- NOTE | 2023-12-28 15:03 | MHC.CM.PN ---
PT REPORTS HE LIVES AT HOME WITH HIS AND IS INDEPENDENT WITH CARE HE HAS NO SERVICES AND A CPAP FOR DME HCP ON FILE PCP: FRANCISCO SCHAFFER IMM DELIVERED DCP: HOME NO SERVICES VIA PRIVATE TRANSPORT
--- NOTE | 2023-12-28 15:43 | PC.RT ---
pt has not recieved his Brovana yet as his needs to bring it in from home and Pharmacy will need to verify it and place labels on it.
--- NOTE | 2023-12-28 18:18 | PC.NURSE ---
Pt's brought Pt's non-formulary own Brovana, pharmacy notifed, Brovana labeled and placed in refridgerator per deliverer pharmacy.
[2023-12-28] MEDS: Metoprolol Succinate ER 100 MG TAB.ER.24H PO (19:47)
[2023-12-29] VITALS (12 sets, daily range): BP systolic 134–162; BP diastolic 68–71; PULSE 71–89; RESP 16–20; TEMP 36–36.6; O2SAT 90–98
[2023-12-29] MEDS: levalbuterol HCL 1.25 MG/3 ML VIAL.NEB INHALE ×7 (00:39→23:54)
[2023-12-29 07:06] LABS: Hematocrit 37.6 % (42.0-52.0); Hemoglobin 11.9 g/dl (14.0-18.0); Mean Corpuscular HGB Conc 31.6 g/dl (31.0-36.0); Mean Corpuscular Hemoglobin 29.2 pg (27.0-33.0); Mean Corpuscular Volume 92.2 fL (80.0-98.0); Mean Platelet Volume 10.3 fL (9.4-12.4); Platelet Count 365 X10*3/uL (160-400); Red Blood Count 4.08 X10*6/uL (4.60-5.80); Red Cell Distribution Width 12.3 % (11.0-16.0); White Blood Count 18.1 X10*3/uL (4.8-10.8)
[2023-12-29 07:21] LABS: Anion Gap 11 (12-20); Blood Urea Nitrogen 42 mg/dL (9-16); Calcium 9.2 mg/dL (8.4-10.2); Carbon Dioxide 28 mmol/L (22-29); Chloride 104 mmol/L (96-108); Creatinine Clr Calc Pharmacy 50.9; Estimated Glomerular Filt Rate 44; Glucose Random 134 mg/dL (60-115); Potassium 4.4 mmol/L (3.3-5.1); Sodium 139 mmol/L (135-145)
[2023-12-29] MEDS: Budesonide 0.5 MG/2 ML AMPUL.NEB INHALE ×2 (08:03→19:56)
[2023-12-29] MEDS: methylPREDNISolone Sod Succ 40 MG/ML VIAL IVPUSH ×2 (08:07→20:46)
[2023-12-29] MEDS: Atorvastatin Calcium 80 MG TABLET PO (08:07)
[2023-12-29] MEDS: guaiFENesin LA 600 MG TAB.ER.12H PO ×2 (08:07→20:48)
[2023-12-29] MEDS: Roflumilast 500 MCG TABLET PO (08:07)
[2023-12-29] MEDS: buPROPion HCL 75 MG TABLET 150 MG PO ×2 (08:07→20:46)
[2023-12-29] MEDS: Montelukast Sodium 10 MG TABLET PO (08:07)
[2023-12-29] MEDS: Dronedarone HCl 400 MG TABLET PO ×2 (08:07→20:48)
[2023-12-29] MEDS: Furosemide 40 MG/4 ML VIAL IVPUSH ×2 (08:07→17:09)
[2023-12-29] MEDS: Tamsulosin HCL 0.4 MG CAPSULE PO ×2 (08:08→20:47)
[2023-12-29] MEDS: Apixaban 5 MG TABLET PO ×2 (08:08→20:48)
[2023-12-29] MEDS: 0.9 % Sodium Chloride Flush 3 ML SYRINGE IVFLUSH ×2 (08:08→22:15)
[2023-12-29] MEDS: Ipratropium Bromide 0.5 MG/2.5 ML SOLUTION INHALE ×4 (08:18→19:56)
--- NOTE | 2023-12-29 12:53 | P.PNIM_ITS ---
Subjective Subjective Date of Service: 12/29/23 Interval History: Seen and evaluated still coughing and wheezing repporting dyspnea with exertion no other events overnight Review of Systems no more fever, chills or weakness No chest pain, palpitation having shortness of breath or coughing with wheezing No abdominal pain, nausea or vomiting No urinary symptoms No any rash or wounds Review of Systems: Yes all other systems are reviewed and are negative Physical Exam 2 Vital Signs: Vital Signs: Last Vital Signs Temp 96.8 F 12/29/23 07:54 Pulse 71 12/29/23 11:35 Resp 18 12/29/23 11:35 BP 162/71 H 12/29/23 07:54 Pulse Ox 92 12/29/23 07:54 O2 Del Method Room Air 12/29/23 07:54 BMI result Body Mass Index 31.4 Const: Other: Constitutional : Awake, interactive, in moderate distress using accessory muscles Neck : Normal inspection, Supple Cardiovascular : RRR, no JVP, +1 bilateral lower extremity edema Respiratory : decreased bilateral air entry, basal RLL crackles, bilateral wheezes Gastrointestinal: soft, lax, Normal bowel sounds, Non tender Skin : Warm, Dry Neurological : Alert & oriented x3, No focal deficit Objective Data Active Medications Acetaminophen (Acetaminophen 325 Mg Tablet) 650 mg PO Q6H PRN PRN Reason: Pain, Mild (Pain Scale 1-3), fever or headache Albuterol Sulfate (Albuterol Sulfate (0.083%) 2.5 Mg/3 Ml Vial.Neb) 2.5 mg INHALE Q4H PRN PRN Reason: Shortness of Breath/Wheezing Apixaban (Apixaban 5 Mg Tablet) 5 mg PO BID [facility] Last Admin: 12/29/23 08:08 Dose: 5 mg Documented By: SHRUTHI Atorvastatin Calcium (Atorvastatin Calcium 80 Mg Tablet) 80 mg PO DAILY [facility] Last Admin: 12/29/23 08:07 Dose: 80 mg Documented By: SHRUTHI Benzonatate (Benzonatate 100 Mg Capsule) 100 mg PO TID PRN PRN Reason: Cough Last Admin: 12/28/23 19:47 Dose: 100 mg Documented By: LI Budesonide (Budesonide 0.5 Mg/2 Ml Ampul.Neb) 0.5 mg INHALE RBID [facility] Last Admin: 12/29/23 08:03 Dose: 0.5 mg Documented By: NORA Bupropion HCl (Bupropion Hcl 75 Mg Tablet) 150 mg PO BID [facility] Last Admin: 12/29/23 08:07 Dose: 150 mg Documented By: SHRUTHI Calcium Carbonate (Calcium Carbonate 750 Mg Tab.Chew) 750 mg PO Q4H PRN PRN Reason: Heartburn Dronedarone (Dronedarone Hcl 400 Mg Tablet) 400 mg PO BID [facility] Last Admin: 12/29/23 08:07 Dose: 400 mg Documented By: SHRUTHI Furosemide (Furosemide 40 Mg/4 Ml Vial) 40 mg IVPUSH BID@0900,1800 [facility]; Protocol Last Admin: 12/29/23 08:07 Dose: 40 mg Documented By: SHRUTHI Guaifenesin (Guaifenesin La 600 Mg Tab.Er.12h) 600 mg PO BID [facility] Last Admin: 12/29/23 08:07 Dose: 600 mg Documented By: SHRUTHI Azithromycin 500 mg/ Sodium (Chloride) 250 mls @ 125 mls/hr IV Q24H [facility] Last Infusion: 12/28/23 16:12 Dose: Infused Documented By: SHRUTHI Ceftriaxone Sodium 1 gm/ (Sodium Chloride) 50 mls @ 100 mls/hr IV Q24H [facility] Last Infusion: 12/28/23 12:46 Dose: Infused Documented By: SHRUTHI Ipratropium [place] (Ipratropium [place] 0.5 Mg/2.5 Ml Solution) 0.5 mg INHALE RQ4H WHILE AWAKE [facility] Last Admin: 12/29/23 11:34 Dose: 0.5 mg Documented By: NORA Levalbuterol HCl (Levalbuterol Hcl 1.25 Mg/3 Ml Vial.Neb) 1.25 mg INHALE RQ4H [facility] Last Admin: 12/29/23 11:34 Dose: 1.25 mg Documented By: NORA Magnesium Hydroxide (Milk Of Magnesia 30 Ml Oral.Susp) 30 ml PO DAILY PRN PRN Reason: Constipation Melatonin (Melatonin 3 Mg Tablet) 6 mg PO BEDTIME PRN PRN Reason: Insomnia Methylprednisolone Sodium Succinate (Methylprednisolone Sod Succ 40 Mg/Ml Vial) 40 mg IVPUSH Q12H [facility] Last Admin: 12/29/23 08:07 Dose: 40 mg Documented By: SHRUTHI Metoprolol Succinate (Metoprolol Succinate Er 100 Mg Tab.Er.24h) 100 mg PO BEDTIME [facility]; Protocol Last Admin: 12/28/23 19:47 Dose: 100 mg Documented By: LI Montelukast Sodium (Montelukast Sodium 10 Mg Tablet) 10 mg PO DAILY [facility] Last Admin: 12/29/23 08:07 Dose: 10 mg Documented By: SHRUTHI Pt Own (Arformoterol [Brovana] 15 Mcg/2 Ml Solution For Nebulization) 15 mcg INHALE RBID [facility] Last Admin: 12/29/23 08:03 Dose: 15 mcg Documented By: NORA Ondansetron HCl (Ondansetron Hcl 4 Mg/2 Ml Vial) 4 mg IVPUSH Q8H PRN PRN Reason: Nausea and Vomiting Roflumilast (Roflumilast 500 Mcg Tablet) 500 mcg PO DAILY [facility] Last Admin: 12/29/23 08:07 Dose: 500 mcg Documented By: SHRUTHI Sodium Chloride (0.9 % Sodium Chloride Flush 3 Ml Syringe) 3 ml IVFLUSH QSHIFT [facility] Last Admin: 12/29/23 08:08 Dose: 3 ml Documented By: SHRUTHI Tamsulosin HCl (Tamsulosin Hcl 0.4 Mg Capsule) 0.4 mg PO BID [facility] Last Admin: 12/29/23 08:08 Dose: 0.4 mg Documented By: SHRUTHI Theophylline (Theophylline Anhydrous Er 300 Mg Tab.Er.12h) 300 mg PO Q48H [facility] Last Admin: 12/27/23 18:40 Dose: Not Given Documented By: MAURICIO Non-Admin Reason: Med Not Available Labs 12/29/23 06:22 12/29/23 06:22 Labs: Laboratory Results - last 24 hr 12/29/23 06:22 MCV 92.2 MCH 29.2 MCHC 31.6 RDW 12.3 Plt Count 365 MPV 10.3 Absolute Nucleated RBC 0.000 Nucleated RBC % (auto) 0.0 Anion Gap 11 L Estim Creat Clear Calc 50.9 Estimated GFR 44 Random Glucose 134 H Calcium 9.2 Microbiology Microbiology Results: Microbiology 12/27/23 12:36 Blood Culture - Preliminary Blood - Venous No growth after 24 hours. 12/27/23 12:42 Blood Culture - Preliminary Blood - Venous No growth after 24 hours. 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 Sepsis 2/2 RML Pneumonia Blood cultures pending Continue Azithromycin and Ceftriaxone Incentive spirometry Mucinex COPD/moderate persistent asthma/ILD with acute decompensation Continue IV steroids continue bronchodilators,theophylline add Ipratropium neb. cough medicine acute on chronic diastolic chf recent echo with normal EF Elevated BNP with LE edema increase lasix to 40mg iv bid htn on Metoprolol, monitor mild dorinda on CKD III improving Paroxysmal atrial fibrillation Metoprolol, Multaq, apixaban BPH Flomax RAYMOND CPAP at night DVT prophylaxis-on Eliquis Full code The patient will need overnight hospital stay for treatment of sepsis pending clinical improvement and final blood cultures while treating with IV antibiotics and nebulizers which can not be done at any less acute facility. Quality Stroke Does the patient have a stroke diagnosis?: No VTE Prior VTE?: No VTE Risk Level:: Medical - moderate - high VTE Device Contraindication: Treatment Not Indicated VTE Drug Contraindication: Treatment Not Indicated
[2023-12-29] MEDS: cefTRIAXone sodium 1 GM in 0.9 % Sodium Chloride 50 ML IV (13:14)
[2023-12-29] MEDS: Theophylline Anhydrous ER 300 MG TAB.ER.12H PO (14:05)
[2023-12-29] MEDS: Azithromycin 500 MG in 0.9 % Sodium Chloride 250 ML 125 MG IV (14:05)
[2023-12-29] MEDS: Metoprolol Succinate ER 100 MG TAB.ER.24H PO (20:46)
[2023-12-29] MEDS: Benzonatate 100 MG CAPSULE PO (20:47)
[2023-12-29] MEDS: Melatonin 3 MG TABLET 6 MG PO (21:48)
[2023-12-30] VITALS (11 sets, daily range): BP systolic 150–172; BP diastolic 67–77; PULSE 72–89; RESP 14–20; TEMP 36.6–37.4; O2SAT 92–97
--- NOTE | 2023-12-30 02:29 | PC.NURSE ---
Pt sleeping at this time, respirations even an non-labored, no apparent distress noted. Call cao within reach.
[2023-12-30] MEDS: levalbuterol HCL 1.25 MG/3 ML VIAL.NEB INHALE ×6 (04:19→23:42)
[2023-12-30] MEDS: Ipratropium Bromide 0.5 MG/2.5 ML SOLUTION INHALE ×4 (07:52→19:52)
[2023-12-30] MEDS: Budesonide 0.5 MG/2 ML AMPUL.NEB INHALE ×2 (07:52→19:52)
[2023-12-30 08:04] LABS: Anion Gap 13 (12-20); Blood Urea Nitrogen 45 mg/dL (9-16); Carbon Dioxide 27 mmol/L (22-29); Chloride 102 mmol/L (96-108); Creatinine Clr Calc Pharmacy 46.2; Estimated Glomerular Filt Rate 39; Glucose Random 136 mg/dL (60-115); Potassium 4.4 mmol/L (3.3-5.1); Sodium 138 mmol/L (135-145)
[2023-12-30 08:09] LABS: B Type Natriuretic Peptide 71 pg/mL (<100)
[2023-12-30] MEDS: buPROPion HCL 75 MG TABLET 150 MG PO ×2 (08:32→21:04)
[2023-12-30] MEDS: Atorvastatin Calcium 80 MG TABLET PO (08:32)
[2023-12-30] MEDS: Dronedarone HCl 400 MG TABLET PO ×2 (08:33→21:03)
[2023-12-30] MEDS: Montelukast Sodium 10 MG TABLET PO (08:33)
[2023-12-30] MEDS: guaiFENesin LA 600 MG TAB.ER.12H PO ×2 (08:33→21:04)
[2023-12-30] MEDS: methylPREDNISolone Sod Succ 40 MG/ML VIAL IVPUSH ×2 (08:33→21:03)
[2023-12-30] MEDS: Benzonatate 100 MG CAPSULE PO (08:33)
[2023-12-30] MEDS: Apixaban 5 MG TABLET PO ×2 (08:33→21:04)
[2023-12-30] MEDS: Tamsulosin HCL 0.4 MG CAPSULE PO ×2 (08:33→21:03)
[2023-12-30] MEDS: amLODIPine Besylate 5 MG TABLET PO (08:33)
[2023-12-30] MEDS: Furosemide 40 MG/4 ML VIAL IVPUSH (08:33)
[2023-12-30] MEDS: Roflumilast 500 MCG TABLET PO (08:33)
[2023-12-30] MEDS: 0.9 % Sodium Chloride Flush 3 ML SYRINGE IVFLUSH ×2 (08:38→21:04)
--- NOTE | 2023-12-30 11:00 | HO.PM.IMPN ---
Subjective Subjective Date of Service: 12/30/23 Interval History: Seen and evaluated still coughing and wheezing reporting dyspnea with exertion requiring O2 supplement overnight no other events overnight Review of Systems no more fever, chills or weakness No chest pain, palpitation having shortness of breath or coughing with wheezing No abdominal pain, nausea or vomiting No urinary symptoms No any rash or wounds Review of Systems: Yes all other systems are reviewed and are negative Physical Exam Vital Signs: Vital Signs: Last Vital Signs Temp 98.7 F 12/30/23 07:44 Pulse 73 12/30/23 07:52 Resp 18 12/30/23 07:52 BP 172/77 H 12/30/23 07:44 Pulse Ox 94 12/30/23 07:44 O2 Del Method Nasal Cannula 12/30/23 07:44 O2 Flow Rate 1 12/30/23 07:44 BMI result Body Mass Index 31.4 Const: Other: Constitutional : Awake, interactive, in moderate distress using accessory muscles Neck : Normal inspection, Supple Cardiovascular : RRR, no JVP, trace bilateral lower extremity edema Respiratory : decreased bilateral air entry, basal RLL crackles, bilateral wheezes, on O2 supplement Gastrointestinal: soft, lax, Normal bowel sounds, Non tender Skin : Warm, Dry Neurological : Alert & oriented x3, No focal deficit Objective Data Active Medications Acetaminophen (Acetaminophen 325 Mg Tablet) 650 mg PO Q6H PRN PRN Reason: Pain, Mild (Pain Scale 1-3), fever or headache Albuterol Sulfate (Albuterol Sulfate (0.083%) 2.5 Mg/3 Ml Vial.Neb) 2.5 mg INHALE Q4H PRN PRN Reason: Shortness of Breath/Wheezing Amlodipine Besylate (Amlodipine Besylate 5 Mg Tablet) 5 mg PO DAILY [facility]; Protocol Last Admin: 12/30/23 08:33 Dose: 5 mg Documented By: JERARDO Apixaban (Apixaban 5 Mg Tablet) 5 mg PO BID [facility] Last Admin: 12/30/23 08:33 Dose: 5 mg Documented By: JERARDO Atorvastatin Calcium (Atorvastatin Calcium 80 Mg Tablet) 80 mg PO DAILY [facility] Last Admin: 12/30/23 08:32 Dose: 80 mg Documented By: JERARDO Benzonatate (Benzonatate 100 Mg Capsule) 100 mg PO TID PRN PRN Reason: Cough Last Admin: 12/30/23 08:33 Dose: 100 mg Documented By: JERARDO Budesonide (Budesonide 0.5 Mg/2 Ml Ampul.Neb) 0.5 mg INHALE RBID [facility] Last Admin: 12/30/23 07:52 Dose: 0.5 mg Documented By: PADMINI Bupropion HCl (Bupropion Hcl 75 Mg Tablet) 150 mg PO BID [facility] Last Admin: 12/30/23 08:32 Dose: 150 mg Documented By: JERARDO Calcium Carbonate (Calcium Carbonate 750 Mg Tab.Chew) 750 mg PO Q4H PRN PRN Reason: Heartburn Dronedarone (Dronedarone Hcl 400 Mg Tablet) 400 mg PO BID [facility] Last Admin: 12/30/23 08:33 Dose: 400 mg Documented By: JERARDO Furosemide (Furosemide 40 Mg/4 Ml Vial) 40 mg IVPUSH BID@0900,1800 [facility]; Protocol Last Admin: 12/30/23 08:33 Dose: 40 mg Documented By: JERARDO Guaifenesin (Guaifenesin [place] 600 Mg Tab.Er.12h) 600 mg PO BID [facility] Last Admin: 12/30/23 08:33 Dose: 600 mg Documented By: JERARDO Azithromycin 500 mg/ Sodium (Chloride) 250 mls @ 125 mls/hr IV Q24H [facility] Last Infusion: 12/29/23 16:15 Dose: Infused Documented By: SHRUTHI Ceftriaxone Sodium 1 gm/ (Sodium Chloride) 50 mls @ 100 mls/hr IV Q24H [facility] Last Infusion: 12/29/23 13:47 Dose: Infused Documented By: SHRUTHI Ipratropium [place] (Ipratropium [place] 0.5 Mg/2.5 Ml Solution) 0.5 mg INHALE RQ4H WHILE AWAKE [facility] Last Admin: 12/30/23 07:52 Dose: 0.5 mg Documented By: PADMINI Levalbuterol HCl (Levalbuterol Hcl 1.25 Mg/3 Ml Vial.Neb) 1.25 mg INHALE RQ4H [facility] Last Admin: 12/30/23 07:52 Dose: 1.25 mg Documented By: PADMINI Magnesium Hydroxide (Milk Of Magnesia 30 Ml Oral.Susp) 30 ml PO DAILY PRN PRN Reason: Constipation Melatonin (Melatonin 3 Mg Tablet) 6 mg PO BEDTIME PRN PRN Reason: Insomnia Last Admin: 12/29/23 21:48 Dose: 6 mg Documented By: LI Methylprednisolone Sodium Succinate (Methylprednisolone Sod Succ 40 Mg/Ml Vial) 40 mg IVPUSH Q12H [facility] Last Admin: 12/30/23 08:33 Dose: 40 mg Documented By: JERARDO Metoprolol Succinate (Metoprolol Succinate Er 100 Mg Tab.Er.24h) 100 mg PO BEDTIME [facility]; Protocol Last Admin: 12/29/23 20:46 Dose: 100 mg Documented By: LI Montelukast Sodium (Montelukast Sodium 10 Mg Tablet) 10 mg PO DAILY [facility] Last Admin: 12/30/23 08:33 Dose: 10 mg Documented By: JERARDO Pt Own (Arformoterol [Brovana] 15 Mcg/2 Ml Solution For Nebulization) 15 mcg INHALE RBID [facility] Last Admin: 12/29/23 19:57 Dose: 15 mcg Documented By: DANNIE Ondansetron HCl (Ondansetron Hcl 4 Mg/2 Ml Vial) 4 mg IVPUSH Q8H PRN PRN Reason: Nausea and Vomiting Roflumilast (Roflumilast 500 Mcg Tablet) 500 mcg PO DAILY [facility] Last Admin: 12/30/23 08:33 Dose: 500 mcg Documented By: JERARDO Sodium Chloride (0.9 % Sodium Chloride Flush 3 Ml Syringe) 3 ml IVFLUSH QSHIFT [facility] Last Admin: 12/30/23 08:38 Dose: 3 ml Documented By: JERARDO Tamsulosin HCl (Tamsulosin Hcl 0.4 Mg Capsule) 0.4 mg PO BID [facility] Last Admin: 12/30/23 08:33 Dose: 0.4 mg Documented By: JERARDO Theophylline (Theophylline Anhydrous Er 300 Mg Tab.Er.12h) 300 mg PO Q48H [facility] Last Admin: 12/29/23 14:05 Dose: 300 mg Documented By: SERGEOS Labs 12/29/23 06:22 12/30/23 05:48 Labs: Laboratory Results - last 24 hr 12/30/23 05:48 Anion Gap 13 Estim Creat Clear Calc 46.2 Estimated GFR 39 Random Glucose 136 H Calcium 9.0 B-Natriuretic Peptide 71 Microbiology Microbiology Results: Microbiology 12/27/23 12:36 Blood Culture - Preliminary Blood - Venous No growth after 48 hours. 12/27/23 12:42 Blood Culture - Preliminary Blood - Venous No growth after 48 hours. 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 Sepsis 2/2 RML Pneumonia , sepsis resolved Blood cultures negative Continue Azithromycin and Ceftriaxone Incentive spirometry Mucinex COPD/moderate persistent asthma/ILD with acute decompensation still wheezy with large amoung of secretions using his accessory muscles and requiring O2 supplement Continue IV steroids continue bronchodilators,theophylline add Ipratropium neb. cough medicine To do home O2 eval acute on chronic diastolic chf recent echo with normal EF Elevated BNP with LE edema continue lasix iv bid htn on Metoprolol, monitor mild dorinda on CKD III improving Paroxysmal atrial fibrillation Metoprolol, Multaq, apixaban BPH Flomax RAYMOND CPAP at night DVT prophylaxis-on Eliquis Full code The patient will need overnight hospital stay for treatment of sepsis pending clinical improvement and final blood cultures while treating with IV antibiotics and nebulizers which can not be done at any less acute facility. Quality Stroke Does the patient have a stroke diagnosis?: No VTE Prior VTE?: No VTE Risk Level:: Medical - moderate - high VTE Device Contraindication: Treatment Not Indicated VTE Drug Contraindication: Treatment Not Indicated
[2023-12-30] MEDS: cefTRIAXone sodium 1 GM in 0.9 % Sodium Chloride 50 ML IV (13:03)
[2023-12-30] MEDS: Azithromycin 500 MG in 0.9 % Sodium Chloride 250 ML 125 MG IV (13:36)
--- NOTE | 2023-12-30 16:26 | MHC.CM.PN ---
PT NOT YET MEDICALLY CLEARED DCP: HOME ? [facility] TO TRANSPORT
[2023-12-30] MEDS: Furosemide 40 MG/4 ML VIAL 20 MG IVPUSH (17:13)
[2023-12-30] MEDS: Metoprolol Succinate ER 100 MG TAB.ER.24H PO (21:04)
[2023-12-30] MEDS: Melatonin 3 MG TABLET 6 MG PO (21:08)
--- NOTE | 2023-12-30 23:52 | PC.RT ---
Pt placed on WILNER (on CPAP). Plan is for ABG in the morning
[2023-12-31] MEDS: levalbuterol HCL 1.25 MG/3 ML VIAL.NEB INHALE ×3 (04:14→11:20)
[2023-12-31 04:25] VITALS: PULSE 88; RESP 16; O2SAT 94
[2023-12-31 04:32] LABS: ABG Base Excess 2.5 mmol/L; ABG HCO3 26 mmol/L (22-26); ABG pCO2 39 mmHg (32-45); ABG pH 7.44 (7.35-7.45); ABG pO2 188 mmHg (83-108)
[2023-12-31 07:43] VITALS: BP 164/70; PULSE 73; RESP 16; TEMP 36.9; O2SAT 93
[2023-12-31 07:46] LABS: ABG Refer to POC result
[2023-12-31] MEDS: Ipratropium Bromide 0.5 MG/2.5 ML SOLUTION INHALE ×2 (07:55→11:20)
[2023-12-31] MEDS: Budesonide 0.5 MG/2 ML AMPUL.NEB INHALE (07:55)
[2023-12-31 07:59] VITALS: PULSE 73; RESP 16
[2023-12-31] MEDS: Furosemide 40 MG/4 ML VIAL 20 MG IVPUSH (08:55)
[2023-12-31] MEDS: Roflumilast 500 MCG TABLET PO (08:55)
[2023-12-31] MEDS: amLODIPine Besylate 5 MG TABLET PO (08:55)
[2023-12-31] MEDS: Apixaban 5 MG TABLET PO (08:55)
[2023-12-31] MEDS: Atorvastatin Calcium 80 MG TABLET PO (08:55)
[2023-12-31] MEDS: methylPREDNISolone Sod Succ 40 MG/ML VIAL IVPUSH (08:55)
[2023-12-31] MEDS: buPROPion HCL 75 MG TABLET 150 MG PO (08:55)
[2023-12-31] MEDS: Montelukast Sodium 10 MG TABLET PO (08:55)
[2023-12-31] MEDS: Tamsulosin HCL 0.4 MG CAPSULE PO (08:56)
[2023-12-31] MEDS: Dronedarone HCl 400 MG TABLET PO (08:56)
[2023-12-31] MEDS: 0.9 % Sodium Chloride Flush 3 ML SYRINGE IVFLUSH (08:56)
[2023-12-31] MEDS: guaiFENesin LA 600 MG TAB.ER.12H PO (08:56)
--- NOTE | 2023-12-31 09:19 | MHC.CM.PN ---
Second IMM given 12/30. Pt is medically cleared for discharge home self-care. Pts spouse to transport him home.
--- NOTE | 2023-12-31 10:40 | P.DS_ITS ---
DS: Providers Provider Date of Service: 12/31/23 Date of admission: 12/27/23 15:36 Primary care physician: Guilherme Mcallister MD DS: Diagnosis Discharge Diagnosis (1) COPD with acute exacerbation: Status: Acute (2) Pneumonia: Status: Acute (3) Sepsis: Status: Acute (4) Chronic lung disease: Status: Acute (5) CHF (congestive heart failure): Status: Acute (6) Swelling of lower extremity: Status: Acute DS: Summary Hospital Course Hospital Course: Admission note HPI A 68 years old male with PMH of COPD\Asthma, ILD, RAYMOND, BPH, CHF, CKD, PAF among others presenting to the hospital with SOB and DYspnea for 4 days [employer]ATION MA[employer]. He reports coughing greenish mucus over the last 4-5 days with associated shortness of breath and low O2 sat of 88%. reporting chills and subjective fever associated with nausea and vomiting with diarrhea. No chest pain, palpitations or urinary symptoms. His tested positive for Covid last week. In ED he tested -ve for Covid but CXR showed infiltrates suggestive of pneumonia and started on antibiotics. He also received steroids and nebulizers for signficant wheezing/ Admitted for further work up and treatment. Hospital course - Sepsis secondary to RML Pneumonia , sepsis resolved upon admission as Blood cultures negative and he was treated with Azithromycin and Ceftriaxone along with Incentive spirometry and Mucinex with good response. - COPD/moderate persistent asthma/ILD with acute decompensation that improved slowly with IV steroids, bronchodilators,theophylline and Ipratropium neb. He had overnight Oxymetry showing >8 minutes of hypoxia. He will need O2 supplement with CPAP at night. Maintained his O2 sat on RA with ambulation. - Acute on chronic diastolic chf with elevated BNP and lower extremities edema responded well to IV lasix. Advised to watch fluids intake and increase Lasix to 40 in morning and 20 afternoon. - Elevated blood pressure. Start Losratan along with home medications with a plan to follow with PCP. Discharge plan Low sodium diet; Fluids restriction Watch your weight at home and use Lasix 40 mg in the morning and 20 mg in the afternoon Prednisone tapering dose Doxycycline and Ceftin for 5 more days Use your home Nebulizers 4 times for the next 3-5 days then as scheduled You will need 2L of Oxygen at bedtime Your blood pressure significantly elevated; To start Losartan 25 mg and monitor BP at home, report 1 week readings to PCP to adjust medications as needed. Time Attestation Discharge Coordination Time (in mins): 42 Quality: Safe Use of Opioids Does Pt have an Active Cancer Diagnosis on the Problem List?: No Quality: Stroke Does the patient have a stroke diagnosis?: No Physical Exam Vital Signs: Vital Signs: Last Vital Signs Temp 98.5 F 12/31/23 07:43 Pulse 73 12/31/23 07:59 Resp 16 12/31/23 07:59 BP 164/70 H 12/31/23 07:43 Pulse Ox 93 12/31/23 07:43 O2 Del Method Room Air 12/31/23 07:43 O2 Flow Rate 1 12/30/23 07:44 BMI result Body Mass Index 31.4 Const: Other: Constitutional : Awake, interactive, not in distress Neck : Normal inspection, Supple Cardiovascular : RRR, no JVP, trace bilateral lower extremity edema Respiratory : fair bilateral air entry, no crackles, scattered bilateral wheezes, on O2 supplement Gastrointestinal: soft, lax, Normal bowel sounds, Non tender Skin : Warm, Dry Neurological : Alert & oriented x3, No focal deficit DS: Data Data Completed and Pending Completed studies during hospitalization [Text1]: Procedures Assistance with Respiratory Ventilation, Less than 24 Consecutive Hours, Continuous Positive Airway Pressure (08/30/23) Labs on day of discharge: Laboratory Results - last 24 hr 12/31/23 04:21 O2 Saturation 99.0 ABG pH at Pt Temp 7.44 ABG pCO2 at Pt Temp 39 ABG pO2 at Pt Temp 188 H ABG HCO3 26 ABG Base Excess (Actual) 2.5 Preliminary micro results at discharge 12/27/23 12:36 Blood Culture - Preliminary Blood - Venous No growth after 48 hours. 12/27/23 12:42 Blood Culture - Preliminary Blood - Venous No growth after 48 hours. Imaging Chest x-ray: Radiologist's impression: ITS Impressions Chest X-Ray 12/27/23 12:27 IMPRESSION: Patchy airspace opacities in the lung bases, particularly in the right middle lobe, may correspond to aspiration or pneumonia. Discharge Plan Discharge Anticipated Discharge Date/Time: 12/31/23 10:31 Patient Disposition: Home, Self-Care Discharge Diagnosis: COPD exacerbation Fluid overload Pneumonia Referrals: Guilherme Mcallister MD [Primary Care Provider] - 1 Week Discharge Medications: New benzonatate 100 mg Capsule 100 mg PO TID PRN (Reason: Cough) Qty: 30 0RF guaifenesin [Mucinex] 600 mg Tablet Extended Release 12hr 600 mg PO BID Qty: 20 0RF furosemide 40 mg tablet 40 mg PO DAILY Qty: 90 0RF prednisone 10 mg tablet See Taper PO DIRECTED Qty: 30 0RF Taper: Prednisone 40 mg daily for 3 Days and 0 Hour 30 mg daily for 3 Days and 0 Hour 20 mg daily for 3 Days and 0 Hour 10 mg daily for 3 Days and 0 Hour Rx Instructions: see taper instructions doxycycline monohydrate 100 mg capsule 100 mg PO BID Qty: 10 0RF cefuroxime axetil 500 mg tablet 500 mg PO BID Qty: 10 0RF losartan 25 mg tablet 25 mg PO DAILY Qty: 90 0RF Continued bupropion HCl 75 mg tablet 150 mg PO BID 90 Days Qty: 360 3RF Multaq 400 mg tablet 400 mg PO BID 90 Days Qty: 180 3RF Rx Instructions: must administer with a meal/food Eliquis 5 mg tablet 5 mg PO BID Qty: 180 3RF budesonide 0.5 mg/2 mL suspension for nebulization 0.5 mg inhalation BID Qty: 360 3RF tamsulosin [Flomax] 0.4 mg capsule 0.4 mg PO BID 90 Days Qty: 180 3RF montelukast 10 mg tablet 10 mg PO DAILY Qty: 90 3RF roflumilast 500 mcg tablet 500 mcg PO DAILY Qty: 90 3RF metoprolol succinate 100 mg tablet extended release 24 hr 100 mg PO BEDTIME theophylline 300 mg tablet extended release 12 hr 300 mg PO Q48H Tezspire 210 mg/1.91 mL (110 mg/mL) Pen Injector 210 mg SUBCUT Q4W atorvastatin 80 mg tablet 80 mg PO DAILY Qty: 90 3RF (DME) nebulizers Misc See Rx Instructions .Route Rx Instructions: As directed (DME) CPAP Machine/Device Device See Rx Instructions .Route Rx Instructions: As directed arformoterol [Brovana] 15 mcg/2 mL solution for nebulization 15 mcg inhalation BID Qty: 360 3RF levalbuterol HCl 1.25 mg/3 mL solution for nebulization 1.25 mg inhalation BID 90 Days Qty: 540 3RF albuterol sulfate 90 mcg/actuation HFA aerosol inhaler 2 puff inhalation QID PRN (Reason: Shortness Of Breath) Qty: 8.5 11RF Changed furosemide [Lasix] 20 mg tablet 20 mg PO DAILY@1700 Qty: 60 1RF Held prednisone 10 mg tablet 10 mg PO DAILY Hold Instructions: Hold until finishing tapering dose of Prednisone Discharge Orders: Discharge Order (Routine); Ordered 12/31/23 Ordered By: Jackie Edmond Diet: Low salt diet Activity on Discharge: As tolerated Stand Alone Forms: Patient Portal Discharge page Print Language: Persian Care Plan Goals: Low sodium diet; Fluids restriction Watch your weight at home and use Lasix 40 mg in the morning and 20 mg in the afternoon Prednisone tapering dose Doxycycline and Ceftin for 5 more days Use your home Nebulizers 4 times for the next 3-5 days then as scheduled You will need 2L of Oxygen at bedtime Your blood pressure significantly elevated; To start Losartan 25 mg and monitor BP at home, report 1 week readings to PCP to adjust medications as needed. Health Concerns: Read below Plan of Treatment: Read below Assessment: Read below
[2023-12-31 11:21] VITALS: PULSE 73; RESP 16
== END 2023-12-31 13:22 | disposition home or self-care (01) | DRG 871 ==
LOC: HO.ED 12:59 → HO.EDOVER 15:48 → HO.S3 19:04
PROVIDERS: Physician Assistant; Admitting Provider Student in an Organized Health Care Education/Training Program; Emergency Provider Student in an Organized Health Care Education/Training Program; PCP Family Medicine; Visit Provider Student in an Organized Health Care Education/Training Program
DX: A41.9 Sepsis, unspecified organism (principal); I50.33 Acute on chronic diastolic (congestive) heart failure; J18.9 Pneumonia, unspecified organism; J44.0 Chronic obstructive pulmonary disease with (acute) lower respiratory infection; N17.9 Acute kidney failure, unspecified; I13.0 Hypertensive heart and chronic kidney disease with heart failure and stage 1 through stage 4 chronic kidney disease, or unspecified chronic kidney disease; J45.41 Moderate persistent asthma with (acute) exacerbation; N40.0 Benign prostatic hyperplasia without lower urinary tract symptoms; I48.0 Paroxysmal atrial fibrillation; N18.30 Chronic kidney disease, stage 3 unspecified; Z20.822 Contact with and (suspected) exposure to COVID-19; Z91.041 Radiographic dye allergy status; Z79.01 Long term (current) use of anticoagulants; Z79.52 Long term (current) use of systemic steroids; Z79.899 Other long term (current) drug therapy
CPT/HCPCS: 0241U; 36415; 36600; 71045; 80048; 80053; 82803; 83605; 83690; 83735; 83880; 84484; 85025; 85027; 85610; 87040; 93005; 94640; 99285; J0456; J0696; J1940; J2919

== ENCOUNTER 2023-12-27 15:36 | Outpatient (BNV) | payer MEDICARE, OTHER, SELFPAY | END 2023-12-27 15:47 | PROVIDERS: Admitting Provider Student in an Organized Health Care Education/Training Program; Emergency Provider Student in an Organized Health Care Education/Training Program; PCP Family Medicine; Visit Provider Internal Medicine Cardiovascular Disease | DX: I50.32 Chronic diastolic (congestive) heart failure (principal); R60.9 Edema, unspecified; R06.02 Shortness of breath | CPT/HCPCS: 93010 ==

== ENCOUNTER → 2023-12-27 15:36 | Outpatient (BNV) | payer MEDICARE, OTHER, SELFPAY | PROVIDERS: Admitting Provider Student in an Organized Health Care Education/Training Program; Emergency Provider Student in an Organized Health Care Education/Training Program; PCP Family Medicine; Visit Provider Student in an Organized Health Care Education/Training Program | DX: J44.1 Chronic obstructive pulmonary disease with (acute) exacerbation (principal); J18.9 Pneumonia, unspecified organism; A41.9 Sepsis, unspecified organism; J98.4 Other disorders of lung; I50.32 Chronic diastolic (congestive) heart failure; M79.89 Other specified soft tissue disorders | CPT/HCPCS: 99223; 99232; 99239 ==

== ENCOUNTER 2024-01-09 13:49 | Outpatient (AMB) | payer MEDICARE, OTHER, SELFPAY ==
--- NOTE | 2024-01-09 10:31 | A.OFFPC_ITS ---
Vital Signs 01/09/24 14:24 Height 5 ft 9 in Weight 216 lb 8 oz BMI 32.0 BP 100/60 Blood Pressure Location Lt brachial Position Sitting Respiration 14 Pulse 62 Pulse Source Pulse Oximeter Temp 97.7 F Temp Source Tympanic Pulse Oximetry (%) 95 Oxygen Delivery Method Room Air Intake Visit Reasons: TCM Intake Note: tcm Allergies watermelon [WATERMELON] Allergy (Severe, Verified 01/09/24 14:26) ANAPHYLAXIS Iodinated Contrast Media [IV CONTRAST] Allergy (Intermediate, Verified 01/09/24 14:26) LIGHT HEADED AND SHORTNESS OF BREATH Tobacco use date assessed: 09/26/23 Dental Screening Dental Screen Date: 09/26/23 HPI TCM HPI Details 68 y/o male presents today for TCM. Had went to the hospital on the and was there until the for worsening shortness of breath. R lobe pneumonia - treated with azithromycin and ceftriaxone. Switched to doxycycline and cefritaxone for 5 days after discharge. Also has acute COPD exacerbation. Denies any fevers/chills today. He notes breathing has improved. Was also treated for sepsis with antibiotics as above. Some CHF - treated with diuretics, salt restriction and fluid restriction. Is on furosemide - he notes he is on 40mg in the morning and 20mg in the afternoon. Continues to elevate his legs. Notes LE swelling improved. He notes he is still on prednisone taper. Has been using oxygen at home. Had put himself on oxygen when O2 was 84-86. TCM TCM Information Date of Discharge 12/31/23 Discharged From [facility] Interactive Contact Date (Reference documentation from this date) 01/09/24 HPI Comments History of Present Illness Details Documentation assistance for Guilherme Mcallister MD, was provided by Felix Oconnor,? Derrick Helper on 01/09/2024 at 2:48 PM EST. I, Dr. Mcallister, have read, observed, and verified documentation. [facility] Medical History (Updated 01/09/24 @ 14:46 by Guilherme Mcallister MD) CHF (congestive heart failure) Chronic lung disease COPD with acute exacerbation Chronic lung disease Chronic lung disease Tubular adenoma of colon (~2005) COPD (chronic obstructive pulmonary disease) Pulmonary nodules RAYMOND on CPAP Chronic rhinitis Asthma-COPD overlap syndrome PAF (paroxysmal atrial fibrillation) (~2017) Echocardiogram abnormal Encounter for screening for lung cancer Edema leg Venous insufficiency of both lower extremities AC (acromioclavicular) joint arthritis BPH (benign prostatic hyperplasia) Seasonal allergies Hyperlipidemia Surgical History History of appendectomy History of esophagogastroduodenoscopy (EGD) History of total left hip replacement (~2019) History of repair of right rotator cuff (~2017) History of nasal septoplasty (~2008) History of colonoscopy History of cataract (~2009) Family History Father No problems noted. Mother CAD (coronary artery disease) CHF (congestive heart failure) HTN (hypertension) Brother No problems noted. Brother No problems noted. Sister No problems noted. Sister No problems noted. Sister Mental health disorder Son No problems noted. Son No problems noted. Social History Household Members: Spouse, Family and Children Housing: House Do you presently have visiting nurse or other home services: No Alcohol intake: current Alcohol intake frequency: holidays/special occasions only Patient Tobacco Use Status: Former Tobacco user Tobacco use type: Cigarette Years Smoked: 40 years e-Cigarette/Vaping Use: Former Use Second Hand Smoke Exposure: No Advance Directives Date on File: 10/10/22 service: Yes Current occupational status: retired Cognitive needs: No Hearing needs: No Vision needs: No Questionnaire Thrive Questionnaire Date Thrive assessed: 12/28/23 STEVEN-7 AMB Questionnaire STEVEN-7 Date STEVEN - 7 assessed: 06/27/23 Source: Developed by Drs. Kwame William, Cayla Candelario, Damian Lee and colleagues, with an educational maria g from [employer]. Review of Systems Const Denies chills, Denies fatigue, Denies fever(s), Denies headache(s) and Denies weakness ENT Denies dizziness and Denies headache(s) Card Denies dyspnea Resp Denies cough, Denies dyspnea, Denies wheezing and Denies other (shortness of breath) Musc Denies numbness and Denies tingling Neuro Denies dizziness, Denies headache(s), Denies numbness, Denies tingling and Denies weakness Psych Denies anxiety and Denies depression Endo Denies fatigue Aller/Immun Denies wheezing Physical exam (Primary Care) Vital Signs: Last Vital Signs Temp 97.7 F 01/09/24 14:24 Pulse 62 01/09/24 14:24 Resp 14 01/09/24 14:24 BP 100/60 01/09/24 14:24 Pulse Ox 95 01/09/24 14:24 Oxygen Delivery Method Room Air 01/09/24 14:24 BMI result Body Mass Index 32.0 Tobacco/Smoking Status: Tobacco use Status Tobacco use date assessed 09/26/23 01/09/24 10:32 Patient Tobacco Use Status Former Tobacco user 01/09/24 10:32 Tobacco use type Cigarette 01/09/24 10:32 e-Cigarette/Vaping Use Former Use 01/09/24 10:32 Thrive Assessment: Date of Thrive Assessment Date Thrive assessed 12/28/23 01/09/24 10:32 Const General: well developed; No acute distress Nutritional Appearance: well nourished Orientation/consciousness: patient oriented x3 HENMT Head: Yes normocephalic and Yes atraumatic Eyes General: appearance normal, both eyes and all related structures Pupils: Equal, round and reactive pupils present EOM: EOMs intact bilaterally Resp Other: Crackles and groans, R side Effort & Inspection: normal respiratory effort Auscultation: not clear to auscultation bilaterally Cardio Rate: regular rate Rhythm: regular rhythm Heart sounds: S1 normal heart sound present, S2 normal heart sound present, no gallops, no murmurs and no rubs Neuro General: patient oriented x3 and gait normal Cranial nerves: Yes Equal, round and reactive pupils present Psych Affect: normal affect Assessment and Plan Assessment & Plan (1) Pneumonia: Code(s): J18.9 - Pneumonia, unspecified organism Plan: Right?middle?lobe?pneumonia Treated?with?azithromycin?and?ceftriaxone Switched?to?doxycycline?and?ceftriaxone?for?5?more?days?after?discharge Finished?with?antibiotic Still?has?significantly?abnormal?breath?sounds?on?the?right. Will?check?a?chest?x-ray. 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 Now?on?prednisone?taper?for?another?week Patient?has?at-home?oxygen?for?nighttime.??However?he?has?noticed?that?is?oxygen ?saturations?have?gone?down?into?low?80s?at?times Advised?him?to?use?his?oxygen?even?in?the?daytime?at?2?liters/minutes?if?oxygen? is?dropping?below?88% Follow-up?with?pulmonology Continue?inhaled?medications?and?finish?prednisone?taper (4) CHF (congestive heart failure): Code(s): I50.9 - Heart failure, unspecified Qualifiers: Heart failure chronicity: chronic Heart failure type: diastolic Qualified Code(s): I50.32 - Chronic diastolic (congestive) heart failure Plan: Treated?with?diuretics, salt?restriction?and?fluid?restriction Continue?furosemide 40?mg?in?the?morning?and?20?mg?at?night Watch?for?increasing?dyspnea/orthopnea Watch?for?increases?in?weight?and?edema (5) Edema leg: Comment: chronic from venous insufficiency Code(s): R60.0 - Localized edema Plan: Lower?extremity?edema?is?much?improved. As?above?continue?furosemide Elevate?legs Orders: Orders XR chest 2V Today R06.89 - Other abnormalities of breathing Coding Level of Care Code TCM High MDM <= 14 days Diagnoses Pneumonia J18.9 Sepsis A41.9 Acute exacerbation of chronic obstructive pulmonary disease J44.1 Chronic diastolic congestive heart failure I50.32 Heart failure chronicity: chronic Heart failure type: diastolic Edema leg R60.0
[2024-01-09 14:24] VITALS: BP 100/60; PULSE 62; RESP 14; TEMP 36.5; O2SAT 95; BMI 32.0
== END 2024-01-09 14:50 | disposition home or self-care (01) ==
PROVIDERS: PCP Family Medicine; Visit Provider Family Medicine
DX: J18.9 Pneumonia, unspecified organism (principal); A41.9 Sepsis, unspecified organism; J44.1 Chronic obstructive pulmonary disease with (acute) exacerbation; I50.32 Chronic diastolic (congestive) heart failure; R60.0 Localized edema
CPT/HCPCS: 99495

== ENCOUNTER 2024-01-13 14:02 | Outpatient (REF) | payer MEDICARE, OTHER, SELFPAY ==
--- NOTE | ~2024-01-13 | XR_ITS ---
EXAMINATION: XR CHEST CLINICAL INFORMATION: Abnormality of breathing. COMPARISON: Most recent chest radiograph dated 12/27/2023. TECHNIQUE: 2 views of the chest were obtained. FINDINGS: Interval decrease with near complete resolution of previously seen patchy bibasilar opacities. No new or increasing airspace consolidation. No pleural effusion or pneumothorax. Stable cardiomediastinal silhouette. XR/XR chest 2V IMPRESSION: Interval decrease with near complete resolution of previously seen patchy bibasilar opacities. Electronically signed by: Frankie Fan MD 02/03/2024 08:56 PM EDT
[2024-01-13 16:42] LABS: Anion Gap 15 (12-20); Blood Urea Nitrogen 37 mg/dL (9-16); Calcium 9.3 mg/dL (8.4-10.2); Carbon Dioxide 24 mmol/L (22-29); Chloride 104 mmol/L (96-108); Estimated Glomerular Filt Rate 32; Glucose Random 133 mg/dL (60-115); Potassium 4.3 mmol/L (3.3-5.1); Sodium 139 mmol/L (135-145)
== END 2024-01-13 14:03 | disposition home or self-care (01) ==
LOC: HO.HMGCX 14:02
PROVIDERS: PCP Family Medicine; Referring Provider Internal Medicine Hypertension Specialist; Visit Provider Family Medicine
DX: R60.9 Edema, unspecified (principal); N18.9 Chronic kidney disease, unspecified; R06.89 Other abnormalities of breathing
CPT/HCPCS: 36415; 71046; 80048

== ENCOUNTER 2024-01-14 10:08 | Outpatient (AMB) | payer MEDICARE, OTHER, SELFPAY ==
--- NOTE | 2024-01-14 10:18 | HO.NEPHOV_ITS ---
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: No Accompanied by: Self / Same As Patient Allergies watermelon [WATERMELON] Allergy (Severe, Verified 01/14/24 10:55) ANAPHYLAXIS Iodinated Contrast Media [IV CONTRAST] Allergy (Intermediate, Verified 01/14/24 10:55) LIGHT HEADED AND SHORTNESS OF BREATH Medication List - Last Reconciled 01/14/24 by Jd Yates MD albuterol sulfate 90 mcg/actuation 2 puffs inhalation QID PRN apixaban (Eliquis) 5 mg PO BID arformoterol (Brovana) 15 mcg (2 mL) inhalation BID atorvastatin 80 mg PO DAILY benzonatate 100 mg PO TID PRN budesonide 0.5 mg (2 mL) inhalation BID bupropion HCl 150 mg (2 x 75 mg) PO BID 90 days CPAP (CPAP Machine/Device) As directed doxycycline monohydrate 100 mg PO BID dronedarone (Multaq) 400 mg PO BID 90 days furosemide 40 mg PO DAILY furosemide (Lasix) 20 mg PO DAILY@1700 guaifenesin ER (Mucinex) 600 mg PO BID levalbuterol HCl 1.25 mg (3 mL) inhalation BID 90 days montelukast 10 mg PO DAILY nebulizers As directed prednisone See Taper mg PO DIRECTED prednisone 10 mg PO DAILY roflumilast 500 mcg PO DAILY tamsulosin (Flomax) 0.4 mg PO BID 90 days tezepelumab-ekko (Tezspire) 210 mg subcut Q4W theophylline ER 300 mg PO Q48H HPI Comments Details: . Kiran is a pleasant 68-year-old man with a history of hypertension COPD with peripheral vascular disease. He has had significantly leg edema. He was on amlodipine which has been discontinued recently. He is on Lasix 20 mg a day. He has underlying CKD with a serum creatinine of around 1.2-1.3 at baseline. Recently there has been a bump in serum creatinine up to 1.6. He was on lisinopril 20 mg a day which has been discontinued few months ago. The diuretics are being adjusted based on the creatinine but he continues to have leg edema and hence this referral. He is history of COPD and obstructive sleep apnea. Was recently hospitalized for exacerbation of COPD. He is currently on prednisone. He had an echocardiogram which did not reveal any significant right sided heart failure. He has a significant history of smoking for almost 40 years 1-2 packs per day he quit smoking about 15 years ago. Review of system was positive for significantly leg edema. He had increased urinary frequency which has resolved. No nausea vomiting no chest pain no palpitations no fever no rash 10/28/2023. He admits taking Bumex for for a week. He took it for few days. Repeat serum creatinine was 1.62. No increase in BUN. He continues her leg edema. Urine did not reveal any significant proteinuria 11/26/2023. He was on Bumex 0.5 mg once a day. However he felt that the leg edema was wors ening. He went to the ER and he had more swelling. Bumex was increased to 1 mg a day. However is still believes that the edema gets worse with a high dose of Bumex. He has significant redness in his legs which is pain Doppler did not reveal any DVTs 12/12/2023. After course of antibiotics the erythema has improved. He is still has edema. He is tolerating Lasix well. 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 01/14/24 Recently in [facility] for pneumonia;Treated with antibiotics LEgs with edema Erythema improved with antibiotics [facility] Medical History (Updated 01/14/24 @ 11:18 by Sha Head MD) Nocturnal hypoxia CHF (congestive heart failure) Chronic lung disease COPD with acute exacerbation Chronic lung disease Chronic lung disease Tubular adenoma of colon (~2005) COPD (chronic obstructive pulmonary disease) Pulmonary nodules RAYMOND on CPAP Chronic rhinitis Asthma-COPD overlap syndrome PAF (paroxysmal atrial fibrillation) (~2017) Echocardiogram abnormal Encounter for screening for lung cancer Edema leg Venous insufficiency of both lower extremities AC (acromioclavicular) joint arthritis BPH (benign prostatic hyperplasia) Seasonal allergies Hyperlipidemia Surgical History History of appendectomy History of esophagogastroduodenoscopy (EGD) History of total left hip replacement (~2019) History of repair of right rotator cuff (~2017) History of nasal septoplasty (~2008) History of colonoscopy History of cataract (~2009) Family History Father No problems noted. Mother CAD (coronary artery disease) CHF (congestive heart failure) HTN (hypertension) Brother No problems noted. Brother No problems noted. Sister No problems noted. Sister No problems noted. Sister Mental health disorder Son No problems noted. Son No problems noted. Social History Household Members: Spouse, Family and Children Housing: House Do you presently have visiting nurse or other home services: No Alcohol intake: current Alcohol intake frequency: holidays/special occasions only Patient Tobacco Use Status: Former Tobacco user Tobacco use type: Cigarette Years Smoked: 40 years e-Cigarette/Vaping Use: Former Use Second Hand Smoke Exposure: No Advance Directives Date on File: 10/10/22 service: Yes Current occupational status: retired Cognitive needs: No Hearing needs: No Vision needs: No Physical Exam Vital Signs: Last Vital Signs Pulse 43 L 01/14/24 10:21 BP 88/42 L 01/14/24 10:21 Pulse Ox 94 01/14/24 10:21 Oxygen Delivery Method Room Air 01/14/24 10:21 BMI result Body Mass Index 32.8 Const General: comfortable; No acute distress Orientation/consciousness: patient oriented x3 Eyes General: appearance normal, both eyes and all related structures Visual [place]: normal visual españa by confrontation Neck Neck: Yes supple and Yes no JVD Resp Effort & Inspection: normal respiratory effort and respiratory effort not decreased Auscultation: rhonchi Cardio Palpation: no palpable S3 and no palpable S4 Heart sounds: no rubs GI Inspection: Yes normal to inspection Palpation (GI): Soft to palpation Percussion: Yes normal to percussion Auscultation: normal bowel sounds General: No CVA tenderness Back/Spine/Pelvis Back: No CVA tenderness Skin General skin exam: no petechiae and no purpura Neuro General: patient oriented x3 and no focal motor deficits Extrem Other: Erythema in both lower extremities with tenderness General: No clubbing and Yes edema Results Reviewed Nephrology Results: Hgb 11.9 g/dl (14.0-18.0) L 12/29/23 WBC 18.1 X10*3/uL (4.8-10.8) H 12/29/23 Plt Count 365 X10*3/uL (160-400) 12/29/23 Sodium 139 mmol/L (135-145) 01/13/24 Potassium 4.3 mmol/L (3.3-5.1) 01/13/24 Chloride 104 mmol/L (96-108) 01/13/24 Carbon Dioxide 24 mmol/L (22-29) 01/13/24 BUN 37 mg/dL (9-16) H 01/13/24 Creatinine 2.05 mg/dL (0.5-1.4) H 01/13/24 Calcium 9.3 mg/dL (8.4-10.2) 01/13/24 Assessment & Plan Assessment & Plan (1) Edema: Code(s): R60.9 - Edema, unspecified Category: Medical (2) CKD (chronic kidney disease): Code(s): N18.9 - Chronic kidney disease, unspecified Category: Medical (3) Carotid stenosis, bilateral: Code(s): I65.23 - Occlusion and stenosis of bilateral carotid arteries Category: Medical (4) Hypertension: Code(s): I10 - Essential (primary) hypertension Category: Medical Qualifiers: Hypertension type: primary hypertension Qualified Code(s): I10 - Essential (primary) hypertension Plan . 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 Superimposed CHATO due to hypoperfusion in the setting of LATONIA inhibitors and diuretics. Renal ultrasonogram was unremarkable No significant proteinuria serum immunofixation shows IgG kappa monoclonal protein Urinary sediments are bland therefore glomerular/ interstitial disease seem unlikely Echocardiogram revealed normal right ventricular pressures without evidence of right heart failure Serum albumin was relatively low at 3.1. Mild elevation in alkaline phosphatase and ALT; repeat LFTs were normal Keep current dose of LAsix Another course of Doxycycline for 10 days and reevaluate legs Stay on low-sodium diet. Leg elevation No need for Doppler ultrasonogram of the renal arteries at this time. Avoid calcium channel blockers like amlodipine Agree with holding LATONIA inhibitors until renal function stabilizes. . Orders: Orders Basic Metabolic Panel 6 Weeks N18.9 - Chronic kidney disease, unspecified Medications: Refilled doxycycline monohydrate 100 mg PO BID 10 caps 0RF Discontinued losartan Discontinued Reason: Doctor's Order 25 mg PO DAILY 90 tabs 0RF Coding Level of Care Code Est Pt Level 4 (39619) Diagnoses Edema R60.9 CKD (chronic kidney disease) N18.9 Carotid stenosis, bilateral I65.23 Primary hypertension I10 Hypertension type: primary hypertension
[2024-01-14 10:21] VITALS: BP 88/42; PULSE 43; O2SAT 94; BMI 32.8
== END 2024-01-14 10:36 | disposition home or self-care (01) ==
PROVIDERS: PCP Family Medicine; Visit Provider Internal Medicine Hypertension Specialist
DX: R60.9 Edema, unspecified (principal); I12.9 Hypertensive chronic kidney disease with stage 1 through stage 4 chronic kidney disease, or unspecified chronic kidney disease; N18.9 Chronic kidney disease, unspecified; I65.23 Occlusion and stenosis of bilateral carotid arteries
CPT/HCPCS: 99214

== ENCOUNTER → 2024-01-14 10:08 | Outpatient (BNVA) | payer MEDICARE, OTHER, SELFPAY | PROVIDERS: PCP Family Medicine; Visit Provider Internal Medicine Hypertension Specialist | DX: G47.33 Obstructive sleep apnea (adult) (pediatric) (principal); J44.9 Chronic obstructive pulmonary disease, unspecified; J41.1 Mucopurulent chronic bronchitis; R91.8 Other nonspecific abnormal finding of lung field; J31.0 Chronic rhinitis; G47.34 Idiopathic sleep related nonobstructive alveolar hypoventilation; Z99.89 Dependence on other enabling machines and devices; I12.9 Hypertensive chronic kidney disease with stage 1 through stage 4 chronic kidney disease, or unspecified chronic kidney disease; N18.9 Chronic kidney disease, unspecified; R60.9 Edema, unspecified; I65.23 Occlusion and stenosis of bilateral carotid arteries | CPT/HCPCS: 99212 ==

== ENCOUNTER 2024-01-14 10:44 | Outpatient (AMB) | payer MEDICARE, OTHER, SELFPAY ==
[2024-01-14 10:54] VITALS: BP 124/58; PULSE 60; O2SAT 95; BMI 32.0
--- NOTE | 2024-01-14 10:54 | MHC.OFFVIS ---
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 He has been using CPAP therapy the CPAP therapy has been very affecting beneficial. The CPAP therapy he uses every night for more than 4 hours. Recently he did have a CT scan of his chest for the lung cancer screening program and is nodular densities have resolved which is very reassuring. He is scheduled for the CT scan in a year's time. I am hopeful that we can decrease the amount of Xopenex that he is using and then hopefully decrease the amount of budesonide that he is using. His CPAP therapy has been affecting beneficial. He has been getting supplies through [facility] now regularly. His CPAP therapy he does use for more than 4 hours a night. He has lost about 30 lb. He still on Daliresp that is likely contributing to that. If he co 08/28/2023 the patient is here for sick visit. He is having hard time with his breathing. The patient recently call the office with worsening risk was sent to the ER. He wants admitted on August 04 to the hospital. He had a chest x-ray demonstrating bilateral pneumonia. This is superimposed on his underlying interstitial lung disease. He was treated with prednisone addition to antibiotics subsequently discharged. He did not require oxygen upon discharge. The patient has been weaning off the prednisone down to 10 mg of prednisone having hard time with his breathing. He is then in bed now for about 3 days. His coughing has gotten worse expectorating discolored mucus. Denies any hemoptysis. In the office he does have significant wheezing chest tightness. Will go ahead and give him a couple treatments of DuoNeb. Hopefully we can improve his respiratory symptoms we can start antibiotics and give him additional Solu-Medrol and prednisone for home. If however he does not improve after the breathing treatments then will consider transferring him to the ER. 09/18/2023 the patient is here for a pulmonary follow-up visit. The patient recently was hospitalized because of the bad bronchopneumonia and asthma exacerbation. He is now recovering. He feels a little better although starting to get chest tightness again. He has been using prednisone 20 mg daily in his also been using all his respiratory medicines. He is also developing some lower extremity edema swelling redness. Is tender to the touch. It appears to be bilateral cellulitis. I did review his chest x-ray he did have run this is a week ago and compared to the x-ray he had when he was admitted to the hospital still demonstrates hazy opacities suggesting some component of pneumonitis. Therefore will increase the prednisone and also will keep him on some antibiotics to treat him for cellulitis. He will return in 3-4 weeks. If he has any worsening symptoms he will call prior to that visit. 10/07/2023 the patient is here for a pulmonary follow-up visit. The patient is feeling lot better. He is recovering now closer to his baseline. He is down to 20 mg of prednisone. He would like to come off. However, will need to very careful as we wean off slowly. Therefore will decrease by 5 mg every 7-10 days. Hopefully he can come off completely. He continues on his respiratory therapy with good effect. He also continues with CPAP using more than 4 hours a night. The CPAP therapy continues to be affecting beneficial. The lower extremity edema as a little better he continues to have some degree of erythema but it does not look infected anymore. He did complete the doxycycline. Otherwise patient is doing better so therefore we will continue his current respiratory regimen and hopefully we can wean off completely from the prednisone. Will follow-up in 4 months. [facility] Medical History (Updated 01/14/24 @ 11:18 by Sha Head MD) Nocturnal hypoxia CHF (congestive heart failure) Chronic lung disease COPD with acute exacerbation Chronic lung disease Chronic lung disease Tubular adenoma of colon (~2005) COPD (chronic obstructive pulmonary disease) Pulmonary nodules RAYMOND on CPAP Chronic rhinitis Asthma-COPD overlap syndrome PAF (paroxysmal atrial fibrillation) (~2017) Echocardiogram abnormal Encounter for screening for lung cancer Edema leg Venous insufficiency of both lower extremities AC (acromioclavicular) joint arthritis BPH (benign prostatic hyperplasia) Seasonal allergies Hyperlipidemia Surgical History History of appendectomy History of esophagogastroduodenoscopy (EGD) History of total left hip replacement (~2019) History of repair of right rotator cuff (~2017) History of nasal septoplasty (~2008) History of colonoscopy History of cataract (~2009) Family History Father No problems noted. Mother CAD (coronary artery disease) CHF (congestive heart failure) HTN (hypertension) Brother No problems noted. Brother No problems noted. Sister No problems noted. Sister No problems noted. Sister Mental health disorder Son No problems noted. Son No problems noted. Social History Household Members: Spouse, Family and Children Housing: House Do you presently have visiting nurse or other home services: No Alcohol intake: current Alcohol intake frequency: holidays/special occasions only Patient Tobacco Use Status: Former Tobacco user Tobacco use type: Cigarette Years Smoked: 40 years e-Cigarette/Vaping Use: Former Use Second Hand Smoke Exposure: No Advance Directives Date on File: 10/10/22 service: Yes Current occupational status: retired Cognitive needs: No Hearing needs: No Vision needs: No Review of Systems Const Reports daytime sleepiness, Reports difficulty sleeping and Reports fatigue Eyes Denies change in vision ENT Reports nasal congestion, Reports nasal discharge and Reports sore throat Card Denies chest pain and Reports dyspnea on exertion Resp Reports cough, Denies hemoptysis, Reports dyspnea on exertion and Reports wheezing GI Reports no additional complaints Musc Reports no additional complaints Skin/Breast Denies rash Neuro Reports no additional complaints Psych Reports no additional complaints Endo Reports fatigue and Denies heat intolerance Kelvin/Lymph Denies easy bleeding, Denies easy bruising and Denies lymphadenopathy Aller/Immun Reports wheezing Physical Exam Vital Signs: Last Vital Signs Pulse 60 01/14/24 10:54 BP 119/52 L 01/14/24 11:32 Pulse Ox 95 01/14/24 10:54 Oxygen Delivery Method Room Air 01/14/24 10:54 BMI result Body Mass Index 32.0 Const General: comfortable and alert Orientation/consciousness: patient oriented x3 Eyes Pupils: Equal, round and reactive pupils present Neck Neck: Yes normal visual inspection, Yes full ROM and Yes no lymphadenopathy Chest Chest palpation & inspection: normal inspection of the chest Resp Effort & Inspection: normal respiratory effort and prolonged expiratory phase Auscultation: rhonchi, no wheezes and diminished lung sounds Cardio Rate: regular rate Rhythm: regular rhythm Heart sounds: S1 normal heart sound present and S2 normal heart sound present GI Palpation (GI): Soft to palpation and nontender Auscultation: normal bowel sounds General: Yes no CVA tenderness Back/Spine/Pelvis Back: no CVA tenderness Skin General skin exam: no rashes or lesions noted Neuro General: patient oriented x3 Cranial nerves: Yes Equal, round and reactive pupils present Extrem General: Yes no clubbing, cyanosis or edema Results Reviewed Results Reviewed: personally reviewed CXR 01/12 and also yousuf december demonstrating a right sided nodular opacity Assessment & Plan Assessment & Plan (1) Asthma-COPD overlap syndrome: Code(s): J44.9 - Chronic obstructive pulmonary disease, unspecified Category: Medical (2) COPD (chronic obstructive pulmonary disease): Code(s): J44.9 - Chronic obstructive pulmonary disease, unspecified Category: Medical Qualifiers: COPD type: chronic bronchitis Chronic bronchitis type: mucopurulent Qualified Code(s): J41.1 - Mucopurulent chronic bronchitis (3) Pulmonary nodules: Code(s): R91.8 - Other nonspecific abnormal finding of lung field Category: Medical (4) RAYMOND on CPAP: Code(s): G47.33 - Obstructive sleep apnea (adult) (pediatric); Z99.89 - Dependence on other enabling machines and devices Category: Medical (5) Chronic rhinitis: Code(s): J31.0 - Chronic rhinitis Category: Medical (6) Nocturnal hypoxia: Code(s): G47.34 - Idiopathic sleep related nonobstructive alveolar hypoventilation Category: Medical Plan Ct chest to assess right sided nodular density Prednisone with slow taper continue Tezspire [id number], Will call Dr Ornelas about changing Biologic continue Brovana/BUdesonide BID ANN as needed continue APAP, adjusted pressures 6-12, will request titration based on the hypoxia continue oxygen supplementation while sleeping F/U 1-2 months Orders: Orders CT chest wo IV con Today R93.89 - Abnormal findings on diagnostic imaging of other specified body structures RT PSG in-lab sleep titration Today G47.33 - Obstructive sleep apnea (adult) (pediatric), G47.34 - Idiopathic sleep related nonobstructive alveolar hypoventilation, Z99.89 - Dependence on other enabling machines and devices Coding Level of Care Code Est Pt Level 5 (90625) Complex EM visit Add On G2211 Diagnoses Asthma-COPD overlap syndrome J44.9 Mucopurulent chronic bronchitis J41.1 COPD type: chronic bronchitis Chronic bronchitis type: mucopurulent Pulmonary nodules R91.8 RAYMOND on CPAP G47.33; Z99.89 Chronic rhinitis J31.0 Nocturnal hypoxia G47.34 Time Spent (min) 30
[2024-01-14 11:32] VITALS: BP 119/52; BP 122/54
== END 2024-01-14 12:02 | disposition home or self-care (01) ==
PROVIDERS: PCP Family Medicine; Visit Provider Hospitalist
DX: J41.1 Mucopurulent chronic bronchitis (principal); R91.8 Other nonspecific abnormal finding of lung field; G47.33 Obstructive sleep apnea (adult) (pediatric); Z99.89 Dependence on other enabling machines and devices; J31.0 Chronic rhinitis; G47.34 Idiopathic sleep related nonobstructive alveolar hypoventilation
CPT/HCPCS: 99214; G2211

== ENCOUNTER 2024-01-24 12:30 | Outpatient (AMB) | payer MEDICARE, OTHER, SELFPAY ==
[2024-01-24 12:35] VITALS: BP 122/74; PULSE 64; TEMP 36.8; O2SAT 96; BMI 33.2
--- NOTE | 2024-01-24 12:35 | MHC.OFFWIV ---
Intake Vital Signs 01/24/24 12:35 Height 5 ft 9 in Weight 225 lb BMI 33.2 BP 122/74 Blood Pressure Location Rt brachial Position Sitting Pulse 64 Pulse Source Pulse Oximeter Temp 98.3 F Temp Source Oral Pulse Oximetry (%) 96 Oxygen Delivery Method Room Air Intake Visit Reasons: EP Bilateral swelling/pain/hot Intake Note: PT c/o bilateral leg swelling, pain, hot to touch. Ongoing for years Patient Tobacco Use Status: Former Tobacco user Allergies watermelon [WATERMELON] Allergy (Severe, Verified 01/24/24 12:45) ANAPHYLAXIS Iodinated Contrast Media [IV CONTRAST] Allergy (Intermediate, Verified 01/24/24 12:45) LIGHT HEADED AND SHORTNESS OF BREATH Do you need a note to return to daycare/school/sports/work: No HPI EP Bilateral swelling/pain/hot HPI Details This is a 68-year-old male patient who presents to the walk-in clinic today with report of ongoing lower extremity swelling and discomfort. This has been ongoing for some time, and he has been seen for this by PCP and also his followed by [facility] – [place] Nephrology, Dr. Yates for CKD. Most recent creat 1.6. He was seen with nephrology recently on 01/13 for this same reason. He remains on Lasix, and it was recommended that he continue with low-sodium diet, leg elevation, compression on lower extremities. Utilizes intermittent pneumatic compression boots at home, which are somewhat helpful. He was also started on doxy times 10 days. He has completed this, and states that it was not helpful. Upon further investigation, it was found that patient was recommended to stop the amlodipine given the possible side effects of calcium channel blockers, however he was not sure which medication he was to discontinue, and never stopped the amlodipine. REPLACED BY [facility] Medical History Nocturnal hypoxia CHF (congestive heart failure) Chronic lung disease COPD with acute exacerbation Chronic lung disease Chronic lung disease Tubular adenoma of colon (~2005) COPD (chronic obstructive pulmonary disease) Pulmonary nodules RAYMOND on CPAP Chronic rhinitis Asthma-COPD overlap syndrome PAF (paroxysmal atrial fibrillation) (~2017) Echocardiogram abnormal Encounter for screening for lung cancer Edema leg Venous insufficiency of both lower extremities AC (acromioclavicular) joint arthritis BPH (benign prostatic hyperplasia) Seasonal allergies Hyperlipidemia Surgical History History of appendectomy History of esophagogastroduodenoscopy (EGD) History of total left hip replacement (~2019) History of repair of right rotator cuff (~2017) History of nasal septoplasty (~2008) History of colonoscopy History of cataract (~2009) Family History Father No problems noted. Mother CAD (coronary artery disease) CHF (congestive heart failure) HTN (hypertension) Brother No problems noted. Brother No problems noted. Sister No problems noted. Sister No problems noted. Sister Mental health disorder Son No problems noted. Son No problems noted. Social History Household Members: Spouse, Family and Children Housing: House Do you presently have visiting nurse or other home services: No Alcohol intake: current Alcohol intake frequency: holidays/special occasions only Patient Tobacco Use Status: Former Tobacco user Tobacco use type: Cigarette Years Smoked: 40 years e-Cigarette/Vaping Use: Former Use Second Hand Smoke Exposure: No Advance Directives Date on File: 10/10/22 service: Yes Current occupational status: retired Cognitive needs: No Hearing needs: No Vision needs: No Review of Systems Const All systems reviewed & are unremarkable except as noted in HPI and below Physical Exam Vital Signs: Last Vital Signs Temp 98.3 F 01/24/24 12:35 Pulse 64 01/24/24 12:35 BP 122/74 01/24/24 12:35 Pulse Ox 96 01/24/24 12:35 Oxygen Delivery Method Room Air 01/24/24 12:35 BMI result Body Mass Index 33.2 Const General: cooperative, healthy appearing and no acute distress Limitations: no limitations HEENT Head: Yes normal to inspection Ears: hearing grossly normal bilaterally Neck Neck: Yes no lymphadenopathy Resp Effort & Inspection: normal respiratory effort Auscultation: clear to auscultation bilaterally Cardio Rate: regular rate Rhythm: regular rhythm Skin General skin exam: no rashes or lesions noted Neuro General: gait normal and moves all extremities Extrem Other: BLE (lower legs) tender, warm to touch, slight erythema, 2+ edema, no calf tenderness, negative homans General: Yes capillary refill normal Psych Appearance: grossly normal Mental Status: mental status grossly normal Speech and movement: Normal speech and movement present Assessment & Plan Assessment & Plan (1) CKD (chronic kidney disease): Code(s): N18.9 - Chronic kidney disease, unspecified Qualifiers: Chronic kidney disease stage: unspecified stage Qualified Code(s): N18.9 - Chronic kidney disease, unspecified Plan: Patient with a history of CKD and venous insufficiency causing bilateral lower extremity edema. He remains on Lasix. He never stopped his amlodipine, as was recommended by Dr. Yates when seen last week. I clarified this with patient, and he is going to discontinue this at this time. We discussed ongoing measures for treatment including low-sodium diet, leg elevation, compression of lower extremities. I offered patient Beau wrapping to help with the edema, however he declined and states that his intermittent compression boots at home are quite helpful and he will utilize these more often. He has a follow-up with nephrology on 02/26. With patient's consent, I called this office and left a message to request a sooner appointment if possible. Patient also has an appointment with his PCP Dr. Mcallister on 02/02. Should symptoms worsen in the meantime, he can certainly return to the walk-in clinic for further evaluation. Patient verbalizes understanding and agrees to plan. (2) Venous insufficiency of both lower extremities: Code(s): I87.2 - Venous insufficiency (chronic) (peripheral) Plan As above Coding Level of Care Code Est Pt Level 4 (98071) Diagnoses Chronic kidney disease, unspecified CKD stage N18.9 Chronic kidney disease stage: unspecified stage Venous insufficiency of both lower extremities I87.2
== END 2024-01-24 13:50 | disposition home or self-care (01) ==
PROVIDERS: PCP Family Medicine; Visit Provider Nurse Practitioner Family
DX: N18.9 Chronic kidney disease, unspecified (principal); I87.2 Venous insufficiency (chronic) (peripheral)
CPT/HCPCS: 99214

== ENCOUNTER → 2024-01-30 20:30 | Outpatient (REF) | payer MEDICARE, OTHER, SELFPAY | LOC: HO.SL 20:30 | PROVIDERS: PCP Family Medicine; Visit Provider Hospitalist | DX: G47.33 Obstructive sleep apnea (adult) (pediatric) (principal); G47.34 Idiopathic sleep related nonobstructive alveolar hypoventilation; Z99.89 Dependence on other enabling machines and devices | CPT/HCPCS: 95811 ==

== ENCOUNTER → 2024-01-30 21:45 | Outpatient (BNV) | payer MEDICARE, OTHER, SELFPAY | PROVIDERS: PCP Family Medicine; Visit Provider Internal Medicine | DX: G47.33 Obstructive sleep apnea (adult) (pediatric) (principal) | CPT/HCPCS: 95811 ==

== ENCOUNTER 2024-01-31 11:26 | Outpatient (REF) | payer MEDICARE, OTHER, SELFPAY ==
[2024-01-31 14:43] LABS: Alanine Aminotransferase 22 U/L (0-40); Albumin Level 3.7 g/dL (3.5-5.0); Alkaline Phosphatase 92 U/L (39-117); Anion Gap 14 (12-20); Aspartate Amino Transferase 18 U/L (5-37); Bilirubin Total 0.7 mg/dL (0.0-1.0); Blood Urea Nitrogen 22 mg/dL (9-16); Calcium 9.7 mg/dL (8.4-10.2); Carbon Dioxide 28 mmol/L (22-29); Chloride 107 mmol/L (96-108); Estimated Glomerular Filt Rate 33; Glucose Random 67 mg/dL (60-115); Potassium 4.6 mmol/L (3.3-5.1); Sodium 144 mmol/L (135-145)
== END 2024-01-31 11:27 | disposition home or self-care (01) ==
LOC: HO.HMGCLDS 11:26
PROVIDERS: PCP Family Medicine; Referring Provider Internal Medicine Hypertension Specialist; Visit Provider Family Medicine
DX: M79.89 Other specified soft tissue disorders (principal)
CPT/HCPCS: 36415; 80053

== ENCOUNTER 2024-02-03 11:21 | Outpatient (AMB) | payer MEDICARE, OTHER, SELFPAY ==
--- NOTE | 2024-02-03 11:26 | HO.NEPHOV_ITS ---
Vital Signs 02/03/24 11:27 Height 5 ft 9 in Weight 223 lb BMI 32.9 BP 112/42 L Blood Pressure Location Rt brachial Position Sitting Pulse 101 H Pulse Source Pulse Oximeter Pulse Oximetry (%) 91 L Oxygen Delivery Method Room Air Intake Visit Reasons: Edema/ Conf Vice [employer] Sales [employer] Required: No Accompanied by: Self / Same As Patient Allergies watermelon [WATERMELON] Allergy (Severe, Verified 02/03/24 14:31) ANAPHYLAXIS Iodinated Contrast Media [IV CONTRAST] Allergy (Intermediate, Verified 02/03/24 14:31) LIGHT HEADED AND SHORTNESS OF BREATH Medication List - Last Reconciled 02/03/24 by Jd Yates MD albuterol sulfate 90 mcg/actuation 2 puffs inhalation QID PRN apixaban (Eliquis) 5 mg PO BID arformoterol (Brovana) 15 mcg (2 mL) inhalation BID atorvastatin 80 mg PO DAILY benzonatate 100 mg PO BID-TID PRN budesonide 0.5 mg (2 mL) inhalation BID bupropion HCl 150 mg (2 x 75 mg) PO BID 90 days CPAP (CPAP Machine/Device) As directed doxycycline hyclate 100 mg PO BID dronedarone (Multaq) 400 mg PO BID 90 days furosemide 40 mg PO DAILY furosemide (Lasix) 20 mg PO DAILY@1700 guaifenesin ER (Mucinex) 600 mg PO BID levalbuterol HCl 1.25 mg (3 mL) inhalation BID 90 days lisinopril 20 mg PO DAILY metolazone 2.5 mg PO Q OTHER DAY metoprolol succinate ER 100 mg PO DAILY montelukast 10 mg PO DAILY nebulizers As directed Oxygen Home Use As directed roflumilast 500 mcg PO DAILY tamsulosin (Flomax) 0.4 mg PO BID 90 days tezepelumab-ekko (Tezspire) 210 mg subcut Q4W HPI Comments Details: . Kiran is a pleasant 68-year-old man with a history of hypertension COPD with peripheral vascular disease. He has had significantly leg edema. He was on amlodipine which has been discontinued recently. He is on Lasix 20 mg a day. He has underlying CKD with a serum creatinine of around 1.2-1.3 at baseline. Recently there has been a bump in serum creatinine up to 1.6. He was on lisinopril 20 mg a day which has been discontinued few months ago. The diuretics are being adjusted based on the creatinine but he continues to have leg edema and hence this referral. He is history of COPD and obstructive sleep apnea. Was recently hospitalized for exacerbation of COPD. He is currently on prednisone. He had an echocardiogram which did not reveal any significant right sided heart failure. He has a significant history of smoking for almost 40 years 1-2 packs per day he quit smoking about 15 years ago. Review of system was positive for significantly leg edema. He had increased urinary frequency which has resolved. No nausea vomiting no chest pain no palpitations no fever no rash 10/28/2023. He admits taking Bumex for for a week. He took it for few days. Repeat serum creatinine was 1.62. No increase in BUN. He continues her leg edema. Urine did not reveal any significant proteinuria 11/26/2023. He was on Bumex 0.5 mg once a day. However he felt that the leg edema was worsening. He went to the ER and he had more swelling. Bumex was increased to 1 mg a day. However is still believes that the edema gets worse with a high dose of Bumex. He has significant redness in his legs which is pain Doppler did not reveal any DVTs 12/12/2023. After course of antibiotics the erythema has improved. He is still has edema. He is tolerating Lasix well. He is on a course of prednisone prescribed by research soil scientist. 01/14/24 [place] [facility] [place]Treated with antibiotics LEgs with edema Erythema improved with antibiotics 02/03/2024 Continues have leg edema. He was recently in urgent care. No changes were made to diuretics. [facility] Medical History Nocturnal hypoxia CHF (congestive heart failure) Chronic lung disease COPD with acute exacerbation Chronic lung disease Chronic lung disease Tubular adenoma of colon (~2005) COPD (chronic obstructive pulmonary disease) Pulmonary nodules RAYMOND on CPAP Chronic rhinitis Asthma-COPD overlap syndrome PAF (paroxysmal atrial fibrillation) (~2017) Echocardiogram abnormal Encounter for screening for lung cancer Edema leg Venous insufficiency of both lower extremities AC (acromioclavicular) joint arthritis BPH (benign prostatic hyperplasia) Seasonal allergies Hyperlipidemia Surgical History History of appendectomy History of esophagogastroduodenoscopy (EGD) History of total left hip replacement (~2019) History of repair of right rotator cuff (~2017) History of nasal septoplasty (~2008) History of colonoscopy History of cataract (~2009) Family History Father No problems noted. Mother CAD (coronary artery disease) CHF (congestive heart failure) HTN (hypertension) Brother No problems noted. Brother No problems noted. Sister No problems noted. Sister No problems noted. Sister Mental health disorder Son No problems noted. Son No problems noted. Social History Household Members: Spouse, Family and Children Housing: House Do you presently have visiting nurse or other home services: No Alcohol intake: current Alcohol intake frequency: holidays/special occasions only Patient Tobacco Use Status: Former Tobacco user Tobacco use type: Cigarette Years Smoked: 40 years e-Cigarette/Vaping Use: Former Use Second Hand Smoke Exposure: No Advance Directives Date on File: 10/10/22 service: Yes Current occupational status: retired Cognitive needs: No Hearing needs: No Vision needs: No Physical Exam Vital Signs: Last Vital Signs Pulse 101 H 02/03/24 11:27 BP 112/42 L 02/03/24 11:27 Pulse Ox 91 L 02/03/24 11:27 Oxygen Delivery Method Room Air 02/03/24 11:27 BMI result Body Mass Index 32.9 Const General: comfortable; No acute distress Orientation/consciousness: patient oriented x3 Eyes General: appearance normal, both eyes and all related structures Visual [place]: normal visual españa by confrontation Neck Neck: Yes supple and Yes no JVD Resp Effort & Inspection: normal respiratory effort and respiratory effort not decreased Auscultation: rhonchi Cardio Palpation: no palpable S3 and no palpable S4 Heart sounds: no rubs GI Inspection: Yes normal to inspection Palpation (GI): Soft to palpation Percussion: Yes normal to percussion Auscultation: normal bowel sounds General: No CVA tenderness Back/Spine/Pelvis Back: No CVA tenderness Skin General skin exam: no petechiae and no purpura Neuro General: patient oriented x3 and no focal motor deficits Extrem Other: Erythema in both lower extremities with tenderness General: No clubbing and Yes edema Results Reviewed Nephrology Results: Sodium 144 mmol/L (135-145) 01/31/24 Potassium 4.6 mmol/L (3.3-5.1) 01/31/24 Chloride 107 mmol/L (96-108) 01/31/24 Carbon Dioxide 28 mmol/L (22-29) 01/31/24 BUN 22 mg/dL (9-16) H 01/31/24 Creatinine 2.01 mg/dL (0.5-1.4) H 01/31/24 Calcium 9.7 mg/dL (8.4-10.2) 01/31/24 Assessment & Plan Assessment & Plan (1) Edema leg: Comment: chronic from venous insufficiency Code(s): R60.0 - Localized edema Category: Medical (2) CKD (chronic kidney disease): Code(s): N18.9 - Chronic kidney disease, unspecified Category: Medical Qualifiers: Chronic kidney disease stage: unspecified stage Qualified Code(s): N18.9 - Chronic kidney disease, unspecified (3) Edema: Code(s): R60.9 - Edema, unspecified Category: Medical (4) Carotid stenosis, bilateral: Code(s): I65.23 - Occlusion and stenosis of bilateral carotid arteries Category: Medical (5) Hypertension: Code(s): I10 - Essential (primary) hypertension Category: Medical Qualifiers: Hypertension type: primary hypertension Qualified Code(s): I10 - Essential (primary) hypertension Plan . 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 Superimposed CHATO due to hypoperfusion in the setting of LATONIA inhibitors and diuretics. Renal ultrasonogram was unremarkable No significant proteinuria serum immunofixation shows IgG kappa monoclonal protein Urinary sediments are bland therefore glomerular/ interstitial disease seem unlikely Echocardiogram revealed normal right ventricular pressures without evidence of right heart failure Serum albumin was relatively low at 3.1. Mild elevation in alkaline phosphatase and ALT; repeat LFTs were normal Keep current dose of LAsix Add Zaroxolyn 2.5 mg 3 times a week Another course of Doxycycline for 10 days and reevaluate legs Stay on low-sodium diet. Leg elevation No need for Doppler ultrasonogram at this time. Avoid calcium channel blockers like amlodipine Agree with holding LATONIA inhibitors until renal function stabilizes. . Orders: Orders Basic Metabolic Panel 3 Weeks N18.9 - Chronic kidney disease, unspecified, R60.0 - Localized edema Medications: New metolazone 2.5 mg PO Q OTHER DAY 10 tabs 0RF doxycycline hyclate 100 mg PO BID 14 caps 0RF Coding Level of Care Code Est Pt Level 4 (37099) Diagnoses Edema leg R60.0 Chronic kidney disease, unspecified CKD stage N18.9 Chronic kidney disease stage: unspecified stage Edema R60.9 Carotid stenosis, bilateral I65.23 Primary hypertension I10 Hypertension type: primary hypertension
[2024-02-03 11:27] VITALS: BP 112/42; PULSE 101; O2SAT 91; BMI 32.9
== END 2024-02-03 11:51 | disposition home or self-care (01) ==
PROVIDERS: PCP Family Medicine; Visit Provider Internal Medicine Hypertension Specialist
DX: I12.9 Hypertensive chronic kidney disease with stage 1 through stage 4 chronic kidney disease, or unspecified chronic kidney disease (principal); N18.9 Chronic kidney disease, unspecified; R60.0 Localized edema; I65.23 Occlusion and stenosis of bilateral carotid arteries
CPT/HCPCS: 99214

== ENCOUNTER → 2024-02-03 11:21 | Outpatient (BNVA) | payer MEDICARE, OTHER, SELFPAY | PROVIDERS: PCP Family Medicine; Visit Provider Internal Medicine Hypertension Specialist | DX: I13.0 Hypertensive heart and chronic kidney disease with heart failure and stage 1 through stage 4 chronic kidney disease, or unspecified chronic kidney disease (principal); I50.32 Chronic diastolic (congestive) heart failure; I12.9 Hypertensive chronic kidney disease with stage 1 through stage 4 chronic kidney disease, or unspecified chronic kidney disease; I65.23 Occlusion and stenosis of bilateral carotid arteries; I73.9 Peripheral vascular disease, unspecified; N18.9 Chronic kidney disease, unspecified; R60.0 Localized edema; R06.89 Other abnormalities of breathing; M79.89 Other specified soft tissue disorders; J44.9 Chronic obstructive pulmonary disease, unspecified; Z87.891 Personal history of nicotine dependence | CPT/HCPCS: 99212 ==

== ENCOUNTER 2024-02-03 14:18 | Outpatient (AMB) | payer MEDICARE, OTHER, SELFPAY ==
--- NOTE | 2024-02-03 14:29 | A.OFFPC_ITS ---
Vital Signs 02/03/24 14:37 02/03/24 15:15 Height 5 ft 9 in Weight 223 lb 8 oz BMI 33.0 BP 88/42 L 100/40 L Blood Pressure Location Lt brachial Lt brachial Position Sitting Respiration 12 Pulse 86 Pulse Source Pulse Oximeter Temp 97.9 F Temp Source Tympanic Pulse Oximetry (%) 95 Oxygen Delivery Method Room Air Intake Visit Reasons: f/u chronic conditions Intake Note: follo w up for chronic condition Allergies watermelon [WATERMELON] Allergy (Severe, Verified 02/03/24 14:31) ANAPHYLAXIS Iodinated Contrast Media [IV CONTRAST] Allergy (Intermediate, Verified 02/03/24 14:31) LIGHT HEADED AND SHORTNESS OF BREATH Tobacco use date assessed: 09/26/23 Dental Screening Dental Screen Date: 09/26/23 HPI f/u chronic conditions HPI Details 68 y/o male presents to f/u hypertension , CHF, CRF, LE edema. Also f/u chest x-ray to ensure resolution of R lung pneumonia with abnormal breath sounds. Had seen pulmonology 01/14/24. Chest x-ray showed persistent nodular opacity in R hemithorax. They had requested a CT scan of chest. He notes CT scan was done at [facility] that was done last week. Blood pressure today is 88/42, 86p. He is on lisinopril 20mg, metoprolol 100mg daily. [facility] Medical History Nocturnal hypoxia CHF (congestive heart failure) Chronic lung disease COPD with acute exacerbation Chronic lung disease Chronic lung disease Tubular adenoma of colon (~2005) COPD (chronic obstructive pulmonary disease) Pulmonary nodules RAYMOND on CPAP Chronic rhinitis Asthma-COPD overlap syndrome PAF (paroxysmal atrial fibrillation) (~2017) Echocardiogram abnormal Encounter for screening for lung cancer Edema leg Venous insufficiency of both lower extremities AC (acromioclavicular) joint arthritis BPH (benign prostatic hyperplasia) Seasonal allergies Hyperlipidemia Surgical History History of appendectomy History of esophagogastroduodenoscopy (EGD) History of total left hip replacement (~2019) History of repair of right rotator cuff (~2017) History of nasal septoplasty (~2008) History of colonoscopy History of cataract (~2009) Family History Father No problems noted. Mother CAD (coronary artery disease) CHF (congestive heart failure) HTN (hypertension) Brother No problems noted. Brother No problems noted. Sister No problems noted. Sister No problems noted. Sister Mental health disorder Son No problems noted. Son No problems noted. Social History Household Members: Spouse, Family and Children Housing: House Do you presently have visiting nurse or other home services: No Alcohol intake: current Alcohol intake frequency: holidays/special occasions only Patient Tobacco Use Status: Former Tobacco user Tobacco use type: Cigarette Years Smoked: 40 years e-Cigarette/Vaping Use: Former Use Second Hand Smoke Exposure: No Advance Directives Date on File: 10/10/22 service: Yes Current occupational status: retired Cognitive needs: No Hearing needs: No Vision needs: No Questionnaire Thrive Questionnaire Date Thrive assessed: 12/28/23 STEVEN-7 AMB Questionnaire STEVEN-7 Date STEVEN - 7 assessed: 06/27/23 Source: Developed by Drs. Kwame William, Cayla Candelario, Damian Lee and colleagues, with an educational maria g from [employer] (formerly [employer]). Review of Systems Const Denies chills, Denies fatigue, Denies fever(s), Denies headache(s) and Denies weakness ENT Denies dizziness and Denies headache(s) Card Denies chest pain, Denies lightheadedness, Denies dyspnea and Denies other (Palpitations) Resp Denies cough, Denies dyspnea, Denies wheezing and Denies other ( shortness of breath) Musc Denies numbness and Denies tingling Neuro Denies dizziness, Denies headache(s), Denies numbness, Denies tingling, Denies paresthesias and Denies weakness Psych Denies anxiety and Denies depression Endo Denies fatigue Aller/Immun Denies wheezing Physical exam (Primary Care) Vital Signs: Last Vital Signs Temp 97.9 F 02/03/24 14:37 Pulse 86 02/03/24 14:37 Resp 12 02/03/24 14:37 BP 88/42 L 02/03/24 14:37 Pulse Ox 95 02/03/24 14:37 Oxygen Delivery Method Room Air 02/03/24 14:37 BMI result Body Mass Index 33.0 Tobacco/Smoking Status: Tobacco use Status Tobacco use date assessed 09/26/23 02/03/24 14:29 Patient Tobacco Use Status Former Tobacco user 02/03/24 14:29 Tobacco use type Cigarette 02/03/24 14:29 e-Cigarette/Vaping Use Former Use 02/03/24 14:29 Thrive Assessment: Date of Thrive Assessment Date Thrive assessed 12/28/23 02/03/24 14:29 Const General: no acute distress and well developed Nutritional Appearance: well nourished Orientation/consciousness: patient oriented x3 HENMT Head: Yes normocephalic and Yes atraumatic Eyes General: appearance normal, both eyes and all related structures Pupils: Equal, round and reactive pupils present EOM: EOMs intact bilaterally Resp Other: Squeaks, wheezing Effort & Inspection: normal respiratory effort Auscultation: not clear to auscultation bilaterally Cardio Rate: regular rate Rhythm: regular rhythm Heart sounds: S1 normal heart sound present, S2 normal heart sound present, no gallops, no murmurs and no rubs Neuro General: patient oriented x3 and gait normal Cranial nerves: Yes Equal, round and reactive pupils present Psych Affect: normal affect Assessment and Plan Assessment & Plan (1) Hypertension: Code(s): I10 - Essential (primary) hypertension Qualifiers: Hypertension type: primary hypertension Qualified Code(s): I10 - Essential (primary) hypertension Plan: Blood?pressure?is?too?low?today He?says?he?has?been?taking?lisinopril?and?losartan?which?is?rather?redundant.??A lso?taking?metoprolol. Will?have?him?stop?lisinopril Giving?him?a?blood?pressure?monitor Check?blood?pressures?at?home. Take?losartan?25?mg?daily?and?if?systolic?blood?pressures?are?consistently?over? 130?or sometimes?over?140,?he?will?take?1?and?half?tablets (37.5?mg). He?will?continue?his?metoprolol?as?prescribed Close?follow-up; will?return?in?2?weeks.??Call?for?sooner?appointment?if?blood?pressures?are?not? as?expected?or?still?consistently?lower?than?105?systolic?blood?pressure (2) CHF (congestive heart failure): Code(s): I50.9 - Heart failure, unspecified Qualifiers: Heart failure chronicity: chronic Heart failure type: diastolic Qualified Code(s): I50.32 - Chronic diastolic (congestive) heart failure Plan: Does?have?lower?extremity?edema?and?still?has?some?wheezing?in?bilateral?lungs but?BNP?at?last?check?was?okay Minimal?JVD He?is?on?furosemide Continue?current?medication?regimen?and?follow-up?with?Cardiology?as?recommended (3) Abnormal breath sounds: Code(s): R06.89 - Other abnormalities of breathing (4) CKD (chronic kidney disease): Code(s): N18.9 - Chronic kidney disease, unspecified Qualifiers: Chronic kidney disease stage: unspecified stage Qualified Code(s): N18.9 - Chronic kidney disease, unspecified Plan: Recent?visit?with?Nephrology Stable (5) Swelling of lower extremity: Code(s): M79.89 - Other specified soft tissue disorders Plan: Elevate?leg Use?velcro?compression?garments?as?needed Try?to?use pneumatic?compression?as?tolerated Follow-up?with?vascular?surgery Medications: New losartan 25 mg PO DAILY 30 days 30 tabs 1RF blood pressure monitor Automatic, Digital. Dx: I10. Daily As directed, 999 days/lifetime 1 ea 0RF I10 - Essential (primary) hypertension Coding Level of Care Code Est Pt Level 4 (08527) Diagnoses Primary hypertension I10 Hypertension type: primary hypertension Chronic diastolic congestive heart failure I50.32 Heart failure chronicity: chronic Heart failure type: diastolic Abnormal breath sounds R06.89 Chronic kidney disease, unspecified CKD stage N18.9 Chronic kidney disease stage: unspecified stage Swelling of lower extremity M79.89
[2024-02-03 14:37] VITALS: BP 88/42; PULSE 86; RESP 12; TEMP 36.6; O2SAT 95; BMI 33.0
[2024-02-03 15:15] VITALS: BP 100/40
== END 2024-02-03 15:16 | disposition home or self-care (01) ==
LOC: HO.HMCFM 14:18
PROVIDERS: PCP Family Medicine; Visit Provider Family Medicine
DX: I12.9 Hypertensive chronic kidney disease with stage 1 through stage 4 chronic kidney disease, or unspecified chronic kidney disease (principal); I50.32 Chronic diastolic (congestive) heart failure; R06.89 Other abnormalities of breathing; N18.9 Chronic kidney disease, unspecified; M79.89 Other specified soft tissue disorders

== ENCOUNTER 2024-02-05 23:57 | Emergency (ER) | payer MEDICARE, OTHER, SELFPAY ==
--- NOTE | 2024-02-06 | ECG_ITS ---
Test Reason : SOB Blood Pressure : / mmHG Vent. Rate : 068 BPM Atrial Rate : 068 BPM P-R Int : 228 ms QRS Dur : 096 ms QT Int : 394 ms P-R-T Axes : 070 049 062 degrees QTc Int : 418 ms Sinus rhythm with 1st degree A-V block Otherwise normal ECG When compared with ECG of 27-DEC-2023 15:47, TX interval has increased Referred By: Generic ED Physician Electronically Signed By:GHAZALA PRESTON
[2024-02-06 00:07] VITALS: BP 107/43; PULSE 72; O2SAT 98
[2024-02-06 00:25] VITALS: BP 131/46; PULSE 72; RESP 18; O2SAT 98; BMI 31.9
[2024-02-06 01:39] LABS: MANUAL DIFF FLAG NO
[2024-02-06 01:46] LABS: Basophils Absolute Auto 0.1 X10*3/uL (0.0-0.2); Basophils Percent Auto 0.7 % (0-2); Eosinophils Absolute Auto 0.1 X10*3/uL (0.0-0.4); Eosinophils Percent Auto 1.5 % (0-4); Hematocrit 36.1 % (42.0-52.0); Imm Gran Abs Auto 0.05 X10*3/uL (0.00-0.03); Imm Gran Pct Auto 0.6 % (0.0-0.4); Lymphocytes Absolute Auto 1.7 X10*3/uL (1.2-4.9); Lymphocytes Percent Auto 19.5 % (20-40); Mean Corpuscular HGB Conc 33.2 g/dl (31.0-36.0); Mean Corpuscular Hemoglobin 29.2 pg (27.0-33.0); Mean Corpuscular Volume 87.8 fL (80.0-98.0); Mean Platelet Volume 10.5 fL (9.4-12.4); Monocytes Percent Auto 11.2 % (2-11); Neutrophils Absolute Auto 5.6 x10*3/uL (2.0-8.3); Neutrophils Percent Auto 66.5 % (45-73); Platelet Count 313 X10*3/uL (160-400); Red Blood Count 4.11 X10*6/uL (4.60-5.80); Red Cell Distribution Width 13.2 % (11.0-16.0); White Blood Count 8.5 X10*3/uL (4.8-10.8)
[2024-02-06 02:00] LABS: Alanine Aminotransferase 16 U/L (0-40); Albumin Level 3.4 g/dL (3.5-5.0); Alkaline Phosphatase 84 U/L (39-117); Anion Gap 11 (12-20); Aspartate Amino Transferase 15 U/L (5-37); Bilirubin Total 0.4 mg/dL (0.0-1.0); Blood Urea Nitrogen 40 mg/dL (9-16); Calcium 9.1 mg/dL (8.4-10.2); Carbon Dioxide 22 mmol/L (22-29); Chloride 112 mmol/L (96-108); Creatinine Clr Calc Pharmacy 24.3; Estimated Glomerular Filt Rate 18; Glucose Random 104 mg/dL (60-115); Potassium 4.7 mmol/L (3.3-5.1); Sodium 140 mmol/L (135-145); Total Protein 6.4 g/dL (6.5-8.0)
--- NOTE | 2024-02-06 03:55 | PC.NURSE ---
pt requested and given blanket Plan of care ongoing.
--- NOTE | 2024-02-06 04:08 | ED_ITS ---
HPI - SOB/Dyspnea General Chief Complaint: Dyspnea Stated Complaint: hx chf, dizzy x1 week, low bp, sob Time Seen by Provider: 02/06/24 04:08 Source: patient Mode of arrival: EMS Limitations: no limitations History of Present Illness ED Provider: jordan YODER Narrative: Patient's history of COPD on home oxygen as needed history of hypotension comes here as a noticed blood pressure was in 80s at home very anxious on arrival but blood pressure on arrival was 131/46 no chest pain no palpitation no dizziness no passing out episode Related Data Home Medications ?Medication ?Instructions ?Recorded ?Confirmed CPAP (CPAP Machine/Device) 02/15/22 01/14/24 nebulizers 02/15/22 01/14/24 tezepelumab-ekko 210 mg/1.91 mL 210 mg subcut Q4W 08/06/23 02/03/24 (110 mg/mL) subcutaneous pen injector (Tezspire) Oxygen Home Use 01/14/24 benzonatate 100 mg capsule 100 mg PO BID-TID PRN 02/03/24 02/03/24 metoprolol succinate 100 mg 100 mg PO DAILY 02/03/24 02/03/24 tablet,extended release 24 hr Previous Rx's ?Medication ?Instructions ?Recorded dronedarone 400 mg tablet (Multaq) 400 mg PO BID 90 days #180 tabs 05/10/23 apixaban 5 mg tablet (Eliquis) 5 mg PO BID #180 tabs 05/21/23 budesonide 0.5 mg/2 mL suspension 0.5 mg (2 mL) inhalation BID #360 05/21/23 for nebulization mL arformoterol 15 mcg/2 mL solution 15 mcg (2 mL) inhalation BID #360 09/18/23 for nebulization (Brovana) mL levalbuterol HCl 1.25 mg/3 mL 1.25 mg (3 mL) inhalation BID 90 09/18/23 solution for nebulization days #540 mL tamsulosin 0.4 mg capsule (Flomax) 0.4 mg PO BID 90 days #180 caps 09/20/23 montelukast 10 mg tablet 10 mg PO DAILY #90 tabs 09/23/23 albuterol sulfate 90 mcg/actuation 2 puff inhalation QID PRN 10/07/23 aerosol inhaler Shortness Of Breath #8.5 grams roflumilast 500 mcg tablet 500 mcg PO DAILY #90 tabs 11/20/23 atorvastatin 80 mg tablet 80 mg PO DAILY #90 tabs 12/27/23 furosemide 20 mg tablet (Lasix) 20 mg PO DAILY@1700 #60 tabs 12/31/23 furosemide 40 mg tablet 40 mg PO DAILY #90 tabs 12/31/23 guaifenesin 600 mg tablet, 600 mg PO BID #20 tabs 12/31/23 extended release 12 hr (Mucinex) bupropion HCl 75 mg tablet 150 mg (2 x 75 mg) PO BID 90 days 01/27/24 #360 tabs blood pressure monitor #1 ea 02/03/24 doxycycline hyclate 100 mg capsule 100 mg PO BID #14 caps 02/03/24 losartan 25 mg tablet 25 mg PO DAILY 30 days #30 tabs 02/03/24 metolazone 2.5 mg tablet 2.5 mg PO Q OTHER DAY #10 tabs 02/03/24 Allergies Allergy/AdvReac Type Severity Reaction Status Date / Time watermelon [WATERMELON] Allergy Severe ANAPHYLAXIS Verified 02/06/24 00:26 Iodinated Contrast Media Allergy Intermediate LIGHT Verified 02/06/24 00:26 [IV CONTRAST] HEADED AND SHORTNESS OF BREATH Review of Systems 2 Review of Systems: Yes all other systems are reviewed and are negative REPLACED BY [facility] Past Medical History Medical History Nocturnal hypoxia CHF (congestive heart failure) Chronic lung disease COPD with acute exacerbation Chronic lung disease Chronic lung disease Tubular adenoma of colon (~2005) COPD (chronic obstructive pulmonary disease) Pulmonary nodules RAYMOND on CPAP Chronic rhinitis Asthma-COPD overlap syndrome PAF (paroxysmal atrial fibrillation) (~2017) Echocardiogram abnormal Encounter for screening for lung cancer Edema leg Venous insufficiency of both lower extremities AC (acromioclavicular) joint arthritis BPH (benign prostatic hyperplasia) Seasonal allergies Hyperlipidemia Surgical History History of appendectomy History of esophagogastroduodenoscopy (EGD) History of total left hip replacement (~2019) History of repair of right rotator cuff (~2017) History of nasal septoplasty (~2008) History of colonoscopy History of cataract (~2009) Family History Family History Father No problems noted. Mother CAD (coronary artery disease) CHF (congestive heart failure) HTN (hypertension) Brother No problems noted. Brother No problems noted. Sister No problems noted. Sister No problems noted. Sister Mental health disorder Son No problems noted. Son No problems noted. Social History Social History Household Members: Spouse, Family and Children Housing: House Do you presently have visiting nurse or other home services: No Alcohol intake: current Alcohol intake frequency: holidays/special occasions only Patient Tobacco Use Status: Former Tobacco user Tobacco use type: Cigarette Years Smoked: 40 years Smoked in Last 30 Days: No e-Cigarette/Vaping Use: Former Use Second Hand Smoke Exposure: No Use of substances other than those prescribed or required for medical reasons: No Advance Directives: Yes Advance Directives on File: Yes Advance Directives Date on File: 10/10/22 Do you have a plan to hurt others: No Plan service: Yes Current occupational status: retired Cognitive needs: No Hearing needs: No Vision needs: No Physical Exam 2 Vital Signs: Vital Signs: Last Vital Signs Temp 98.6 F 02/06/24 05:23 Pulse 72 02/06/24 05:23 Resp 18 02/06/24 05:23 BP 126/52 L 02/06/24 05:23 Pulse Ox 98 02/06/24 05:23 O2 Del Method Nasal Cannula 02/06/24 05:23 Oxygen Flow Rate 2 02/06/24 00:25 BMI result Body Mass Index 31.9 Appearance: Alert. Oriented X3. No acute distress. Eyes: No pallor or icterus ENT: Pharynx normal. Oral Mucosa moist Neck: Normal inspection. Neck supple. CVS: Normal heart rate and rhythm. Pulses normal. Respiratory: No respiratory distress. Equal air entry bilateral, no wheezing/rales/rhonchi prolonged expiration Abdomen: Soft and nontender. Bowel sounds are present, no mass palpable, no CVA tenderness Skin: Skin warm and dry. Normal skin color. Normal skin turgor. Extremities: No lower extremity edema. No calf tenderness Neuro: Oriented X 3. No motor deficit. Medications Administered Discontinued Medications Generic Name Dose Route Start Last Admin Trade Name Freq PRN Reason Stop Dose Admin Albuterol Sulfate 2.5 mg/ 0 mg 02/06/24 04:29 02/06/24 04:53 Albuterol/Ipratropium 3 ml INHALE 02/06/24 04:30 5 dose ONCE ONE Administration Medical Decision Making Medical Decision Making [facility] Narrative: Patient with incidental low blood pressure at home but on arrival blood pressure was normal workup otherwise negative given nebulizing treatment for COPD saturating 98 on 2 L discharge patient Differential Diagnosis Differential Diagnoses: The differential diagnosis associated with the presentation includes Lab Data [facility] Lab Attestation statement: I reviewed the patient's lab results. 02/06/24 01:34 02/06/24 01:34 Labs: Lab Results 02/06/24 Range/Units 01:34 WBC 8.5 (4.8-10.8) X10*3/uL RBC 4.11 L (4.60-5.80) X10*6/uL Hgb 12.0 L (14.0-18.0) g/dl Hct 36.1 L (42.0-52.0) % MCV 87.8 (80.0-98.0) fL MCH 29.2 (27.0-33.0) pg MCHC 33.2 (31.0-36.0) g/dl RDW 13.2 (11.0-16.0) % Plt Count 313 (160-400) X10*3/uL MPV 10.5 (9.4-12.4) fL Immature Gran % (Auto) 0.6 H (0.0-0.4) % Neut % (Auto) 66.5 (45-73) % Lymph % (Auto) 19.5 L (20-40) % Brewster % (Auto) 11.2 H (2-11) % Eos % (Auto) 1.5 (0-4) % Baso % (Auto) 0.7 (0-2) % Lymph # (Auto) 1.7 (1.2-4.9) X10*3/uL Brewster # (Auto) 1.0 (0.1-1.2) X10*3/uL Eos # (Auto) 0.1 (0.0-0.4) X10*3/uL Baso # (Auto) 0.1 (0.0-0.2) X10*3/uL Abs Immat Gran (auto) 0.05 H (0.00-0.03) X10*3/uL Absolute Neuts (auto) 5.6 (2.0-8.3) x10*3/uL Absolute Nucleated RBC 0.000 (0.0-0.012) X10*3/uL Nucleated RBC % (auto) 0.0 (0.0-0.2) /100WBC Sodium 140 (135-145) mmol/L Potassium 4.7 (3.3-5.1) mmol/L Chloride 112 H (96-108) mmol/L Carbon Dioxide 22 (22-29) mmol/L Anion Gap 11 L (12-20) BUN 40 H (9-16) mg/dL Creatinine 3.35 H (0.5-1.4) mg/dL Estim Creat Clear Calc 24.3 Estimated GFR 18 Random Glucose 104 (60-115) mg/dL Calcium 9.1 D (8.4-10.2) mg/dL Total Bilirubin 0.4 (0.0-1.0) mg/dL AST 15 (5-37) U/L ALT 16 (0-40) U/L Alkaline Phosphatase 84 (39-117) U/L Total Protein 6.4 L (6.5-8.0) g/dL Albumin 3.4 L (3.5-5.0) g/dL Independent Interpretation I performed an independent interpretation of an: EKG Interpretation: Normal sinus rhythm heart rate 68 what beats per minute first-degree heart block no arrhythmias no acute STT wave changes no acute ischemia Discharge Plan Discharge Clinical Impression: Transient hypotension COPD (chronic obstructive pulmonary disease) Qualifiers: COPD type: chronic bronchitis Chronic bronchitis type: mucopurulent Qualified Code(s): J41.1 - Mucopurulent chronic bronchitis Patient Disposition: Home, Self-Care Instructions: COPD (Chronic Obstructive Pulmonary Disease) (ED) Additional Instructions: Continued oxygen and nebulizer treatment at home blood pressure improved now Prescriptions: No Action Multaq 400 mg tablet 400 mg PO BID 90 Days Qty: 180 3RF Rx Instructions: must administer with a meal/food Eliquis 5 mg tablet 5 mg PO BID Qty: 180 3RF budesonide 0.5 mg/2 mL suspension for nebulization 0.5 mg inhalation BID Qty: 360 3RF tamsulosin [Flomax] 0.4 mg capsule 0.4 mg PO BID 90 Days Qty: 180 3RF montelukast 10 mg tablet 10 mg PO DAILY Qty: 90 3RF roflumilast 500 mcg tablet 500 mcg PO DAILY Qty: 90 3RF bupropion HCl 75 mg tablet 150 mg PO BID 90 Days Qty: 360 3RF Tezspire 210 mg/1.91 mL (110 mg/mL) Pen Injector 210 mg SUBCUT Q4W guaifenesin [Mucinex] 600 mg Tablet Extended Release 12hr 600 mg PO BID Qty: 20 0RF furosemide 40 mg tablet 40 mg PO DAILY Qty: 90 0RF furosemide [Lasix] 20 mg tablet 20 mg PO DAILY@1700 Qty: 60 1RF atorvastatin 80 mg tablet 80 mg PO DAILY Qty: 90 3RF (DME) nebulizers Misc See Rx Instructions .Route Rx Instructions: As directed (DME) CPAP Machine/Device Device See Rx Instructions .Route Rx Instructions: As directed arformoterol [Brovana] 15 mcg/2 mL solution for nebulization 15 mcg inhalation BID Qty: 360 3RF levalbuterol HCl 1.25 mg/3 mL solution for nebulization 1.25 mg inhalation BID 90 Days Qty: 540 3RF (DME) Oxygen Home Use Kit See Rx Instructions .ROUTE Rx Instructions: As directed albuterol sulfate 90 mcg/actuation HFA aerosol inhaler 2 puff inhalation QID PRN (Reason: Shortness Of Breath) Qty: 8.5 11RF benzonatate 100 mg capsule 100 mg PO BID-TID PRN metoprolol succinate 100 mg tablet extended release 24 hr 100 mg PO DAILY metolazone 2.5 mg tablet 2.5 mg PO Q OTHER DAY Qty: 10 0RF doxycycline hyclate 100 mg capsule 100 mg PO BID Qty: 14 0RF losartan 25 mg tablet 25 mg PO DAILY 30 Days Qty: 30 1RF (DME) blood pressure monitor Kit See Rx Instructions .ROUTE .MEDSUPPLY Qty: 1 0RF Rx Instructions: Automatic, Digital. Dx: I10. Daily As directed, 999 days/lifetime Interventions: ED Discharge Assessment Last Done: 02/06/24 05:23 Discharge Date/Time: 02/06/24 05:26 Print Language: Spanish
[2024-02-06 04:43] VITALS: BP 117/46; BP 127/56; PULSE 66; PULSE 71
[2024-02-06 04:44] VITALS: BP 126/52; PULSE 72
[2024-02-06] MEDS: Albuterol Sulfate 2.5 MG, Albuterol/Iprat 2.5/0.5MG 3 ML 3 ML INHALE (04:53)
[2024-02-06 04:56] VITALS: PULSE 64; RESP 18; O2SAT 97
--- NOTE | 2024-02-06 04:57 | PC.NURSE ---
RT with pt Plan of care ongoing.
[2024-02-06 05:23] VITALS: BP 126/52; PULSE 72; RESP 18; TEMP 37; O2SAT 98
== END 2024-02-06 05:26 | disposition home or self-care (01) ==
PROVIDERS: Emergency Provider Internal Medicine; PCP Family Medicine
DX: I95.9 Hypotension, unspecified (principal); J41.1 Mucopurulent chronic bronchitis; E78.5 Hyperlipidemia, unspecified; I48.0 Paroxysmal atrial fibrillation; Z99.81 Dependence on supplemental oxygen; Z79.01 Long term (current) use of anticoagulants; Z79.899 Other long term (current) drug therapy
CPT/HCPCS: 36415; 80053; 85025; 93005; 94640; 99284; 99285

== ENCOUNTER 2024-02-14 06:33 | Outpatient (REF) | payer MEDICARE, OTHER, SELFPAY ==
[2024-02-14 10:26] LABS: Anion Gap 13 (12-20); Blood Urea Nitrogen 44 mg/dL (9-16); Calcium 9.5 mg/dL (8.4-10.2); Carbon Dioxide 25 mmol/L (22-29); Chloride 106 mmol/L (96-108); Estimated Glomerular Filt Rate 35; Glucose Random 91 mg/dL (60-115); Sodium 140 mmol/L (135-145)
== END 2024-02-14 06:34 | disposition home or self-care (01) ==
LOC: HO.HMGCLDS 06:33
PROVIDERS: PCP Family Medicine; Referring Provider Internal Medicine Hypertension Specialist; Visit Provider Family Medicine
DX: Z00.00 Encounter for general adult medical examination without abnormal findings (principal); N19 Unspecified kidney failure
CPT/HCPCS: 36415; 80048

== ENCOUNTER 2024-02-18 10:29 | Outpatient (AMB) | payer MEDICARE, OTHER, SELFPAY ==
--- NOTE | 2024-02-18 10:29 | HO.NEPHOV ---
Vital Signs 02/18/24 10:30 Height 5 ft 9 in Weight 218 lb BMI 32.2 BP 138/54 L Blood Pressure Location Lt brachial Position Sitting Pulse 90 Pulse Source Pulse Oximeter Pulse Oximetry (%) 94 Oxygen Delivery Method Room Air Intake Visit Reasons: Edema/ Conf Packer And Carry Out Required: No Accompanied by: Self / Same As Patient Allergies watermelon [WATERMELON] Allergy (Severe, Verified 02/18/24 10:31) ANAPHYLAXIS Iodinated Contrast Media [IV CONTRAST] Allergy (Intermediate, Verified 02/18/24 10:31) LIGHT HEADED AND SHORTNESS OF BREATH Medication List - Last Reconciled 02/18/24 by Jd Yates MD albuterol sulfate 90 mcg/actuation 2 puffs inhalation QID PRN apixaban (Eliquis) 5 mg PO BID arformoterol (Brovana) 15 mcg (2 mL) inhalation BID atorvastatin 80 mg PO DAILY benzonatate 100 mg PO BID-TID PRN blood pressure monitor Automatic, Digital. Dx: I10. Daily As directed, 999 days/lifetime budesonide 0.5 mg (2 mL) inhalation BID bupropion HCl 150 mg (2 x 75 mg) PO BID 90 days CPAP (CPAP Machine/Device) As directed doxycycline hyclate 100 mg PO BID dronedarone (Multaq) 400 mg PO BID 90 days furosemide 40 mg PO DAILY furosemide (Lasix) 20 mg PO DAILY@1700 guaifenesin ER (Mucinex) 600 mg PO BID levalbuterol HCl 1.25 mg (3 mL) inhalation BID 90 days metolazone 2.5 mg PO Q OTHER DAY metoprolol succinate ER 100 mg PO DAILY montelukast 10 mg PO DAILY nebulizers As directed Oxygen Home Use As directed roflumilast 500 mcg PO DAILY tamsulosin (Flomax) 0.4 mg PO BID 90 days tezepelumab-ekko (Tezspire) 210 mg subcut Q4W HPI Comments Details: . Kiran is a pleasant 68-year-old man with a history of hypertension COPD with peripheral vascular disease. He has had significantly leg edema. He was on amlodipine which has been discontinued recently. He is on Lasix 20 mg a day. He has underlying CKD with a serum creatinine of around 1.2-1.3 at baseline. Recently there has been a bump in serum creatinine up to 1.6. He was on lisinopril 20 mg a day which has been discontinued few months ago. The diuretics are being adjusted based on the creatinine but he continues to have leg edema and hence this referral. He is history of COPD and obstructive sleep apnea. Was recently hospitalized for exacerbation of COPD. He is currently on prednisone. He had an echocardiogram which did not reveal any significant right sided heart failure. He has a significant history of smoking for almost 40 years 1-2 packs per day he quit smoking about 15 years ago. Review of system was positive for significantly leg edema. He had increased urinary frequency which has resolved. No nausea vomiting no chest pain no palpitations no fever no rash 10/28/2023. He admits taking Bumex for for a week. He took it for few days. Repeat serum creatinine was 1.62. No increase in BUN. He continues her leg edema. Urine did not reveal any significant proteinuria 11/26/2023. He was on Bumex 0.5 mg once a day. However he felt that the leg edema was worsening. He went to the ER and he had more swelling. Bumex was increased to 1 mg a day. However is still believes that the edema gets worse with a high dose of Bumex. He has significant redness in his legs which is pain Doppler did not reveal any DVTs 12/12/2023. After course of antibiotics the erythema has improved. He is still has edema. He is tolerating Lasix well. He is on a course of prednisone prescribed by best worker. 01/14/24 Recently in [facility] for pneumonia;Treated with antibiotics LEgs with edema Erythema improved with antibiotics 02/03/2024 Continues have leg edema. He was recently in urgent care. No changes were made to diuretics. 02/18/2024. After addition of metolazone he has lost about 12 lb. He did go to the ER with low blood pressure. No changes were made at the time. [facility] Medical History Nocturnal hypoxia CHF (congestive heart failure) Chronic lung disease COPD with acute exacerbation Chronic lung disease Chronic lung disease Tubular adenoma of colon (~2005) COPD (chronic obstructive pulmonary disease) Pulmonary nodules RAYMOND on CPAP Chronic rhinitis Asthma-COPD overlap syndrome PAF (paroxysmal atrial fibrillation) (~2017) Echocardiogram abnormal Encounter for screening for lung cancer Edema leg Venous insufficiency of both lower extremities AC (acromioclavicular) joint arthritis BPH (benign prostatic hyperplasia) Seasonal allergies Hyperlipidemia Surgical History History of appendectomy History of esophagogastroduodenoscopy (EGD) History of total left hip replacement (~2019) History of repair of right rotator cuff (~2017) History of nasal septoplasty (~2008) History of colonoscopy History of cataract (~2009) Family History Father No problems noted. Mother CAD (coronary artery disease) CHF (congestive heart failure) HTN (hypertension) Brother No problems noted. Brother No problems noted. Sister No problems noted. Sister No problems noted. Sister Mental health disorder Son No problems noted. Son No problems noted. Social History Household Members: Spouse, Family and Children Housing: House Do you presently have visiting nurse or other home services: No Alcohol intake: current Alcohol intake frequency: holidays/special occasions only Patient Tobacco Use Status: Former Tobacco user Tobacco use type: Cigarette Years Smoked: 40 years e-Cigarette/Vaping Use: Former Use Second Hand Smoke Exposure: No Advance Directives Date on File: 10/10/22 service: Yes Current occupational status: retired Cognitive needs: No Hearing needs: No Vision needs: No Physical Exam Vital Signs: Last Vital Signs Pulse 90 02/18/24 10:30 BP 138/54 L 02/18/24 10:30 Pulse Ox 94 02/18/24 10:30 Oxygen Delivery Method Room Air 02/18/24 10:30 BMI result Body Mass Index 32.2 Const General: comfortable; No acute distress Orientation/consciousness: patient oriented x3 Eyes General: appearance normal, both eyes and all related structures Visual Esp[place]: normal visual españa by confrontation Neck Neck: Yes supple and Yes no JVD Resp Effort & Inspection: normal respiratory effort and respiratory effort not decreased Auscultation: rhonchi Cardio Palpation: no palpable S3 and no palpable S4 Heart sounds: no rubs GI Inspection: Yes normal to inspection Palpation (GI): Soft to palpation Percussion: Yes normal to percussion Auscultation: normal bowel sounds General: No CVA tenderness Back/Spine/Pelvis Back: No CVA tenderness Skin General skin exam: no petechiae and no purpura Neuro General: patient oriented x3 and no focal motor deficits Extrem Other: Erythema in both lower extremities with tenderness General: No clubbing and Yes edema (Improved but still with the erythema, not warm or tender) Results Reviewed Nephrology Results: Hgb 12.0 g/dl (14.0-18.0) L 02/06/24 WBC 8.5 X10*3/uL (4.8-10.8) 02/06/24 Plt Count 313 X10*3/uL (160-400) 02/06/24 Sodium 140 mmol/L (135-145) 02/14/24 Potassium 4.0 mmol/L (3.3-5.1) 02/14/24 Chloride 106 mmol/L (96-108) 02/14/24 Carbon Dioxide 25 mmol/L (22-29) 02/14/24 BUN 44 mg/dL (9-16) H 02/14/24 Creatinine 1.90 mg/dL (0.5-1.4) H 02/14/24 Calcium 9.5 mg/dL (8.4-10.2) 02/14/24 Assessment & Plan Assessment & Plan (1) Edema leg: Comment: chronic from venous insufficiency Code(s): R60.0 - Localized edema Category: Medical (2) CKD (chronic kidney disease): Code(s): N18.9 - Chronic kidney disease, unspecified Category: Medical Qualifiers: Chronic kidney disease stage: unspecified stage Qualified Code(s): N18.9 - Chronic kidney disease, unspecified (3) Edema: Code(s): R60.9 - Edema, unspecified Category: Medical (4) Carotid stenosis, bilateral: Code(s): I65.23 - Occlusion and stenosis of bilateral carotid arteries Category: Medical (5) Hypertension: Code(s): I10 - Essential (primary) hypertension Category: Medical Qualifiers: Hypertension type: primary hypertension Qualified Code(s): I10 - Essential (primary) hypertension Plan . 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 Superimposed CHATO due to hypoperfusion in the setting of LATONIA inhibitors and diuretics. Creatinine is improved and down to 1.9 from 3.3 with cautious diuresis Renal ultrasonogram was unremarkable No significant proteinuria serum immunofixation shows IgG kappa monoclonal protein Urinary sediments are bland therefore glomerular/ interstitial disease seem unlikely Echocardiogram revealed normal right ventricular pressures without evidence of right heart failure Serum albumin was relatively low at 3.1. Mild elevation in alkaline phosphatase and ALT; repeat LFTs were normal Keep current dose of LAsix Decreased Zaroxolyn 2.5 mg 2 times a week Stay on low-sodium diet. Leg elevation No need for Doppler ultrasonogram at this time. Avoid calcium channel blockers like amlodipine Agree with holding LATONIA inhibitors until renal function stabilizes. . Orders: Orders Basic Metabolic Panel 6 Weeks N18.9 - Chronic kidney disease, unspecified Medications: Changed From metolazone 2.5 mg PO Q OTHER DAY 10 tabs 0RF To metolazone 2.5 mg PO .2 x week 10 tabs 1RF Coding Level of Care Code Est Pt Level 4 (76121) Diagnoses Edema leg R60.0 Chronic kidney disease, unspecified CKD stage N18.9 Chronic kidney disease stage: unspecified stage Edema R60.9 Carotid stenosis, bilateral I65.23 Primary hypertension I10 Hypertension type: primary hypertension
[2024-02-18 10:30] VITALS: BP 138/54; PULSE 90; O2SAT 94; BMI 32.2
== END 2024-02-18 10:50 | disposition home or self-care (01) ==
PROVIDERS: PCP Family Medicine; Visit Provider Internal Medicine Hypertension Specialist
DX: R60.0 Localized edema (principal); I12.9 Hypertensive chronic kidney disease with stage 1 through stage 4 chronic kidney disease, or unspecified chronic kidney disease; N18.9 Chronic kidney disease, unspecified; I65.23 Occlusion and stenosis of bilateral carotid arteries
CPT/HCPCS: 99214

== ENCOUNTER → 2024-02-18 10:29 | Outpatient (BNVA) | payer MEDICARE, OTHER, SELFPAY | PROVIDERS: PCP Family Medicine; Visit Provider Internal Medicine Hypertension Specialist | DX: I12.9 Hypertensive chronic kidney disease with stage 1 through stage 4 chronic kidney disease, or unspecified chronic kidney disease (principal); N18.9 Chronic kidney disease, unspecified; R60.9 Edema, unspecified; J44.9 Chronic obstructive pulmonary disease, unspecified; I73.9 Peripheral vascular disease, unspecified; I65.23 Occlusion and stenosis of bilateral carotid arteries; G47.33 Obstructive sleep apnea (adult) (pediatric) | CPT/HCPCS: 99212 ==

== ENCOUNTER 2024-02-21 11:02 | Outpatient (AMB) | payer MEDICARE, OTHER, SELFPAY ==
--- NOTE | 2024-02-21 11:27 | A.OFFPC_ITS ---
Vital Signs 02/21/24 11:33 02/21/24 11:37 Height 5 ft 9 in Weight 214 lb 8 oz BMI 31.7 BP 100/38 L 130/80 Blood Pressure Location Lt brachial Position Sitting Respiration 16 Pulse 75 Pulse Source Pulse Oximeter Temp 98.4 F Temp Source Temporal Artery Scan Pulse Oximetry (%) 96 Oxygen Delivery Method Room Air Intake Visit Reasons: f/u abnormal breath sounds, hypertension Intake Note: f/u with abnormal breath ,htn Allergies watermelon [WATERMELON] Allergy (Severe, Verified 02/21/24 11:29) ANAPHYLAXIS Iodinated Contrast Media [IV CONTRAST] Allergy (Intermediate, Verified 02/21/24 11:29) LIGHT HEADED AND SHORTNESS OF BREATH Medication List - Last Reconciled 02/21/24 by Guilherme Mcallister MD albuterol sulfate 90 mcg/actuation 2 puffs inhalation QID PRN apixaban (Eliquis) 5 mg PO BID arformoterol (Brovana) 15 mcg (2 mL) inhalation BID atorvastatin 80 mg PO DAILY benzonatate 100 mg PO BID-TID PRN blood pressure monitor Automatic, Digital. Dx: I10. Daily As directed, 999 days/lifetime budesonide 0.5 mg (2 mL) inhalation BID bupropion HCl 150 mg (2 x 75 mg) PO BID 90 days CPAP (CPAP Machine/Device) As directed doxycycline hyclate 100 mg PO BID dronedarone (Multaq) 400 mg PO BID 90 days furosemide 40 mg PO DAILY furosemide (Lasix) 20 mg PO DAILY@1700 guaifenesin ER (Mucinex) 600 mg PO BID levalbuterol HCl 1.25 mg (3 mL) inhalation BID 90 days losartan 25 mg PO DAILY metolazone 2.5 mg PO .2 x week montelukast 10 mg PO DAILY nebulizers As directed Oxygen Home Use As directed roflumilast 500 mcg PO DAILY tamsulosin (Flomax) 0.4 mg PO BID 90 days tezepelumab-ekko (Tezspire) 210 mg subcut Q4W Tobacco use date assessed: 09/26/23 Dental Screening Dental Screen Date: 09/26/23 HPI f/u abnormal breath sounds, hypertension HPI Details 68 y/o male presents to f/u hypertension , COPD. Blood pressure today 130/50, 75p. He is on losartan 25mg daily. No longer taking metoprolol and lisinopril. Pt notes he has a blood pressure cuff at home. Blood pressure seems to fluctuate per pt. Has an appt. with pulmonology March. [facility] Medical History Nocturnal hypoxia CHF (congestive heart failure) Chronic lung disease COPD with acute exacerbation Chronic lung disease Chronic lung disease Tubular adenoma of colon (~2005) COPD (chronic obstructive pulmonary disease) Pulmonary nodules RAYMOND on CPAP Chronic rhinitis Asthma-COPD overlap syndrome PAF (paroxysmal atrial fibrillation) (~2017) Echocardiogram abnormal Encounter for screening for lung cancer Edema leg Venous insufficiency of both lower extremities AC (acromioclavicular) joint arthritis BPH (benign prostatic hyperplasia) Seasonal allergies Hyperlipidemia Surgical History History of appendectomy History of esophagogastroduodenoscopy (EGD) History of total left hip replacement (~2019) History of repair of right rotator cuff (~2017) History of nasal septoplasty (~2008) History of colonoscopy History of cataract (~2009) Family History Father No problems noted. Mother CAD (coronary artery disease) CHF (congestive heart failure) HTN (hypertension) Brother No problems noted. Brother No problems noted. Sister No problems noted. Sister No problems noted. Sister Mental health disorder Son No problems noted. Son No problems noted. Social History Household Members: Spouse, Family and Children Housing: House Do you presently have visiting nurse or other home services: No Alcohol intake: current Alcohol intake frequency: holidays/special occasions only Patient Tobacco Use Status: Former Tobacco user Tobacco use type: Cigarette Years Smoked: 40 years e-Cigarette/Vaping Use: Former Use Second Hand Smoke Exposure: No Advance Directives Date on File: 10/10/22 service: Yes Current occupational status: retired Cognitive needs: No Hearing needs: No Vision needs: No Questionnaire Thrive Questionnaire Date Thrive assessed: 12/28/23 STEVEN-7 AMB Questionnaire STEVEN-7 Date STEVEN - 7 assessed: 06/27/23 Source: Developed by Drs. Kwame William, Cayla Candelario, Damian Lee and colleagues, with an educational maria g from [employer]. Physical exam (Primary Care) Vital Signs: Last Vital Signs Temp 98.4 F 02/21/24 11:33 Pulse 75 02/21/24 11:33 Resp 16 02/21/24 11:33 BP 106/49 L 02/21/24 11:37 Pulse Ox 96 02/21/24 11:33 Oxygen Delivery Method Room Air 02/21/24 11:33 BMI result Body Mass Index 31.7 Tobacco/Smoking Status: Tobacco use Status Tobacco use date assessed 09/26/23 02/21/24 11:29 Patient Tobacco Use Status Former Tobacco user 02/21/24 11:29 Tobacco use type Cigarette 02/21/24 11:29 e-Cigarette/Vaping Use Former Use 02/21/24 11:29 Thrive Assessment: Date of Thrive Assessment Date Thrive assessed 12/28/23 02/21/24 11:29 Coding Level of Care Code Est Pt Level 3 (59798) Diagnoses Primary hypertension I10 Hypertension type: primary hypertension Asthma-COPD overlap syndrome J44.9 Assessment & Plan Assessment & Plan (1) Hypertension: Code(s): I10 - Essential (primary) hypertension Category: Medical Qualifiers: Hypertension type: primary hypertension Qualified Code(s): I10 - Essential (primary) hypertension Plan: Patient?had?had?issues?with?hypotension?and?was?on?metoprolol,?lisinopril?and?lo sartan. Now?just?on?losartan?25?mg?tablets; 1.5?tablets?daily. Blood?pressure?is?seem? to?fluctuate?at?home?but?in?office?they?have?been?pretty?consistently?around?130 /80 as?I?measured?today. Continue?current?medication. He?now?has?a?blood?pressure?monitor?at?home?and?advised?him?to?leeanna ck?it?a?few?times?a?day?but?if?significantly?off,?recheck?in?a?few?minutes. Patient?feels?well.??No?chest?pain?and?no?acute?shortness?of?breath;?he?is?at?ba gabino?with?his?COPD?SOB (2) Asthma-COPD overlap syndrome: Code(s): J44.9 - Chronic obstructive pulmonary disease, unspecified Category: Medical Plan: Lungs?are?clear?today Stable Follow-up?with??Sonido?as?recommended - he?has?an?appointment?with?him?in?March?to?follow-up?on?this? and?sleep?apnea?testing
[2024-02-21 11:33] VITALS: BP 100/38; PULSE 75; RESP 16; TEMP 36.9; O2SAT 96; BMI 31.7
[2024-02-21 11:37] VITALS: BP 130/80
== END 2024-02-21 12:19 | disposition home or self-care (01) ==
PROVIDERS: PCP Family Medicine; Visit Provider Family Medicine
DX: I10 Essential (primary) hypertension (principal); J44.9 Chronic obstructive pulmonary disease, unspecified

== ENCOUNTER → 2024-02-21 11:02 | Outpatient (BNVA) | payer MEDICARE, OTHER, SELFPAY | PROVIDERS: PCP Family Medicine; Visit Provider Family Medicine | DX: I10 Essential (primary) hypertension (principal); J44.9 Chronic obstructive pulmonary disease, unspecified | CPT/HCPCS: 99212 ==

== ENCOUNTER 2024-03-23 10:02 | Outpatient (REF) | payer MEDICARE, OTHER, SELFPAY ==
--- NOTE | ~2024-03-23 | US_ITS ---
EXAMINATION: US EXTRACRANIAL CAROTID DUPLEX, BILATERAL CLINICAL INFORMATION: Carotid stenosis. COMPARISON: 02/21/2023 TECHNIQUE: Real-time ultrasound and Doppler techniques (integrating B-mode 2-D vascular images, Doppler spectral analysis and color-flow Doppler imaging) were utilized to interrogate the extracranial carotid arteries, the vertebral arteries and proximal subclavian arteries bilaterally. The degree of stenosis is determined by criteria similar to NASCET. FINDINGS: RIGHT SIDE: 1. There is mild atherosclerotic plaque seen in the bifurcation/proximal ICA region. 2. The common carotid artery PSV proximally is 168 cm/s and distally 142 cm/s. 3. The proximal internal carotid artery velocities are 125 cm/s systolic and 117 cm/s diastolic. 4. The proximal external carotid artery PSV is 178 cm/s. 5. The vertebral artery shows antegrade flow. 6. The subclavian artery waveforms are normal. LEFT SIDE: 1. There is mild atherosclerotic plaque seen in the bifurcation/proximal ICA region. 2. The common carotid artery PSV proximally is 128 cm/s and distally 430 cm/s. Ratio is greater than 4:1 consistent with a common carotid artery stenosis. 3. The proximal internal carotid artery velocities are 123 cm/s systolic and 20 cm/s diastolic. 4. The proximal external carotid artery PSV is 207 cm/s. 5. The vertebral artery shows antegrade flow. 6. The subclavian artery waveforms are normal. US/US carotid duplex BI IMPRESSION: 1. RIGHT: Moderate, hemodynamically significant stenosis of the proximal right internal carotid artery corresponding to a 50-79% stenosis by velocity criteria. No change from prior. 2. LEFT: Minimal, non-hemodynamically significant stenosis of the proximal left internal carotid artery corresponding to a 0-49% stenosis by velocity criteria. No change from prior 3. Velocities in the distal left common carotid arteries have increased considerably from 225 to 430 suggesting a common carotid artery stenosis. Electronically signed by: Danny Mcdermott MD 03/31/2024 12:54 PM [facility]
== END 2024-03-23 10:03 | disposition home or self-care (01) ==
LOC: HO.US 10:02
PROVIDERS: PCP Family Medicine; Visit Provider Surgery Vascular Surgery
DX: I65.23 Occlusion and stenosis of bilateral carotid arteries (principal)
CPT/HCPCS: 93880

== ENCOUNTER 2024-03-27 11:22 | Outpatient (REF) | payer MEDICARE, OTHER, SELFPAY ==
[2024-03-27 13:45] LABS: Anion Gap 12 (12-20); Blood Urea Nitrogen 21 mg/dL (9-16); Calcium 9.2 mg/dL (8.4-10.2); Carbon Dioxide 28 mmol/L (22-29); Chloride 105 mmol/L (96-108); Estimated Glomerular Filt Rate 40; Glucose Random 97 mg/dL (60-115); Potassium 3.8 mmol/L (3.3-5.1); Sodium 141 mmol/L (135-145)
== END 2024-03-27 11:23 | disposition home or self-care (01) ==
LOC: HO.HMGCLDS 11:22
PROVIDERS: PCP Family Medicine; Visit Provider Internal Medicine Hypertension Specialist
DX: N18.9 Chronic kidney disease, unspecified (principal)
CPT/HCPCS: 36415; 80048

== ENCOUNTER 2024-03-31 09:43 | Outpatient (AMB) | payer MEDICARE, OTHER, SELFPAY ==
--- NOTE | 2024-03-31 10:05 | A.OFFPC_ITS ---
Vital Signs 03/31/24 10:09 Height 5 ft 9 in Weight 221 lb 6 oz BMI 32.7 BP 130/50 L Blood Pressure Location Lt brachial Position Sitting Respiration 18 Pulse 87 Pulse Source Pulse Oximeter Temp 98.2 F Temp Source Oral Pulse Oximetry (%) 96 Oxygen Delivery Method Room Air Intake Visit Reasons: f/u hypertension Intake Note: f/u HTN Allergies watermelon [WATERMELON] Allergy (Severe, Verified 03/31/24 10:07) ANAPHYLAXIS Iodinated Contrast Media [IV CONTRAST] Allergy (Intermediate, Verified 03/31/24 10:07) LIGHT HEADED AND SHORTNESS OF BREATH Medication List - Last Reconciled 03/31/24 by Guilherme Mcallister MD albuterol sulfate 90 mcg/actuation 2 puffs inhalation QID PRN apixaban (Eliquis) 5 mg PO BID arformoterol (Brovana) 15 mcg (2 mL) inhalation BID atorvastatin 80 mg PO DAILY benzonatate 100 mg PO BID-TID PRN blood pressure monitor Automatic, Digital. Dx: I10. Daily As directed, 999 days/lifetime budesonide 0.5 mg (2 mL) inhalation BID bupropion HCl 150 mg (2 x 75 mg) PO BID 90 days CPAP (CPAP Machine/Device) As directed dronedarone (Multaq) 400 mg PO BID 90 days furosemide 40 mg PO DAILY furosemide (Lasix) 20 mg PO DAILY@1700 guaifenesin ER (Mucinex) 600 mg PO BID levalbuterol HCl 1.25 mg (3 mL) inhalation BID 90 days losartan 25 mg PO DAILY metolazone 2.5 mg PO .2 x week montelukast 10 mg PO DAILY nebulizers As directed Oxygen Home Use As directed roflumilast 500 mcg PO DAILY tamsulosin (Flomax) 0.4 mg PO BID 90 days tezepelumab-ekko (Tezspire) 210 mg subcut Q4W Tobacco use date assessed: 09/26/23 Dental Screening Dental Screen Date: 09/26/23 HPI f/u hypertension HPI Details 68 y/o male presents to f/u hypertension . Blood pressure today 130/50, 87p. He is on losartan 25mg. Notes blood pressure in the 150s systolic at home. [facility] Medical History Nocturnal hypoxia CHF (congestive heart failure) Chronic lung disease COPD with acute exacerbation Chronic lung disease Chronic lung disease Tubular adenoma of colon (~2005) COPD (chronic obstructive pulmonary disease) Pulmonary nodules RAYMOND on CPAP Chronic rhinitis Asthma-COPD overlap syndrome PAF (paroxysmal atrial fibrillation) (~2017) Echocardiogram abnormal Encounter for screening for lung cancer Edema leg Venous insufficiency of both lower extremities AC (acromioclavicular) joint arthritis BPH (benign prostatic hyperplasia) Seasonal allergies Hyperlipidemia Surgical History History of appendectomy History of esophagogastroduodenoscopy (EGD) History of total left hip replacement (~2019) History of repair of right rotator cuff (~2017) History of nasal septoplasty (~2008) History of colonoscopy History of cataract (~2009) Family History Father No problems noted. Mother CAD (coronary artery disease) CHF (congestive heart failure) HTN (hypertension) Brother No problems noted. Brother No problems noted. Sister No problems noted. Sister No problems noted. Sister Mental health disorder Son No problems noted. Son No problems noted. Social History Household Members: Spouse, Family and Children Housing: House Do you presently have visiting nurse or other home services: No Alcohol intake: current Alcohol intake frequency: holidays/special occasions only Patient Tobacco Use Status: Former Tobacco user Tobacco use type: Cigarette Years Smoked: 40 years e-Cigarette/Vaping Use: Former Use Second Hand Smoke Exposure: No Advance Directives Date on File: 10/10/22 service: Yes Current occupational status: retired Cognitive needs: No Hearing needs: No Vision needs: No Questionnaire PHQ-9 Over the last 2 weeks, how often have you been bothered by any of the following problems? 1. Little interest or pleasure in doing things: not at all 2. Feeling down, depressed, or hopeless: not at all 3. Trouble falling or staying asleep, or sleeping too much: several days 4. Feeling tired or having little energy: several days 5. Poor appetite or overeating: not at all 6. Feeling bad about yourself - or that you are a failure or have let yourself or your family down: not at all 7. Trouble concentrating on things, such as reading the newspaper or watching television: not at all 8. Moving or speaking so slowly that other people could have noticed. Or the opposite - being so fidgety or restless that you have been moving around a lot more than usual: not at all 9. Thoughts that you would be better off or of hurting yourself in some way: not at all Total score: 2 Source: Developed by Drs. Kwame William, Cayla Candelario, Damian Lee and colleagues, with an educational maria g from [employer]. Thrive Questionnaire Date Thrive assessed: 12/28/23 I am a: Patient What is your living situation today?: I have a steady place to live Within the past 12 months, did the food you bought not last and you didn't have the money to get more?: Never true Within the past 12 months, did you worry whether your food would run out before you got money to buy more?: Never true Do you have trouble paying for medicines?: No Do you have trouble getting transportation to medical appointments?: I choose not to answer this question Do you have trouble paying your heating and electricity bill?: I choose not to answer this question Do you have trouble taking care of your child, family member or friend?: I choose not to answer this question Do you have trouble with day-to-day activities such as bathing, preparing meals, shopping, managing finances, etc.?: I choose not to answer this question Are you currently unemployed and looking for a job?: I choose not to answer this question Are you interested in more education?: I choose not to answer this question Please select the resources that you would like help with: None Currently or been in a relationship where the following occur: No concerns reported THRIVE Score: 0 AUDIT C Alcohol Use Questionnaire (AUDIT-C) 1. How often do you have a drink containing alcohol?: 2-4 times a month 2. How many drinks containing alcohol do you have on a typical day when you are drinking?: 5 or 6 3. How often do you have six or more drinks on one occasion?: Monthly Total Score: 6 STEVEN-7 AMB Questionnaire STEVEN-7 Date STEVEN - 7 assessed: 06/27/23 Feeling nervous, anxious, or on edge: 0 = Not at all Not being able to stop or control worryin = Not at all Worrying too much about different things: 0 = Not at all Trouble relaxin = Not at all Being so restless that it is hard to sit still: 0 = Not at all Becoming easily annoyed or irritable: 0 = Not at all Feeling afraid as if something awful might happen: 0 = Not at all Total STEVEN-7 score (0-4 normal; 5-9 mild; 10-14 moderate; 15-21 severe): 0 Source: Developed by Drs. Kwame William, Cayla Candelario, Damian Lee and colleagues, with an educational maria g from [employer]. Physical exam (Primary Care) Vital Signs: Last Vital Signs Temp 98.2 F 03/31/24 10:09 Pulse 87 03/31/24 10:09 Resp 18 03/31/24 10:09 BP 130/50 L 03/31/24 10:09 Pulse Ox 96 03/31/24 10:09 Oxygen Delivery Method Room Air 03/31/24 10:09 BMI result Body Mass Index 32.7 Tobacco/Smoking Status: Tobacco use Status Tobacco use date assessed 09/26/23 03/31/24 10:12 Patient Tobacco Use Status Former Tobacco user 03/31/24 10:12 Tobacco use type Cigarette 03/31/24 10:12 e-Cigarette/Vaping Use Former Use 03/31/24 10:12 PHQ-9: PHQ-9 Score PHQ-9: Total score 2 03/31/24 10:31 Thrive Assessment: Date of Thrive Assessment Date Thrive assessed 12/28/23 03/31/24 10:12 Currently or been in a relationship where the following occur: No concerns reported Coding Level of Care Code Est Pt Level 3 (36477) Diagnoses Primary hypertension I10 Hypertension type: primary hypertension Assessment & Plan Assessment & Plan (1) Hypertension: Code(s): I10 - Essential (primary) hypertension Category: Medical Qualifiers: Hypertension type: primary hypertension Qualified Code(s): I10 - Essential (primary) hypertension Plan: Patient?notes?that?systolic?b lood?pressures?have?been?up?into?the?150s?on?his?current?regimen?of?losartan?25? mg?tablets;?1.5?tablets?daily. Will?add?amlodipine?and?continue?losartan Close?follow-up?in?a?month Medications: New amlodipine 5 mg PO DAILY 90 days 90 tabs 2RF Changed From losartan 25 mg PO DAILY To losartan 37.5 mg PO DAILY
[2024-03-31 10:09] VITALS: BP 130/50; PULSE 87; RESP 18; TEMP 36.8; O2SAT 96; BMI 32.7
== END 2024-03-31 10:35 | disposition home or self-care (01) ==
PROVIDERS: PCP Family Medicine; Visit Provider Family Medicine
DX: I10 Essential (primary) hypertension (principal)

== ENCOUNTER → 2024-03-31 09:43 | Outpatient (BNVA) | payer MEDICARE, OTHER, SELFPAY | PROVIDERS: PCP Family Medicine; Visit Provider Family Medicine | DX: R60.0 Localized edema (principal); I12.9 Hypertensive chronic kidney disease with stage 1 through stage 4 chronic kidney disease, or unspecified chronic kidney disease; N18.9 Chronic kidney disease, unspecified; I65.23 Occlusion and stenosis of bilateral carotid arteries; I10 Essential (primary) hypertension | CPT/HCPCS: 96127; 99212 ==

== ENCOUNTER 2024-03-31 11:01 | Outpatient (AMB) | payer MEDICARE, OTHER, SELFPAY ==
--- NOTE | 2024-03-31 11:17 | HO.NEPHOV_ITS ---
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 Defense Officer Required: No Accompanied by: Self / Same As Patient Allergies watermelon [WATERMELON] Allergy (Severe, Verified 03/31/24 11:20) ANAPHYLAXIS Iodinated Contrast Media [IV CONTRAST] Allergy (Intermediate, Verified 03/31/24 11:20) LIGHT HEADED AND SHORTNESS OF BREATH Medication List - Last Reconciled 03/31/24 by Jd Yates MD albuterol sulfate 90 mcg/actuation 2 puffs inhalation QID PRN amlodipine 5 mg PO DAILY 90 days apixaban (Eliquis) 5 mg PO BID arformoterol (Brovana) 15 mcg (2 mL) inhalation BID atorvastatin 80 mg PO DAILY benzonatate 100 mg PO BID-TID PRN blood pressure monitor Automatic, Digital. Dx: I10. Daily As directed, 999 days/lifetime budesonide 0.5 mg (2 mL) inhalation BID bupropion HCl 150 mg (2 x 75 mg) PO BID 90 days CPAP (CPAP Machine/Device) As directed dronedarone (Multaq) 400 mg PO BID 90 days furosemide 40 mg PO DAILY furosemide (Lasix) 20 mg PO DAILY@1700 guaifenesin ER (Mucinex) 600 mg PO BID levalbuterol HCl 1.25 mg (3 mL) inhalation BID 90 days losartan 37.5 mg (1.5 x 25 mg) PO DAILY 90 days metolazone 2.5 mg PO .2 x week montelukast 10 mg PO DAILY nebulizers As directed Oxygen Home Use As directed roflumilast 500 mcg PO DAILY tamsulosin (Flomax) 0.4 mg PO BID 90 days tezepelumab-ekko (Tezspire) 210 mg subcut Q4W HPI Comments Details: . Kiran is a pleasant 68-year-old man with a history of hypertension COPD with peripheral vascular disease. He has had significantly leg edema. He was on amlodipine which has been discontinued recently. He is on Lasix 20 mg a day. He has underlying CKD with a serum creatinine of around 1.2-1.3 at baseline. Recently there has been a bump in serum creatinine up to 1.6. He was on lisinopril 20 mg a day which has been discontinued few months ago. The diuretics are being adjusted based on the creatinine but he continues to have leg edema and hence this referral. He is history of COPD and obstructive sleep apnea. Was recently hospitalized for exacerbation of COPD. He is currently on prednisone. He had an echocardiogram which did not reveal any significant right sided heart failure. He has a significant history of smoking for almost 40 years 1-2 packs per day he quit smoking about 15 years ago. Review of system was positive for significantly leg edema. He had increased urinary frequency which has resolved. No nausea vomiting no chest pain no palpitations no fever no rash 10/28/2023. He admits taking Bumex for for a week. He took it for few days. Repeat serum creatinine was 1.62. No increase in BUN. He continues her leg edema. Urine did not reveal any significant proteinuria 11/26/2023. He was on Bumex 0.5 mg once a day. However he felt that the leg edema was worsening. He went to the ER and he had more swelling. Bumex was increased to 1 mg a day. However is still believes that the edema gets worse with a high dose of Bumex. He has significant redness in his legs which is pain Doppler did not reveal any DVTs 12/12/2023. After course of antibiotics the erythema has improved. He is still has edema. He is tolerating Lasix well. He is on a course of prednisone prescribed by saw repairer. 01/14/24 Recently in [facility] [place] pneumonia;Treated with antibiotics LEgs with edema Erythema improved with antibiotics 02/03/2024 Continues have leg edema. He was recently in urgent care. No changes were made to diuretics. 02/18/2024. After addition of metolazone he has lost about 12 lb. He did go to the ER with low blood pressure. No changes were made at the time. 03/31/24 Still with edema weight is up PFSH Medical History Nocturnal hypoxia CHF (congestive heart failure) Chronic lung disease COPD with acute exacerbation Chronic lung disease Chronic lung disease Tubular adenoma of colon (~2005) COPD (chronic obstructive pulmonary disease) Pulmonary nodules RAYMOND on CPAP Chronic rhinitis Asthma-COPD overlap syndrome PAF (paroxysmal atrial fibrillation) (~2017) Echocardiogram abnormal Encounter for screening for lung cancer Edema leg Venous insufficiency of both lower extremities AC (acromioclavicular) joint arthritis BPH (benign prostatic hyperplasia) Seasonal allergies Hyperlipidemia Surgical History History of appendectomy History of esophagogastroduodenoscopy (EGD) History of total left hip replacement (~2019) History of repair of right rotator cuff (~2017) History of nasal septoplasty (~2008) History of colonoscopy History of cataract (~2009) Family History Father No problems noted. Mother CAD (coronary artery disease) CHF (congestive heart failure) HTN (hypertension) Brother No problems noted. Brother No problems noted. Sister No problems noted. Sister No problems noted. Sister Mental health disorder Son No problems noted. Son No problems noted. Social History Household Members: Spouse, Family and Children Housing: House Do you presently have visiting nurse or other home services: No Alcohol intake: current Alcohol intake frequency: holidays/special occasions only Patient Tobacco Use Status: Former Tobacco user Tobacco use type: Cigarette Years Smoked: 40 years e-Cigarette/Vaping Use: Former Use Second Hand Smoke Exposure: No Advance Directives Date on File: 10/10/22 service: Yes Current occupational status: retired Cognitive needs: No Hearing needs: No Vision needs: No Physical Exam Vital Signs: Last Vital Signs Pulse 77 03/31/24 11:18 BP 140/50 H 03/31/24 11:18 Pulse Ox 96 03/31/24 11:18 Oxygen Delivery Method Room Air 03/31/24 11:18 BMI result Body Mass Index 32.6 Const General: comfortable; No acute distress Orientation/consciousness: patient oriented x3 Eyes General: appearance normal, both eyes and all related structures Visual [place]: normal visual españa by confrontation Neck Neck: Yes supple and Yes no JVD Resp Effort & Inspection: normal respiratory effort and respiratory effort not decreased Auscultation: rhonchi Cardio Palpation: no palpable S3 and no palpable S4 Heart sounds: no rubs GI Inspection: Yes normal to inspection Palpation (GI): Soft to palpation Percussion: Yes normal to percussion Auscultation: normal bowel sounds General: No CVA tenderness Back/Spine/Pelvis Back: No CVA tenderness Skin General skin exam: no petechiae and no purpura Neuro General: patient oriented x3 and no focal motor deficits Extrem Other: Erythema in both lower extremities with tenderness General: No clubbing and Yes edema (Improved but still with the erythema, not warm or tender) Results Reviewed Nephrology Results: Hgb 12.0 g/dl (14.0-18.0) L 02/06/24 WBC 8.5 X10*3/uL (4.8-10.8) 02/06/24 Plt Count 313 X10*3/uL (160-400) 02/06/24 Sodium 141 mmol/L (135-145) 03/27/24 Potassium 3.8 mmol/L (3.3-5.1) 03/27/24 Chloride 105 mmol/L (96-108) 03/27/24 Carbon Dioxide 28 mmol/L (22-29) 03/27/24 BUN 21 mg/dL (9-16) H 03/27/24 Creatinine 1.70 mg/dL (0.5-1.4) H 03/27/24 Calcium 9.2 mg/dL (8.4-10.2) 03/27/24 Assessment & Plan Assessment & Plan (1) Edema leg: Comment: chronic from venous insufficiency Code(s): R60.0 - Localized edema Category: Medical (2) CKD (chronic kidney disease): Code(s): N18.9 - Chronic kidney disease, unspecified Category: Medical Qualifiers: Chronic kidney disease stage: unspecified stage Qualified Code(s): N18.9 - Chronic kidney disease, unspecified (3) Edema: Code(s): R60.9 - Edema, unspecified Category: Medical (4) Carotid stenosis, bilateral: Code(s): I65.23 - Occlusion and stenosis of bilateral carotid arteries Category: Medical (5) Hypertension: Code(s): I10 - Essential (primary) hypertension Category: Medical Qualifiers: Hypertension type: primary hypertension Qualified Code(s): I10 - Essential (primary) hypertension Plan . 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 Superimposed CHATO due to hypoperfusion in the setting of LATONIA inhibitors and diuretics. Creatinine is improved and down to 1.9 from 3.3 with cautious diuresis Renal ultrasonogram was unremarkable No significant proteinuria serum immunofixation shows IgG kappa monoclonal protein Urinary sediments are bland therefore glomerular/ interstitial disease seem unlikely Echocardiogram revealed normal right ventricular pressures without evidence of right heart failure Serum albumin was relatively low at 3.1. Mild elevation in alkaline phosphatase and ALT; repeat LFTs were normal Keep current dose of LAsix Resume Zaroxolyn 2.5 mg 1x times a week Stay on low-sodium diet. Leg elevation No need for Doppler ultrasonogram at this time. would avoid calcium channel blockers like amlodipine Agree with holding LATONIA inhibitors until renal function stabilizes. . Orders: Orders Creatinine 2 Months N18.9 - Chronic kidney disease, unspecified Blood Urea Nitrogen 2 Months N18.4 - Chronic kidney disease, stage 4 (severe), N18.9 - Chronic kidney disease, unspecified Electrolytes 2 Months E87.1 - Hypo-osmolality and hyponatremia, N18.9 - Chronic kidney disease, unspecified Medications: Changed From metolazone 2.5 mg PO .2 x week 10 tabs 1RF To metolazone 2.5 mg PO .1x week 10 tabs 1RF Refilled furosemide 40 mg PO DAILY 90 tabs 0RF Coding Level of Care Code Est Pt Level 4 (36567) Diagnoses Edema leg R60.0 Chronic kidney disease, unspecified CKD stage N18.9 Chronic kidney disease stage: unspecified stage Edema R60.9 Carotid stenosis, bilateral I65.23 Primary hypertension I10 Hypertension type: primary hypertension
[2024-03-31 11:18] VITALS: BP 140/50; PULSE 77; O2SAT 96; BMI 32.6
== END 2024-03-31 11:32 | disposition home or self-care (01) ==
PROVIDERS: PCP Family Medicine; Visit Provider Internal Medicine Hypertension Specialist
DX: R60.0 Localized edema (principal); I12.9 Hypertensive chronic kidney disease with stage 1 through stage 4 chronic kidney disease, or unspecified chronic kidney disease; N18.9 Chronic kidney disease, unspecified; I65.23 Occlusion and stenosis of bilateral carotid arteries
CPT/HCPCS: 99214

== ENCOUNTER 2024-04-09 09:58 | Outpatient (AMB) | payer MEDICARE, OTHER, SELFPAY ==
[2024-04-09 10:01] VITALS: BP 130/56; BMI 32.6
--- NOTE | 2024-04-09 10:01 | MHC.OFFVIS ---
Vital Signs 04/09/24 10:01 04/09/24 10:10 Height 5 ft 9 in Weight 221 lb BMI 32.6 BP 130/56 L 128/52 L Blood Pressure Location Rt brachial Lt brachial Position Sitting Sitting Intake Visit Reasons: follow up s/p Carotid US 03/23/24 Intake Note: 1 yr follow up carotid US 03/23/24, Pt states no issues over the past year. 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 Pt does have bilateral LE swelling w/ redness that has gotten worse over the past year. Pt does have Left LE pretibial ulcer Accompanied by: Self / Same As Patient Allergies watermelon [WATERMELON] Allergy (Severe, Verified 04/09/24 10:08) ANAPHYLAXIS Iodinated Contrast Media [IV CONTRAST] Allergy (Intermediate, Verified 04/09/24 10:08) LIGHT HEADED AND SHORTNESS OF BREATH HPI HPI follow up s/p Carotid US 03/23/24: Details: Very pleasant 68-year-old gentleman presents for routine follow-up in terms of his carotids. He has had no interval issues in terms of his carotids. He remains asymptomatic. 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 Of note he had previous venous work performed by us. He continues to have significantly swollen lower extremities. They actually have an element of lymphedema. He is quite concerned about these. Reports that he has a difficult time wearing compression stockings but has what appears to be a CircAid type stocking. He now presents to us for routine follow-up [facility] Medical History Nocturnal hypoxia CHF (congestive heart failure) Chronic lung disease COPD with acute exacerbation Chronic lung disease Chronic lung disease Tubular adenoma of colon (~2005) COPD (chronic obstructive pulmonary disease) Pulmonary nodules RAYMOND on CPAP Chronic rhinitis Asthma-COPD overlap syndrome PAF (paroxysmal atrial fibrillation) (~2017) Echocardiogram abnormal Encounter for screening for lung cancer Edema leg Venous insufficiency of both lower extremities AC (acromioclavicular) joint arthritis BPH (benign prostatic hyperplasia) Seasonal allergies Hyperlipidemia Surgical History History of appendectomy History of esophagogastroduodenoscopy (EGD) History of total left hip replacement (~2019) History of repair of right rotator cuff (~2017) History of nasal septoplasty (~2008) History of colonoscopy History of cataract (~2009) Family History Father No problems noted. Mother CAD (coronary artery disease) CHF (congestive heart failure) HTN (hypertension) Brother No problems noted. Brother No problems noted. Sister No problems noted. Sister No problems noted. Sister Mental health disorder Son No problems noted. Son No problems noted. Social History Household Members: Spouse, Family and Children Housing: House Do you presently have visiting nurse or other home services: No Alcohol intake: current Alcohol intake frequency: holidays/special occasions only Patient Tobacco Use Status: Former Tobacco user Tobacco use type: Cigarette Years Smoked: 40 years e-Cigarette/Vaping Use: Former Use Second Hand Smoke Exposure: No Advance Directives Date on File: 10/10/22 service: Yes Current occupational status: retired Cognitive needs: No Hearing needs: No Vision needs: No Review of Systems Const Reports as per HPI ENT Reports no additional complaints Card Denies chest pain, Denies chest pain at rest and Denies chest pain with activity Resp Denies chest congestion and Denies cough GI Reports no additional complaints Musc Details: pain over varicosities, aching of lower extremities, swelling, cramping, heaviness and tiredness, itching Denies abnormal gait Skin/Breast Reports pruritus and Denies wounds Neuro Reports no additional complaints and Denies abnormal gait Psych Denies no additional complaints Physical Exam Vital Signs: Last Vital Signs BP 128/52 L 04/09/24 10:10 BMI result Body Mass Index 32.6 Const General: cooperative, healthy appearing and comfortable Orientation/consciousness: oriented to person, oriented to place and oriented to time Neck Carotids: no bruits Chest Chest palpation & inspection: normal inspection of the chest and normal palpation of entire chest wall Resp Effort & Inspection: normal respiratory effort and able to speak in complete sentences Cardio Rate: regular rate Heart sounds: S1 normal heart sound present and S2 normal heart sound present Peripheral pulses: Peripheral pulses 2+ throughout GI Inspection: Yes normal to inspection Skin Other: +2 edema, large rope-like varicosities greater than 4 mm CEAP Classification C4 - skin color changes Ep - Etiology Primary As - superficial veins P - reflux General skin exam: dry skin Neuro General: oriented to person, oriented to place and oriented to time Extrem Right lower extremity: full ROM, normal capillary refill and edema Left lower extremity: full ROM, normal capillary refill and edema Psych Mental Status: mental status grossly normal Results Reviewed Results Reviewed: Carotid testing dated 03/23/2024 demonstrates right side 50-79% stenosis with a peak systolic velocity of 123 and the left side is 0-49% stenosis. Written report and images were reviewed Assessment & Plan Assessment & Plan (1) Carotid stenosis, bilateral: Code(s): I65.23 - Occlusion and stenosis of bilateral carotid arteries Category: Medical Plan: In short patient has asymptomatic carotid disease. We have reviewed signs and symptoms of a stroke. We also discussed risk factor modification inclusive a healthy diet low in cholesterol. The patient will follow up with us with surveillance ultrasound of the carotids 1 year. Should there be any changes or signs or symptoms of a stroke we will be happy to see them back sooner. Thank you for allowing us to participate in this patient's care. If there are any questions or concerns please do not hesitate to contact us. (2) Varicose veins of right lower extremity with inflammation: Comment: 01/01/2020 - right great saphenous vein Cyanoacralate ablation Code(s): I83.11 - Varicose veins of right lower extremity with inflammation Category: Medical Plan: Patient has significant swelling of the lower extremities. Will repeat his venous insufficiency testing. We did discuss routine conservative measures including compression elevation and exercise. He will follow up with us after testing (3) Varicose veins of left lower extremity with inflammation: Comment: 11/13/2019 - left great saphenous vein Cyanoacralate ablation Code(s): I83.12 - Varicose veins of left lower extremity with inflammation Category: Medical Plan: See above Orders: Orders US carotid duplex BI 1 Year I65.23 - Occlusion and stenosis of bilateral carotid arteries US venous duplex LE BI 1 Week I83.11 - Varicose veins of right lower extremity with inflammation Coding Level of Care Code Est Pt Level 4 (66277) Complex EM visit Add On G2211 Diagnoses Carotid stenosis, bilateral I65.23 Varicose veins of right lower extremity with inflammation I83.11 Varicose veins of left lower extremity with inflammation I83.12
[2024-04-09 10:10] VITALS: BP 128/52
== END 2024-04-09 10:48 | disposition home or self-care (01) ==
PROVIDERS: PCP Family Medicine; Visit Provider Surgery Vascular Surgery
DX: I65.23 Occlusion and stenosis of bilateral carotid arteries (principal); I83.11 Varicose veins of right lower extremity with inflammation; I83.12 Varicose veins of left lower extremity with inflammation
CPT/HCPCS: 99214; G2211

== ENCOUNTER → 2024-04-09 09:58 | Outpatient (BNVA) | payer MEDICARE, OTHER, SELFPAY | PROVIDERS: PCP Family Medicine; Visit Provider Surgery Vascular Surgery | DX: I83.11 Varicose veins of right lower extremity with inflammation (principal); I83.12 Varicose veins of left lower extremity with inflammation; I65.23 Occlusion and stenosis of bilateral carotid arteries; Z87.891 Personal history of nicotine dependence; Z98.890 Other specified postprocedural states | CPT/HCPCS: 99212 ==

== ENCOUNTER 2024-04-15 10:13 | Outpatient (AMB) | payer MEDICARE, OTHER, SELFPAY ==
--- NOTE | 2024-04-15 10:16 | MHC.OFFVIS ---
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 He has been using CPAP therapy the CPAP therapy has been very affecting beneficial. The CPAP therapy he uses every night for more than 4 hours. Recently he did have a CT scan of his chest for the lung cancer screening program and is nodular densities have resolved which is very reassuring. He is scheduled for the CT scan in a year's time. I am hopeful that we can decrease the amount of Xopenex that he is using and then hopefully decrease the amount of budesonide that he is using. His CPAP therapy has been affecting beneficial. He has been getting supplies through [employer] now regularly. His CPAP therapy he does use for more than 4 hours a night. He has lost about 30 lb. He still on Daliresp that is likely contributing to that. If he co 08/28/2023 the patient is here for sick visit. He is having hard time with his breathing. The patient recently call the office with worsening risk was sent to the ER. He wants admitted on August 04 to the hospital. He had a chest x-ray demonstrating bilateral pneumonia. This is superimposed on his underlying interstitial lung disease. He was treated with prednisone addition to antibiotics subsequently discharged. He did not require oxygen upon discharge. The patient has been weaning off the prednisone down to 10 mg of prednisone having hard time with his breathing. He is then in bed now for about 3 days. His coughing has gotten worse expectorating discolored mucus. Denies any hemoptysis. In the office he does have significant wheezing chest tightness. Will go ahead and give him a couple treatments of DuoNeb. Hopefully we can improve his respiratory symptoms we can start antibiotics and give him additional Solu-Medrol and prednisone for home. If however he does not improve after the breathing treatments then will consider transferring him to the ER. 09/18/2023 the patient is here for a pulmonary follow-up visit. The patient recently was hospitalized because of the bad bronchopneumonia and asthma exacerbation. He is now recovering. He feels a little better although starting to get chest tightness again. He has been using prednisone 20 mg daily in his also been using all his respiratory medicines. He is also developing some lower extremity edema swelling redness. Is tender to the touch. It appears to be bilateral cellulitis. I did review his chest x-ray he did have run this is a week ago and compared to the x-ray he had when he was admitted to the hospital still demonstrates hazy opacities suggesting some component of pneumonitis. Therefore will increase the prednisone and also will keep him on some antibiotics to treat him for cellulitis. He will return in 3-4 weeks. If he has any worsening symptoms he will call prior to that visit. 10/07/2023 the patient is here for a pulmonary follow-up visit. The patient is feeling lot better. He is recovering now closer to his baseline. He is down to 20 mg of prednisone. He would like to come off. However, will need to very careful as we wean off slowly. Therefore will decrease by 5 mg every 7-10 days. Hopefully he can come off completely. He continues on his respiratory therapy with good effect. He also continues with CPAP using more than 4 hours a night. The CPAP therapy continues to be affecting beneficial. The lower extremity edema as a little better he continues to have some degree of erythema but it does not look infected anymore. He did complete the doxycycline. Otherwise patient is doing better so therefore we will continue his current respiratory regimen and hopefully we can wean off completely from the prednisone. Will follow-up in 4 months. 04/15/2024 the patient is here for a pulmonary follow-up visit. Overall he is doing okay. Does complaint of dyspnea on exertion. Sometimes he is so short of breath that he goes to his home in uses his oxygen via his concentrator. Which is the portability outside of the home. The patient also has been dealing with renal failure. This kidney now is back to baseline although does have some chronic renal insufficiency. The patient continues on injections, Tezspire. He gets them through his customer account manager. He has been developing increasing infections. Therefore we will be talking to his customer account manager regarding switching his biologic to a different regimen. I do believe does good options specially if he continues with significant COPD and wheezing symptoms. The patient did have a walking oximetry in the office and he did desaturate down to 88% with activity was visibly dyspneic and the heart rate went up to 120 beats per minute. Dyspnea score 7/10. 2 L pulse with sufficient to keep his oxygen around 94 % with activity. He already has oxygen through [employer] as the concentrator home. He will need portability. I will request a portable oxygen concentrator for him to use for better portability outside of the home. Also he will continue to use his CPAP at home. We did review his sleep study. We had requested a titration study but it looks like they just did a regular sleep. Therefore, will have him do an overnight oximetry on room air to see if he still needs the oxygen at nighttime. [facility] Medical History Nocturnal hypoxia CHF (congestive heart failure) Chronic lung disease COPD with acute exacerbation Chronic lung disease Chronic lung disease Tubular adenoma of colon (~2005) COPD (chronic obstructive pulmonary disease) Pulmonary nodules RAYMOND on CPAP Chronic rhinitis Asthma-COPD overlap syndrome PAF (paroxysmal atrial fibrillation) (~2017) Echocardiogram abnormal Encounter for screening for lung cancer Edema leg Venous insufficiency of both lower extremities AC (acromioclavicular) joint arthritis BPH (benign prostatic hyperplasia) Seasonal allergies Hyperlipidemia Surgical History History of appendectomy History of esophagogastroduodenoscopy (EGD) History of total left hip replacement (~2019) History of repair of right rotator cuff (~2017) History of nasal septoplasty (~2008) History of colonoscopy History of cataract (~2009) Family History Father No problems noted. Mother CAD (coronary artery disease) CHF (congestive heart failure) HTN (hypertension) Brother No problems noted. Brother No problems noted. Sister No problems noted. Sister No problems noted. Sister Mental health disorder Son No problems noted. Son No problems noted. Social History Household Members: Spouse, Family and Children Housing: House Do you presently have visiting nurse or other home services: No Alcohol intake: current Alcohol intake frequency: holidays/special occasions only Patient Tobacco Use Status: Former Tobacco user Tobacco use type: Cigarette Years Smoked: 40 years e-Cigarette/Vaping Use: Former Use Second Hand Smoke Exposure: No Advance Directives Date on File: 10/10/22 service: Yes Current occupational status: retired Cognitive needs: No Hearing needs: No Vision needs: No Review of Systems Const Reports daytime sleepiness, Reports difficulty sleeping and Reports fatigue Eyes Denies change in vision ENT Reports nasal congestion, Reports nasal discharge and Reports sore throat Card Denies chest pain and Reports dyspnea on exertion Resp Reports cough, Denies hemoptysis, Reports dyspnea on exertion and Reports wheezing GI Reports no additional complaints Musc Reports no additional complaints Skin/Breast Denies rash Neuro Reports no additional complaints Psych Reports no additional complaints Endo Reports fatigue and Denies heat intolerance Kelvin/Lymph Denies easy bleeding, Denies easy bruising and Denies lymphadenopathy Aller/Immun Reports wheezing Physical Exam Vital Signs: Last Vital Signs Pulse 94 04/15/24 10:17 BP 102/48 L 04/15/24 10:17 Pulse Ox 95 04/15/24 10:17 Oxygen Delivery Method Room Air 04/15/24 10:17 BMI result Body Mass Index 32.9 Const General: comfortable and alert Orientation/consciousness: patient oriented x3 Eyes Pupils: Equal, round and reactive pupils present Neck Neck: Yes normal visual inspection, Yes full ROM and Yes no lymphadenopathy Chest Chest palpation & inspection: normal inspection of the chest Resp Effort & Inspection: normal respiratory effort and prolonged expiratory phase Auscultation: rhonchi, wheezes and diminished lung sounds Cardio Rate: regular rate Rhythm: regular rhythm Heart sounds: S1 normal heart sound present and S2 normal heart sound present GI Palpation (GI): Soft to palpation and nontender Auscultation: normal bowel sounds General: Yes no CVA tenderness Back/Spine/Pelvis Back: no CVA tenderness Skin General skin exam: no rashes or lesions noted Neuro General: patient oriented x3 Cranial nerves: Yes Equal, round and reactive pupils present Extrem General: Yes no clubbing, cyanosis or edema Office Procedures 6 Minute Walk Time:: 17:56 SPO2 % at rest: 94 Pulse at rest: 89 SPO2 % during excercise: 88 Pulse during excercise: 104 Distance in yards walked: 300 Leila Score: 6 Supplemental Oxygen: placed on 2l/pulse with activity keeping pox 93% with activity 50173 - 6 Minute Walk Assessment & Plan Assessment & Plan (1) Asthma-COPD overlap syndrome: Code(s): J44.9 - Chronic obstructive pulmonary disease, unspecified Category: Medical (2) COPD (chronic obstructive pulmonary disease): Code(s): J44.9 - Chronic obstructive pulmonary disease, unspecified Category: Medical Qualifiers: COPD type: chronic bronchitis Chronic bronchitis type: mucopurulent Qualified Code(s): J41.1 - Mucopurulent chronic bronchitis (3) Pulmonary nodules: Code(s): R91.8 - Other nonspecific abnormal finding of lung field Category: Medical (4) RAYMOND on CPAP: Code(s): G47.33 - Obstructive sleep apnea (adult) (pediatric); Z99.89 - Dependence on other enabling machines and devices Category: Medical (5) Chronic rhinitis: Code(s): J31.0 - Chronic rhinitis Category: Medical (6) Nocturnal hypoxia: Code(s): G47.34 - Idiopathic sleep related nonobstructive alveolar hypoventilation Category: Medical Plan Ct chest to assess right sided nodular density continue Tezspire [id number], Will call Dr Ornelas about changing Biologic continue Brovana/BUdesonide BID ANN as needed continue APAP, adjusted pressures 6-12 Add oxygen with activity: POC 2L/min with activity. Requesting POC for better portability outside of the home continue oxygen supplementation while sleeping with CPAP. will request overnight oximetry F/U 1-2 months Orders: Orders Overnight Pulse Oximetry 04/15/24 G47.34 - Idiopathic sleep related nonobstructive alveolar hypoventilation Coding Level of Care Code Est Pt Level 4 (63245) Complex EM visit Add On G2211 Diagnoses Asthma-COPD overlap syndrome J44.9 Mucopurulent chronic bronchitis J41.1 COPD type: chronic bronchitis Chronic bronchitis type: mucopurulent Pulmonary nodules R91.8 RAYMOND on CPAP G47.33; Z99.89 Chronic rhinitis J31.0 Nocturnal hypoxia G47.34 CPT Codes Coding ([id number]) Time Spent (min) 18
[2024-04-15 10:17] VITALS: BP 102/48; PULSE 94; O2SAT 95; BMI 32.9
[2024-04-19 17:54] VITALS: PULSE 89; O2SAT 94
== END 2024-04-15 10:49 | disposition home or self-care (01) ==
PROVIDERS: PCP Family Medicine; Visit Provider Hospitalist
DX: J41.1 Mucopurulent chronic bronchitis (principal); R91.8 Other nonspecific abnormal finding of lung field; G47.33 Obstructive sleep apnea (adult) (pediatric); Z99.89 Dependence on other enabling machines and devices; J31.0 Chronic rhinitis; G47.34 Idiopathic sleep related nonobstructive alveolar hypoventilation
CPT/HCPCS: 94618; 99214

== ENCOUNTER → 2024-04-15 10:13 | Outpatient (BNVA) | payer MEDICARE, OTHER, SELFPAY | PROVIDERS: PCP Family Medicine; Visit Provider Hospitalist | DX: J41.1 Mucopurulent chronic bronchitis (principal); J84.9 Interstitial pulmonary disease, unspecified; J31.0 Chronic rhinitis; R91.8 Other nonspecific abnormal finding of lung field; G47.33 Obstructive sleep apnea (adult) (pediatric); G47.34 Idiopathic sleep related nonobstructive alveolar hypoventilation; Z99.89 Dependence on other enabling machines and devices | CPT/HCPCS: 94618; 99212 ==

== ENCOUNTER 2024-04-29 08:22 | Outpatient (REF) | payer MEDICARE, OTHER, SELFPAY ==
--- OUTSIDE RECORDS SUMMARY | 2024-04-29 23:03 | XMS_ITS | Continuity of Care Document ---
Author Name [facility] Organization [facility] Care Team Providers Care Nurse Ldr Name Role Phone [facility] Unavailable Unavailable Medications Combined list of outpatient medications from Department of Defense and Veterans Affairs facilities.Medications provided include 1) outpatient medications from the last 15 months, and 2) patient-reported medications. Medication Details Route Status Patient Instructions Prescription Expires Prescription Number Last Dispense Date Ordering Provider Order Date Order Qty Source ALBUTEROL SULFATE HFA (albuterol sulfate), 90 MCG, HFA AER AD, INHALATION, LUPIN PHARMACEU, 8.5 g CANISTER Active [id number] 4 2023 8.5 Pharmac y Data Transac tion Service Facilit y AMLODIPINE BESYLATE (AMLODIPINE BESYLATE), 5 MG, TABLET, ORAL, [employer], 1000 ea. BOTTLE Active [id number] 4 2023 90 Pharmac y Data Transac tion Service Facilit y ARFORMOTERO L TARTRATE (arformoter ol tartrate), 15MCG/2ML, VIAL-NEB, INHALATION, LIFESTAR PHARMA, 2 ml VIAL Active [id number] 4 2023 360 Pharmac y Data Transac tion Service Facilit y Benzonatate ([employer]) 100 CAPSULE in 1 BOTTLE Active [id number] 09/07/19 2 4 2023 30 Pharmac y Data Transac tion Service Facilit y BUDESONIDE (budesonide ), 0.5 MG/2ML, AMPUL-NEB, INHALATION, EXELAN PHARMACE, 2 ml AMPUL Active [id number] 4 2023 360 Pharmac y Data Transac tion Service Facilit y BUDESONIDE (budesonide ), 0.5 MG/2ML, AMPUL-NEB, INHALATION, EXELAN PHARMACE, 2 ml AMPUL Active [id number] 4 2023 360 Pharmac y Data Transac tion Service Facilit y BUMETANIDE (BUMETANIDE ), 0.5MG, TABLET, ORAL, [facility] [employer], 100 ea. BOTTLE Active [id number] 4 2023 30 Pharmac y Data Transac tion Service Facilit y BUMETANIDE (BUMETANIDE ), 0.5MG, TABLET, ORAL, [facility] [employer], 100 ea. BOTTLE Active [id number] 4 2023 30 Pharmac y Data Transac tion Service Facilit y Cefpodoxime Proxetil (Cefpodoxim e Proxetil), 200mg, Tablet, Oral, Sandoz, 20 Ea. Bottle Active [id number] 4 2023 20 Pharmac y Data Transac tion Service Facilit y DOXYCYCLINE HYCLATE (DOXYCYCLIN E HYCLATE), 100 MG, CAPSULE, ORAL, [place],I NC., 500 ea. BOTTLE Active [id number] 4 2023 20 Pharmac y Data Transac tion Service Facilit y DOXYCYCLINE MONOHYDRATE (DOXYCYCLIN E MONOHYDRATE ), 100 MG, CAPSULE, ORAL, LUPIN PHARMACEU, 50 ea. BOTTLE Active [id number] 2023 6 Pharmac y Data Transac tion Service Facilit y ELIQUIS (APIXABAN), 5 MG, TABLET, ORAL, BMS PRIMARYCARE , 60 ea. BOTTLE Active [id number] 4 2023 180 Pharmac y Data Transac tion Service Facilit y ELIQUIS (APIXABAN), 5 MG, TABLET, ORAL, BMS PRIMARYCARE , 60 ea. BOTTLE Active [id number] 4 2023 180 Pharmac y Data Transac tion Service Facilit y FLUAD QUAD (influenza vaccine quadrivalen t (65 yr up)/MF59C.1 /PF), 60MCG/.5ML, SYRINGE, INTRAMUSC, [employer] .5 ml SYRINGE Active [id number] 3 2023 0.5 Pharmac y Data Transac tion Service Facilit y FLUTICASONE PROPIONATE (FLUTICASON E PROPIONATE) , 50MCG, SPRAY SUSP, NASAL, APOTEX [place], 16 g AER W/ADAP Active [id number] 4 2023 16 Pharmac y Data Transac tion Service Facilit y FUROSEMIDE (furosemide ), 20 MG, TABLET, ORAL, AVKARE, 1000 ea. BOTTLE Cancele d [id number] : 2023 0 Pharmac y Data Transac tion Service Facilit y FUROSEMIDE (furosemide ), 20 MG, TABLET, ORAL, AVKARE, 1000 ea. BOTTLE Active [id number] 4 2023 45 Pharmac y Data Transac tion Service Facilit y LEVALBUTERO L HCL (levalbuter ol HCl), 1.25MG/3ML, VIAL-NEB, INHALATION, AMNEAL PHARMACE, 3 ml VIAL Cancele d [id number] 4 [id number] : 2023 0 Pharmac y Data Transac tion Service Facilit y LEVALBUTERO L HCL (levalbuter ol HCl), 1.25MG/3ML, VIAL-NEB, INHALATION, TEVA [place], 3 ml VIAL Cancele d [id number] : 2023 0 Pharmac y Data Transac tion Service Facilit y METOPROLOL SUCCINATE (metoprolol succinate), 100 MG, TAB ER 24H, ORAL, [employer] 1000 ea. BOTTLE Cancele d [id number] : 2023 0 Pharmac y Data Transac tion Service Facilit y METOPROLOL SUCCINATE (metoprolol succinate), 100 MG, TAB ER 24H, ORAL, [employer] 1000 ea. BOTTLE Active [id number] 2023 90 Pharmac y Data Transac tion Service Facilit y MULTAQ (DRONEDARON E HYDROCHLORI DE), 400 MG, TABLET, ORAL, SANOFI-AVEN TIS, 60 ea. BOTTLE Active [id number] 2022 180 Pharmac y Data Transac tion Service Facilit y MULTAQ (DRONEDARON E HYDROCHLORI DE), 400 MG, TABLET, ORAL, SANOFI-AVEN TIS, 60 ea. BOTTLE Active [id number] 4 2023 180 Pharmac y Data Transac tion Service Facilit y PREDNISONE (prednisone ), 10 MG, TABLET, ORAL, AMNEAL PHARMACE, 100 ea. BOTTLE Active [id number] 4 2023 60 Pharmac y Data Transac tion Service Facilit y PREDNISONE (prednisone ), 10 MG, TABLET, ORAL, AMNEAL PHARMACE, 100 ea. BOTTLE Active [id number] 2023 60 Pharmac y Data Transac tion Service Facilit y PREDNISONE (prednisone ), 10 MG, TABLET, ORAL, NOVITIUM/AN I PH, 100 ea. BOTTLE Active [id number] 4 2023 63 Pharmac y Data Transac tion Service Facilit y PREDNISONE (prednisone ), 10 MG, TABLET, ORAL, STRIDES PHARMA, 500 ea. BOTTLE Active [id number] 4 2023 120 Pharmac y Data Transac tion Service Facilit y PREDNISONE (PREDNISONE ), 20MG, TABLET, ORAL, CADISTA PHARMAC, 500 ea. BOTTLE Active [id number] 4 2023 8 Pharmac y Data Transac tion Service Facilit y ROFLUMILAST (roflumilas t), 500 MCG, TABLET, ORAL, NOVADOZ PHARMAC, 30 ea. BOTTLE Active [id number] 4 2023 90 Pharmac y Data Transac tion Service Facilit y TAMSULOSIN HCL (TAMSULOSIN HCL), 0.4 MG, CAP.SR 24H, ORAL, ZYDUS PHARMACEU, 1000 ea. BOTTLE Active [id number] 4 2023 180 Pharmac y Data Transac tion Service Facilit y Social History Combined list of available smoking, tobacco, and other social history from Department of Defense and Veterans Affairs facilities. Social History Type Response Date Comment Sour e This section is an empty social history section. DoD
--- OUTSIDE RECORDS SUMMARY | 2024-04-29 23:03 | XMS_ITS | Patient Health Record ---
Author Organization [facility] Address [address] [place] [id number] Care Team Providers Care Load Builder Name Role Phone Gin Correa MD Primary Care Provider Kwame Jackson [phone] ALLERGIES No Known Allergies REASON FOR REFERRAL No Information MEDICATIONS Medication SIG (Take, Route, Frequency, Duration) Notes Start Date End Date Status Ipratropium-Albuterol 0.5-2.5 (3) MG/3ML 3 ml Inhalation every 6 hrs Active Tiotropium [place]-Olodaterol 2.5-2.5 MCG/ACT 2 puffs Inhalation Once a day Active Daliresp 500 MCG 1 tablet Orally Once a day Active Flunisolide HFA 80 MCG/ACT 2 puffs Inhalation Twice a day Active Beclomethasone Diprop Monohyd 42 MCG/SPRAY 1 puff in each nostril Nasally Twice a day Active Levalbuterol HCl 0.63 MG/3ML 3 ml Inhalation every 8 hrs Active Flovent HFA 44 MCG/ACT 2 puffs Inhalatio n Twice a day Active Multaq 400 MG 1 tablet with meals Orally Twice a day for 30 day(s) Active Furosemide 40 MG 1 tablet Orally Once a day Not-Taking ProAir HFA 108 (90 Base) MCG/ACT 1 puff as needed Inhalation every 4 hrs Active Albuterol Sulfate (5 MG/ML) 0.5% 1 tablet Inhalation Three times a day Active Tamsulosin HCl 0.4 MG 1 capsule Orally O nce a day for 30 day(s) Active Fluticasone Propionate 50 MCG/ACT 1 spray in each nostril Nasally Once a day Active Omeprazole 20 MG 1 capsule Orally Onc e a day Not-Taking Atorvastatin Calcium 80 MG 1 tablet Orally Once a day for 30 day(s) Active Azelastine-Fluticasone 137-50 MCG/ACT 1 puff in each nostril Nasally Twice a day Active Brovana 15 MCG/2ML 2 ml Inhalation Twic e a day Active Aspir-81 81 MG 1 tablet Orally Once a day Active Dupixent 300 MG/2ML as directed Subcutaneous Active Flomax 0.4 MG 1 capsule Orally twi ce a day Active Eliquis 5 MG as directed Orally Active Montelukast Sodium 10 MG 1 tablet in the evening Orally Once a day Active buPROPion HCl 75 MG 2 tablet Orally twic e a day Active IMMUNIZATIONS Vaccine Route Administration Date Status Comme nts Flu vaccine no Preserv 3 and > Unknown 03/05/2017 Admin istered Influenza Unknown 03/08/2021 Administered SOCIAL HISTORY Tobacco Use: Social History Observation Description Date Details (start date - stop date) Former Smoker NA - NA Sex Assigned At : Social History Observation Description Sex Assigned At Unknown Tobacco Use/Smoking Question Answer Notes Patient is a former smoker How long has it been since you last smoked? 5-10 years Alcohol Screen Question Answer Notes Did you have a drink contain ing alcohol in the past year? Yes How often did you have a dri nk containing alcohol in the past year? 2 to 3 times a week (3 points) How many drinks did you have on a typical day when you were drinking in the past year? 3 or 4 drinks (1 point) How often did you have 6 or more drinks on one occasion in the past year? Never (0 point) Points 4 Interpretation Positive PROBLEMS Problem Type ICD Code Onset Dates Problem Status W/U Status Risk SNOMED Code Notes Problem Encounter for screening for malignant neoplasm of colon (Z12.11) Active confirmed 884643481 Problem History of adenomatous polyp of colon (Z86.010) Active confirmed 343595112 Problem Watters's esophagus without dysplasia (K22.70) Active confirmed 626706536 Problem Preprocedural examination (Z01.818) Active confirmed 144662723 Problem Gastroesophageal reflux disease, esophagitis presence not specified (K21.9) Active confirmed 050739460 Problem Long-term use of aspirin therapy (Z79.82) Active confirmed 768533614 Problem 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) Active confirmed Watters esophagus (307200499) Problem Diverticulosis of colon (K57.30) Active confirmed Diverticulosi s of colon (634523628) PLAN OF TREATMENT Pending Test Test Name Order Date Pathology 09/18/2021 Future Test Test Name Order Date COLONOSCOPY 06/12/2012 UPPER GI ENDOSCOPY 07/10/2017 COLONOSCOPY 07/10/2017 UPPER GI ENDOSCOPY 08/24/2021 COLONOSCOPY 08/24/2021 Insurance Providers Payer Name Payer Address Payer Phone Subscriber Number Group Number Insured Name Patient Relationship to Insured Coverage Start Date Coverage End Date [place] OF [place] [address] [place] [address] [id number] MARIAH BAKER Self - patient is the insured [employer] [address] [place] [address] [id number] MARIAH BAKER Self - patient is the insured MEDICAL (GENERAL) HISTORY Medical History History ICD Code Colonoscopy 10/08/2005-2 tub ular adenomas removed- 1 in the rectum was > 1 cm and with high grade dysplasia---neg. colonoscopy in 07/2012 except for diverticulosis and hemorrhoids Denies AK,DM,CVA,renal disease COPD/Asthma GERD-EGD 09/2017 with small HH and Adair t's esophagus, no dysplasia BPH Sleep apnea--uses CPAP Colonoscopy 09/2017 with tubular adenomas removed Surgical History Surgery Date(Month/Year) Bilateral rotator cuff surgery x 2 Appendectomy Cataracts Left hip replacment 05/2019
== END 2024-04-29 08:23 | disposition home or self-care (01) ==
LOC: HO.US 08:22
PROVIDERS: PCP Family Medicine; Visit Provider Surgery Vascular Surgery
DX: I83.11 Varicose veins of right lower extremity with inflammation (principal)
CPT/HCPCS: 93970

== ENCOUNTER 2024-05-05 09:46 | Outpatient (AMB) | payer MEDICARE, OTHER, SELFPAY ==
--- OUTSIDE RECORDS SUMMARY | 2024-05-05 09:49 | XMS_ITS | Patient Health Record ---
Author Organization [facility] Address [address] [place] [id number] Care Team Providers Care Wire Weaver Cloth Name Role Phone Gin Correa MD Primary Care Provider Kwame Jackson [phone] ALLERGIES No Known Allergies REASON FOR REFERRAL No Information MEDICATIONS Medication SIG (Take, Route, Frequency, Duration) Notes Start Date End Date Status Ipratropium-Albuterol 0.5-2.5 (3) MG/3ML 3 ml Inhalation every 6 hrs Active Tiotropium [place]-Olodaterol 2.5-2.5 MCG/ACT 2 puffs Inhalation Once a [...] malignant neoplasm of colon (Z12.11) Active confirmed 950620210 Problem History of adenomatous polyp of colon (Z86.010) Active confirmed 080636714 Problem Watters's esophagus without dysplasia (K22.70) Active confirmed 412958797 Problem Preprocedural examination (Z01.818) Active confirmed 805795766 Problem Gastroesophageal reflux disease, esophagitis presence not specified (K21.9) Active confirmed 067376176 Problem Long-term use of aspirin therapy (Z79.82) Active confirmed 410802994 Problem 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) Active confirmed Watters esophagus (314299954) Problem Diverticulosis of colon (K57.30) Active confirmed Diverticulosi s of colon (378320161) PLAN OF TREATMENT Pending Test Test Name [...] [place] [address] [place] [address] [id number] MARIAH BAKER Self - patient is the insured [employer] [address] [place] [address] [phone] [id number] MARIAH BAKER Self - patient is the insured MEDICAL (GENERAL) HISTORY Medical History History ICD Code Colonoscopy 10/08/2005-2 tub ular adenomas removed- 1 in the rectum was > 1 cm and with high grade dysplasia---neg. colonoscopy in 07/2012 except for diverticulosis and hemorrhoids Denies AL,DM,CVA,renal disease COPD/Asthma GERD-EGD 09/2017 with small HH and Adair t's esophagus, no dysplasia BPH Sleep apnea--uses CPAP Colonoscopy 09/2017 with tubular adenomas removed Surgical History Surgery Date(Month/Year) Bilateral rotator cuff surgery x 2 Appendectomy Cataracts Left hip replacment 05/2019
--- NOTE | 2024-05-05 10:02 | MHC.PC.OV ---
Vital Signs 05/05/24 10:09 Height 5 ft 9 in Weight 222 lb 4 oz BMI 32.8 BP 128/60 Blood Pressure Location Rt brachial Position Sitting Respiration 14 Pulse 82 Pulse Source Pulse Oximeter Temp 98.0 F Temp Source Oral Pulse Oximetry (%) 97 Oxygen Delivery Method Room Air Intake Visit Reasons: f/u HTN Intake Note: f/u HTN Allergies watermelon [WATERMELON] Allergy (Severe, Verified 05/05/24 10:03) ANAPHYLAXIS Iodinated Contrast Media [IV CONTRAST] Allergy (Intermediate, Verified 05/05/24 10:03) LIGHT HEADED AND SHORTNESS OF BREATH Medication List - Last Reconciled 05/05/24 by Guilherme Mcallister MD albuterol sulfate 90 mcg/actuation 2 puffs inhalation QID PRN amlodipine 5 mg PO DAILY 90 days apixaban (Eliquis) 5 mg PO BID arformoterol (Brovana) 15 mcg (2 mL) inhalation BID atorvastatin 80 mg PO DAILY benzonatate 100 mg PO BID-TID PRN blood pressure monitor Automatic, Digital. Dx: I10. Daily As directed, 999 days/lifetime budesonide 0.5 mg (2 mL) inhalation BID bupropion HCl 150 mg (2 x 75 mg) PO BID 90 days CPAP (CPAP Machine/Device) As directed dronedarone (Multaq) 400 mg PO BID 90 days furosemide (Lasix) 20 mg PO DAILY@1700 furosemide 40 mg PO DAILY guaifenesin ER (Mucinex) 600 mg PO BID levalbuterol HCl 1.25 mg (3 mL) inhalation BID 90 days losartan 37.5 mg (1.5 x 25 mg) PO DAILY 90 days metolazone 2.5 mg PO .1x week metoprolol succinate ER 100 mg PO DAILY montelukast 10 mg PO DAILY nebulizers As directed Oxygen Home Use As directed roflumilast 500 mcg PO DAILY tamsulosin (Flomax) 0.4 mg PO BID 90 days tezepelumab-ekko (Tezspire) 210 mg subcut Q4W Tobacco use date assessed: 09/26/23 Dental Screening Dental Screen Date: 09/26/23 HPI f/u HTN HPI Details 68 y/o male presents to f/u hypertension. BP at home had been too high so I had added amlodipine. Continued losartan. Blood pressure today 128/60, 82p. Had his flu shot last week. Due for RSV shot. [facility] Medical History Nocturnal hypoxia CHF (congestive heart failure) Chronic lung disease COPD with acute exacerbation Chronic lung disease Chronic lung disease Tubular adenoma of colon (~2005) COPD (chronic obstructive pulmonary disease) Pulmonary nodules RAYMOND on CPAP Chronic rhinitis Asthma-COPD overlap syndrome PAF (paroxysmal atrial fibrillation) (~2017) Echocardiogram abnormal Encounter for screening for lung cancer Edema leg Venous insufficiency of both lower extremities AC (acromioclavicular) joint arthritis BPH (benign prostatic hyperplasia) Seasonal allergies Hyperlipidemia Surgical History History of appendectomy History of esophagogastroduodenoscopy (EGD) History of total left hip replacement (~2019) History of repair of right rotator cuff (~2017) History of nasal septoplasty (~2008) History of colonoscopy History of cataract (~2009) Family History Father No problems noted. Mother CAD (coronary artery disease) CHF (congestive heart failure) HTN (hypertension) Brother No problems noted. Brother No problems noted. Sister No problems noted. Sister No problems noted. Sister Mental health disorder Son No problems noted. Son No problems noted. Social History Household Members: Spouse, Family and Children Housing: House Do you presently have visiting nurse or other home services: No Alcohol intake: current Alcohol intake frequency: holidays/special occasions only Patient Tobacco Use Status: Former Tobacco user Tobacco use type: Cigarette Years Smoked: 40 years e-Cigarette/Vaping Use: Former Use Second Hand Smoke Exposure: No Advance Directives Date on File: 10/10/22 service: Yes Current occupational status: retired Cognitive needs: No Hearing needs: No Vision needs: No Questionnaire Thrive Questionnaire Date Thrive assessed: 03/31/24 I am a: Patient What is your living situation today?: I have a steady place to live Within the past 12 months, did the food you bought not last and you didn't have the money to get more?: Never true Within the past 12 months, did you worry whether your food would run out before you got money to buy more?: Never true Do you have trouble paying for medicines?: No Do you have trouble getting transportation to medical appointments?: I choose not to answer this question Do you have trouble paying your heating and electricity bill?: I choose not to answer this question Do you have trouble taking care of your child, family member or friend?: I choose not to answer this question Do you have trouble with day-to-day activities such as bathing, preparing meals, shopping, managing finances, etc.?: I choose not to answer this question Are you currently unemployed and looking for a job?: I choose not to answer this question Are you interested in more education?: I choose not to answer this question Please select the resources that you would like help with: None Currently or been in a relationship where the following occur: No concerns reported THRIVE Score: 0 STEVEN-7 AMB Questionnaire STEVEN-7 Date STEVEN - 7 assessed: 06/27/23 Source: Developed by Drs. Kwame William, Cayla Candelario, Damian Lee and colleagues, with an educational maria g from [employer]. Review of Systems Const Denies chills, Denies fatigue, Denies fever(s), Denies headache(s) and Denies weakness ENT Denies dizziness and Denies headache(s) Card Denies dyspnea Resp Denies cough, Denies dyspnea, Denies wheezing and Denies other (shortness of breath) Musc Denies numbness and Denies tingling Neuro Denies dizziness, Denies headache(s), Denies numbness, Denies tingling and Denies weakness Psych Denies anxiety and Denies depression Endo Denies fatigue Aller/Immun Denies wheezing Physical exam (Primary Care) Vital Signs: Last Vital Signs Temp 98.0 F 05/05/24 10:09 Pulse 82 05/05/24 10:09 Resp 14 05/05/24 10:09 BP 128/60 05/05/24 10:09 Pulse Ox 97 05/05/24 10:09 Oxygen Delivery Method Room Air 05/05/24 10:09 BMI result Body Mass Index 32.8 Tobacco/Smoking Status: Tobacco use Status Tobacco use date assessed 09/26/23 05/05/24 10:06 Patient Tobacco Use Status Former Tobacco user 05/05/24 10:06 Tobacco use type Cigarette 05/05/24 10:06 e-Cigarette/Vaping Use Former Use 05/05/24 10:06 Thrive Assessment: Date of Thrive Assessment Date Thrive assessed 03/31/24 05/05/24 10:06 Currently or been in a relationship where the following occur: No concerns reported Const General: well developed; No acute distress Nutritional Appearance: well nourished Orientation/consciousness: patient oriented x3 HENMT Head: Yes normocephalic and Yes atraumatic Eyes General: appearance normal, both eyes and all related structures Pupils: Equal, round and reactive pupils present EOM: EOMs intact bilaterally Resp Effort & Inspection: normal respiratory effort Neuro General: patient oriented x3 and gait normal Cranial nerves: Yes Equal, round and reactive pupils present Psych Affect: normal affect Coding Level of Care Code Est Pt Level 3 (74113) Diagnoses Primary hypertension I10 Hypertension type: primary hypertension Chronic kidney disease, unspecified CKD stage N18.9 Chronic kidney disease stage: unspecified stage Immunization counseling Z71.85 Assessment & Plan Assessment & Plan (1) Hypertension: Code(s): I10 - Essential (primary) hypertension Category: Medical Qualifiers: Hypertension type: primary hypertension Qualified Code(s): I10 - Essential (primary) hypertension Plan: Blood?pressure?appears?controlled.??Goal?is?less?than?140/90 Amlodipine?had?worsened?lower?extremity?edema?and?is?stopped. Amlodipine?removed?from?med?list He?will?continue?his?current?medication?regimen. (2) CKD (chronic kidney disease): Code(s): N18.9 - Chronic kidney disease, unspecified Category: Medical Qualifiers: Chronic kidney disease stage: unspecified stage Qualified Code(s): N18.9 - Chronic kidney disease, unspecified Plan: Creatinine?level?has?been?declining. Will?continue?good?control?of?blood?pressure He?is?avoiding?NSAIDs?watching?salt/sodium?in?diet Hydrate?well f/u w/?Nephrology?as?recommended (3) Immunization counseling: Code(s): Z71.85 - Encounter for immunization safety counseling Category: Medical Plan: Patient?is?interested?in?additional?coverage?for?pneumonia?and?recommended?PCV?21. Also?recommended?RSV?and?shingles.??He?will?check?his?pharmacy. Medications: Discontinued amlodipine Discontinued Reason: Doctor's Order 5 mg PO DAILY 90 days 90 tabs 2RF
[2024-05-05 10:09] VITALS: BP 128/60; PULSE 82; RESP 14; TEMP 36.7; O2SAT 97; BMI 32.8
== END 2024-05-05 10:36 | disposition home or self-care (01) ==
PROVIDERS: PCP Family Medicine; Visit Provider Family Medicine
DX: I12.9 Hypertensive chronic kidney disease with stage 1 through stage 4 chronic kidney disease, or unspecified chronic kidney disease (principal); N18.9 Chronic kidney disease, unspecified; Z71.85 Encounter for immunization safety counseling

== ENCOUNTER → 2024-05-05 09:46 | Outpatient (BNVA) | payer MEDICARE, OTHER, SELFPAY | PROVIDERS: PCP Family Medicine; Visit Provider Family Medicine | DX: I12.9 Hypertensive chronic kidney disease with stage 1 through stage 4 chronic kidney disease, or unspecified chronic kidney disease (principal); N18.9 Chronic kidney disease, unspecified; Z71.85 Encounter for immunization safety counseling; Z79.899 Other long term (current) drug therapy | CPT/HCPCS: 99212 ==

== ENCOUNTER 2024-05-28 12:11 | Outpatient (REF) | payer MEDICARE, OTHER, SELFPAY ==
--- OUTSIDE RECORDS SUMMARY | 2024-05-28 14:48 | XMS_ITS | Continuity of Care Document ---
Author Name [facility] Organization [facility] Care Team Providers Care Stockroom Associate Name Role Phone [facility] Unavailable Unavailable Medications Combined list of outpatient [...] INHALATION, LUPIN PHARMACEU, 8.5 g CANISTER Active [id number] 4 2023 8.5 Pharmac y Data Transac tion Service Facilit y AMLODIPINE BESYLATE (AMLODIPINE BESYLATE), 5 MG, TABLET, ORAL, [employer], 1000 ea. BOTTLE Active [id number] 4 2023 90 Pharmac y Data Transac tion Service Facilit y ARFORMOTERO L TARTRATE (arformoter ol tartrate), 15MCG/2ML, VIAL-NEB, INHALATION, LIFESTAR PHARMA, 2 ml VIAL Active [id number] 4 2023 360 Pharmac y Data Transac tion Service Facilit y Benzonatate ([employer]) 100 CAPSULE in 1 BOTTLE Active [id number] 09/07/19 2 4 2023 30 Pharmac y Data Transac tion Service Facilit y BUDESONIDE (budesonide ), 0.5 MG/2ML, AMPUL-NEB, INHALATION, EXELAN PHARMACE, 2 ml AMPUL Active [id number] 4 2023 360 Pharmac y Data Transac tion Service Facilit y BUDESONIDE (budesonide ), 0.5 MG/2ML, AMPUL-NEB, INHALATION, EXELAN PHARMACE, 2 ml AMPUL Active [id number] 4 2023 360 Pharmac y Data Transac tion Service Facilit y BUMETANIDE (BUMETANIDE ), 0.5MG, TABLET, ORAL, [facility], 100 ea. BOTTLE Active [id number] 4 2023 30 Pharmac y Data Transac tion Service Facilit y BUMETANIDE (BUMETANIDE ), 0.5MG, TABLET, ORAL, [facility], 100 ea. BOTTLE Active [id number] 4 2023 30 Pharmac y Data Transac tion Service Facilit y Cefpodoxime Proxetil (Cefpodoxim e Proxetil), 200mg, Tablet, Oral, Sandoz, 20 Ea. Bottle Active [id number] 4 2023 20 Pharmac y Data Transac tion Service Facilit y DOXYCYCLINE HYCLATE (DOXYCYCLIN E HYCLATE), 100 MG, CAPSULE, ORAL, WEST-OLVER[place],I NC., 500 ea. BOTTLE Active [id number] 4 2023 20 Pharmac y Data Transac tion Service Facilit y DOXYCYCLINE MONOHYDRATE (DOXYCYCLIN E MONOHYDRATE ), 100 MG, CAPSULE, ORAL, LUPIN PHARMACEU, 50 ea. BOTTLE Active [id number] 4 2023 6 Pharmac y Data Transac tion Service Facilit y ELIQUIS (APIXABAN), 5 MG, TABLET, ORAL, BMS PRIMARYCARE , 60 ea. BOTTLE Active [id number] 4 2023 180 Pharmac y Data Transac tion Service Facilit y ELIQUIS (APIXABAN), 5 MG, TABLET, ORAL, BMS PRIMARYCARE , 60 ea. BOTTLE Active [id number] 4 2023 180 Pharmac y Data Transac tion Service Facilit y FLUAD QUAD (influenza vaccine quadrivalen t (65 yr up)/MF59C.1 /PF), 60MCG/.5ML, SYRINGE, INTRAMUSC, [employer]US[employer] INC., .5 ml SYRINGE Active [id number] 3 2023 0.5 Pharmac y Data Transac tion Service Facilit y FLUTICASONE PROPIONATE (FLUTICASON E PROPIONATE) , 50MCG, SPRAY SUSP, NASAL, APOTEX [place], 16 g AER W/ADAP Active [id number] 4 2023 16 Pharmac y Data Transac tion Service Facilit y FUROSEMIDE (furosemide ), 20 MG, TABLET, ORAL, AVKARE, 1000 ea. BOTTLE Cancele d [id number] : 2023 0 Pharmac y Data Transac tion Service Facilit y FUROSEMIDE (furosemide ), 20 MG, TABLET, ORAL, AVKARE, 1000 ea. BOTTLE Active [id number] 4 2023 45 Pharmac y Data Transac tion Service Facilit y LEVALBUTERO L HCL (levalbuter ol HCl), 1.25MG/3ML, VIAL-NEB, INHALATION, AMNEAL PHARMACE, 3 ml VIAL Cancele d [id number] : 2023 0 Pharmac y Data Transac tion Service Facilit y LEVALBUTERO L HCL (levalbuter ol HCl), 1.25MG/3ML, VIAL-NEB, INHALATION, TEVA [place], 3 ml VIAL Cancele d [id number] 4 [id number] : 2023 0 Pharmac y Data Transac tion Service Facilit y METOPROLOL SUCCINATE (metoprolol succinate), 100 MG, TAB ER 24H, ORAL, [employer] INC., 1000 ea. BOTTLE Cancele d [id number] 4 [id number] : 2023 0 Pharmac y Data Transac tion Service Facilit y METOPROLOL SUCCINATE (metoprolol succinate), 100 MG, TAB ER 24H, ORAL, [employer] 1000 ea. BOTTLE Active [id number] 4 2023 90 Pharmac y Data Transac tion Service Facilit y MULTAQ (DRONEDARON E HYDROCHLORI DE), 400 MG, TABLET, ORAL, SANOFI-AVEN TIS, 60 ea. BOTTLE Active [id number] 3 2022 180 Pharmac y Data Transac tion Service Facilit y MULTAQ (DRONEDARON E HYDROCHLORI DE), 400 MG, TABLET, ORAL, SANOFI-AVEN TIS, 60 ea. BOTTLE Active [id number] 4 2023 180 Pharmac y Data Transac tion Service Facilit y PREDNISONE (prednisone ), 10 MG, TABLET, ORAL, AMNEAL PHARMACE, 100 ea. BOTTLE Active [id number] 4 2023 60 Pharmac y Data Transac tion Service Facilit y PREDNISONE (prednisone ), 10 MG, TABLET, ORAL, AMNEAL PHARMACE, 100 ea. BOTTLE Active [id number] 4 2023 60 Pharmac y Data Transac tion Service Facilit y PREDNISONE (prednisone ), 10 MG, TABLET, ORAL, NOVITIUM/AN I PH, 100 ea. BOTTLE Active [id number] 2023 63 Pharmac y Data Transac tion Service Facilit y PREDNISONE (prednisone ), 10 MG, TABLET, ORAL, STRIDES PHARMA, 500 ea. BOTTLE Active [id number] 4 2023 120 Pharmac y Data Transac tion Service Facilit y PREDNISONE (PREDNISONE ), 20MG, TABLET, ORAL, CADISTA PHARMAC, 500 ea. BOTTLE Active [id number] 2023 8 Pharmac y Data Transac tion Service Facilit y ROFLUMILAST (roflumilas t), 500 MCG, TABLET, ORAL, NOVADOZ PHARMAC, 30 ea. BOTTLE Active [id number] 4 2023 90 Pharmac y Data Transac tion Service Facilit y TAMSULOSIN HCL (TAMSULOSIN HCL), 0.4 MG, CAP.SR 24H, ORAL, ZYDUS PHARMACEU, 1000 ea. BOTTLE Active [id number] 4 2023 180 Pharmac y Data Transac tion Service Facilit y Social History Combined list of available smoking, tobacco, and other social history from Department of Defense and Veterans Affairs facilities. Social History Type Response Date Comment Sour e This section is an empty social history section. DoD
[2024-05-28 17:13] LABS: Influenza A PCR NEGATIVE (Negative); Influenza B PCR NEGATIVE (Negative); Resp Syncy Virus RNA Qual PCR POSITIVE (Negative); SARS COV2 PCR INHOUSE NEGATIVE (Negative)
== END 2024-05-28 12:12 | disposition home or self-care (01) ==
LOC: HO.LAB 12:11
PROVIDERS: PCP Family Medicine; Visit Provider Physician Assistant
DX: Z13.89 Encounter for screening for other disorder (principal)
CPT/HCPCS: 0241U; 99212

== ENCOUNTER 2024-05-28 12:11 | Outpatient (AMB) | payer MEDICARE, OTHER, SELFPAY ==
--- OUTSIDE RECORDS SUMMARY | 2024-05-28 13:06 | XMS_ITS | Patient Health Record ---
Author Organization [facility] Address [address] [place] [id number] Care Team Providers Care Family Resource Specialist Name Role Phone Gin Correa MD Primary Care Provider Kwame Jackson [phone] ALLERGIES No Known Allergies REASON FOR REFERRAL No Information MEDICATIONS Medication SIG (Take, Route, Frequency, Duration) Notes Start Date End Date Status Ipratropium-Albuterol 0.5-2.5 (3) MG/3ML 3 ml Inhalation every 6 hrs Active Tiotropium [place]-Olodaterol 2.5-2.5 MCG/ACT 2 puffs Inhalation Once a [...] malignant neoplasm of colon (Z12.11) Active confirmed 841775860 Problem History of adenomatous polyp of colon (Z86.010) Active confirmed 109458427 Problem Watters's esophagus without dysplasia (K22.70) Active confirmed 464175068 Problem Preprocedural examination (Z01.818) Active confirmed 579563230 Problem Gastroesophageal reflux disease, esophagitis presence not specified (K21.9) Active confirmed 258891530 Problem Long-term use of aspirin therapy (Z79.82) Active confirmed 620498670 Problem 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) Active confirmed Watters esophagus (787641304) Problem Diverticulosis of colon (K57.30) Active confirmed Diverticulosi s of colon (689027850) PLAN OF TREATMENT Pending Test Test Name [...] MA [address] [place] [address] [id number] MARIAH BAKER Self - patient is the insured [employer] [address] [place] [address] [id number] MARIAH BAKER Self - patient is the insured MEDICAL (GENERAL) HISTORY Medical History History ICD Code Colonoscopy 10/08/2005-2 tub ular adenomas removed- 1 in the rectum was > 1 cm and with high grade dysplasia---neg. colonoscopy in 07/2012 except for diverticulosis and hemorrhoids Denies DE,DM,CVA,renal disease COPD/Asthma GERD-EGD 09/2017 with small HH and Adair t's esophagus, no dysplasia BPH Sleep apnea--uses CPAP Colonoscopy 09/2017 with tubular adenomas removed Surgical History Surgery Date(Month/Year) Bilateral rotator cuff surgery x 2 Appendectomy Cataracts Left hip replacment 05/2019
--- OUTSIDE RECORDS SUMMARY | 2024-05-28 13:06 | XMS_ITS | Continuity of Care Document ---
Author Name [facility] Organization [facility] Care Team Providers Care Plaster Tender Name Role Phone [facility] Unavailable Unavailable Medications Combined list of outpatient [...] INHALATION, LUPIN PHARMACEU, 8.5 g CANISTER Active [id number] 2023 8.5 Pharmac y Data Transac tion Service Facilit y AMLODIPINE BESYLATE (AMLODIPINE BESYLATE), 5 MG, TABLET, ORAL, [employer], 1000 ea. BOTTLE Active [id number] 4 2023 90 Pharmac y Data Transac tion Service Facilit y ARFORMOTERO L TARTRATE (arformoter ol tartrate), 15MCG/2ML, VIAL-NEB, INHALATION, LIFESTAR PHARMA, 2 ml VIAL Active [id number] 4 2023 360 Pharmac y Data Transac tion Service Facilit y Benzonatate ([employer]) 100 CAPSULE in 1 BOTTLE Active [id number] 09/07/19 2 4 2023 30 Pharmac y Data Transac tion Service Facilit y BUDESONIDE (budesonide ), 0.5 MG/2ML, AMPUL-NEB, INHALATION, EXELAN PHARMACE, 2 ml AMPUL Active [id number] 4 2023 360 Pharmac y Data Transac tion Service Facilit y BUDESONIDE (budesonide ), 0.5 MG/2ML, AMPUL-NEB, INHALATION, EXELAN PHARMACE, 2 ml AMPUL Active [id number] 4 2023 360 Pharmac y Data Transac tion Service Facilit y BUMETANIDE (BUMETANIDE ), 0.5MG, TABLET, ORAL, [facility] [employer], 100 ea. BOTTLE Active [id number] 4 2023 30 Pharmac y Data Transac tion Service Facilit y BUMETANIDE (BUMETANIDE ), 0.5MG, TABLET, ORAL, MAR[employer]N [employer], 100 ea. BOTTLE Active [id number] 4 2023 30 Pharmac y Data Transac tion Service Facilit y Cefpodoxime Proxetil (Cefpodoxim e Proxetil), 200mg, Tablet, Oral, Sandoz, 20 Ea. Bottle Active [id number] 2023 20 Pharmac y Data Transac tion Service Facilit y DOXYCYCLINE HYCLATE (DOXYCYCLIN E HYCLATE), 100 MG, CAPSULE, ORAL, WEST-[place],I NC., 500 ea. BOTTLE Active [id number] 4 2023 20 Pharmac y Data Transac tion Service Facilit y DOXYCYCLINE MONOHYDRATE (DOXYCYCLIN E MONOHYDRATE ), 100 MG, CAPSULE, ORAL, LUPIN PHARMACEU, 50 ea. BOTTLE Active [id number] 4 2023 6 Pharmac y Data Transac tion Service Facilit y ELIQUIS (APIXABAN), 5 MG, TABLET, ORAL, BMS PRIMARYCARE , 60 ea. BOTTLE Active [id number] 4 2023 180 Pharmac y Data Transac tion Service Facilit y ELIQUIS (APIXABAN), 5 MG, TABLET, ORAL, BMS PRIMARYCARE , 60 ea. BOTTLE Active [id number] 4 2023 180 Pharmac y Data Transac tion Service Facilit y FLUAD QUAD (influenza vaccine quadrivalen t (65 yr up)/MF59C.1 /PF), 60MCG/.5ML, SYRINGE, INTRAMUSC, [employer] .5 ml SYRINGE Active [id number] 2023 0.5 Pharmac y Data Transac tion Service Facilit y FLUTICASONE PROPIONATE (FLUTICASON E PROPIONATE) , 50MCG, SPRAY SUSP, NASAL, APOTEX [place], 16 g AER W/ADAP Active [id number] 4 2023 16 Pharmac y Data Transac tion Service Facilit y FUROSEMIDE (furosemide ), 20 MG, TABLET, ORAL, AVKARE, 1000 ea. BOTTLE Cancele d [id number] : 2023 0 Pharmac y Data Transac tion Service Facilit y FUROSEMIDE (furosemide ), 20 MG, TABLET, ORAL, AVKARE, 1000 ea. BOTTLE Active [id number] 4 2023 45 Pharmac y Data Transac tion Service Facilit y LEVALBUTERO L HCL (levalbuter ol HCl), 1.25MG/3ML, VIAL-NEB, INHALATION, AMNEAL PHARMACE, 3 ml VIAL Cancele d [id number] : 2023 0 Pharmac y Data Transac tion Service Facilit y LEVALBUTERO L HCL (levalbuter ol HCl), 1.25MG/3ML, VIAL-NEB, INHALATION, TEVA [place], 3 ml VIAL Cancele d [id number] : 2023 0 Pharmac y Data Transac tion Service Facilit y METOPROLOL SUCCINATE (metoprolol succinate), 100 MG, TAB ER 24H, ORAL, [employer] 1000 ea. BOTTLE Cancele d [id number] : 2023 0 Pharmac y Data Transac tion Service Facilit y METOPROLOL SUCCINATE (metoprolol succinate), 100 MG, TAB ER 24H, ORAL, [employer] 1000 ea. BOTTLE Active [id number] 4 2023 90 Pharmac y Data Transac tion Service Facilit y MULTAQ (DRONEDARON E HYDROCHLORI DE), 400 MG, TABLET, ORAL, SANOFI-AVEN TIS, 60 ea. BOTTLE Active [id number] 2022 180 Pharmac y Data Transac tion Service Facilit y MULTAQ (DRONEDARON E HYDROCHLORI DE), 400 MG, TABLET, ORAL, SANOFI-AVEN TIS, 60 ea. BOTTLE Active [id number] 4 2023 180 Pharmac y Data Transac tion Service Facilit y PREDNISONE (prednisone ), 10 MG, TABLET, ORAL, AMNEAL PHARMACE, 100 ea. BOTTLE Active [id number] 2023 60 Pharmac y Data Transac tion Service Facilit y PREDNISONE (prednisone ), 10 MG, TABLET, ORAL, AMNEAL PHARMACE, 100 ea. BOTTLE Active [id number] 4 2023 60 Pharmac y Data Transac tion Service Facilit y PREDNISONE (prednisone ), 10 MG, TABLET, ORAL, NOVITIUM/AN I PH, 100 ea. BOTTLE Active [id number] 4 2023 63 Pharmac y Data Transac tion Service Facilit y PREDNISONE (prednisone ), 10 MG, TABLET, ORAL, STRIDES PHARMA, 500 ea. BOTTLE Active [id number] 2023 120 Pharmac y Data Transac tion Service Facilit y PREDNISONE (PREDNISONE ), 20MG, TABLET, ORAL, CADISTA PHARMAC, 500 ea. BOTTLE Active [id number] 4 2023 8 Pharmac y Data Transac tion Service Facilit y ROFLUMILAST (roflumilas t), 500 MCG, TABLET, ORAL, NOVADOZ PHARMAC, 30 ea. BOTTLE Active [id number] 2023 90 Pharmac y Data Transac tion Service Facilit y TAMSULOSIN HCL (TAMSULOSIN HCL), 0.4 MG, CAP.SR 24H, ORAL, ZYDUS PHARMACEU, 1000 ea. BOTTLE Active [id number] 4 2023 180 Pharmac y Data Transac tion Service Facilit y Social History Combined list of available smoking, tobacco, and other social history from Department of Defense and Veterans Affairs facilities. Social History Type Response Date Comment Sour e This section is an empty social history section. [employer]
[2024-05-28 13:07] VITALS: BP 114/50; PULSE 88; TEMP 37.4; O2SAT 93; BMI 32.0
--- NOTE | 2024-05-28 13:07 | MHC.OFFWIV ---
Intake Vital Signs 05/28/24 13:07 Height 5 ft 9 in Weight 217 lb BMI 32.0 BP 114/50 L Blood Pressure Location Rt brachial Position Sitting Pulse 88 Pulse Source Pulse Oximeter Temp 99.3 F Temp Source Oral Pulse Oximetry (%) 93 Oxygen Delivery Method Room Air Intake Visit Reasons: EP Cold symptoms ?Pneumonia Intake Note: Pt is here today c/o cough Patient Tobacco Use Status: Former Tobacco user Allergies watermelon [WATERMELON] Allergy (Severe, Verified 05/28/24 13:16) ANAPHYLAXIS Iodinated Contrast Media [IV CONTRAST] Allergy (Intermediate, Verified 05/28/24 13:16) LIGHT HEADED AND SHORTNESS OF BREATH HPI HPI Comments History of Present Illness Details History - The patient is a 68-year-old male presenting with worsening respiratory symptoms in the context of COPD. - He reports increased dyspnea and wheezing over the past four days, alongside decreased levels of oxygen saturation to 85%, specifically when ambulating. - The onset of these symptoms corresponds with a recent respiratory illness. Home tests for COVID-19 were negative. - A history of asthma, with daily usage of bronchodilators, including albuterol, brovana, and montelukast, is present. - He uses CPAP nightly and has a nebulizer, performing nebulization four times a day. - Oxygen therapy is used at home but is not consistently used when away. - There have been prior hospitalizations related to similar respiratory exacerbations. Physical Exam General: Cooperative, healthy appearing, comfortable and no acute distress Orientation/consciousness: Patient oriented x3 Limitations: No limitations Head: Normal to inspection Ears: Hearing grossly normal bilaterally, external ears normal and TM's normal bilaterally Nose: Normal external nose present, Normal nares present and No nasal discharge present Face and sinus: Normal facial exam and Yes sinuses nontender Mouth: Normal oral and palatal mucosa present and moist mucous membranes Throat: Yes tonsils normal, Yes uvula midline. Posterior oropharynx erythema Eyes: Appearance normal, both eyes and all related structures Neck: Normal visual inspection Respiratory: Diminished lung sounds, coarse wheezing insp/exp, slight vesicular lung sounds throughout . Normal respiratory effort, able to speak in complete sentences, Actively coughing, no respiratory distress, not tachypneic, no tripod positioning and no use of accessory muscles Cardiovascular: Regular rate and rhythm. Normal S1 and S2. Skin: No rashes or lesions noted Neuro: Patient oriented x3 Extremities: Normal to inspection and Yes no clubbing, cyanosis or edema PFSH Medical History Nocturnal hypoxia CHF (congestive heart failure) Chronic lung disease COPD with acute exacerbation Chronic lung disease Chronic lung disease Tubular adenoma of colon (~2005) COPD (chronic obstructive pulmonary disease) Pulmonary nodules RAYMOND on CPAP Chronic rhinitis Asthma-COPD overlap syndrome PAF (paroxysmal atrial fibrillation) (~2017) Echocardiogram abnormal Encounter for screening for lung cancer Edema leg Venous insufficiency of both lower extremities AC (acromioclavicular) joint arthritis BPH (benign prostatic hyperplasia) Seasonal allergies Hyperlipidemia Surgical History History of appendectomy History of esophagogastroduodenoscopy (EGD) History of total left hip replacement (~2019) History of repair of right rotator cuff (~2017) History of nasal septoplasty (~2008) History of colonoscopy History of cataract (~2009) Family History Father No problems noted. Mother CAD (coronary artery disease) CHF (congestive heart failure) HTN (hypertension) Brother No problems noted. Brother No problems noted. Sister No problems noted. Sister No problems noted. Sister Mental health disorder Son No problems noted. Son No problems noted. Social History Household Members: Spouse, Family and Children Housing: House Do you presently have visiting nurse or other home services: No Alcohol intake: current Alcohol intake frequency: holidays/special occasions only Patient Tobacco Use Status: Former Tobacco user Tobacco use type: Cigarette Years Smoked: 40 years e-Cigarette/Vaping Use: Former Use Second Hand Smoke Exposure: No Advance Directives Date on File: 10/10/22 service: Yes Current occupational status: retired Cognitive needs: No Hearing needs: No Vision needs: No Review of Systems Const All systems reviewed & are unremarkable except as noted in HPI and below Physical Exam Vital Signs: Last Vital Signs Temp 99.3 F 05/28/24 13:07 Pulse 88 05/28/24 13:07 BP 114/50 L 05/28/24 13:07 Pulse Ox 93 05/28/24 13:07 Oxygen Delivery Method Room Air 05/28/24 13:07 BMI result Body Mass Index 32.0 Assessment & Plan Assessment & Plan (1) Lower respiratory infection (e.g., bronchitis, pneumonia, pneumonitis, pulmonitis): Code(s): J22 - Unspecified acute lower respiratory infection Plan: Plan For the patient's worsening respiratory symptoms amid COPD, treatment initiation includes prednisone 50 mg daily for five days to alleviate inflammation. Due to contraindications with Multag, azithromycin will not be used; instead, antibiotics doxycycline and Augmentin are favored pending chest x-ray confirmation of pneumonia. A chest x-ray is ordered for diagnostic clarification. Continued use of at-home oxygen and nebulizer therapy are recommended, with increased dependency on bronchodilator inhalers noted. RSV infection is suspected, with a viral panel test pending, and supportive care is emphasized. Should symptoms exacerbate significantly, emergency intervention is advised, and further follow-up decisions will be guided by the results of pending tests. My interpretation of CXR is slight patchy bibasilar opacities, will treat for CAP. Patient was informed and verbally consented to the use of an ambient scribe for clinic note documentation during this visit Orders: Orders SARS-CoV2/FLU/RSV Today J22 - Unspecified acute lower respiratory infection XR chest 2V Today R05.9 - Cough, unspecified Medications: New prednisone 50 mg PO QAM 5 tabs 0RF amoxicillin-pot clavulanate 875-125 mg 1 tab PO Q12H 14 tabs 0RF doxycycline hyclate 100 mg PO BID 14 tabs 0RF Coding Level of Care Code Est Pt Level 4 (89751) Diagnoses Lower respiratory infection (e.g., bronchitis, pneumonia, pneumonitis, pulmonitis) J22
== END 2024-05-28 13:48 | disposition home or self-care (01) ==
PROVIDERS: PCP Family Medicine; Visit Provider Physician Assistant
DX: J22 Unspecified acute lower respiratory infection (principal)

== ENCOUNTER 2024-05-28 13:37 | Outpatient (REF) | payer MEDICARE, OTHER, SELFPAY ==
--- NOTE | ~2024-05-28 | XR_ITS ---
EXAMINATION: XR CHEST CLINICAL INFORMATION: R05.9 - Cough, unspecified COMPARISON: Chest 01/13/2024 TECHNIQUE: 2 views of the chest were obtained. FINDINGS: Lungs are well-expanded and clear acute process. The heart size and pulmonary vascularity is normal. No gross bony abnormality seen. XR/XR chest 2V IMPRESSION: Unremarkable chest exam. No change from 01/13/2024 Electronically signed by: Emmett Gottlieb MD 05/28/2024 02:02 PM EST
--- OUTSIDE RECORDS SUMMARY | 2024-05-28 14:52 | XMS_ITS | Continuity of Care Document ---
Author Name [facility] Organization [facility] Care Team Providers Care Egg Processor Name Role Phone [facility] Unavailable Unavailable Medications Combined list of outpatient [...] INHALATION, LUPIN PHARMACEU, 8.5 g CANISTER Active [id number] 4 2023 8.5 Pharmac y Data Transac tion Service Facilit y AMLODIPINE BESYLATE (AMLODIPINE BESYLATE), 5 MG, TABLET, ORAL, [employer], 1000 ea. BOTTLE Active [id number] 4 2023 90 Pharmac y Data Transac tion Service Facilit y ARFORMOTERO L TARTRATE (arformoter ol tartrate), 15MCG/2ML, VIAL-NEB, INHALATION, LIFESTAR PHARMA, 2 ml VIAL Active [id number] 4 2023 360 Pharmac y Data Transac tion Service Facilit y Benzonatate ([employer]) 100 CAPSULE in 1 BOTTLE Active [id number] 09/07/19 2 4 2023 30 Pharmac y Data Transac tion Service Facilit y BUDESONIDE (budesonide ), 0.5 MG/2ML, AMPUL-NEB, INHALATION, EXELAN PHARMACE, 2 ml AMPUL Active [id number] 4 2023 360 Pharmac y Data Transac tion Service Facilit y BUDESONIDE (budesonide ), 0.5 MG/2ML, AMPUL-NEB, INHALATION, EXELAN PHARMACE, 2 ml AMPUL Active [id number] 4 2023 360 Pharmac y Data Transac tion Service Facilit y BUMETANIDE (BUMETANIDE ), 0.5MG, TABLET, ORAL, [facility], 100 ea. BOTTLE Active [id number] 4 2023 30 Pharmac y Data Transac tion Service Facilit y BUMETANIDE (BUMETANIDE ), 0.5MG, TABLET, ORAL, [facility], 100 ea. BOTTLE Active [id number] 2023 30 Pharmac y Data Transac tion Service Facilit y Cefpodoxime Proxetil (Cefpodoxim e Proxetil), 200mg, Tablet, Oral, Sandoz, 20 Ea. Bottle Active [id number] 2023 20 Pharmac y Data Transac tion Service Facilit y DOXYCYCLINE HYCLATE (DOXYCYCLIN E HYCLATE), 100 MG, CAPSULE, ORAL, WEST-OLVERA,I NC., 500 ea. BOTTLE Active [id number] 4 2023 20 Pharmac y Data Transac tion Service Facilit y DOXYCYCLINE MONOHYDRATE (DOXYCYCLIN E MONOHYDRATE ), 100 MG, CAPSULE, ORAL, LUPIN PHARMACEU, 50 ea. BOTTLE Active [id number] 4 2023 6 Pharmac y Data Transac tion Service Facilit y ELIQUIS (APIXABAN), 5 MG, TABLET, ORAL, BMS PRIMARYCARE , 60 ea. BOTTLE Active [id number] 4 2023 180 Pharmac y Data Transac tion Service Facilit y ELIQUIS (APIXABAN), 5 MG, TABLET, ORAL, BMS PRIMARYCARE , 60 ea. BOTTLE Active [id number] 4 2023 180 Pharmac y Data Transac tion Service Facilit y FLUAD QUAD (influenza vaccine quadrivalen t (65 yr up)/MF59C.1 /PF), 60MCG/.5ML, SYRINGE, INTRAMUSC, [employer] INC., .5 ml SYRINGE Active [id number] 3 2023 0.5 Pharmac y Data Transac tion Service Facilit y FLUTICASONE PROPIONATE (FLUTICASON E PROPIONATE) , 50MCG, SPRAY SUSP, NASAL, APOTEX [place], 16 g AER W/ADAP Active [id number] 4 2023 16 Pharmac y Data Transac tion Service Facilit y FUROSEMIDE (furosemide ), 20 MG, TABLET, ORAL, AVKARE, 1000 ea. BOTTLE Cancele d [id number] : 2023 0 Pharmac y Data Transac tion Service Facilit y FUROSEMIDE (furosemide ), 20 MG, TABLET, ORAL, AVKARE, 1000 ea. BOTTLE Active [id number] 4 2023 45 Pharmac y Data Transac tion Service Facilit y LEVALBUTERO L HCL (levalbuter ol HCl), 1.25MG/3ML, VIAL-NEB, INHALATION, AMNEAL PHARMACE, 3 ml VIAL Cancele d [id number] : 2023 0 Pharmac y Data Transac tion Service Facilit y LEVALBUTERO L HCL (levalbuter ol HCl), 1.25MG/3ML, VIAL-NEB, INHALATION, TEVA [place], 3 ml VIAL Cancele d [id number] : 2023 0 Pharmac y Data Transac tion Service Facilit y METOPROLOL SUCCINATE (metoprolol succinate), 100 MG, TAB ER 24H, ORAL, [employer] 1000 ea. BOTTLE Cancele d [id number] : 2023 0 Pharmac y Data Transac tion Service Facilit y METOPROLOL SUCCINATE (metoprolol succinate), 100 MG, TAB ER 24H, ORAL, [employer] INC., 1000 ea. BOTTLE Active [id number] 4 2023 90 Pharmac y Data Transac tion Service Facilit y MULTAQ (DRONEDARON E HYDROCHLORI DE), 400 MG, TABLET, ORAL, SANOFI-AVEN TIS, 60 ea. BOTTLE Active [id number] 3 2022 180 Pharmac y Data Transac tion Service Facilit y MULTAQ (DRONEDARON E HYDROCHLORI DE), 400 MG, TABLET, ORAL, SANOFI-AVEN TIS, 60 ea. BOTTLE Active [id number] 4 2023 180 Pharmac y Data Transac tion Service Facilit y PREDNISONE (prednisone ), 10 MG, TABLET, ORAL, AMNEAL PHARMACE, 100 ea. BOTTLE Active [id number] 2023 60 Pharmac y Data Transac tion Service Facilit y PREDNISONE (prednisone ), 10 MG, TABLET, ORAL, AMNEAL PHARMACE, 100 ea. BOTTLE Active [id number] 2023 60 Pharmac y Data Transac tion Service Facilit y PREDNISONE (prednisone ), 10 MG, TABLET, ORAL, NOVITIUM/AN I PH, 100 ea. BOTTLE Active [id number] 2023 63 Pharmac y Data Transac tion Service Facilit y PREDNISONE (prednisone ), 10 MG, TABLET, ORAL, STRIDES PHARMA, 500 ea. BOTTLE Active [id number] 2023 120 Pharmac y Data Transac tion Service Facilit y PREDNISONE (PREDNISONE ), 20MG, TABLET, ORAL, CADISTA PHARMAC, 500 ea. BOTTLE Active [id number] 4 2023 8 Pharmac y Data Transac tion Service Facilit y ROFLUMILAST (roflumilas t), 500 MCG, TABLET, ORAL, NOVADOZ PHARMAC, 30 ea. BOTTLE Active [id number] 4 2023 90 Pharmac y Data Transac tion Service Facilit y TAMSULOSIN HCL (TAMSULOSIN HCL), 0.4 MG, CAP.SR 24H, ORAL, ZYDUS PHARMACEU, 1000 ea. BOTTLE Active [id number] 2023 180 Pharmac y Data Transac tion Service Facilit y Social History Combined list of available smoking, tobacco, and other social history from Department of Defense and Veterans Affairs facilities. Social History Type Response Date Comment Sour e This section is an empty social history section. DoD
== END 2024-05-28 13:38 | disposition home or self-care (01) ==
LOC: HO.HMGCX 13:37
PROVIDERS: PCP Family Medicine; Visit Provider Physician Assistant
DX: R05.9 Cough, unspecified (principal); J22 Unspecified acute lower respiratory infection
CPT/HCPCS: 0241U; 71046; 99212

== ENCOUNTER → 2024-05-28 13:41 | Outpatient (BNV) | payer MEDICARE, OTHER, SELFPAY | PROVIDERS: PCP Family Medicine; Visit Provider Radiology Diagnostic Radiology | DX: R05.9 Cough, unspecified (principal) | CPT/HCPCS: 71046 ==

== ENCOUNTER 2024-06-12 12:07 | Outpatient (REF) | payer MEDICARE, OTHER, SELFPAY ==
--- OUTSIDE RECORDS SUMMARY | 2024-06-12 14:14 | XMS_ITS | Continuity of Care Document ---
Author Name [facility] Organization [facility] Care Team Providers Care Ore Grader Name Role Phone [facility] Unavailable Unavailable Medications Combined list of outpatient [...] INHALATION, LUPIN PHARMACEU, 8.5 g CANISTER Active [id number] 4 2023 8.5 Pharmac y Data Transac tion Service Facilit y AMLODIPINE BESYLATE (AMLODIPINE BESYLATE), 5 MG, TABLET, ORAL, [employer], 1000 ea. BOTTLE Active [id number] 4 2023 90 Pharmac y Data Transac tion Service Facilit y ARFORMOTERO L TARTRATE (arformoter ol tartrate), 15MCG/2ML, VIAL-NEB, INHALATION, LIFESTAR PHARMA, 2 ml VIAL Active [id number] 4 2023 360 Pharmac y Data Transac tion Service Facilit y Benzonatate ([employer]) 100 CAPSULE in 1 BOTTLE Active [id number] 09/07/19 2 4 2023 30 Pharmac y Data Transac tion Service Facilit y BUDESONIDE (budesonide ), 0.5 MG/2ML, AMPUL-NEB, INHALATION, EXELAN PHARMACE, 2 ml AMPUL Active [id number] 4 2023 360 Pharmac y Data Transac tion Service Facilit y BUDESONIDE (budesonide ), 0.5 MG/2ML, AMPUL-NEB, INHALATION, EXELAN PHARMACE, 2 ml AMPUL Active [id number] 4 2023 360 Pharmac y Data Transac tion Service Facilit y BUMETANIDE (BUMETANIDE ), 0.5MG, TABLET, ORAL, [facility], 100 ea. BOTTLE Active [id number] 4 2023 30 Pharmac y Data Transac tion Service Facilit y BUMETANIDE (BUMETANIDE ), 0.5MG, TABLET, ORAL, [facility], 100 ea. BOTTLE Active [id number] 2023 30 Pharmac y Data Transac tion Service Facilit y Cefpodoxime Proxetil (Cefpodoxim e Proxetil), 200mg, Tablet, Oral, Sandoz, 20 Ea. Bottle Active [id number] 4 2023 20 Pharmac y Data Transac tion Service Facilit y DOXYCYCLINE HYCLATE (DOXYCYCLIN E HYCLATE), 100 MG, CAPSULE, ORAL, WEST-OLVERA,I NC., 500 ea. BOTTLE Active [id number] 4 2023 20 Pharmac y Data Transac tion Service Facilit y DOXYCYCLINE MONOHYDRATE (DOXYCYCLIN E MONOHYDRATE ), 100 MG, CAPSULE, ORAL, LUPIN PHARMACEU, 50 ea. BOTTLE Active [id number] 4 2023 6 Pharmac y Data Transac tion Service Facilit y ELIQUIS (APIXABAN), 5 MG, TABLET, ORAL, BMS PRIMARYCARE , 60 ea. BOTTLE Active [id number] 4 2023 180 Pharmac y Data Transac tion Service Facilit y ELIQUIS (APIXABAN), 5 MG, TABLET, ORAL, BMS PRIMARYCARE , 60 ea. BOTTLE Active [id number] 4 2023 180 Pharmac y Data Transac tion Service Facilit y FLUAD QUAD (influenza vaccine quadrivalen t (65 yr up)/MF59C.1 /PF), 60MCG/.5ML, SYRINGE, INTRAMUSC, [employer] INC., .5 ml SYRINGE Active [id number] 3 2023 0.5 Pharmac y Data Transac tion Service Facilit y FLUTICASONE PROPIONATE (FLUTICASON E PROPIONATE) , 50MCG, SPRAY SUSP, NASAL, APOTEX [place], 16 g AER W/ADAP Active [id number] 4 2023 16 Pharmac y Data Transac tion Service Facilit y FUROSEMIDE (furosemide ), 20 MG, TABLET, ORAL, AVKARE, 1000 ea. BOTTLE Cancele d [id number] : 2023 0 Pharmac y Data Transac tion Service Facilit y FUROSEMIDE (furosemide ), 20 MG, TABLET, ORAL, AVKARE, 1000 ea. BOTTLE Active [id number] 4 2023 45 Pharmac y Data Transac tion Service Facilit y LEVALBUTERO L HCL (levalbuter ol HCl), 1.25MG/3ML, VIAL-NEB, INHALATION, AMNEAL PHARMACE, 3 ml VIAL Cancele d [id number] : 2023 0 Pharmac y Data Transac tion Service Facilit y LEVALBUTERO L HCL (levalbuter ol HCl), 1.25MG/3ML, VIAL-NEB, INHALATION, TEVA [place], 3 ml VIAL Cancele d [id number] 4 [id number] : 2023 0 Pharmac y Data Transac tion Service Facilit y METOPROLOL SUCCINATE (metoprolol succinate), 100 MG, TAB ER 24H, ORAL, [employer] INC[employer] 1000 ea. BOTTLE Cancele d [id number] : 2023 0 Pharmac y Data Transac tion Service Facilit y METOPROLOL SUCCINATE (metoprolol succinate), 100 MG, TAB ER 24H, ORAL, [employer] INC[employer] 1000 ea. BOTTLE Active [id number] 4 2023 90 Pharmac y Data Transac tion Service Facilit y MULTAQ (DRONEDARON E HYDROCHLORI DE), 400 MG, TABLET, ORAL, SANOFI-AVEN TIS, 60 ea. BOTTLE Active [id number] 3 2022 180 Pharmac y Data Transac tion Service Facilit y MULTAQ (DRONEDARON E HYDROCHLORI DE), 400 MG, TABLET, ORAL, SANOFI-AVEN TIS, 60 ea. BOTTLE Active [id number] 2023 180 Pharmac y Data Transac tion Service Facilit y PREDNISONE (prednisone ), 10 MG, TABLET, ORAL, AMNEAL PHARMACE, 100 ea. BOTTLE Active [id number] 2023 60 Pharmac y Data Transac tion Service Facilit y PREDNISONE (prednisone ), 10 MG, TABLET, ORAL, AMNEAL PHARMACE, 100 ea. BOTTLE Active [id number] 2023 60 Pharmac y Data Transac tion Service Facilit y PREDNISONE (prednisone ), 10 MG, TABLET, ORAL, NOVITIUM/AN I PH, 100 ea. BOTTLE Active [id number] 2023 63 Pharmac y Data Transac tion Service Facilit y PREDNISONE (prednisone ), 10 MG, TABLET, ORAL, STRIDES PHARMA, 500 ea. BOTTLE Active [id number] 4 2023 120 Pharmac y Data Transac tion Service Facilit y PREDNISONE (PREDNISONE ), 20MG, TABLET, ORAL, CADISTA PHARMAC, 500 ea. BOTTLE Active [id number] 2023 8 Pharmac y Data Transac tion Service Facilit y ROFLUMILAST (roflumilas t), 500 MCG, TABLET, ORAL, NOVADOZ PHARMAC, 30 ea. BOTTLE Active [id number] 4 2023 90 Pharmac y Data Transac tion Service Facilit y TAMSULOSIN HCL (TAMSULOSIN HCL), 0.4 MG, CAP.SR 24H, ORAL, ZYDUS PHARMACEU, 1000 ea. BOTTLE Active [id number] 2023 180 Pharmac y Data Transac tion Service Facilit y Social History Combined list of available smoking, tobacco, and other social history from Department of Defense and Veterans Affairs facilities. Social History Type Response Date Comment Sour e This section is an empty social history section. DoD
--- OUTSIDE RECORDS SUMMARY | 2024-06-12 14:14 | XMS_ITS | Patient Health Record ---
Author Organization [facility] Address [address] [place] [id number] Care Team Providers Care Quartz Cutter Name Role Phone Gin Correa MD Primary Care Provider Kwame Jackson [phone] ALLERGIES No Known Allergies REASON FOR REFERRAL No Information MEDICATIONS Medication SIG (Take, Route, Frequency, Duration) Notes Start Date End Date Status Ipratropium-Albuterol 0.5-2.5 (3) MG/3ML 3 ml Inhalation every 6 hrs Active Tiotropium Ross-Olodaterol 2.5-2.5 MCG/ACT 2 puffs Inhalation Once a [...] malignant neoplasm of colon (Z12.11) Active confirmed 580921566 Problem History of adenomatous polyp of colon (Z86.010) Active confirmed 662410648 Problem Watters's esophagus without dysplasia (K22.70) Active confirmed 254408006 Problem Preprocedural examination (Z01.818) Active confirmed 876270222 Problem Gastroesophageal reflux disease, esophagitis presence not specified (K21.9) Active confirmed 509651550 Problem Long-term use of aspirin therapy (Z79.82) Active confirmed 844658698 Problem 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) Active confirmed Watters esophagus (570456198) Problem Diverticulosis of colon (K57.30) Active confirmed Diverticulosi s of colon (833960963) PLAN OF TREATMENT Pending Test Test Name [...] [place] [address] [place] [address] [id number] MARIAH BAKER Self - patient is the insured [employer] [facility] [employer] [address] [place] [address] [id number] MARIAH BAKER Self - patient is the insured MEDICAL (GENERAL) HISTORY Medical History History ICD Code Colonoscopy 10/08/2005-2 tub ular adenomas removed- 1 in the rectum was > 1 cm and with high grade dysplasia---neg. colonoscopy in 07/2012 except for diverticulosis and hemorrhoids Denies TN,DM,CVA,renal disease COPD/Asthma GERD-EGD 09/2017 with small HH and Adair t's esophagus, no dysplasia BPH Sleep apnea--uses CPAP Colonoscopy 09/2017 with tubular adenomas removed Surgical History Surgery Date(Month/Year) Bilateral rotator cuff surgery x 2 Appendectomy Cataracts Left hip replacment 05/2019
--- OUTSIDE RECORDS SUMMARY | 2024-06-12 14:14 | XMS_ITS | Continuity of Care Document ---
Author Organization [facility] Address [address] [place] [address]- Care Team Providers Care Surgical Pathologist Name Role Phone Rahul Becerra DO Primary Care Physician [id number] Date(s): 10/11/22 - 06/09/[address] [address]- Encounter Diagnosis Allergic rhinitis, unspecified(Final) - Severe persistent asthma, uncomplicated(Final) - Nasal polyp, unspecified(Final) - Chronic obstructive pulmonary disease, unspecified(Final) - Personal history of nicotine dependence(Final) - Personal history of immunosuppression therapy(Final) - alf (current) use of systemic steroids(Final) - 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 (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(Final) - alf (current) use of anticoagulants(Final) - Other fpc (current) drug therapy(Final) - Discharge Disposition: A-D/C Home Attending Physician: Mitul Ornelas MD Admitting Physician: Mitul Ornelas MD Referring Physician: Rahul Becerra DO Encounter Type: Disch Recurring OP Allergies, Adverse Reactions, Alerts Substance Criticality Severity Reaction Reaction Severity Status Contrast Dye Nausea and vomi ting Dizziness Active Medications albuterol CFC free 90 mcg/inh inhalation aerosol 2, puffs, Inhalation, 4 times a day, PRN, # 8 Gm, Refills 0, Maintenance, 06/21/22 9:35:00 AM EST, Aerosol Start Date: 06/21/22 Status: Ordered Quantity: 8.0 Unit: g Repeat number: 1 aspirin 81 mg oral delayed release tablet 81 mg, 1, tablet, By Mouth, Daily, # 30 tablet, Refills 0, Maintenance, 06/21/22 9:32:00 AM EST, Partial fill upon patient request if the prescription is for a schedule II opioid drug. Start Date: 06/21/22 Status: Ordered Quantity: 30.0 Unit: tablet Repeat number: 1 atorvastatin 80 mg oral tablet 1 tablet = 80 mg, By Mouth, Daily, # 30 tablet, 5 Refills, Maintenance, 06/21/22 9:30:00 AM EST, Tablet, Partial fill upon patient request if the prescription is for a schedule II opioid drug. Start Date: 06/21/22 Status: Ordered Quantity: 30.0 Unit: tablet Repeat number: 1 Brovana 15 mcg/2 mL inhalation solution 1 each, Neb, 2 times a day, # 60 each, 0 Refills, Maintenance, 06/21/22 9:31:00 AM EST, Solution, Partial fill upon patient request if the prescription is for a schedule II opioid drug. Start Date: 06/21/22 Status: Ordered Quantity: 60.0 Unit: each Repeat number: 1 budesonide 0.5 mg/2 mL inhalation suspension 0.5 mg, 2, mL, Neb, 2 times a day, # 120 mL, Refills 0, Maintenance, 06/21/22 9:31:00 AM EST, Suspension Start Date: 06/21/22 Status: Ordered Quantity: 120.0 Unit: mL Repeat number: 1 cephalexin monohydrate 250 mg oral capsule 1 capsule = 250 mg, By Mouth, Every 12 hours, 0 Refills, Maintenance, 10/11/22 10:15:00 AM EDT, Capsule, Partial fill upon patient request if the prescription is for a schedule II opioid drug. Start Date: 10/11/22 Status: Ordered Repeat number: 1 Daliresp 500 mcg oral tablet 1 tablet = 500 mcg, By Mouth, Daily, 0 Refills, Maintenance, 06/21/22 9:32:00 AM EST, Partial fill upon patient request if the prescription is for a schedule II opioid drug. Start Date: 06/21/22 Status: Ordered Repeat number: 1 Eliquis 5 mg oral tablet 1 tablet = 5 mg, By Mouth, 2 times a day, 0 Refills, Maintenance, 06/21/22 9:32:00 AM EST, Partial fill upon patient request if the prescription is for a schedule II opioid drug. Start Date: 06/21/22 Status: Ordered Repeat number: 1 fluticasone propionate Inhalation, 0 Refills, Maintenance, 06/21/22 9:32:00 AM EST, Partial fill upon patient request if theprescription is for a schedule II opioid drug. Start Date: 06/21/22 Status: Ordered Repeat number: 1 Lasix 20 mg oral tablet 1, capsule, By Mouth, Once, # 1 tablet, Refills 0, Maintenance, 06/21/22 9:33:00 AM EST, Partial fillupon patient request if the prescription is for a schedule II opioid drug. Start Date: 06/21/22 Status: Ordered Quantity: 1.0 Unit: tablet Repeat number: 1 levalbuterol 0.63 mg/3 mL inhalation solution 3 mL = 0.63 mg, Neb, 3 times a day, 0 Refills, Maintenance, 06/21/22 9:33:00 AM EST, Partial fill upon patient request if the prescription is for a schedule II opioid drug. Start Date: 06/21/22 Status: Ordered Repeat number: 1 metoprolol (OP) 0 Refills, Maintenance, 2 Start Date: 06/20/23 Status: Ordered Repeat number: 1 Multaq 400 mg oral tablet 1 tablet = 400 mg, By Mouth, 2 times a day, # 60 tablet, 0 Refills, Maintenance, 06/21/22 9:34:00 AM EST, Tablet, Partial fill upon patient request if the prescription is for a schedule II opioid drug. Start Date: 06/21/22 Status: Ordered Quantity: 60.0 Unit: tablet Repeat number: 1 Singulair 10 mg oral tablet 10 mg, 1, tablet, By Mouth, Daily, Refills 0, Maintenance, 06/21/22 9:34:00 AM EST, Partial fill uponpatient request if the prescription is for a schedule II opioid drug. Start Date: 06/21/22 Status: Ordered Repeat number: 1 tamsulosin 0.4 mg oral capsule 0.4 mg, 1, capsule, By Mouth, Daily, Refills 0, Maintenance, 06/21/22 9:35:00 AM EST, Partial fill upon patient request if the prescription is for a schedule II opioid drug. Start Date: 06/21/22 Status: Ordered Repeat number: 1 Tezspire = 210 mg, Subcutaneous Infusion, 0 Refills, Maintenance, 06/21/22 9:35:00 AM EST, Partial fill upon patient request if the prescription is for a schedule II opioid drug. Start Date: 06/21/22 Status: Ordered Repeat number: 1 Wellbutrin 75 mg oral tablet = 75 mg, By Mouth, 3 times a day, 0 Refills, Maintenance, 06/21/22 9:31:00 AM EST, Partial fill upon patient request if the prescription is for a schedule II opioid drug. Start Date: 06/21/22 Status: Ordered Repeat number: 1 Problem List Condition Confirmation Course Effective Dates Status Health St atus Informant Obese class I Confirmed Active Vital Signs Most recent to oldest [Reference Range]: 1 2 3 Height 172.70 cm (05/21/24 10:13 AM) 172.70 cm (04/23/24 10:25 AM) 172.70 cm (03/26/24 9:58 AM) Weight 103.1 kg (05/21/24 10:13 AM) 104.5 kg (10/10/23 10:05 AM) 98.1 kg (06/20/23 10:18 AM) Oxygen Saturation [94-100 %] 95 % (05/21/24 10: AM) 96 % (04/23/24 10:25 AM) 98 % (03/26/24 9:58 AM) Pulse Rate [55-90 bpm] 80 bpm (05/21/24 10:13 AM) 106 bpm *H* (04/23/24 10:25 AM) 89 bpm (03/26/24 9:58 AM) Body Mass Index [18.5-24.99 kg/m2] 34.57 kg/m2 *>HHI* (05/21/24 10:13 AM) 35.04 kg/m2 *>HHI* (10/10/23 10:05 AM) Blood Pressure [90-138/55-84 mm Hg] 153/57mm Hg *H* (05/21/24 10:13 AM) 123/51mm Hg (04/23/24 10:25 AM) 155/49mm Hg *H* (03/26/24 9:58 AM) Respiratory Rate [16-30 br/min] 18 br/min (05/21/24 10:13 AM) 20 br/min (04/23/24 10:25 AM) 20 br/min (03/26/24 9:58 AM) Temperature [96.8-100.4 DegF] 98.3 DegF (05/21/24 10:13 AM) 97.6 DegF (04/23/24 10:25 AM) 97.7 DegF (03/26/24 9:58 AM) Mode of Delivery (Oxygen) Room air (05/21/24 10:13 AM) Room air (04/23/24 10:25 AM) Room air (03/26/24 9:58 AM) Blood pressure sites Arm, left (03/26/24 9:58 AM) Arm, left (02/27/24 9:47 AM) Arm, left (12/05/23 11:23 AM) Temperature Route Temporal (05/21/24 10:13 AM) Temporal (04/23/24 10:25 AM) Temporal (03/26/24 9:58 AM) Dry Weight 98.6 kg (03/26/24 9:58 AM) 97.9 kg (02/27/24 9:47 AM) 102.1 kg (01/30/24 10:10 AM) Weight Obtained Via Standing scale (10/10/23 10:05 AM) Dry Weight Obtained Via Standing scale (01/02/24 9:57 AM) Standing scale (10/10/23 10:05 AM) Standing scale (08/15/23 10:23 AM) History and physical note * Event Display: History and Physical Hospital Authored Date: * Event Display: History and Physical Hospital Authored Date: Hospital Progress note * Brittney Rodriguez RN: PERFORM, SIGN, VERIFY Event Display: Progress Note Hospital Authored Date: Patient: MARIAH BAKER Age: 68 years Sex: Male : 1955 Associated Diagnoses: None Author: Brittney Rodriguez RN Findings Narrative/Incidental Pt admitted for Tezspire injection. Denies s/s active illness/infection. VSS. Tolerated injection well, skin wiped clean and dry after injection. Pt ambulated off unit.. * Brittney Rodriguez RN: PERFORM, SIGN, VERIFY Event Display: Progress Note Hospital Authored Date: Patient: MARIAH BAKER Age: 68 years Sex: Male : 1955 Associated Diagnoses: None Author: Brittney Rodriguez RN Findings Narrative/Incidental Pt admitted for Tezspire injection. Denies s/s active illness/infection. VSS. Tolerated injection well, skin wiped clean and dry after injection. Pt ambulated off unit.. * Brittney Rodriguez RN: PERFORM, SIGN, VERIFY Event Display: Progress Note Hospital Authored Date: Patient: MARIAH BAKER Age: 68 years Sex: Male : 1955 Associated Diagnoses: None Author: Brittney Rodriguez RN Findings Narrative/Incidental Pt admitted for Tezspire injection. Denies s/s active illness/infection. VSS. Tolerated injection well, skin wiped clean and dry after injection. Pt ambulated off unit.. Patient Care team information Care Team Personnel Name: Sandra Hamlin RN Position: S RN Member Role: Primary Care Nurse Name: Rahul Becerra DO Position: Reference Physician Member Role: PCP Address: [address] [place] [address] Telecom: Care Team Related Persons Name: OLIVIANABIL Name: SHAKILA BAKER Insurance Providers Guarantor name: ESTER Health Plan Information #: 2 Payer: [employer] A ONLY Member Number: [id number] Policy Number: NA Group Number: NA Health Plan Information #: 3 Payer: [employer] A ONLY Member Number: [id number] Policy Number: NA Group Number: NA Health Plan Information #: 1 Payer: MEDICARE PART B OUTPT Member Number: [id number] Policy Number: NA Group Number: NA
[2024-06-12 15:07] LABS: Anion Gap 14 (12-20); Blood Urea Nitrogen 21 mg/dL (9-16); Carbon Dioxide 25 mmol/L (22-29); Chloride 106 mmol/L (96-108); Estimated Glomerular Filt Rate 41; Potassium 4.1 mmol/L (3.3-5.1); Sodium 141 mmol/L (135-145)
== END 2024-06-12 12:08 | disposition home or self-care (01) ==
LOC: HO.HMGCLDS 12:07
PROVIDERS: PCP Family Medicine; Visit Provider Internal Medicine Hypertension Specialist
DX: N18.9 Chronic kidney disease, unspecified (principal); N18.4 Chronic kidney disease, stage 4 (severe); E87.1 Hypo-osmolality and hyponatremia
CPT/HCPCS: 36415; 80051; 82565; 84520

== ENCOUNTER 2024-06-15 10:12 | Outpatient (AMB) | payer MEDICARE, OTHER, SELFPAY ==
[2024-06-15 10:15] VITALS: BP 138/42; PULSE 97; O2SAT 93; BMI 31.3
--- NOTE | 2024-06-15 10:15 | HO.NEPHOV ---
Vital Signs 06/15/24 10:15 Height 5 ft 9 in Weight 212 lb BMI 31.3 BP 138/42 L Blood Pressure Location Rt brachial Position Sitting Pulse 97 Pulse Source Pulse Oximeter Pulse Oximetry (%) 93 Oxygen Delivery Method Room Air Intake Visit Reasons: Edema/ Conf Calker Required: No Accompanied by: Self / Same As Patient Allergies watermelon [WATERMELON] Allergy (Severe, Verified 06/15/24 10:17) ANAPHYLAXIS Iodinated Contrast Media [IV CONTRAST] Allergy (Intermediate, Verified 06/15/24 10:17) LIGHT HEADED AND SHORTNESS OF BREATH HPI Comments Details: . Kiran is a pleasant 68-year-old man with a history of hypertension COPD with peripheral vascular disease. He has had significantly leg edema. He was on amlodipine which has been discontinued recently. He is on Lasix 20 mg a day. He has underlying CKD with a serum creatinine of around 1.2-1.3 at baseline. Recently there has been a bump in serum creatinine up to 1.6. He was on lisinopril 20 mg a day which has been discontinued few months ago. The diuretics are being adjusted based on the creatinine but he continues to have leg edema and hence this referral. He is history of COPD and obstructive sleep apnea. Was recently hospitalized for exacerbation of COPD. He is currently on prednisone. He had an echocardiogram which did not reveal any significant right sided heart failure. He has a significant history of smoking for almost 40 years 1-2 packs per day he quit smoking about 15 years ago. Review of system was positive for significantly leg edema. He had increased urinary frequency which has resolved. No nausea vomiting no chest pain no palpitations no fever no rash 10/28/2023. He admits taking Bumex for for a week. He took it for few days. Repeat serum creatinine was 1.62. No increase in BUN. He continues her leg edema. Urine did not reveal any significant proteinuria 11/26/2023. He was on Bumex 0.5 mg once a day. However he felt that the leg edema was worsening. He went to the ER and he had more swelling. Bumex was increased to 1 mg a day. However is still believes that the edema gets worse with a high dose of Bumex. He has significant redness in his legs which is pain Doppler did not reveal any DVTs 12/12/2023. After course of antibiotics the erythema has improved. He is still has edema. He is tolerating Lasix well. He is on a course of prednisone prescribed by road tester. 01/14/24 Recently in [facility] for pneumonia;Treated with antibiotics LEgs with edema Erythema improved with antibiotics 02/03/2024 Continues have leg edema. He was recently in urgent care. No changes were made to diuretics. 02/18/2024. After addition of metolazone he has lost about 12 lb. He did go to the ER with low blood pressure. No changes were made at the time. 03/31/24 Still with edema weight is up 06/15/24 Doing better EDema under control Cr at 1.6 REcently had flu Now on Lasix 40 mg QOD [facility] Medical History Nocturnal hypoxia CHF (congestive heart failure) Chronic lung disease COPD with acute exacerbation Chronic lung disease Chronic lung disease Tubular adenoma of colon (~2005) COPD (chronic obstructive pulmonary disease) Pulmonary nodules RAYMOND on CPAP Chronic rhinitis Asthma-COPD overlap syndrome PAF (paroxysmal atrial fibrillation) (~2017) Echocardiogram abnormal Encounter for screening for lung cancer Edema leg Venous insufficiency of both lower extremities AC (acromioclavicular) joint arthritis BPH (benign prostatic hyperplasia) Seasonal allergies Hyperlipidemia Surgical History History of appendectomy History of esophagogastroduodenoscopy (EGD) History of total left hip replacement (~2019) History of repair of right rotator cuff (~2017) History of nasal septoplasty (~2008) History of colonoscopy History of cataract (~2009) Family History Father No problems noted. Mother CAD (coronary artery disease) CHF (congestive heart failure) HTN (hypertension) Brother No problems noted. Brother No problems noted. Sister No problems noted. Sister No problems noted. Sister Mental health disorder Son No problems noted. Son No problems noted. Social History Household Members: Spouse, Family and Children Housing: House Do you presently have visiting nurse or other home services: No Alcohol intake: current Alcohol intake frequency: holidays/special occasions only Patient Tobacco Use Status: Former Tobacco user Tobacco use type: Cigarette Years Smoked: 40 years e-Cigarette/Vaping Use: Former Use Second Hand Smoke Exposure: No Advance Directives Date on File: 10/10/22 service: Yes Current occupational status: retired Cognitive needs: No Hearing needs: No Vision needs: No Physical Exam Vital Signs: Last Vital Signs Pulse 97 06/15/24 10:15 BP 138/42 L 06/15/24 10:15 Pulse Ox 93 06/15/24 10:15 Oxygen Delivery Method Room Air 06/15/24 10:15 BMI result Body Mass Index 31.3 Results Reviewed Nephrology Results: Sodium 141 mmol/L (135-145) 06/12/24 Potassium 4.1 mmol/L (3.3-5.1) 06/12/24 Chloride 106 mmol/L (96-108) 06/12/24 Carbon Dioxide 25 mmol/L (22-29) 06/12/24 BUN 21 mg/dL (9-16) H 06/12/24 Creatinine 1.68 mg/dL (0.5-1.4) H 06/12/24 Assessment & Plan Assessment & Plan (1) Edema leg: Comment: chronic from venous insufficiency Code(s): R60.0 - Localized edema Category: Medical (2) CKD (chronic kidney disease): Code(s): N18.9 - Chronic kidney disease, unspecified Category: Medical Qualifiers: Chronic kidney disease stage: unspecified stage Qualified Code(s): N18.9 - Chronic kidney disease, unspecified (3) Edema: Code(s): R60.9 - Edema, unspecified Category: Medical (4) Carotid stenosis, bilateral: Code(s): I65.23 - Occlusion and stenosis of bilateral carotid arteries Category: Medical (5) Hypertension: Code(s): I10 - Essential (primary) hypertension Category: Medical Qualifiers: Hypertension type: primary hypertension Qualified Code(s): I10 - Essential (primary) hypertension Plan . 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 Superimposed CHATO due to hypoperfusion in the setting of LATONIA inhibitors and diuretics. Creatinine is improved and down to 1.9 from 3.3 with cautious diuresis Renal ultrasonogram was unremarkable No significant proteinuria serum immunofixation shows IgG kappa monoclonal protein Urinary sediments are bland therefore glomerular/ interstitial disease seem unlikely Echocardiogram revealed normal right ventricular pressures without evidence of right heart failure Serum albumin was relatively low at 3.1. Mild elevation in alkaline phosphatase and ALT; repeat LFTs were normal Keep current dose of LAsix QOD Stay on low-sodium diet. Leg elevation No need for Doppler ultrasonogram at this time. would avoid calcium channel blockers like amlodipine Agree with holding LATONIA inhibitors until renal function stabilizes. . Medications: Changed From furosemide 40 mg PO DAILY 90 tabs 0RF To furosemide 40 mg PO Q OTHER DAY 90 tabs 0RF Discontinued furosemide (Lasix) Discontinued Reason: Patient no longer taking 20 mg PO DAILY@1700 60 tabs 1RF Coding Level of Care Code Est Pt Level 4 (35154) Diagnoses Edema leg R60.0 Chronic kidney disease, unspecified CKD stage N18.9 Chronic kidney disease stage: unspecified stage Edema R60.9 Carotid stenosis, bilateral I65.23 Primary hypertension I10 Hypertension type: primary hypertension
--- OUTSIDE RECORDS SUMMARY | 2024-06-15 14:48 | XMS_ITS | Continuity of Care Document ---
Author Name [facility] Organization [facility] Care Team Providers Care [employer] Name Role Phone [facility] Unavailable Unavailable Medications Combined list of outpatient [...] INHALATION, LUPIN PHARMACEU, 8.5 g CANISTER Active [id number] 4 2023 8.5 Pharmac y Data Transac tion Service Facilit y AMLODIPINE BESYLATE (AMLODIPINE BESYLATE), 5 MG, TABLET, ORAL, [employer]END [employer], 1000 ea. BOTTLE Active [id number] 4 2023 90 Pharmac y Data Transac tion Service Facilit y ARFORMOTERO L TARTRATE (arformoter ol tartrate), 15MCG/2ML, VIAL-NEB, INHALATION, LIFESTAR PHARMA, 2 ml VIAL Active [id number] 4 2023 360 Pharmac y Data Transac tion Service Facilit y Benzonatate ([employer]) 100 CAPSULE in 1 BOTTLE Active [id number] 09/07/19 2 4 2023 30 Pharmac y Data Transac tion Service Facilit y BUDESONIDE (budesonide ), 0.5 MG/2ML, AMPUL-NEB, INHALATION, EXELAN PHARMACE, 2 ml AMPUL Active [id number] 4 2023 360 Pharmac y Data Transac tion Service Facilit y BUDESONIDE (budesonide ), 0.5 MG/2ML, AMPUL-NEB, INHALATION, EXELAN PHARMACE, 2 ml AMPUL Active [id number] 4 2023 360 Pharmac y Data Transac tion Service Facilit y BUMETANIDE (BUMETANIDE ), 0.5MG, TABLET, ORAL, [facility]N [facility], 100 ea. BOTTLE Active [id number] 4 2023 30 Pharmac y Data Transac tion Service Facilit y BUMETANIDE (BUMETANIDE ), 0.5MG, TABLET, ORAL, [facility]N [facility], 100 ea. BOTTLE Active [id number] 4 2023 30 Pharmac y Data Transac tion Service Facilit y Cefpodoxime Proxetil (Cefpodoxim e Proxetil), 200mg, Tablet, Oral, Sandoz, 20 Ea. Bottle Active [id number] 4 2023 20 Pharmac y Data Transac tion Service Facilit y DOXYCYCLINE HYCLATE (DOXYCYCLIN E HYCLATE), 100 MG, CAPSULE, ORAL, WEST-OLVERA,I NC., 500 ea. BOTTLE Active [id number] 4 2023 20 Pharmac y Data Transac tion Service Facilit y DOXYCYCLINE MONOHYDRATE (DOXYCYCLIN E MONOHYDRATE ), 100 MG, CAPSULE, ORAL, LUPIN PHARMACEU, 50 ea. BOTTLE Active [id number] 4 2023 6 Pharmac y Data Transac tion Service Facilit y ELIQUIS (APIXABAN), 5 MG, TABLET, ORAL, BMS PRIMARYCARE , 60 ea. BOTTLE Active [id number] 4 2023 180 Pharmac y Data Transac tion Service Facilit y ELIQUIS (APIXABAN), 5 MG, TABLET, ORAL, BMS PRIMARYCARE , 60 ea. BOTTLE Active [id number] 4 2023 180 Pharmac y Data Transac tion Service Facilit y FLUAD QUAD (influenza vaccine quadrivalen t (65 yr up)/MF59C.1 /PF), 60MCG/.5ML, SYRINGE, INTRAMUSC, SEQIRUS[employer] INC., .5 ml SYRINGE Active [id number] 3 2023 0.5 Pharmac y Data Transac tion Service Facilit y FLUTICASONE PROPIONATE (FLUTICASON E PROPIONATE) , 50MCG, SPRAY SUSP, NASAL, APOTEX [place], 16 g AER W/ADAP Active [id number] 4 2023 16 Pharmac y Data Transac tion Service Facilit y FUROSEMIDE (furosemide ), 20 MG, TABLET, ORAL, AVKARE, 1000 ea. BOTTLE Cancele d [id number] : 2023 0 Pharmac y Data Transac tion Service Facilit y FUROSEMIDE (furosemide ), 20 MG, TABLET, ORAL, AVKARE, 1000 ea. BOTTLE Active [id number] 4 2023 45 Pharmac y Data Transac tion Service Facilit y LEVALBUTERO L HCL (levalbuter ol HCl), 1.25MG/3ML, VIAL-NEB, INHALATION, AMNEAL PHARMACE, 3 ml VIAL Cancele d [id number] : 2023 0 Pharmac y Data Transac tion Service Facilit y LEVALBUTERO L HCL (levalbuter ol HCl), 1.25MG/3ML, VIAL-NEB, INHALATION, TEVA [place], 3 ml VIAL Cancele d [id number] : 2023 0 Pharmac y Data Transac tion Service Facilit y METOPROLOL SUCCINATE (metoprolol succinate), 100 MG, TAB ER 24H, ORAL, GSMS[employer] INC., 1000 ea. BOTTLE Cancele d [id number] : 2023 0 Pharmac y Data Transac tion Service Facilit y METOPROLOL SUCCINATE (metoprolol succinate), 100 MG, TAB ER 24H, ORAL, GSMS[employer] INC., 1000 ea. BOTTLE Active [id number] 4 2023 90 Pharmac y Data Transac tion Service Facilit y MULTAQ (DRONEDARON E HYDROCHLORI DE), 400 MG, TABLET, ORAL, SANOFI-AVEN TIS, 60 ea. BOTTLE Active [id number] 3 2022 180 Pharmac y Data Transac tion Service Facilit y MULTAQ (DRONEDARON E HYDROCHLORI DE), 400 MG, TABLET, ORAL, SANOFI-AVEN TIS, 60 ea. BOTTLE Active [id number] 4 2023 180 Pharmac y Data Transac tion Service Facilit y PREDNISONE (prednisone ), 10 MG, TABLET, ORAL, AMNEAL PHARMACE, 100 ea. BOTTLE Active [id number] 4 2023 60 Pharmac y Data Transac tion Service Facilit y PREDNISONE (prednisone ), 10 MG, TABLET, ORAL, NOVITIUM/AN I PH, 100 ea. BOTTLE Active [id number] 4 2023 63 Pharmac y Data Transac tion Service Facilit y PREDNISONE (prednisone ), 10 MG, TABLET, ORAL, STRIDES PHARMA, 500 ea. BOTTLE Active [id number] 4 2023 120 Pharmac y Data Transac tion Service Facilit y PREDNISONE (PREDNISONE ), 20MG, TABLET, ORAL, CADISTA PHARMAC, 500 ea. BOTTLE Active [id number] 4 2023 8 Pharmac y Data Transac tion Service Facilit y ROFLUMILAST (roflumilas t), 500 MCG, TABLET, ORAL, NOVADOZ PHARMAC, 30 ea. BOTTLE Active [id number] 4 2023 90 Pharmac y Data Transac tion Service Facilit y TAMSULOSIN HCL (TAMSULOSIN HCL), 0.4 MG, CAP.SR 24H, ORAL, ZYDUS PHARMACEU, 1000 ea. BOTTLE Active [id number] 4 2023 180 Pharmac y Data Transac tion Service Facilit y Social History Combined list of available smoking, tobacco, and other social history from Department of Defense and Veterans Affairs facilities. Social History Type Response Date Comment [facility] e This section is an empty social history section. DoD
--- OUTSIDE RECORDS SUMMARY | 2024-06-15 14:48 | XMS_ITS | Patient Health Record ---
Author Organization [facility] Address [address] [place] [address] Care Team Providers Care Motorcycle Police Name Role Phone Gin Correa MD Primary Care Provider Kwame Jackson [phone] ALLERGIES No Known Allergies REASON FOR REFERRAL No Information MEDICATIONS Medication SIG (Take, Route, Frequency, Duration) Notes Start Date End Date Status Ipratropium-Albuterol 0.5-2.5 (3) MG/3ML 3 ml Inhalation every 6 hrs Active Tiotropium [place]-Olodaterol 2.5-2.5 MCG/ACT 2 puffs Inhalation Once a [...] malignant neoplasm of colon (Z12.11) Active confirmed 758260562 Problem History of adenomatous polyp of colon (Z86.010) Active confirmed 139461387 Problem Watters's esophagus without dysplasia (K22.70) Active confirmed 446083805 Problem Preprocedural examination (Z01.818) Active confirmed 126287375 Problem Gastroesophageal reflux disease, esophagitis presence not specified (K21.9) Active confirmed 580232313 Problem Long-term use of aspirin therapy (Z79.82) Active confirmed 110634926 Problem 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) Active confirmed Watters esophagus (252531136) Problem Diverticulosis of colon (K57.30) Active confirmed Diverticulosi s of colon (944690291) PLAN OF TREATMENT Pending Test Test Name [...] MA [address] [place] [address] [id number] MARIAH BAKER Self - patient is the insured [employer] [address] [place] [address] [id number] MARIAH BAKER Self - patient is the insured MEDICAL (GENERAL) HISTORY Medical History History ICD Code Colonoscopy 10/08/2005-2 tub ular adenomas removed- 1 in the rectum was > 1 cm and with high grade dysplasia---neg. colonoscopy in 07/2012 except for diverticulosis and hemorrhoids Denies SC,DM,CVA,renal disease COPD/Asthma GERD-EGD 09/2017 with small HH and Adair t's esophagus, no dysplasia BPH Sleep apnea--uses CPAP Colonoscopy 09/2017 with tubular adenomas removed Surgical History Surgery Date(Month/Year) Bilateral rotator cuff surgery x 2 Appendectomy Cataracts Left hip replacment 05/2019
== END 2024-06-15 10:27 | disposition home or self-care (01) ==
PROVIDERS: PCP Family Medicine; Visit Provider Internal Medicine Hypertension Specialist
DX: R60.0 Localized edema (principal); I12.9 Hypertensive chronic kidney disease with stage 1 through stage 4 chronic kidney disease, or unspecified chronic kidney disease; N18.9 Chronic kidney disease, unspecified; R60.9 Edema, unspecified; I65.23 Occlusion and stenosis of bilateral carotid arteries
CPT/HCPCS: 99214

== ENCOUNTER → 2024-06-15 10:12 | Outpatient (BNVA) | payer MEDICARE, OTHER, SELFPAY | PROVIDERS: PCP Family Medicine; Visit Provider Internal Medicine Hypertension Specialist | DX: I12.9 Hypertensive chronic kidney disease with stage 1 through stage 4 chronic kidney disease, or unspecified chronic kidney disease (principal); N18.9 Chronic kidney disease, unspecified; R60.0 Localized edema; R60.9 Edema, unspecified; I65.23 Occlusion and stenosis of bilateral carotid arteries; Z87.891 Personal history of nicotine dependence; Z79.899 Other long term (current) drug therapy | CPT/HCPCS: 99212 ==

== ENCOUNTER 2024-06-30 09:59 | Outpatient (AMB) | payer MEDICARE, OTHER, SELFPAY ==
[2024-06-30 10:01] VITALS: BMI 31.3
--- NOTE | 2024-06-30 10:01 | A.OFFVIS_ITS ---
Vital Signs 06/30/24 10:01 Height 5 ft 9 in Weight 212 lb BMI 31.3 Intake Visit Reasons: follow up s/p US 04/29/25 Intake Note: follow up for repeat US w/ hx of Right GSV Venaseal 01/01/2020 and Left GSV Venaseal 11/13/2019 for bilateral LE swelling and non-healing ulcers that has worsened over the past year. Adventure Therapist Required: No Accompanied by: Self / Same As Patient Allergies watermelon [WATERMELON] Allergy (Severe, Verified 06/30/24 10:04) ANAPHYLAXIS Iodinated Contrast Media [IV CONTRAST] Allergy (Intermediate, Verified 06/30/24 10:04) LIGHT HEADED AND SHORTNESS OF BREATH HPI HPI follow up s/p US 04/29/25: Details: Very pleasant 69-year-old gentleman presents for follow-up regarding lower extremity swelling. He he would seen us in the past regarding his carotids whi ch appear to be doing relatively well. Does have significant swelling of the lower extremities which continue to be a source of discomfort for him. It has been affecting his walking. He now presents for routine follow-up with venous insufficiency testing. [facility]LY [facility] Medical History Nocturnal hypoxia CHF (congestive heart failure) Chronic lung disease COPD with acute exacerbation Chronic lung disease Chronic lung disease Tubular adenoma of colon (~2005) COPD (chronic obstructive pulmonary disease) Pulmonary nodules RAYMOND on CPAP Chronic rhinitis Asthma-COPD overlap syndrome PAF (paroxysmal atrial fibrillation) (~2017) Echocardiogram abnormal Encounter for screening for lung cancer Edema leg Venous insufficiency of both lower extremities AC (acromioclavicular) joint arthritis BPH (benign prostatic hyperplasia) Seasonal allergies Hyperlipidemia Surgical History History of appendectomy History of esophagogastroduodenoscopy (EGD) History of total left hip replacement (~2019) History of repair of right rotator cuff (~2017) History of nasal septoplasty (~2008) History of colonoscopy History of cataract (~2009) Family History Father No problems noted. Mother CAD (coronary artery disease) CHF (congestive heart failure) HTN (hypertension) Brother No problems noted. Brother No problems noted. Sister No problems noted. Sister No problems noted. Sister Mental health disorder Son No problems noted. Son No problems noted. Social History Household Members: Spouse, Family and Children Housing: House Do you presently have visiting nurse or other home services: No Alcohol intake: current Alcohol intake frequency: holidays/special occasions only Patient Tobacco Use Status: Former Tobacco user Tobacco use type: Cigarette Years Smoked: 40 years e-Cigarette/Vaping Use: Former Use Second Hand Smoke Exposure: No Advance Directives Date on File: 10/10/22 service: Yes Current occupational status: retired Cognitive needs: No Hearing needs: No Vision needs: No Review of Systems Const Reports as per HPI ENT Reports no additional complaints Card Denies chest pain, Denies chest pain at rest and Denies chest pain with activity Resp Denies chest congestion and Denies cough GI Reports no additional complaints Musc Details: pain over varicosities, aching of lower extremities, swelling, cramping, heaviness and tiredness, itching Denies abnormal gait Skin/Breast Reports pruritus and Denies wounds Neuro Reports no additional complaints and Denies abnormal gait Psych Denies no additional complaints Physical Exam Vital Signs: BMI result Body Mass Index 31.3 Const General: cooperative, healthy appearing and comfortable Orientation/consciousness: oriented to person, oriented to place and oriented to time Neck Carotids: no bruits Chest Chest palpation & inspection: normal inspection of the chest and normal palpation of entire chest wall Resp Effort & Inspection: normal respiratory effort and able to speak in complete sentences Cardio Rate: regular rate Heart sounds: S1 normal heart sound present and S2 normal heart sound present Peripheral pulses: Peripheral pulses 2+ throughout GI Inspection: Yes normal to inspection Skin Other: +2 edema, left greater than right with clear skin color changes in bilateral ankles CEAP Classification C4 - skin color changes Ep - Etiology Primary As - superficial veins P - reflux General skin exam: dry skin Neuro General: oriented to person, oriented to place and oriented to time Extrem Right lower extremity: full ROM, normal capillary refill and edema Left lower extremity: full ROM, normal capillary refill and edema Psych Mental Status: mental status grossly normal Results Reviewed Results Reviewed: Brief summary of venous insufficiency testing is as follows: right great saphenous vein: negative right small saphenous vein: negative right accessory vein: none present left great saphenous vein: negative left small saphenous vein: negative left accessory vein: none present Please note there is no evidence of any venous aneurysms or significant tortuosity Assessment & Plan Assessment & Plan (1) Varicose veins of left lower extremity with inflammation: Comment: 11/13/2019 - left great saphenous vein Cyanoacralate ablation Code(s): I83.12 - Varicose veins of left lower extremity with inflammation Category: Medical Plan: Stable see lymphedema below (2) Varicose veins of right lower extremity with inflammation: Comment: 01/01/2020 - right great saphenous vein Cyanoacralate ablation Code(s): I83.11 - Varicose veins of right lower extremity with inflammation Category: Medical Plan: Stable see lymphedema below (3) Carotid stenosis, bilateral: Code(s): I65.23 - Occlusion and stenosis of bilateral carotid arteries Category: Medical Plan: Scheduled for annual surveillance on last visit (4) Lymphedema: Code(s): I89.0 - Lymphedema, not elsewhere classified Category: Medical Plan: At the current time this patient is venous insufficiency testing has shown to be negative. We did discuss routine conservative measures including compression elevation and exercise. He was prescribed lymphedema pumps in the past and has not been using them. Was re-educated on use of the lymphedema pumps and I did suggest that using a twice a day right now until some of the edema is relieved may be helpful. Once it is stable he can reduced down to once a week. He will follow up once again in a proximally 1 year's time for his carotids and we can reassess the legs at that point. Should there be any interval issues happy to see him back sooner. Thank you for allowing us to assist in his care. If there are any questions or concerns please do not hesitate to contact us. Coding Level of Care Code Est Pt Level 4 (92298) Complex EM visit Add On G2211 Diagnoses Varicose veins of left lower extremity with inflammation I83.12 Varicose veins of right lower extremity with inflammation I83.11 Carotid stenosis, bilateral I65.23 Lymphedema I89.0
--- OUTSIDE RECORDS SUMMARY | 2024-06-30 11:07 | XMS_ITS | Continuity of Care Document ---
Author Name [facility] Organization [facility] Care Team Providers Care Roof Painter Name Role Phone [facility] Unavailable Unavailable Medications Combined list of outpatient [...] INHALATION, LUPIN PHARMACEU, 8.5 g CANISTER Active [id number] 4 2023 8.5 Pharmac y Data Transac tion Service Facilit y AMLODIPINE BESYLATE (AMLODIPINE BESYLATE), 5 MG, TABLET, ORAL, [employer], 1000 ea. BOTTLE Active [id number] 4 2023 90 Pharmac y Data Transac tion Service Facilit y ARFORMOTERO L TARTRATE (arformoter ol tartrate), 15MCG/2ML, VIAL-NEB, INHALATION, LIFESTAR PHARMA, 2 ml VIAL Active [id number] 4 2023 360 Pharmac y Data Transac tion Service Facilit y Benzonatate ([employer]) 100 CAPSULE in 1 BOTTLE Active [id number] 09/07/19 2 4 2023 30 Pharmac y Data Transac tion Service Facilit y BUDESONIDE (budesonide ), 0.5 MG/2ML, AMPUL-NEB, INHALATION, EXELAN PHARMACE, 2 ml AMPUL Active [id number] 4 2023 360 Pharmac y Data Transac tion Service Facilit y BUDESONIDE (budesonide ), 0.5 MG/2ML, AMPUL-NEB, INHALATION, EXELAN PHARMACE, 2 ml AMPUL Active [id number] 4 2023 360 Pharmac y Data Transac tion Service Facilit y BUMETANIDE (BUMETANIDE ), 0.5MG, TABLET, ORAL, [facility], 100 ea. BOTTLE Active [id number] 4 2023 30 Pharmac y Data Transac tion Service Facilit y BUMETANIDE (BUMETANIDE ), 0.5MG, TABLET, ORAL, MAR[facility]N [facility], 100 ea. BOTTLE Active [id number] 4 2023 30 Pharmac y Data Transac tion Service Facilit y Cefpodoxime Proxetil (Cefpodoxim e Proxetil), 200mg, Tablet, Oral, Sandoz, 20 Ea. Bottle Active [id number] 4 2023 20 Pharmac y Data Transac tion Service Facilit y DOXYCYCLINE HYCLATE (DOXYCYCLIN E HYCLATE), 100 MG, CAPSULE, ORAL, WEST-OLVERA,I NC., 500 ea. BOTTLE Active [id number] 2023 20 Pharmac y Data Transac tion Service Facilit y DOXYCYCLINE MONOHYDRATE (DOXYCYCLIN E MONOHYDRATE ), 100 MG, CAPSULE, ORAL, LUPIN PHARMACEU, 50 ea. BOTTLE Active [id number] 2023 6 Pharmac y Data Transac tion Service Facilit y ELIQUIS (APIXABAN), 5 MG, TABLET, ORAL, BMS PRIMARYCARE , 60 ea. BOTTLE Active [id number] 2023 180 Pharmac y Data Transac tion Service Facilit y ELIQUIS (APIXABAN), 5 MG, TABLET, ORAL, BMS PRIMARYCARE , 60 ea. BOTTLE Active [id number] 4 2023 180 Pharmac y Data Transac tion Service Facilit y FLUAD QUAD (influenza vaccine quadrivalen t (65 yr up)/MF59C.1 /PF), 60MCG/.5ML, SYRINGE, INTRAMUSC, SEQIRUS, INC., .5 ml SYRINGE Active [id number] 2023 0.5 Pharmac y Data Transac tion Service Facilit y FLUTICASONE PROPIONATE (FLUTICASON E PROPIONATE) , 50MCG, SPRAY SUSP, NASAL, APOTEX FALLON, 16 g AER W/ADAP Active [id number] 2023 16 Pharmac y Data Transac tion Service Facilit y FUROSEMIDE (furosemide ), 20 MG, TABLET, ORAL, AVKARE, 1000 ea. BOTTLE Cancele d [id number] : 2023 0 Pharmac y Data Transac tion Service Facilit y FUROSEMIDE (furosemide ), 20 MG, TABLET, ORAL, AVKARE, 1000 ea. BOTTLE Active [id number] 2023 45 Pharmac y Data Transac tion Service Facilit y LEVALBUTERO L HCL (levalbuter ol HCl), 1.25MG/3ML, VIAL-NEB, INHALATION, AMNEAL PHARMACE, 3 ml VIAL Cancele d [id number] : 2023 0 Pharmac y Data Transac tion Service Facilit y LEVALBUTERO L HCL (levalbuter ol HCl), 1.25MG/3ML, VIAL-NEB, INHALATION, TEVA [place], 3 ml VIAL Cancele d [id number] : 2023 0 Pharmac y Data Transac tion Service Facilit y METOPROLOL SUCCINATE (metoprolol succinate), 100 MG, TAB ER 24H, ORAL, GSMS[employer] INC., 1000 ea. BOTTLE Cancele d [id number] 4 [id number] : 2023 0 Pharmac y Data Transac tion Service Facilit y METOPROLOL SUCCINATE (metoprolol succinate), 100 MG, TAB ER 24H, ORAL, [employer] INC., 1000 ea. BOTTLE Active [id number] 4 2023 90 Pharmac y Data Transac tion Service Facilit y MULTAQ (DRONEDARON E HYDROCHLORI DE), 400 MG, TABLET, ORAL, SANOFI-AVEN TIS, 60 ea. BOTTLE Active [id number] 2022 180 Pharmac y Data Transac tion Service Facilit y MULTAQ (DRONEDARON E HYDROCHLORI DE), 400 MG, TABLET, ORAL, SANOFI-AVEN TIS, 60 ea. BOTTLE Active [id number] 2023 180 Pharmac y Data Transac tion Service Facilit y PREDNISONE (prednisone ), 10 MG, TABLET, ORAL, AMNEAL PHARMACE, 100 ea. BOTTLE Active [id number] 2023 60 Pharmac y Data Transac tion Service Facilit y PREDNISONE (prednisone ), 10 MG, TABLET, ORAL, NOVITIUM/AN I PH, 100 ea. BOTTLE Active [id number] 2023 63 Pharmac y Data Transac tion Service Facilit y PREDNISONE (prednisone ), 10 MG, TABLET, ORAL, STRIDES PHARMA, 500 ea. BOTTLE Active [id number] 2023 120 Pharmac y Data Transac tion Service Facilit y PREDNISONE (PREDNISONE ), 20MG, TABLET, ORAL, CADISTA PHARMAC, 500 ea. BOTTLE Active [id number] 4 2023 8 Pharmac y Data Transac tion Service Facilit y ROFLUMILAST (roflumilas t), 500 MCG, TABLET, ORAL, NOVADOZ PHARMAC, 30 ea. BOTTLE Active [id number] 2023 90 Pharmac y Data Transac tion Service Facilit y TAMSULOSIN HCL (TAMSULOSIN HCL), 0.4 MG, CAP.SR 24H, ORAL, ZYDUS PHARMACEU, 1000 ea. BOTTLE Active [id number] 2023 180 Pharmac y Data Transac tion Service Facilit y Social History Combined list of available smoking, tobacco, and other social history from Department of Defense and Veterans Affairs facilities. Social History Type Response Date Comment [facility] e This section is an empty social history section. DoD
--- OUTSIDE RECORDS SUMMARY | 2024-06-30 11:07 | XMS_ITS ---
Author Organization [facility] Address Unknown Problems Problem Status Start Date End Date AFTERCARE FOLLOWING JOINT RE PLACEMENT SURGERY (Primary) (Z47.1 - ICD-10-CM) ACTIVE 06/06/2019 PRESENCE OF RIGHT ARTIFICIAL HIP JOINT (Z96.641 - ICD-10-CM) ACTIVE 06/06/2019 PAROXYSMAL ATRIAL FIBRILLATION (I48.0 - ICD-10-CM) ACT SUZIE 06/06/2019 CHRONIC OBSTRUCTIVE PULMONAR Y DISEASE WITH (ACUTE) EXACERBATION (J44.1 - ICD-10-CM) ACTIVE 06/06/2019 BENIGN PROSTATIC HYPERPLASIA WITHOUT LOWER URINARY TRACT SYMPTOMS (N40.0 - ICD-10-CM) ACTIVE 06/06/2019 Encounters Encounter Performer Performer Role Encounter Diagnoses Location Date Discharge [facility] 06/06/2019 02:29 pm EST - 06/09/2019 01:55 pm EST Social History
--- OUTSIDE RECORDS SUMMARY | 2024-06-30 11:07 | XMS_ITS | Patient Health Record ---
Author Organization [facility] Address [address] [place] [id number] Care Team Providers Care Theater Technician Name Role Phone Gin Correa MD Primary Care Provider Kwame Jackson [phone] ALLERGIES No Known Allergies REASON FOR REFERRAL No Information MEDICATIONS Medication SIG (Take, Route, Frequency, Duration) Notes Start Date End Date Status Ipratropium-Albuterol 0.5-2.5 (3) MG/3ML 3 ml Inhalation every 6 hrs Active Tiotropium [place]-Olodaterol 2.5-2.5 MCG/ACT 2 puffs Inhalation Once a [...] malignant neoplasm of colon (Z12.11) Active confirmed 996736494 Problem History of adenomatous polyp of colon (Z86.010) Active confirmed 222207281 Problem Watters's esophagus without dysplasia (K22.70) Active confirmed 104796492 Problem Preprocedural examination (Z01.818) Active confirmed 825152827 Problem Gastroesophageal reflux disease, esophagitis presence not specified (K21.9) Active confirmed 299998836 Problem Long-term use of aspirin therapy (Z79.82) Active confirmed 403448465 Problem 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) Active confirmed Watters esophagus (737858060) Problem Diverticulosis of colon (K57.30) Active confirmed Diverticulosi s of colon (269281433) PLAN OF TREATMENT Pending Test Test Name [...] MA [address] [place] [address] [id number] MARIAH BAKER Self - patient is the insured [employer] [address] [place] [address] [id number] MARIAH BAKER Self - patient is the insured MEDICAL (GENERAL) HISTORY Medical History History ICD Code Colonoscopy 10/08/2005-2 tub ular adenomas removed- 1 in the rectum was > 1 cm and with high grade dysplasia---neg. colonoscopy in 07/2012 except for diverticulosis and hemorrhoids Denies [place],DM,CVA,renal disease COPD/Asthma GERD-EGD 09/2017 with small HH and Adair t's esophagus, no dysplasia BPH Sleep apnea--uses CPAP Colonoscopy 09/2017 with tubular adenomas removed Surgical History Surgery Date(Month/Year) Bilateral rotator cuff surgery x 2 Appendectomy Cataracts Left hip replacment 05/2019
== END 2024-06-30 10:23 | disposition home or self-care (01) ==
PROVIDERS: PCP Family Medicine; Visit Provider Surgery Vascular Surgery
DX: I83.12 Varicose veins of left lower extremity with inflammation (principal); I83.11 Varicose veins of right lower extremity with inflammation; I65.23 Occlusion and stenosis of bilateral carotid arteries; I89.0 Lymphedema, not elsewhere classified
CPT/HCPCS: 99214; G2211

== ENCOUNTER → 2024-06-30 09:59 | Outpatient (BNVA) | payer MEDICARE, OTHER, SELFPAY | PROVIDERS: PCP Family Medicine; Visit Provider Surgery Vascular Surgery | DX: I83.12 Varicose veins of left lower extremity with inflammation (principal); I83.11 Varicose veins of right lower extremity with inflammation; I65.23 Occlusion and stenosis of bilateral carotid arteries; I89.0 Lymphedema, not elsewhere classified; Z87.891 Personal history of nicotine dependence | CPT/HCPCS: 99212 ==

== ENCOUNTER 2024-07-16 10:07 | Outpatient (AMB) | payer MEDICARE, OTHER, SELFPAY ==
[2024-07-16 10:26] VITALS: BP 130/54; PULSE 87; O2SAT 94; BMI 32.1
--- NOTE | 2024-07-16 10:26 | A.OFFVIS_ITS ---
Vital Signs 07/16/24 10:26 Height 5 ft 9 in Weight 217 lb 2.485 oz BMI 32.1 BP 130/54 L Blood Pressure Location Rt brachial Position Sitting Pulse 87 Pulse Source Pulse Oximeter Pulse Oximetry (%) 94 Oxygen Delivery Method Room Air Intake Visit Reasons: Obstructive sleep apnea Allergies watermelon [WATERMELON] Allergy (Severe, Verified 07/16/24 10:28) ANAPHYLAXIS Iodinated Contrast Media [IV CONTRAST] Allergy (Intermediate, Verified 07/16/24 10:28) LIGHT HEADED AND SHORTNESS OF BREATH HPI Comments Details: Patient is a 69 y/o man with history of underlying pulmonary nodules, RAYMOND on CPAP, asthma COPD overlap syndrome, tracheobronchomalacia in addition to hypersensitivity pneumonitis due to multiple exposures especially at while he was working. He has been using CPAP therapy the CPAP therapy has been very affecting beneficial. The CPAP therapy he uses every night for more than 4 hours. Recently he did have a CT scan of his chest for the lung cancer screening program and is nodular densities have resolved which is very reassuring. He is scheduled for the CT scan in a year's time. I am hopeful that we can decrease the amount of Xopenex that he is using and then hopefully decrease the amount of budesonide that he is using. His CPAP therapy has been affecting beneficial. He has been getting supplies through [employer] now regularly. His CPAP therapy he does use for more than 4 hours a night. He has lost about 30 lb. He still on Daliresp that is likely contributing to that. If he co 08/28/2023 the patient is here for sick visit. He is having hard time with his breathing. The patient recently call the office with worsening risk was sent to the ER. He wants admitted on August 04 to the hospital. He had a chest x-ray demonstrating bilateral pneumonia. This is superimposed on his underlying interstitial lung disease. He was treated with prednisone addition to antibiotics subsequently discharged. He did not require oxygen upon discharge. The patient has been weaning off the prednisone down to 10 mg of prednisone having hard time with his breathing. He is then in bed now for about 3 days. His coughing has gotten worse expectorating discolored mucus. Denies any hemoptysis. In the office he does have significant wheezing chest tightness. Will go ahead and give him a couple treatments of DuoNeb. Hopefully we can improve his respiratory symptoms we can start antibiotics and give him additional Solu-Medrol and prednisone for home. If however he does not improve after the breathing treatments then will consider transferring him to the ER. 09/18/2023 the patient is here for a pulmonary follow-up visit. The patient recently was hospitalized because of the bad bronchopneumonia and asthma exacerbation. He is now recovering. He feels a little better although starting to get chest tightness again. He has been using prednisone 20 mg daily in his also been using all his respiratory medicines. He is also developing some lower extremity edema swelling redness. Is tender to the touch. It appears to be bilateral cellulitis. I did review his chest x-ray he did have run this is a week ago and compared to the x-ray he had when he was admitted to the hospital still demonstrates hazy opacities suggesting some component of pneumonitis. Therefore will increase the prednisone and also will keep him on some antibiotics to treat him for cellulitis. He will return in 3-4 weeks. If he has any worsening symptoms he will call prior to that visit. 10/07/2023 the patient is here for a pulmonary follow-up visit. The patient is feeling lot better. He is recovering now closer to his baseline. He is down to 20 mg of prednisone. He would like to come off. However, will need to very careful as we wean off slowly. Therefore will decrease by 5 mg every 7-10 days. Hopefully he can come off completely. He continues on his respiratory therapy with good effect. He also continues with CPAP using more than 4 hours a night. The CPAP therapy continues to be affecting beneficial. The lower extremity edema as a little better he continues to have some degree of erythema but it does not look infected anymore. He did complete the doxycycline. Otherwise patient is doing better so therefore we will continue his current respiratory regimen and hopefully we can wean off completely from the prednisone. Will follow-up in 4 months. 04/15/2024 the patient is here for a pulmonary follow-up visit. Overall he is doing okay. Does complaint of dyspnea on exertion. Sometimes he is so short of breath that he goes to his home in uses his oxygen via his concentrator. Which is the portability outside of the home. The patient also has been dealing with renal failure. This kidney now is back to baseline although does have some chronic renal insufficiency. The patient continues on injections, Tezspire. 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 He has been developing increasing infections. Therefore we will be talking to his trail construction worker regarding switching his biologic to a different regimen. I do believe does good options specially if he continues with significant COPD and wheezing symptoms. The patient did have a walking oximetry in the office and he did desaturate down to 88% with activity was visibly dyspneic and the heart rate went up to 120 beats per minute. Dyspnea score 7/10. 2 L pulse with sufficient to keep his oxygen around 94 % with activity. He already has oxygen through [employer] as the concentrator home. He will need portability. I will request a portable oxygen concentrator for him to use for better portability outside of the home. Also he will continue to use his CPAP at home. We did review his sleep study. We had requested a titration study but it looks like they just did a regular sleep. Therefore, will have him do an overnight oximetry on room air to see if he still needs the oxygen at nighttime. 07/16/2024 the patient is here for a pulmonary follow-up visit. He has been struggling now for several weeks. He has had worsening cough shortness of breath chest tightness. Moderate to severe. He has been using his nebulizer re gularly 2 to 4 times a day and has been continued his other medicines. The patient did run out of his prednisone though. He was trying to wean himself off it. Right now he does have significant chest tightness and wheezing. Explained to him that he probably have to stay on a small dose of prednisone regularly to avoid his severe exacerbations. In the meantime he is using the CPAP the CPAP therapy continues to be affecting beneficial. He is using it with oxygen. Will have to do an overnight oximetry on room air to see if he does not need the oxygen any longer while sleeping. He can do that whenever he is feeling better. He continues on the biologic therapy, Tezspire. He is going to be following up soon with his trail construction worker to see if any further changes need to take place. [facility] Medical History Nocturnal hypoxia CHF (congestive heart failure) Chronic lung disease COPD with acute exacerbation Chronic lung disease Chronic lung disease Tubular adenoma of colon (~2005) COPD (chronic obstructive pulmonary disease) Pulmonary nodules RAYMOND on CPAP Chronic rhinitis Asthma-COPD overlap syndrome PAF (paroxysmal atrial fibrillation) (~2017) Echocardiogram abnormal Encounter for screening for lung cancer Edema leg Venous insufficiency of both lower extremities AC (acromioclavicular) joint arthritis BPH (benign prostatic hyperplasia) Seasonal allergies Hyperlipidemia Surgical History History of appendectomy History of esophagogastroduodenoscopy (EGD) History of total left hip replacement (~2019) History of repair of right rotator cuff (~2017) History of nasal septoplasty (~2008) History of colonoscopy History of cataract (~2009) Family History Father No problems noted. Mother CAD (coronary artery disease) CHF (congestive heart failure) HTN (hypertension) Brother No problems noted. Brother No problems noted. Sister No problems noted. Sister No problems noted. Sister Mental health disorder Son No problems noted. Son No problems noted. Social History Household Members: Spouse, Family and Children Housing: House Do you presently have visiting nurse or other home services: No Alcohol intake: current Alcohol intake frequency: holidays/special occasions only Patient Tobacco Use Status: Former Tobacco user Tobacco use type: Cigarette Years Smoked: 40 years e-Cigarette/Vaping Use: Former Use Second Hand Smoke Exposure: No Advance Directives Date on File: 10/10/22 service: Yes Current occupational status: retired Cognitive needs: No Hearing needs: No Vision needs: No Review of Systems Const Reports daytime sleepiness, Reports difficulty sleeping and Reports fatigue Eyes Denies change in vision ENT Reports nasal congestion, Reports nasal discharge and Reports sore throat Card Denies chest pain, Reports dyspnea and Reports dyspnea on exertion Resp Reports cough, Denies hemoptysis, Reports dyspnea, Reports dyspnea on exertion and Reports wheezing GI Reports no additional complaints Musc Reports no additional complaints Skin/Breast Denies rash Neuro Reports no additional complaints Psych Reports no additional complaints Endo Reports fatigue and Denies heat intolerance Kelvin/Lymph Denies easy bleeding, Denies easy bruising and Denies lymphadenopathy Aller/Immun Reports wheezing Physical Exam Vital Signs: Last Vital Signs Pulse 87 07/16/24 10:26 BP 130/54 L 07/16/24 10:26 Pulse Ox 94 07/16/24 10:26 Oxygen Delivery Method Room Air 07/16/24 10:26 BMI result Body Mass Index 32.1 Const General: comfortable and alert Orientation/consciousness: patient oriented x3 Eyes Pupils: Equal, round and reactive pupils present Neck Neck: Yes normal visual inspection, Yes full ROM and Yes no lymphadenopathy Chest Chest palpation & inspection: normal inspection of the chest Resp Effort & Inspection: normal respiratory effort and prolonged expiratory phase Auscultation: wheezes and diminished lung sounds Cardio Rate: regular rate Rhythm: regular rhythm Heart sounds: S1 normal heart sound present and S2 normal heart sound present GI Palpation (GI): Soft to palpation and nontender Auscultation: normal bowel sounds General: Yes no CVA tenderness Back/Spine/Pelvis Back: no CVA tenderness Skin General skin exam: no rashes or lesions noted Neuro General: patient oriented x3 Cranial nerves: Yes Equal, round and reactive pupils present Extrem General: Yes no clubbing, cyanosis or edema Office Meds methylprednisolone sod suc(PF) 125 mg/2 mL solution for injection Performing Provider: Sha Head MD Performing Location[place] [facility] Administered by: Qiana Valencia LPN on 07/16/24 10:58 Dose Route Admin Location Dispensed Lot Number Expiration Date [facility] [employer] 125 mg IM R buttock 1 ea [id number] 05/19/26 6952-5050-23 [employer] Assessment & Plan Assessment & Plan (1) COPD (chronic obstructive pulmonary disease): Code(s): J44.9 - Chronic obstructive pulmonary disease, unspecified Category: Medical Qualifiers: COPD type: COPD with acute exacerbation Qualified Code(s): J44.1 - Stock Associate taylor obstructive pulmonary disease with (acute) exacerbation (2) Asthma-COPD overlap syndrome: Code(s): J44.9 - Chronic obstructive pulmonary disease, unspecified Category: Medical (3) Pulmonary nodules: Code(s): R91.8 - Other nonspecific abnormal finding of lung field Category: Medical (4) RAYMOND on CPAP: Code(s): G47.33 - Obstructive sleep apnea (adult) (pediatric); Z99.89 - Dependence on other enabling machines and devices Category: Medical (5) Chronic rhinitis: Code(s): J31.0 - Chronic rhinitis Category: Medical (6) Nocturnal hypoxia: Code(s): G47.34 - Idiopathic sleep related nonobstructive alveolar hypoventilation Category: Medical Plan Solumedrol 125mg IM, then prednisone taper continue Tezspire [id number], Will call Dr Ornelas about changing Biologic continue Brovana/BUdesonide BID ANN as needed continue APAP, adjusted pressures 6-12 oxygen with activity: POC 2L/min with activity. Requesting POC for better portability outside of the home continue oxygen supplementation while sleeping with CPAP. will request overnight oximetry F/U 3-4 weeks Orders: Orders AMB Methylprednisolone Sod Succ Injection Today J41.1 - Mucopurulent chronic bronchitis Medications: New prednisone PO daily; Take 6 tabs daily x 3 days, then 5 tabs x 3 days, then 4 tabs x 3 days, then 3 tabs x 3 days, then 2 tabs daily x 3 days, then 1 tab x 3 days to complete. 18 days 63 tabs 0RF prednisone PO daily; Take 6 tabs daily x 3 days, then 5 tabs x 3 days, then 4 tabs x 3 days, then 3 tabs x 3 days, then 2 tabs daily x 3 days, then 1 tab x 3 days to complete. 63 tabs 0RF 18 days prednisone 10 mg (2 x 5 mg) PO DAILY 90 days 180 tabs 11RF prednisone 10 mg (2 x 5 mg) PO DAILY 180 tabs 11RF 90 days Coding Level of Care Code Tele Est Pt Level 4 (89816) Complex EM visit Add On G2211 Diagnoses Chronic obstructive pulmonary disease with acute exacerbation J44.1 COPD type: COPD with acute exacerbation Asthma-COPD overlap syndrome J44.9 Pulmonary nodules R91.8 RAYMOND on CPAP G47.33; Z99.89 Chronic rhinitis J31.0 Nocturnal hypoxia G47.34 Time Spent (min) 17
--- OUTSIDE RECORDS SUMMARY | 2024-07-16 11:41 | XMS_ITS | Continuity of Care Document ---
Author Name [facility] Organization [facility] Care Team Providers Care Bingo Clerk Name Role Phone [facility] Unavailable Unavailable Medications Combined list of outpatient [...] INHALATION, LUPIN PHARMACEU, 8.5 g CANISTER Active [id number] 4 2023 8.5 Pharmac y Data Transac tion Service Facilit y AMLODIPINE BESYLATE (AMLODIPINE BESYLATE), 5 MG, TABLET, ORAL, [employer], 1000 ea. BOTTLE Active [id number] 4 2023 90 Pharmac y Data Transac tion Service Facilit y ARFORMOTERO L TARTRATE (arformoter ol tartrate), 15MCG/2ML, VIAL-NEB, INHALATION, LIFESTAR PHARMA, 2 ml VIAL Active [id number] 4 2023 360 Pharmac y Data Transac tion Service Facilit y Benzonatate ([employer]) 100 CAPSULE in 1 BOTTLE Active [id number] 09/07/19 2 4 2023 30 Pharmac y Data Transac tion Service Facilit y BUDESONIDE (budesonide ), 0.5 MG/2ML, AMPUL-NEB, INHALATION, EXELAN PHARMACE, 2 ml AMPUL Active [id number] 4 2023 360 Pharmac y Data Transac tion Service Facilit y BUDESONIDE (budesonide ), 0.5 MG/2ML, AMPUL-NEB, INHALATION, EXELAN PHARMACE, 2 ml AMPUL Active [id number] 4 2023 360 Pharmac y Data Transac tion Service Facilit y BUMETANIDE (BUMETANIDE ), 0.5MG, TABLET, ORAL, MAR[facility]N [facility], 100 ea. BOTTLE Active [id number] 4 2023 30 Pharmac y Data Transac tion Service Facilit y BUMETANIDE (BUMETANIDE ), 0.5MG, TABLET, ORAL, [facility]N [employer], 100 ea. BOTTLE Active [id number] 4 2023 30 Pharmac y Data Transac tion Service Facilit y Cefpodoxime Proxetil (Cefpodoxim e Proxetil), 200mg, Tablet, Oral, Sandoz, 20 Ea. Bottle Active [id number] 4 2023 20 Pharmac y Data Transac tion Service Facilit y DOXYCYCLINE HYCLATE (DOXYCYCLIN E HYCLATE), 100 MG, CAPSULE, ORAL, WEST-OL[place]A,I NC., 500 ea. BOTTLE Active [id number] 4 2023 20 Pharmac y Data Transac tion Service Facilit y DOXYCYCLINE MONOHYDRATE (DOXYCYCLIN E MONOHYDRATE ), 100 MG, CAPSULE, ORAL, LUPIN PHARMACEU, 50 ea. BOTTLE Active [id number] 4 2023 6 Pharmac y Data Transac tion Service Facilit y ELIQUIS (APIXABAN), 5 MG, TABLET, ORAL, BMS PRIMARYCARE , 60 ea. BOTTLE Active [id number] 4 2023 180 Pharmac y Data Transac tion Service Facilit y ELIQUIS (APIXABAN), 5 MG, TABLET, ORAL, BMS PRIMARYCARE , 60 ea. BOTTLE Active [id number] 4 2023 180 Pharmac y Data Transac tion Service Facilit y FLUAD QUAD (influenza vaccine quadrivalen t (65 yr up)/MF59C.1 /PF), 60MCG/.5ML, SYRINGE, INTRAMUSC, [employer] INC[employer] .5 ml SYRINGE Active [id number] 2023 0.5 Pharmac y Data Transac tion Service Facilit y FLUTICASONE PROPIONATE (FLUTICASON E PROPIONATE) , 50MCG, SPRAY SUSP, NASAL, APOTEX [place], 16 g AER W/ADAP Active [id number] 4 2023 16 Pharmac y Data Transac tion Service Facilit y FUROSEMIDE (furosemide ), 20 MG, TABLET, ORAL, AVKARE, 1000 ea. BOTTLE Cancele d [id number] : 2023 0 Pharmac y Data Transac tion Service Facilit y FUROSEMIDE (furosemide ), 20 MG, TABLET, ORAL, AVKARE, 1000 ea. BOTTLE Active [id number] 4 2023 45 Pharmac y Data Transac tion Service Facilit y LEVALBUTERO L HCL (levalbuter ol HCl), 1.25MG/3ML, VIAL-NEB, INHALATION, AMNEAL PHARMACE, 3 ml VIAL Cancele d [id number] : 2023 0 Pharmac y Data Transac tion Service Facilit y LEVALBUTERO L HCL (levalbuter ol HCl), 1.25MG/3ML, VIAL-NEB, INHALATION, TEVA [place], 3 ml VIAL Cancele d [id number] : 2023 0 Pharmac y Data Transac tion Service Facilit y METOPROLOL SUCCINATE (metoprolol succinate), 100 MG, TAB ER 24H, ORAL, [employer]MS[employer] INC[employer] 1000 ea. BOTTLE Cancele d [id number] : 2023 0 Pharmac y Data Transac tion Service Facilit y METOPROLOL SUCCINATE (metoprolol succinate), 100 MG, TAB ER 24H, ORAL, [employer] INC[employer] 1000 ea. BOTTLE Active [id number] 2023 90 Pharmac y Data Transac tion Service Facilit y MULTAQ (DRONEDARON E HYDROCHLORI DE), 400 MG, TABLET, ORAL, SANOFI-AVEN TIS, 60 ea. BOTTLE Active [id number] 3 2022 180 Pharmac y Data Transac tion Service Facilit y MULTAQ (DRONEDARON E HYDROCHLORI DE), 400 MG, TABLET, ORAL, SANOFI-AVEN TIS, 60 ea. BOTTLE Active [id number] 4 2023 180 Pharmac y Data Transac tion Service Facilit y PREDNISONE (prednisone ), 10 MG, TABLET, ORAL, AMNEAL PHARMACE, 100 ea. BOTTLE Active [id number] 4 2023 60 Pharmac y Data Transac tion Service Facilit y PREDNISONE (prednisone ), 10 MG, TABLET, ORAL, NOVITIUM/AN I PH, 100 ea. BOTTLE Active [id number] 4 2023 63 Pharmac y Data Transac tion Service Facilit y PREDNISONE (prednisone ), 10 MG, TABLET, ORAL, STRIDES PHARMA, 500 ea. BOTTLE Active [id number] 4 2023 120 Pharmac y Data Transac tion Service Facilit y PREDNISONE (PREDNISONE ), 20MG, TABLET, ORAL, CADISTA PHARMAC, 500 ea. BOTTLE Active [id number] 4 2023 8 Pharmac y Data Transac tion Service Facilit y ROFLUMILAST (roflumilas t), 500 MCG, TABLET, ORAL, NOVADOZ PHARMAC, 30 ea. BOTTLE Active [id number] 4 2023 90 Pharmac y Data Transac tion Service Facilit y TAMSULOSIN HCL (TAMSULOSIN HCL), 0.4 MG, CAP.SR 24H, ORAL, ZYDUS PHARMACEU, 1000 ea. BOTTLE Active [id number] 4 2023 180 Pharmac y Data Transac tion Service Facilit y Social History Combined list of available smoking, tobacco, and other social history from Department of Defense and Veterans Affairs facilities. Social History Type Response Date Comment [facility] e This section is an empty social history section. DoD
--- OUTSIDE RECORDS SUMMARY | 2024-07-16 11:41 | XMS_ITS | Patient Health Record ---
Author Organization [facility] Address [address] [place] [id number] Care Team Providers Care Energy Auditor Name Role Phone Gin Correa MD Primary Care Provider Kwame Jackson [phone] ALLERGIES No Known Allergies REASON FOR REFERRAL No Information MEDICATIONS Medication SIG (Take, Route, Frequency, Duration) Notes Start Date End Date Status Ipratropium-Albuterol 0.5-2.5 (3) MG/3ML 3 ml Inhalation every 6 hrs Active Tiotropium [place]-Olodaterol 2.5-2.5 MCG/ACT 2 puffs Inhalation Once a [...] malignant neoplasm of colon (Z12.11) Active confirmed 882669160 Problem History of adenomatous polyp of colon (Z86.010) Active confirmed 127542121 Problem Watters's esophagus without dysplasia (K22.70) Active confirmed 427339856 Problem Preprocedural examination (Z01.818) Active confirmed 763828581 Problem Gastroesophageal reflux disease, esophagitis presence not specified (K21.9) Active confirmed 500868498 Problem Long-term use of aspirin therapy (Z79.82) Active confirmed 162471785 Problem 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) Active confirmed Watters esophagus (944928433) Problem Diverticulosis of colon (K57.30) Active confirmed Diverticulosi s of colon (063410524) PLAN OF TREATMENT Pending Test Test Name [...] MA [address] [place] [address] [id number] MARIAH BAKER Self - patient is the insured [employer] [address] [place] [address] [phone] [id number] MARIAH BAKER Self - patient is the insured MEDICAL (GENERAL) HISTORY Medical History History ICD Code Colonoscopy 10/08/2005-2 tub ular adenomas removed- 1 in the rectum was > 1 cm and with high grade dysplasia---neg. colonoscopy in 07/2012 except for diverticulosis and hemorrhoids Denies IA,DM,CVA,renal disease COPD/Asthma GERD-EGD 09/2017 with small HH and Adair t's esophagus, no dysplasia BPH Sleep apnea--uses CPAP Colonoscopy 09/2017 with tubular adenomas removed Surgical History Surgery Date(Month/Year) Bilateral rotator cuff surgery x 2 Appendectomy Cataracts Left hip replacment 05/2019
== END 2024-07-16 10:57 | disposition home or self-care (01) ==
PROVIDERS: PCP Family Medicine; Visit Provider Hospitalist
DX: J41.1 Mucopurulent chronic bronchitis (principal); R91.8 Other nonspecific abnormal finding of lung field; G47.33 Obstructive sleep apnea (adult) (pediatric); Z99.89 Dependence on other enabling machines and devices; G47.34 Idiopathic sleep related nonobstructive alveolar hypoventilation
CPT/HCPCS: 99214

== ENCOUNTER → 2024-07-16 10:07 | Outpatient (BNVA) | payer MEDICARE, OTHER, SELFPAY | PROVIDERS: PCP Family Medicine; Visit Provider Hospitalist | DX: G47.33 Obstructive sleep apnea (adult) (pediatric) (principal); R91.8 Other nonspecific abnormal finding of lung field; J44.1 Chronic obstructive pulmonary disease with (acute) exacerbation; G47.34 Idiopathic sleep related nonobstructive alveolar hypoventilation; J31.0 Chronic rhinitis; Z99.89 Dependence on other enabling machines and devices | CPT/HCPCS: 96372; 99212; J2919 ==

== ENCOUNTER 2024-08-05 10:37 | Outpatient (AMB) | payer MEDICARE, OTHER, SELFPAY ==
--- NOTE | 2024-08-05 11:02 | MHC.PC.OV ---
Vital Signs 08/05/24 11:05 Height 5 ft 9 in Weight 225 lb 4 oz BMI 33.3 BP 120/60 Blood Pressure Location Rt brachial Position Sitting Respiration 16 Pulse 83 Pulse Source Pulse Oximeter Temp 97.6 F Temp Source Oral Pulse Oximetry (%) 95 Oxygen Delivery Method Room Air Intake Visit Reasons: f/u hypertension, chronic conditions Intake Note: patient is scheduled to follow up for htn and chronic conditions High Density Press Laborer Required: No Allergies watermelon [WATERMELON] Allergy (Severe, Verified 08/05/24 11:02) ANAPHYLAXIS Iodinated Contrast Media [IV CONTRAST] Allergy (Intermediate, Verified 08/05/24 11:02) LIGHT HEADED AND SHORTNESS OF BREATH Medication List - Last Reconciled 08/05/24 by Guilherme Mcallister MD albuterol sulfate 90 mcg/actuation 2 puffs inhalation QID PRN apixaban (Eliquis) 5 mg PO BID arformoterol (Brovana) 15 mcg (2 mL) inhalation BID atorvastatin 80 mg PO DAILY benzonatate 100 mg PO BID-TID PRN blood pressure monitor Automatic, Digital. Dx: I10. Daily As directed, 999 days/lifetime budesonide 0.5 mg (2 mL) inhalation BID bupropion HCl 150 mg (2 x 75 mg) PO BID 90 days CPAP (CPAP Machine/Device) As directed dronedarone (Multaq) 400 mg PO BID furosemide 40 mg PO Q OTHER DAY guaifenesin ER (Mucinex) 600 mg PO BID levalbuterol HCl 1.25 mg (3 mL) inhalation BID 90 days losartan 37.5 mg (1.5 x 25 mg) PO DAILY 90 days metolazone 2.5 mg PO .1x week metoprolol succinate ER 100 mg PO DAILY montelukast 10 mg PO DAILY nebulizers As directed Oxygen Home Use As directed prednisone PO daily; Take 6 tabs daily x 3 days, then 5 tabs x 3 days, then 4 tabs x 3 days, then 3 tabs x 3 days, then 2 tabs daily x 3 days, then 1 tab x 3 days to complete. 18 days prednisone 10 mg (2 x 5 mg) PO DAILY 90 days roflumilast 500 mcg PO DAILY tamsulosin (Flomax) 0.4 mg PO BID 90 days tezepelumab-ekko (Tezspire) 210 mg subcut Q4W Tobacco use date assessed: 09/26/23 Dental Screening Dental Screen Date: 09/26/23 HPI f/u hypertension, chronic conditions HPI Details 69 y/o male presents to f/u HTN, chronic conditions. Blood pressure today 120/60, 83p. He is on losartan 37.5mg, metoprolol 100mg daily. Follows up with neprhology for CKD. HPI Comments History of Present Illness Details Documentation assistance for Guilherme Mcallister MD, was provided by Felix Oconnor,? Water Treatment Technician on 08/05/2024 at 11:26 AM JULIA. I, Dr. cMallister, have read, observed, and verified documentation. ?? [facility] Medical History Nocturnal hypoxia CHF (congestive heart failure) Chronic lung disease COPD with acute exacerbation Chronic lung disease Chronic lung disease Tubular adenoma of colon (~2005) COPD (chronic obstructive pulmonary disease) Pulmonary nodules RAYMOND on CPAP Chronic rhinitis Asthma-COPD overlap syndrome PAF (paroxysmal atrial fibrillation) (~2017) Echocardiogram abnormal Encounter for screening for lung cancer Edema leg Venous insufficiency of both lower extremities AC (acromioclavicular) joint arthritis BPH (benign prostatic hyperplasia) Seasonal allergies Hyperlipidemia Surgical History History of appendectomy History of esophagogastroduodenoscopy (EGD) History of total left hip replacement (~2019) History of repair of right rotator cuff (~2017) History of nasal septoplasty (~2008) History of colonoscopy History of cataract (~2009) Family History Father No problems noted. Mother CAD (coronary artery disease) CHF (congestive heart failure) HTN (hypertension) Brother No problems noted. Brother No problems noted. Sister No problems noted. Sister No problems noted. Sister Mental health disorder Son No problems noted. Son No problems noted. Social History Household Members: Spouse, Family and Children Housing: House Do you presently have visiting nurse or other home services: No Alcohol intake: current Alcohol intake frequency: holidays/special occasions only Patient Tobacco Use Status: Former Tobacco user Tobacco use type: Cigarette Years Smoked: 40 years e-Cigarette/Vaping Use: Former Use Second Hand Smoke Exposure: No Advance Directives Date on File: 10/10/22 service: Yes Current occupational status: retired Cognitive needs: No Hearing needs: No Vision needs: No Questionnaire PHQ-9 Over the last 2 weeks, how often have you been bothered by any of the following problems? 1. Little interest or pleasure in doing things: not at all 2. Feeling down, depressed, or hopeless: not at all Source: Developed by Drs. Kwame William, Damian Braden and colleagues, with an educational maria g from [employer]. Thrive Questionnaire Date Thrive assessed: 08/05/24 I am a: Patient What is your living situation today?: I have a steady place to live Within the past 12 months, did the food you bought not last and you didn't have the money to get more?: I choose not to answer this question Within the past 12 months, did you worry whether your food would run out before you got money to buy more?: I choose not to answer this question Do you have trouble paying for medicines?: Yes Do you have trouble getting transportation to medical appointments?: No Do you have trouble paying your heating and electricity bill?: No Do you have trouble taking care of your child, family member or friend?: I choose not to answer this question Do you have trouble with day-to-day activities such as bathing, preparing meals, shopping, managing finances, etc.?: I choose not to answer this question Are you currently unemployed and looking for a job?: I choose not to answer this question Are you interested in more education?: I choose not to answer this question Currently or been in a relationship where the following occur: I choose not to answer THRIVE Score: 0 STEVEN-7 AMB Questionnaire STEVEN-7 Date STEVEN - 7 assessed: 06/27/23 Source: Developed by Drs. Kwame William, Damian Braden and colleagues, with an educational maria g from [employer]. Review of Systems Const Denies chills, Denies fatigue, Denies fever(s), Denies headache(s) and Denies weakness ENT Denies dizziness and Denies headache(s) Card Denies dyspnea Resp Denies cough, Denies dyspnea, Denies wheezing and Denies other (shortness of breath) Musc Denies numbness and Denies tingling Neuro Denies dizziness, Denies headache(s), Denies numbness, Denies tingling and Denies weakness Psych Denies anxiety and Denies depression Endo Denies fatigue Aller/Immun Denies wheezing Physical exam (Primary Care) Vital Signs: Last Vital Signs Temp 97.6 F 08/05/24 11:05 Pulse 83 08/05/24 11:05 Resp 16 08/05/24 11:05 BP 120/60 08/05/24 11:05 Pulse Ox 95 08/05/24 11:05 Oxygen Delivery Method Room Air 08/05/24 11:05 BMI result Body Mass Index 33.3 Tobacco/Smoking Status: Tobacco use Status Tobacco use date assessed 09/26/23 08/05/24 11:08 Patient Tobacco Use Status Former Tobacco user 08/05/24 11:08 Tobacco use type Cigarette 08/05/24 11:08 e-Cigarette/Vaping Use Former Use 08/05/24 11:08 Thrive Assessment: Date of Thrive Assessment Date Thrive assessed 08/05/24 08/05/24 11:08 Currently or been in a relationship where the following occur: I choose not to answer Const General: well developed; No acute distress Nutritional Appearance: well nourished Orientation/consciousness: patient oriented x3 HENMT Head: Yes normocephalic and Yes atraumatic Eyes General: appearance normal, both eyes and all related structures Pupils: Equal, round and reactive pupils present EOM: EOMs intact bilaterally Resp Effort & Inspection: normal respiratory effort Auscultation: clear to auscultation bilaterally Cardio Rate: regular rate Rhythm: regular rhythm Heart sounds: S1 normal heart sound present, S2 normal heart sound present, no gallops, no murmurs and no rubs Neuro General: patient oriented x3 and gait normal Cranial nerves: Yes Equal, round and reactive pupils present Psych Affect: normal affect Coding Level of Care Code Est Pt Level 4 (28217) Diagnoses Primary hypertension I10 Hypertension type: primary hypertension Chronic kidney disease, unspecified CKD stage N18.9 Chronic kidney disease stage: unspecified stage Chronic obstructive pulmonary disease with acute exacerbation J44.1 COPD type: COPD with acute exacerbation Lymphedema I89.0 Assessment & Plan Assessment & Plan (1) Hypertension: Code(s): I10 - Essential (primary) hypertension Category: Medical Qualifiers: Hypertension type: primary hypertension Qualified Code(s): I10 - Essential (primary) hypertension Plan: Blood?pressure?is?well?controlled.??Goal?is?less?than?130/80 He?is?on?losartan?25?mg?tabs,?1.5?tabs?daily. Unclear?if?he?is?taking?metoprolol?and?he?will?let?us?know?but?he?does?not?think?he?takes?this?any?longer.??Did?not?tolerate?amlodipine As?his?blood?pressure?is?well?controlled?today,?he?will?continue?his?current?medication?regimen.??He?will?call?us?to?us?know?is?exact?medication?regimen?for?blood?pressure. (2) CKD (chronic kidney disease): Code(s): N18.9 - Chronic kidney disease, unspecified Category: Medical Qualifiers: Chronic kidney disease stage: unspecified stage Qualified Code(s): N18.9 - Chronic kidney disease, unspecified Plan: Last?creatinine?level?1.68 This?is?likely?around?his?baseline. Followed?by?Nephrology?and?stable (3) COPD (chronic obstructive pulmonary disease): Code(s): J44.9 - Chronic obstructive pulmonary disease, unspecified Category: Medical Qualifiers: COPD type: COPD with acute exacerbation Qualified Code(s): J44.1 - Chronic obstructive pulmonary disease with (acute) exacerbation Plan: Patient?is?on?nighttime?oxygen?and?daytime?oxygen?as?needed.??He?is?followed?by?[facility]?Pulmonary?Medicine Recent?COPD?exacerbation Currently?breathing?easy?and?lungs?are?clear Continue?current?medication?regimen?and?oxygen Follow-up?Pulmonary?Medicine?as?recommended (4) Lymphedema: Code(s): I89.0 - Lymphedema, not elsewhere classified Category: Medical Plan: Lymphedema?is?controlled?with?pump?garments. Improving Avoid?salt/sodium Elevate?legs Continue?palms?and?he?will?decrease?the?frequency?of?use?for?these?when?symptoms?are?stable?and?well?controlled. Follow-up?with?vascular?as?recommended Orders: Orders Basic Metabolic Panel Today N18.9 - Chronic kidney disease, unspecified, Z00.00 - Encounter for general adult medical examination without abnormal findings UA and rflx microscopic Today N18.9 - Chronic kidney disease, unspecified, Z00.00 - Encounter for general adult medical examination without abnormal findings Microalbumin, Random (w Creat) Today I10 - Essential (primary) hypertension, N18.9 - Chronic kidney disease, unspecified
[2024-08-05 11:05] VITALS: BP 120/60; PULSE 83; RESP 16; TEMP 36.4; O2SAT 95; BMI 33.3
--- OUTSIDE RECORDS SUMMARY | 2024-08-05 12:38 | XMS_ITS ---
Author Organization [facility] Care Team Providers Care Senior Marketing Data Analyst Name Role Phone ElderMadai Unavailable Unavailable Care Team Name Role Address Phone Organization Nicole Schmidt Elder PCP [address] [facility] [address], [place], [address], [facility] (Office): : [facility] 06/06/2019 - 06/09/2019 Mental Status Section Date Assessment Total Score Description 06/09/2019 BIMS 15 cognitively int act CAM 0 No delirium ind icated PHQ-9 00 Problems Problem # Description Date of onset Resolved Date Code CodeSystem Concern Status 1 AFTERCARE FOLLOWING JOINT REPLACEMENT SURGERY 06/06/[address] active 2 BENIGN PROSTATIC HYPERPLASIA WITHOUT LOWER URINARY TRACT SYMPTOMS 06/06/[address] active 3 CHRONIC OBSTRUCTIVE PULMONARY DISEASE WITH (ACUTE) EXACERBATION 06/06/[address] active 4 PAROXYSMAL ATRIAL FIBRILLATION 06/06/[address] active 5 PRESENCE OF RIGHT ARTIFICIAL HIP JOINT 06/06/[address] active Reason for Referral No Reasons for Referral Entered Social History Social History Observation Description Start Date End Date Code Code System Current Smoking Status Tobacco smoking consumption unknown 412682791 SNOMED CT Sex Assigned At Male 1955 17254-6 [facility] Vital Signs Code Code System Vitals Name Values and Units Timing Information 9279-1 INC Respiratory Rate Value=20.0 Units=/m in 06/09/2019 20284-1 LOINC O2 % BldC Oximetry Value=96.0 Units= % 06/09/2019 45484-0 LOINC Weight Gfrkg=521.8 Units=Lbs 8462-4 INC Blood Pressure-Diastolic Value=75 Un its=mmHg 06/09/2019 8480-6 LOINC Blood Pressure-Systolic Pcfhi=336 Un its=mmHg 06/09/2019 8310-5 [facility] Body Temperature Value=97.9 Units=?? F 06/09/2019 8867-4 [facility] Heart rate Value=84.0 Units=/min 8302-2 [facility] Height Value=69.0 Units=Inches 06/07/2019
--- OUTSIDE RECORDS SUMMARY | 2024-08-05 12:38 | XMS_ITS | Patient Health Record ---
Author Organization [facility] Address [address] [place] [address] Care Team Providers Care Bar Back Name Role Phone Gin Correa MD Primary Care Provider Kwame Jackson [phone] Allergies No Known Allergies Reason For Referral No Information Medications Medication SIG (Take, Route, Frequency, Duration) Notes Start Date End Date Status Ipratropium-Albuterol 0.5-2.5 (3) MG/3ML 3 ml Inhalation every 6 hrs Active Tiotropium Dawson-Olodaterol 2.5-2.5 MCG/ACT 2 puffs Inhalation Once a [...] tablet Orally twic e a day Active Immunizations Vaccine Route Administration Date Status Comme nts Flu vaccine no Preserv 3 and > Unknown 03/05/2017 Admin istered Influenza Unknown 03/08/2021 Administered Social History Tobacco Use: Social History Observation Description Date Details (start date - stop date) Former Smoker NA - NA Tobacco Use/Smoking Question Answer Notes Patient is [...] Never (0 point) Points 4 Interpretation Positive Section Notes: Stopped smoking as of 05/20/19 13; occasional alcohol Stopped smoking as of 05/20/19 13; occasional alcohol socially Stopped smoking as of 05/20/19 13; occasional alcohol socially Problems Problem Type SNOMED Code ICD Code Onset Dates Problem Status W/U Status Risk Notes Problem 292295144 Encounter for screening for malignant neoplasm of colon (Z12.11) Active confirmed Problem 440739518 History of adenomatous polyp of colon (Z86.010) Active confirmed Problem 368570239 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 confirmed Problem 946020448 Preprocedural examination (Z01.818) Active confirmed Problem 746933279 Gastroesophageal reflux disease, esophagitis presence not specified (K21.9) Active confirmed Problem 370875312 Long-term use of aspirin therapy (Z79.82) Active confirmed Problem Watters esophagus (379341680) 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) Active confirmed Problem Diverticulosis of colon (101253886) Diverticulosis of colon (K57.30) Active confirmed Plan Of Treatment Pending Test Test Name Order Date Pathology 09/18/2021 Future Test Test Name Order Date COLONOSCOPY 06/12/2012 UPPER GI ENDOSCOPY 07/10/2017 COLONOSCOPY 07/10/2017 UPPER GI ENDOSCOPY 08/24/2021 COLONOSCOPY 08/24/2021 Insurance Providers Payer Name Payer Address Payer Phone Subscriber Number Group Number Insured Name Patient Relationship to Insured Coverage Start Date Coverage End Date MEDICARE OF [facility] [address] [place] [id number] MARIAH BAKER Self - patient is the insured GIV[employer] [address] [place] [address] [id number] MARIAH BAKER Self - patient is the insured Medical (General) History Medical History History ICD Code Colonoscopy 10/08/2005-2 tub ular adenomas removed- 1 in the rectum was > 1 cm and with high grade dysplasia---neg. colonoscopy in 07/2012 except for diverticulosis and hemorrhoids Denies MN,DM,CVA,renal disease COPD/Asthma GERD-EGD 09/2017 with small HH and Adair t's esophagus, no dysplasia BPH Sleep apnea--uses CPAP Colonoscopy 09/2017 with tubular adenomas removed Surgical History Surgery Date(Month/Year) Bilateral rotator cuff surgery x 2 Appendectomy Cataracts Left hip replacment 05/2019
== END 2024-08-05 11:41 | disposition home or self-care (01) ==
LOC: HO.HMCFM 10:38
PROVIDERS: PCP Family Medicine; Visit Provider Family Medicine
DX: I12.9 Hypertensive chronic kidney disease with stage 1 through stage 4 chronic kidney disease, or unspecified chronic kidney disease (principal); N18.9 Chronic kidney disease, unspecified; J44.1 Chronic obstructive pulmonary disease with (acute) exacerbation; I89.0 Lymphedema, not elsewhere classified

== ENCOUNTER → 2024-08-05 10:37 | Outpatient (BNVA) | payer MEDICARE, OTHER, SELFPAY | PROVIDERS: PCP Family Medicine; Visit Provider Family Medicine | DX: I12.9 Hypertensive chronic kidney disease with stage 1 through stage 4 chronic kidney disease, or unspecified chronic kidney disease (principal); N18.9 Chronic kidney disease, unspecified; J44.1 Chronic obstructive pulmonary disease with (acute) exacerbation; I89.0 Lymphedema, not elsewhere classified | CPT/HCPCS: 99212 ==

== ENCOUNTER 2024-08-10 09:26 | Outpatient (AMB) | payer MEDICARE, OTHER, SELFPAY ==
[2024-08-10 09:31] VITALS: BP 142/68; PULSE 80; O2SAT 96; BMI 33.9
--- NOTE | 2024-08-10 09:31 | A.OFFVIS_ITS ---
Vital Signs 08/10/24 09:31 Height 5 ft 9 in Weight 229 lb 4.492 oz BMI 33.9 BP 142/68 H Blood Pressure Location Rt brachial Position Sitting Pulse 80 Pulse Source Pulse Oximeter Pulse Oximetry (%) 96 Oxygen Delivery Method Room Air Intake Visit Reasons: Obstructive sleep apnea Allergies watermelon [WATERMELON] Allergy (Severe, Verified 08/10/24 09:36) ANAPHYLAXIS Iodinated Contrast Media [IV CONTRAST] Allergy (Intermediate, Verified 08/10/24 09:36) LIGHT HEADED AND SHORTNESS OF BREATH HPI Comments Details: Patient is a 69 y/o man with history of underlying pulmonary nodules, RAYMOND on CPAP, asthma COPD overlap syndrome, tracheobronchomalacia in addition to hypersensitivity pneumonitis due to multiple exposures especially at while he was working. He has been using CPAP therapy the CPAP therapy has been very affecting beneficial. The CPAP therapy he uses every night for more than 4 hours. Recently he did have a CT scan of his chest for the lung cancer screening program and is nodular densities have resolved which is very reassuring. He is scheduled for the CT scan in a year's time. I am hopeful that we can decrease the amount of Xopenex that he is using and then hopefully decrease the amount of budesonide that he is using. His CPAP therapy has been affecting beneficial. He has been getting supplies through [employer] now regularly. His CPAP therapy he does use for more than 4 hours a night. He has lost about 30 lb. He still on Daliresp that is likely contributing to that. If he co 08/28/2023 the patient is here for sick visit. He is having hard time with his breathing. The patient recently call the office with worsening risk was sent to the ER. He wants admitted on August 04 to the hospital. He had a chest x-ray demonstrating bilateral pneumonia. This is superimposed on his underlying interstitial lung disease. He was treated with prednisone addition to antibiotics subsequently discharged. He did not require oxygen upon discharge. The patient has been weaning off the prednisone down to 10 mg of prednisone having hard time with his breathing. He is then in bed now for about 3 days. His coughing has gotten worse expectorating discolored mucus. Denies any hemoptysis. In the office he does have significant wheezing chest tightness. Will go ahead and give him a couple treatments of DuoNeb. Hopefully we can improve his respiratory symptoms we can start antibiotics and give him additional Solu-Medrol and prednisone for home. If however he does not improve after the breathing treatments then will consider transferring him to the ER. 09/18/2023 the patient is here for a pulmonary follow-up visit. The patient recently was hospitalized because of the bad bronchopneumonia and asthma exacerbation. He is now recovering. He feels a little better although starting to get chest tightness again. He has been using prednisone 20 mg daily in his also been using all his respiratory medicines. He is also developing some lower extremity edema swelling redness. Is tender to the touch. It appears to be bilateral cellulitis. I did review his chest x-ray he did have run this is a week ago and compared to the x-ray he had when he was admitted to the hospital still demonstrates hazy opacities suggesting some component of pneumonitis. Therefore will increase the prednisone and also will keep him on some antibiotics to treat him for cellulitis. He will return in 3-4 weeks. If he has any worsening symptoms he will call prior to that visit. 10/07/2023 the patient is here for a pulmonary follow-up visit. The patient is feeling lot better. He is recovering now closer to his baseline. He is down to 20 mg of prednisone. He would like to come off. However, will need to very careful as we wean off slowly. Therefore will decrease by 5 mg every 7-10 days. Hopefully he can come off completely. He continues on his respiratory therapy with good effect. He also continues with CPAP using more than 4 hours a night. The CPAP therapy continues to be affecting beneficial. The lower extremity edema as a little better he continues to have some degree of erythema but it does not look infected anymore. He did complete the doxycycline. Otherwise patient is doing better so therefore we will continue his current respiratory regimen and hopefully we can wean off completely from the prednisone. Will follow-up in 4 months. 04/15/2024 the patient is here for a pulmonary follow-up visit. Overall he is doing okay. Does complaint of dyspnea on exertion. Sometimes he is so short of breath that he goes to his home in uses his oxygen via his concentrator. Which is the portability outside of the home. The patient also has been dealing with renal failure. This kidney now is back to baseline although does have some chronic renal insufficiency. The patient continues on injections, Tezspire. He gets them through his adaptive physical education specialist. He has been developing increasing infections. Therefore we will be talking to his adaptive physical education specialist regarding switching his biologic to a different regimen. I do believe does good options specially if he continues with significant COPD and wheezing symptoms. The patient did have a walking oximetry in the office and he did desaturate down to 88% with activity was visibly dyspneic and the heart rate went up to 120 beats per minute. Dyspnea score 7/10. 2 L pulse with sufficient to keep his oxygen around 94 % with activity. He already has oxygen through [employer] as the concentrator home. He will need portability. I will request a portable oxygen concentrator for him to use for better portability outside of the home. Also he will continue to use his CPAP at home. We did review his sleep study. We had requested a titration study but it looks like they just did a regular sleep. Therefore, will have him do an overnight oximetry on room air to see if he still needs the oxygen at nighttime. 07/16/2024 the patient is here for a pulmonary follow-up visit. He has been struggling now for several weeks. He has had worsening cough shortness of breath chest tightness. Moderate to severe. He has been using his nebulizer re gularly 2 to 4 times a day and has been continued his other medicines. The patient did run out of his prednisone though. He was trying to wean himself off it. Right now he does have significant chest tightness and wheezing. Explained to him that he probably have to stay on a small dose of prednisone regularly to avoid his severe exacerbations. In the meantime he is using the CPAP the CPAP therapy continues to be affecting beneficial. He is using it with oxygen. Will have to do an overnight oximetry on room air to see if he does not need the oxygen any longer while sleeping. He can do that whenever he is feeling better. He continues on the biologic therapy, Tezspire. He is going to be following up soon with his adaptive physical education specialist to see if any further changes need to take place. 08/10/2024 the patient is here for pulmonary follow-up visit. Overall he is feeling a lot better. He is down to 10 mg of prednisone. He is going on a cruise next weeks. At this point will go ahead and optimize his respiratory therapy by adding Spiriva to his regimen. He also needs any nebulizer since is broken. Will send a prescription to the local [employer] company. Hopefully can get a before his trip. The patient continues to CPAP therapy. The CPAP therapy continues to be affecting beneficial he does use it for more than 4 hours. He will take the CPAP with him. He also continues on the biologic therapy, Tezspire with good results. Right now the patient continues to have a little wheezing on exam but closer to his baseline. I am hopeful that the long-acting muscarinic antagonist be helpful. Will follow-up in a couple months. After he gets back from his trip he can start decreasing the prednisone some. But hopefully will stay on small dose and try to find the lowest most effective dose . [facility] Medical History Nocturnal hypoxia CHF (congestive heart failure) Chronic lung disease COPD with acute exacerbation Chronic lung disease Chronic lung disease Tubular adenoma of colon (~2005) COPD (chronic obstructive pulmonary disease) Pulmonary nodules RAYMOND on CPAP Chronic rhinitis Asthma-COPD overlap syndrome PAF (paroxysmal atrial fibrillation) (~2017) Echocardiogram abnormal Encounter for screening for lung cancer Edema leg Venous insufficiency of both lower extremities AC (acromioclavicular) joint arthritis BPH (benign prostatic hyperplasia) Seasonal allergies Hyperlipidemia Surgical History History of appendectomy History of esophagogastroduodenoscopy (EGD) History of total left hip replacement (~2019) History of repair of right rotator cuff (~2017) History of nasal septoplasty (~2008) History of colonoscopy History of cataract (~2009) Family History Father No problems noted. Mother CAD (coronary artery disease) CHF (congestive heart failure) HTN (hypertension) Brother No problems noted. Brother No problems noted. Sister No problems noted. Sister No problems noted. Sister Mental health disorder Son No problems noted. Son No problems noted. Social History Household Members: Spouse, Family and Children Housing: House Do you presently have visiting nurse or other home services: No Alcohol intake: current Alcohol intake frequency: holidays/special occasions only Patient Tobacco Use Status: Former Tobacco user Tobacco use type: Cigarette Years Smoked: 40 years e-Cigarette/Vaping Use: Former Use Second Hand Smoke Exposure: No Advance Directives Date on File: 10/10/22 service: Yes Current occupational status: retired Cognitive needs: No Hearing needs: No Vision needs: No Review of Systems Const Denies fatigue Eyes Denies change in vision ENT Reports nasal congestion, Reports nasal discharge and Denies sore throat Card Denies chest pain and Reports dyspnea on exertion Resp Reports cough, Denies hemoptysis, Reports dyspnea on exertion and Reports wheezing GI Reports no additional complaints Musc Reports no additional complaints Skin/Breast Denies rash Neuro Reports no additional complaints Psych Reports no additional complaints Endo Denies fatigue and Denies heat intolerance Kelvin/Lymph Denies easy bleeding, Denies easy bruising and Denies lymphadenopathy Aller/Immun Reports wheezing Physical Exam Vital Signs: Last Vital Signs Pulse 80 08/10/24 09:31 BP 142/68 H 08/10/24 09:31 Pulse Ox 96 08/10/24 09:31 Oxygen Delivery Method Room Air 08/10/24 09:31 BMI result Body Mass Index 33.9 Const General: comfortable and alert Orientation/consciousness: patient oriented x3 Eyes Pupils: Equal, round and reactive pupils present Neck Neck: Yes normal visual inspection, Yes full ROM and Yes no lymphadenopathy Chest Chest palpation & inspection: normal inspection of the chest Resp Effort & Inspection: normal respiratory effort and prolonged expiratory phase Auscultation: wheezes and diminished lung sounds Cardio Rate: regular rate Rhythm: regular rhythm Heart sounds: S1 normal heart sound present and S2 normal heart sound present GI Palpation (GI): Soft to palpation and nontender Auscultation: normal bowel sounds General: Yes no CVA tenderness Back/Spine/Pelvis Back: no CVA tenderness Skin General skin exam: no rashes or lesions noted Neuro General: patient oriented x3 Cranial nerves: Yes Equal, round and reactive pupils present Extrem General: Yes no clubbing, cyanosis or edema Assessment & Plan Assessment & Plan (1) COPD (chronic obstructive pulmonary disease): Code(s): J44.9 - Chronic obstructive pulmonary disease, unspecified Category: Medical Qualifiers: COPD type: chronic bronchitis Chronic bronchitis type: mixed simple and mucopurulent Qualified Code(s): J41.8 - Mixed simple and mucopurulent chronic bronchitis (2) Asthma-COPD overlap syndrome: Code(s): J44.9 - Chronic obstructive pulmonary disease, unspecified Category: Medical (3) Pulmonary nodules: Code(s): R91.8 - Other nonspecific abnormal finding of lung field Category: Medical (4) RAYMOND on CPAP: Code(s): G47.33 - Obstructive sleep apnea (adult) (pediatric); Z99.89 - Dependence on other enabling machines and devices Category: Medical (5) Chronic rhinitis: Code(s): J31.0 - Chronic rhinitis Category: Medical (6) Nocturnal hypoxia: Code(s): G47.34 - Idiopathic sleep related nonobstructive alveolar hypoventilation Category: Medical Plan continue Tezspire [id number], Will call Dr Ornelas about changing Biologic continue Brovana/BUdesonide BID Add Spiriva continue Prednisone 10mg daily, then after the cruise he will try to decrease to 10/5 alternating->5mg ANN as needed continue APAP, adjusted pressures 6-12 oxygen with activity: POC 2L/min with activity. Requesting POC for better portability outside of the home continue oxygen supplementation while sleeping with CPAP. F/U 2-3 months Medications: New tiotropium bromide 2.5 mcg/actuation (Spiriva Respimat) 2 puffs inhalation DAILY 3 ea 3RF 90 days tiotropium bromide 2.5 mcg/actuation (Spiriva Respimat) 2 puffs inhalation DAILY 1 ea 11RF 30 days Coding Level of Care Code Est Pt Level 4 (54774) Complex EM visit Add On G2211 Diagnoses Mixed simple and mucopurulent chronic bronchitis J41.8 COPD type: chronic bronchitis Chronic bronchitis type: mixed simple and mucopurulent Asthma-COPD overlap syndrome J44.9 Pulmonary nodules R91.8 RAYMOND on CPAP G47.33; Z99.89 Chronic rhinitis J31.0 Nocturnal hypoxia G47.34 Time Spent (min) 16
== END 2024-08-10 09:53 | disposition home or self-care (01) ==
LOC: HO.HPS 09:27
PROVIDERS: PCP Family Medicine; Visit Provider Hospitalist
DX: J41.8 Mixed simple and mucopurulent chronic bronchitis (principal); R91.8 Other nonspecific abnormal finding of lung field; G47.33 Obstructive sleep apnea (adult) (pediatric); Z99.89 Dependence on other enabling machines and devices; G47.34 Idiopathic sleep related nonobstructive alveolar hypoventilation
CPT/HCPCS: 99214; G2211

== ENCOUNTER → 2024-08-10 09:26 | Outpatient (BNVA) | payer MEDICARE, OTHER, SELFPAY | PROVIDERS: PCP Family Medicine; Visit Provider Hospitalist | DX: G47.33 Obstructive sleep apnea (adult) (pediatric) (principal); J31.0 Chronic rhinitis; J41.8 Mixed simple and mucopurulent chronic bronchitis; R91.8 Other nonspecific abnormal finding of lung field; G47.34 Idiopathic sleep related nonobstructive alveolar hypoventilation; Z87.891 Personal history of nicotine dependence; Z99.89 Dependence on other enabling machines and devices | CPT/HCPCS: 99212 ==

== ENCOUNTER 2024-09-09 12:03 | Outpatient (REF) | payer MEDICARE, OTHER, SELFPAY ==
[2024-09-09 13:57] LABS: Anion Gap 14 (12-20); Blood Urea Nitrogen 29 mg/dL (9-16); Carbon Dioxide 25 mmol/L (22-29); Chloride 107 mmol/L (96-108); Estimated Glomerular Filt Rate 39; Glucose Random 82 mg/dL (60-115); Potassium 4.1 mmol/L (3.3-5.1); Sodium 142 mmol/L (135-145)
--- OUTSIDE RECORDS SUMMARY | 2024-09-09 14:27 | XMS_ITS | Continuity of Care Document ---
Author Name [facility] Organization [facility] Care Team Providers Care Candy Feeder Name Role Phone [facility] Unavailable Unavailable Medications Combined list of outpatient [...] INHALATION, LUPIN PHARMACEU, 8.5 g CANISTER Active [id number] 4 2023 8.5 Pharmac y Data Transac tion Service Facilit y AMLODIPINE BESYLATE (AMLODIPINE BESYLATE), 5 MG, TABLET, ORAL, [employer], 1000 ea. BOTTLE Active [id number] 4 2023 90 Pharmac y Data Transac tion Service Facilit y ARFORMOTERO L TARTRATE (arformoter ol tartrate), 15MCG/2ML, VIAL-NEB, INHALATION, [employer], 2 ml VIAL Active [id number] 4 2023 360 Pharmac y Data Transac tion Service Facilit y Benzonatate ([employer]) 100 CAPSULE in 1 BOTTLE Active [id number] 09/07/19 2 4 2023 30 Pharmac y Data Transac tion Service Facilit y BUMETANIDE (BUMETANIDE ), 0.5MG, TABLET, ORAL, [facility], 100 ea. BOTTLE Active [id number] 4 2023 30 Pharmac y Data Transac tion Service Facilit y BUMETANIDE (BUMETANIDE ), 0.5MG, TABLET, ORAL, [facility], 100 ea. BOTTLE Active [id number] 4 2023 30 Pharmac y Data Transac tion Service Facilit y Cefpodoxime Proxetil (Cefpodoxim e Proxetil), 200mg, Tablet, Oral, Sandoz, 20 Ea. Bottle Active [id number] 4 2023 20 Pharmac y Data Transac tion Service Facilit y DOXYCYCLINE HYCLATE (DOXYCYCLIN E HYCLATE), 100 MG, CAPSULE, ORAL, [place],I NC., 500 ea. BOTTLE Active [id number] 4 2023 20 Pharmac y Data Transac tion Service Facilit y DOXYCYCLINE MONOHYDRATE (DOXYCYCLIN E MONOHYDRATE ), 100 MG, CAPSULE, ORAL, LUPIN PHARMACEU, 50 ea. BOTTLE Active [id number] 4 2023 6 Pharmac y Data Transac tion Service Facilit y FUROSEMIDE (furosemide ), 20 MG, TABLET, ORAL, AVKARE, 1000 ea. BOTTLE Cancele d [id number] : 2023 0 Pharmac y Data Transac tion Service Facilit y FUROSEMIDE (furosemide ), 20 MG, TABLET, ORAL, AVKARE, 1000 ea. BOTTLE Active [id number] 2023 45 Pharmac y Data Transac tion Service Facilit y LEVALBUTERO L HCL (levalbuter ol HCl), 1.25MG/3ML, VIAL-NEB, INHALATION, AMNEAL PHARMACE, 3 ml VIAL Cancele d [id number] : 2023 0 Pharmac y Data Transac tion Service Facilit y LEVALBUTERO L HCL (levalbuter ol HCl), 1.25MG/3ML, VIAL-NEB, INHALATION, T[facility]A [facility], 3 ml VIAL Cancele d [id number] : 2023 0 Pharmac y Data Transac tion Service Facilit y METOPROLOL SUCCINATE (metoprolol succinate), 100 MG, TAB ER 24H, ORAL, [employer] 1000 ea. BOTTLE Cancele d [id number] : 2023 0 Pharmac y Data Transac tion Service Facilit y METOPROLOL SUCCINATE (metoprolol succinate), 100 MG, TAB ER 24H, ORAL, [employer] 1000 ea. BOTTLE Active [id number] 4 2023 90 Pharmac y Data Transac tion Service Facilit y PREDNISONE (prednisone ), 10 MG, TABLET, ORAL, AMNEAL PHARMACE, 100 ea. BOTTLE Active [id number] 4 2023 60 Pharmac y Data Transac tion Service Facilit y PREDNISONE (prednisone ), 10 MG, TABLET, ORAL, NOVITIUM/AN I PH, 100 ea. BOTTLE Active [id number] 2023 63 Pharmac y Data Transac tion Service Facilit y PREDNISONE (prednisone ), 10 MG, TABLET, ORAL, STRIDES PHARMA, 500 ea. BOTTLE Active [id number] 4 2023 120 Pharmac y Data Transac tion Service Facilit y PREDNISONE (PREDNISONE ), 20MG, TABLET, ORAL, [employer]ISTA [employer]ARMAC, 500 ea. BOTTLE Active [id number] 4 2023 8 Pharmac y Data Transac tion Service Facilit y ROFLUMILAST (roflumilas t), 500 MCG, TABLET, ORAL, NOVADOZ PHARMAC, 30 ea. BOTTLE Active [id number] 4 2023 90 Pharmac y Data Transac tion Service Facilit y TAMSULOSIN HCL (TAMSULOSIN HCL), 0.4 MG, CAP.SR 24H, ORAL, ZYDUS PHARMACEU, 1000 ea. BOTTLE Active [id number] 4 2023 180 Pharmac y Data Transac tion Service Facilit y Social History Combined list of available smoking, tobacco, and other social history from Department of Defense and Veterans Affairs facilities. Social History Type Response Date Comment Sour e This section is an empty social history section. [facility]
== END 2024-09-09 12:04 | disposition home or self-care (01) ==
LOC: HO.HMGCLDS 12:03
PROVIDERS: PCP Family Medicine; Visit Provider Internal Medicine Hypertension Specialist
DX: N18.9 Chronic kidney disease, unspecified (principal)
CPT/HCPCS: 36415; 80048

== ENCOUNTER 2024-09-10 13:15 | Outpatient (AMB) | payer MEDICARE, OTHER, SELFPAY ==
--- NOTE | 2024-09-10 13:22 | HO.NEPHOV_ITS ---
Vital Signs 09/10/24 13:23 Height 5 ft 9 in Weight 234 lb 6 oz BMI 34.6 BP 138/60 Blood Pressure Location Rt brachial Position Sitting Pulse 77 Pulse Source Pulse Oximeter Pulse Oximetry (%) 95 Oxygen Delivery Method Room Air Intake Visit Reasons: Edema/LVM Allergies watermelon [WATERMELON] Allergy (Severe, Verified 09/10/24 13:23) ANAPHYLAXIS Iodinated Contrast Media [IV CONTRAST] Allergy (Intermediate, Verified 09/10/24 13:23) LIGHT HEADED AND SHORTNESS OF BREATH Medication List - Last Reconciled 09/10/24 by Jd Yates MD albuterol sulfate 90 mcg/actuation 2 puffs inhalation QID PRN apixaban (Eliquis) 5 mg PO BID arformoterol (Brovana) 15 mcg (2 mL) inhalation BID atorvastatin 80 mg PO DAILY benzonatate 100 mg PO BID-TID PRN blood pressure monitor Automatic, Digital. Dx: I10. Daily As directed, 999 days/lifetime budesonide 0.5 mg (2 mL) inhalation BID bupropion HCl 150 mg (2 x 75 mg) PO BID 90 days CPAP (CPAP Machine/Device) As directed dronedarone (Multaq) 400 mg PO BID furosemide 40 mg PO Q OTHER DAY guaifenesin ER (Mucinex) 600 mg PO BID levalbuterol HCl 1.25 mg (3 mL) inhalation BID 90 days losartan 37.5 mg (1.5 x 25 mg) PO DAILY 90 days metolazone 2.5 mg PO .1x week metoprolol succinate ER 100 mg PO DAILY montelukast 10 mg PO DAILY nebulizers As directed Oxygen Home Use As directed prednisone 10 mg (2 x 5 mg) PO DAILY 90 days roflumilast 500 mcg PO DAILY tamsulosin (Flomax) 0.4 mg PO BID 90 days tezepelumab-ekko (Tezspire) 210 mg subcut Q4W tiotropium bromide 2.5 mcg/actuation (Spiriva Respimat) 2 puffs inhalation DAILY 90 days tiotropium bromide 2.5 mcg/actuation (Spiriva Respimat) 2 puffs inhalation DAILY 30 days HPI Comments Details: . Kiran is a pleasant 68-year-old man with a history of hypertension COPD with peripheral vascular disease. He has had significantly leg edema. He was on amlodipine which has been discontinued recently. He is on Lasix 20 mg a day. He has underlying CKD with a serum creatinine of around 1.2-1.3 at baseline. Recently there has been a bump in serum creatinine up to 1.6. He was on lisinopril 20 mg a day which has been discontinued few months ago. The diuretics are being adjusted based on the creatinine but he continues to have leg edema and hence this referral. He is history of COPD and obstructive sleep apnea. Was recently hospitalized for exacerbation of COPD. He is currently on prednisone. He had an echocardiogram which did not reveal any significant right sided heart failure. He has a significant history of smoking for almost 40 years 1-2 packs per day he quit smoking about 15 years ago. Review of system was positive for significantly leg edema. He had increased urinary frequency which has resolved. No nausea vomiting no chest pain no palpitations no fever no rash 10/28/2023. He admits taking Bumex for for a week. He took it for few days. Repeat serum creatinine was 1.62. No increase in BUN. He continues her leg edema. Urine did not reveal any significant proteinuria 11/26/2023. He was on Bumex 0.5 mg once a day. However he felt that the leg edema was worsening. He went to the ER and he had more swelling. Bumex was increased to 1 mg a day. However is still believes that the edema gets worse with a high dose of Bumex. He has significant redness in his legs which is pain Doppler did not reveal any DVTs 12/12/2023. After course of antibiotics the erythema has improved. He is still has edema. He is tolerating Lasix well. 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 01/14/24; Recently in [facility];Treated with antibiotics; Legs with edema ;Erythema improved with antibiotics 02/03/2024 ;Continues have leg edema. He was recently in urgent care. No changes were made to diuretics. 02/18/2024. After addition of metolazone he has lost about 12 lb. He did go to the ER with low blood pressure. No changes were made at the time. 03/31/24 ; Still with edema ;weight is up 06/15/24; Doing better ;Edema under control ;Cr at 1.6 ;Recently had flu ;Now on Lasix 40 mg QOD 09/10/24: Recently went on a cruise ; Gained 6 lbs. No new issues [facility] Medical History Nocturnal hypoxia CHF (congestive heart failure) Chronic lung disease COPD with acute exacerbation Chronic lung disease Chronic lung disease Tubular adenoma of colon (~2005) COPD (chronic obstructive pulmonary disease) Pulmonary nodules RAYMOND on CPAP Chronic rhinitis Asthma-COPD overlap syndrome PAF (paroxysmal atrial fibrillation) (~2017) Echocardiogram abnormal Encounter for screening for lung cancer Edema leg Venous insufficiency of both lower extremities AC (acromioclavicular) joint arthritis BPH (benign prostatic hyperplasia) Seasonal allergies Hyperlipidemia Surgical History History of appendectomy History of esophagogastroduodenoscopy (EGD) History of total left hip replacement (~2019) History of repair of right rotator cuff (~2017) History of nasal septoplasty (~2008) History of colonoscopy History of cataract (~2009) Family History Father No problems noted. Mother CAD (coronary artery disease) CHF (congestive heart failure) HTN (hypertension) Brother No problems noted. Brother No problems noted. Sister No problems noted. Sister No problems noted. Sister Mental health disorder Son No problems noted. Son No problems noted. Social History Household Members: Spouse, Family and Children Housing: House Do you presently have visiting nurse or other home services: No Alcohol intake: current Alcohol intake frequency: holidays/special occasions only Patient Tobacco Use Status: Former Tobacco user Tobacco use type: Cigarette Years Smoked: 40 years e-Cigarette/Vaping Use: Former Use Second Hand Smoke Exposure: No Advance Directives Date on File: 10/10/22 service: Yes Current occupational status: retired Cognitive needs: No Hearing needs: No Vision needs: No Physical Exam Vital Signs: Last Vital Signs Pulse 77 09/10/24 13:23 BP 138/60 09/10/24 13:23 Pulse Ox 95 09/10/24 13:23 Oxygen Delivery Method Room Air 09/10/24 13:23 BMI result Body Mass Index 34.6 Const General: comfortable; No acute distress Orientation/consciousness: patient oriented x3 Eyes General: appearance normal, both eyes and all related structures Visual Esp[place]: normal visual españa by confrontation Neck Neck: Yes supple and Yes no JVD Resp Effort & Inspection: normal respiratory effort and respiratory effort not decreased Auscultation: rhonchi Cardio Palpation: no palpable S3 and no palpable S4 Heart sounds: no rubs GI Inspection: Yes normal to inspection Palpation (GI): Soft to palpation Percussion: Yes normal to percussion Auscultation: normal bowel sounds General: No CVA tenderness Back/Spine/Pelvis Back: No CVA tenderness Skin General skin exam: no petechiae and no purpura Neuro General: patient oriented x3 and no focal motor deficits Extrem Other: Erythema in both lower extremities with tenderness General: No clubbing and Yes edema (Improved but still with the erythema, not warm or tender) Results Reviewed Nephrology Results: Sodium 142 mmol/L (135-145) 09/09/24 Potassium 4.1 mmol/L (3.3-5.1) 09/09/24 Chloride 107 mmol/L (96-108) 09/09/24 Carbon Dioxide 25 mmol/L (22-29) 09/09/24 BUN 29 mg/dL (9-16) H 09/09/24 Creatinine 1.74 mg/dL (0.5-1.4) H 09/09/24 Calcium 9.0 mg/dL (8.4-10.2) 09/09/24 Assessment & Plan Assessment & Plan (1) Edema leg: Comment: chronic from venous insufficiency Code(s): R60.0 - Localized edema Category: Medical (2) CKD (chronic kidney disease): Code(s): N18.9 - Chronic kidney disease, unspecified Category: Medical Qualifiers: Chronic kidney disease stage: unspecified stage Qualified Code(s): N18.9 - Chronic kidney disease, unspecified (3) Edema: Code(s): R60.9 - Edema, unspecified Category: Medical (4) Carotid stenosis, bilateral: Code(s): I65.23 - Occlusion and stenosis of bilateral carotid arteries Category: Medical (5) Hypertension: Code(s): I10 - Essential (primary) hypertension Category: Medical Qualifiers: Hypertension type: primary hypertension Qualified Code(s): I10 - Essential (primary) hypertension Plan . 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 Superimposed CHATO due to hypoperfusion in the setting of LATONIA inhibitors and di uretics. Creatinine is improved and down to 1.9 from 3.3 with cautious diuresis cr stable around 1.7 since jan 2024 Renal ultrasonogram was unremarkable No significant proteinuria serum immunofixation shows IgG kappa monoclonal protein Urinary sediments are bland therefore glomerular/ interstitial disease seem unlikely Echocardiogram revealed normal right ventricular pressures without evidence of right heart failure Serum albumin was relatively low at 3.1. Mild elevation in alkaline phosphatase and ALT; repeat LFTs were normal Keep current dose of LAsix QOD Stay on low-sodium diet. Leg elevation would avoid calcium channel blockers like amlodipine Agree with holding LATONIA inhibitors for now . Medications: Refilled metolazone 2.5 mg PO .1x week 10 tabs 1RF furosemide 40 mg PO Q OTHER DAY 90 tabs 0RF Coding Level of Care Code Est Pt Level 4 (35498) Diagnoses Edema leg R60.0 Chronic kidney disease, unspecified CKD stage N18.9 Chronic kidney disease stage: unspecified stage Edema R60.9 Carotid stenosis, bilateral I65.23 Primary hypertension I10 Hypertension type: primary hypertension
[2024-09-10 13:23] VITALS: BP 138/60; PULSE 77; O2SAT 95; BMI 34.6
--- OUTSIDE RECORDS SUMMARY | 2024-09-10 15:36 | XMS_ITS | Continuity of Care Document ---
Author Name [facility] Organization [facility] Care Team Providers Care Cyber Special Agent Name Role Phone [facility] Unavailable Unavailable Medications Combined list of outpatient [...] INHALATION, LUPIN PHARMACEU, 8.5 g CANISTER Active [id number] 4 2023 8.5 Pharmac y Data Transac tion Service Facilit y AMLODIPINE BESYLATE (AMLODIPINE BESYLATE), 5 MG, TABLET, ORAL, [employer], 1000 ea. BOTTLE Active [id number] 4 2023 90 Pharmac y Data Transac tion Service Facilit y ARFORMOTERO L TARTRATE (arformoter ol tartrate), 15MCG/2ML, VIAL-NEB, INHALATION, LIFESTAR PHARMA, 2 ml VIAL Active [id number] 4 2023 360 Pharmac y Data Transac tion Service Facilit y Benzonatate ([employer]) 100 CAPSULE in 1 BOTTLE Active [id number] 09/07/19 2 4 2023 30 Pharmac y Data Transac tion Service Facilit y BUMETANIDE (BUMETANIDE ), 0.5MG, TABLET, ORAL, [facility], 100 ea. BOTTLE Active [id number] 4 2023 30 Pharmac y Data Transac tion Service Facilit y BUMETANIDE (BUMETANIDE ), 0.5MG, TABLET, ORAL, [facility], 100 ea. BOTTLE Active [id number] 4 2023 30 Pharmac y Data Transac tion Service Facilit y Cefpodoxime Proxetil (Cefpodoxim e Proxetil), 200mg, Tablet, Oral, Sandoz, 20 Ea. Bottle Active [id number] 4 2023 20 Pharmac y Data Transac tion Service Facilit y DOXYCYCLINE HYCLATE (DOXYCYCLIN E HYCLATE), 100 MG, CAPSULE, ORAL, WEST-OLVERA,I NC., 500 ea. BOTTLE Active [id number] 4 2023 20 Pharmac y Data Transac tion Service Facilit y DOXYCYCLINE MONOHYDRATE (DOXYCYCLIN E MONOHYDRATE ), 100 MG, CAPSULE, ORAL, LUPIN PHARMACEU, 50 ea. BOTTLE Active [id number] 4 2023 6 Pharmac y Data Transac tion Service Facilit y FUROSEMIDE (furosemide ), 20 MG, TABLET, ORAL, AVKARE, 1000 ea. BOTTLE Cancele d [id number] : 2023 0 Pharmac y Data Transac tion Service Facilit y FUROSEMIDE (furosemide ), 20 MG, TABLET, ORAL, AVKARE, 1000 ea. BOTTLE Active [id number] 4 2023 45 Pharmac y Data Transac tion Service Facilit y LEVALBUTERO L HCL (levalbuter ol HCl), 1.25MG/3ML, VIAL-NEB, INHALATION, AMNEAL PHARMACE, 3 ml VIAL Cancele d [id number] : 2023 0 Pharmac y Data Transac tion Service Facilit y LEVALBUTERO L HCL (levalbuter ol HCl), 1.25MG/3ML, VIAL-NEB, INHALATION, TEVA [facility], 3 ml VIAL Cancele d [id number] : 2023 0 Pharmac y Data Transac tion Service Facilit y METOPROLOL SUCCINATE (metoprolol succinate), 100 MG, TAB ER 24H, ORAL, [employer] 1000 ea. BOTTLE Cancele d [id number] : 2023 0 Pharmac y Data Transac tion Service Facilit y METOPROLOL SUCCINATE (metoprolol succinate), 100 MG, TAB ER 24H, ORAL, [employer] 1000 ea. BOTTLE Active [id number] 4 2023 90 Pharmac y Data Transac tion Service Facilit y PREDNISONE (prednisone ), 10 MG, TABLET, ORAL, AMNEAL PHARMACE, 100 ea. BOTTLE Active [id number] 4 2023 60 Pharmac y Data Transac tion Service Facilit y PREDNISONE (prednisone ), 10 MG, TABLET, ORAL, NOVITIUM/AN I PH, 100 ea. BOTTLE Active [id number] 4 2023 63 Pharmac y Data Transac tion Service Facilit y PREDNISONE (prednisone ), 10 MG, TABLET, ORAL, STRIDES PHARMA, 500 ea. BOTTLE Active [id number] 4 2023 120 Pharmac y Data Transac tion Service Facilit y PREDNISONE (PREDNISONE ), 20MG, TABLET, ORAL, [employer], 500 ea. BOTTLE Active [id number] 2023 8 Pharmac y Data Transac tion Service Facilit y ROFLUMILAST (roflumilas t), 500 MCG, TABLET, ORAL, [employer]OZ [facility], 30 ea. BOTTLE Active [id number] 4 2023 90 Pharmac y Data Transac tion Service Facilit y TAMSULOSIN HCL (TAMSULOSIN HCL), 0.4 MG, CAP.SR 24H, ORAL, ZYDUS PHARMACEU, 1000 ea. BOTTLE Active [id number] 4 2023 180 Pharmac y Data Transac tion Service Facilit y Social History Combined list of available smoking, tobacco, and other social history from Department of Defense and Veterans Affairs facilities. Social History Type Response Date Comment Sour e This section is an empty social history section. DoD
== END 2024-09-10 13:45 | disposition home or self-care (01) ==
LOC: HO.HKA 13:16
PROVIDERS: PCP Family Medicine; Visit Provider Internal Medicine Hypertension Specialist
DX: R60.0 Localized edema (principal); I12.9 Hypertensive chronic kidney disease with stage 1 through stage 4 chronic kidney disease, or unspecified chronic kidney disease; N18.9 Chronic kidney disease, unspecified; I65.23 Occlusion and stenosis of bilateral carotid arteries
CPT/HCPCS: 99214

== ENCOUNTER → 2024-09-10 13:15 | Outpatient (BNVA) | payer MEDICARE, OTHER, SELFPAY | PROVIDERS: PCP Family Medicine; Visit Provider Internal Medicine Hypertension Specialist | DX: I12.9 Hypertensive chronic kidney disease with stage 1 through stage 4 chronic kidney disease, or unspecified chronic kidney disease (principal); N18.9 Chronic kidney disease, unspecified; I73.9 Peripheral vascular disease, unspecified; R60.0 Localized edema; I65.23 Occlusion and stenosis of bilateral carotid arteries | CPT/HCPCS: 99212 ==

== ENCOUNTER 2024-10-19 10:45 | Outpatient (AMB) | payer MEDICARE, OTHER, SELFPAY ==
--- NOTE | 2024-10-19 11:02 | MHC.OFFVIS ---
Vital Signs 10/19/24 11:04 Height 5 ft 9 in Weight 243 lb 6.245 oz BMI 35.9 BP 130/62 Blood Pressure Location Lt brachial Position Sitting Pulse 79 Pulse Source Monitor Intake Visit Reasons: 1 yr f/up Intake Note: 1 yr f/up Ambulance Mechanic Required: No Accompanied by: Self / Same As Patient Allergies watermelon [WATERMELON] Allergy (Severe, Verified 09/10/24 13:23) ANAPHYLAXIS Iodinated Contrast Media [IV CONTRAST] Allergy (Intermediate, Verified 09/10/24 13:23) LIGHT HEADED AND SHORTNESS OF BREATH Medication List - Last Reconciled 10/19/24 by Sanjay Seymour MD albuterol sulfate 90 mcg/actuation 2 puffs inhalation QID PRN apixaban (Eliquis) 5 mg PO BID arformoterol (Brovana) 15 mcg (2 mL) inhalation BID atorvastatin 80 mg PO DAILY benzonatate 100 mg PO BID-TID PRN blood pressure monitor Automatic, Digital. Dx: I10. Daily As directed, 999 days/lifetime budesonide 0.5 mg (2 mL) inhalation BID bupropion HCl 150 mg (2 x 75 mg) PO BID 90 days CPAP (CPAP Machine/Device) As directed dronedarone (Multaq) 400 mg PO BID furosemide 40 mg PO Q OTHER DAY guaifenesin ER (Mucinex) 600 mg PO BID levalbuterol HCl 1.25 mg (3 mL) inhalation BID 90 days losartan 37.5 mg (1.5 x 25 mg) PO DAILY 90 days metolazone 2.5 mg PO .1x week metoprolol succinate ER 100 mg PO DAILY montelukast 10 mg PO DAILY nebulizers As directed Oxygen Home Use As directed prednisone 10 mg (2 x 5 mg) PO DAILY 90 days roflumilast 500 mcg PO DAILY tamsulosin (Flomax) 0.4 mg PO BID 90 days tezepelumab-ekko (Tezspire) 210 mg subcut Q4W tiotropium bromide 2.5 mcg/actuation (Spiriva Respimat) 2 puffs inhalation DAILY 90 days tiotropium bromide 2.5 mcg/actuation (Spiriva Respimat) 2 puffs inhalation DAILY 30 days [facility] Medical History Nocturnal hypoxia CHF (congestive heart failure) Chronic lung disease COPD with acute exacerbation Chronic lung disease Chronic lung disease Tubular adenoma of colon (~2005) COPD (chronic obstructive pulmonary disease) Pulmonary nodules RAYMOND on CPAP Chronic rhinitis Asthma-COPD overlap syndrome PAF (paroxysmal atrial fibrillation) (~2017) Echocardiogram abnormal Encounter for screening for lung cancer Edema leg Venous insufficiency of both lower extremities AC (acromioclavicular) joint arthritis BPH (benign prostatic hyperplasia) Seasonal allergies Hyperlipidemia Surgical History (Reviewed 10/19/24 @ 11:05 by Rosy Burciaga [facility]) History of appendectomy History of esophagogastroduodenoscopy (EGD) History of total left hip replacement (~2019) History of repair of right rotator cuff (~2017) History of nasal septoplasty (~2008) History of colonoscopy History of cataract (~2009) Family History Father No problems noted. Mother CAD (coronary artery disease) CHF (congestive heart failure) HTN (hypertension) Brother No problems noted. Brother No problems noted. Sister No problems noted. Sister No problems noted. Sister Mental health disorder Son No problems noted. Son No problems noted. Social History (Reviewed 10/19/24 @ 11:05 by Rosy Burciaga [facility]) Household Members: Spouse, Family and Children Housing: House Do you presently have visiting nurse or other home services: No Alcohol intake: current Alcohol intake frequency: holidays/special occasions only Patient Tobacco Use Status: Former Tobacco user Tobacco use type: Cigarette Years Smoked: 40 years e-Cigarette/Vaping Use: Former Use Second Hand Smoke Exposure: No Advance Directives Date on File: 10/10/22 service: Yes Current occupational status: retired Cognitive needs: No Hearing needs: No Vision needs: No Review of Systems Const Denies chills, Denies fatigue, Denies fever(s), Denies frequent falls, Denies weakness, Denies weight gain and Denies weight loss ENT Denies dizziness Card Denies chest pain, Denies leg edema, Denies lightheadedness, Denies palpitations, Denies dyspnea and Denies dyspnea on exertion Resp Denies cough, Denies dyspnea and Denies dyspnea on exertion GI Denies hematochezia Musc Denies abnormal gait, Denies muscle weakness, Denies numbness, Denies radiating pain into limb and Denies tingling Neuro Denies abnormal gait, Denies dizziness, Denies frequent falls, Denies numbness, Denies tingling and Denies weakness Endo Denies fatigue and Denies palpitations Physical Exam Vital Signs: Last Vital Signs Pulse 79 10/19/24 11:04 BP 130/62 10/19/24 11:04 BMI result Body Mass Index 35.9 GENERAL APPEARANCE: in no acute distress, pleasant. NECK: no carotid bruit, no jugular venous distention. SKIN: no suspicious lesions, warm and dry. HEART: no murmurs, regular rate and rhythm. LUNGS: clear to auscultation bilaterally. ABDOMEN: soft, nontender. EXTREMITIES: 1 to 2+ edema. PERIPHERAL PULSES: equal. NEUROLOGIC: No gross deficits, AAO X 3 Office Procedures EKG Details: Sinus rhythm 79 beats per minute, normal axis, normal ECG, QTC 408 milliseconds. [id number], Complete Assessment & Plan Assessment & Plan (1) PAF (paroxysmal atrial fibrillation): Onset Date: ~2017 Code(s): I48.0 - Paroxysmal atrial fibrillation Category: Medical Plan [age] year gentleman who is here for follow-up. He has background history of COPD and dyspnea on exertion due to lung disease. He has vascular disease with bilateral carotid stenosis in the past. Currently on anticoagulation with apixaban and on Multaq for rhythm control strategy. EKGs showing sinus rhythm. Overall clinically stable. He has chronic lower extremity edema and is currently taking Lasix 40 mg every other day. He is saying that if he takes it daily he gets significant cramping in his body. He is also taking metolazone once a week. He follows with Nephrology closely. He does not have significant proteinuria. Clinically not in heart failure also. We will continue Multaq for now. If any concerns about heart failure come in the future then Multaq has to be discontinued as it should not be used in patient with heart failure. Thank you for allowing me to participate in the care of your patient. Please feel free to contact me if you have any questions. Coding Level of Care Code Est Pt Level 4 (45048) Diagnoses PAF (paroxysmal atrial fibrillation) I48.0 CPT Codes EKG - CPT: 85774-[id number], Complete ([id number])
[2024-10-19 11:04] VITALS: BP 130/62; PULSE 79; BMI 35.9
--- OUTSIDE RECORDS SUMMARY | 2024-10-19 11:52 | XMS_ITS | Continuity of Care Document ---
Author Name [facility] Organization [facility] Care Team Providers Care Business System Consultant Name Role Phone [facility] Unavailable Unavailable Medications Combined list of outpatient [...] INHALATION, LUPIN PHARMACEU, 8.5 g CANISTER Active [id number] 4 2023 8.5 Pharmac y Data Transac tion Service Facilit y AMLODIPINE BESYLATE (AMLODIPINE BESYLATE), 5 MG, TABLET, ORAL, [employer], 1000 ea. BOTTLE Active [id number] 4 2023 90 Pharmac y Data Transac tion Service Facilit y ARFORMOTERO L TARTRATE (arformoter ol tartrate), 15MCG/2ML, VIAL-NEB, INHALATION, LIFESTAR PHARMA, 2 ml VIAL Active [id number] 2023 360 Pharmac y Data Transac tion Service Facilit y Benzonatate ([employer]) 100 CAPSULE in 1 BOTTLE Active [id number] 09/07/19 2 4 2023 30 Pharmac y Data Transac tion Service Facilit y BUMETANIDE (BUMETANIDE ), 0.5MG, TABLET, ORAL, [facility], 100 ea. BOTTLE Active [id number] 4 2023 30 Pharmac y Data Transac tion Service Facilit y BUMETANIDE (BUMETANIDE ), 0.5MG, TABLET, ORAL, [facility], 100 ea. BOTTLE Active [id number] 4 2023 30 Pharmac y Data Transac tion Service Facilit y Cefpodoxime Proxetil (Cefpodoxim e Proxetil), 200mg, Tablet, Oral, Sandoz, 20 Ea. Bottle Active [id number] 4 2023 20 Pharmac y Data Transac tion Service Facilit y DOXYCYCLINE HYCLATE (DOXYCYCLIN E HYCLATE), 100 MG, CAPSULE, ORAL, WEST-OLVERA,I NC., 500 ea. BOTTLE Active [id number] 4 2023 20 Pharmac y Data Transac tion Service Facilit y DOXYCYCLINE MONOHYDRATE (DOXYCYCLIN E MONOHYDRATE ), 100 MG, CAPSULE, ORAL, LUPIN PHARMACEU, 50 ea. BOTTLE Active [id number] 4 2023 6 Pharmac y Data Transac tion Service Facilit y FUROSEMIDE (furosemide ), 20 MG, TABLET, ORAL, AVKARE, 1000 ea. BOTTLE Cancele d [id number] : 2023 0 Pharmac y Data Transac tion Service Facilit y FUROSEMIDE (furosemide ), 20 MG, TABLET, ORAL, AVKARE, 1000 ea. BOTTLE Active [id number] 4 2023 45 Pharmac y Data Transac tion Service Facilit y LEVALBUTERO L HCL (levalbuter ol HCl), 1.25MG/3ML, VIAL-NEB, INHALATION, AMNEAL PHARMACE, 3 ml VIAL Cancele d [id number] : 2023 0 Pharmac y Data Transac tion Service Facilit y LEVALBUTERO L HCL (levalbuter ol HCl), 1.25MG/3ML, VIAL-NEB, INHALATION, TEVA [facility], 3 ml VIAL Cancele d [id number] : 2023 0 Pharmac y Data Transac tion Service Facilit y PREDNISONE (prednisone ), 10 MG, TABLET, ORAL, AMNEAL PHARMACE, 100 ea. BOTTLE Active [id number] 4 2023 60 Pharmac y Data Transac tion Service Facilit y PREDNISONE (prednisone ), 10 MG, TABLET, ORAL, NOVITIUM/AN I PH, 100 ea. BOTTLE Active [id number] 2023 63 Pharmac y Data Transac tion Service Facilit y PREDNISONE (prednisone ), 10 MG, TABLET, ORAL, STRIDES PHARMA, 500 ea. BOTTLE Active [id number] 4 2023 120 Pharmac y Data Transac tion Service Facilit y PREDNISONE (PREDNISONE ), 20MG, TABLET, ORAL, [employer], 500 ea. BOTTLE Active [id number] 4 2023 8 Pharmac y Data Transac tion Service Facilit y TAMSULOSIN HCL (TAMSULOSIN HCL), 0.4 MG, CAP.SR 24H, ORAL, ZYDUS PHARMACEU, 1000 ea. BOTTLE Active [id number] 2023 180 Pharmac y Data Transac tion Service Facilit y Social History Combined list of available smoking, tobacco, and other social history from Department of Defense and Veterans Affairs facilities. Social History Type Response Date Comment [facility] e This section is an empty social history section. DoD
== END 2024-10-19 11:49 | disposition home or self-care (01) ==
LOC: HO.HCS 10:47
PROVIDERS: PCP Family Medicine; Visit Provider Internal Medicine Cardiovascular Disease
DX: I48.0 Paroxysmal atrial fibrillation (principal)
CPT/HCPCS: 93010; 99214

== ENCOUNTER → 2024-10-19 10:45 | Outpatient (BNVA) | payer MEDICARE, OTHER, SELFPAY | PROVIDERS: PCP Family Medicine; Visit Provider Internal Medicine Cardiovascular Disease | DX: I48.0 Paroxysmal atrial fibrillation (principal); Z87.891 Personal history of nicotine dependence | CPT/HCPCS: 93005; 99212 ==

== ENCOUNTER 2024-10-21 09:12 | Outpatient (AMB) | payer MEDICARE, OTHER, SELFPAY ==
[2024-10-21 09:28] VITALS: BP 124/44; PULSE 83; O2SAT 95; BMI 36.1
--- NOTE | 2024-10-21 09:28 | A.OFFVIS_ITS ---
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 He has been using CPAP therapy the CPAP therapy has been very affecting beneficial. The CPAP therapy he uses every night for more than 4 hours. Recently he did have a CT scan of his chest for the lung cancer screening program and is nodular densities have resolved which is very reassuring. He is scheduled for the CT scan in a year's time. I am hopeful that we can decrease the amount of Xopenex that he is using and then hopefully decrease the amount of budesonide that he is using. His CPAP therapy has been affecting beneficial. He has been getting supplies through [employer] now regularly. His CPAP therapy he does use for more than 4 hours a night. He has lost about 30 lb. He still on Daliresp that is likely contributing to that. If he co 08/28/2023 the patient is here for sick visit. He is having hard time with his breathing. The patient recently call the office with worsening risk was sent to the ER. He wants admitted on August 04 to the hospital. He had a chest x-ray demonstrating bilateral pneumonia. This is superimposed on his underlying interstitial lung disease. He was treated with prednisone addition to antibiotics subsequently discharged. He did not require oxygen upon discharge. The patient has been weaning off the prednisone down to 10 mg of prednisone having hard time with his breathing. He is then in bed now for about 3 days. His coughing has gotten worse expectorating discolored mucus. Denies any hemoptysis. In the office he does have significant wheezing chest tightness. Will go ahead and give him a couple treatments of DuoNeb. Hopefully we can improve his respiratory symptoms we can start antibiotics and give him additional Solu-Medrol and prednisone for home. If however he does not improve after the breathing treatments then will consider transferring him to the ER. 09/18/2023 the patient is here for a pulmonary follow-up visit. The patient recently was hospitalized because of the bad bronchopneumonia and asthma exacerbation. He is now recovering. He feels a little better although starting to get chest tightness again. He has been using prednisone 20 mg daily in his also been using all his respiratory medicines. He is also developing some lower extremity edema swelling redness. Is tender to the touch. It appears to be bilateral cellulitis. I did review his chest x-ray he did have run this is a week ago and compared to the x-ray he had when he was admitted to the hospital still demonstrates hazy opacities suggesting some component of pneumonitis. Therefore will increase the prednisone and also will keep him on some antibiotics to treat him for cellulitis. He will return in 3-4 weeks. If he has any worsening symptoms he will call prior to that visit. 10/07/2023 the patient is here for a pulmonary follow-up visit. The patient is feeling lot better. He is recovering now closer to his baseline. He is down to 20 mg of prednisone. He would like to come off. However, will need to very careful as we wean off slowly. Therefore will decrease by 5 mg every 7-10 days. Hopefully he can come off completely. He continues on his respiratory therapy with good effect. He also continues with CPAP using more than 4 hours a night. The CPAP therapy continues to be affecting beneficial. The lower extremity edema as a little better he continues to have some degree of erythema but it does not look infected anymore. He did complete the doxycycline. Otherwise patient is doing better so therefore we will continue his current respiratory regimen and hopefully we can wean off completely from the prednisone. Will follow-up in 4 months. 04/15/2024 the patient is here for a pulmonary follow-up visit. Overall he is doing okay. Does complaint of dyspnea on exertion. Sometimes he is so short of breath that he goes to his home in uses his oxygen via his concentrator. Which is the portability outside of the home. The patient also has been dealing with renal failure. This kidney now is back to baseline although does have some chronic renal insufficiency. The patient continues on injections, Tezspire. He gets them through his warranty coordinator. He has been developing increasing infections. Therefore we will be talking to his warranty coordinator regarding switching his biologic to a different regimen. I do believe does good options specially if he continues with significant COPD and wheezing symptoms. The patient did have a walking oximetry in the office and he did desaturate down to 88% with activity was visibly dyspneic and the heart rate went up to 120 beats per minute. Dyspnea score 7/10. 2 L pulse with sufficient to keep his oxygen around 94 % with activity. He already has oxygen through [employer] as the concentrator home. He will need portability. I will request a portable oxygen concentrator for him to use for better portability outside of the home. Also he will continue to use his CPAP at home. We did review his sleep study. We had requested a titration study but it looks like they just did a regular sleep. Therefore, will have him do an overnight oximetry on room air to see if he still needs the oxygen at nighttime. 07/16/2024 the patient is here for a pulmonary follow-up visit. He has been struggling now for several weeks. He has had worsening cough shortness of breath chest tightness. Moderate to severe. He has been using his nebulizer regularly 2 to 4 times a day and has been continued his other medicines. The patient did run out of his prednisone though. He was trying to wean himself off it. Right now he does have significant chest tightness and wheezing. Explained to him that he probably have to stay on a small dose of prednisone regularly to avoid his severe exacerbations. In the meantime he is using the CPAP the CPAP therapy continues to be affecting beneficial. He is using it with oxygen. Will have to do an overnight oximetry on room air to see if he does not need the oxygen any longer while sleeping. He can do that whenever he is feeling better. He continues on the biologic therapy, Tezspire. He is going to be following up soon with his warranty coordinator to see if any further changes need to take place. 08/10/2024 the patient is here for pulmonary follow-up visit. Overall he is feeling a lot better. He is down to 10 mg of prednisone. He is going on a cruise next weeks. At this point will go ahead and optimize his respiratory therapy by adding Spiriva to his regimen. He also needs any nebulizer since is broken. Will send a prescription to the local [employer] company. Hopefully can get a before his trip. The patient continues to CPAP therapy. The CPAP therapy continues to be affecting beneficial he does use it for more than 4 hours. He will take the CPAP with him. He also continues on the biologic therapy, Tezspire with good results. Right now the patient continues to have a little wh eezing on exam but closer to his baseline. I am hopeful that the long-acting muscarinic antagonist be helpful. Will follow-up in a couple months. After he gets back from his trip he can start decreasing the prednisone some. But hopefully will stay on small dose and try to find the lowest most effective dose. 10/21/2024 the patient is here for pulmonary follow-up visit. She is still struggling with breathing. He had to increase the prednisone to 20 mg because he was having worsening breathing. He continues on the Tezspire. He needs to follow-up with Allergy immunology to see if he has a better candidate for Dupixent. He already tried and failed Fasenra. In the meantime the patient has been using nebulized therapy with Brovana and budesonide in addition to the albuterol. The patient is still struggling even with all those breathing treatments. Will did talk about starting Ohtuvayre. This will be a better option for him to try to minimize steroid in the prednisone dose is too high for him. Ideally we can start him on the nebulized therapy and subsequently we can also transitioning to inhalers so he does not have to take some any nebulized treatments a day. He continues uses CPAP at nighttime with good effect. CPAP therapy has been affecting beneficial. He does use it for more than 4 hours a night. Although initially he did have an overnight test demonstrating he did in the oxygen but he is now waking up short of breath and felt better on the oxygen so he went back on it. He also has the oxygen portable oxygen concentrator that he uses with activity outside of the home that is also been affecting beneficial. [facility] Medical History Nocturnal hypoxia CHF (congestive heart failure) Chronic lung disease COPD with acute exacerbation Chronic lung disease Chronic lung disease Tubular adenoma of colon (~2005) COPD (chronic obstructive pulmonary disease) Pulmonary nodules RAYMOND on CPAP Chronic rhinitis Asthma-COPD overlap syndrome PAF (paroxysmal atrial fibrillation) (~2017) Echocardiogram abnormal Encounter for screening for lung cancer Edema leg Venous insufficiency of both lower extremities AC (acromioclavicular) joint arthritis BPH (benign prostatic hyperplasia) Seasonal allergies Hyperlipidemia Surgical History History of appendectomy History of esophagogastroduodenoscopy (EGD) History of total left hip replacement (~2019) History of repair of right rotator cuff (~2017) History of nasal septoplasty (~2008) History of colonoscopy History of cataract (~2009) Family History Father No problems noted. Mother CAD (coronary artery disease) CHF (congestive heart failure) HTN (hypertension) Brother No problems noted. Brother No problems noted. Sister No problems noted. Sister No problems noted. Sister Mental health disorder Son No problems noted. Son No problems noted. Social History Household Members: Spouse, Family and Children Housing: House Do you presently have visiting nurse or other home services: No Alcohol intake: current Alcohol intake frequency: holidays/special occasions only Patient Tobacco Use Status: Former Tobacco user Tobacco use type: Cigarette Years Smoked: 40 years e-Cigarette/Vaping Use: Former Use Second Hand Smoke Exposure: No Advance Directives Date on File: 10/10/22 service: Yes Current occupational status: retired Cognitive needs: No Hearing needs: No Vision needs: No Review of Systems Const Denies fatigue Eyes Denies change in vision ENT Reports nasal congestion, Reports nasal discharge and Denies sore throat Card Denies chest pain and Reports dyspnea on exertion Resp Reports cough, Denies hemoptysis, Reports dyspnea on exertion and Reports wheezing GI Reports no additional complaints Musc Reports no additional complaints Skin/Breast Denies rash Neuro Reports no additional complaints Psych Reports no additional complaints Endo Denies fatigue and Denies heat intolerance Kelvin/Lymph Denies easy bleeding, Denies easy bruising and Denies lymphadenopathy Aller/Immun Reports wheezing Physical Exam Vital Signs: Last Vital Signs Pulse 83 10/21/24 09:28 BP 124/44 L 10/21/24 09:28 Pulse Ox 95 10/21/24 09:28 Oxygen Delivery Method Room Air 10/21/24 09:28 BMI result Body Mass Index 36.1 Const General: comfortable and alert Orientation/consciousness: patient oriented x3 Eyes Pupils: Equal, round and reactive pupils present Neck Neck: Yes normal visual inspection, Yes full ROM and Yes no lymphadenopathy Chest Chest palpation & inspection: normal inspection of the chest Resp Effort & Inspection: normal respiratory effort and prolonged expiratory phase Auscultation: wheezes and diminished lung sounds Cardio Rate: regular rate Rhythm: regular rhythm Heart sounds: S1 normal heart sound present and S2 normal heart sound present GI Palpation (GI): Soft to palpation and nontender Auscultation: normal bowel sounds General: Yes no CVA tenderness Back/Spine/Pelvis Back: no CVA tenderness Skin General skin exam: no rashes or lesions noted Neuro General: patient oriented x3 Cranial nerves: Yes Equal, round and reactive pupils present Extrem General: Yes no clubbing, cyanosis or edema Assessment & Plan Assessment & Plan (1) COPD (chronic obstructive pulmonary disease): Code(s): J44.9 - Chronic obstructive pulmonary disease, unspecified Category: Medical Qualifiers: COPD type: chronic bronchitis Chronic bronchitis type: mixed simple and mucopurulent Qualified Code(s): J41.8 - Mixed simple and mucopurulent chronic bronchitis (2) Asthma-COPD overlap syndrome: Code(s): J44.9 - Chronic obstructive pulmonary disease, unspecified Category: Medical (3) Pulmonary nodules: Code(s): R91.8 - Other nonspecific abnormal finding of lung field Category: Medical (4) RAYMOND on CPAP: Code(s): G47.33 - Obstructive sleep apnea (adult) (pediatric); Z99.89 - Dependence on other enabling machines and devices Category: Medical (5) Chronic rhinitis: Code(s): J31.0 - Chronic rhinitis Category: Medical (6) Nocturnal hypoxia: Code(s): G47.34 - Idiopathic sleep related nonobstructive alveolar hypoventilation Category: Medical Plan continue Tezspire [id number], Will call Dr Ornelas about changing Biologic Add Ohtuvayre nebs BID continue Brovana/BUdesonide BID. If approved on Ohtuvayre will chage to Elizabeth continue Spiriva continue Prednisone 20mg, will taper 10mg ANN as needed continue APAP, adjusted pressures 6-12 oxygen with activity: POC 2L/min with activity. Requesting POC for better portability outside of the home continue oxygen supplementation while sleeping with CPAP. F/U 3-4 months Coding Level of Care Code Est Pt Level 4 (36737) Complex EM visit Add On G2211 Diagnoses Mixed simple and mucopurulent chronic bronchitis J41.8 COPD type: chronic bronchitis Chronic bronchitis type: mixed simple and mucopurulent Asthma-COPD overlap syndrome J44.9 Pulmonary nodules R91.8 RAYMOND on CPAP G47.33; Z99.89 Chronic rhinitis J31.0 Nocturnal hypoxia G47.34 Time Spent (min) 17
--- OUTSIDE RECORDS SUMMARY | 2024-10-21 09:39 | XMS_ITS | Continuity of Care Document ---
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 BOTTLE Active [id number] 4 2023 90 Pharmac y Data Transac tion Service Facilit y ARFORMOTERO L TARTRATE (arformoter ol tartrate), 15MCG/2ML, VIAL-NEB, INHALATION, LIFESTAR PHARMA, 2 ml VIAL Active [id number] 4 2023 360 Pharmac y Data Transac tion Service Facilit y Benzonatate ([employer]) 100 CAPSULE in 1 BOTTLE Active [id number] 09/07/19 2 4 2023 30 Pharmac y Data Transac tion Service Facilit y BUMETANIDE (BUMETANIDE ), 0.5MG, TABLET, ORAL, [facility], 100 ea. BOTTLE Active [id number] 4 2023 30 Pharmac y Data Transac tion Service Facilit y BUMETANIDE (BUMETANIDE ), 0.5MG, TABLET, ORAL, [facility], 100 ea. BOTTLE Active [id number] 4 2023 30 Pharmac y Data Transac tion Service Facilit y Cefpodoxime Proxetil (Cefpodoxim e Proxetil), 200mg, Tablet, Oral, Sandoz, 20 Ea. Bottle Active [id number] 4 2023 20 Pharmac y Data Transac tion Service Facilit y DOXYCYCLINE HYCLATE (DOXYCYCLIN E HYCLATE), 100 MG, CAPSULE, ORAL, [place],I NC., 500 ea. BOTTLE Active [id number] 4 2023 20 Pharmac y Data Transac tion Service Facilit y DOXYCYCLINE MONOHYDRATE (DOXYCYCLIN E MONOHYDRATE ), 100 MG, CAPSULE, ORAL, LUPIN PHARMACEU, 50 ea. BOTTLE Active [id number] 4 2023 6 Pharmac y Data Transac tion Service Facilit y FUROSEMIDE (furosemide ), 20 MG, TABLET, ORAL, AVKARE, 1000 ea. BOTTLE Cancele d [id number] : 2023 0 Pharmac y Data Transac tion Service Facilit y FUROSEMIDE (furosemide ), 20 MG, TABLET, ORAL, AVKARE, 1000 ea. BOTTLE Active [id number] 4 2023 45 Pharmac y Data Transac tion Service Facilit y LEVALBUTERO L HCL (levalbuter ol HCl), 1.25MG/3ML, VIAL-NEB, INHALATION, AMNEAL PHARMACE, 3 ml VIAL Cancele d [id number] : 2023 0 Pharmac y Data Transac tion Service Facilit y LEVALBUTERO L HCL (levalbuter ol HCl), 1.25MG/3ML, VIAL-NEB, INHALATION, [facility], 3 ml VIAL Cancele d [id number] : 2023 0 Pharmac y Data Transac tion Service Facilit y PREDNISONE (prednisone ), 10 MG, TABLET, ORAL, AMNEAL PHARMACE, 100 ea. BOTTLE Active [id number] 4 2023 60 Pharmac y Data Transac tion Service Facilit y PREDNISONE (prednisone ), 10 MG, TABLET, ORAL, NOVITIUM/AN I PH, 100 ea. BOTTLE Active [id number] 4 2023 63 Pharmac y Data Transac tion Service Facilit y PREDNISONE (prednisone ), 10 MG, TABLET, ORAL, STRIDES PHARMA, 500 ea. BOTTLE Active [id number] 4 2023 120 Pharmac y Data Transac tion Service Facilit y PREDNISONE (PREDNISONE ), 20MG, TABLET, ORAL, CADISTA PHARMAC, 500 ea. BOTTLE Active [id number] 4 2023 8 Pharmac y Data Transac tion Service Facilit y TAMSULOSIN HCL (TAMSULOSIN HCL), 0.4 MG, CAP.SR 24H, ORAL, ZYDUS PHARMACEU, 1000 ea. BOTTLE Active [id number] 4 2023 180 Pharmac y Data Transac tion Service Facilit y Social History Combined list of available smoking, tobacco, and other social history from Department of Defense and Veterans Affairs facilities. Social History Type Response Date Comment [facility] e This section is an empty social history section. [employer]
== END 2024-10-21 09:51 | disposition home or self-care (01) ==
LOC: HO.HPS 09:16
PROVIDERS: PCP Family Medicine; Visit Provider Hospitalist
DX: J41.8 Mixed simple and mucopurulent chronic bronchitis (principal); J44.9 Chronic obstructive pulmonary disease, unspecified; R91.8 Other nonspecific abnormal finding of lung field; G47.33 Obstructive sleep apnea (adult) (pediatric); Z99.89 Dependence on other enabling machines and devices; J31.0 Chronic rhinitis; G47.34 Idiopathic sleep related nonobstructive alveolar hypoventilation
CPT/HCPCS: 99214; G2211

== ENCOUNTER → 2024-10-21 09:12 | Outpatient (BNVA) | payer MEDICARE, OTHER, SELFPAY | PROVIDERS: PCP Family Medicine; Visit Provider Hospitalist | DX: J41.8 Mixed simple and mucopurulent chronic bronchitis (principal); R93.89 Abnormal findings on diagnostic imaging of other specified body structures; G47.33 Obstructive sleep apnea (adult) (pediatric); G47.34 Idiopathic sleep related nonobstructive alveolar hypoventilation; R91.8 Other nonspecific abnormal finding of lung field; J31.0 Chronic rhinitis; Z99.89 Dependence on other enabling machines and devices; Z87.891 Personal history of nicotine dependence | CPT/HCPCS: 99212 ==

== ENCOUNTER 2024-10-31 11:11 | Outpatient (AMB) | payer MEDICARE, OTHER, SELFPAY ==
[2024-10-31 11:16] VITALS: BP 120/60; PULSE 86; TEMP 36.6; O2SAT 97; BMI 36.0
--- NOTE | 2024-10-31 11:16 | AM.OFFWIN_ITS ---
Intake Vital Signs 10/31/24 11:16 Height 5 ft 9 in Weight 244 lb BMI 36.0 BP 120/60 Blood Pressure Location Lt brachial Position Sitting Pulse 86 Pulse Source Pulse Oximeter Temp 97.8 F Temp Source Oral Pulse Oximetry (%) 97 Intake Visit Reasons: EP cannot lift lt arm, painful Patient Tobacco Use Status: Former Tobacco user Allergies watermelon [WATERMELON] Allergy (Severe, Verified 10/31/24 11:39) ANAPHYLAXIS Iodinated Contrast Media [IV CONTRAST] Allergy (Intermediate, Verified 10/31/24 11:39) LIGHT HEADED AND SHORTNESS OF BREATH Medication List - Last Reconciled 10/31/24 by Marilou Bartlett, [facility]- albuterol sulfate 90 mcg/actuation 2 puffs inhalation QID PRN apixaban (Eliquis) 5 mg PO BID arformoterol (Brovana) 15 mcg (2 mL) inhalation BID atorvastatin 80 mg PO DAILY blood pressure monitor Automatic, Digital. Dx: I10. Daily As directed, 999 days/lifetime budesonide 0.5 mg (2 mL) inhalation BID bupropion HCl 150 mg (2 x 75 mg) PO BID 90 days CPAP (CPAP Machine/Device) As directed dronedarone (Multaq) 400 mg PO BID furosemide 40 mg PO Q OTHER DAY levalbuterol HCl 1.25 mg (3 mL) inhalation BID 90 days losartan 37.5 mg (1.5 x 25 mg) PO DAILY 90 days metolazone 2.5 mg PO .1x week metoprolol succinate ER 100 mg PO DAILY montelukast 10 mg PO DAILY nebulizers As directed Oxygen Home Use As directed prednisone 10 mg (2 x 5 mg) PO DAILY 90 days roflumilast 500 mcg PO DAILY tamsulosin (Flomax) 0.4 mg PO BID 90 days tezepelumab-ekko (Tezspire) 210 mg subcut Q4W tiotropium bromide 2.5 mcg/actuation (Spiriva Respimat) 2 puffs inhalation DAILY 30 days Do you need a note to return to daycare/school/sports/work: No HPI HPI Comments History of Present Illness Details History of Present Illness - The patient is a 69-year-old male pres enting with acute left shoulder pain. - Acute pain following exertion with a l id at a [employer], he went to throw and immediately felt the left arm drop - Previous left shoulder post-rotator c uff surgery in 2004. - Inability to lift the arm; motion poss ible with pain. - No systemic symptoms reported. 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 Unable to move arm in forward flexion actively or passively; he does have normal extension, very limited ability for abduction. No pain over clavicle. Pain over posterior shoulder/scap feels pressure. No erythema or warmth to the joint. Review of Systems - Musculoskeletal: Reports acute left sh oulder pain and inability to lift the arm. - Other systems: No reports or denials n oted. Diagnostic results see below Assessment and Plan 1. Acute Left Shoulder Pain/ Grade 2 sep aration Consent Patient was informed and verbally consented to the use of an ambient scribe for clinic note documentation during this visit. Total time spent caring for the patient today was 40 minutes. This includes time spent before the visit reviewing the chart, time spent during the visit, and time spent after the visit on documentation, reviewing laboratory results, diagnostic imaging, medications, performing a medically necessary evaluation, counseling on diagnoses, care coordination, ordering appropriate tests, ordering appropriate medications, review of tests performed by other providers, reporting test results with the patient, communication with other healthcare providers. [facility] Medical History Nocturnal hypoxia CHF (congestive heart failure) Chronic lung disease COPD with acute exacerbation Chronic lung disease Chronic lung disease Tubular adenoma of colon (~2005) COPD (chronic obstructive pulmonary disease) Pulmonary nodules RAYMOND on CPAP Chronic rhinitis Asthma-COPD overlap syndrome PAF (paroxysmal atrial fibrillation) (~2017) Echocardiogram abnormal Encounter for screening for lung cancer Edema leg Venous insufficiency of both lower extremities AC (acromioclavicular) joint arthritis BPH (benign prostatic hyperplasia) Seasonal allergies Hyperlipidemia Surgical History History of appendectomy History of esophagogastroduodenoscopy (EGD) History of total left hip replacement (~2019) History of repair of right rotator cuff (~2017) History of nasal septoplasty (~2008) History of colonoscopy History of cataract (~2009) Family History Father No problems noted. Mother CAD (coronary artery disease) CHF (congestive heart failure) HTN (hypertension) Brother No problems noted. Brother No problems noted. Sister No problems noted. Sister No problems noted. Sister Mental health disorder Son No problems noted. Son No problems noted. Social History Household Members: Spouse, Family and Children Housing: House Do you presently have visiting nurse or other home services: No Alcohol intake: current Alcohol intake frequency: holidays/special occasions only Patient Tobacco Use Status: Former Tobacco user Tobacco use type: Cigarette Years Smoked: 40 years e-Cigarette/Vaping Use: Former Use Second Hand Smoke Exposure: No Advance Directives Date on File: 10/10/22 service: Yes Current occupational status: retired Cognitive needs: No Hearing needs: No Vision needs: No Physical Exam Vital Signs: Last Vital Signs Temp 97.8 F 10/31/24 11:16 Pulse 86 10/31/24 11:16 BP 120/60 10/31/24 11:16 Pulse Ox 97 10/31/24 11:16 BMI result Body Mass Index 36.0 Results Reviewed Results Reviewed: Findings: There is widening of the acromioclavicular distance to 9 mm. No discrete fracture. No fracture of the scapula. IMPRESSION: No fracture of the scapula. Findings: Alignment of the glenohumeral joint is anatomic. AC joint is widened to 9 mm. No fractures identified. Mild glenohumeral joint DJD. IMPRESSION: Age-indeterminate left grade 2 shoulder separation Exam: AP and AP lordotic views of the left clavicle Comparison: CR - XR SCAPULA LT - 10/31/24 12:06 EDT CR - XR SHOULDER LT MIN 2V - 10/31/24 12:05 EDT Findings: Left acromioclavicular joint is widened to 9 mm. Subcortical cystic changes seen of the distal aspect of the clavicle. No fracture. IMPRESSION: Age-indeterminate left grade 2 shoulder separation. Assessment & Plan Assessment & Plan (1) Shoulder separation: Comment: Grade 2 [facility] office 365 consultant [place] Text Recommend: Sling for comfort, shoulder pendulums to avoid stiffness, avoid overhead and refer to ortho Code(s): S43.006A - Unspecified dislocation of unspecified shoulder joint, initial encounter (2) Limited mobility: Code(s): Z74.09 - Other reduced mobility (3) Left shoulder pain: Code(s): M25.512 - Pain in left shoulder Qualifiers: Chronicity: acute Qualified Code(s): M25.512 - Pain in left shoulder (4) Pain of left scapula: Code(s): M89.8X1 - Other specified disorders of bone, shoulder (5) Shoulder pain: Code(s): M25.519 - Pain in unspecified shoulder Qualifiers: Chronicity: acute Laterality: left Qualified Code(s): M25.512 - Pain in left shoulder Plan . Orders: Orders XR shoulder LT min 2V Today M25.512 - Pain in left shoulder, M89.8X1 - Other specified disorders of bone, shoulder, Z74.09 - Other reduced mobility XR clavicle LT Today M25.512 - Pain in left shoulder, M89.8X1 - Other specified disorders of bone, shoulder, Z74.09 - Other reduced mobility XR scapula LT Today M25.512 - Pain in left shoulder, M89.8X1 - Other specified disorders of bone, shoulder, Z74.09 - Other reduced mobility Referrals Orthopedics Referral M25.519 - Pain in unspecified shoulder, S43.006A - Unspecified dislocation of unspecified shoulder joint, initial encounter Coding Level of Care Code Est Pt Level 5 (12363) Diagnoses Shoulder separation S43.006A Limited mobility Z74.09 Acute pain of left shoulder M25.512 Chronicity: acute Pain of left scapula M89.8X1 Acute pain of left shoulder M25.512 Chronicity: acute Laterality: left
== END 2024-10-31 13:19 | disposition home or self-care (01) ==
PROVIDERS: PCP Family Medicine; Visit Provider Nurse Practitioner Family
DX: S43.006A Unspecified dislocation of unspecified shoulder joint, initial encounter (principal); Z74.09 Other reduced mobility; M25.512 Pain in left shoulder; M89.8X1 Other specified disorders of bone, shoulder

== ENCOUNTER 2024-10-31 11:11 | Outpatient (REF) | payer MEDICARE, OTHER, SELFPAY ==
--- NOTE | ~2024-10-31 | XR_ITS ---
CLINICAL HISTORY: Z74.09 - Other reduced mobility --- Additional Notes or Special Instructions: hx of rotator cuff repair, throwing something and felt l arm drop now Exam: AP and scapular Y-views of the left scapula. Comparison: CR - XR SHOULDER LT MIN 2V - 10/31/24 12:05 EDT CR - XR CLAVICLE LT - 10/31/24 12:02 EDT Findings: There is widening of the acromioclavicular distance to 9 mm. No discrete fracture. No fracture of the scapula. IMPRESSION: No fracture of the scapula. This document has been electronically signed by: Vasquez Mccoy MD on 10/31/2024 12:44:49
--- NOTE | ~2024-10-31 | XR_ITS ---
CLINICAL HISTORY: Z74.09 - Other reduced mobility --- Additional Notes or Special Instructions: hx of rotator cuff repair, throwing something and felt l arm drop now Exam: AP and AP lordotic views of the left clavicle Comparison: CR - XR SCAPULA LT - 10/31/24 12:06 EDT CR - XR SHOULDER LT MIN 2V - 10/31/24 12:05 EDT Findings: Left acromioclavicular joint is widened to 9 mm. Subcortical cystic changes seen of the distal aspect of the clavicle. No fracture. IMPRESSION: Age-indeterminate left grade 2 shoulder separation. This document has been electronically signed by: Vasquez Mccoy MD on 10/31/2024 12:42:57
--- NOTE | ~2024-10-31 | XR_ITS ---
CLINICAL HISTORY: Z74.09 - Other reduced mobility --- Additional Notes or Special Instructions: hx of rotator cuff repair, throwing something and felt l arm drop now cannot raise the arm at allconcern f or dislocationdoes have pain w palp over Exam: AP, Grashey, and scapular Y-views of the left shoulder. Comparison: CR - XR SCAPULA LT - 10/31/24 12:06 EDT CR - XR CLAVICLE LT - 10/31/24 12:02 EDT Findings: Alignment of the glenohumeral joint is anatomic. AC joint is widened to 9 mm. No fractures identified. Mild glenohumeral joint DJD. IMPRESSION: Age-indeterminate left grade 2 shoulder separation. This document has been electronically signed by: Vasquez Mccoy MD on 10/31/2024 12:42:10
== END 2024-10-31 11:12 | disposition home or self-care (01) ==
LOC: HO.HMGCX 11:11
PROVIDERS: PCP Family Medicine; Visit Provider Nurse Practitioner Family
DX: S43.122A Dislocation of left acromioclavicular joint, 100%-200% displacement, initial encounter (principal); Z74.09 Other reduced mobility; M89.8X1 Other specified disorders of bone, shoulder; X58.XXXA Exposure to other specified factors, initial encounter; Y93.9 Activity, unspecified; Y92.9 Unspecified place or not applicable; Y99.9 Unspecified external cause status
CPT/HCPCS: 73000; 73010; 73030; 99212

== ENCOUNTER → 2024-10-31 11:51 | Outpatient (BNV) | payer MEDICARE, OTHER, SELFPAY | PROVIDERS: PCP Family Medicine; Visit Provider Radiology Diagnostic Radiology | DX: Z74.09 Other reduced mobility (principal) | CPT/HCPCS: 73000; 73010; 73030 ==

== ENCOUNTER 2024-11-03 13:30 | Outpatient (AMB) | payer MEDICARE, OTHER, SELFPAY ==
--- NOTE | 2024-11-03 13:34 | MHC.OFFVIS ---
Intake Visit Reasons: OV-Left Shoulder Pain Intake Note: Kiran is a right hand dominant male who presents today for a follow up of his left shoulder pain. Patient reports that his pain has been getting worse. He has had a rotator cuff repair in [place] back in 2004. He notices that his ROM is limited. Allergies watermelon [WATERMELON] Allergy (Severe, Verified 11/03/24 13:53) ANAPHYLAXIS Iodinated Contrast Media [IV CONTRAST] Allergy (Intermediate, Verified 11/03/24 13:53) LIGHT HEADED AND SHORTNESS OF BREATH HPI HPI OV-Left Shoulder Pain: Details: Mr. Dela Cruz is a 69-year-old right-hand dominant male who presents to the office today after trying to throw something with the left arm. He felt immediate pop in his arm dropped. Ever since then he has been unable to lift the left upper extremity due to pain. He reports he has a history of a failed rotator cuff repair done at [facility] and [place]. Ever since this surgery he has been unable to lift his arm up actively. He reports while taking showers he has 2 walk his hand up the side of the shower in order to wash his under arm. He presented to the walk-in clinic on 10/31/2024 where x-rays were obtained and he was diagnosed with an AC joint separation. He was given a sling for comfort with education on coming out to perform pendulum exercises to avoid shoulder stiffness. [facility] Medical History Nocturnal hypoxia CHF (congestive heart failure) Chronic lung disease COPD with acute exacerbation Chronic lung disease Chronic lung disease Tubular adenoma of colon (~2005) COPD (chronic obstructive pulmonary disease) Pulmonary nodules RAYMOND on CPAP Chronic rhinitis Asthma-COPD overlap syndrome PAF (paroxysmal atrial fibrillation) (~2017) Echocardiogram abnormal Encounter for screening for lung cancer Edema leg Venous insufficiency of both lower extremities AC (acromioclavicular) joint arthritis BPH (benign prostatic hyperplasia) Seasonal allergies Hyperlipidemia Surgical History History of appendectomy History of esophagogastroduodenoscopy (EGD) History of total left hip replacement (~2019) History of repair of right rotator cuff (~2017) History of nasal septoplasty (~2008) History of colonoscopy History of cataract (~2009) Family History Father No problems noted. Mother CAD (coronary artery disease) CHF (congestive heart failure) HTN (hypertension) Brother No problems noted. Brother No problems noted. Sister No problems noted. Sister No problems noted. Sister Mental health disorder Son No problems noted. Son No problems noted. Social History Household Members: Spouse, Family and Children Housing: House Do you presently have visiting nurse or other home services: No Alcohol intake: current Alcohol intake frequency: holidays/special occasions only Patient Tobacco Use Status: Former Tobacco user Tobacco use type: Cigarette Years Smoked: 40 years e-Cigarette/Vaping Use: Former Use Second Hand Smoke Exposure: No Advance Directives Date on File: 10/10/22 service: Yes Current occupational status: retired Cognitive needs: No Hearing needs: No Vision needs: No Review of Systems Const All systems reviewed & are unremarkable except as noted in HPI and below Physical Exam Const General: cooperative, healthy appearing and no acute distress Resp Effort & Inspection: normal respiratory effort and able to speak in complete sentences Extrem Other: Left shoulder unable to perform active or passive range of motion due to pain. Able to flex and extend at the elbow and wrist. Neurovascularly intact. Assessment & Plan Assessment & Plan (1) Rotator cuff insufficiency of left shoulder: Code(s): M25.312 - Other instability, left shoulder Category: Medical Plan Mr. Dela Cruz is a 69-year-old right-hand dominant male who presents to the office today after trying to throw something with the left arm. He felt immediate pop in his arm dropped. Ever since then he has been unable to lift the left upper extremity due to pain. He reports he has a history of a failed rotator cuff repair done at [facility] and [place]. Ever since this surgery he has been unable to lift his arm up actively. He reports while taking showers he has 2 walk his hand up the side of the shower in order to wash his under arm. He presented to the walk-in clinic on 10/31/2024 where x-rays were obtained and he was diagnosed with an AC joint separation. He was given a sling for comfort with education on coming out to perform pendulum exercises to avoid shoulder stiffness. While in the office today we discussed conservative treatment options including physical therapy and cortisone injection. After reviewing the x-rays that were obtained and compared to previous x-rays from 2022. I do not appreciate an AC joint separation. However, I do appreciate a subacromial decompression with distal clavicle excision from his prior surgery. The patient is on interested in injection as he has a phobia of needles. He is willing to attend physical therapy so an order has been placed at this time. We discussed the role of NSAIDs but due to his past medical history of AFib on Eliquis he is unable to take them. He will follow up in 6 weeks, sooner if needed. X-rays obtained on 10/31/2024 of the left shoulder show no acute fracture or dislocation. There is evidence of a distal clavicle excision and subacromial decompression from prior surgery. No evidence of AC joint separation. Coding Level of Care Code New Pt Level 3 (52095) Diagnoses Rotator cuff insufficiency of left shoulder M25.312
--- OUTSIDE RECORDS SUMMARY | 2024-11-03 15:25 | XMS_ITS | Continuity of Care Document ---
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 BOTTLE Active [id number] 4 2023 90 Pharmac y Data Transac tion Service Facilit y ARFORMOTERO L TARTRATE (arformoter ol tartrate), 15MCG/2ML, VIAL-NEB, INHALATION, LIFESTAR PHARMA, 2 ml VIAL Active [id number] 2023 360 Pharmac y Data Transac tion Service Facilit y Benzonatate ([employer]) 100 CAPSULE in 1 BOTTLE Active [id number] 09/07/19 2 4 2023 30 Pharmac y Data Transac tion Service Facilit y BUMETANIDE (BUMETANIDE ), 0.5MG, TABLET, ORAL, [facility], 100 ea. BOTTLE Active [id number] 4 2023 30 Pharmac y Data Transac tion Service Facilit y BUMETANIDE (BUMETANIDE ), 0.5MG, TABLET, ORAL, [facility], 100 ea. BOTTLE Active [id number] 4 2023 30 Pharmac y Data Transac tion Service Facilit y Cefpodoxime Proxetil (Cefpodoxim e Proxetil), 200mg, Tablet, Oral, Sandoz, 20 Ea. Bottle Active [id number] 4 2023 20 Pharmac y Data Transac tion Service Facilit y DOXYCYCLINE HYCLATE (DOXYCYCLIN E HYCLATE), 100 MG, CAPSULE, ORAL, WE[place],I NC., 500 ea. BOTTLE Active [id number] 4 2023 20 Pharmac y Data Transac tion Service Facilit y DOXYCYCLINE MONOHYDRATE (DOXYCYCLIN E MONOHYDRATE ), 100 MG, CAPSULE, ORAL, LUPIN PHARMACEU, 50 ea. BOTTLE Active [id number] 4 2023 6 Pharmac y Data Transac tion Service Facilit y FUROSEMIDE (furosemide ), 20 MG, TABLET, ORAL, AVKARE, 1000 ea. BOTTLE Cancele d [id number] : 2023 0 Pharmac y Data Transac tion Service Facilit y FUROSEMIDE (furosemide ), 20 MG, TABLET, ORAL, AVKARE, 1000 ea. BOTTLE Active [id number] 4 2023 45 Pharmac y Data Transac tion Service Facilit y LEVALBUTERO L HCL (levalbuter ol HCl), 1.25MG/3ML, VIAL-NEB, INHALATION, AMNEAL PHARMACE, 3 ml VIAL Cancele d [id number] : 2023 0 Pharmac y Data Transac tion Service Facilit y LEVALBUTERO L HCL (levalbuter ol HCl), 1.25MG/3ML, VIAL-NEB, INHALATION, [facility], 3 ml VIAL Cancele d [id number] : 2023 0 Pharmac y Data Transac tion Service Facilit y PREDNISONE (prednisone ), 10 MG, TABLET, ORAL, AMNEAL PHARMACE, 100 ea. BOTTLE Active [id number] 4 2023 60 Pharmac y Data Transac tion Service Facilit y PREDNISONE (prednisone ), 10 MG, TABLET, ORAL, NOVITIUM/AN I PH, 100 ea. BOTTLE Active [id number] 4 2023 63 Pharmac y Data Transac tion Service Facilit y PREDNISONE (prednisone ), 10 MG, TABLET, ORAL, STRIDES PHARMA, 500 ea. BOTTLE Active [id number] 4 2023 120 Pharmac y Data Transac tion Service Facilit y PREDNISONE (PREDNISONE ), 20MG, TABLET, ORAL, CADISTA PHARMAC, 500 ea. BOTTLE Active [id number] 4 2023 8 Pharmac y Data Transac tion Service Facilit y TAMSULOSIN HCL (TAMSULOSIN HCL), 0.4 MG, CAP.SR 24H, ORAL, ZYDUS PHARMACEU, 1000 ea. BOTTLE Active [id number] 4 2023 180 Pharmac y Data Transac tion Service Facilit y Social History Combined list of available smoking, tobacco, and other social history from Department of Defense and Veterans Affairs facilities. Social History Type Response Date Comment [facility] e This section is an empty social history section. [employer]
== END 2024-11-03 15:31 | disposition home or self-care (01) ==
LOC: HO.HOS 13:30
PROVIDERS: PCP Family Medicine; Visit Provider Physician Assistant
DX: M25.312 Other instability, left shoulder (principal)
CPT/HCPCS: 99213

== ENCOUNTER → 2024-11-03 13:30 | Outpatient (BNVA) | payer MEDICARE, OTHER, SELFPAY | PROVIDERS: PCP Family Medicine; Visit Provider Physician Assistant | DX: M25.312 Other instability, left shoulder (principal) | CPT/HCPCS: 99212 ==

== ENCOUNTER 2024-11-11 10:45 | Outpatient (AMB) | payer MEDICARE, OTHER, SELFPAY ==
--- NOTE | 2024-11-11 11:02 | MHC.PC.OV ---
Vital Signs 11/11/24 11:06 Height 5 ft 9 in Weight 241 lb 6 oz BMI 35.6 BP 110/60 Blood Pressure Location Lt brachial Position Sitting Respiration 14 Pulse 81 Pulse Source Pulse Oximeter Temp 98.2 F Temp Source Oral Pulse Oximetry (%) 95 Oxygen Delivery Method Room Air Intake Visit Reasons: f/u HTN, chronic conditions Intake Note: Follow up on htn and chronic conditions Power Shovel Engineer Required: No Allergies watermelon (WATERMELON) Allergy (Severe, Verified 11/11/24 11:05) ANAPHYLAXIS Iodinated Contrast Media (IV CONTRAST) Allergy (Intermediate, Verified 11/11/24 11:05) LIGHT HEADED AND SHORTNESS OF BREATH Medication List - Last Reconciled 11/11/24 by Guilherme Mcallister MD albuterol sulfate 90 mcg/actuation 2 puffs inhalation QID PRN apixaban (Eliquis) 5 mg PO BID arformoterol (Brovana) 15 mcg (2 mL) inhalation BID atorvastatin 80 mg PO DAILY blood pressure monitor Automatic, Digital. Dx: I10. Daily As directed, 999 days/lifetime budesonide 0.5 mg (2 mL) inhalation BID bupropion HCl 150 mg (2 x 75 mg) PO BID 90 days CPAP (CPAP Machine/Device) As directed dronedarone (Multaq) 400 mg PO BID furosemide 40 mg PO Q OTHER DAY levalbuterol HCl 1.25 mg (3 mL) inhalation BID 90 days losartan 37.5 mg (1.5 x 25 mg) PO DAILY 90 days metolazone 2.5 mg PO .1x week metoprolol succinate ER 100 mg PO DAILY montelukast 10 mg PO DAILY nebulizers As directed Oxygen Home Use As directed prednisone 10 mg (2 x 5 mg) PO DAILY 90 days roflumilast 500 mcg PO DAILY tamsulosin (Flomax) 0.4 mg PO BID 90 days tezepelumab-ekko (Tezspire) 210 mg subcut Q4W tiotropium bromide 2.5 mcg/actuation (Spiriva Respimat) 2 puffs inhalation DAILY 30 days Tobacco use date assessed: 09/26/23 Dental Screening Dental Screen Date: 09/26/23 HPI f/u HTN, chronic conditions HPI Details 69 y/o male presents to f/u hypertension, chronic conditions. BP today 110/60, 81p. He is on losartan 37.5mg daily. Followed by orthopedics for his rotator cuff insufficiency. Pt notes no one has contacted him yet for physical therapy. Followed by pulmonology for his asthma-COPD overlap syndrome. He continues prednisone and his pourer off is hoping to wean this down. Has complaints of a cellulitis, R leg. HPI Comments History of Present Illness Details Documentation assistance for Guilherme Mcallister MD, was provided by Felix Oconnor,? Activities Director on 11/11/2024 at 11:37 AM EST. I, Dr. Mcallister, have read, observed, and verified documentation. ?? [facility] Medical History (Reviewed 10/19/24 @ 11:05 by Rosy Burciaga, [facility]) Nocturnal hypoxia CHF (congestive heart failure) Chronic lung disease COPD with acute exacerbation Chronic lung disease Chronic lung disease Tubular adenoma of colon (~2005) COPD (chronic obstructive pulmonary disease) Pulmonary nodules RAYMOND on CPAP Chronic rhinitis Asthma-COPD overlap syndrome PAF (paroxysmal atrial fibrillation) (~2017) Echocardiogram abnormal Encounter for screening for lung cancer Edema leg Venous insufficiency of both lower extremities AC (acromioclavicular) joint arthritis BPH (benign prostatic hyperplasia) Seasonal allergies Hyperlipidemia Surgical History (Reviewed 10/19/24 @ 11:05 by Rosy Burciaga, [facility]) History of appendectomy History of esophagogastroduodenoscopy (EGD) History of total left hip replacement (~2019) History of repair of right rotator cuff (~2017) History of nasal septoplasty (~2008) History of colonoscopy History of cataract (~2009) Family History (Reviewed 10/19/24 @ 11:05 by Rosy Burciaga [facility]) Father No problems noted. Mother CAD (coronary artery disease) CHF (congestive heart failure) HTN (hypertension) Brother No problems noted. Brother No problems noted. Sister No problems noted. Sister No problems noted. Sister Mental health disorder Son No problems noted. Son No problems noted. Social History Household Members: Spouse, Family and Children Housing: House Do you presently have visiting nurse or other home services: No Alcohol intake: current Alcohol intake frequency: holidays/special occasions only Patient Tobacco Use Status: Former Tobacco user Tobacco use type: Cigarette Years Smoked: 40 years e-Cigarette/Vaping Use: Former Use Second Hand Smoke Exposure: No Advance Directives Date on File: 10/10/22 service: Yes Current occupational status: retired Cognitive needs: No Hearing needs: No Vision needs: No Questionnaire PHQ-9 Over the last 2 weeks, how often have you been bothered by any of the following problems? 3. Trouble falling or staying asleep, or sleeping too much: not at all 4. Feeling tired or having little energy: not at all 5. Poor appetite or overeating: not at all 6. Feeling bad about yourself - or that you are a failure or have let yourself or your family down: not at all 7. Trouble concentrating on things, such as reading the newspaper or watching television: not at all 8. Moving or speaking so slowly that other people could have noticed. Or the opposite - being so fidgety or restless that you have been moving around a lot more than usual: not at all 9. Thoughts that you would be better off or of hurting yourself in some way: not at all Source: Developed by Drs. Kwame William, Cayla Candelario, Damian Lee and colleagues, with an educational maria g from [employer]. Thrive Questionnaire Date Thrive assessed: 08/05/24 Do you have trouble getting transportation to medical appointments?: No Do you have trouble paying your heating and electricity bill?: No Do you have trouble taking care of your child, family member or friend?: I choose not to answer this question Do you have trouble with day-to-day activities such as bathing, preparing meals, shopping, managing finances, etc.?: I choose not to answer this question Are you currently unemployed and looking for a job?: I choose not to answer this question Are you interested in more education?: I choose not to answer this question Currently or been in a relationship where the following occur: I choose not to answer THRIVE Score: 0 AUDIT C Alcohol Use Questionnaire (AUDIT-C) 1. How often do you have a drink containing alcohol?: Monthly or less 2. How many drinks containing alcohol do you have on a typical day when you are drinking?: 3 or 4 3. How often do you have six or more drinks on one occasion?: Less than monthly Total Score: 3 STEVEN-7 AMB Questionnaire STEVEN-7 Date STEVEN - 7 assessed: 06/27/23 Feeling nervous, anxious, or on edge: 0 = Not at all Not being able to stop or control worryin = Not at all Worrying too much about different things: 0 = Not at all Trouble relaxin = Not at all Being so restless that it is hard to sit still: 0 = Not at all Becoming easily annoyed or irritable: 0 = Not at all Feeling afraid as if something awful might happen: 0 = Not at all Total STEVEN-7 score (0-4 normal; 5-9 mild; 10-14 moderate; 15-21 severe): 0 Source: Developed by Drs. Kwame William, Cyala Candelario, Damian Lee and colleagues, with an educational maria g from [employer]. Review of Systems Const Denies chills, Denies fatigue, Denies fever(s), Denies headache(s) and Denies weakness ENT Denies dizziness and Denies headache(s) Card Denies dyspnea Resp Denies cough, Denies dyspnea, Denies wheezing and Denies other (shortness of breath) Musc Denies numbness and Denies tingling Neuro Denies dizziness, Denies headache(s), Denies numbness, Denies tingling and Denies weakness Psych Denies anxiety and Denies depression Endo Denies fatigue Aller/Immun Denies wheezing Physical exam (Primary Care) Vital Signs: Last Vital Signs Temp 98.2 F 11/11/24 11:06 Pulse 81 11/11/24 11:06 Resp 14 11/11/24 11:06 BP 110/60 11/11/24 11:06 Pulse Ox 95 11/11/24 11:06 Oxygen Delivery Method Room Air 11/11/24 11:06 BMI result Body Mass Index 35.6 Tobacco/Smoking Status: Tobacco use Status Tobacco use date assessed 09/26/23 11/11/24 11:03 Patient Tobacco Use Status Former Tobacco user 11/11/24 11:03 Tobacco use type Cigarette 11/11/24 11:03 e-Cigarette/Vaping Use Former Use 11/11/24 11:03 Thrive Assessment: Date of Thrive Assessment Date Thrive assessed 08/05/24 11/11/24 11:03 Currently or been in a relationship where the following occur: I choose not to answer Const General: well developed; No acute distress Nutritional Appearance: well nourished Orientation/consciousness: patient oriented x3 HENMT Head: Yes normocephalic and Yes atraumatic Eyes General: appearance normal, both eyes and all related structures Pupils: Equal, round and reactive pupils present EOM: EOMs intact bilaterally Resp Effort & Inspection: normal respiratory effort Auscultation: clear to auscultation bilaterally Cardio Rate: regular rate Rhythm: regular rhythm Heart sounds: S1 normal heart sound present, S2 normal heart sound present, no gallops, no murmurs and no rubs Skin Other: 3 cm in diameter patchy cellulitis on anterolateral R quick, around a wound with a scab Neuro General: patient oriented x3 and gait normal Cranial nerves: Yes Equal, round and reactive pupils present Psych Affect: normal affect Coding Level of Care Code Est Pt Level 4 (04063) Diagnoses Primary hypertension I10 Hypertension type: primary hypertension Chronic kidney disease, unspecified CKD stage N18.9 Chronic kidney disease stage: unspecified stage Chronic diastolic congestive heart failure I50.32 Heart failure chronicity: chronic Heart failure type: diastolic Asthma-COPD overlap syndrome J44.9 Rotator cuff insufficiency of left shoulder M25.312 Cellulitis of left lower extremity L03.116 Laterality: left Site of cellulitis: extremity Site of cellulitis of extremity: lower extremity Assessment & Plan Assessment & Plan (1) Hypertension: Code(s): I10 - Essential (primary) hypertension Category: Medical Qualifiers: Hypertension type: primary hypertension Qualified Code(s): I10 - Essential (primary) hypertension Plan: Blood?pressure?is?controlled.??Goal?is?less?than?130/80 Continue?current?medications (2) CKD (chronic kidney disease): Code(s): N18.9 - Chronic kidney disease, unspecified Category: Medical Qualifiers: Chronic kidney disease stage: unspecified stage Qualified Code(s): N18.9 - Chronic kidney disease, unspecified Plan: Renal?function?stable Due?to?recheck?this Labs?ordered.??Will?call?patient?if?action?is?required (3) CHF (congestive heart failure): Code(s): I50.9 - Heart failure, unspecified Category: Medical Qualifiers: Heart failure chronicity: chronic Heart failure type: diastolic Qualified Code(s): I50.32 - Chronic diastolic (congestive) heart failure Plan: Lungs?clear?and?patient?is?breathing?easily Continue?furosemide (4) Asthma-COPD overlap syndrome: Code(s): J44.9 - Chronic obstructive pulmonary disease, unspecified Category: Medical Plan: Stable.??Patient?is?breathing?well?and?continues?prednisone His?pourer off?is?hoping?to?wean?this?down?and?trying?new?medications. Follow-up?with?pulmonology?as?recommended (5) Rotator cuff insufficiency of left shoulder: Code(s): M25.312 - Other instability, left shoulder Category: Medical Plan: Patient?is?waiting?to?be?scheduled?with?PT Will?ask?the?office?to?check?status (6) Cellulitis: Code(s): L03.90 - Cellulitis, unspecified Category: Medical Qualifiers: Laterality: left Site of cellulitis: extremity Site of cellulitis of extremity: lower extremity Qualified Code(s): L03.116 - Cellulitis of left lower limb Plan: Mild?cellulitis?at?anterolateral?aspect?of?right?quick Start?cephalexin Elevate?leg He?will?call?to?let?me?know?if?worsening?or?not?improving Orders: Orders Basic Metabolic Panel Today N18.9 - Chronic kidney disease, unspecified, Z00.00 - Encounter for general adult medical examination without abnormal findings Medications: New cephalexin 500 mg PO Q12H 10 days 20 tabs 0RF cephalexin 500 mg PO Q12H 20 tabs 0RF 10 days
[2024-11-11 11:06] VITALS: BP 110/60; PULSE 81; RESP 14; TEMP 36.8; O2SAT 95; BMI 35.6
--- OUTSIDE RECORDS SUMMARY | 2024-11-11 12:41 | XMS_ITS | Continuity of Care Document ---
Author Name [facility] Organization [facility] Care Team Providers Care Operating Room Specialist Name Role Phone [facility] Unavailable Unavailable Medications Combined list of outpatient [...] INHALATION, LUPIN PHARMACEU, 8.5 g CANISTER Active [id number] 4 2023 8.5 Pharmac y Data Transac tion Service Facilit y AMLODIPINE BESYLATE (AMLODIPINE BESYLATE), 5 MG, TABLET, ORAL, [facility], 1000 ea. BOTTLE Active [id number] 4 2023 90 Pharmac y Data Transac tion Service Facilit y ARFORMOTERO L TARTRATE (arformoter ol tartrate), 15MCG/2ML, VIAL-NEB, INHALATION, LIFESTAR PHARMA, 2 ml VIAL Active [id number] 4 2023 360 Pharmac y Data Transac tion Service Facilit y Benzonatate ([employer]) 100 CAPSULE in 1 BOTTLE Active [id number] 09/07/19 2 4 2023 30 Pharmac y Data Transac tion Service Facilit y BUMETANIDE (BUMETANIDE ), 0.5MG, TABLET, ORAL, [facility], 100 ea. BOTTLE Active [id number] 4 2023 30 Pharmac y Data Transac tion Service Facilit y BUMETANIDE (BUMETANIDE ), 0.5MG, TABLET, ORAL, [facility], 100 ea. BOTTLE Active [id number] 4 2023 30 Pharmac y Data Transac tion Service Facilit y Cefpodoxime Proxetil (Cefpodoxim e Proxetil), 200mg, Tablet, Oral, Sandoz, 20 Ea. Bottle Active [id number] 4 2023 20 Pharmac y Data Transac tion Service Facilit y DOXYCYCLINE HYCLATE (DOXYCYCLIN E HYCLATE), 100 MG, CAPSULE, ORAL, [place],I NC., 500 ea. BOTTLE Active [id number] 2023 20 Pharmac y Data Transac tion Service Facilit y DOXYCYCLINE MONOHYDRATE (DOXYCYCLIN E MONOHYDRATE ), 100 MG, CAPSULE, ORAL, LUPIN PHARMACEU, 50 ea. BOTTLE Active [id number] 4 2023 6 Pharmac y Data Transac tion Service Facilit y FUROSEMIDE (furosemide ), 20 MG, TABLET, ORAL, AVKARE, 1000 ea. BOTTLE Cancele d [id number] : 2023 0 Pharmac y Data Transac tion Service Facilit y FUROSEMIDE (furosemide ), 20 MG, TABLET, ORAL, AVKARE, 1000 ea. BOTTLE Active [id number] 4 2023 45 Pharmac y Data Transac tion Service Facilit y LEVALBUTERO L HCL (levalbuter ol HCl), 1.25MG/3ML, VIAL-NEB, INHALATION, AMNEAL PHARMACE, 3 ml VIAL Cancele d [id number] : 2023 0 Pharmac y Data Transac tion Service Facilit y LEVALBUTERO L HCL (levalbuter ol HCl), 1.25MG/3ML, VIAL-NEB, INHALATION, TEVA [place], 3 ml VIAL Cancele d [id number] : 2023 0 Pharmac y Data Transac tion Service Facilit y PREDNISONE (prednisone ), 10 MG, TABLET, ORAL, NOVITIUM/AN I PH, 100 ea. BOTTLE Active [id number] 4 2023 63 Pharmac y Data Transac tion Service Facilit y PREDNISONE (prednisone ), 10 MG, TABLET, ORAL, STRIDES PHARMA, 500 ea. BOTTLE Active [id number] 4 2023 120 Pharmac y Data Transac tion Service Facilit y PREDNISONE (PREDNISONE ), 20MG, TABLET, ORAL, CADISTA PHARMAC, 500 ea. BOTTLE Active [id number] 4 2023 8 Pharmac y Data Transac tion Service Facilit y TAMSULOSIN HCL (TAMSULOSIN HCL), 0.4 MG, CAP.SR 24H, ORAL, ZYDUS PHARMACEU, 1000 ea. BOTTLE Active [id number] 2023 180 Pharmac y Data Transac tion Service Facilit y Social History Combined list of available smoking, tobacco, and other social history from Department of Defense and Veterans Affairs facilities. Social History Type Response Date Comment Sour e This section is an empty social history section. [employer]
== END 2024-11-11 13:52 | disposition home or self-care (01) ==
LOC: HO.HMCFM 10:46
PROVIDERS: PCP Family Medicine; Visit Provider Family Medicine
DX: I12.9 Hypertensive chronic kidney disease with stage 1 through stage 4 chronic kidney disease, or unspecified chronic kidney disease (principal); N18.9 Chronic kidney disease, unspecified; I50.32 Chronic diastolic (congestive) heart failure; J44.9 Chronic obstructive pulmonary disease, unspecified; M25.312 Other instability, left shoulder; L03.116 Cellulitis of left lower limb

== ENCOUNTER → 2024-11-11 10:45 | Outpatient (BNVA) | payer MEDICARE, OTHER, SELFPAY | PROVIDERS: PCP Family Medicine; Visit Provider Family Medicine | DX: I13.0 Hypertensive heart and chronic kidney disease with heart failure and stage 1 through stage 4 chronic kidney disease, or unspecified chronic kidney disease (principal); N18.9 Chronic kidney disease, unspecified; I50.32 Chronic diastolic (congestive) heart failure; J44.9 Chronic obstructive pulmonary disease, unspecified; M25.312 Other instability, left shoulder; L03.116 Cellulitis of left lower limb | CPT/HCPCS: 99212 ==

== ENCOUNTER 2025-01-05 10:41 | Outpatient (AMB) | payer MEDICARE, OTHER, SELFPAY ==
[2025-01-05 10:44] VITALS: BP 122/54; PULSE 108; O2SAT 93; BMI 34.4
--- NOTE | 2025-01-05 10:44 | HO.NEPHOV_ITS ---
Vital Signs 01/05/25 10:44 Height 5 ft 9 in Weight 233 lb BMI 34.4 BP 122/54 L Blood Pressure Location Lt brachial Position Sitting Pulse 108 H Pulse Source Pulse Oximeter Pulse Oximetry (%) 93 Oxygen Delivery Method Room Air Intake Visit Reasons: 4 MO FU/ LVM Punch Press Feeder Required: No Accompanied by: Self / Same As Patient Allergies watermelon (WATERMELON) Allergy (Severe, Verified 01/05/25 10:46) ANAPHYLAXIS Iodinated Contrast Media (IV CONTRAST) Allergy (Intermediate, Verified 01/05/25 10:46) LIGHT HEADED AND SHORTNESS OF BREATH Medication List - Last Reconciled 01/05/25 by Jd Yates MD albuterol sulfate 90 mcg/actuation 2 puffs inhalation QID PRN apixaban (Eliquis) 5 mg PO BID arformoterol (Brovana) 15 mcg (2 mL) inhalation BID atorvastatin 80 mg PO DAILY blood pressure monitor Automatic, Digital. Dx: I10. Daily As directed, 999 days/lifetime budesonide 0.5 mg (2 mL) inhalation BID bupropion HCl 150 mg (2 x 75 mg) PO BID 90 days CPAP (CPAP Machine/Device) As directed dronedarone (Multaq) 400 mg PO BID furosemide 40 mg PO Q OTHER DAY levalbuterol HCl 1.25 mg (3 mL) inhalation BID 90 days losartan 37.5 mg (1.5 x 25 mg) PO DAILY 90 days metolazone 2.5 mg PO .1x week metoprolol succinate ER 100 mg PO DAILY montelukast 10 mg PO DAILY nebulizers As directed Oxygen Home Use As directed prednisone 10 mg (2 x 5 mg) PO DAILY 90 days roflumilast 500 mcg PO DAILY tamsulosin (Flomax) 0.4 mg PO BID 90 days tezepelumab-ekko (Tezspire) 210 mg subcut Q4W tiotropium bromide 2.5 mcg/actuation (Spiriva Respimat) 2 puffs inhalation DAILY 30 days HPI Comments Details: . Kiran is a pleasant 68-year-old man with a history of hypertension COPD with peripheral vascular disease. He has had significantly leg edema. He was on amlodipine which has been discontinued recently. He is on Lasix 20 mg a day. He has underlying CKD with a serum creatinine of around 1.2-1.3 at baseline. Recently there has been a bump in serum creatinine up to 1.6. He was on lisinopril 20 mg a day which has been discontinued few months ago. The diuretics are being adjusted based on the creatinine but he continues to have leg edema and hence this referral. He is history of COPD and obstructive sleep apnea. Was recently hospitalized for exacerbation of COPD. He is currently on prednisone. He had an echocardiogram which did not reveal any significant right sided heart failure. He has a significant history of smoking for almost 40 years 1-2 packs per day he quit smoking about 15 years ago. Review of system was positive for significantly leg edema. He had increased urinary frequency which has resolved. No nausea vomiting no chest pain no palpitations no fever no rash 10/28/2023. He admits taking Bumex for for a week. He took it for few days. Repeat serum creatinine was 1.62. No increase in BUN. He continues her leg edema. Urine did not reveal any significant proteinuria 11/26/2023. He was on Bumex 0.5 mg once a day. However he felt that the leg edema was worsening. He went to the ER and he had more swelling. Bumex was increased to 1 mg a day. However is still believes that the edema gets worse with a high dose of Bumex. He has significant redness in his legs which is pain Doppler did not reveal any DVTs 12/12/2023. After course of antibiotics the erythema has improved. He is still has edema. He is tolerating Lasix well. He is on a course of prednisone prescribed by chimney sweeper. 01/14/24; [place] [facility] [place]Treated with antibiotics; Legs with edema ;Erythema improved with antibiotics 02/03/2024 ;Continues have leg edema. He was recently in urgent care. No changes were made to diuretics. 02/18/2024. After addition of metolazone he has lost about 12 lb. He did go to the ER with low blood pressure. No changes were made at the time. 03/31/24 ; Still with edema ;weight is up 06/15/24; Doing better ;Edema under control ;Cr at 1.6 ;Recently had flu ;Now on Lasix 40 mg QOD 09/10/24: Recently went on a cruise ; Gained 6 lbs. No new issues 01/01/25 Redness in his legs. But edema has improved. . Next continues her shortness of breath and waiting to see Dr. Head. He has lost about 10 lb since last visit. [facility] Medical History Nocturnal hypoxia CHF (congestive heart failure) Chronic lung disease COPD with acute exacerbation Chronic lung disease Chronic lung disease Tubular adenoma of colon (~2005) COPD (chronic obstructive pulmonary disease) Pulmonary nodules RAYMOND on CPAP Chronic rhinitis Asthma-COPD overlap syndrome PAF (paroxysmal atrial fibrillation) (~2017) Echocardiogram abnormal Encounter for screening for lung cancer Edema leg Venous insufficiency of both lower extremities AC (acromioclavicular) joint arthritis BPH (benign prostatic hyperplasia) Seasonal allergies Hyperlipidemia Surgical History History of appendectomy History of esophagogastroduodenoscopy (EGD) History of total left hip replacement (~2019) History of repair of right rotator cuff (~2017) History of nasal septoplasty (~2008) History of colonoscopy History of cataract (~2009) Family History Father No problems noted. Mother CAD (coronary artery disease) CHF (congestive heart failure) HTN (hypertension) Brother No problems noted. Brother No problems noted. Sister No problems noted. Sister No problems noted. Sister Mental health disorder Son No problems noted. Son No problems noted. Social History Household Members: Spouse, Family and Children Housing: House Do you presently have visiting nurse or other home services: No Alcohol intake: current Alcohol intake frequency: holidays/special occasions only Patient Tobacco Use Status: Former Tobacco user Tobacco use type: Cigarette Years Smoked: 40 years e-Cigarette/Vaping Use: Former Use Second Hand Smoke Exposure: No Advance Directives Date on File: 10/10/22 service: Yes Current occupational status: retired Cognitive needs: No Hearing needs: No Vision needs: No Physical Exam Vital Signs: Last Vital Signs Pulse 108 H 01/05/25 10:44 BP 122/54 L 01/05/25 10:44 Pulse Ox 93 01/05/25 10:44 Oxygen Delivery Method Room Air 01/05/25 10:44 BMI result Body Mass Index 34.4 Comfortable Neck supple no JVD. Lungs entry equal no rales. Bilateral wheezing Heart S1-S2 heard no gallop or rub. Abdomen soft nontender. Neuro alert awake oriented. No asterixis. Extremities 1+ edema. Erythema and legs. Results Reviewed Nephrology Results: Renal US 10/11/23 Assessment & Plan Assessment & Plan (1) Edema leg: Comment: chronic from venous insufficiency Code(s): R60.0 - Localized edema Category: Medical (2) CKD (chronic kidney disease): Code(s): N18.9 - Chronic kidney disease, unspecified Category: Medical Qualifiers: Chronic kidney disease stage: unspecified stage Qualified Code(s): N18.9 - Chronic kidney disease, unspecified (3) Edema: Code(s): R60.9 - Edema, unspecified Category: Medical (4) Carotid stenosis, bilateral: Code(s): I65.23 - Occlusion and stenosis of bilateral carotid arteries Category: Medical (5) Hypertension: Code(s): I10 - Essential (primary) hypertension Category: Medical Qualifiers: Hypertension type: primary hypertension Qualified Code(s): I10 - Essential (primary) hypertension Plan . 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 Superimposed CHATO due to hypoperfusion in the setting of LATONIA inhibitors and diuretics. Creatinine is improved and down to 1.9 from 3.3 with cautious diuresis cr stable around 1.7 since jan 2024 Renal ultrasonogram was unremarkable No significant proteinuria serum immunofixation shows IgG kappa monoclonal protein Urinary sediments are bland therefore glomerular/ interstitial disease seem unlikely Echocardiogram revealed normal right ventricular pressures without evidence of right heart failure Serum albumin was relatively low at 3.1. Mild elevation in alkaline phosphatase and ALT; repeat LFTs were normal Keep current dose of LAsix QOD No need for antibiotics at this time Stay on low-sodium diet. Leg elevation would avoid calcium channel blockers like amlodipine Agree with holding LATONIA inhibitors for now Follow up with Dr. Head for pulmonary issues . Orders: Orders Comprehensive Met. Panel Today N18.9 - Chronic kidney disease, unspecified Basic Metabolic Panel 4 Months N18.9 - Chronic kidney disease, unspecified Complete Blood Count Auto Diff Today N18.9 - Chronic kidney disease, unspecified Total Protein Urine Random Today N18.9 - Chronic kidney disease, unspecified UA and rflx microscopic Today N18.9 - Chronic kidney disease, unspecified Creatinine Urine Today N18.9 - Chronic kidney disease, unspecified Medications: Refilled furosemide 40 mg PO Q OTHER DAY 90 tabs 0RF metolazone 2.5 mg PO .1x week 10 tabs 1RF Coding Level of Care Code Est Pt Level 4 (98304) Diagnoses Edema leg R60.0 Chronic kidney disease, unspecified CKD stage N18.9 Chronic kidney disease stage: unspecified stage Edema R60.9 Carotid stenosis, bilateral I65.23 Primary hypertension I10 Hypertension type: primary hypertension
--- OUTSIDE RECORDS SUMMARY | 2025-01-05 12:07 | XMS_ITS | Continuity of Care Document ---
Author Name [facility] Organization [facility] Care Team Providers Care Policy Change Clerks Supervisor Name Role Phone [facility] Unavailable Unavailable Medications Combined list of outpatient [...] INHALATION, LUPIN PHARMACEU, 8.5 g CANISTER Active [id number] 4 2023 8.5 Pharmac y Data Transac tion Service Facilit y BUMETANIDE (BUMETANIDE ), 0.5MG, TABLET, ORAL, [facility], 100 ea. BOTTLE Active [id number] 4 2023 30 Pharmac y Data Transac tion Service Facilit y BUMETANIDE (BUMETANIDE ), 0.5MG, TABLET, ORAL, [facility], 100 ea. BOTTLE Active [id number] 4 2023 30 Pharmac y Data Transac tion Service Facilit y Social History Combined list of available smoking, tobacco, and other social history from Department of Defense and Veterans Affairs facilities. Social History Type Response Date Comment Sourc e This section is an empty social history section. DoD
--- OUTSIDE RECORDS SUMMARY | 2025-01-05 12:08 | XMS_ITS | Clinical Summary ---
Author Organization 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, CMS/[facility] V28) 018 DX:Pneumoconiosis (HCC) Asthma-COPD overlap syndrome (CMS/HCC V24, CMS/HCC V28) 05/29/2017 DX:Asthma-COPD overlap syndr ome (HCC) Allergic rhinitis 05/29/2017 DX:Allergic rh initis Nasal polyps 05/29/2017 DX:Nasal polyps Social History Tobacco Use Types Packs/Day Years Used Date Smoking Tobacco: Former Cigarettes Smokeless Tobacco: Never Alcohol Use Standard Drinks/Week Comments Yes 3 (1 standard drink = 0.6 oz pur e alcohol) Sex and Gender Information Value Date Recorded Sex Assigned at Not on file Legal Sex Male 1:27 PM EST Gender Identity Not on file Sexual Orientation Not on file Obstetrics History Plan of Treatment Upcoming Encounters Date Type Department Care Team (Late st Contact Info) Description 02/03/2025 10:45 AM EDT Appointment [facility] CT Scan [address] [place] [address] Health Maintenance Due Date Last Done Comments DTaP,Tdap,and Td Vaccines (1 - Tdap) 1974 Pneumococcal Vaccine: 50+ Ye ars (1 of 2 - PCV) 1974 Zoster Vaccines (1 of 2) 2005 RSV Immunization Adult Patie nts (1 - Risk 60-74 years 1-dose series) 2015 Abdominal Aortic Aneurysm (A AA) Screen 04/17/2022 Cholesterol Screening (Lipid Panel) 04/17/2022 Colorectal Cancer Screening: Colonoscopy 04/17/2022 Falls Risk Assessment 04/17/2022 Hepatitis C Screening 04/17/2022 Medicare Annual Wellness Visit 04/17/2022 Social Influencers of Health Screening 04/17/2022 COVID-19 Vaccine (1 - 2023-2 5 season) 2024 Depression Screening 05/20/2024 Influenza Vaccine (#1) 2025 HIB Vaccines Aged Out No longer eligi ble based on patient's age to complete this topic HPV Vaccines Aged Out No longer eligi ble based on patient's age to complete this topic Hepatitis A Vaccines Aged Out No long er eligible based on patient's age to complete this topic Hepatitis B Vaccines Aged Out No long er eligible based on patient's age to complete this topic IPV Vaccines Aged Out No longer eligi ble based on patient's age to complete this topic MMR Vaccines Aged Out No longer eligi ble based on patient's age to complete this topic Meningococcal ACWY Vaccine Aged Out N o longer eligible based on patient's age to complete this topic Meningococcal B Vaccine Aged Out No l onger eligible based on patient's age to complete this topic RSV Immunization Patients Un jodee 20 months Aged Out No longer eligible b ased on patient's age to complete this topic Varicella Vaccines Aged Out No longer eligible based on patient's age to complete this topic Insurance MEDICARE [facility] Care Teams Biomedical Repair Technician Relationship Specialty Start Date End Date Rahul Becerra MD [address] [place] [address] Dr [address] ARIANNE Payne PCP - General Internal Medicine 03/18/17
== END 2025-01-05 10:56 | disposition home or self-care (01) ==
LOC: HO.HKA 10:42
PROVIDERS: PCP Family Medicine; Visit Provider Internal Medicine Hypertension Specialist
DX: R60.0 Localized edema (principal); I12.9 Hypertensive chronic kidney disease with stage 1 through stage 4 chronic kidney disease, or unspecified chronic kidney disease; N18.9 Chronic kidney disease, unspecified; R60.9 Edema, unspecified; I65.23 Occlusion and stenosis of bilateral carotid arteries
CPT/HCPCS: 99214

== ENCOUNTER → 2025-01-05 10:41 | Outpatient (BNVA) | payer MEDICARE, OTHER, SELFPAY | PROVIDERS: PCP Family Medicine; Visit Provider Internal Medicine Hypertension Specialist | DX: J44.1 Chronic obstructive pulmonary disease with (acute) exacerbation (principal); J31.0 Chronic rhinitis; J44.89 Other specified chronic obstructive pulmonary disease; R91.8 Other nonspecific abnormal finding of lung field; G47.34 Idiopathic sleep related nonobstructive alveolar hypoventilation; G47.33 Obstructive sleep apnea (adult) (pediatric); Z99.89 Dependence on other enabling machines and devices; Z79.2 Long term (current) use of antibiotics; Z79.01 Long term (current) use of anticoagulants; Z79.52 Long term (current) use of systemic steroids; Z79.899 Other long term (current) drug therapy; I12.9 Hypertensive chronic kidney disease with stage 1 through stage 4 chronic kidney disease, or unspecified chronic kidney disease; N18.9 Chronic kidney disease, unspecified; R60.0 Localized edema; I65.23 Occlusion and stenosis of bilateral carotid arteries | CPT/HCPCS: 99212 ==

== ENCOUNTER 2025-01-05 13:18 | Outpatient (AMB) | payer MEDICARE, OTHER, SELFPAY ==
--- NOTE | 2025-01-05 13:20 | MHC.OFFVIS ---
Vital Signs 01/05/25 13:21 Height 5 ft 9 in Weight 233 lb 11.04 oz BMI 34.5 BP 124/40 L Blood Pressure Location Lt brachial Position Sitting Pulse 119 H Pulse Source Pulse Oximeter Pulse Oximetry (%) 95 Oxygen Delivery Method Room Air Intake Visit Reasons: Shortness of breath Agriculturist Required: No Accompanied by: Self / Same As Patient Allergies watermelon (WATERMELON) Allergy (Severe, Verified 01/05/25 13:26) ANAPHYLAXIS Iodinated Contrast Media (IV CONTRAST) Allergy (Intermediate, Verified 01/05/25 13:26) LIGHT HEADED AND SHORTNESS OF BREATH HPI Comments Details: Patient is a 69 y/o man with history of underlying pulmonary nodules, RAYMOND on CPAP, asthma COPD overlap syndrome, tracheobronchomalacia in addition to hypersensitivity pneumonitis due to multiple exposures especially at while he was working. He has been using CPAP therapy the CPAP therapy has been very affecting beneficial. The CPAP therapy he uses every night for more than 4 hours. Recently he did have a CT scan of his chest for the lung cancer screening program and is nodular densities have resolved which is very reassuring. He is scheduled for the CT scan in a year's time. I am hopeful that we can decrease the amount of Xopenex that he is using and then hopefully decrease the amount of budesonide that he is using. His CPAP therapy has been affecting beneficial. He has been getting supplies through [employer] now regularly. His CPAP therapy he does use for more than 4 hours a night. He has lost about 30 lb. He still on Daliresp that is likely contributing to that. If he co 08/28/2023 the patient is here for sick visit. He is having hard time with his breathing. The patient recently call the office with worsening risk was sent to the ER. He wants admitted on August 04 to the hospital. He had a chest x-ray demonstrating bilateral pneumonia. This is superimposed on his underlying interstitial lung disease. He was treated with prednisone addition to antibiotics subsequently discharged. He did not require oxygen upon discharge. The patient has been weaning off the prednisone down to 10 mg of prednisone having hard time with his breathing. He is then in bed now for about 3 days. His coughing has gotten worse expectorating discolored mucus. Denies any hemoptysis. In the office he does have significant wheezing chest tightness. Will go ahead and give him a couple treatments of DuoNeb. Hopefully we can improve his respiratory symptoms we can start antibiotics and give him additional Solu-Medrol and prednisone for home. If however he does not improve after the breathing treatments then will consider transferring him to the ER. 09/18/2023 the patient is here for a pulmonary follow-up visit. The patient recently was hospitalized because of the bad bronchopneumonia and asthma exacerbation. He is now recovering. He feels a little better although starting to get chest tightness again. He has been using prednisone 20 mg daily in his also been using all his respiratory medicines. He is also developing some lower extremity edema swelling redness. Is tender to the touch. It appears to be bilateral cellulitis. I did review his chest x-ray he did have run this is a week ago and compared to the x-ray he had when he was admitted to the hospital still demonstrates hazy opacities suggesting some component of pneumonitis. Therefore will increase the prednisone and also will keep him on some antibiotics to treat him for cellulitis. He will return in 3-4 weeks. If he has any worsening symptoms he will call prior to that visit. 10/07/2023 the patient is here for a pulmonary follow-up visit. The patient is feeling lot better. He is recovering now closer to his baseline. He is down to 20 mg of prednisone. He would like to come off. However, will need to very careful as we wean off slowly. Therefore will decrease by 5 mg every 7-10 days. Hopefully he can come off completely. He continues on his respiratory therapy with good effect. He also continues with CPAP using more than 4 hours a night. The CPAP therapy continues to be affecting beneficial. The lower extremity edema as a little better he continues to have some degree of erythema but it does not look infected anymore. He did complete the doxycycline. Otherwise patient is doing better so therefore we will continue his current respiratory regimen and hopefully we can wean off completely from the prednisone. Will follow-up in 4 months. 04/15/2024 the patient is here for a pulmonary follow-up visit. Overall he is doing okay. Does complaint of dyspnea on exertion. Sometimes he is so short of breath that he goes to his home in uses his oxygen via his concentrator. Which is the portability outside of the home. The patient also has been dealing with renal failure. This kidney now is back to baseline although does have some chronic renal insufficiency. The patient continues on injections, Tezspire. 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 He has been developing increasing infections. Therefore we will be talking to his loader operator supervisor regarding switching his biologic to a different regimen. I do believe does good options specially if he continues with significant COPD and wheezing symptoms. The patient did have a walking oximetry in the office and he did desaturate down to 88% with activity was visibly dyspneic and the heart rate went up to 120 beats per minute. Dyspnea score 7/10. 2 L pulse with sufficient to keep his oxygen around 94 % with activity. He already has oxygen through [employer] as the concentrator home. He will need portability. I will request a portable oxygen concentrator for him to use for better portability outside of the home. Also he will continue to use his CPAP at home. We did review his sleep study. We had requested a titration study but it looks like they just did a regular sleep. Therefore, will have him do an overnight oximetry on room air to see if he still needs the oxygen at nighttime. 07/16/2024 the patient is here for a pulmonary follow-up visit. He has been struggling now for several weeks. He has had worsening cough shortness of breath chest tightness. Moderate to severe. He has been using his nebulizer regularly 2 to 4 times a day and has been continued his other medicines. The patient did run out of his prednisone though. He was trying to wean himself off it. Right now he does have significant chest tightness and wheezing. Explained to him that he probably have to stay on a small dose of prednisone regularly to avoid his severe exacerbations. In the meantime he is using the CPAP the CPAP therapy continues to be affecting beneficial. He is using it with oxygen. Will have to do an overnight oximetry on room air to see if he does not need the oxygen any longer while sleeping. He can do that whenever he is feeling better. He continues on the biologic therapy, Tezspire. He is going to be following up soon with his loader operator supervisor to see if any further changes need to take place. 08/10/2024 the patient is here for pulmonary follow-up visit. Overall he is feeling a lot better. He is down to 10 mg of prednisone. He is going on a cruise next weeks. At this point will go ahead and optimize his respiratory therapy by adding Spiriva to his regimen. He also needs any nebulizer since is broken. Will send a prescription to the local [employer] company. Hopefully can get a before his trip. The patient continues to CPAP therapy. The CPAP therapy continues to be affecting beneficial he does use it for more than 4 hours. He will take the CPAP with him. He also continues on the biologic therapy, Tezspire with good results. Right now the patient continues to have a little wheezing on exam but closer to his baseline. I am hopeful that the long-acting muscarinic antagonist be helpful. Will follow-up in a couple months. After he gets back from his trip he can start decreasing the prednisone some. But hopefully will stay on small dose and try to find the lowest most effective dose. 10/21/2024 the patient is here for pulmonary follow-up visit. She is still struggling with breathing. He had to increase the prednisone to 20 mg because he was having worsening breathing. He continues on the Tezspire. He needs to follow-up with Allergy immunology to see if he has a better candidate for Dupixent. He already tried and failed Fasenra. In the meantime the patient has been using nebulized therapy with Brovana and budesonide in addition to the albuterol. The patient is still struggling even with all those breathing treatments. Will did talk about starting Ohtuvayre. This will be a better option for him to try to minimize steroid in the prednisone dose is too high for him. Ideally we can start him on the nebulized therapy and subsequently we can also transitioning to inhalers so he does not have to take some any nebulized treatments a day. He continues uses CPAP at nighttime with good effect. CPAP therapy has been affecting beneficial. He does use it for more than 4 hours a night. Although initially he did have an overnight test demonstrating he did in the oxygen but he is now waking up short of breath and felt better on the oxygen so he went back on it. He also has the oxygen portable oxygen concentrator that he uses with activity outside of the home that is also been affecting beneficial. 01/05/2025 the patient is here for pulmonary sick visit. He has been having worsening respiratory symptoms. The patient has been on 20 mg of prednisone still having hard time breathing. Very dyspneic with minimal activity. He did start the new nebulized therapy, ohtuvaye. But, has not seen any significant improvement. Try to simplify his nebulizer therapy because now he is on multiple agents. Therefore, will switch him to an inhaler such as Trelegy and therefore we can hold off on the Brovana and the budesonide and the Spiriva. In addition to that the patient will start doxycycline and will continue with the prednisone for now. He continues with the Tezspire through the allergy office. If he continues to be symptomatic we can consider bronchoscopy to assess the airways and for deep cultures. We could also consider referral to [facility] for 2nd opinion because of his significant obstructive disease refractory to an aggressive regimen of medications. [facility] Medical History (Reviewed 10/19/24 @ 11:05 by Rosy Burciaga [facility]) Nocturnal hypoxia CHF (congestive heart failure) Chronic lung disease COPD with acute exacerbation Chronic lung disease Chronic lung disease Tubular adenoma of colon (~2005) COPD (chronic obstructive pulmonary disease) Pulmonary nodules RAYMOND on CPAP Chronic rhinitis Asthma-COPD overlap syndrome PAF (paroxysmal atrial fibrillation) (~2017) Echocardiogram abnormal Encounter for screening for lung cancer Edema leg Venous insufficiency of both lower extremities AC (acromioclavicular) joint arthritis BPH (benign prostatic hyperplasia) Seasonal allergies Hyperlipidemia Surgical History History of appendectomy History of esophagogastroduodenoscopy (EGD) History of total left hip replacement (~2019) History of repair of right rotator cuff (~2017) History of nasal septoplasty (~2008) History of colonoscopy History of cataract (~2009) Family History Father No problems noted. Mother CAD (coronary artery disease) CHF (congestive heart failure) HTN (hypertension) Brother No problems noted. Brother No problems noted. Sister No problems noted. Sister No problems noted. Sister Mental health disorder Son No problems noted. Son No problems noted. Social History (Reviewed 01/05/25 @ 13:28 by Aleja Ibarra [facility]) Household Members: Spouse, Family and Children Housing: House Do you presently have visiting nurse or other home services: No Alcohol intake: current Alcohol intake frequency: holidays/special occasions only Patient Tobacco Use Status: Former Tobacco user Tobacco use type: Cigarette Years Smoked: 40 years e-Cigarette/Vaping Use: Former Use Second Hand Smoke Exposure: No Advance Directives Date on File: 10/10/22 service: Yes Current occupational status: retired Cognitive needs: No Hearing needs: No Vision needs: No Review of Systems Const Denies fatigue Eyes Denies change in vision ENT Reports nasal congestion, Reports nasal discharge and Denies sore throat Card Denies chest pain, Reports dyspnea and Reports dyspnea on exertion Resp Reports chest congestion, Reports cough, Denies hemoptysis, Reports dyspnea, Reports dyspnea on exertion and Reports wheezing GI Reports no additional complaints Musc Reports no additional complaints Skin/Breast Denies rash Neuro Reports no additional complaints Psych Reports no additional complaints Endo Denies fatigue and Denies heat intolerance Kelvin/Lymph Denies easy bleeding, Denies easy bruising and Denies lymphadenopathy Aller/Immun Reports wheezing Physical Exam Vital Signs: Last Vital Signs Pulse 119 H 01/05/25 13:21 BP 124/40 L 01/05/25 13:21 Pulse Ox 95 01/05/25 13:21 Oxygen Delivery Method Room Air 01/05/25 13:21 BMI result Body Mass Index 34.5 Assessment & Plan Assessment & Plan (1) COPD (chronic obstructive pulmonary disease): Code(s): J44.9 - Chronic obstructive pulmonary disease, unspecified Category: Medical Qualifiers: COPD type: COPD with acute exacerbation Qualified Code(s): J44.1 - Chronic obstructive pulmonary disease with (acute) exacerbation (2) Asthma-COPD overlap syndrome: Code(s): J44.9 - Chronic obstructive pulmonary disease, unspecified Category: Medical (3) Pulmonary nodules: Code(s): R91.8 - Other nonspecific abnormal finding of lung field Category: Medical (4) RAYMOND on CPAP: Code(s): G47.33 - Obstructive sleep apnea (adult) (pediatric); Z99.89 - Dependence on other enabling machines and devices Category: Medical (5) Chronic rhinitis: Code(s): J31.0 - Chronic rhinitis Category: Medical (6) Nocturnal hypoxia: Code(s): G47.34 - Idiopathic sleep related nonobstructive alveolar hypoventilation Category: Medical Plan continue Tezspire [id number], Will call Dr Ornelas about changing Biologic stop Brovana/BUdesonide BID Trelegy continue Ohtuvayre stop Spiriva start Doxycycline continue Prednisone 10mg daily, then after the cruise he will try to decrease to 10/5 alternating->5mg ANN as needed continue APAP, adjusted pressures 6-12 oxygen with activity: POC 2L/min with activity. Requesting POC for better portability outside of the home continue oxygen supplementation while sleeping with CPAP. F/U 1-2 months Medications: New kmbbbrbypbr-fltjxyjar-dejcfusi 200-62.5-25 mcg (Trelegy Ellipta) 1 inh inhalation DAILY 60 ea 12RF 30 days prednisone PO daily; Take 6 tabs daily x 3 days, then 5 tabs x 3 days, then 4 tabs x 3 days, then 3 tabs x 3 days, then 2 tabs daily x 3 days, then 1 tab x 3 days to complete. 63 tabs 0RF 18 days doxycycline monohydrate 100 mg PO DAILY 28 tabs 2RF 28 days Changed From levalbuterol HCl 1.25 mg (3 mL) inhalation BID 90 days 540 mL 3RF J44.9 - Chronic obstructive pulmonary disease, unspecified To levalbuterol HCl 1.25 mg (3 mL) inhalation QID 1,080 mL 3RF 90 days J44.9 - Chronic obstructive pulmonary disease, unspecified Coding Level of Care Code Est Pt Level 4 (87573) Complex EM visit Add On G2211 Diagnoses Chronic obstructive pulmonary disease with acute exacerbation J44.1 COPD type: COPD with acute exacerbation Asthma-COPD overlap syndrome J44.9 Pulmonary nodules R91.8 RAYMOND on CPAP G47.33; Z99.89 Chronic rhinitis J31.0 Nocturnal hypoxia G47.34 Time Spent (min) 17
[2025-01-05 13:21] VITALS: BP 124/40; PULSE 119; O2SAT 95; BMI 34.5
== END 2025-01-05 14:01 | disposition home or self-care (01) ==
LOC: HO.HPS 13:19
PROVIDERS: PCP Family Medicine; Visit Provider Hospitalist
DX: J44.1 Chronic obstructive pulmonary disease with (acute) exacerbation (principal); J44.9 Chronic obstructive pulmonary disease, unspecified; R91.8 Other nonspecific abnormal finding of lung field; G47.33 Obstructive sleep apnea (adult) (pediatric); Z99.89 Dependence on other enabling machines and devices; J31.0 Chronic rhinitis; G47.34 Idiopathic sleep related nonobstructive alveolar hypoventilation
CPT/HCPCS: 99214; G2211

== ENCOUNTER 2025-01-08 13:33 | Outpatient (REF) | payer MEDICARE, OTHER, SELFPAY ==
--- OUTSIDE RECORDS SUMMARY | 2025-01-08 13:35 | XMS_ITS | Continuity of Care Document ---
Author Name [facility] Organization [facility] Care Team Providers Care Crimp Setter Name Role Phone [facility] Unavailable Unavailable Medications Combined list of outpatient medications from Department of Defense and Veterans Affairs facilities.Medications provided include 1) outpatient medications from the last 15 months, and 2) patient-reported medications. Medication Details Route Status Patient Instructions Prescription Expires Prescription Number Last Dispense Date Ordering Provider Order Date Order Qty Source BUMETANIDE (BUMETANIDE ), 0.5MG, TABLET, ORAL, [facility], 100 ea. BOTTLE Active [id number] 2023 30 Pharmac y Data Transac tion Service Facilit y Social History Combined list of available smoking, tobacco, and other social history from Department of Defense and Veterans Affairs facilities. Social History Type Response Date Comment Sour e This section is an empty social history section. DoD
--- OUTSIDE RECORDS SUMMARY | 2025-01-08 13:36 | XMS_ITS | Clinical Summary ---
Author Organization [facility] [address] [facility] Address [address] [place] [address] Phone Care Team Providers Care Director Index Name Role Phone Rahul Becerra MD Primary Care Provider [phone] Medical History Medical History Date Comments RAYMOND (obstructive sleep apnea) 05/29/2017 DX :RAYMOND (obstructive sleep apnea); COMMENT: On CPAP Pneumoconiosis ([facility] V24, [facility] V28) 018 DX:Pneumoconiosis (HCC) Asthma-COPD overlap syndrome [...] Info) Description 02/03/2025 10:45 AM EDT Appointment [facility] CT Scan [address] [place] [address] Health Maintenance Due Date Last [...] age to complete this topic Insurance MEDICARE [facility] Care Teams Director Index Relationship Specialty Start Date End Date Rahul Becerra MD [address] [place] [address] Dr [address] ARIANNE Payne PCP - General Internal Medicine 03/18/17
[2025-01-08 14:39] LABS: MANUAL DIFF FLAG NO
[2025-01-08 14:40] LABS: Hematocrit 37.9 % (42.0-52.0); Hemoglobin 12.5 g/dl (14.0-18.0); Imm Gran Abs Auto 0.04 X10*3/uL (0.00-0.03); Imm Gran Pct Auto 0.4 % (0.0-0.4); Lymphocytes Absolute Auto 1.0 X10*3/uL (1.2-4.9); Mean Corpuscular HGB Conc 33.0 g/dl (31.0-36.0); Mean Corpuscular Hemoglobin 30.1 pg (27.0-33.0); Mean Corpuscular Volume 91.3 fL (80.0-98.0); NRBC Abs Auto 0.000 X10*3/uL (0.0-0.012); NRBC Pct Auto 0.0 /100WBC (0.0-0.2); Platelet Count 421 X10*3/uL (160-400); Red Blood Count 4.15 X10*6/uL (4.60-5.80); White Blood Count 10.1 X10*3/uL (4.8-10.8)
[2025-01-08 14:56] LABS: Alanine Aminotransferase 17 U/L (0-40); Albumin Level 3.9 g/dL (3.5-5.0); Alkaline Phosphatase 91 U/L (39-117); Anion Gap 12 (12-20); Aspartate Amino Transferase 23 U/L (5-37); Blood Urea Nitrogen 20 mg/dL (9-16); Calcium 9.7 mg/dL (8.4-10.2); Carbon Dioxide 24 mmol/L (22-29); Chloride 108 mmol/L (96-108); Estimated Glomerular Filt Rate 44; Potassium 4.7 mmol/L (3.3-5.1); Sodium 139 mmol/L (135-145); Total Protein 7.1 g/dL (6.5-8.0)
== END 2025-01-08 13:34 | disposition home or self-care (01) ==
LOC: HO.HMGCLDS 13:33
PROVIDERS: PCP Family Medicine; Visit Provider Internal Medicine Hypertension Specialist
DX: N18.9 Chronic kidney disease, unspecified (principal)
CPT/HCPCS: 36415; 80053; 85025

== ENCOUNTER 2025-01-11 11:20 | Outpatient (REF) | payer MEDICARE, OTHER, SELFPAY ==
--- OUTSIDE RECORDS SUMMARY | 2025-01-11 13:35 | XMS_ITS | Continuity of Care Document ---
Author Name [facility] Organization [facility] Care Team Providers Care Sanitation Technician Name Role Phone [facility] Unavailable Unavailable Medications Combined list of outpatient medications from Department of Defense and Veterans Affairs facilities.Medications provided include 1) outpatient medications from the last 15 months, and 2) patient-reported medications. Medication Details Route Status Patient Instructions Prescription Expires Prescription Number Last Dispense Date Ordering Provider Order Date Order Qty Source BUMETANIDE (BUMETANIDE ), 0.5MG, TABLET, ORAL, [facility], 100 ea. BOTTLE Active [id number] 2023 30 Pharmac y Data Transac tion Service Facilit y Social History Combined list of available smoking, tobacco, and other social history from Department of Defense and Veterans Affairs facilities. Social History Type Response Date Comment Sour e This section is an empty social history section. DoD
--- OUTSIDE RECORDS SUMMARY | 2025-01-11 13:37 | XMS_ITS | Clinical Summary ---
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
[2025-01-11 16:29] LABS: Appearance Urine Clear; Glucose Urine UA Negative (Negative); PH 5.0 (5.0-9.0); Specific Gravity - Urine 1.015 (1.005-1.025)
== END 2025-01-11 11:21 | disposition home or self-care (01) ==
LOC: HO.HMGCLNP 11:20
PROVIDERS: PCP Family Medicine; Visit Provider Internal Medicine Hypertension Specialist
DX: N18.9 Chronic kidney disease, unspecified (principal)
CPT/HCPCS: 81003; 82570

== ENCOUNTER 2025-01-14 14:58 | Outpatient (AMB) | payer MEDICARE, OTHER, SELFPAY ==
--- NOTE | 2025-01-14 15:00 | MHC.OFFVIS ---
Vital Signs 01/14/25 15:07 Height 5 ft 9 in Weight 233 lb BMI 34.4 Intake Visit Reasons: OV - Left Shoulder Pain Intake Note: Kiran is a 69 year old male who presents today for a follow up appointment for his left shoulder rotator cuff insufficiency. At his last visit we discussed the role of cortisone injection and physical therapy. Since he has a phobia of needles we proceeded with physical therapy. Patient reports he has been attending physical therapy and has already completed 4 appointments. He states that he believes his range of motion has gotten worse since starting physical therapy but will continue to see if progress will be made overtime. Allergies watermelon (WATERMELON) Allergy (Severe, Verified 01/14/25 15:05) ANAPHYLAXIS Iodinated Contrast Media (IV CONTRAST) Allergy (Intermediate, Verified 01/14/25 15:05) LIGHT HEADED AND SHORTNESS OF BREATH HPI HPI OV - Left Shoulder Pain: Details: Mr. Dela Cruz is a 69-year-old male who presents to the office today for follow up of left shoulder pain. He states that he was trying to throw something with his right upper extremity in the beginning of October. After following through with the throw his arm drop to his side and he felt a pop and immediate pain. He has been attending physical therapy. He has attended for total sessions and feels as though his pain has increased due to starting physical therapy and therefore causing range of motion to decrease. [facility] Medical History Nocturnal hypoxia CHF (congestive heart failure) Chronic lung disease COPD with acute exacerbation Chronic lung disease Chronic lung disease Tubular adenoma of colon (~2005) COPD (chronic obstructive pulmonary disease) Pulmonary nodules RAYMOND on CPAP Chronic rhinitis Asthma-COPD overlap syndrome PAF (paroxysmal atrial fibrillation) (~2017) Echocardiogram abnormal Encounter for screening for lung cancer Edema leg Venous insufficiency of both lower extremities AC (acromioclavicular) joint arthritis BPH (benign prostatic hyperplasia) Seasonal allergies Hyperlipidemia Surgical History History of appendectomy History of esophagogastroduodenoscopy (EGD) History of total left hip replacement (~2019) History of repair of right rotator cuff (~2017) History of nasal septoplasty (~2008) History of colonoscopy History of cataract (~2009) Family History Father No problems noted. Mother CAD (coronary artery disease) CHF (congestive heart failure) HTN (hypertension) Brother No problems noted. Brother No problems noted. Sister No problems noted. Sister No problems noted. Sister Mental health disorder Son No problems noted. Son No problems noted. Social History Household Members: Spouse, Family and Children Housing: House Do you presently have visiting nurse or other home services: No Alcohol intake: current Alcohol intake frequency: holidays/special occasions only Patient Tobacco Use Status: Former Tobacco user Tobacco use type: Cigarette Years Smoked: 40 years e-Cigarette/Vaping Use: Former Use Second Hand Smoke Exposure: No Advance Directives Date on File: 10/10/22 service: Yes Current occupational status: retired Cognitive needs: No Hearing needs: No Vision needs: No Review of Systems Const All systems reviewed & are unremarkable except as noted in HPI and below Physical Exam Vital Signs: BMI result Body Mass Index 34.4 Const General: cooperative, healthy appearing and no acute distress Resp Effort & Inspection: normal respiratory effort and able to speak in complete sentences Extrem Other: Left shoulder forward flexion to 60 degrees abduction to 45 degrees. Able to reach back pocket. Unable to tolerate empty can. Pain with cross-body reach. NVI. Psych Appearance: grossly normal Mental Status: mental status grossly normal Attitude: cooperative Assessment & Plan Assessment & Plan (1) Rotator cuff insufficiency of left shoulder: Code(s): M25.312 - Other instability, left shoulder Category: Medical Plan Mr. Dela Cruz is a 69-year-old male who presents to the office today for follow up of left shoulder pain. He states that he was trying to throw something with his right upper extremity in the beginning of October. After following through with the throw his arm drop to his side and he felt a pop and immediate pain. He has been attending physical therapy. He has attended for total sessions and feels as though his pain has increased due to starting physical therapy and therefore causing range of motion to decrease. While in the office today, we again discussed possibility of cortisone injection. However, the patient is adamantly against proceeding with cortisone injection as he has a significant phobia of needles. He reports that if he were to receive an injection he would have to have this performed under anesthesia. Therefore, he will continue to try to treat this conservatively with physical therapy. As he has only tried 2 weeks of physical therapy we will give this more time and re-evaluate him in 4 weeks, sooner if needed. Coding Level of Care Code Est Pt Level 3 (60101) Diagnoses Rotator cuff insufficiency of left shoulder M25.312
[2025-01-14 15:07] VITALS: BMI 34.4
--- OUTSIDE RECORDS SUMMARY | 2025-01-14 15:30 | XMS_ITS | Continuity of Care Document ---
Author Name [facility] Organization [facility] Care Team Providers Care Lpn Cma Name Role Phone [facility] Unavailable Unavailable Medications Combined list of outpatient medications from Department of Defense and Veterans Affairs facilities.Medications provided include 1) outpatient medications from the last 15 months, and 2) patient-reported medications. Medication Details Route Status Patient Instructions Prescription Expires Prescription Number Last Dispense Date Ordering Provider Order Date Order Qty Source BUMETANIDE (BUMETANIDE ), 0.5MG, TABLET, ORAL, [facility], 100 ea. BOTTLE Active [id number] 2023 30 Pharmac y Data Transac tion Service Facilit y Social History Combined list of available smoking, tobacco, and other social history from Department of Defense and Veterans Affairs facilities. Social History Type Response Date Comment Sour e This section is an empty social history section. DoD
--- OUTSIDE RECORDS SUMMARY | 2025-01-14 15:39 | XMS_ITS | Clinical Summary ---
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, [facility]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 DX:Pneumoconiosis ([facility]) Asthma-COPD overlap syndrome ([facility] V24, [facility] V28) 05/29/2017 DX:Asthma-COPD overlap syndr ome ([facility]) Allergic rhinitis 05/29/2017 DX:Allergic rh initis Nasal [...] Upcoming Encounters Date Type Department Care Team ([facility] st Contact Info) Description 02/03/2025 10:45 AM EDT Appointment [facility] CT Scan [address] [place] [address] Health Maintenance Due Date Last [...] age to complete this topic Insurance MEDICARE [facility] Care Teams Arson Investigator Relationship Specialty Start Date End Date Rahul Becerra MD [address] [place] [address] [address] ARIANNE Payne PCP - General Internal Medicine 03/18/17
--- OUTSIDE RECORDS SUMMARY | 2025-01-14 15:39 | XMS_ITS | Encounter Summary ---
Author Organization [facility] Address [address] [place] [address] Care Team Providers Care Scheduling Analyst Name Role Phone Rahul Becerra MD Primary Care Provider [phone] Reason for Visit * Reason Onset Date Comments Appointment 01/14/2025 1st Notification Encounter Details Date Type Department Care Team ([facility] st Contact Info) Description 01/14/2025 Telephone Lung Screening Program - [address] [place] [id number] Sona Candelario MA Social History Tobacco Use Types Packs/Day Years Used Date Smoking Tobacco: Former Cigarettes Smokeless Tobacco: Never Alcohol Use Standard Drinks/Week Comments Yes 3 (1 standard drink = 0.6 oz pur e alcohol) Sex and Gender Information Value Date Recorded Sex Assigned at Not on file Legal Sex Male 1:27 PM EST Gender Identity Not on file Sexual Orientation Not on file documented as of this encounter Progress Notes * Sona Candelario MA - 01/14/2025 2:48 PM EDT Kiran Dela Cruz was contacted by the Lung Cancer Screening Program today to confirm the appointmentof their Lung Cancer Screening. The patient is currently scheduled to have their screening on Monday February 03, 2025, at 1045 AM at [facility]. Patient confirmed For all screenings scheduled during the week, the patient will check in at Patient Registration on the first floor of the main hospital. For screenings that take place on the weekend or after 5pm, check-in directly in Radiology. The patient was given the Lung Cancer Screening Program phone number, , to contact if they have any additional questions, concerns or need to reschedule. Patients are encouraged to call our office and reschedule if they are exhibiting any cold-like symptoms, have recently been treated for Pneumonia or Influenza (the flu) or have had another CT of their Chest since their last screening. documented in this encounter Plan of Treatment Upcoming Encounters Date Type Department Care Team (Late st Contact Info) Description 02/03/2025 10:45 AM EDT Appointment [facility] CT Scan [address] [place] [id number] documented as of this encounter Visit Diagnoses Not on filedocumented in this encounter Care Teams Scheduling Analyst Relationship Specialty Start Date End Date Rahul Becerra MD [address] [place] [address] Dr [address] ARIANNE Payne PCP - General Internal Medicine 03/18/17 documented as of this encounter
--- OUTSIDE RECORDS SUMMARY | 2025-01-14 15:39 | XMS_ITS | Patient Health Record ---
Author Organization [facility] Address [address] [place] [address] Care Team Providers Care Pipe Organ Mechanic Name Role Phone Gin Correa MD Primary Care Provider Kwame Jackson [phone] Allergies No Known Allergies Reason For Referral No Information Medications Medication SIG (Take, Route, Frequency, Duration) Notes Start Date End Date Status Ipratropium-Albuterol 0.5-2.5 (3) MG/3ML 3 ml Inhalation every 6 hrs Active Tiotropium [place]-Olodaterol 2.5-2.5 MCG/ACT 2 puffs Inhalation Once a [...] Problem Status W/U Status Risk Notes Problem 308765942 Encounter for screening for malignant neoplasm of colon (Z12.11) Active confirmed Problem 117139585 History of adenomatous polyp of colon (Z86.010) Active confirmed Problem 125653636 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 confirmed Problem 048201350 Preprocedural examination (Z01.818) Active confirmed Problem 577484144 Gastroesophageal reflux disease, esophagitis presence not specified (K21.9) Active confirmed Problem 760152672 Long-term use of aspirin therapy (Z79.82) Active confirmed Problem Watters esophagu s (K22.70) Active confirmed Problem Diverticulosis of colon (636576606) Diverticulosis of colon (K57.30) Active confirmed Plan [...] Date MEDICARE OF [place] [address] [place] [address] [id number] GINARICCI BEALIP Self - patient is the insured [employer] [address] [place] [address] [id number] MARIAH BAKER Self - patient is the [...]
== END 2025-01-14 15:33 | disposition home or self-care (01) ==
LOC: HO.HOS 14:58
PROVIDERS: PCP Family Medicine; Visit Provider Physician Assistant
DX: M25.312 Other instability, left shoulder (principal)
CPT/HCPCS: 99213

== ENCOUNTER → 2025-01-14 14:58 | Outpatient (BNVA) | payer MEDICARE, OTHER, SELFPAY | PROVIDERS: PCP Family Medicine; Visit Provider Physician Assistant | DX: M25.312 Other instability, left shoulder (principal) | CPT/HCPCS: 99212 ==

== ENCOUNTER 2025-01-28 13:56 | Outpatient (RCR) | payer MEDICARE, OTHER, SELFPAY ==
--- NOTE | 2025-01-06 11:03 | MHC.PT.EP ---
[facility] [place] Office [place] Office [place] Office [address] [phone] F: [phone] F: [phone] F: [phone] F: [phone] Physical Therapy Plan of Care Date of Evaluation: 01/06/25 Date of Surgery: Diagnosis: other instability of L shoulder RTC insuffiency Assessment: 69 y/o R-hand dominant male with L shoulder pain. He reports pain and difficulty actively lifting arm into flexion, abduction and behind the back as well as sleeping. Examination shows WFL cervical AROM, decreased L shoulder A/PROM, painful AROM and nonpainful PROM, significantly decreased L shoulder strength. Recommend PT 2x/week for 6 weeks to address impairments, implement HEP and optimize functional mobility. Frequency and Duration: The patient will be seen 2x/week for 6 weeks Short Term Goals: 3 weeks I with HEP Pt will demonstrate 15* L shoulder AROM to faciliate functional mobiity Penitentiary Goals: 6 weeks I with HEp and self management of sx Pt will be able to actively reach into overhead cabinets with pain < 3/10 Pt will improve SPADI to 40/130 (IR 56/130) Treatment Plan: Modalities to reduce pain, spasms and effusion. Manual therapy to restore motion and function. Therapeutic exercise to improve strength and flexibility. Neuromuscular re-education for posture and balance. Therapeutic activities to return to functional activities of daily living. Electronically signed by: Heather Shore PT Please sign and return to therapist. Thank you for your referral.
--- NOTE | 2025-03-17 10:37 | MHC.PT.DC ---
[facility] Office [place] Office [place] Office [address] Charlee Foster [address] [phone] F: [phone] F: [phone] F: [phone] F: [phone] Physical Therapy Discharge Report Diagnosis: other instability of L shoulder RTC insuffiency Date of Surgery: Date of Evaluation: 01/06/25 Date of Discharge: 03/17/25 Treatments to Date: 7 Cancellations to Date: 2 No Shows to Date: 0 Discharge Status: Independent with HEP Recommend MD Follow-up Discharge Summary: Pt with moderate improvement in regards to ROM and strength, however noted plateau and pain levels remained high. Recommend f/u with MD Electronically signed by: Heather Shore PT Please sign and return to therapist. Thank you for your referral.
== END 2025-03-17 10:38 | disposition home or self-care (01) ==
LOC: HO.PT 13:56
PROVIDERS: PCP Family Medicine; Visit Provider Physician Assistant
DX: M25.312 Other instability, left shoulder (principal)
CPT/HCPCS: 97110; 97140; 97162

== ENCOUNTER 2025-02-12 10:13 | Outpatient (REF) | payer MEDICARE, OTHER, SELFPAY | END 2025-02-12 10:14 | disposition home or self-care (01) | LOC: HO.LNP 10:13 | PROVIDERS: PCP Family Medicine; Visit Provider Hospitalist | DX: G47.33 Obstructive sleep apnea (adult) (pediatric) (principal); G47.34 Idiopathic sleep related nonobstructive alveolar hypoventilation; J44.1 Chronic obstructive pulmonary disease with (acute) exacerbation; J31.0 Chronic rhinitis; J21.9 Acute bronchiolitis, unspecified; R93.89 Abnormal findings on diagnostic imaging of other specified body structures; R91.8 Other nonspecific abnormal finding of lung field; R91.1 Solitary pulmonary nodule; Z99.89 Dependence on other enabling machines and devices; Z79.899 Other long term (current) drug therapy | CPT/HCPCS: 87070; 87116; 87205; 87206; 94640; 96372; 99212; J2919 ==

== ENCOUNTER 2025-02-12 10:13 | Outpatient (AMB) | payer MEDICARE, OTHER, SELFPAY ==
[2025-02-12 10:17] VITALS: BP 130/50; PULSE 88; O2SAT 94; BMI 34.8
--- NOTE | 2025-02-12 10:17 | MHC.OFFVIS ---
Vital Signs 02/12/25 10:17 Height 5 ft 9 in Weight 235 lb 14.314 oz BMI 34.8 BP 130/50 L Blood Pressure Location Lt brachial Position Sitting Pulse 88 Pulse Source Pulse Oximeter Pulse Oximetry (%) 94 Oxygen Delivery Method Room Air Intake Visit Reasons: Obstructive sleep apnea [employer] Division Required: No Accompanied by: Self / Same As Patient Allergies watermelon (WATERMELON) Allergy (Severe, Verified 02/12/25 10:20) ANAPHYLAXIS Iodinated Contrast Media (IV CONTRAST) Allergy (Intermediate, Verified 02/12/25 10:20) LIGHT HEADED AND SHORTNESS OF BREATH HPI Comments Details: Patient is a 69 y/o man with history of underlying pulmonary nodules, RAYMOND on CPAP, asthma COPD overlap syndrome, tracheobronchomalacia in addition to hypersensitivity pneumonitis due to multiple exposures especially at while he was working. He has been using CPAP therapy the CPAP therapy has been very affecting beneficial. The CPAP therapy he uses every night for more than 4 hours. Recently he did have a CT scan of his chest for the lung cancer screening program and is nodular densities have resolved which is very reassuring. He is scheduled for the CT scan in a year's time. I am hopeful that we can decrease the amount of Xopenex that he is using and then hopefully decrease the amount of budesonide that he is using. His CPAP therapy has been affecting beneficial. He has been getting supplies through [employer] now regularly. His CPAP therapy he does use for more than 4 hours a night. He has lost about 30 lb. He still on Daliresp that is likely contributing to that. If he co 08/28/2023 the patient is here for sick visit. He is having hard time with his breathing. The patient recently call the office with worsening risk was sent to the ER. He wants admitted on August 04 to the hospital. He had a chest x-ray demonstrating bilateral pneumonia. This is superimposed on his underlying interstitial lung disease. He was treated with prednisone addition to antibiotics subsequently discharged. He did not require oxygen upon discharge. The patient has been weaning off the prednisone down to 10 mg of prednisone having hard time with his breathing. He is then in bed now for about 3 days. His coughing has gotten worse expectorating discolored mucus. Denies any hemoptysis. In the office he does have significant wheezing chest tightness. Will go ahead and give him a couple treatments of DuoNeb. Hopefully we can improve his respiratory symptoms we can start antibiotics and give him additional Solu-Medrol and prednisone for home. If however he does not improve after the breathing treatments then will consider transferring him to the ER. 09/18/2023 the patient is here for a pulmonary follow-up visit. The patient recently was hospitalized because of the bad bronchopneumonia and asthma exacerbation. He is now recovering. He feels a little better although starting to get chest tightness again. He has been using prednisone 20 mg daily in his also been using all his respiratory medicines. He is also developing some lower extremity edema swelling redness. Is tender to the touch. It appears to be bilateral cellulitis. I did review his chest x-ray he did have run this is a week ago and compared to the x-ray he had when he was admitted to the hospital still demonstrates hazy opacities suggesting some component of pneumonitis. Therefore will increase the prednisone and also will keep him on some antibiotics to treat him for cellulitis. He will return in 3-4 weeks. If he has any worsening symptoms he will call prior to that visit. 10/07/2023 the patient is here for a pulmonary follow-up visit. The patient is feeling lot better. He is recovering now closer to his baseline. He is down to 20 mg of prednisone. He would like to come off. However, will need to very careful as we wean off slowly. Therefore will decrease by 5 mg every 7-10 days. Hopefully he can come off completely. He continues on his respiratory therapy with good effect. He also continues with CPAP using more than 4 hours a night. The CPAP therapy continues to be affecting beneficial. The lower extremity edema as a little better he continues to have some degree of erythema but it does not look infected anymore. He did complete the doxycycline. Otherwise patient is doing better so therefore we will continue his current respiratory regimen and hopefully we can wean off completely from the prednisone. Will follow-up in 4 months. 04/15/2024 the patient is here for a pulmonary follow-up visit. Overall he is doing okay. Does complaint of dyspnea on exertion. Sometimes he is so short of breath that he goes to his home in uses his oxygen via his concentrator. Which is the portability outside of the home. The patient also has been dealing with renal failure. This kidney now is back to baseline although does have some chronic renal insufficiency. The patient continues on injections, Tezspire. He gets them through his round up ring hand. He has been developing increasing infections. Therefore we will be talking to his round up ring hand regarding switching his biologic to a different regimen. I do believe does good options specially if he continues with significant COPD and wheezing symptoms. The patient did have a walking oximetry in the office and he did desaturate down to 88% with activity was visibly dyspneic and the heart rate went up to 120 beats per minute. Dyspnea score 7/10. 2 L pulse with sufficient to keep his oxygen around 94 % with activity. He already has oxygen through [employer] as the concentrator home. He will need portability. I will request a portable oxygen concentrator for him to use for better portability outside of the home. Also he will continue to use his CPAP at home. We did review his sleep study. We had requested a titration study but it looks like they just did a regular sleep. Therefore, will have him do an overnight oximetry on room air to see if he still needs the oxygen at nighttime. 07/16/2024 the patient is here for a pulmonary follow-up visit. He has been struggling now for several weeks. He has had worsening cough shortness of breath chest tightness. Moderate to severe. He has been using his nebulizer regularly 2 to 4 times a day and has been continued his other medicines. The patient did run out of his prednisone though. He was trying to wean himself off it. Right now he does have significant chest tightness and wheezing. Explained to him that he probably have to stay on a small dose of prednisone regularly to avoid his severe exacerbations. In the meantime he is using the CPAP the CPAP therapy continues to be affecting beneficial. He is using it with oxygen. Will have to do an overnight oximetry on room air to see if he does not need the oxygen any longer while sleeping. He can do that whenever he is feeling better. He continues on the biologic therapy, Tezspire. He is going to be following up soon with his round up ring hand to see if any further changes need to take place. 08/10/2024 the patient is here for pulmonary follow-up visit. Overall he is feeling a lot better. He is down to 10 mg of prednisone. He is going on a cruise next weeks. At this point will go ahead and optimize his respiratory therapy by adding Spiriva to his regimen. He also needs any nebulizer since is broken. Will send a prescription to the local [employer] company. Hopefully can get a before his trip. The patient continues to CPAP therapy. The CPAP therapy continues to be affecting beneficial he does use it for more than 4 hours. He will take the CPAP with him. He also continues on the biologic therapy, Tezspire with good results. Right now the patient continues to have a little wheezing on exam but closer to his baseline. I am hopeful that the long-acting muscarinic antagonist be helpful. Will follow-up in a couple months. After he gets back from his trip he can start decreasing the prednisone some. But hopefully will stay on small dose and try to find the lowest most effective dose. 10/21/2024 the patient is here for pulmonary follow-up visit. She is still struggling with breathing. He had to increase the prednisone to 20 mg because he was having worsening breathing. He continues on the Tezspire. He needs to follow-up with Allergy immunology to see if he has a better candidate for Dupixent. He already tried and failed Fasenra. In the meantime the patient has been using nebulized therapy with Brovana and budesonide in addition to the albuterol. The patient is still struggling even with all those breathing treatments. Will did talk about starting Ohtuvayre. This will be a better option for him to try to minimize steroid in the prednisone dose is too high for him. Ideally we can start him on the nebulized therapy and subsequently we can also transitioning to inhalers so he does not have to take some any nebulized treatments a day. He continues uses CPAP at nighttime with good effect. CPAP therapy has been affecting beneficial. He does use it for more than 4 hours a night. Although initially he did have an overnight test demonstrating he did in the oxygen but he is now waking up short of breath and felt better on the oxygen so he went back on it. He also has the oxygen portable oxygen concentrator that he uses with activity outside of the home that is also been affecting beneficial. 01/05/2025 the patient is here for pulmonary sick visit. He has been having worsening respiratory symptoms. The patient has been on 20 mg of prednisone still having hard time breathing. Very dyspneic with minimal activity. He did start the new nebulized therapy, ohtuvaye. But, has not seen any significant improvement. Try to simplify his nebulizer therapy because now he is on multiple agents. Therefore, will switch him to an inhaler such as Trelegy and therefore we can hold off on the Brovana and the budesonide and the Spiriva. In addition to that the patient will start doxycycline and will continue with the prednisone for now. He continues with the Tezspire through the allergy office. If he continues to be symptomatic we can consider bronchoscopy to assess the airways and for deep cultures. We could also consider referral to [facility] for 2nd opinion because of his significant obstructive disease refractory to an aggressive regimen of medications. 02/12/2025 the patient is here for follow-up visit. He is feeling better. He feels it is actually getting worse. He has been noticing worsening hypoxia. He does use the oxygen in the oxygen does help him although he does not have it with him right now. He continues on the prednisone 10 mg daily in his just completed a taper. He also completed a full course of doxycycline. He continues on the very aggressive respiratory regimen with minimal relief. Recently he did take part in the lung cancer screening program at [facility] where he had a CT scan demonstrating increasing tree-in-bud suggesting bronchiolitis. This may have something to do with his breathing issues the patient will be placed on azithromycin 500 mg 3 times a week in also will request a sputum for culture and also AFB. He will be following up with the lung cancer screening program at [facility] in the meantime. The patient will need additional prednisone unfortunately and we did talk about other options including theophylline with the patient is not a candidate because of his atrial fibrillation. The patient also will restart the budesonide with the idea that will help him minimize the amount of prednisone that he will need. He will follow-up closely with us. The meantime needs uses oxygen with activity to make sure that his oxygen as above 88%. He is also using the CPAP at nighttime and CPAP therapy has been affecting beneficial. [facility] Medical History Nocturnal hypoxia CHF (congestive heart failure) Chronic lung disease COPD with acute exacerbation Chronic lung disease Chronic lung disease Tubular adenoma of colon (~2005) COPD (chronic obstructive pulmonary disease) Pulmonary nodules RAYMOND on CPAP Chronic rhinitis Asthma-COPD overlap syndrome PAF (paroxysmal atrial fibrillation) (~2017) Echocardiogram abnormal Encounter for screening for lung cancer Edema leg Venous insufficiency of both lower extremities AC (acromioclavicular) joint arthritis BPH (benign prostatic hyperplasia) Seasonal allergies Hyperlipidemia Surgical History History of appendectomy History of esophagogastroduodenoscopy (EGD) History of total left hip replacement (~2019) History of repair of right rotator cuff (~2017) History of nasal septoplasty (~2008) History of colonoscopy History of cataract (~2009) Family History Father No problems noted. Mother CAD (coronary artery disease) CHF (congestive heart failure) HTN (hypertension) Brother No problems noted. Brother No problems noted. Sister No problems noted. Sister No problems noted. Sister Mental health disorder Son No problems noted. Son No problems noted. Social History Household Members: Spouse, Family and Children Housing: House Do you presently have visiting nurse or other home services: No Alcohol intake: current Alcohol intake frequency: holidays/special occasions only Patient Tobacco Use Status: Former Tobacco user Tobacco use type: Cigarette Years Smoked: 40 years e-Cigarette/Vaping Use: Former Use Second Hand Smoke Exposure: No Advance Directives Date on File: 10/10/22 service: Yes Current occupational status: retired Cognitive needs: No Hearing needs: No Vision needs: No Review of Systems Const Denies fatigue Eyes Denies change in vision ENT Reports nasal congestion, Reports nasal discharge and Denies sore throat Card Denies chest pain, Reports dyspnea and Reports dyspnea on exertion Resp Reports chest congestion, Reports cough, Denies hemoptysis, Reports dyspnea, Reports dyspnea on exertion and Reports wheezing GI Reports no additional complaints Musc Reports no additional complaints Skin/Breast Denies rash Neuro Reports no additional complaints Psych Reports no additional complaints Endo Denies fatigue and Denies heat intolerance Kelvin/Lymph Denies easy bleeding, Denies easy bruising and Denies lymphadenopathy Aller/Immun Reports wheezing Physical Exam Vital Signs: Last Vital Signs Pulse 88 02/12/25 10:17 BP 130/50 L 02/12/25 10:17 Pulse Ox 94 02/12/25 10:17 Oxygen Delivery Method Room Air 02/12/25 10:17 BMI result Body Mass Index 34.8 Const General: comfortable and alert Orientation/consciousness: patient oriented x3 Eyes Pupils: Equal, round and reactive pupils present Neck Neck: Yes normal visual inspection, Yes full ROM and Yes no lymphadenopathy Chest Chest palpation & inspection: normal inspection of the chest Resp Effort & Inspection: normal respiratory effort and prolonged expiratory phase Auscultation: wheezes and diminished lung sounds Cardio Rate: regular rate Rhythm: regular rhythm Heart sounds: S1 normal heart sound present and S2 normal heart sound present GI Palpation (GI): Soft to palpation and nontender Auscultation: normal bowel sounds General: Yes no CVA tenderness Back/Spine/Pelvis Back: no CVA tenderness Skin General skin exam: no rashes or lesions noted Neuro General: patient oriented x3 Cranial nerves: Yes Equal, round and reactive pupils present Extrem General: Yes no clubbing, cyanosis or edema Office Procedures Nebulizer Treatment Nebulizer Treatment [id number] RX initial, or Nebulizer Subsequent Treatment Office Meds methylprednisolone sod suc(PF) 125 mg/2 mL solution for injection Performing Provider: Sha Head MD Performing Location: [facility] Administered by: Qiana Valencia LPN on 02/12/25 11:50 Dose Route Admin Location Dispensed Lot Number Expiration Date [employer] 125 mg IM R buttock 1 ea [id number] 06/19/27 7253-9123-33 [employer] PHARM Total Dispensed Waste 1 ea 0 % levalbuterol HCl 1.25 mg/3 mL solution for nebulization Performing Provider: Sha Head MD Performing Location: [facility] Administered by: Qiana Valencia LPN on 02/12/25 11:50 Dose Route Admin Location Dispensed Lot Number Expiration Date [employer] 1.25 mg inhalation 3 mL [id number] 07/17/26 17703-639-49 [employer] Assessment & Plan Assessment & Plan (1) COPD (chronic obstructive pulmonary disease): Code(s): J44.9 - Chronic obstructive pulmonary disease, unspecified Category: Medical Qualifiers: COPD type: COPD with acute exacerbation Qualified Code(s): J44.1 - Chronic obstructive pulmonary disease with (acute) exacerbation (2) Asthma-COPD overlap syndrome: Code(s): J44.9 - Chronic obstructive pulmonary disease, unspecified Category: Medical (3) Pulmonary nodules: Code(s): R91.8 - Other nonspecific abnormal finding of lung field Category: Medical (4) RAYMOND on CPAP: Code(s): G47.33 - Obstructive sleep apnea (adult) (pediatric); Z99.89 - Dependence on other enabling machines and devices Category: Medical (5) Chronic rhinitis: Code(s): J31.0 - Chronic rhinitis Category: Medical (6) Nocturnal hypoxia: Code(s): G47.34 - Idiopathic sleep related nonobstructive alveolar hypoventilation Category: Medical (7) Bronchiolitis: Comment: based on LDCT from [facility] Code(s): J21.9 - Acute bronchiolitis, unspecified Category: Medical Plan continue Tezspire [id number], Will call Dr Ornelas about changing Biologic Trelegy 200 daily continue Ohtuvayre start Bactrim (no Macrolide/quanalone due to use of anti arrhythmic) Solumedrol 125mg, then prednisone taper then continue Prednisone 10mg daily start BUdesonide nebs ANN as needed continue APAP, adjusted pressures 6-12 oxygen with activity: POC 2L/min with activity. Requesting POC for better portability outside of the home sputum cx/AFB sent continue oxygen supplementation while sleeping with CPAP. F/U 2-3 weeks Orders: Orders Acid-fast Culture + Smear 02/12/25 R91.1 - Solitary pulmonary nodule Sputum Cult + Gram stain 02/12/25 R91.1 - Solitary pulmonary nodule AMB Nebulizer Treatment 02/12/25 J44.9 - Chronic obstructive pulmonary disease, unspecified AMB Methylprednisolone Sod Succ Injection 02/12/25 J44.9 - Chronic obstructive pulmonary disease, unspecified Medications: New prednisone PO daily; Take 2 tabs daily x 5 days, then 1 tablet daily x 5 days 15 tabs 0RF 10 days sulfamethoxazole-trimethoprim 800-160 mg (Bactrim DS) 1 tab PO BID 42 tabs 0RF 21 days Refilled budesonide 0.5 mg (2 mL) inhalation BID 360 mL 3RF J44.9 - Chronic obstructive pulmonary disease, unspecified levalbuterol HCl 1.25 mg (3 mL) inhalation QID 1,080 mL 3RF 90 days J44.9 - Chronic obstructive pulmonary disease, unspecified Coding Level of Care Code Est Pt Level 5 (79120) Complex EM visit Add On G2211 Diagnoses Chronic obstructive pulmonary disease with acute exacerbation J44.1 COPD type: COPD with acute exacerbation Asthma-COPD overlap syndrome J44.9 Pulmonary nodules R91.8 RAYMOND on CPAP G47.33; Z99.89 Chronic rhinitis J31.0 Nocturnal hypoxia G47.34 Bronchiolitis J21.9 CPT Codes Nebulizer Treatment - Nebulizer Treatment, initial or subsequent: [id number] RX initial, or Nebulizer Subsequent Treatment ([id number]) Time Spent (min) 45
--- OUTSIDE RECORDS SUMMARY | 2025-02-12 11:28 | XMS_ITS | Clinical Summary ---
Author Organization [facility] [address] Address [address] [place] [address] Phone Care Team Providers Care [employer] P[employer] Supervisor Name Role Phone Rahul Becerra MD Primary Care Provider [phone] Encounters Date Type Department Care Team Description 02/09/2025 Telephone Lung Screening Program - [address] [phone] Mouna Ferrell [place] 02/03/2025 10:35 AM EDT - 02/03/2025 11:59 PM EDT Hospital Encounter [facility] CT Scan [address] [place] [phone] Encounter for screening for malignant neoplasm of respiratory organs; Personal history of nicotine dependence Discharge Disposition: Home or Self Care 01/14/2025 Telephone Lung Screening Program - [address] [phone] Sona Candelario MA from Last 3 Months Medical History Medical History Date Comments RAYMOND (obstructive sleep apnea) 05/29/2017 DX :RAYMOND (obstructive sleep apnea); COMMENT: On CPAP Pneumoconiosis (CMS/HCC V24, 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 [...] on file Obstetrics History Plan of Treatment Health Maintenance Due Date Last Done Comments DTaP,Tdap,and Td Vaccines (1 - Tdap) 1974 Zoster Vaccines (1 of 2) 1974 RSV Immunization Adult Patients (1 - Risk 60-74 years 1-dose series) 2015 Pneumococcal Vaccine: 50+ Years (3 of 3 - PCV) 01/20/2022 01/20/2021, 02/12/2018 Abdominal Aortic Aneurysm (AAA) Screen 04/17/2022 Cholesterol Screening (Lipid Panel) 04/17/2022 Colorectal Cancer Screening: Colonoscopy 04/17/2022 Falls Risk Assessment 04/17/2022 Hepatitis C Screening 04/17/2022 Medicare Annual Wellness Visit 04/17/2022 Social Influencers of Health Screening 04/17/2022 Depression Screening 05/20/2024 COVID-19 Vaccine (6 - Pfizer risk 2023- season) 2025 05/18/2024, 10/25/2021, 06/08/2021, Additional history exists Influenza Vaccine (#1) 2025 , 05/06/2023, 05/21/2021, Additional history exists HIB Vaccines Aged Out No longer eligi [...] to complete this topic RSV Immunization Patients Under 20 months Aged Out No longer eligible based on patient's age to complete this topic Varicella Vaccines Aged Out No longer eligible based on patient's age to complete this topic Procedures Procedure Name Priority Date/Time Associated Diagnosis Comments CT LUNG SCREENING Routine 02/03/2025 11: 04 AM EDT Encounter for screening for malignant neoplasm of respiratory organs Personal history of nicotine dependence from Last 3 Months Results * CT Lung Screening (02/03/2025 11:04 AM EDT) Anatomical Region Laterality Modality Chest Computed Tomogra phy 02/09/2025 4:06 AM EDT Impressions 02/09/2025 4:20 AM EDT New 4 mm nodule/opacity in the right upper lobe with increasing tree-in-bud/centrilobular nodules in the right upper lobe measuring up to 8 mm, right middle lobe, right lower lobe and lingula. Findings suggestive of an inflammatory or infectious process. Lung RADS 0: Incomplete. Findings suggestive of an inflammatory or infectious process.1-3 month LDCT -------- FINAL REPORT -------- Dictated By: Flaquita Eastman Dictated Date: 02/09/2025 04:06 ET Assigned Physician: Flaquita Eastman Reviewed and Electronically Signed By: Flaquita Eastman Signed Date: 02/09/2025 04:20 ET Workstation ID: [id number] Transcribed By: Self Edit Transcribed Date: 02/09/2025 04:06 ET Narrative 02/09/2025 4:20 AM EDT Indication: Greater than 20 total pack-year smoking history, asymptomatic former smoker Technique: Low-dose CT scan of the chest obtained as a lung cancer screening study. Multiplanar reformatted images were obtained. Dose reduction technique: ASIR (Adaptive statistical iterative reconstruction) and/or AEC (automated exposure control) DLP: 185.47 mGy-cm COMPARISON: January 2024. January 2022. FINDINGS: Lack of intravenous contrast limits evaluation of the orquidea, vascular structures and visualized abdominal viscera. Lungs/airways: Trachea and central airways are patent. Emphysematous changes with increased subpleural reticularity in keeping with pulmonary fibrosis. Scattered sub-5 mm pulmonary nodules, similar to prior. 7 mm juxtapleural nodule in the left lung apex (series 3, image 37), similar dating back to January 2022 New 4 mm nodule/opacity in the right upper lobe (series 3, image 80). Scattered tree-in-bud/centrilobular nodules in the right upper lobe peripherally, increased from January 2024 with a dominant 8 mm nodule/opacity in the right upper lobe (series 3, image 105). Tree-in-bud/centrilobular nodules in the right middle lobe and lower lobes as well as the lingula appears slightly progressed from January 2024. Base of the neck, mediastinum, heart, chest wall, vessels: The assessment of hilar lymphadenopathy is difficult without the use of IV contrast. No enlarged mediastinal lymph nodes. Coronary artery calcifications. Upper abdomen: This study was performed without contrast and with lower than standard dose. These factors reduce the sensitivity for detection of small lesions in the upper abdomen. Cholelithiasis. Bones/soft tissues: Degenerative changes Oumar Damon MD IMG CT PROCEDURES Final Result from Last 3 Months Insurance MEDICARE [employer] Care Teams [employer] P[employer] Supervisor Relationship Specialty Start Date End Date Rahul Becerra MD [address] [place] [address] [address] ARIANNE Payne PCP - General Internal Medicine 03/18/17
--- OUTSIDE RECORDS SUMMARY | 2025-02-12 11:28 | XMS_ITS | Encounter Summary ---
Author Organization [facility] [place] [address] Care Team Providers Care Assistant Basketball Coach Name Role Phone Rahul Becerra MD Primary Care Provider Reason for Visit * Reason Onset Date Comments Results 02/09/2025 Annual Screening - LR0 Encounter Details Date Type Department Care Team ([facility] st Contact Info) Description 02/09/2025 Telephone Lung Screening Program - [address] [place] [phone] Mouna Ferrell MA Social History Tobacco Use Types Packs/Day [...] as of this encounter Progress Notes * CALI Hernandez - 02/09/2025 1:03 PM EDT Agree with lung rads 0 ok for 3 m F/U * Mouna Ferrell MA - 02/09/2025 9:32 AM EDT Kiran Dela Cruz: had their LDCT Screening for Lung Cancer on 02/03/2025 at [facility]. The radiologist interpreted this as a Lung RADS 0 and therefore requires additional review for recommendations for their next screening. Following this screening, I reached out to the patient to determine if they are experiencing any signs or symptoms that could be related to an infectious or inflammatory process. The patient denies having received treatment for a respiratory infection in the last 8 weeks. They deny experiencing anyrespiratory symptoms such as runny nose, congestion, fever, muscle aches, scratchy/sore throat, postnasal drip, throat clearing, cough, wheezing or increased shortness of breath. Patient states he has/had no cold symptoms. Please review this CT along with the clinical information. Let us know when we should schedule the patient's next Lung Cancer Screening and whether their incidental finding requires any additional communication or instructions. Thank you. documented in this encounter Plan of Treatment Not on file documented as of this encounter Visit Diagnoses Not on filedocumented in this encounter Care Teams Assistant Basketball Coach Relationship Specialty Start Date End Date Rahul Becerra MD [address] [place] [address] Dr [address] ARIANNE Payne PCP - General Internal Medicine 03/18/17 documented as of this encounter
== END 2025-02-12 11:16 | disposition home or self-care (01) ==
LOC: HO.HPS 10:14
PROVIDERS: PCP Family Medicine; Visit Provider Hospitalist
DX: J44.9 Chronic obstructive pulmonary disease, unspecified (principal)

== ENCOUNTER 2025-03-12 09:26 | Outpatient (AMB) | payer MEDICARE, OTHER, SELFPAY ==
[2025-03-12 09:30] VITALS: BP 146/52; PULSE 69; O2SAT 95; BMI 34.3
--- NOTE | 2025-03-12 09:30 | A.OFFVIS_ITS ---
Vital Signs 03/12/25 09:30 Height 5 ft 9 in Weight 232 lb 9.403 oz BMI 34.3 BP 146/52 H Blood Pressure Location Lt brachial Position Sitting Pulse 69 Pulse Source Pulse Oximeter Pulse Oximetry (%) 95 Oxygen Delivery Method Room Air Intake Visit Reasons: Obstructive sleep apnea Splunk Developer Required: No Accompanied by: Self / Same As Patient Allergies watermelon (WATERMELON) Allergy (Severe, Verified 03/12/25 09:33) ANAPHYLAXIS Iodinated Contrast Media (IV CONTRAST) Allergy (Intermediate, Verified 03/12/25 09:33) LIGHT HEADED AND SHORTNESS OF BREATH HPI Comments Details: Patient is a 69 y/o man with history of underlying pulmonary nodules, RAYMOND on CPAP, asthma COPD overlap syndrome, tracheobronchomalacia in addition to hypersensitivity pneumonitis due to multiple exposures especially at while he was working. He has been using CPAP therapy the CPAP therapy has been very affecting beneficial. The CPAP therapy he uses every night for more than 4 hours. Recently he did have a CT scan of his chest for the lung cancer screening program and is nodular densities have resolved which is very reassuring. He is scheduled for the CT scan in a year's time. I am hopeful that we can decrease the amount of Xopenex that he is using and then hopefully decrease the amount of budesonide that he is using. His CPAP therapy has been affecting beneficial. He has been getting supplies through [facility] now regularly. His CPAP therapy he does use for more than 4 hours a night. He has lost about 30 lb. He still on Daliresp that is likely contributing to that. If he co 08/28/2023 the patient is here for sick visit. He is having hard time with his breathing. The patient recently call the office with worsening risk was sent to the ER. He wants admitted on August 04 to the hospital. He had a chest x-ray demonstrating bilateral pneumonia. This is superimposed on his underlying interstitial lung disease. He was treated with prednisone addition to antibiotics subsequently discharged. He did not require oxygen upon discharge. The patient has been weaning off the prednisone down to 10 mg of prednisone having hard time with his breathing. He is then in bed now for about 3 days. His coughing has gotten worse expectorating discolored mucus. Denies any hemoptysis. In the office he does have significant wheezing chest tightness. Will go ahead and give him a couple treatments of DuoNeb. Hopefully we can improve his respiratory symptoms we can start antibiotics and give him additional Solu-Medrol and prednisone for home. If however he does not improve after the breathing treatments then will consider transferring him to the ER. 09/18/2023 the patient is here for a pulmonary follow-up visit. The patient recently was hospitalized because of the bad bronchopneumonia and asthma exacerbation. He is now recovering. He feels a little better although starting to get chest tightness again. He has been using prednisone 20 mg daily in his also been using all his respiratory medicines. He is also developing some lower extremity edema swelling redness. Is tender to the touch. It appears to be bilateral cellulitis. I did review his chest x-ray he did have run this is a week ago and compared to the x-ray he had when he was admitted to the hospital still demonstrates hazy opacities suggesting some component of pneumonitis. Therefore will increase the prednisone and also will keep him on some antibiotics to treat him for cellulitis. He will return in 3-4 weeks. If he has any worsening symptoms he will call prior to that visit. 10/07/2023 the patient is here for a pulmonary follow-up visit. The patient is feeling lot better. He is recovering now closer to his baseline. He is down to 20 mg of prednisone. He would like to come off. However, will need to very careful as we wean off slowly. Therefore will decrease by 5 mg every 7-10 days. Hopefully he can come off completely. He continues on his respiratory therapy with good effect. He also continues with CPAP using more than 4 hours a night. The CPAP therapy continues to be affecting beneficial. The lower extremity edema as a little better he continues to have some degree of erythema but it does not look infected anymore. He did complete the doxycycline. Otherwise patient is doing better so therefore we will continue his current respiratory regimen and hopefully we can wean off completely from the prednisone. Will follow-up in 4 months. 04/15/2024 the patient is here for a pulmonary follow-up visit. Overall he is doing okay. Does complaint of dyspnea on exertion. Sometimes he is so short of breath that he goes to his home in uses his oxygen via his concentrator. Which is the portability outside of the home. The patient also has been dealing with renal failure. This kidney now is back to baseline although does have some chronic renal insufficiency. The patient continues on injections, Tezspire. He gets them through his digital product manager. He has been developing increasing infections. Therefore we will be talking to his digital product manager regarding switching his biologic to a different regimen. I do believe does good options specially if he continues with significant COPD and wheezing symptoms. The patient did have a walking oximetry in the office and he did desaturate down to 88% with activity was visibly dyspneic and the heart rate went up to 120 beats per minute. Dyspnea score 7/10. 2 L pulse with sufficient to keep his oxygen around 94 % with activity. He already has oxygen through [employer] as the concentrator home. He will need portability. I will request a portable oxygen concentrator for him to use for better portability outside of the home. Also he will continue to use his CPAP at home. We did review his sleep study. We had requested a titration study but it looks like they just did a regular sleep. Therefore, will have him do an overnight oximetry on room air to see if he still needs the oxygen at nighttime. 07/16/2024 the patient is here for a pulmonary follow-up visit. He has been struggling now for several weeks. He has had worsening cough shortness of breath chest tightness. Moderate to severe. He has been using his nebulizer regularly 2 to 4 times a day and has been continued his other medicines. The patient did run out of his prednisone though. He was trying to wean himself off it. Right now he does have significant chest tightness and wheezing. Explained to him that he probably have to stay on a small dose of prednisone regularly to avoid his severe exacerbations. In the meantime he is using the CPAP the CPAP therapy continues to be affecting beneficial. He is using it with oxygen. Will have to do an overnight oximetry on room air to see if he does not need the oxygen any longer while sleeping. He can do that whenever he is feeling better. He continues on the biologic therapy, Tezspire. He is going to be following up soon with his digital product manager to see if any further changes need to take place. 08/10/2024 the patient is here for pulmonary follow-up visit. Overall he is feeling a lot better. He is down to 10 mg of prednisone. He is going on a cruise next weeks. At this point will go ahead and optimize his respiratory therapy by adding Spiriva to his regimen. He also needs any nebulizer since is broken. Will send a prescription to the local [employer] company. Hopefully can get a before his trip. The patient continues to CPAP therapy. The CPAP therapy continues to be affecting beneficial he does use it for more than 4 hours. He will take the CPAP with him. He also continues on the biologic therapy, Tezspire with good results. Right now the patient continues to have a little wh eezing on exam but closer to his baseline. I am hopeful that the long-acting muscarinic antagonist be helpful. Will follow-up in a couple months. After he gets back from his trip he can start decreasing the prednisone some. But hopefully will stay on small dose and try to find the lowest most effective dose. 10/21/2024 the patient is here for pulmonary follow-up visit. She is still struggling with breathing. He had to increase the prednisone to 20 mg because he was having worsening breathing. He continues on the Tezspire. He needs to follow-up with Allergy immunology to see if he has a better candidate for Dupixent. He already tried and failed Fasenra. In the meantime the patient has been using nebulized therapy with Brovana and budesonide in addition to the albuterol. The patient is still struggling even with all those breathing treatments. Will did talk about starting Ohtuvayre. This will be a better option for him to try to minimize steroid in the prednisone dose is too high for him. Ideally we can start him on the nebulized therapy and subsequently we can also transitioning to inhalers so he does not have to take some any nebulized treatments a day. He continues uses CPAP at nighttime with good effect. CPAP therapy has been affecting beneficial. He does use it for more than 4 hours a night. Although initially he did have an overnight test demonstrating he did in the oxygen but he is now waking up short of breath and felt better on the oxygen so he went back on it. He also has the oxygen portable oxygen concentrator that he uses with activity outside of the home that is also been affecting beneficial. 01/05/2025 the patient is here for pulmonary sick visit. He has been having worsening respiratory symptoms. The patient has been on 20 mg of prednisone still having hard time breathing. Very dyspneic with minimal activity. He did start the new nebulized therapy, ohtuvaye. But, has not seen any significant improvement. Try to simplify his nebulizer therapy because now he is on multiple agents. Therefore, will switch him to an inhaler such as Trelegy and therefore we can hold off on the Brovana and the budesonide and the Spiriva. In addition to that the patient will start doxycycline and will continue with the prednisone for now. He continues with the Tezspire through the allergy office. If he continues to be symptomatic we can consider bronchoscopy to assess the airways and for deep cultures. We could also consider referral to [place] for 2nd opinion because of his significant obstructive disease refractory to an aggressive regimen of medications. 02/12/2025 the patient is here for follow-up visit. He is feeling better. He feels it is actually getting worse. He has been noticing worsening hypoxia. He does use the oxygen in the oxygen does help him although he does not have it with him right now. He continues on the prednisone 10 mg daily in his just completed a taper. He also completed a full course of doxycycline. He continues on the very aggressive respiratory regimen with minimal relief. Recently he did take part in the lung cancer screening program at [facility] where he had a CT scan demonstrating increasing tree-in-bud suggesting bronchiolitis. This may have something to do with his breathing issues the patient will be placed on azithromycin 500 mg 3 times a week in also will request a sputum for culture and also AFB. He will be following up with the lung cancer screening program at [facility] in the meantime. The patient will need additional prednisone unfortunately and we did talk about other options including theophylline with the patient is not a candidate because of his atrial fibrillation. The patient also will restart the budesonide with the idea that will help him minimize the amount of prednisone that he will need. He will follow-up closely with us. The meantime needs uses oxygen with activity to make sure that his oxygen as above 88%. He is also using the CPAP at nighttime and CPAP therapy has been affecting beneficial. 03/12/2025 the patient is here for pulmonary follow-up visit. He is feeling a little bit better. Last time he required lot of Solu-Medrol and also prednisone taper. He is down to 10 mg of baseline prednisone. He continues on the test prior the question is if it is really working for him. But he continues to be significantly wheezy so it is not time to stop the medicine. The patient does have a history AFib and he is on antiarrhythmic. Will try small dose of theophylline to see if we can have him tolerated without adverse effects. Will monitor closely his levels. The patient will continue his current respiratory therapy with history nebulizer medicines and continues on the Trelegy. The patient overall is doing well. He will follow-up in a couple months. If he has any issues prior to the 2nd always call for an earlier assessment. Also to note the patient did have a CT scan through the lung cancer screening program at [facility]. It was considered a rods 0 because he has multiple new nodules. Largest nodule measuring 8 mm in size. He is scheduled to undergo a repeat CAT scan 3 months from the last which will be in a couple months. [facility] Medical History Nocturnal hypoxia CHF (congestive heart failure) Chronic lung disease COPD with acute exacerbation Chronic lung disease Chronic lung disease Tubular adenoma of colon (~2005) COPD (chronic obstructive pulmonary disease) Pulmonary nodules RAYMOND on CPAP Chronic rhinitis Asthma-COPD overlap syndrome PAF (paroxysmal atrial fibrillation) (~2017) Echocardiogram abnormal Encounter for screening for lung cancer Edema leg Venous insufficiency of both lower extremities AC (acromioclavicular) joint arthritis BPH (benign prostatic hyperplasia) Seasonal allergies Hyperlipidemia Surgical History History of appendectomy History of esophagogastroduodenoscopy (EGD) History of total left hip replacement (~2019) History of repair of right rotator cuff (~2017) History of nasal septoplasty (~2008) History of colonoscopy History of cataract (~2009) Family History Father No problems noted. Mother CAD (coronary artery disease) CHF (congestive heart failure) HTN (hypertension) Brother No problems noted. Brother No problems noted. Sister No problems noted. Sister No problems noted. Sister Mental health disorder Son No problems noted. Son No problems noted. Social History Household Members: Spouse, Family and Children Housing: House Do you presently have visiting nurse or other home services: No Alcohol intake: current Alcohol intake frequency: holidays/special occasions only Patient Tobacco Use Status: Former Tobacco user Tobacco use type: Cigarette Years Smoked: 40 years e-Cigarette/Vaping Use: Former Use Second Hand Smoke Exposure: No Advance Directives Date on File: 10/10/22 service: Yes Current occupational status: retired Cognitive needs: No Hearing needs: No Vision needs: No Review of Systems Const Denies fatigue Eyes Denies change in vision ENT Reports nasal congestion, Reports nasal discharge and Denies sore throat Card Denies chest pain, Reports dyspnea and Reports dyspnea on exertion Resp Reports chest congestion, Reports cough, Denies hemoptysis, Reports dyspnea, Reports dyspnea on exertion and Reports wheezing GI Reports no additional complaints Musc Reports no additional complaints Skin/Breast Denies rash Neuro Reports no additional complaints Psych Reports no additional complaints Endo Denies fatigue and Denies heat intolerance Kelvin/Lymph Denies easy bleeding, Denies easy bruising and Denies lymphadenopathy Aller/Immun Reports wheezing Physical Exam Vital Signs: Last Vital Signs Pulse 69 03/12/25 09:30 BP 146/52 H 03/12/25 09:30 Pulse Ox 95 03/12/25 09:30 Oxygen Delivery Method Room Air 03/12/25 09:30 BMI result Body Mass Index 34.3 Const General: comfortable and alert Orientation/consciousness: patient oriented x3 Eyes Pupils: Equal, round and reactive pupils present Neck Neck: Yes normal visual inspection, Yes full ROM and Yes no lymphadenopathy Chest Chest palpation & inspection: normal inspection of the chest Resp Effort & Inspection: normal respiratory effort and prolonged expiratory phase Auscultation: wheezes and diminished lung sounds Cardio Rate: regular rate Rhythm: regular rhythm Heart sounds: S1 normal heart sound present and S2 normal heart sound present GI Palpation (GI): Soft to palpation and nontender Auscultation: normal bowel sounds General: Yes no CVA tenderness Back/Spine/Pelvis Back: no CVA tenderness Skin General skin exam: no rashes or lesions noted Neuro General: patient oriented x3 Cranial nerves: Yes Equal, round and reactive pupils present Extrem General: Yes no clubbing, cyanosis or edema Assessment & Plan Assessment & Plan (1) COPD (chronic obstructive pulmonary disease): Code(s): J44.9 - Chronic obstructive pulmonary disease, unspecified Category: Medical Qualifiers: COPD type: chronic bronchitis (2) Asthma-COPD overlap syndrome: Code(s): J44.9 - Chronic obstructive pulmonary disease, unspecified Category: Medical (3) Pulmonary nodules: Code(s): R91.8 - Other nonspecific abnormal finding of lung field Category: Medical (4) RAYMOND on CPAP: Code(s): G47.33 - Obstructive sleep apnea (adult) (pediatric); Z99.89 - Dependence on other enabling machines and devices Category: Medical (5) Chronic rhinitis: Code(s): J31.0 - Chronic rhinitis Category: Medical (6) Nocturnal hypoxia: Code(s): G47.34 - Idiopathic sleep related nonobstructive alveolar hypoventilation Category: Medical (7) Bronchiolitis: Comment: based on LDCT from [facility] Code(s): J21.9 - Acute bronchiolitis, unspecified Category: Medical Plan continue Tezspire w1oplox, Will call Dr Ornelas about changing Biologic start Theophylline 200mg, pt will monitor HR Trelegy 200 daily continue Ohtuvayre complete Bactrim (no Macrolide/quanalone due to use of anti arrhythmic) continue Budesonide nebs ANN as needed continue APAP, adjusted pressures 6-12 oxygen with activity: POC 2L/min with activity. Requesting POC for better portability outside of the home continue oxygen supplementation while sleeping with CPAP. LDCT in 2 months F/U 2 months Medications: New theophylline ER 200 mg PO DAILY 30 caps 10RF Changed From budesonide 0.5 mg (2 mL) inhalation BID 360 mL 3RF J44.9 - Chronic obstructive pulmonary disease, unspecified To budesonide 0.5 mg (2 mL) inhalation BID 360 mL 11RF 90 days J44.9 - Chronic obstructive pulmonary disease, unspecified From gaygopnevaf-vzigohvwu-xnlsuszi 200-62.5-25 mcg (Trelegy Ellipta) 1 inh inhalation DAILY 30 days 60 ea 12RF To niaqdfsxwum-yhvblctaw-vpfhqkgy 200-62.5-25 mcg (Trelegy Ellipta) 1 inh inhalation DAILY 3 ea 3RF 90 days Coding Level of Care Code Est Pt Level 5 (39574) Complex EM visit Add On G2211 Diagnoses COPD (chronic obstructive pulmonary disease) J44.9 COPD type: chronic bronchitis Asthma-COPD overlap syndrome J44.9 Pulmonary nodules R91.8 RAYMOND on CPAP G47.33; Z99.89 Chronic rhinitis J31.0 Nocturnal hypoxia G47.34 Bronchiolitis J21.9 Time Spent (min) 45
--- OUTSIDE RECORDS SUMMARY | 2025-03-12 10:21 | XMS_ITS | Clinical Summary ---
Author Organization [facility] [address] [facility] Address [address] [place] [address] Phone Care Team Providers Care Internal Controls Manager Name Role Phone Rahul Becerra MD Primary Care Provider [phone] Encounters Date Type Department Care Team Description 02/09/2025 Telephone Lung Screening Program - [address] [phone] Mouna Ferrell [place] 02/03/2025 10:35 AM EDT - 02/03/2025 11:59 PM EDT Hospital Encounter [facility] CT Scan [address] [place] [phone] Encounter for screening for malignant neoplasm of respiratory organs; Personal history of nicotine dependence Discharge Disposition: Home or Self Care 01/14/2025 Telephone Lung Screening Program - [address] [phone] Sona Candelario [place] from Last 3 Months [...] Care Team (Late st Contact Info) Description 04/28/2025 3:30 PM EST Appointment [facility] CT Scan [address] [place] [address] Health Maintenance Due Date Last Done Comments Colorectal Cancer Screening: Colonoscopy 1955 DTaP,Tdap,and Td Vaccines (1 - Tdap) 1974 Zoster Vaccines (1 of 2) 1974 RSV Immunization Adult Patients (1 - Risk 50-74 years 1-dose series) 2005 Pneumococcal Vaccine: 50+ Years (3 of 3 - PCV) 01/20/2022 01/20/2021, 02/12/2018 Abdominal Aortic Aneurysm (AAA) Screen 04/17/2022 Cholesterol Screening (Lipid Panel) 04/17/2022 Falls Risk Assessment 04/17/2022 Hepatitis C [...] Signed Date: 02/09/2025 04:20 ET Workstation ID: [id number] Transcribed By: Self Edit Transcribed Date: 02/09/2025 [...] Result from Last 3 Months Insurance MEDICARE [facility] Care Teams Internal Controls Manager Relationship Specialty Start Date End Date Rahul Becerra MD [address] [place] [address] [address] ARIANNE Payne PCP - General Internal Medicine 03/18/17
== END 2025-03-12 09:54 | disposition home or self-care (01) ==
LOC: HO.HPS 09:27
PROVIDERS: PCP Family Medicine; Visit Provider Hospitalist
DX: J44.9 Chronic obstructive pulmonary disease, unspecified (principal); R91.8 Other nonspecific abnormal finding of lung field; G47.33 Obstructive sleep apnea (adult) (pediatric); Z99.89 Dependence on other enabling machines and devices; J31.0 Chronic rhinitis; G47.34 Idiopathic sleep related nonobstructive alveolar hypoventilation; J21.9 Acute bronchiolitis, unspecified
CPT/HCPCS: 99215; G2211

== ENCOUNTER → 2025-03-12 09:26 | Outpatient (BNVA) | payer MEDICARE, OTHER, SELFPAY | PROVIDERS: PCP Family Medicine; Visit Provider Hospitalist | DX: J44.9 Chronic obstructive pulmonary disease, unspecified (principal); G47.33 Obstructive sleep apnea (adult) (pediatric); Z99.89 Dependence on other enabling machines and devices; R91.8 Other nonspecific abnormal finding of lung field; Z87.891 Personal history of nicotine dependence; J44.89 Other specified chronic obstructive pulmonary disease; G47.34 Idiopathic sleep related nonobstructive alveolar hypoventilation | CPT/HCPCS: 99212 ==

== ENCOUNTER 2025-04-01 09:12 | Outpatient (REF) | payer MEDICARE, OTHER, SELFPAY ==
--- NOTE | ~2025-04-01 | US_ITS ---
CLINICAL HISTORY: I65.23 - Occlusion and stenosis of bilateral carotid arteries US Bilateral Carotid Duplex Comparison: None provided Findings: No significant plaque within the common carotid arteries. No significant plaque within the carotid bulbs. Normal color doppler and waveforms morphology. Peak systolic velocities: Right CCA: 136 cm/s. Right ICA: 132 cm/s. ICA/CCA ratio: 1.0. Right ECA: 141 cm/second. Right vertebral artery flow antegrade. Left CCA: 256 cm/s. Left ICA: 93 cm/s. ICA/CCA ratio: 0.4. Left ECA: 84 cm/second. Left vertebral artery flow antegrade. 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 This document has been electronically signed by: Mitul Pappas MD on 04/02/2025 11:43:11
--- OUTSIDE RECORDS SUMMARY | 2025-04-01 10:22 | XMS_ITS | Clinical Summary ---
Author Organization [facility] [address] [facility] Address [address] [place] [address] Phone Care Team Providers Care Recycling Or Rubbish Collector Name Role Phone Rahul Becerra MD Primary Care Provider [phone] Encounters Date Type Department Care Team Description 02/09/2025 Telephone Lung Screening Program - [address] [phone] Mouna Ferrell [place] 02/03/2025 10:35 AM EDT - 02/03/2025 11:59 PM EDT Hospital Encounter [facility] CT Scan [address] [place] [phone] Encounter for screening for malignant neoplasm of respiratory organs; Personal history of nicotine dependence Discharge Disposition: Home or Self Care 01/14/2025 Telephone Lung Screening Program - [address] [phone] Sona Candelario [place] from Last 3 Months [...] Info) Description 04/28/2025 3:30 PM EST Appointment [facility] CT Scan [address] [place] [phone] Health Maintenance Due Date Last [...] Screening 04/17/2022 Depression Screening 05/20/2024 COVID-19 Vaccine ( season) 2025 05/18/2024, 10/25/2021, 06/08/2021, Additional history [...] Signed Date: 02/09/2025 04:20 ET Workstation ID: [id number] Transcribed By: Self Edit Transcribed Date: 02/09/2025 [...] Bones/soft tissues: Degenerative changes Oumar Damon MD IM CT PROCEDURES Final Result from Last 3 Months Insurance [facility]ICARE [facility] Care Teams Recycling Or Rubbish Collector Relationship Specialty Start Date End Date Rahul Becerra MD [address] [place] [address] [address] ARIANNE Payne PCP - General Internal Medicine 03/18/17
== END 2025-04-01 09:13 | disposition home or self-care (01) ==
LOC: HO.HMGCX 09:12
PROVIDERS: PCP Family Medicine; Visit Provider Surgery Vascular Surgery
DX: I65.23 Occlusion and stenosis of bilateral carotid arteries (principal)
CPT/HCPCS: 93880

== ENCOUNTER → 2025-04-01 09:20 | Outpatient (BNV) | payer MEDICARE, OTHER, SELFPAY | PROVIDERS: PCP Family Medicine; Visit Provider Specialist | DX: I65.23 Occlusion and stenosis of bilateral carotid arteries (principal) | CPT/HCPCS: 93880 ==

== ENCOUNTER 2025-04-02 08:38 | Outpatient (AMB) | payer MEDICARE, OTHER, SELFPAY ==
--- OUTSIDE RECORDS SUMMARY | 2025-04-02 08:55 | XMS_ITS | Clinical Summary ---
Author Organization [facility] [address] [facility] Address [address] [place] [address] Phone Care Team Providers Care Pool Servicer Name Role Phone Rahul Becerra MD Primary Care Provider [phone] Encounters Date Type Department Care Team Description 02/09/2025 Telephone Lung Screening Program - [address] [phone] Mouna Ferrell [place] 02/03/2025 10:35 AM EDT - 02/03/2025 11:59 PM EDT Hospital Encounter [facility] CT Scan [address] [place] [phone] Encounter for screening for malignant neoplasm of respiratory organs; Personal history of nicotine dependence Discharge Disposition: Home or Self Care 01/14/2025 Telephone Lung Screening Program - [address] [phone] Sona Candelario MA from Last 3 Months [...] Info) Description 04/28/2025 3:30 PM EST Appointment [facility] CT Scan [address] [place] [address] Health Maintenance Due Date Last [...] Signed Date: 02/09/2025 04:20 ET Workstation ID: [id number] Transcribed By: Self Edit Transcribed Date: 02/09/2025 [...] Result from Last [address] [facility] Care Teams Pool Servicer Relationship Specialty Start Date End Date Rahul Becerra MD [address] [place] [address] [address] ARIANNE Payne PCP - General Internal Medicine 03/18/17
--- NOTE | 2025-04-02 09:09 | A.OFFVIS_ITS ---
Vital Signs 04/02/25 09:11 Height 5 ft 9 in Weight 237 lb 3.478 oz BMI 35.0 BP 130/60 Blood Pressure Location Lt brachial Position Sitting Pulse 70 Pulse Source Monitor Intake Visit Reasons: 4-5m follow up (KM) Intake Note: 4-5mth f/up km Corn Press Operator Required: No Accompanied by: Self / Same As Patient Allergies watermelon (WATERMELON) Allergy (Severe, Verified 03/12/25 09:33) ANAPHYLAXIS Iodinated Contrast Media (IV CONTRAST) Allergy (Intermediate, Verified 03/12/25 09:33) LIGHT HEADED AND SHORTNESS OF BREATH Medication List - Last Reconciled 04/02/25 by IMELDA [place] albuterol sulfate 90 mcg/actuation 2 puffs inhalation QID PRN apixaban (Eliquis) 5 mg PO BID arformoterol (Brovana) 15 mcg (2 mL) inhalation BID atorvastatin 80 mg PO DAILY blood pressure monitor Automatic, Digital. Dx: I10. Daily As directed, 999 days/lifetime budesonide 0.5 mg (2 mL) inhalation BID 90 days bupropion HCl 150 mg (2 x 75 mg) PO BID 90 days CPAP (CPAP Machine/Device) As directed doxycycline monohydrate 100 mg PO DAILY 28 days dronedarone (Multaq) 400 mg PO BID eerhfnlaijp-kevzgfpas-ffpziqim 200-62.5-25 mcg (Trelegy Ellipta) 1 inh inhalation DAILY 90 days furosemide 40 mg PO Q OTHER DAY levalbuterol HCl 1.25 mg (3 mL) inhalation QID 90 days losartan 37.5 mg (1.5 x 25 mg) PO DAILY 90 days metolazone 2.5 mg PO .1x week metoprolol succinate ER 100 mg PO DAILY montelukast 10 mg PO DAILY nebulizers As directed Oxygen Home Use As directed prednisone PO daily; Take 2 tabs daily x 5 days, then 1 tablet daily x 5 days 10 days roflumilast 500 mcg PO DAILY tamsulosin (Flomax) 0.4 mg PO BID 90 days tezepelumab-ekko (Tezspire) 210 mg subcut Q4W theophylline ER 200 mg PO DAILY tiotropium bromide 2.5 mcg/actuation (Spiriva Respimat) 2 puffs inhalation DAILY 30 days HPI HPI 4-5m follow up (KM): Details: The patient is a 69-year-old male presenting for follow-up of paroxysmal atrial fibrillation that is treated with rhythm control using Multaq and metoprolol. He is on Xarelto for anticoagulation.. He has hyperlipidemia., sleep apnea managed with CPAP and COPD/ asthma overlap syndrome, diastolic CHF and mild aortic stenosis.. He reports chronic shortness of breath with exertional activities. He follows closely with pulmonology. He is denying chest discomfort, heart palpitations, lightheadedness. He does have chronic mild lower leg edema which has not changed recently. He reports compliance with all his medications and denies any bleeding issues. [facility] Medical History Nocturnal hypoxia CHF (congestive heart failure) Chronic lung disease COPD with acute exacerbation Chronic lung disease Chronic lung disease Tubular adenoma of colon (~2005) COPD (chronic obstructive pulmonary disease) Pulmonary nodules RAYMOND on CPAP Chronic rhinitis Asthma-COPD overlap syndrome PAF (paroxysmal atrial fibrillation) (~2017) Echocardiogram abnormal Encounter for screening for lung cancer Edema leg Venous insufficiency of both lower extremities AC (acromioclavicular) joint arthritis BPH (benign prostatic hyperplasia) Seasonal allergies Hyperlipidemia Surgical History History of appendectomy History of esophagogastroduodenoscopy (EGD) History of total left hip replacement (~2019) History of repair of right rotator cuff (~2017) History of nasal septoplasty (~2008) History of colonoscopy History of cataract (~2009) Family History Father No problems noted. Mother CAD (coronary artery disease) CHF (congestive heart failure) HTN (hypertension) Brother No problems noted. Brother No problems noted. Sister No problems noted. Sister No problems noted. Sister Mental health disorder Son No problems noted. Son No problems noted. Social History Household Members: Spouse, Family and Children Housing: House Do you presently have visiting nurse or other home services: No Alcohol intake: current Alcohol intake frequency: holidays/special occasions only Patient Tobacco Use Status: Former Tobacco user Tobacco use type: Cigarette Years Smoked: 40 years e-Cigarette/Vaping Use: Former Use Second Hand Smoke Exposure: No Advance Directives Date on File: 10/10/22 service: Yes Current occupational status: retired Cognitive needs: No Hearing needs: No Vision needs: No Review of Systems Const All systems reviewed & are unremarkable except as noted in HPI and below Denies chills, Denies fatigue, Denies fever(s), Denies frequent falls, Denies weakness, Denies weight gain and Denies weight loss ENT Denies dizziness Card Denies chest pain, Reports leg edema, Denies lightheadedness, Denies palpitations, Reports dyspnea and Reports dyspnea on exertion Resp Denies cough, Reports dyspnea and Reports dyspnea on exertion GI Denies hematochezia Musc Denies abnormal gait, Denies muscle weakness, Denies numbness, Denies radiating pain into limb and Denies tingling Neuro Denies abnormal gait, Denies dizziness, Denies frequent falls, Denies numbness, Denies tingling and Denies weakness Endo Denies fatigue and Denies palpitations Physical Exam Vital Signs: Last Vital Signs Pulse 70 04/02/25 09:11 BP 130/60 04/02/25 09:11 BMI result Body Mass Index 35.0 Const General: cooperative, healthy appearing, comfortable and no acute distress Orientation/consciousness: patient oriented x3 Neck Neck: Yes normal visual inspection Resp Effort & Inspection: normal respiratory effort Auscultation: clear to auscultation bilaterally, no crackles, no rales, no rhonchi and no wheezes Cardio Rate: regular rate Rhythm: regular rhythm Heart sounds: S1 normal heart sound present, S2 normal heart sound present, no gallops, no murmurs and no rubs Neuro General: patient oriented x3 Extrem General: Yes normal to inspection and No no pedal edema Psych Appearance: grossly normal Mental Status: mental status grossly normal Speech and movement: Normal speech and movement present Office Procedures EKG Details: Today, read by me, sinus rhythm with first-degree AV block, rate 70, QTC 395 milliseconds [id number], Complete Assessment & Plan Assessment & Plan (1) PAF (paroxysmal atrial fibrillation): Onset Date: ~2017 Code(s): I48.0 - Paroxysmal atrial fibrillation Category: Medical Plan: History of paroxysmal atrial fibrillation, treated with rhythm control using Multaq and metoprolol. EKG done today showing sinus rhythm with first-degree AV block, rate 70, QTC 395 milliseconds. He is on Eliquis for anticoagulation. He has known chronic kidney disease, last labs 01/08/2025 showed creatinine 1.56. No med changes made at this time. (2) CHF (congestive heart failure): Code(s): I50.9 - Heart failure, unspecified Category: Medical Qualifiers: Heart failure type: diastolic Heart failure chronicity: chronic Qualified Code(s): I50.32 - Chronic diastolic (congestive) heart failure Plan: History of diastolic heart failure. Last echocardiogram 10/19/2024 showing EF 65%, mild aortic stenosis, no regional wall motion abnormalities, diastolic function indeterminate, mild septal asymmetric hypertrophy. He is not fluid overloaded on examination. Continue current Lasix every other day as followed by Nephrology. Signs and symptoms of heart failure discussed (3) Asthma-COPD overlap syndrome: Code(s): J44.9 - Chronic obstructive pulmonary disease, unspecified Category: Medical Plan: Stable, follows with pulmonology (4) Hypertension: Code(s): I10 - Essential (primary) hypertension Category: Medical Qualifiers: Hypertension type: primary hypertension Qualified Code(s): I10 - Essential (primary) hypertension Plan: Blood pressure goal less than 130/80. At goal today. Continue metoprolol, losartan. Plan I discussed with the patient the importance of continuing his current medications, including blood thinners and Multaq, for managing paroxysmal atrial fibrillation. We reviewed the signs and symptoms of heart failure and angina. He was instructed to notify this office of any concerning symptoms and ER care if ever needed. Patient Instructions: - Continue taking blood thinners and Multaq as prescribed. - Report any palpitations or unusual symptoms immediately. - Follow up with an office EKG in three months and office visit with EKG in 6 months. Patient was informed and verbally consented to the use of an ambient scribe for clinic note documentation during this visit. Visit time spent on chart review, interview, assessment, orders, documentation. Coding Level of Care Code Est Pt Level 4 (48194) Complex EM visit Add On G2211 Diagnoses PAF (paroxysmal atrial fibrillation) I48.0 Chronic diastolic congestive heart failure I50.32 Heart failure type: diastolic Heart failure chronicity: chronic Asthma-COPD overlap syndrome J44.9 Primary hypertension I10 Hypertension type: primary hypertension CPT Codes EKG - CPT: [id number], Complete ([id number]) Time Spent (min) 28
[2025-04-02 09:11] VITALS: BP 130/60; PULSE 70; BMI 35.0
== END 2025-04-02 09:39 | disposition home or self-care (01) ==
LOC: HO.HCS 08:39
PROVIDERS: PCP Family Medicine; Visit Provider Nurse Practitioner Family
DX: I48.0 Paroxysmal atrial fibrillation (principal); I50.32 Chronic diastolic (congestive) heart failure; J44.9 Chronic obstructive pulmonary disease, unspecified; I10 Essential (primary) hypertension
CPT/HCPCS: 93010; 99214; G2211

== ENCOUNTER → 2025-04-02 08:38 | Outpatient (BNVA) | payer MEDICARE, OTHER, SELFPAY | PROVIDERS: PCP Family Medicine; Visit Provider Nurse Practitioner Family | DX: I48.0 Paroxysmal atrial fibrillation (principal); I13.0 Hypertensive heart and chronic kidney disease with heart failure and stage 1 through stage 4 chronic kidney disease, or unspecified chronic kidney disease; I50.32 Chronic diastolic (congestive) heart failure; N18.9 Chronic kidney disease, unspecified; Z87.891 Personal history of nicotine dependence; J44.9 Chronic obstructive pulmonary disease, unspecified; Z99.81 Dependence on supplemental oxygen; G47.33 Obstructive sleep apnea (adult) (pediatric); Z99.89 Dependence on other enabling machines and devices; Z79.01 Long term (current) use of anticoagulants | CPT/HCPCS: 93005; 99212 ==

== ENCOUNTER 2025-04-12 07:36 | Outpatient (REF) | payer MEDICARE, OTHER, SELFPAY ==
--- OUTSIDE RECORDS SUMMARY | 2025-04-12 07:40 | XMS_ITS | Clinical Summary ---
Author Organization [facility] [address] [facility] Address [address] [place] [address] Phone Care Team Providers Care Fiscal Services Director Name Role Phone Rahul Becerra MD Primary Care Provider [phone] Encounters Date Type Department Care Team Description 04/05/2025 Telephone Lung Screening Program - [address] [phone] Sona Candelario [place] 02/09/2025 Telephone Lung Screening Program - [address] [phone] Mouna Ferrell MA 02/03/2025 10:35 AM EDT - 02/03/2025 11:59 PM EDT Hospital Encounter [facility] CT Scan [address] [place] [phone] Encounter for screening for malignant neoplasm of respiratory organs; Personal history of nicotine dependence Discharge Disposition: Home or Self Care 01/14/2025 Telephone Lung Screening Program - [address] [phone] Sona Candelario MA from Last 3 Months [...] Info) Description 04/28/2025 3:30 PM EST Appointment [facility] CT Scan [address] [place] [phone] Health Maintenance Due Date Last [...] Signed Date: 02/09/2025 04:20 ET Workstation ID: [id number] Transcribed By: Self Edit Transcribed Date: 02/09/2025 [...] Result from Last 3 Months Insurance [facility] Care Teams Fiscal Services Director Relationship Specialty Start Date End Date Rahul Becerra MD [address] [place] [address] Dr [address] ARIANNE Payne PCP - General Internal Medicine 03/18/17
--- OUTSIDE RECORDS SUMMARY | 2025-04-12 07:40 | XMS_ITS | Encounter Summary ---
Author Organization [facility] Address [address] [place] [address] Care Team Providers Care Armature Coil Winder Name Role Phone Rahul Becerra MD Primary Care Provider [phone] Reason for Visit * Reason Onset Date Comments Appointment 04/05/2025 1st Notification Encounter Details Date Type Department Care Team ([facility] st Contact Info) Description 04/05/2025 Telephone Lung Screening Program - [address] [phone] Sona Candelario MA Social History Tobacco Use [...] as of this encounter Progress Notes * Snoa Candelario MA - 04/05/2025 3:06 PM EST Kiran Dela Cruz was contacted by the Lung Cancer Screening Program today to confirm the appointmentof their Lung Cancer Screening. The patient is currently scheduled to have their screening on , Monday April 28, [address] [facility]. No answer left message. For all screenings scheduled during the week, [...] Info) Description 04/28/2025 3:[address] [facility] CT Scan [address] [place] [address] documented as of this encounter Visit Diagnoses Not on filedocumented in this encounter Care Teams Armature Coil Winder Relationship Specialty Start Date End Date Rahul Becerra MD [address] [place] [address] Dr [address] ARIANNE Payne PCP - General Internal Medicine 03/18/17 documented as of this encounter
[2025-04-12 10:06] LABS: MANUAL DIFF FLAG NO
[2025-04-12 10:13] LABS: Hematocrit 37.9 % (42.0-52.0); Hemoglobin 12.2 g/dl (14.0-18.0); Imm Gran Abs Auto 0.05 X10*3/uL (0.00-0.03); Imm Gran Pct Auto 0.6 % (0.0-0.4); Lymphocytes Absolute Auto 2.1 X10*3/uL (1.2-4.9); Mean Corpuscular HGB Conc 32.2 g/dl (31.0-36.0); Mean Corpuscular Hemoglobin 30.0 pg (27.0-33.0); Mean Corpuscular Volume 93.1 fL (80.0-98.0); NRBC Abs Auto 0.000 X10*3/uL (0.0-0.012); NRBC Pct Auto 0.0 /100WBC (0.0-0.2); Platelet Count 337 X10*3/uL (160-400); Red Blood Count 4.07 X10*6/uL (4.60-5.80); White Blood Count 8.7 X10*3/uL (4.8-10.8)
[2025-04-12 10:20] LABS: Appearance Urine Clear; Glucose Urine UA Negative (Negative); PH 5.5 (5.0-9.0); Specific Gravity - Urine 1.015 (1.005-1.025)
[2025-04-12 10:31] LABS: Hemoglobin A1C 111.9561 umol/L
[2025-04-12 10:46] LABS: Alanine Aminotransferase 24 U/L (0-40); Albumin Level 3.8 g/dL (3.5-5.0); Alkaline Phosphatase 87 U/L (39-117); Anion Gap 10 (12-20); Aspartate Amino Transferase 26 U/L (5-37); Blood Urea Nitrogen 27 mg/dL (9-16); Calcium 8.4 mg/dL (8.4-10.2); Carbon Dioxide 27 mmol/L (22-29); Chloride 108 mmol/L (96-108); Cholesterol 152 mg/dL (<200); Estimated Glomerular Filt Rate 41; HDL Cholesterol 68 mg/dL (>40); Potassium 4.7 mmol/L (3.3-5.1); Sodium 140 mmol/L (135-145); Total Protein 6.8 g/dL (6.5-8.0); Triglycerides 62 mg/dL (<150)
[2025-04-12 11:12] LABS: Microalbum/Creatinine Ratio Ur 5.7 ug/mg cr (<30)
== END 2025-04-12 07:37 | disposition home or self-care (01) ==
LOC: HO.HMGCLDS 07:36
PROVIDERS: PCP Family Medicine; Visit Provider Family Medicine
DX: Z00.00 Encounter for general adult medical examination without abnormal findings (principal); R73.01 Impaired fasting glucose; I12.9 Hypertensive chronic kidney disease with stage 1 through stage 4 chronic kidney disease, or unspecified chronic kidney disease; J44.9 Chronic obstructive pulmonary disease, unspecified; N18.9 Chronic kidney disease, unspecified; R26.89 Other abnormalities of gait and mobility; Z74.09 Other reduced mobility; Z12.5 Encounter for screening for malignant neoplasm of prostate
CPT/HCPCS: 36415; 80053; 80061; 81003; 82043; 82570; 83036; 84153; 84443; 85025; 96127; 99212

== ENCOUNTER 2025-04-12 08:41 | Outpatient (AMB) | payer MEDICARE, OTHER, SELFPAY ==
--- NOTE | 2025-04-12 08:54 | A.OFFPC_ITS ---
Vital Signs 04/12/25 08:55 04/12/25 09:29 Height 5 ft 9 in Weight 243 lb 4 oz BMI 35.9 BP 140/60 H 138/62 Blood Pressure Location Rt brachial Rt brachial Position Sitting Sitting Pulse 79 Pulse Source Pulse Oximeter Temp 97.3 F Temp Source Temporal Artery Scan Pulse Oximetry (%) 96 Oxygen Delivery Method Room Air Intake Visit Reasons: CPE with f/u labs and health maint. Allergies watermelon (WATERMELON) Allergy (Severe, Verified 04/12/25 08:57) ANAPHYLAXIS Iodinated Contrast Media (IV CONTRAST) Allergy (Intermediate, Verified 04/12/25 08:57) LIGHT HEADED AND SHORTNESS OF BREATH Medication List - Last Reconciled 04/12/25 by Guilherme Mcallister MD albuterol sulfate 90 mcg/actuation 2 puffs inhalation QID PRN apixaban (Eliquis) 5 mg PO BID arformoterol (Brovana) 15 mcg (2 mL) inhalation BID atorvastatin 80 mg PO DAILY blood pressure monitor Automatic, Digital. Dx: I10. Daily As directed, 999 days/lifetime budesonide 0.5 mg (2 mL) inhalation BID 90 days bupropion HCl 150 mg (2 x 75 mg) PO BID 90 days CPAP (CPAP Machine/Device) As directed doxycycline monohydrate 100 mg PO DAILY 28 days dronedarone (Multaq) 400 mg PO BID ensifentrine (Ohtuvayre) inhalation tevtghqkiue-jyxnlekzf-ffqyqebb 200-62.5-25 mcg (Trelegy Ellipta) 1 inh inhalation DAILY 90 days furosemide 40 mg PO Q OTHER DAY levalbuterol HCl 1.25 mg (3 mL) inhalation QID 90 days losartan 37.5 mg (1.5 x 25 mg) PO DAILY 90 days metolazone 2.5 mg PO .1x week metoprolol succinate ER 100 mg PO DAILY montelukast 10 mg PO DAILY nebulizers As directed Oxygen Home Use As directed prednisone PO daily; Take 2 tabs daily x 5 days, then 1 tablet daily x 5 days 10 days roflumilast 500 mcg PO DAILY tamsulosin (Flomax) 0.4 mg PO BID 90 days tezepelumab-ekko (Tezspire) 210 mg subcut Q4W theophylline ER 200 mg PO DAILY tiotropium bromide 2.5 mcg/actuation (Spiriva Respimat) 2 puffs inhalation DAILY 30 days Tobacco use date assessed: 04/12/25 Fall risk assessment: 1 Fall in past year Last assessed Fall Risk: 04/12/25 Dental Screening Dental Screen Date: 04/12/25 Did you have a dental visit in the last 12 months?: Yes Did you have a dental problem in the last 6 months where you did not have access to dental care?: No Was dental information given to patient?: Patient has dentist HPI CPE with f/u labs and health maint. HPI Details 69 y/o male presents for an extended exa m with f/u labs and health maint. Labs drawn 01/08/25. Reviewed labs with pt. Mild anemia. Creatinine 1.56 mg/dL. BP today 138/62, 79p. He is on losartan 37.5mg, metoprolol 100mg daily. Pt notes breathing could be better. Hx of COPD. [facility] Medical History Nocturnal hypoxia CHF (congestive heart failure) Chronic lung disease COPD with acute exacerbation Chronic lung disease Chronic lung disease Tubular adenoma of colon (~2005) COPD (chronic obstructive pulmonary disease) Pulmonary nodules RAYMOND on CPAP Chronic rhinitis Asthma-COPD overlap syndrome PAF (paroxysmal atrial fibrillation) (~2017) Echocardiogram abnormal Encounter for screening for lung cancer Edema leg Venous insufficiency of both lower extremities AC (acromioclavicular) joint arthritis BPH (benign prostatic hyperplasia) Seasonal allergies Hyperlipidemia Surgical History History of appendectomy History of esophagogastroduodenoscopy (EGD) History of total left hip replacement (~2019) History of repair of right rotator cuff (~2017) History of nasal septoplasty (~2008) History of colonoscopy History of cataract (~2009) Family History Father No problems noted. Mother CAD (coronary artery disease) CHF (congestive heart failure) HTN (hypertension) Brother No problems noted. Brother No problems noted. Sister No problems noted. Sister No problems noted. Sister Mental health disorder Son No problems noted. Son No problems noted. Social History Household Members: Spouse, Family and Children Housing: House Do you presently have visiting nurse or other home services: No Alcohol intake: current Alcohol intake frequency: holidays/special occasions only Patient Tobacco Use Status: Former Tobacco user Tobacco use type: Cigarette Years Smoked: 40 years e-Cigarette/Vaping Use: Former Use Second Hand Smoke Exposure: No Advance Directives Date on File: 10/10/22 service: Yes Current occupational status: retired Cognitive needs: No Hearing needs: No Vision needs: No Questionnaire PHQ-9 Over the last 2 weeks, how often have you been bothered by any of the following problems? 1. Little interest or pleasure in doing things: not at all 2. Feeling down, depressed, or hopeless: not at all 3. Trouble falling or staying asleep, or sleeping too much: not at all 4. Feeling tired or having little energy: not at all 5. Poor appetite or overeating: not at all 6. Feeling bad about yourself - or that you are a failure or have let yourself or your family down: not at all 7. Trouble concentrating on things, such as reading the newspaper or watching television: not at all 8. Moving or speaking so slowly that other people could have noticed. Or the opposite - being so fidgety or restless that you have been moving around a lot more than usual: not at all 9. Thoughts that you would be better off or of hurting yourself in some way: not at all Total score: 0 Source: Developed by Drs. Kwame William, Cayla Candelario, Damian Lee and colleagues, with an educational maria g from [employer]. Thrive Questionnaire Date Thrive assessed: 08/05/24 I am a: Patient What is your living situation today?: I have a steady place to live Within the past 12 months, did the food you bought not last and you didn't have the money to get more?: I choose not to answer this question Within the past 12 months, did you worry whether your food would run out before you got money to buy more?: I choose not to answer this question Do you have trouble paying for medicines?: Yes Do you have trouble getting transportation to medical appointments?: No Do you have trouble paying your heating and electricity bill?: No Do you have trouble taking care of your child, family member or friend?: I choose not to answer this question Do you have trouble with day-to-day activities such as bathing, preparing meals, shopping, managing finances, etc.?: I choose not to answer this question Are you currently unemployed and looking for a job?: I choose not to answer this question Are you interested in more education?: I choose not to answer this question Currently or been in a relationship where the following occur: I choose not to answer THRIVE Score: 0 AUDIT C Alcohol Use Questionnaire (AUDIT-C) 1. How often do you have a drink containing alcohol?: Monthly or less 2. How many drinks containing alcohol do you have on a typical day when you are drinking?: 3 or 4 3. How often do you have six or more drinks on one occasion?: Less than monthly Total Score: 3 STEVEN-7 AMB Questionnaire STEVEN-7 Date STEVEN - 7 assessed: 11/11/24 Feeling nervous, anxious, or on edge: 0 = Not at all Not being able to stop or control worryin = Not at all Worrying too much about different things: 0 = Not at all Trouble relaxin = Not at all Being so restless that it is hard to sit still: 0 = Not at all Becoming easily annoyed or irritable: 0 = Not at all Feeling afraid as if something awful might happen: 0 = Not at all Total STEVEN-7 score (0-4 normal; 5-9 mild; 10-14 moderate; 15-21 severe): 0 Source: Developed by Drs. Kwame William, Cayla Candelario, Damian Lee and colleagues, with an educational maria g from [employer]. Review of Systems Const Denies chills, Denies fatigue, Denies fever(s), Denies headache(s) and Denies weakness Eyes Denies change in vision ENT Denies dizziness, Denies headache(s), Denies hearing loss, Denies nasal c ongestion, Denies sinus pain, Denies sinus pressure and Denies sore throat Card Denies chest pain, Denies lightheadedness, Denies dyspnea and Denies other (palpitations) Resp Denies cough, Denies dyspnea and Denies wheezing GI Denies abdominal pain, Denies melena, Denies hematochezia, Denies change in bowel habits, Denies dyspepsia and Denies nausea Denies hematuria and Denies dysuria Musc Denies abnormal gait, Denies myalgias, Denies arthralgias, Denies numbness and Denies tingling Skin/Breast Denies rash, Denies unusual bruising and Denies wounds Neuro Denies abnormal gait, Denies dizziness, Denies headache(s), Denies memory loss, Denies numbness, Denies Sensory deficit (Neuro), Denies tingling and Denies weakness Psych Denies anxiety, Denies depression and Denies memory loss Endo Denies cold intolerance, Denies fatigue, Denies heat intolerance, Denies polydipsia and Denies polyuria Kelvin/Lymph Denies easy bleeding and Denies easy bruising Aller/Immun Denies wheezing Physical exam (Primary Care) Vital Signs: Last Vital Signs Temp 97.3 F 04/12/25 08:55 Pulse 79 04/12/25 08:55 BP 138/62 04/12/25 09:29 Pulse Ox 96 04/12/25 08:55 Oxygen Delivery Method Room Air 04/12/25 08:55 BMI result Body Mass Index 35.9 Tobacco/Smoking Status: Tobacco use Status Tobacco use date assessed 04/12/25 04/12/25 09:03 Patient Tobacco Use Status Former Tobacco user 04/12/25 09:03 Tobacco use type Cigarette 04/12/25 09:03 e-Cigarette/Vaping Use Former Use 04/12/25 09:03 PHQ-9: PHQ-9 Score PHQ-9: Total score 0 04/12/25 09:29 Thrive Assessment: Date of Thrive Assessment Date Thrive assessed 08/05/24 04/12/25 09:03 Currently or been in a relationship where the following occur: I choose not to answer Const General: no acute distress, well developed, alert and awake Nutritional Appearance: well nourished Orientation/consciousness: patient oriented x3 HENMT Head: Yes normocephalic and Yes atraumatic Ears: hearing grossly normal bilaterally and TM's normal bilaterally General nose exam: Normal external nose present and Normal nares present Mouth: Normal oral and palatal mucosa present and moist mucous membranes Teeth and gingiva: dentition normal Throat: Yes posterior oropharynx normal Eyes General: appearance normal, both eyes and all related structures Pupils: Equal, round and reactive pupils present and Pupil accommodation reflex normal EOM: EOMs intact bilaterally Neck Neck: Yes normal visual inspection, Yes no lymphadenopathy and Yes trachea midline Thyroid: Thyroid normal Carotids: no bruits Lymphatic: no lymphadenopathy noted Chest Chest palpation & inspection: normal inspection of the chest Resp Effort & Inspection: normal respiratory effort Auscultation: clear to auscultation bilaterally Cardio Rate: regular rate Rhythm: regular rhythm Heart sounds: S1 normal heart sound present, S2 normal heart sound present, no gallops, no murmurs and no rubs Bruits: no abdominal aortic bruits and no carotid bruits GI Palpation (GI): No Abdominal aortic bruit present, Soft to palpation, nontender, No hepatosplenomegaly present and No Rebound tenderness present Auscultation: normal bowel sounds General: Yes no CVA tenderness Back/Spine/Pelvis Back: no CVA tenderness Cervical Spine: cervical ROM normal and No Cervical spine tenderness Thoracic/Lumbar Spine: thoraco-lumbar ROM normal, No pain with thoraco-lumbar ROM, No thoracic spinal tenderness and No lumbar spinal tenderness Skin Lesions: no lesions Rashes: no rashes Trauma: no lacerations or abrasions Wounds: no wounds Nails: normal Neuro General: patient oriented x3 Cranial nerves: Yes Equal, round and reactive pupils present Cognition (Neuro): normal cognition Gait exam (Neuro): Normal gait present Motor exam (neuro): 5/5 motor strength present throughout Sensory Exam: No Sensory deficit (Neuro) Deep tendon reflexes (DTR's): Right patellar reflex intensity grade: 2+ and Left patellar reflex intensity grade: 2+ Extrem General: Yes normal to inspection and No edema Psych Appearance: grossly normal Affect: normal affect Attitude: cooperative Thought process: Normal thought process present Coding Level of Care Code Est Pt Level 4 (92147) Diagnoses Primary hypertension I10 Hypertension type: primary hypertension COPD (chronic obstructive pulmonary disease) J44.9 COPD type: chronic bronchitis Chronic kidney disease, unspecified CKD stage N18.9 Chronic kidney disease stage: unspecified stage Decreased mobility R26.89 Adult general medical exam Z00.00 Assessment & Plan Assessment & Plan (1) Hypertension: Code(s): I10 - Essential (primary) hypertension Category: Medical Qualifiers: Hypertension type: primary hypertension Qualified Code(s): I10 - Essential (primary) hypertension Plan: Blood pressure is elevated. Goal is less than 130/80 Unclear what medications he is taking. Will have him check his medication list at home with his and we will follow-up by telemedicine (2) COPD (chronic obstructive pulmonary disease): Code(s): J44.9 - Chronic obstructive pulmonary disease, unspecified Category: Medical Qualifiers: COPD type: chronic bronchitis Plan: Patient has history of COPD and current exacerbation He is not using his oxygen in the office today and I encouraged him to do so He says he is using his inhaled medications Will give him a short course of increased prednisone and then he can resume 10 mg every other day Will also give him a Z-Lopez He has an upcoming appointment with Pulmonary Medicine (3) CKD (chronic kidney disease): Code(s): N18.9 - Chronic kidney disease, unspecified Category: Medical Qualifiers: Chronic kidney disease stage: unspecified stage Qualified Code(s): N18.9 - Chronic kidney disease, unspecified Plan: Checking labs and we will review at upcoming telemedicine appointment (4) Decreased mobility: Code(s): R26.89 - Other abnormalities of gait and mobility Category: Medical Plan: Decreased mobility and patient gets short of breath with exertion due to asthma/COPD Will write a script for a motorized scooter for long distances. Strongly encouraged patient to continue exercising and walking shorter distances Patient says he understands (5) Adult general medical exam: Code(s): Z00.00 - Encounter for general adult medical examination without abnormal findings Category: Medical Plan: 69-year-old male presents for an extended exam Medications: New miscellaneous medical supply Motorized scooter, Daily As directed, 999 days 1 ea 0RF J44.9 - Chronic obstructive pulmonary disease, unspecified, Z74.09 - Other reduced mobility prednisone 40 mg (2 x 20 mg) PO DAILY 10 tabs 0RF 5 days azithromycin (Zithromax Z-Lopez) take 500 mg today (day 1), then 250 mg for 4 days (days 2-5) PO 6 tabs 0RF 5 days Refilled prednisone PO daily; Take 2 tabs daily x 5 days, then 1 tablet daily x 5 days 15 tabs 0RF 10 days
[2025-04-12 08:55] VITALS: BP 140/60; PULSE 79; TEMP 36.3; O2SAT 96; BMI 35.9
[2025-04-12 09:29] VITALS: BP 138/62
== END 2025-04-12 10:16 | disposition home or self-care (01) ==
LOC: HO.HMCFM 08:42
PROVIDERS: PCP Family Medicine; Visit Provider Family Medicine
DX: I12.9 Hypertensive chronic kidney disease with stage 1 through stage 4 chronic kidney disease, or unspecified chronic kidney disease (principal); J44.9 Chronic obstructive pulmonary disease, unspecified; N18.9 Chronic kidney disease, unspecified; R26.89 Other abnormalities of gait and mobility; Z00.00 Encounter for general adult medical examination without abnormal findings

== ENCOUNTER 2025-04-27 14:56 | Outpatient (AMB) | payer MEDICARE, OTHER, SELFPAY ==
--- NOTE | 2025-04-27 15:01 | A.OFFVIS_ITS ---
Intake Visit Reasons: 1 yr follow up carotid US 04/02/25 Intake Note: Patient presents for carotid US performed on 04/02/25. No complaints. Accompanied by: Self / Same As Patient Allergies watermelon (WATERMELON) Allergy (Severe, Verified 04/27/25 15:03) ANAPHYLAXIS Iodinated Contrast Media (IV CONTRAST) Allergy (Intermediate, Verified 04/27/25 15:03) LIGHT HEADED AND SHORTNESS OF BREATH HPI HPI 1 yr follow up carotid US 04/02/25: Details: The patient is a 69 year old male presenting for a follow-up visit for his carotid artery condition. He initially presented for evaluation of leg swelling, which has since resolved, and a subsequent leg ultrasound for his veins was unremarkable. During that initial evaluation, a carotid artery issue was identified. The patient has a history of atrial fibrillation, for which he takes Eliquis. He was previously on a baby aspirin but was taken off it when the blood thinner was started. He also takes a high-dose statin. He denies a history of diabetes and quit smoking 12-13 years ago. [facility] Medical History Nocturnal hypoxia CHF (congestive heart failure) Chronic lung disease COPD with acute exacerbation Chronic lung disease Chronic lung disease Tubular adenoma of colon (~2005) COPD (chronic obstructive pulmonary disease) Pulmonary nodules RAYMOND on CPAP Chronic rhinitis Asthma-COPD overlap syndrome PAF (paroxysmal atrial fibrillation) (~2017) Echocardiogram abnormal Encounter for screening for lung cancer Edema leg Venous insufficiency of both lower extremities AC (acromioclavicular) joint arthritis BPH (benign prostatic hyperplasia) Seasonal allergies Hyperlipidemia Surgical History History of appendectomy History of esophagogastroduodenoscopy (EGD) History of total left hip replacement (~2019) History of repair of right rotator cuff (~2017) History of nasal septoplasty (~2008) History of colonoscopy History of cataract (~2009) Family History Father No problems noted. Mother CAD (coronary artery disease) CHF (congestive heart failure) HTN (hypertension) Brother No problems noted. Brother No problems noted. Sister No problems noted. Sister No problems noted. Sister Mental health disorder Son No problems noted. Son No problems noted. Social History Household Members: Spouse, Family and Children Housing: House Do you presently have visiting nurse or other home services: No Alcohol intake: current Alcohol intake frequency: holidays/special occasions only Patient Tobacco Use Status: Former Tobacco user Tobacco use type: Cigarette Years Smoked: 40 years e-Cigarette/Vaping Use: Former Use Second Hand Smoke Exposure: No Advance Directives Date on File: 10/10/22 service: Yes Current occupational status: retired Cognitive needs: No Hearing needs: No Vision needs: No Review of Systems Const All systems reviewed & are unremarkable except as noted in HPI and below Reports no additional complaints ENT Reports Normal hearing present Card Denies chest pain, Denies chest pain at rest, Denies chest pain with activity and Denies pedal edema Resp Denies cough GI Denies abdominal pain Musc Denies abnormal gait, Denies muscle cramps and Denies radiating pain into limb Skin/Breast Denies skin ulcer and Denies wounds Neuro Reports Normal hearing present and Denies abnormal gait Psych Reports no additional complaints Physical Exam Const General: cooperative, healthy appearing and comfortable Orientation/consciousness: oriented to person, oriented to place and oriented to time HEENT Head: Yes normal to inspection Neck Neck: Yes normal visual inspection Carotids: no bruits Chest Chest palpation & inspection: normal inspection of the chest Resp Effort & Inspection: normal respiratory effort and able to speak in complete sentences Auscultation: clear to auscultation bilaterally, no crackles, no rales, no rhonchi and no wheezes Cardio Rate: regular rate Rhythm: regular rhythm Heart sounds: S1 normal heart sound present and S2 normal heart sound present Bruits: no carotid bruits Peripheral pulses: Peripheral pulses 2+ throughout GI Inspection: Yes normal to inspection Skin Wounds: no wounds Hair: normal Neuro General: oriented to person, oriented to place and oriented to time Cranial nerves: Yes CN's II-XII intact bilaterally and Yes Normal hearing present Cognition (Neuro): normal cognition Motor exam (neuro): 5/5 motor strength present throughout Extrem Other: venous exam: No significant superficial varicosities or spider telangiectasias, minimal edema General: No clubbing, No cyanosis and No edema Psych Appearance: grossly normal Mental Status: mental status grossly normal Speech and movement: Normal speech and movement present Results Reviewed Results Reviewed: Carotid testing dated 04/01/2025 demonstrates bilateral 0-49% stenosis. Very poor radiology initial read. We will send for reread. Assessment & Plan Assessment & Plan (1) Carotid stenosis, bilateral: Code(s): I65.23 - Occlusion and stenosis of bilateral carotid arteries Category: Medical Plan: I reviewed the results of the recent carotid ultrasound with the patient, explaining that the findings showed mild plaque on both sides, with approximately 0-49% stenosis, which is not concerning and requires no intervention at this time. We discussed his current medication regimen, noting that he is appropriately managed on Eliquis for atrial fibrillation and a statin for his cholesterol, which are also beneficial for his carotid condition. I recommended he continue his current medications and follow up in one year for repeat carotid surveillance. (2) Varicose veins of right lower extremity with inflammation: Comment: 01/01/2020 - right great saphenous vein Cyanoacralate ablation Code(s): I83.11 - Varicose veins of right lower extremity with inflammation Category: Medical Plan: Stable (3) Varicose veins of left lower extremity with inflammation: Comment: 11/13/2019 - left great saphenous vein Cyanoacralate ablation Code(s): I83.12 - Varicose veins of left lower extremity with inflammation Category: Medical Plan: Stable Plan Patient was informed and verbally consented to the use of an ambient scribe for clinic note documentation during this visit. Orders: Orders US carotid duplex BI 1 Year I65.23 - Occlusion and stenosis of bilateral carotid arteries Patient Instructions: - Your recent ultrasound of the neck arteries showed only mild plaque buildup, which is not a concern at this time. - Continue taking your current medications as prescribed, including Eliquis and your cholesterol pill. - You do not need to take a baby aspirin because you are already on a different blood thinner. - Please schedule a follow-up appointment in one year to have your neck arteries checked again. Coding Level of Care Code Est Pt Level 4 (71029) Diagnoses Carotid stenosis, bilateral I65.23 Varicose veins of right lower extremity with inflammation I83.11 Varicose veins of left lower extremity with inflammation I83.12
== END 2025-04-27 15:10 | disposition home or self-care (01) ==
LOC: HO.HVS 14:57
PROVIDERS: PCP Family Medicine; Visit Provider Surgery Vascular Surgery
DX: I65.23 Occlusion and stenosis of bilateral carotid arteries (principal); I83.11 Varicose veins of right lower extremity with inflammation; I83.12 Varicose veins of left lower extremity with inflammation
CPT/HCPCS: 99214

== ENCOUNTER → 2025-04-27 14:56 | Outpatient (BNVA) | payer MEDICARE, OTHER, SELFPAY | PROVIDERS: PCP Family Medicine; Visit Provider Surgery Vascular Surgery | DX: I65.23 Occlusion and stenosis of bilateral carotid arteries (principal); I83.11 Varicose veins of right lower extremity with inflammation; I83.12 Varicose veins of left lower extremity with inflammation | CPT/HCPCS: 99212 ==

== ENCOUNTER 2025-05-14 10:32 | Outpatient (AMB) | payer MEDICARE, OTHER, SELFPAY ==
[2025-05-14 10:34] VITALS: BP 140/50; PULSE 82; O2SAT 95; BMI 34.8
--- NOTE | 2025-05-14 10:34 | MHC.OFFVIS ---
Vital Signs 05/14/25 10:34 Height 5 ft 9 in Weight 235 lb 14.314 oz BMI 34.8 BP 140/50 H Blood Pressure Location Lt brachial Position Sitting Pulse 82 Pulse Source Pulse Oximeter Pulse Oximetry (%) 95 Oxygen Delivery Method Room Air Intake Visit Reasons: Obstructive sleep apnea Interactive Media Marketing Director Required: No Master Rigger: Master Rigger offered & declined Accompanied by: Self / Same As Patient Allergies watermelon (WATERMELON) Allergy (Severe, Verified 05/14/25 10:37) ANAPHYLAXIS Iodinated Contrast Media (IV CONTRAST) Allergy (Intermediate, Verified 05/14/25 10:37) LIGHT HEADED AND SHORTNESS OF BREATH HPI Comments Details: Patient is a 69 y/o man with history of underlying pulmonary nodules, RAYMOND on CPAP, asthma COPD overlap syndrome, tracheobronchomalacia in addition to hypersensitivity pneumonitis due to multiple exposures especially at while he was working. He has been using CPAP therapy the CPAP therapy has been very affecting beneficial. The CPAP therapy he uses every night for more than 4 hours. Recently he did have a CT scan of his chest for the lung cancer screening program and is nodular densities have resolved which is very reassuring. He is scheduled for the CT scan in a year's time. I am hopeful that we can decrease the amount of Xopenex that he is using and then hopefully decrease the amount of budesonide that he is using. His CPAP therapy has been affecting beneficial. He has been getting supplies through [facility] now regularly. His CPAP therapy he does use for more than 4 hours a night. He has lost about 30 lb. He still on Daliresp that is likely contributing to that. If he co 08/28/2023 the patient is here for sick visit. He is having hard time with his breathing. The patient recently call the office with worsening risk was sent to the ER. He wants admitted on August 04 to the hospital. He had a chest x-ray demonstrating bilateral pneumonia. This is superimposed on his underlying interstitial lung disease. He was treated with prednisone addition to antibiotics subsequently discharged. He did not require oxygen upon discharge. The patient has been weaning off the prednisone down to 10 mg of prednisone having hard time with his breathing. He is then in bed now for about 3 days. His coughing has gotten worse expectorating discolored mucus. Denies any hemoptysis. In the office he does have significant wheezing chest tightness. Will go ahead and give him a couple treatments of DuoNeb. Hopefully we can improve his respiratory symptoms we can start antibiotics and give him additional Solu-Medrol and prednisone for home. If however he does not improve after the breathing treatments then will consider transferring him to the ER. 09/18/2023 the patient is here for a pulmonary follow-up visit. The patient recently was hospitalized because of the bad bronchopneumonia and asthma exacerbation. He is now recovering. He feels a little better although starting to get chest tightness again. He has been using prednisone 20 mg daily in his also been using all his respiratory medicines. He is also developing some lower extremity edema swelling redness. Is tender to the touch. It appears to be bilateral cellulitis. I did review his chest x-ray he did have run this is a week ago and compared to the x-ray he had when he was admitted to the hospital still demonstrates hazy opacities suggesting some component of pneumonitis. Therefore will increase the prednisone and also will keep him on some antibiotics to treat him for cellulitis. He will return in 3-4 weeks. If he has any worsening symptoms he will call prior to that visit. 10/07/2023 the patient is here for a pulmonary follow-up visit. The patient is feeling lot better. He is recovering now closer to his baseline. He is down to 20 mg of prednisone. He would like to come off. However, will need to very careful as we wean off slowly. Therefore will decrease by 5 mg every 7-10 days. Hopefully he can come off completely. He continues on his respiratory therapy with good effect. He also continues with CPAP using more than 4 hours a night. The CPAP therapy continues to be affecting beneficial. The lower extremity edema as a little better he continues to have some degree of erythema but it does not look infected anymore. He did complete the doxycycline. Otherwise patient is doing better so therefore we will continue his current respiratory regimen and hopefully we can wean off completely from the prednisone. Will follow-up in 4 months. 04/15/2024 the patient is here for a pulmonary follow-up visit. Overall he is doing okay. Does complaint of dyspnea on exertion. Sometimes he is so short of breath that he goes to his home in uses his oxygen via his concentrator. Which is the portability outside of the home. The patient also has been dealing with renal failure. This kidney now is back to baseline although does have some chronic renal insufficiency. The patient continues on injections, Tezspire. 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 He has been developing increasing infections. Therefore we will be talking to his journeyman mechanic regarding switching his biologic to a different regimen. I do believe does good options specially if he continues with significant COPD and wheezing symptoms. The patient did have a walking oximetry in the office and he did desaturate down to 88% with activity was visibly dyspneic and the heart rate went up to 120 beats per minute. Dyspnea score 7/10. 2 L pulse with sufficient to keep his oxygen around 94 % with activity. He already has oxygen through [employer] as the concentrator home. He will need portability. I will request a portable oxygen concentrator for him to use for better portability outside of the home. Also he will continue to use his CPAP at home. We did review his sleep study. We had requested a titration study but it looks like they just did a regular sleep. Therefore, will have him do an overnight oximetry on room air to see if he still needs the oxygen at nighttime. 07/16/2024 the patient is here for a pulmonary follow-up visit. He has been struggling now for several weeks. He has had worsening cough shortness of breath chest tightness. Moderate to severe. He has been using his nebulizer regularly 2 to 4 times a day and has been continued his other medicines. The patient did run out of his prednisone though. He was trying to wean himself off it. Right now he does have significant chest tightness and wheezing. Explained to him that he probably have to stay on a small dose of prednisone regularly to avoid his severe exacerbations. In the meantime he is using the CPAP the CPAP therapy continues to be affecting beneficial. He is using it with oxygen. Will have to do an overnight oximetry on room air to see if he does not need the oxygen any longer while sleeping. He can do that whenever he is feeling better. He continues on the biologic therapy, Tezspire. He is going to be following up soon with his journeyman mechanic to see if any further changes need to take place. 08/10/2024 the patient is here for pulmonary follow-up visit. Overall he is feeling a lot better. He is down to 10 mg of prednisone. He is going on a cruise next weeks. At this point will go ahead and optimize his respiratory therapy by adding Spiriva to his regimen. He also needs any nebulizer since is broken. Will send a prescription to the local [employer]. Hopefully can get a before his trip. The patient continues to CPAP therapy. The CPAP therapy continues to be affecting beneficial he does use it for more than 4 hours. He will take the CPAP with him. He also continues on the biologic therapy, Tezspire with good results. Right now the patient continues to have a little wheezing on exam but closer to his baseline. I am hopeful that the long-acting muscarinic antagonist be helpful. Will follow-up in a couple months. After he gets back from his trip he can start decreasing the prednisone some. But hopefully will stay on small dose and try to find the lowest most effective dose. 10/21/2024 the patient is here for pulmonary follow-up visit. She is still struggling with breathing. He had to increase the prednisone to 20 mg because he was having worsening breathing. He continues on the Tezspire. He needs to follow-up with Allergy immunology to see if he has a better candidate for Dupixent. He already tried and failed Fasenra. In the meantime the patient has been using nebulized therapy with Brovana and budesonide in addition to the albuterol. The patient is still struggling even with all those breathing treatments. Will did talk about starting Ohtuvayre. This will be a better option for him to try to minimize steroid in the prednisone dose is too high for him. Ideally we can start him on the nebulized therapy and subsequently we can also transitioning to inhalers so he does not have to take some any nebulized treatments a day. He continues uses CPAP at nighttime with good effect. CPAP therapy has been affecting beneficial. He does use it for more than 4 hours a night. Although initially he did have an overnight test demonstrating he did in the oxygen but he is now waking up short of breath and felt better on the oxygen so he went back on it. He also has the oxygen portable oxygen concentrator that he uses with activity outside of the home that is also been affecting beneficial. 01/05/2025 the patient is here for pulmonary sick visit. He has been having worsening respiratory symptoms. The patient has been on 20 mg of prednisone still having hard time breathing. Very dyspneic with minimal activity. He did start the new nebulized therapy, ohtuvaye. But, has not seen any significant improvement. Try to simplify his nebulizer therapy because now he is on multiple agents. Therefore, will switch him to an inhaler such as Trelegy and therefore we can hold off on the Brovana and the budesonide and the Spiriva. In addition to that the patient will start doxycycline and will continue with the prednisone for now. He continues with the Tezspire through the allergy office. If he continues to be symptomatic we can consider bronchoscopy to assess the airways and for deep cultures. We could also consider referral to [place] for 2nd opinion because of his significant obstructive disease refractory to an aggressive regimen of medications. 02/12/2025 the patient is here for follow-up visit. He is feeling better. He feels it is actually getting worse. He has been noticing worsening hypoxia. He does use the oxygen in the oxygen does help him although he does not have it with him right now. He continues on the prednisone 10 mg daily in his just completed a taper. He also completed a full course of doxycycline. He continues on the very aggressive respiratory regimen with minimal relief. Recently he did take part in the lung cancer screening program at [facility] where he had a CT scan demonstrating increasing tree-in-bud suggesting bronchiolitis. This may have something to do with his breathing issues the patient will be placed on azithromycin 500 mg 3 times a week in also will request a sputum for culture and also AFB. He will be following up with the lung cancer screening program at [facility] in the meantime. The patient will need additional prednisone unfortunately and we did talk about other options including theophylline with the patient is not a candidate because of his atrial fibrillation. The patient also will restart the budesonide with the idea that will help him minimize the amount of prednisone that he will need. He will follow-up closely with us. The meantime needs uses oxygen with activity to make sure that his oxygen as above 88%. He is also using the CPAP at nighttime and CPAP therapy has been affecting beneficial. 03/12/2025 the patient is here for pulmonary follow-up visit. He is feeling a little bit better. Last time he required lot of Solu-Medrol and also prednisone taper. He is down to 10 mg of baseline prednisone. He continues on the test prior the question is if it is really working for him. But he continues to be significantly wheezy so it is not time to stop the medicine. The patient does have a history AFib and he is on antiarrhythmic. Will try small dose of theophylline to see if we can have him tolerated without adverse effects. Will monitor closely his levels. The patient will continue his current respiratory therapy with history nebulizer medicines and continues on the Trelegy. The patient overall is doing well. He will follow-up in a couple months. If he has any issues prior to the 2nd always call for an earlier assessment. Also to note the patient did have a CT scan through the lung cancer screening program at [facility]. It was considered a rods 0 because he has multiple new nodules. Largest nodule measuring 8 mm in size. He is scheduled to undergo a repeat CAT scan 3 months from the last which will be in a couple months. 05/14/2025 the patient is here for pulmonary follow-up visit. He feels about the same. Continues on 20 mg of prednisone. He did not start the theophylline. Explained the theophylline will be helpful but he needs to started slowly. Therefore given the instructions again how to use it he monitors increased heart rate or any other adverse effects he can always stop it. I am hoping he can not tolerated small dose to be able to minimize and decrease the prednisone. He does not feel like it is [facility] Therefore hold off for the month of May and see if there is any change in his symptoms. If he does notice a change she needs to continue. If he has he has no change she will hold off on it. He continues uses CPAP. CPAP therapy continues to be affecting beneficial he does use it for more than 4 hours a night. Will plan to follow-up in 3-4 months if he has any issues he can always call. I am hopeful that he can slowly taper down to 15 mg of prednisone. [facility] Medical History Nocturnal hypoxia CHF (congestive heart failure) Chronic lung disease COPD with acute exacerbation Chronic lung disease Chronic lung disease Tubular adenoma of colon (~2005) COPD (chronic obstructive pulmonary disease) Pulmonary nodules RAYMOND on CPAP Chronic rhinitis Asthma-COPD overlap syndrome PAF (paroxysmal atrial fibrillation) (~2017) Echocardiogram abnormal Encounter for screening for lung cancer Edema leg Venous insufficiency of both lower extremities AC (acromioclavicular) joint arthritis BPH (benign prostatic hyperplasia) Seasonal allergies Hyperlipidemia Surgical History History of appendectomy History of esophagogastroduodenoscopy (EGD) History of total left hip replacement (~2019) History of repair of right rotator cuff (~2017) History of nasal septoplasty (~2008) History of colonoscopy History of cataract (~2009) Family History Father No problems noted. Mother CAD (coronary artery disease) CHF (congestive heart failure) HTN (hypertension) Brother No problems noted. Brother No problems noted. Sister No problems noted. Sister No problems noted. Sister Mental health disorder Son No problems noted. Son No problems noted. Social History Household Members: Spouse, Family and Children Housing: House Do you presently have visiting nurse or other home services: No Alcohol intake: current Alcohol intake frequency: holidays/special occasions only Patient Tobacco Use Status: Former Tobacco user Tobacco use type: Cigarette Years Smoked: 40 years e-Cigarette/Vaping Use: Former Use Second Hand Smoke Exposure: No Advance Directives Date on File: 10/10/22 service: Yes Current occupational status: retired Cognitive needs: No Hearing needs: No Vision needs: No Review of Systems Const Denies fatigue Eyes Denies change in vision ENT Reports nasal congestion, Reports nasal discharge and Denies sore throat Card Denies chest pain, Reports dyspnea and Reports dyspnea on exertion Resp Reports chest congestion, Reports cough, Denies hemoptysis, Reports dyspnea, Reports dyspnea on exertion and Reports wheezing GI Reports no additional complaints Musc Reports no additional complaints Skin/Breast Denies rash Neuro Reports no additional complaints Psych Reports no additional complaints Endo Denies fatigue and Denies heat intolerance Kelvin/Lymph Denies easy bleeding, Denies easy bruising and Denies lymphadenopathy Aller/Immun Reports wheezing Physical Exam Vital Signs: Last Vital Signs Pulse 82 05/14/25 10:34 BP 140/50 H 05/14/25 10:34 Pulse Ox 95 05/14/25 10:34 Oxygen Delivery Method Room Air 05/14/25 10:34 BMI result Body Mass Index 34.8 Const General: comfortable and alert Orientation/consciousness: patient oriented x3 Eyes Pupils: Equal, round and reactive pupils present Neck Neck: Yes normal visual inspection, Yes full ROM and Yes no lymphadenopathy Chest Chest palpation & inspection: normal inspection of the chest Resp Effort & Inspection: normal respiratory effort and prolonged expiratory phase Auscultation: wheezes and diminished lung sounds Cardio Rate: regular rate Rhythm: regular rhythm Heart sounds: S1 normal heart sound present and S2 normal heart sound present GI Palpation (GI): Soft to palpation and nontender Auscultation: normal bowel sounds General: Yes no CVA tenderness Back/Spine/Pelvis Back: no CVA tenderness Skin General skin exam: no rashes or lesions noted Neuro General: patient oriented x3 Cranial nerves: Yes Equal, round and reactive pupils present Extrem General: Yes no clubbing, cyanosis or edema Office Procedures Flu Questionnaire Does the patient have a severe egg allergy?: No Does the patient have severe life threatening allergies?: No Does the patient have a fever or illness today?: No Has the patient ever had Guillain-[place] Syndrome?: No Has the patient ever had any past reaction to a flu shot?: No Immunizations Fluarix [id number] (PF) 45 mcg (15 mcg x 3)/0.5 mL IM syringe Performing Provider: Sha Head MD Performing Location: [facility] Administered by: Sha Head MD on 05/14/25 12:47 Dose Route Admin Location Dispensed Lot Number Expiration Date NDC Excellence Coach 0.5 mL IM Right Deltoid 0.5 mL [id number] 11/16/25 01589-334-40 [employer] VIS Given Date VIS Provided VIS Publication Date 05/14/25 Single Vaccine 24 Eligibility Eligibility Date Funding Source Not [facility] Eligible 05/14/25 Private Assessment & Plan Assessment & Plan (1) COPD (chronic obstructive pulmonary disease): Code(s): J44.9 - Chronic obstructive pulmonary disease, unspecified Category: Medical Qualifiers: COPD type: chronic bronchitis Chronic bronchitis type: mucopurulent Qualified Code(s): J41.1 - Mucopurulent chronic bronchitis (2) Asthma-COPD overlap syndrome: Code(s): J44.9 - Chronic obstructive pulmonary disease, unspecified Category: Medical (3) Pulmonary nodules: Code(s): R91.8 - Other nonspecific abnormal finding of lung field Category: Medical (4) RAYMOND on CPAP: Code(s): G47.33 - Obstructive sleep apnea (adult) (pediatric); Z99.89 - Dependence on other enabling machines and devices Category: Medical (5) Chronic rhinitis: Code(s): J31.0 - Chronic rhinitis Category: Medical (6) Nocturnal hypoxia: Code(s): G47.34 - Idiopathic sleep related nonobstructive alveolar hypoventilation Category: Medical Plan continue Tezspire [id number], Will call Dr Ornelas about changing Biologic start Theophylline 200mg, pt will monitor HR Trelegy 200 daily continue Ohtuvayre completed Bactrim (no Macrolide/quanalone due to use of anti arrhythmic) continue Budesonide nebs ANN as needed continue APAP, adjusted pressures 6-12 oxygen with activity: POC 2L/min with activity. Requesting POC for better portability outside of the home continue oxygen supplementation while sleeping with CPAP. Consider holding Tezspire next month to assess need of medication. If still he does not see any benefit, continue holding. LDCT in 2 months F/U 2 months Orders: Orders Influenza [id number] Immunization 05/14/25 Z23 - Encounter for immunization Medications: New prednisone see taper instructions 10 mg PO DAILY 90 days 90 tabs 3RF prednisone see taper instructions 10 mg PO DAILY 90 tabs 3RF 90 days prednisone 10 mg (2 x 5 mg) PO DAILY 180 tabs 11RF 90 days Coding Level of Care Code Est Pt Level 4 (99476) Diagnoses Mucopurulent chronic bronchitis J41.1 COPD type: chronic bronchitis Chronic bronchitis type: mucopurulent Asthma-COPD overlap syndrome J44.9 Pulmonary nodules R91.8 RAYMOND on CPAP G47.33; Z99.89 Chronic rhinitis J31.0 Nocturnal hypoxia G47.34 Time Spent (min) 17
--- OUTSIDE RECORDS SUMMARY | 2025-05-14 10:34 | XMS_ITS | Encounter Summary ---
Author Organization [facility] Address [address] [place] [address] Care Team Providers Care Company Manager Name Role Phone Rahul Becerra MD Primary Care Provider [phone] Reason for Referral * Imaging (Routine) - Authorized Specialty Diagnoses / Procedures Referred By Contac t Referred To Contact Radiology Diagnoses Lung nodule Procedures CT Chest wo Contrast (Lung-RADS F/U) Danitza Castillo NP [address] [place] [phone] Phone: tel: fax: [facility] Referral ID Status Reason Start Date Expiration Date V isits Requested Visits Authorized [id number] Authorized 05/14/2025 05/14/2026 1 1 Reason for Visit * Reason Onset Date Comments Results 05/03/2025 Lung Screening- Suspicious Findings Encounter Details Date Type Department Care Team ([facility] st Contact Info) Description 05/03/2025 Telephone Lung Screening Program - [address] [place] [address] Mouna Ferrell MA Social History Tobacco Use [...] as of this encounter Progress Notes * Danitza Castillo NP - 05/14/2025 8:30 AM ESTAddended by: DANITZA CASTILLO on: 05/14/2025 08:30 AM Modules accepted: Orders * Danitza Castillo NP - 05/14/2025 8:28 AM EST Images from the original note were not included. Lung Cancer Screening Program Suspicious Finding: Tumor Board Review Name: Kiran Dela Cruz : 1955 Care Team Referring Physician: No ref. provider found Primary Care Physician: Rahul Becerra MD Mr. Dela Cruz is a current patient of the Lung Cancer Screening Program at [facility]. He had his Low Dose Screening CT on 04/28/25 which was given a LungRADS score of 4 due to the following suspicious finding: New 8 x 12 mm solid nodule in the right lung apex. Due to this finding, the patient was presented at our Multidisciplinary Thoracic Tumor Board Conference on 05/10/25. Tumor Board Recommendations Recommendation at this time includes: repeat CT chest in 3 months and Follow up appointment with [facility] to be arranged after repeat scan.. The patient will be hearing from our office with the appointment date(s) for the above recommendations. This information was communicated with the patient on 05/14/2025 at 8:28 AM EST via telephone call.All of his questions and concerns were answered and understood. Danitza Castillo NP [facility] Lung Cancer Screening Program [address] [place] [address], [address] [phone] * Danitza Castillo NP - 05/11/2025 4:19 PM EST LM to call back * Eri Maldonado MA - 05/10/2025 1:55 PM EST This patient's case was presented at our Multidisciplinary Thoracic Tumor Board Conference. This conference consists of Medical Oncologists, Radiation Oncologists, Thoracic Surgeons, Pathologists, Radiologists, Pulmonologists, Nurses, Cancer Program Coordinators, and other members of the health care team. Reviewed is the patient's diagnosis, summary, pertinent history, diagnostic imaging, and pathology findings. The recommendations are as follows: 3 month follow up LDCT with [facility] visit. We will communicate this to the patient and arrange the recommended follow-up testing. Please do not hesitate to contact our office with any questions, . Thank you. * Mouna Ferrell MA - 05/03/2025 3:13 PM EST This patient had their annual Low Dose CT scan on 04/28/2025 with a Lung RADS Score of a4A. We will be presenting this patient's case at our Multidisciplinary Thoracic Tumor Board Conference on 05/10/2025. The recommendation from this conference will be communicated to both you and the patient. Please let us know if you would be interested in attending this conference virtually. Screening patients are typically presented between 12-12:20pm. Please reach out to RHETT Burton Coordinator to request the Teams information. CC: Albaro Parker documented in this encounter Plan of Treatment Scheduled Orders Name Type Priority Associated Diagnoses Orde r Schedule CT Chest wo Contrast (Lung-RADS F/U) Imaging Routine Lung nodule Expected: 08/01/2025, Expires: 05/14/2026 documented as of this encounter Visit Diagnoses Diagnosis Lung nodule- Primary Other diseases of lung, not elsewhere classified documented in this encounter Care Teams Company Manager Relationship Specialty Start Date End Date Rahul Becerra MD [address] [place] [address] Dr Sherita [facility] ARIANNE Payne PCP - General Internal Medicine 03/18/17 documented as of this encounter
--- OUTSIDE RECORDS SUMMARY | 2025-05-14 10:34 | XMS_ITS | Clinical Summary ---
Author Organization [facility] [address] [facility] Address [address] [place] [address] Phone Care Team Providers Care Provider Enrollment Specialist Name Role Phone Rahul Becerra MD Primary Care Provider [phone] Encounters Date Type Department Care Team Description 05/03/2025 Telephone Lung Screening Program - [place] [address] [phone] Mouna Ferrell [place] 04/28/2025 3:17 PM EST - 04/28/2025 11:59 PM EST Hospital Encounter [facility] CT Scan [address] [place] [phone] Pulmonary nodule less than 6 mm determined by computed tomography of lung Discharge Disposition: Home or Self Care 04/05/2025 Telephone Lung Screening Program - [place] [address] [phone] Sona Candelario MA from Last 3 Months [...] on file Sexual Orientation Not on file Plan of Treatment Health Maintenance Due Date Last Done Comments Colorectal Cancer Screening: Colonoscopy 1955 DTaP,Tdap,and Td Vaccines (1 - Tdap) 1974 Zoster Vaccines (1 of 2) 1974 RSV Immunization Adult Patients (1 - Risk 50-74 years 1-dose series) 2005 Pneumococcal Vaccine: 50+ Years (3 of 3 - PCV) 01/20/2022 01/20/2021, 02/12/2018, 07/28/2012 Abdominal Aortic Aneurysm (AAA) Screen 04/17/2022 Cholesterol Screening (Lipid Panel) 04/17/2022 Falls Risk Assessment 04/17/2022 Hepatitis C Screening 04/17/2022 Medicare Annual Wellness Visit 04/17/2022 Social Influencers of Health Screening 04/17/2022 Depression Screening 05/20/2024 COVID-19 Vaccine ( season) 2025 05/18/2024, 10/25/2021, 06/08/2021, Additional history exists Influenza Vaccine (#1) 2025 , 05/06/2023, 05/21/2021, Additional history exists Hypertension/CHF/CAD Annual BMP Blood Test 04/28/2025 HIB Vaccines Aged Out No longer eligi [...] Name Priority Date/Time Associated Diagnosis Comments CT CHEST WO CONTRAST (LUNG-RADS F/U) Routine 04/28/2025 4:05 PM EST Pulmonary nodule less than 6 mm determined by computed tomography of lung from Last 3 Months Results * CT Chest wo Contrast (Lung-RADS F/U) (04/28/2025 4:05 PM EST) Anatomical Region Laterality Modality Body Computed Tomogra phy 05/03/2025 12:0 4 PM EST Impressions 05/03/2025 12:13 PM EST Impression: 1. Limited study due to extensive respiratory motion artifact. 2. New 8 x 12 mm solid nodule in the right lung apex, for which a follow-up low- dose CT is recommended in 3 months. 3. Overall progression of extensive peripheral tree-in-bud infiltrates in both lungs since 02/03/25, compatible with distal airways infection/mucous plugging. Lung-RADS Category: Lung-RADS 4A: Suspicious nodule(s). Recommend follow up with Low Dose Chest CT in 3 months. Recommendations: Continue annual screening with low-dose noncontrast chest CT in 12 months. -------- FINAL REPORT -------- Dictated By: Kaylan Ambriz Dictated Date: 05/03/2025 12:04 ET Assigned Physician: Kaylan Ambriz Reviewed and Electronically Signed By: Kaylan Ambriz Signed Date: 05/03/2025 12:13 ET Workstation ID: [id number] Transcribed By: Self Edit Transcribed Date: 05/03/2025 12:04 ET Narrative 05/03/2025 12:13 PM EST History: 69 year-old greater than 20 pack-year former smoker, asymptomatic, for short- term follow-up of a lung RADS 0 lesion. Comparison: 02/03/25 Technique: Helical volumetric imaging of the thorax was performed, using low- dose technique, without IV contrast. DLP: 300.04 mGy/cm CTDIvol: 4.89 mGy Riboxxer Iterative reconstruction technique Findings: Lungs and Airways: The study is degraded by motion artifact, requiring repeat imaging of the lower half of the chest. There is extensive pattern of peripheral tree-in-bud opacity bilaterally with overall progression of disease, including a new 8 x 12 mm solid nodule in the right lung apex (image 52 series 3). There are new areas of disease in the left upper lobe. The 4 mm nodule reported on the previous study is no longer seen. The trachea and central bronchial tree remain patent. Patchy centrilobular emphysema is again noted. Pleura: No pleural or pericardial effusions are seen. Base of neck, mediastinum and heart: The heart remains normal in size. Coronary artery calcification is again noted. No developing lymphadenopathy is seen. Soft tissues: The overlying soft tissues are unremarkable. Abdomen: This study was performed without contrast and with lower than standard dose. These factors reduce the sensitivity for detection of small lesions in the upper abdomen. Cholelithiasis is noted. Oumar Damon MD IMG CT PROCEDURES Final Result from Last 3 Months Insurance MEDICARE [facility] Care Teams Provider Enrollment Specialist Relationship Specialty Start Date End Date Rahul Becerra MD [address] [place] [address] [address] ARIANNE Payne PCP - General Internal Medicine 03/18/17
== END 2025-05-14 11:03 | disposition home or self-care (01) ==
LOC: HO.HPS 10:33
PROVIDERS: PCP Family Medicine; Visit Provider Hospitalist
DX: Z23 Encounter for immunization (principal)
CPT/HCPCS: 99214

== ENCOUNTER → 2025-05-14 10:32 | Outpatient (BNVA) | payer MEDICARE, OTHER, SELFPAY | PROVIDERS: PCP Family Medicine; Visit Provider Hospitalist | DX: G47.33 Obstructive sleep apnea (adult) (pediatric) (principal); G47.34 Idiopathic sleep related nonobstructive alveolar hypoventilation; Z99.89 Dependence on other enabling machines and devices; J41.1 Mucopurulent chronic bronchitis; R91.8 Other nonspecific abnormal finding of lung field; J31.0 Chronic rhinitis; Z87.891 Personal history of nicotine dependence; Z23 Encounter for immunization | CPT/HCPCS: 90471; 90656; 99212 ==